=== PATIENT | female | born 1950 | race Caucasian/White ===

== ENCOUNTER 2018-03-11 10:42 | Outpatient (RCR) | payer MEDICARE, MEDICAID, SELFPAY | END 2018-04-05 23:59 | disposition home or self-care (01) | LOC: CR 10:42 | PROVIDERS: PCP Family Medicine; Visit Provider Family Medicine | DX: Z51.89 Encounter for other specified aftercare (principal) ==

== ENCOUNTER 2018-07-29 14:36 | Emergency (ER) | payer MEDICARE, MEDICAID, SELFPAY ==
[2018-07-29 14:41] VITALS: BP 130/70; PULSE 80; RESP 16; TEMP 36.6; O2SAT 98
--- NOTE | 2018-07-29 16:28 | W.ED.GENAD ---
Discharge Plan Disposition Patient Disposition: HOME Condition: Fair Discharge Details Chief Complaint: RespSymp Clinical Impression: COPD (chronic obstructive pulmonary disease), URI (upper respiratory infection) Reason For Visit: uri Primary Care Provider: John Diaz ED Provider: Meggan Hernandez Home Meds and New Rx's Prescriptions: New doxycycline hyclate 100 mg capsule 100 mg PO BID Qty: 8 RF: 0 prednisone 20 mg tablet 40 mg PO DAILY Qty: 6 RF: 0 Continued lorazepam 1 mg tablet 1 mg PO HS MDD 2 mg Qty: 40 RF: 1 Combivent Respimat 4 GM mist 1 puff Inhalation QID Qty: 3 RF: 4 citalopram 20 MG tablet 40 mg PO DAILY Qty: 180 RF: 3 gabapentin 300 MG capsule 300 mg PO 1 tab am, 2tabs pm Qty: 270 RF: 4 hydroxychloroquine 200 MG tablet 200 mg PO DAILY Qty: 90 RF: 4 epinephrine [EpiPen 2-Mikel] 0.3 MG/0.3 ML auto-injector 0.3 mg IM ONCE Qty: 1 RF: 3 triamterene-hydrochlorothiazid 1 EACH capsule 1 tab-cap PO DAILY Qty: 90 RF: 4 Stiolto Respimat 2.5-2.5 mcg/actuation mist 2 puff IH DAILY Qty: 4 RF: 4 metoprolol succinate 25 mg tablet extended release 24 hr 25 mg PO DAILY Qty: 90 RF: 4 atorvastatin 80 mg tablet 80 mg PO QPM Qty: 90 RF: 4 levothyroxine 50 mcg tablet 50 mcg PO DAILY Qty: 90 RF: 4 lisinopril 2.5 mg tablet 2.5 mg PO DAILY Qty: 90 RF: 4 albuterol sulfate 2.5 MG/3 ML solution for nebulization 2.5 mg Inhalation Q4H PRN PRN30 Days RF: 2 Space Chamber Plus 1 EACH spacer 1 ea Miscellaneous PRN PRNQty: 1 RF: 0 PROVENTIL HFA 18 GM HFA.AER.AD 2 puff Inhalation Q6H PRN Qty: 1 RF: 11 acetaminophen [Tylenol] 325 MG tablet 650 mg PO Q4H PRN PRNRF: 0 aspirin 81 MG tablet,delayed release (DR/EC) 81 mg PO DAILY RF: 0 nitroglycerin [Nitrostat] 0.4 MG tablet, sublingual 0.4 mg Sublingual Q5 MIN PRN X3 PRN (Reason: Chest Pain) RF: 0 Discharge Instructions Instructions: Upper Respiratory Infection (ED) Additional Instructions: Encourage hydration. Tylenol and/or ibuprofen as needed for discomfort. Take prednisone 40 mg daily as prescribed. Doxycycline twice daily. If you develop shortness of breath, fever/chills, inability to stay hydrated or other new/worsening symptoms please seek care urgently once again. Please follow-up with primary care for reevaluation in 1 week. Referrals: John Diaz MD [Primary Care Provider] - Discharge Data Discharge Date/Time-TO BE ENTERED AT DEPARTURE: 07/29/18 16:38 HPI General Mode of arrival: ambulatory. Date/Time Provider Initiated Documentation: 07/29/18 16:14. Limitations to Documentation: no limitations. Information obtained by: patient. History of Present Illness 67 year old F presents to the emergency department with the chief complaint of cough, sore throat, described as moderate, and is localized to the mouth (sore throat). Patient reports no radiation. Patient started experiencing this day(s) (2) and it has been constant. No relieving factors improve symptom(s), No exacerbating factors reported . Patient notes cough and shortness of breath (associated with cough); denies chest pain, diaphoresis, fever/chills, headaches and loss of appetite. Patient did receive the following treatments prior to arrival, none Related Data Home Medications Medication Instructions Recorded Confirmed Combivent Respimat 1 puff INHALATION QID #3 inhaler 08/27/17 07/29/18 citalopram 40 mg PO DAILY #180 tab-cap 10/09/17 07/29/18 gabapentin 300 mg PO 1 tab am, 2tabs pm #270 10/09/17 07/29/18 tab hydroxychloroquine 200 mg PO DAILY #90 tab-cap 11/08/17 07/29/18 epinephrine [EpiPen 2-Mikel] 0.3 mg IM ONCE #1 ea 12/14/17 07/23/18 Proventil Hfa 2 puff INHALATION Q6H PRN #1 01/11/18 07/29/18 inhaler Space Chamber Plus #1 spacer 01/11/18 07/23/18 albuterol sulfate 2.5 mg INHALATION Q4H PRN PRN 30 01/11/18 07/29/18 Days vial acetaminophen [Tylenol] 650 mg PO Q4H PRN PRN tab 03/01/18 07/23/18 aspirin 81 mg PO DAILY tabec 03/01/18 07/29/18 nitroglycerin [Nitrostat] 0.4 mg SUBLINGUAL Q5 MIN PRN X3 03/01/18 07/29/18 PRN tab triamterene-hydrochlorothiazid 1 tab-cap PO DAILY #90 tab-cap 04/04/18 07/29/18 lorazepam 1 mg tablet 1 mg PO HS #40 tab MDD 2 mg 05/28/18 07/29/18 tiotropium 2.5 mcg-olodaterol 2.5 2 puff IH DAILY #4 gm 06/04/18 07/29/18 mcg/actuation mist for inhalation metoprolol succinate ER 25 mg 25 mg PO DAILY #90 tab 06/17/18 07/29/18 tablet,extended release 24 hr atorvastatin 80 mg tablet 80 mg PO QPM #90 tab 06/18/18 07/29/18 levothyroxine 50 mcg tablet 50 mcg PO DAILY #90 tab-cap 07/08/18 07/29/18 lisinopril 2.5 mg tablet 2.5 mg PO DAILY #90 tab-cap 07/15/18 07/29/18 doxycycline hyclate 100 mg PO BID #8 cap 07/29/18 prednisone 40 mg PO DAILY #6 tab 07/29/18 Previous Rx's Medication Instructions Recorded Combivent Respimat 1 puff INHALATION QID #3 inhaler 08/27/17 citalopram 40 mg PO DAILY #180 tab-cap 10/09/17 gabapentin 300 mg PO 1 tab am, 2tabs pm #270 10/09/17 tab hydroxychloroquine 200 mg PO DAILY #90 tab-cap 11/08/17 epinephrine [EpiPen 2-Mikel] 0.3 mg IM ONCE #1 ea 12/14/17 Proventil Hfa 2 puff INHALATION Q6H PRN #1 01/11/18 inhaler Space Chamber Plus #1 spacer 01/11/18 albuterol sulfate 2.5 mg INHALATION Q4H PRN PRN 30 01/11/18 Days vial acetaminophen [Tylenol] 650 mg PO Q4H PRN PRN tab 03/01/18 aspirin 81 mg PO DAILY tabec 03/01/18 nitroglycerin [Nitrostat] 0.4 mg SUBLINGUAL Q5 MIN PRN X3 03/01/18 PRN tab triamterene-hydrochlorothiazid 1 tab-cap PO DAILY #90 tab-cap 04/04/18 lorazepam 1 mg tablet 1 mg PO HS #40 tab MDD 2 mg 05/28/18 tiotropium 2.5 mcg-olodaterol 2.5 2 puff IH DAILY #4 gm 06/04/18 mcg/actuation mist for inhalation metoprolol succinate ER 25 mg 25 mg PO DAILY #90 tab 06/17/18 tablet,extended release 24 hr atorvastatin 80 mg tablet 80 mg PO QPM #90 tab 06/18/18 levothyroxine 50 mcg tablet 50 mcg PO DAILY #90 tab-cap 07/08/18 lisinopril 2.5 mg tablet 2.5 mg PO DAILY #90 tab-cap 07/15/18 doxycycline hyclate 100 mg PO BID #8 cap 07/29/18 prednisone 40 mg PO DAILY #6 tab 07/29/18 Allergies Allergy/AdvReac Type Severity Reaction Status Date / Time bee venom protein (honey bee) Allergy Severe Anaphylaxsi Unverified 07/29/18 14:46 s tetanus toxoid, adsorbed Allergy Severe swelling,fe Unverified 07/29/18 14:46 geneva benzonatate Allergy Mild rash Unverified 07/29/18 14:46 [From Tessalon Perles] amoxicillin trihydrate AdvReac Intermediate Diarrhea - Unverified 07/29/18 14:46 [From Augmentin] Severe potassium clavulanate AdvReac Intermediate Diarrhea - Unverified 07/29/18 14:46 [From Augmentin] Severe insects Allergy Severe Anaphylaxsi Uncoded 07/29/18 14:46 s General Stated Complaint: RespSymp HOLLIS: 4 Review of Systems Constitutional Reports as per HPI, Denies chills, Denies fever(s), Denies headache(s) and Denies poor appetite Eyes Reports as per HPI, Denies eye discharge and Denies irritation ENT Reports as per HPI, Denies ear discharge, Denies otalgia, Denies facial pain, Denies headache(s), Denies lip swelling, Reports nasal congestion, Reports nasal discharge, Denies neck pain, Denies sinus pain and Reports sore throat Cardiovascular Reports as per HPI, Denies chest pain, Denies dyspnea and Denies dyspnea on exertion Respiratory Reports as per HPI, Denies chest congestion, Reports cough, Denies pain on inspiration, Denies pain with cough, Denies dyspnea, Denies dyspnea on exertion and Denies wheezing Gastrointestinal Reports as per HPI, Denies abdominal pain, Denies change in bowel habits, Denies nausea and Denies vomiting Musculoskeletal Denies neck pain Integumentary/Breasts Reports as per HPI and Denies rash Neurologic Denies headache(s) Allergic/Immunologic Denies lip swelling and Denies wheezing [facility] Medical History ADHD Anxiety COPD (chronic obstructive pulmonary disease) HTN (hypertension) Hymenoptera allergy Hypothyroidism Lupus (systemic lupus erythematosus) Petit mal epilepsy Family History Mother Asthma Father Diabetes Grandfather No problems noted. Grandfather No problems noted. Grandmother No problems noted. Grandmother No problems noted. Social History household members: children and other details: 4 WITH 3 SONS current occupational status: disabled frequency: 1-2 times per week duration: 15-30 minutes/day Smoking/Tobacco Use Status: Former Tobacco Use alcohol intake: current alcohol intake frequency: a few times a month substance use type: does not use seatbelt use: always Exam Const General: cooperative, healthy appearing, comfortable, no acute distress, well developed and well groomed Nutritional Appearance: average body habitus and well nourished Orientation: alert and awake [facility] Head: normal to inspection, normocephalic and atraumatic Ears: hearing grossly normal bilaterally, external ears normal and TM's normal bilaterally General nose exam: external nose normal and nares normal Face and sinus: normal facial exam, sinuses nontender and face symmetric Mouth: oral mucosae normal, lip normal, tongue normal, oropharynx normal and moist mucous membranes Teeth and gingiva: dentition normal Throat: posterior oropharynx normal, tonsils normal and uvula midline Eyes General: appearance normal, both eyes and all related structures Neck Neck: normal visual inspection, full ROM, no lymphadenopathy and no meningeal signs Resp Effort & Inspection: normal respiratory effort, able to speak in complete sentences and no respiratory distress Auscultation: no rales, no rhonchi and wheezes (diffuse expiratory wheeze) Cardio Rate: regular rate Rhythm: regular rhythm Heart Sounds: S1 normal and S2 normal Skin General skin exam: no rashes or lesions noted Neuro General: alert and awake Cognition: normal cognition Speech: speech normal Gait: normal gait Psych Appearance: grossly normal and well kempt Mental Status: mental status grossly normal Speech and Movement: speech and movement normal Course Vital Signs Temperature 36.6 C 07/29/18 14:41 Pulse 80 07/29/18 14:41 Respiratory Rate 16 07/29/18 14:41 Blood Pressure 130/70 07/29/18 14:41 Pulse Oximetry 98 07/29/18 14:41 Temperature 36.6 C 07/29/18 14:41 Temperature Source Temporal Artery Scan 07/29/18 14:41 Pulse 80 07/29/18 14:41 Respiratory Rate 16 07/29/18 14:41 Respiratory Effort 07/29/18 14:52 Respiratory Depth Normal 07/29/18 14:52 Blood Pressure 130/70 07/29/18 14:41 Blood Pressure Position Sitting 07/29/18 14:41 Pulse Oximetry 98 07/29/18 14:41 Oxygen Delivery Method Room Air 07/29/18 14:41 Oxygen Flow Rate 0 07/29/18 14:41 Pain Level 3 07/29/18 14:41 Lab/Test Results Lab/Test Results: 07/29/18 15:00 Nasopharynx Influenza Types A,B Antigen - Final Patient is 67-year-old female with history of COPD, presenting today with chief complaints of sore throat and cough that began 2 days ago. Reports that multiple family members have been sick. States that she can have shortness of breath associated with cough but otherwise no shortness of breath based on exertion or when at rest. She denies any chest pain. Denies any GI upset. Denies any otalgia. Patient has history of anxiety, petit mal epilepsy, lupus, hypothyroidism, hypertension, ADHD, N STEMI, COPD. On exam, patient is noted to have faint expiratory really wheezing all fraire. Vital signs within normal limits. She appears nontoxic. Did note cough which appears to be dry, patient does report is been dry at home. No abnormal findings on HEENT exam. Patient has URI. However, given her history of COPD, I feel the treatment is appropriate at this time. She will largely benefit from steroids particularly given the expiratory wheeze. Patient will be placed on doxycycline and prednisone. As tomorrow is , will give her enough prednisone and steroids for tonight and tomorrow until pharmacies are open at the following day. Patient I discussed new/worsening symptoms and when to seek care urgently once again. Advised to follow-up with primary care in 1 week for reevaluation. All of her questions and concerns were addressed and she is in agreement this plan.
[2018-07-29] MEDS: Doxycycline Hyclate 100 MG CAP 400 MG PO (16:32)
[2018-07-29] MEDS: predniSONE 20 MG TAB 80 MG PO (16:32)
== END 2018-07-29 16:38 | disposition home or self-care (01) ==
PROVIDERS: Emergency Provider Physician Assistant; PCP Family Medicine
DX: J06.9 Acute upper respiratory infection, unspecified (principal); J44.9 Chronic obstructive pulmonary disease, unspecified; I10 Essential (primary) hypertension; Z87.891 Personal history of nicotine dependence
CPT/HCPCS: 87449; 99283; J7512

== ENCOUNTER 2018-09-30 02:48 | Inpatient (IN) | payer MEDICARE, MEDICAID, SELFPAY ==
[2018-09-30] VITALS (33 sets, daily range): BP systolic 101–154; BP diastolic 38–110; PULSE 65–91; RESP 2–22; TEMP 36.6–37.5; O2SAT 88–97
--- NOTE | 2018-09-30 03:16 | W.ED.GENAD ---
Discharge Plan Disposition Patient Disposition: [facility] INPATIENT Condition: Fair Discharge Details Chief Complaint: SOB Clinical Impression: Acute exacerbation of chronic obstructive pulmonary disease (COPD) Reason For Visit: ANETA Primary Care Provider: John Diaz ED Provider: Cristian Nolen [place] Meds and New Rx's Prescriptions: No Action citalopram 20 MG tablet 40 mg PO DAILY Qty: 180 RF: 3 gabapentin 300 MG capsule 300 mg PO 1 tab am, 2tabs pm Qty: 270 RF: 4 hydroxychloroquine 200 MG tablet 200 mg PO DAILY Qty: 90 RF: 4 epinephrine [EpiPen 2-Mikel] 0.3 MG/0.3 ML auto-injector 0.3 mg IM ONCE Qty: 1 RF: 3 triamterene-hydrochlorothiazid 1 EACH capsule 1 tab-cap PO DAILY Qty: 90 RF: 4 Stiolto Respimat 2.5-2.5 mcg/actuation mist 2 puff IH DAILY Qty: 4 RF: 4 metoprolol succinate 25 mg tablet extended release 24 hr 25 mg PO DAILY Qty: 90 RF: 4 atorvastatin 80 mg tablet 80 mg PO QPM Qty: 90 RF: 4 levothyroxine 50 mcg tablet 50 mcg PO DAILY Qty: 90 RF: 4 lisinopril 2.5 mg tablet 2.5 mg PO DAILY Qty: 90 RF: 4 lorazepam 1 mg tablet 1 mg PO HS MDD 2 mg Qty: 40 RF: 1 Combivent Respimat 20-100 mcg/actuation mist 1 puff Inhalation Q4H PRN (Reason: Exacerbation COPD) Qty: 3 RF: 4 albuterol sulfate 2.5 MG/3 ML solution for nebulization 2.5 mg Inhalation Q4H PRN PRN30 Days RF: 2 Space Chamber Plus 1 EACH spacer 1 ea Miscellaneous PRN PRNQty: 1 RF: 0 PROVENTIL HFA 18 GM HFA.AER.AD 2 puff Inhalation Q6H PRN Qty: 1 RF: 11 acetaminophen [Tylenol] 325 MG tablet 650 mg PO Q4H PRN PRNRF: 0 aspirin 81 MG tablet,delayed release (DR/EC) 81 mg PO DAILY RF: 0 nitroglycerin [Nitrostat] 0.4 MG tablet, sublingual 0.4 mg Sublingual Q5 MIN PRN X3 PRN (Reason: Chest Pain) RF: 0 Medical Decision Making Patient presenting with COPD exacerbation associated with low-grade fevers. No real URI symptoms to speak of. Room air saturations here, when I turn off oxygen, dipped into the 80s. She is tachypneic with some pursed lip breathing. IV is in place from EMS. We will go ahead and get EKG, chest x-ray and laboratory studies. We will give another nebulizer here. Will start her on steroids as well as antibiotics for COPD exacerbation. She will likely require admission given her hypoxemia on room air. Patient's chest x-ray shows no infiltrates. EKG is unchanged from previous done this summer. Laboratory studies have a negative troponin. White count is normal. Chemistries unremarkable other than magnesium being a little low, this will be replaced. Case discussed with hospitalist for admission. Patient will be placed on MedSurg for further management of COPD exacerbation. Medical Records Medical records reviewed: Yes I reviewed the patient's medical records. Lab Data Lab results reviewed: Yes I reviewed the patient's lab results. ECG Data Attestation: I personally reviewed and interpreted this ECG (s) as follows: Prior ECG tracings: available for review Interpretation: Sinus rhythm at a rate of 85. Normal axis and intervals. Nonspecific ST depressions in the inferior lateral leads which have been present since February 2018. They do not appear significantly different. HPI General Mode of arrival: EMS. Date/Time Provider Initiated Documentation: 09/30/18 03:06. Limitations to Documentation: no limitations. Information obtained by: patient and old records reviewed. HPI Narrative: Patient presents by ambulance with increasing shortness of breath and wheezing. Patient has history of COPD. She has had increasing shortness of breath over days to weeks. She reports low-grade fevers for the last couple of days. She denies having nasal congestion or discharge, sore throat, earaches. She has a dry nonproductive cough. She denies having chest pain. She denies any GI symptoms. She denies leg pain or leg swelling. She ended up using her Combivent inhaler a number of times tonight. She did use an albuterol updraft. She has also taken Ativan because she was becoming so anxious. EMS reports room air saturations in the 80s. She received an updraft in route to the hospital. On nasal cannula oxygen her O2 saturations are in the low to mid 90s. She is not on oxygen chronically. Related Data Home Medications Medication Instructions Recorded Confirmed citalopram 40 mg PO DAILY #180 tab-cap 10/09/17 09/30/18 gabapentin 300 mg PO 1 tab am, 2tabs pm #270 10/09/17 09/30/18 tab hydroxychloroquine 200 mg PO DAILY #90 tab-cap 11/08/17 09/30/18 epinephrine [EpiPen 2-Mikel] 0.3 mg IM ONCE #1 ea 12/14/17 09/30/18 Proventil Hfa 2 puff INHALATION Q6H PRN #1 01/11/18 09/30/18 inhaler Space Chamber Plus #1 spacer 01/11/18 09/03/18 albuterol sulfate 2.5 mg INHALATION Q4H PRN PRN 30 01/11/18 09/30/18 Days vial acetaminophen [Tylenol] 650 mg PO Q4H PRN PRN tab 03/01/18 09/30/18 aspirin 81 mg PO DAILY tabec 03/01/18 09/30/18 nitroglycerin [Nitrostat] 0.4 mg SUBLINGUAL Q5 MIN PRN X3 03/01/18 09/30/18 PRN tab triamterene-hydrochlorothiazid 1 tab-cap PO DAILY #90 tab-cap 04/04/18 09/30/18 tiotropium 2.5 mcg-olodaterol 2.5 2 puff IH DAILY #4 gm 06/04/18 09/30/18 mcg/actuation mist for inhalation metoprolol succinate ER 25 mg 25 mg PO DAILY #90 tab 06/17/18 09/30/18 tablet,extended release 24 hr atorvastatin 80 mg tablet 80 mg PO QPM #90 tab 06/18/18 09/30/18 levothyroxine 50 mcg tablet 50 mcg PO DAILY #90 tab-cap 07/08/18 09/30/18 lisinopril 2.5 mg tablet 2.5 mg PO DAILY #90 tab-cap 07/15/18 09/30/18 lorazepam 1 mg tablet 1 mg PO HS #40 tab MDD 2 mg 08/07/18 09/30/18 ipratropium 20 mcg-albuterol 100 1 puff INHALATION Q4H PRN #3 gm 09/04/18 09/30/18 mcg/actuation mist for inhalation Previous Rx's Medication Instructions Recorded citalopram 40 mg PO DAILY #180 tab-cap 10/09/17 gabapentin 300 mg PO 1 tab am, 2tabs pm #270 10/09/17 tab hydroxychloroquine 200 mg PO DAILY #90 tab-cap 11/08/17 epinephrine [EpiPen 2-Mikel] 0.3 mg IM ONCE #1 ea 12/14/17 Proventil Hfa 2 puff INHALATION Q6H PRN #1 01/11/18 inhaler Space Chamber Plus #1 spacer 01/11/18 albuterol sulfate 2.5 mg INHALATION Q4H PRN PRN 30 01/11/18 Days vial acetaminophen [Tylenol] 650 mg PO Q4H PRN PRN tab 03/01/18 aspirin 81 mg PO DAILY tabec 03/01/18 nitroglycerin [Nitrostat] 0.4 mg SUBLINGUAL Q5 MIN PRN X3 03/01/18 PRN tab triamterene-hydrochlorothiazid 1 tab-cap PO DAILY #90 tab-cap 04/04/18 tiotropium 2.5 mcg-olodaterol 2.5 2 puff IH DAILY #4 gm 06/04/18 mcg/actuation mist for inhalation metoprolol succinate ER 25 mg 25 mg PO DAILY #90 tab 06/17/18 tablet,extended release 24 hr atorvastatin 80 mg tablet 80 mg PO QPM #90 tab 06/18/18 levothyroxine 50 mcg tablet 50 mcg PO DAILY #90 tab-cap 07/08/18 lisinopril 2.5 mg tablet 2.5 mg PO DAILY #90 tab-cap 07/15/18 lorazepam 1 mg tablet 1 mg PO HS #40 tab MDD 2 mg 08/07/18 ipratropium 20 mcg-albuterol 100 1 puff INHALATION Q4H PRN #3 gm 09/04/18 mcg/actuation mist for inhalation Allergies Allergy/AdvReac Type Severity Reaction Status Date / Time bee venom protein (honey bee) Allergy Severe Anaphylaxsi Unverified 09/30/18 03:06 s tetanus toxoid, adsorbed Allergy Severe swelling,fe Unverified 09/30/18 03:06 geneva benzonatate Allergy Mild rash Unverified 09/30/18 03:06 [From Tessalon Perles] amoxicillin trihydrate AdvReac Intermediate Diarrhea - Unverified 09/30/18 03:06 [From Augmentin] Severe potassium clavulanate AdvReac Intermediate Diarrhea - Unverified 09/30/18 03:06 [From Augmentin] Severe insects Allergy Severe Anaphylaxsi Uncoded 09/30/18 03:06 s General Stated Complaint: SOB HOLLIS: 3 Review of Systems Constitutional Denies chills, Reports fever(s), Denies headache(s), Denies malaise and Denies weakness Eyes Denies eye discharge and Denies eye pain ENT Denies otalgia, Denies facial pain, Denies headache(s), Denies nasal congestion, Denies nasal discharge and Denies sore throat Cardiovascular Denies chest pain, Denies diaphoresis, Denies syncope, Denies pedal edema, Denies palpitations and Reports dyspnea Respiratory Reports cough, Reports dyspnea and Reports wheezing Gastrointestinal Denies abdominal pain, Denies diarrhea, Denies nausea and Denies vomiting Genitourinary Denies dysuria, Denies pelvic pain and Denies flank pain Musculoskeletal Denies back pain, Denies myalgias and Denies numbness Integumentary/Breasts Denies rash Neurologic Denies syncope, Denies headache(s), Denies numbness and Denies weakness Endocrine Denies palpitations Allergic/Immunologic Reports wheezing [facility] Medical History Anxiety (Chronic 09/03/14) 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 Grandfather No problems noted. Grandmother No problems noted. Grandmother No problems noted. Social History household members: children and other details: 4 WITH 3 SONS current occupational status: disabled frequency: 1-2 times per week duration: 15-30 minutes/day Smoking and Tabacco status: Former Tobacco Use alcohol intake: current alcohol intake frequency: a few times a month substance use type: does not use Seatbelt use: always Exam Const General: cooperative and no acute distress Orientation: alert and oriented x3 HENMT Head: normocephalic and atraumatic Neck Neck: normal visual inspection, trachea midline and supple Resp Effort & Inspection: cough, pursed lip breathing, tachypneic, no tripod positioning and no use of accessory muscles Auscultation: wheezes Cardio Rate: regular rate Rhythm: regular rhythm Heart Sounds: S1 normal and S2 normal Pulses: radial pulses present GI Palpation: soft, not firm and nontender Skin Rashes: no rashes Neuro General: alert, oriented x3, no focal motor deficits and CN's II-XI intact bilaterally Extrem General: no clubbing, cyanosis or edema and no calf tenderness Course Vital Signs Temperature 98.8 F 09/30/18 02:48 Pulse 90 09/30/18 02:48 Respiratory Rate 20 09/30/18 02:48 Blood Pressure 145/80 H 09/30/18 02:48 Pulse Oximetry 93 L 09/30/18 02:48 Temperature 98.8 F 09/30/18 02:48 Temperature Source Temporal Artery Scan 09/30/18 02:48 Pulse 90 09/30/18 02:48 Respiratory Rate 20 09/30/18 03:01 Respiratory Effort 09/30/18 03:01 Respiratory Depth Shallow 09/30/18 03:01 Respiratory Pattern Irregular 09/30/18 03:01 Blood Pressure 145/80 H 09/30/18 02:48 Pulse Oximetry 93 L 09/30/18 02:48 Oxygen Delivery Method Nasal Cannula 09/30/18 02:48 Oxygen Flow Rate 2 09/30/18 02:48 Pain Level 0 09/30/18 02:48
--- NOTE | 2018-09-30 03:45 | DI.RAD_ITS ---
SYMPTOMS/DIAGNOSIS: SHORTNESS OF BREATH PORTABLE AP CHEST: Comparison is made with [id number]. The heart size is normal. There are underlying emphysematous and fibrotic changes. The lungs are suboptimally inflated. No infiltrate or effusion is seen. Mild pulmonary edema can not be excluded. There is an old proximal humeral fracture on the left. IMPRESSION: Limited exam. Question of mild pulmonary edema vs poor pulmonary inflation.
[2018-09-30] MEDS: methylPREDNISolone SUCC 125 MG VIAL IVP (03:58)
[2018-09-30] MEDS: Albuterol 2.5 MG/3 ML INH SOLN VIAL UPD (03:58)
[2018-09-30 03:59] LABS: Abs Immature Grans 0.02 k/cumm (0.0-0.09); Absolute Basophil Count 0.02 k/cumm (0.0-0.2); Absolute Eosinophil Count 0.04 k/cumm (0.0-0.7); Absolute Lymphocyte Count 0.62 k/cumm (1.2-3.4); Absolute Monocyte Count 0.65 k/cumm (0.11-0.7); Absolute Neutrophil Count 5.18 k/cumm (1.2-6.7); Basophils % 0.3; Eosinophils % 0.6; HCT 41.1 % (36.0-46.0); HGB 13.8 g/dL (12.0-15.5); Immature Grans % 0.3; Lymphocytes % 9.5; Mean Corp. HGB Concentration 33.6 g/dL (32.0-36.0); Mean Corpuscular Hemoglobin 29.9 pg (27.0-33.0); Mean Corpuscular Volume 89.2 fL (80-95); Mean Platelet Volume 11.2 fL (8.0-11.0); Neutrophils % 79.3; Platelet Count 197 x1000/uL (130-400); RBC 4.61 m/cumm (4.00-5.20); RBC Distribution Width 12.9 % (11.7-14.6); White Blood Cell Count 6.53 k/cumm (4.4-10.8)
[2018-09-30] MEDS: Normal Saline Flush 10 ML SYR IVP ×3 (03:59→20:34)
--- NOTE | 2018-09-30 04:05 | DI.VRAD_ITS ---
EXAM: XR Chest, 1 View EXAM DATE/TIME: 09/30/2018 3:35 AM CLINICAL HISTORY: 67 years old, female; Signs and symptoms; Cough and shortness of breath; Patient HX: SOB and cough, HX copd TECHNIQUE: XR of the chest, 1 view. COMPARISON: CR CHEST 2 VIEWS PA,LAT 02/28/2018 4:37 PM FINDINGS: Lungs: Pulmonary vessels somewhat indistinct. No focal infiltrate. Pleural space: Unremarkable. No evidence of pneumothorax. Heart/Mediastinum: Unremarkable. Heart size within normal limits for technique. Bones/joints: Unremarkable. IMPRESSION: Possibly mild pulmonary edema. Dictated and Authenticated by: Saul Araujo MD. Ordering:LAURE Foster MD
[2018-09-30 04:07] LABS: BUN 11 mg/dL (7-18); CO2 30.4 mmol/L (21.0-32.0); CREATININE 0.96 mg/dL (0.55-1.02); Chloride 99 mmol/L (98-107); Estimated GFR 57.63 (mL/min/1.73m2); Glucose 115 mg/dL (70-100); Magnesium 1.6 mg/dL (1.8-2.4); Potassium 3.8 mmol/L (3.5-5.1); Troponin I 0.02 ng/mL (0.00-0.06)
[2018-09-30 04:22] LABS: Anion Gap 7.6 mmol/L (3-11); Sodium 137 mmol/L (136-145)
[2018-09-30] MEDS: MAGNESIUM SULFATE 2 GM/50 ML BAG IVPB ×2 (04:24→11:34)
--- NOTE | 2018-09-30 04:54 | HPE_ITS ---
Date of service: 09/30/18 Time of Service: 04:54 Assessment and Plan (1) COPD exacerbation: Start date: 09/30/18 Start time: 05:15 Current visit: Yes Status: Acute This a 67-year-old lady who was admitted for COPD exacerbation having responded to nebulizer treatments and Solu-Medrol in the emergency room along with oxygen supplementation. Chest x-ray did show possible vascular congestion though she has no history of CHF with [place] CAD but no history of stenting in the past. She received Lasix IV and has responded though she still has pursed lip breathing and has very little air movement. She had a low magnesium with IV magnesium given and this will be followed up during the hospital stay. Her potassium is in normal range which should be followed with supplement if needed while on diuresis. Continue treatment with Rocephin for coverage of possible bronchitis or community acquired pneumonia not manifested on chest x-ray with follow-up chest x-ray as indicated. She is usually not on oxygen at home though she is oxygen dependent during the initial point of the admission this should be reevaluated prior to discharge. She does not appear to have much respiratory reserve. She is a full code. (2) CAD (coronary artery disease), [place] coronary artery: Current visit: Yes Status: Chronic Patient has no symptoms of cardiac ischemia with her respiratory distress and will have troponins trended with monitoring without telemetry at this point. If her labs become positive consider monitor with telemetry being that she is a full code. (3) Anxiety: Current visit: No Status: Chronic Patient is quite anxious with her respiratory distress and did treat with Ativan at home. This is a chronic therapy for her chronic anxiety and will be continued during this hospital stay. Watch for oversedation. History of Present Illness Chief Complaint: Increasing Dyspnea with Wheeze and low grade fever Narrative: This is a 67 year old female patient who presents by ambulance with increasing shortness of breath and wheezing. Patient has history of COPD. She has had increasing shortness of breath over days at the onset of cold symptoms 2 weeks ago while she was in [place] and worsening the night of admission. She reports low-grade fevers for the last couple of days. She denies having nasal congestion or discharge, sore throat, earaches. She has a dry nonproductive cough. She denies having chest pain. She denies any GI symptoms. She denies leg pain or leg swelling. She ended up using her Combivent inhaler a number of times tonight prior to admission. She did use an albuterol updraft. She has also taken Ativan because she was becoming so anxious. EMS reports room air saturations in the 80s. She received an updraft in route to the hospital. On nasal cannula oxygen her O2 saturations are in the low to mid 90s. She is not on oxygen chronically. She does have a history of CAD and chest x-ray did reveal vascular congestion though she has never had a history of heart failure. Review of Systems Review of Systems Constitutional Denies chills, Reports fever(s), Denies headache(s), Denies malaise and Denies weakness Eyes Denies eye discharge and Denies eye pain ENT Denies otalgia, Denies facial pain, Denies headache(s), Denies nasal congestion, Denies nasal discharge and Denies sore throat Cardiovascular Denies chest pain, Denies diaphoresis, Denies syncope, Denies pedal edema, Denies palpitations and Reports dyspnea Respiratory Reports cough, Reports dyspnea and Reports wheezing Gastrointestinal Denies abdominal pain, Denies diarrhea, Denies nausea and Denies vomiting Genitourinary Denies dysuria, Denies pelvic pain and Denies flank pain Musculoskeletal Denies back pain, Denies myalgias and Denies numbness Integumentary/Breasts Denies rash Neurologic Denies syncope, Denies headache(s), Denies numbness and Denies weakness Endocrine Denies palpitations Allergic/Immunologic Reports wheezing [facility] Medical History Anxiety (Chronic 09/03/14) 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 Grandfather No problems noted. Grandmother No problems noted. Grandmother No problems noted. Social History household members: children and other details: 4 WITH 3 SONS current occupational status: disabled frequency: 1-2 times per week duration: 15-30 minutes/day Smoking and Tabacco status: Former Tobacco Use alcohol intake: current alcohol intake frequency: a few times a month substance use type: does not use Seatbelt use: always Meds Home Medications Medication Instructions Recorded Confirmed Type citalopram 40 mg PO DAILY #180 tab-cap 10/09/17 09/30/18 Rx gabapentin 300 mg PO 1 tab am, 2tabs pm #270 10/09/17 09/30/18 Rx tab hydroxychloroquine 200 mg PO DAILY #90 tab-cap 11/08/17 09/30/18 Rx epinephrine [EpiPen 2-Mikel] 0.3 mg IM ONCE #1 ea 12/14/17 09/30/18 Rx Proventil Hfa 2 puff INHALATION Q6H PRN #1 01/11/18 09/30/18 Rx inhaler Space Chamber Plus #1 spacer 01/11/18 09/03/18 Rx albuterol sulfate 2.5 mg INHALATION Q4H PRN PRN 30 01/11/18 09/30/18 Rx Days vial acetaminophen [Tylenol] 650 mg PO Q4H PRN PRN tab 03/01/18 09/30/18 Rx aspirin 81 mg PO DAILY tabec 03/01/18 09/30/18 Rx nitroglycerin [Nitrostat] 0.4 mg SUBLINGUAL Q5 MIN PRN X3 03/01/18 09/30/18 Rx PRN tab triamterene-hydrochlorothiazid 1 tab-cap PO DAILY #90 tab-cap 04/04/18 09/30/18 Rx tiotropium 2.5 mcg-olodaterol 2.5 2 puff IH DAILY #4 gm 06/04/18 09/30/18 Rx mcg/actuation mist for inhalation metoprolol succinate ER 25 mg 25 mg PO DAILY #90 tab 06/17/18 09/30/18 Rx tablet,extended release 24 hr atorvastatin 80 mg tablet 80 mg PO QPM #90 tab 06/18/18 09/30/18 Rx levothyroxine 50 mcg tablet 50 mcg PO DAILY #90 tab-cap 07/08/18 09/30/18 Rx lisinopril 2.5 mg tablet 2.5 mg PO DAILY #90 tab-cap 07/15/18 09/30/18 Rx lorazepam 1 mg tablet 1 mg PO HS #40 tab MDD 2 mg 08/07/18 09/30/18 Rx ipratropium 20 mcg-albuterol 100 1 puff INHALATION Q4H PRN #3 gm 09/04/18 09/30/18 Rx mcg/actuation mist for inhalation Allergies Allergy/AdvReac Type Severity Reaction Status Date / Time bee venom protein (honey bee) Allergy Severe Anaphylaxsi Unverified 09/30/18 03:06 s tetanus toxoid, adsorbed Allergy Severe swelling,fe Unverified 09/30/18 03:06 geneva benzonatate Allergy Mild rash Unverified 09/30/18 03:06 [From Tessalon Perles] amoxicillin trihydrate AdvReac Intermediate Diarrhea - Unverified 09/30/18 03:06 [From Augmentin] Severe potassium clavulanate AdvReac Intermediate Diarrhea - Unverified 09/30/18 03:06 [From Augmentin] Severe insects Allergy Severe Anaphylaxsi Uncoded 09/30/18 03:06 s Exam Const General: cooperative, acute distress mild and not anxious Nutritional Appearance: overweight [facility] Head: normocephalic and atraumatic Ears: external ears normal General nose exam: external nose normal Face and sinus: face symmetric Mouth: oral mucosae normal, oropharynx normal and mucous membranes dry Eyes Sclera: sclerae normal Pupils: PERRL EOM: EOM intact bilaterally Neck Neck: no lymphadenopathy and supple Thyroid: thyroid normal Chest Chest: normal inspection of the chest Resp Effort & Inspection: pursed lip breathing, no respiratory distress, tachypneic and prolonged expiratory phase Auscultation: bronchovesicular breath sounds, diminished lung sounds bilaterally, rhonchi and wheezes Cardio Jugular venous pressure: no JVD Rate: regular rate Rhythm: regular rhythm Heart Sounds: S1 normal and S2 normal Pulses: radial pulses present GI Inspection: normal to inspection Palpation: soft, no hepatosplenomegaly and nontender Percussion: normal to percussion Auscultation: normal bowel sounds General: deferred Back/Spine/Pelvis Back: no CVA tenderness and No back tenderness Cervical Spine: cervical ROM normal Thoracic/Lumbar Spine: thoracic and lumbar spine normal to inspection and kyphosis (Mild) Skin General skin exam: no rashes or lesions noted, turgor normal and dry skin ([place] tone) Lesions: no lesions Rashes: no rashes Hair: general thinning Neuro General: alert, awake and oriented x3 Cranial Nerves: CN's II-XI intact bilaterally Extrem General: full ROM, normal capillary refill, no clubbing, cyanosis or edema and muscle atrophy Psych Appearance: grossly normal and well kempt Mental Status: mental status grossly normal Mood: congruent mood Affect: anxious affect Attitude: cooperative Thought Process: normal Thought Content: normal Insight: insight good Judgment: judgment good Results Labs : 09/30/18 03:40 09/30/18 05:50 Laboratory Results - last 24 hr 09/30/18 09/30/18 03:40 03:40 WBC 6.53 RBC 4.61 Hgb 13.8 Hct 41.1 MCV 89.2 MCH 29.9 MCHC 33.6 RDW 12.9 Plt Count 197 MPV 11.2 H Immature Gran % 0.3 Neutrophils % 79.3 Lymphocytes % 9.5 Monocytes % 10.0 Eosinophils % 0.6 Basophils % 0.3 Absolute Neutrophils 5.18 Absolute Lymphocytes 0.62 L Absolute Monocytes 0.65 Absolute Eosinophils 0.04 Absolute Basophils 0.02 Sodium 137 Potassium 3.8 Chloride 99 Carbon Dioxide 30.4 Anion Gap 7.6 BUN 11 Creatinine 0.96 Estimated GFR/1.73 m2 57.63 Glucose 115 H Calcium 8.0 L Magnesium 1.6 L Troponin I 0.02 Last Vital Signs Temp 37.1 C 09/30/18 02:48 Pulse 83 09/30/18 03:58 Resp 20 09/30/18 03:58 BP 145/80 H 09/30/18 02:48 Pulse Ox 88 L 09/30/18 04:04
[2018-09-30] MEDS: Furosemide 20 MG/2 ML VIAL IVP (05:55)
[2018-09-30] MEDS: Levothyroxine 50 MCG TAB PO (05:56)
[2018-09-30 06:22] LABS: ALT 20 U/L (12-78); AST 25 U/L (15-37); Albumin 3.5 g/dL (3.4-5.0); Alkaline Phosphatase 63 U/L (46-116); Anion Gap 6.3 mmol/L (3-11); BUN 11 mg/dL (7-18); Bilirubin, Total 0.4 mg/dL (0.2-1.0); CO2 29.7 mmol/L (21.0-32.0); CREATININE 0.93 mg/dL (0.55-1.02); Calcium 8.5 mg/dL (8.5-10.1); Chloride 99 mmol/L (98-107); Estimated GFR 59.78 (mL/min/1.73m2); Glucose 136 mg/dL (70-100); Sodium 135 mmol/L (136-145); Total Protein 7.1 g/dL (6.4-8.2)
[2018-09-30 06:31] LABS: TSH (W/Ref FT4) 0.91 uIU/mL (0.358-3.74); Troponin I 0.03 ng/mL (0.00-0.06)
[2018-09-30 09:34] LABS: Troponin I 0.02 ng/mL (0.00-0.06)
[2018-09-30] MEDS: Pantoprazole 40 MG VIAL IVP (09:40)
[2018-09-30] MEDS: Hydroxychloroquine 200 MG TAB PO (09:41)
[2018-09-30] MEDS: Citalopram 20 MG TAB 40 MG PO (09:41)
[2018-09-30] MEDS: Triamterene 37.5/HCTZ 25 CAP PO (09:41)
[2018-09-30] MEDS: Lisinopril 5 MG TAB 2.5 MG PO (09:42)
[2018-09-30] MEDS: Magnesium Oxide 400 MG TAB PO ×2 (09:42→20:35)
[2018-09-30] MEDS: Aspirin E.C. 81 MG TABEC PO (09:42)
[2018-09-30] MEDS: Gabapentin 300 MG CAP PO (09:43)
[2018-09-30] MEDS: Metoprolol CR 25 MG TABCR PO (09:43)
[2018-09-30] MEDS: methylPREDNISolone SUCC 125 MG VIAL 80 MG IVP (11:33)
[2018-09-30] MEDS: Enoxaparin 40 MG/0.4 ML SYR SC (11:34)
--- NOTE | 2018-09-30 12:00 | PHARADMIT ---
Addendum entered by Amos Shelley MurrayZhang SUNITA 10/04/18 11:51: Pharmacy Note Subjective MD noted that patient is slow to recover. Objective VS-OK SA-O2-92% ON 2 L, Labs-WNL, Had BM Assessment MD ordered Combivent Inhaler prn at patients request, she refused updrafts. Plan No steroid taper yet Original Note: Addendum entered by Amos Shelley MurrayZhang [facility] 10/03/18 12:39: Pharmacy Note Subjective Patient not better today, will stay another night. Objective VS-OK SA-O2-91% Rm Air, Lytes, H&H,Plts-OK SCr-1.01 Lasst BM 09/30/2018 Assessment Rocephin & Solu-Medrol continue. Plan awaiting steroid tapeR Original Note: Addendum entered by Amos Shelley MurrayZhang [facility] 10/01/18 12:36: Pharmacy Note Subjective Flu swab negative, no other culture taken. COPD exacerbation Objective VS-OK SCr-1.05 Mag- 2.6 Wgt-71.1 kg BM yesterday Assessment On IV Rocephin for possible CAP or bronchitis. On IV steroids. Plan Patient used her own supply of Lorazepam last night, nursing has removed it and the med is in the Pharmacy Patients med drawer Original Note: Admission Pharmacy Clinical Review COPD exacerbation Code Status Full Code Current Weight 68.5 kg Renally Cleared and Narrow Therapeutic Index Meds Crcl ~49.3 mL/min using adjusted body weight current meds okay; triamterene/HCTZ- contraindicated in pts wit anuria, acute and chronic renal insufficiency, or significant renal impairment QTc Value / Action Taken QTc 445 BP Control, Fever BP 101/59 afebrile Electrolytes reviewed Na 135 mag 1.6 DVT Prophylaxis enoxaparin Opiate Usage / Scheduled Bowel Regimen Ordered no/prn Plt/SCr for Heparin / Enoxaparin plt 197 SCr 0.93 INR for Warfarin n/a H/H stable, WBC/Bands h/h 13.8/41.1 wbc 6.53 Antibiotic appropriateness ceftriaxone (day 1) Cultures and Sensitivities rapid flu- negative Surgical ABX d/c within 24 hr n/a DM control / Insulin Dosing BG 136 none Heart Failure (Check EF%) (ANTHONY's, B-Block, Diuretics) lisinopril, metoprolol, triamterene/HCTZ IV to PO Switch n/a Home Meds Reviewed multiple anticholinergic meds- tiotropium, ipratropium multiple sympathomimetics- albuterol, epinephrine, olodaterol Home Meds Not Ordered epinephrine (PRN) and tiotropium/olodaterol Comments
[2018-09-30] MEDS: Albuterol/Ipratropium 3 ML UPD VIAL UPD ×2 (12:46→18:15)
--- NOTE | 2018-09-30 15:25 | CHAPLAIN ---
Thanh invited me to sit and talk with her. She shared some personal history, telling me about moving to [place] from [place] with a boyfriend and she stayed after their relationship ended. She has had other relationships, but said she is better off by herself. Her sons moved in with her so she could afford to stay in her house. Thanh was raised [employer]oroastrian, but does not attend [employer] now. She asked me to pray for her later.
--- NOTE | 2018-09-30 17:07 | PDOC.CMIN ---
Care Management Initial Assess REASON FOR HOSPITALIZATION:: COPD Exacerbation PAST MEDICAL HISTORY/PAST SURGICAL HISTORY:: Anxiety, Petit mal epilepsy, lupus, hypothyroidism, hymenoptera allergy, esential hypertension, ADHD, NSTEMI, COPD, ankle surgery PREVIOUS FUNCTIONAL STATUS/SOCIAL/FAMILY SUPPORTS:: Thanh is retired and divorces. She resides in [place], her son, Apollo resides with her. She also has a daughter who resides in [facility] and two other sons. She is normally independent with ADLs in the community. CURRENT FUNCTIONAL STATUS:: Thanh was lying on her side, sleeping with her lights off when CM attempted to meet with her. Has patient been provided with information about the portal?: Yes Did the patient sign up for the portal?: No CODE STATUS:: Full Code INSURANCE COVERAGE / FINANCIAL ISSUES:: Medicaid, Medicare CURRENT HOME/COMMUNITY SERVICES/EQUIPMENT:: Combivent inhaler. PRIMARY CARE PHYSICIAN:: John Diaz MD. POTENTIAL DISCHARGE NEEDS:: Follow up appointment, discussion around community based supports; pulmonary rehab. PATIENT/FAMILY EDUCATION NEEDS:: Review discharge instructions, discuss Ask Me Three. ANTICIPATED BARRIERS TO DISCHARGE:: None identified. TRANSPORTATION:: Via private vehicle with family. PLAN:: Thanh will return home when ready per MD. She will follow up with her PCP and plan of care as prescribed. She will trnasport home via private vehicle with her son.
[2018-09-30] MEDS: Gabapentin 300 MG CAP 600 MG PO (18:17)
[2018-09-30] MEDS: methylPREDNISolone SUCC 125 MG VIAL 60 MG IVP (20:34)
[2018-09-30] MEDS: Atorvastatin 40 MG TAB 80 MG PO (20:34)
[2018-09-30] MEDS: LORazepam 1 MG TAB PO (22:55)
[2018-10-01] VITALS (7 sets, daily range): BP systolic 119–179; BP diastolic 40–93; PULSE 56–73; RESP 18–21; TEMP 36.5–36.8; O2SAT 89–98
[2018-10-01] MEDS: methylPREDNISolone SUCC 125 MG VIAL 60 MG IVP ×3 (03:55→19:47)
[2018-10-01] MEDS: Normal Saline Flush 10 ML SYR IVP ×4 (03:55→19:47)
[2018-10-01] MEDS: Levothyroxine 50 MCG TAB PO (06:26)
[2018-10-01 07:15] LABS: Abs Immature Grans 0.02 k/cumm (0.0-0.09); Absolute Lymphocyte Count 0.52 k/cumm (1.2-3.4); HGB 12.9 g/dL (12.0-15.5); Immature Grans % 0.2; Lymphocytes % 5.5; Mean Corp. HGB Concentration 33.1 g/dL (32.0-36.0); Mean Corpuscular Hemoglobin 29.5 pg (27.0-33.0); Mean Platelet Volume 11.6 fL (8.0-11.0); Monocytes % 5.3; Platelet Count 224 x1000/uL (130-400); RBC 4.38 m/cumm (4.00-5.20); RBC Distribution Width 12.9 % (11.7-14.6); White Blood Cell Count 9.52 k/cumm (4.4-10.8)
[2018-10-01 07:21] LABS: Absolute Neutrophil Count 8.47 k/cumm (1.2-6.7)
[2018-10-01 07:26] LABS: Anion Gap 9.9 mmol/L (3-11); BUN 26 mg/dL (7-18); CO2 28.1 mmol/L (21.0-32.0); CREATININE 1.05 mg/dL (0.55-1.02); Calcium 8.7 mg/dL (8.5-10.1); Chloride 96 mmol/L (98-107); Estimated GFR 51.96 (mL/min/1.73m2); Glucose 154 mg/dL (70-100); Magnesium 2.6 mg/dL (1.8-2.4); Potassium 3.9 mmol/L (3.5-5.1); Sodium 134 mmol/L (136-145)
[2018-10-01] MEDS: Lisinopril 5 MG TAB 2.5 MG PO (08:12)
[2018-10-01] MEDS: Gabapentin 300 MG CAP PO (08:12)
[2018-10-01] MEDS: Metoprolol CR 25 MG TABCR PO (08:13)
[2018-10-01] MEDS: Hydroxychloroquine 200 MG TAB PO (08:13)
[2018-10-01] MEDS: Citalopram 20 MG TAB 40 MG PO (08:13)
[2018-10-01] MEDS: Aspirin E.C. 81 MG TABEC PO (08:13)
[2018-10-01] MEDS: Magnesium Oxide 400 MG TAB PO ×2 (08:13→19:46)
[2018-10-01] MEDS: Pantoprazole 40 MG VIAL IVP (08:14)
[2018-10-01] MEDS: Enoxaparin 40 MG/0.4 ML SYR SC (08:15)
[2018-10-01] MEDS: Triamterene 37.5/HCTZ 25 CAP PO (08:27)
--- NOTE | 2018-10-01 11:45 | PDOC.CMPRO ---
Care Management Progress Note S/O: Thanh was sitting up in her chair, much more alert and fully engaged with this engineering writer, telling stories about her sons and her life. She reported having rescue inhalers and OP/PT at [facility] but reported no other equipment. She was open to discussing home O2 and the possibility of Pulmonary Rehab if deemed appropriate. She spoke in length about the support of her three sons who reside in her home and help with ADLs and financial considerations. CM will continue to follow. A: 67 year old female admitted to [facility] 09/30/18 for COPD Exacerbation P: Thahn will return home when ready per MD. She will follow up with her PCP and plan of care as prescribed. Undetermined if she will qualify for Pulmonary Rehab and Home O2; TBD by RT. CM will continue to follow. Thanh will transport home via private
--- NOTE | 2018-10-01 15:16 | PGE_ITS ---
Date of Service Date of service: 10/01/18 Time of Service: 15:14 Assessment and Plan (1) COPD exacerbation: Current visit: Yes Status: Acute Severe by PFTs in 2015. Currently with acute exacerbation. Continue IV steroids, and given change in cough also on antibiotics. Continue nebs. (2) CAD (coronary artery disease), [place] coronary artery: Current visit: Yes Status: Chronic Asymptomatic, with negative initial troponin. Continue ASA, statin, and BB. Patient also on ANTHONY-I as well as Triamterene/HCTZ for blood pressure control. (3) Lupus (systemic lupus erythematosus): Current visit: No Status: Chronic Discoid Lupus Erythematosus. Currently on Hydroxychloroquine. (4) Petit mal epilepsy: Current visit: No Status: Chronic Continue Gabapentin. (5) Hypothyroidism: Current visit: No Status: Chronic Continue replacement therapy. (6) DVT prophylaxis: Current visit: Yes Status: Acute SC Lovenox. Also on PPI for GI Prophylaxis. Subjective Interval history since last seen: 67 year old woman with a prior history of COPD, admitted from [facility] Emergency Department with a diagnosis of acute COPD exacerbation. Mrs. Gonzalez has a prior history of COPD and prior tobacco use. She also carries the diagnosis of Discoid lupus, CAD, prior seizures, hypothyroidism, ADHD, and anxiety. The patient presented to the ED via EMS with complaints of increasing dyspnea and URI type symptoms approximately 2 weeks prior to admission, with symptoms that included subjective low grade fevers, nasal congestion, change in cough, and sore throat. She had increased her use of inhalers and nebulizers without effect. In the ED she was found to be hypoxic, but without a fever, leukocytosis, or evidence of pneumonia by CXR. She was referred for admission. This morning the patient reports improvement overall. No overnight events reported. Remains afebrile. Exam Narrative Exam Narrative: General: Patient appears comfortable, AAOX3, NAD Neck: Supple CV: Regular, nontachycardic, S1S2, No rubs, murmurs, or gallops. Pulmonary: Significantly diminished breathsounds throughout but with improved air entry. Minimal wheezing. Abdomen: + Bowel Sounds, soft, nontender, nondistended Vascular: No lower extremity edema Psych: Normal mood and affect. Objective Objective Clinical Data: Abnormal lab results 10/01/18 10/01/18 Range/Units 06:30 06:30 MPV 11.6 H (8.0-11.0) fL Absolute Neutrophils 8.47 H (1.2-6.7) k/cumm Absolute Lymphocytes 0.52 L (1.2-3.4) k/cumm Sodium 134 L (136-145) mmol/L Chloride 96 L (98-107) mmol/L BUN 26 H D (7-18) mg/dL Creatinine 1.05 H (0.55-1.02) mg/dL Glucose 154 H (70-100) mg/dL Magnesium 2.6 H (1.8-2.4) mg/dL Vital Signs Temperature 36.7 C 10/01/18 11:25 Temperature Source Tympanic 10/01/18 11:25 Pulse 60 10/01/18 11:25 Pulse Rhythm Regular 10/01/18 09:14 Respiratory Rate 18 10/01/18 11:25 Respiratory Effort 10/01/18 09:14 Respiratory Depth Shallow 10/01/18 09:14 Respiratory Pattern Normal 09/30/18 20:36 Blood Pressure 124/40 L 10/01/18 11:25 Blood Pressure Mean 114 09/30/18 04:46 Pulse Oximetry 96 10/01/18 11:25 Oxygen Delivery Method Nasal Cannula 10/01/18 11:25 Oxygen Flow Rate 1.5 10/01/18 11:25 Pain Level 0 09/30/18 05:28 Intake & Output 09/30/18 10/01/18 10/01/18 23:59 11:59 23:59 Intake Total 790 / 903.333 890 / 1680 790 / 1680 Balance 790 / 903.333 890 / 1680 790 / 1680 Weight 71.1 kg Intake: IV 50 / 103.333 Oral 740 / 800 890 / 1680 790 / 1680 Other: Urine Appearance Clear Clear Stool Size Moderate Stool Characteristics Soft Liquid Brown Voiding Methods Toilet Laboratory Results WBC 9.52 k/cumm (4.4-10.8) D 10/01/18 06:30 RBC 4.38 m/cumm (4.00-5.20) 10/01/18 06:30 Hgb 12.9 g/dL (12.0-15.5) 10/01/18 06:30 Hct 39.0 % (36.0-46.0) 10/01/18 06:30 MCV 89.0 fL (80-95) 10/01/18 06:30 MCH 29.5 pg (27.0-33.0) 10/01/18 06:30 MCHC 33.1 g/dL (32.0-36.0) 10/01/18 06:30 RDW 12.9 % (11.7-14.6) 10/01/18 06:30 Plt Count 224 x1000/uL (130-400) 10/01/18 06:30 MPV 11.6 fL (8.0-11.0) H 10/01/18 06:30 Immature Gran % 0.2 10/01/18 06:30 Neutrophils % 89.0 10/01/18 06:30 Lymphocytes % 5.5 10/01/18 06:30 Monocytes % 5.3 10/01/18 06:30 Eosinophils % 0.0 10/01/18 06:30 Basophils % 0.0 10/01/18 06:30 Absolute Neutrophils 8.47 k/cumm (1.2-6.7) H 10/01/18 06:30 Absolute Lymphocytes 0.52 k/cumm (1.2-3.4) L 10/01/18 06:30 Absolute Monocytes 0.50 k/cumm (0.11-0.7) 10/01/18 06:30 Absolute Eosinophils 0.00 k/cumm (0.0-0.7) 10/01/18 06:30 Absolute Basophils 0.00 k/cumm (0.0-0.2) 10/01/18 06:30 Sodium 134 mmol/L (136-145) L 10/01/18 06:30 Potassium 3.9 mmol/L (3.5-5.1) 10/01/18 06:30 Chloride 96 mmol/L (98-107) L 10/01/18 06:30 Carbon Dioxide 28.1 mmol/L (21.0-32.0) 10/01/18 06:30 Anion Gap 9.9 mmol/L (3-11) 10/01/18 06:30 BUN 26 mg/dL (7-18) H D 10/01/18 06:30 Creatinine 1.05 mg/dL (0.55-1.02) H 10/01/18 06:30 Estimated GFR/1.73 m2 51.96 (mL/min/1.73m2) 10/01/18 06:30 Glucose 154 mg/dL (70-100) H 10/01/18 06:30 Calcium 8.7 mg/dL (8.5-10.1) 10/01/18 06:30 Magnesium 2.6 mg/dL (1.8-2.4) H 10/01/18 06:30 Total Bilirubin 0.4 mg/dL (0.2-1.0) 09/30/18 05:50 AST 25 U/L (15-37) 09/30/18 05:50 ALT 20 U/L (12-78) 09/30/18 05:50 Alkaline Phosphatase 63 U/L (46-116) 09/30/18 05:50 Troponin I 0.02 ng/mL (0.00-0.06) 09/30/18 09:00 Total Protein 7.1 g/dL (6.4-8.2) 09/30/18 05:50 Albumin 3.5 g/dL (3.4-5.0) 09/30/18 05:50 TSH 0.91 uIU/mL (0.358-3.74) 09/30/18 05:50
--- NOTE | 2018-10-01 17:05 | CMPROGNOTE_ITS ---
Care Management Progress Note S/O: Thanh was sitting up in her chair, much more alert and fully engaged with this service writer, telling stories about her sons and her life. She reported having rescue inhalers and OP/PT at [facility] but reported no other equipment. She was open to discussing home O2 and the possibility of Pulmonary Rehab if deemed appropriate. She spoke in length about the support of her three sons who reside in her home and help with ADLs and financial considerations. CM will continue to follow. A: 67 year old female admitted to [facility] 09/30/18 for COPD Exacerbation P: Thanh will return home when ready per MD. She will follow up with her PCP and plan of care as prescribed. Undetermined if she will qualify for Pulmonary R ehab and Home O2; TBD by RT. CM will continue to follow. Thanh will transport home via private
[2018-10-01] MEDS: Gabapentin 300 MG CAP 600 MG PO (17:25)
[2018-10-01] MEDS: Atorvastatin 40 MG TAB 80 MG PO (19:46)
[2018-10-01] MEDS: LORazepam 1 MG TAB PO (21:07)
[2018-10-02] VITALS (12 sets, daily range): BP systolic 122–165; BP diastolic 62–77; PULSE 59–89; RESP 4–24; TEMP 36.2–37; O2SAT 92–97
[2018-10-02] MEDS: Normal Saline Flush 10 ML SYR IVP ×3 (04:11→19:47)
[2018-10-02] MEDS: Albuterol/Ipratropium 3 ML UPD VIAL UPD ×3 (04:12→19:50)
[2018-10-02] MEDS: methylPREDNISolone SUCC 125 MG VIAL 60 MG IVP ×3 (04:12→19:46)
[2018-10-02] MEDS: Levothyroxine 50 MCG TAB PO (05:53)
[2018-10-02 07:29] LABS: Anion Gap 10.2 mmol/L (3-11); BUN 31 mg/dL (7-18); CO2 26.8 mmol/L (21.0-32.0); CREATININE 1.31 mg/dL (0.55-1.02); Calcium 8.3 mg/dL (8.5-10.1); Chloride 99 mmol/L (98-107); Estimated GFR 40.26 (mL/min/1.73m2); Glucose 160 mg/dL (70-100); Magnesium 2.5 mg/dL (1.8-2.4); Potassium 3.8 mmol/L (3.5-5.1); Sodium 136 mmol/L (136-145)
[2018-10-02 07:36] LABS: Abs Immature Grans 0.03 k/cumm (0.0-0.09); Absolute Basophil Count 0.01 k/cumm (0.0-0.2); Absolute Lymphocyte Count 0.74 k/cumm (1.2-3.4); Absolute Neutrophil Count 11.26 k/cumm (1.2-6.7); Basophils % 0.1; HGB 13.1 g/dL (12.0-15.5); Immature Grans % 0.2; Lymphocytes % 5.8; Mean Corp. HGB Concentration 32.8 g/dL (32.0-36.0); Mean Corpuscular Hemoglobin 29.4 pg (27.0-33.0); Mean Corpuscular Volume 89.9 fL (80-95); Mean Platelet Volume 12.1 fL (8.0-11.0); Monocytes % 5.5; Neutrophils % 88.4; Platelet Count 250 x1000/uL (130-400); RBC 4.45 m/cumm (4.00-5.20); RBC Distribution Width 13.1 % (11.7-14.6); White Blood Cell Count 12.74 k/cumm (4.4-10.8)
[2018-10-02] MEDS: Pantoprazole 40 MG VIAL IVP (09:02)
[2018-10-02] MEDS: Hydroxychloroquine 200 MG TAB PO (09:03)
[2018-10-02] MEDS: Enoxaparin 40 MG/0.4 ML SYR SC (09:03)
[2018-10-02] MEDS: Aspirin E.C. 81 MG TABEC PO (09:03)
[2018-10-02] MEDS: Lisinopril 5 MG TAB 2.5 MG PO (09:03)
[2018-10-02] MEDS: Citalopram 20 MG TAB 40 MG PO (09:05)
[2018-10-02] MEDS: Gabapentin 300 MG CAP PO (09:05)
[2018-10-02] MEDS: Triamterene 37.5/HCTZ 25 CAP PO (09:05)
[2018-10-02] MEDS: Metoprolol CR 25 MG TABCR PO (09:06)
--- NOTE | 2018-10-02 11:22 | PDOC.CMPRO ---
Care Management Progress Note S/O: Thanh continues to make gains towards being medically ready for discharge, per MD. She is requiring less O2 and ambulating in the hallways. Now anticipating no additional services for discharge. CM will continue to follow. A: 67 year old female admitted to [facility] 09/30/18 for COPD Exacerbation P: Thanh will return home when ready per MD. She will follow up with her PCP and plan of care as prescribed. CM will continue to follow; no additional services anticipated at this time. Thanh will transport home via private vehicle with one of her children.
[2018-10-02] MEDS: Normal Saline 1,000 ML 100 ML IV (12:14)
--- NOTE | 2018-10-02 12:54 | CMPROGNOTE_ITS ---
Care Management Progress Note S/O: Thanh continues to make gains towards being medically ready for discharge, per MD. She is requiring less O2 and ambulating in the hallways. Now anticipating no additional services for discharge. CM will continue to follow. A: 67 year old female admitted to [facility] 09/30/18 for COPD Exacerbation P: Thanh will return home when ready per MD. She will follow up with her PCP and plan of care as prescribed. CM will continue to follow; no additional services anticipated at this time. Thanh will transport home via private ve hicle with one of her children.
--- NOTE | 2018-10-02 15:09 | CHAPLAIN ---
Thanh was resting in bed when I visited. She is frustrated that she is not doing as well as I should be by now. Thanh was raised [employer] and her paige is important to her. She no longer attends [employer], but feels connected to God. She wanted to talk about concepts of heaven and hell, as well as some of her personal history and how she felt God might review her life, her decisions and some of her behavior. Thanh easily engages in conversation. She says her sons check in on her regularly and are a strong support for her.
[2018-10-02] MEDS: Gabapentin 300 MG CAP 600 MG PO (17:11)
--- NOTE | 2018-10-02 19:16 | PGE_ITS ---
Date of Service Date of service: 10/02/18 Time of Service: 19:09 Assessment and Plan (1) COPD exacerbation: Current visit: Yes Status: Acute Severe by PFTs in 2015. Currently with acute exacerbation. Continue IV steroids, and given change in cough also on antibiotics. Continue nebs. (2) CAD (coronary artery disease), [place] coronary artery: Current visit: Yes Status: Chronic Asymptomatic, with negative troponins. Continue ASA, statin, and BB. Patient also on ANTHONY-I as well as Triamterene/HCTZ for blood pressure control. (3) Lupus (systemic lupus erythematosus): Current visit: No Status: Chronic Discoid Lupus Erythematosus. Currently on Hydroxychloroquine. (4) Petit mal epilepsy: Current visit: No Status: Chronic Continue Gabapentin. (5) Hypothyroidism: Current visit: No Status: Chronic Continue replacement therapy. (6) DENISE (acute kidney injury): Current visit: Yes Status: Acute Likely secondary to dehydration by labs and exam - Initiate on IVFs and monitor daily. (7) DVT prophylaxis: Current visit: Yes Status: Acute SC Lovenox. Also on PPI for GI Prophylaxis. Subjective Interval history since last seen: 67 year old woman with a prior history of COPD, admitted from [facility] Emergency Department with a diagnosis of acute COPD exacerbation. Mrs. Gonzalez has a prior history of COPD and prior tobacco use. She also carries the diagnosis of Discoid lupus, CAD, prior seizures, hypothyroidism, ADHD, and anxiety. The patient presented to the ED via EMS with complaints of increasing dyspnea and URI type symptoms approximately 2 weeks prior to admission, with symptoms that included subjective low grade fevers, nasal congestion, change in cough, and sore throat. She had increased her use of inhalers and nebulizers without effect. In the ED she was found to be hypoxic, but without a fever, leukocytosis, or evidence of pneumonia by CXR. She was referred for admission. This morning the patient reports improvement overall, but not feeling as well as yesterday. Has been ambulating with assistance and supplemental oxygen. Mild elevation in WBC on steroid therapy. No overnight events reported. Remains afebrile. Exam Narrative Exam Narrative: General: Patient appears comfortable, AAOX3, NAD HEENT: Dry Mucous Membrane Neck: Supple CV: Regular, nontachycardic, S1S2, No rubs, murmurs, or gallops. Pulmonary: Significantly diminished breathsounds throughout but with improved air entry. Minimal to no wheezing. Overall improved. Abdomen: + Bowel Sounds, soft, nontender, nondistended Vascular: No lower extremity edema Psych: Normal mood and affect. Objective Objective Clinical Data: Abnormal lab results 10/02/18 10/02/18 Range/Units 06:40 06:40 WBC 12.74 H D (4.4-10.8) k/cumm MPV 12.1 H (8.0-11.0) fL Absolute Neutrophils 11.26 H (1.2-6.7) k/cumm Absolute Lymphocytes 0.74 L (1.2-3.4) k/cumm BUN 31 H (7-18) mg/dL Creatinine 1.31 H (0.55-1.02) mg/dL Glucose 160 H (70-100) mg/dL Calcium 8.3 L (8.5-10.1) mg/dL Magnesium 2.5 H (1.8-2.4) mg/dL Vital Signs Temperature 36.3 C L 10/02/18 16:33 Temperature Source Tympanic 10/02/18 16:33 Pulse 68 10/02/18 16:33 Pulse Rhythm Regular 10/02/18 14:31 Respiratory Rate 20 10/02/18 16:33 Respiratory Effort 10/02/18 14:31 Respiratory Depth Shallow 10/02/18 14:31 Respiratory Pattern Normal 10/02/18 14:31 Blood Pressure 145/75 H 10/02/18 16:33 Blood Pressure Mean 114 09/30/18 04:46 Pulse Oximetry 92 L 10/02/18 16:33 Oxygen Delivery Method Room Air 10/02/18 16:33 Oxygen Flow Rate 0 10/02/18 16:33 Pain Level 0 09/30/18 05:28 Comment 10/02/18 04:20 Intake & Output 10/01/18 10/02/18 10/02/18 23:59 11:59 23:59 Intake Total 1029 1000.000 / 1720.000 720 / 1720.000 Balance 1029 1000.000 / 1720.000 720 / 1720.000 Weight 69.3 kg Intake: IV 60.000 / 60.000 Oral 1030 / 1920 940 / 1660 720 / 1660 Other: Urine Appearance Clear Clear Comment pt voids in toilet and flushes Voiding Methods Toilet Toilet Laboratory Results WBC 12.74 k/cumm (4.4-10.8) H D 10/02/18 06:40 RBC 4.45 m/cumm (4.00-5.20) 10/02/18 06:40 Hgb 13.1 g/dL (12.0-15.5) 10/02/18 06:40 Hct 40.0 % (36.0-46.0) 10/02/18 06:40 MCV 89.9 fL (80-95) 10/02/18 06:40 MCH 29.4 pg (27.0-33.0) 10/02/18 06:40 MCHC 32.8 g/dL (32.0-36.0) 10/02/18 06:40 RDW 13.1 % (11.7-14.6) 10/02/18 06:40 Plt Count 250 x1000/uL (130-400) 10/02/18 06:40 MPV 12.1 fL (8.0-11.0) H 10/02/18 06:40 Immature Gran % 0.2 10/02/18 06:40 Neutrophils % 88.4 10/02/18 06:40 Lymphocytes % 5.8 10/02/18 06:40 Monocytes % 5.5 10/02/18 06:40 Eosinophils % 0.0 10/02/18 06:40 Basophils % 0.1 10/02/18 06:40 Absolute Neutrophils 11.26 k/cumm (1.2-6.7) H 10/02/18 06:40 Absolute Lymphocytes 0.74 k/cumm (1.2-3.4) L 10/02/18 06:40 Absolute Monocytes 0.70 k/cumm (0.11-0.7) 10/02/18 06:40 Absolute Eosinophils 0.00 k/cumm (0.0-0.7) 10/02/18 06:40 Absolute Basophils 0.01 k/cumm (0.0-0.2) 10/02/18 06:40 Sodium 136 mmol/L (136-145) 10/02/18 06:40 Potassium 3.8 mmol/L (3.5-5.1) 10/02/18 06:40 Chloride 99 mmol/L (98-107) 10/02/18 06:40 Carbon Dioxide 26.8 mmol/L (21.0-32.0) 10/02/18 06:40 Anion Gap 10.2 mmol/L (3-11) 10/02/18 06:40 BUN 31 mg/dL (7-18) H 10/02/18 06:40 Creatinine 1.31 mg/dL (0.55-1.02) H 10/02/18 06:40 Estimated GFR/1.73 m2 40.26 (mL/min/1.73m2) 10/02/18 06:40 Glucose 160 mg/dL (70-100) H 10/02/18 06:40 Calcium 8.3 mg/dL (8.5-10.1) L 10/02/18 06:40 Magnesium 2.5 mg/dL (1.8-2.4) H 10/02/18 06:40 Total Bilirubin 0.4 mg/dL (0.2-1.0) 09/30/18 05:50 AST 25 U/L (15-37) 09/30/18 05:50 ALT 20 U/L (12-78) 09/30/18 05:50 Alkaline Phosphatase 63 U/L (46-116) 09/30/18 05:50 Troponin I 0.02 ng/mL (0.00-0.06) 09/30/18 09:00 Total Protein 7.1 g/dL (6.4-8.2) 09/30/18 05:50 Albumin 3.5 g/dL (3.4-5.0) 09/30/18 05:50 TSH 0.91 uIU/mL (0.358-3.74) 09/30/18 05:50
[2018-10-02] MEDS: Atorvastatin 40 MG TAB 80 MG PO (19:47)
[2018-10-02] MEDS: LORazepam 1 MG TAB PO (19:47)
[2018-10-03] VITALS (14 sets, daily range): BP systolic 115–164; BP diastolic 63–78; PULSE 62–72; RESP 2–20; TEMP 36.2–37.1; O2SAT 91–97
[2018-10-03] MEDS: Normal Saline Flush 10 ML SYR IVP ×5 (03:42→20:38)
[2018-10-03] MEDS: methylPREDNISolone SUCC 125 MG VIAL 60 MG IVP ×3 (03:42→20:37)
[2018-10-03] MEDS: Albuterol/Ipratropium 3 ML UPD VIAL UPD ×3 (03:42→18:29)
[2018-10-03] MEDS: Levothyroxine 50 MCG TAB PO (06:04)
[2018-10-03 07:39] LABS: HCT 39.3 % (36.0-46.0); HGB 12.6 g/dL (12.0-15.5); Mean Corp. HGB Concentration 32.1 g/dL (32.0-36.0); Mean Corpuscular Volume 90.6 fL (80-95); RBC 4.34 m/cumm (4.00-5.20); White Blood Cell Count 11.03 k/cumm (4.4-10.8)
[2018-10-03 07:48] LABS: Anion Gap 7.6 mmol/L (3-11); BUN 25 mg/dL (7-18); CO2 28.4 mmol/L (21.0-32.0); CREATININE 1.01 mg/dL (0.55-1.02); Calcium 8.7 mg/dL (8.5-10.1); Chloride 102 mmol/L (98-107); Estimated GFR 54.35 (mL/min/1.73m2); Glucose 133 mg/dL (70-100); Magnesium 2.3 mg/dL (1.8-2.4); Potassium 4.2 mmol/L (3.5-5.1); Sodium 138 mmol/L (136-145)
[2018-10-03] MEDS: Enoxaparin 40 MG/0.4 ML SYR SC (08:06)
[2018-10-03] MEDS: Aspirin E.C. 81 MG TABEC PO (08:07)
[2018-10-03] MEDS: Citalopram 20 MG TAB 40 MG PO (08:07)
[2018-10-03] MEDS: Gabapentin 300 MG CAP PO (08:07)
[2018-10-03] MEDS: Hydroxychloroquine 200 MG TAB PO (08:07)
[2018-10-03] MEDS: Triamterene 37.5/HCTZ 25 CAP PO (08:07)
[2018-10-03] MEDS: Lisinopril 5 MG TAB 2.5 MG PO (08:07)
[2018-10-03] MEDS: Metoprolol CR 25 MG TABCR PO (08:07)
[2018-10-03] MEDS: Pantoprazole 40 MG VIAL IVP (08:07)
[2018-10-03 08:20] LABS: Absolute Lymphocyte Count 0.66 k/cumm (1.2-3.4); Absolute Neutrophil Count 9.93 k/cumm (1.2-6.7); Atypical Lymphocytes % 2
[2018-10-03 08:21] LABS: Absolute Monocyte Count 0.44 k/cumm (0.11-0.7); Diff Comment Manual Differential; Platelet Count 232 x1000/uL (130-400); RBC Morphology Normal
--- NOTE | 2018-10-03 11:25 | PDOC.CMPRO ---
Care Management Progress Note S/O: Thanh was sitting up in her chair when CM met with her. She reported feeling down today and likened the feeling to still not feeling better. CM spoke with Thanh about pulmonary rehab and overnight oximetry; Thanh shared that she was thankful to be staying another night and throughout the conversation seemed to brighten and smile. CM will continue to follow. A: 67 year old female admitted to [facility] 09/30/18 for COPD Exacerbation P: Thanh will return home when ready per MD. She will follow up with her PCP and plan of care as prescribed. CM will continue to follow; anticipate Thanh will follow up with Pulmonary Rehab and sign up for RCT transport to ensure she can attend her appointments. Thanh will transport home via private vehicle with one of her children.
--- NOTE | 2018-10-03 11:28 | CMPROGNOTE_ITS ---
Care Management Progress Note S/O: Thanh was sitting up in her chair when CM met with her. She reported feeling down today and likened the feeling to still not feeling better. CM spoke with Thanh about pulmonary rehab and overnight oximetry; Thanh shared that she was thankful to be staying another night and throughout the conversation seemed to brighten and smile. CM will continue to follow. A: 67 year old female admitted to [facility] 09/30/18 for COPD Exacerbation P: Thanh will return home when ready per MD. She will follow up with her PCP and plan of care as prescribed. CM will continue to follow; anticipate Thanh will follow up with Pulmonary Rehab and sign up for RCT transport to ensure she can attend her appointments. Thanh will transport home via private vehicle with one of her children.
[2018-10-03] MEDS: Albuterol 2.5 MG/3 ML INH SOLN VIAL UPD ×3 (11:49→23:08)
[2018-10-03] MEDS: Normal Saline 1,000 ML 100 ML IV (14:06)
[2018-10-03] MEDS: Gabapentin 300 MG CAP 600 MG PO (18:29)
--- NOTE | 2018-10-03 19:14 | RESPIRATORY ---
Pt. did not feel comfortable going to sleep without oxygen tonight so the overnight oximetry test was held.
--- NOTE | 2018-10-03 19:40 | W.PM.PROGNOT ---
Date of Service Date of service: 10/03/18 Time of Service: 19:40 Assessment and Plan (1) COPD exacerbation: Current visit: Yes Status: Acute Severe by PFTs in 2015. Currently with acute exacerbation. Continue IV steroids, and given change in cough also on antibiotics with day #3 of Ceftriaxone. Continue nebs. Patient with overnight hypoxia - will obtain nocturnal oximetry. (2) CAD (coronary artery disease), [place] coronary artery: Current visit: Yes Status: Chronic Asymptomatic, with negative troponins. Continue ASA, statin, and BB. Patient also on ANTHONY-I as well as Triamterene/HCTZ for blood pressure control. (3) Lupus (systemic lupus erythematosus): Current visit: No Status: Chronic Discoid Lupus Erythematosus. Currently on Hydroxychloroquine. (4) Petit mal epilepsy: Current visit: No Status: Chronic Continue Gabapentin. (5) Hypothyroidism: Current visit: No Status: Chronic Continue replacement therapy. (6) DENISE (acute kidney injury): Current visit: Yes Status: Acute Likely secondary to dehydration by labs and exam - Initiate on IVFs and monitor daily. (7) DVT prophylaxis: Current visit: Yes Status: Acute SC Lovenox. Also on PPI for GI Prophylaxis. Subjective Interval history since last seen: 67 year old woman with a prior history of COPD, admitted from [facility] Emergency Department with a diagnosis of acute COPD exacerbation. Mrs. Gonzalez has a past medical history significant for COPD and prior tobacco use. She is also diagnosed with Discoid lupus, CAD, prior seizures, hypothyroidism, ADHD, and anxiety. The patient presented to the ED via EMS with complaints of increasing dyspnea and URI type symptoms approximately 2 weeks prior to admission. She reported subjective low grade fevers, nasal congestion, change in cough, and sore throat. She had increased her use of inhalers and nebulizers without effect. In the ED she was found to be hypoxic, but without a fever, leukocytosis, or evidence of pneumonia by CXR. She was referred for admission. This morning the patient reports improvement overall, but still not feeling well. Has been ambulating with assistance and supplemental oxygen. Mild elevation in WBC on steroid therapy, improved. No overnight events reported. Remains afebrile. Exam Narrative Exam Narrative: General: Patient appears comfortable, AAOX3, NAD HEENT: Dry Mucous Membrane Neck: Supple CV: Regular, nontachycardic, S1S2, No rubs, murmurs, or gallops. Pulmonary: Significantly diminished breathsounds throughout but with improved air entry. Minimal to no wheezing. Overall improved. Abdomen: + Bowel Sounds, soft, nontender, nondistended Vascular: No lower extremity edema Psych: Normal mood and affect. Objective Objective Clinical Data: Abnormal lab results 10/03/18 10/03/18 Range/Units 06:30 06:30 WBC 11.03 H (4.4-10.8) k/cumm MPV 12.0 H (8.0-11.0) fL Absolute Neutrophils 9.93 H (1.2-6.7) k/cumm Absolute Lymphocytes 0.66 L (1.2-3.4) k/cumm BUN 25 H (7-18) mg/dL Glucose 133 H (70-100) mg/dL Vital Signs Temperature 36.5 C 10/03/18 19:01 Temperature Source Tympanic 10/03/18 19:01 Pulse 65 10/03/18 19:01 Pulse Rhythm Regular 10/03/18 18:42 Respiratory Rate 18 10/03/18 19:01 Respiratory Effort Incrsd Work of Breathing 10/03/18 18:42 Respiratory Depth Normal 10/03/18 18:42 Respiratory Pattern Normal 10/03/18 18:42 Blood Pressure 144/77 H 10/03/18 19:01 Blood Pressure Mean 114 09/30/18 04:46 Pulse Oximetry 97 10/03/18 19:01 Oxygen Delivery Method Nasal Cannula 10/03/18 19:01 Oxygen Flow Rate 2 10/03/18 19:01 Pain Level 0 10/03/18 07:35 Comment 10/02/18 04:20 Intake & Output 10/02/18 10/03/18 10/03/18 23:59 11:59 23:59 Intake Total 1730 / 2730.000 840 / 1360 520 / 1360 Balance 1730 / 2730.000 840 / 1360 520 / 1360 Weight 68.4 kg Intake: IV 1010 / 1070.000 80 / 120 40 / 120 Oral 720 / 1660 760 / 1240 480 / 1240 Other: Urine Appearance Clear Comment pt voiding independently in the bathroom Voiding Methods Toilet Toilet Laboratory Results WBC 11.03 k/cumm (4.4-10.8) H 10/03/18 06:30 RBC 4.34 m/cumm (4.00-5.20) 10/03/18 06:30 Hgb 12.6 g/dL (12.0-15.5) 10/03/18 06:30 Hct 39.3 % (36.0-46.0) 10/03/18 06:30 MCV 90.6 fL (80-95) 10/03/18 06:30 MCH 29.0 pg (27.0-33.0) 10/03/18 06:30 MCHC 32.1 g/dL (32.0-36.0) 10/03/18 06:30 RDW 13.0 % (11.7-14.6) 10/03/18 06:30 Plt Count 232 x1000/uL (130-400) 10/03/18 06:30 MPV 12.0 fL (8.0-11.0) H 10/03/18 06:30 Immature Gran % 0.0 10/03/18 06:30 Neutrophils % 90.0 10/03/18 06:30 Lymphocytes % 4.0 10/03/18 06:30 Atypical Lymphs % 2 10/03/18 06:30 Monocytes % 4.0 10/03/18 06:30 Eosinophils % 0.0 10/03/18 06:30 Basophils % 0.0 10/03/18 06:30 Absolute Neutrophils 9.93 k/cumm (1.2-6.7) H 10/03/18 06:30 Absolute Lymphocytes 0.66 k/cumm (1.2-3.4) L 10/03/18 06:30 Absolute Monocytes 0.44 k/cumm (0.11-0.7) 10/03/18 06:30 Absolute Eosinophils 0.00 k/cumm (0.0-0.7) 10/03/18 06:30 Absolute Basophils 0.00 k/cumm (0.0-0.2) 10/03/18 06:30 Differential Comment Manual differential 10/03/18 06:30 RBC Morphology Normal 10/03/18 06:30 Sodium 138 mmol/L (136-145) 10/03/18 06:30 Potassium 4.2 mmol/L (3.5-5.1) 10/03/18 06:30 Chloride 102 mmol/L (98-107) 10/03/18 06:30 Carbon Dioxide 28.4 mmol/L (21.0-32.0) 10/03/18 06:30 Anion Gap 7.6 mmol/L (3-11) 10/03/18 06:30 BUN 25 mg/dL (7-18) H 10/03/18 06:30 Creatinine 1.01 mg/dL (0.55-1.02) 10/03/18 06:30 Estimated GFR/1.73 m2 54.35 (mL/min/1.73m2) 10/03/18 06:30 Glucose 133 mg/dL (70-100) H 10/03/18 06:30 Calcium 8.7 mg/dL (8.5-10.1) 10/03/18 06:30 Magnesium 2.3 mg/dL (1.8-2.4) 10/03/18 06:30 Total Bilirubin 0.4 mg/dL (0.2-1.0) 09/30/18 05:50 AST 25 U/L (15-37) 09/30/18 05:50 ALT 20 U/L (12-78) 09/30/18 05:50 Alkaline Phosphatase 63 U/L (46-116) 09/30/18 05:50 Troponin I 0.02 ng/mL (0.00-0.06) 09/30/18 09:00 Total Protein 7.1 g/dL (6.4-8.2) 09/30/18 05:50 Albumin 3.5 g/dL (3.4-5.0) 09/30/18 05:50 TSH 0.91 uIU/mL (0.358-3.74) 09/30/18 05:50
[2018-10-03] MEDS: Atorvastatin 40 MG TAB 80 MG PO (20:37)
[2018-10-03] MEDS: LORazepam 1 MG TAB PO (20:37)
[2018-10-03] MEDS: guaiFENesin 200 MG/10 ML CUP PO (22:16)
[2018-10-04] VITALS (8 sets, daily range): BP systolic 112–178; BP diastolic 62–80; PULSE 63–73; RESP 4–26; TEMP 36–36.7; O2SAT 92–98
[2018-10-04] MEDS: Normal Saline Flush 10 ML SYR IVP ×4 (04:50→19:33)
[2018-10-04] MEDS: methylPREDNISolone SUCC 125 MG VIAL 60 MG IVP ×2 (04:50→11:56)
[2018-10-04] MEDS: Normal Saline 500 ML 100 ML IV (05:20)
[2018-10-04] MEDS: Levothyroxine 50 MCG TAB PO (06:55)
[2018-10-04 07:17] LABS: Abs Immature Grans 0.06 k/cumm (0.0-0.09); Absolute Basophil Count 0.01 k/cumm (0.0-0.2); Absolute Neutrophil Count 9.57 k/cumm (1.2-6.7); Basophils % 0.1; HCT 39.6 % (36.0-46.0); HGB 12.6 g/dL (12.0-15.5); Immature Grans % 0.5; Lymphocytes % 6.4; Mean Corp. HGB Concentration 31.8 g/dL (32.0-36.0); Mean Corpuscular Volume 91.2 fL (80-95); Monocytes % 5.5; Neutrophils % 87.5; Platelet Count 226 x1000/uL (130-400); RBC 4.34 m/cumm (4.00-5.20); RBC Distribution Width 13.1 % (11.7-14.6); White Blood Cell Count 10.94 k/cumm (4.4-10.8)
[2018-10-04] MEDS: Albuterol/Ipratropium 3 ML UPD VIAL UPD (07:20)
[2018-10-04 07:27] LABS: Anion Gap 5.9 mmol/L (3-11); BUN 27 mg/dL (7-18); CO2 30.1 mmol/L (21.0-32.0); CREATININE 1.04 mg/dL (0.55-1.02); Calcium 8.3 mg/dL (8.5-10.1); Chloride 103 mmol/L (98-107); Estimated GFR 52.54 (mL/min/1.73m2); Glucose 148 mg/dL (70-100); Magnesium 2.2 mg/dL (1.8-2.4); Potassium 3.9 mmol/L (3.5-5.1); Sodium 139 mmol/L (136-145)
[2018-10-04] MEDS: Pantoprazole 40 MG VIAL IVP (08:46)
[2018-10-04] MEDS: Enoxaparin 40 MG/0.4 ML SYR SC (08:46)
[2018-10-04] MEDS: Aspirin E.C. 81 MG TABEC PO (08:47)
[2018-10-04] MEDS: Citalopram 20 MG TAB 40 MG PO (08:47)
[2018-10-04] MEDS: Lisinopril 5 MG TAB 2.5 MG PO (08:47)
[2018-10-04] MEDS: Metoprolol CR 25 MG TABCR PO (08:47)
[2018-10-04] MEDS: Hydroxychloroquine 200 MG TAB PO (08:47)
[2018-10-04] MEDS: Triamterene 37.5/HCTZ 25 CAP PO (08:47)
[2018-10-04] MEDS: Gabapentin 300 MG CAP PO (08:47)
[2018-10-04] MEDS: Ipratropium/Albuterol 4 GM 120 PUFF INH IH ×2 (09:29→19:51)
[2018-10-04] MEDS: Potassium Chloride 10 MEQ TABCR PO (11:56)
--- NOTE | 2018-10-04 14:29 | PDOC.CMPRO ---
Care Management Progress Note S/O: Thanh was sitting up in her chair when CM met with her. She reported not completing the overnight oximetry last night and anticipating completing it tonight. She spoke in length about her life and reported enjoying just visiting. She also reviewed her discharge plan and stated she would be attending Pulmonary Rehab in the mornings and felt confident she could drive herself and attend regularly. CM will continue to follow. A: 67 year old female admitted to [facility] 09/30/18 for COPD Exacerbation P: Thanh will return home when ready per MD. She will follow up with her PCP and plan of care as prescribed. CM will continue to follow; anticipate Thanh will follow up with Pulmonary Rehab. Thanh will transport home via private vehicle with one of her children
--- NOTE | 2018-10-04 16:40 | CMPROGNOTE_ITS ---
Care Management Progress Note S/O: Thanh was sitting up in her chair when CM met with her. She reported not completing the overnight oximetry last night and anticipating completing it tonight. She spoke in length about her life and reported enjoying just visiting. She also reviewed her discharge plan and stated she would be attending Pulmonary Rehab in the mornings and felt confident she could drive herself and attend regularly. CM will continue to follow. A: 67 year old female admitted to [facility] 09/30/18 for COPD Exacerbation P: Thanh will return home when ready per MD. She will follow up with her PCP and plan of care as prescribed. CM will continue to follow; anticipate Thanh will follow up with Pulmonary Rehab. Thanh will transport home via private vehicle with one of her children
--- NOTE | 2018-10-04 16:51 | W.PM.PROGNOT ---
Date of Service Date of service: 10/04/18 Time of Service: 16:51 Assessment and Plan (1) COPD exacerbation: Current visit: Yes Status: Acute Severe by PFTs in 2015. Currently with acute exacerbation. Continue IV steroids, and given change in cough also on antibiotics with day #4 of Ceftriaxone. Continue nebs. (2) CAD (coronary artery disease), [place] coronary artery: Current visit: Yes Status: Chronic Asymptomatic, with negative troponins. Continue ASA, statin, and BB. Patient also on ANTHONY-I as well as Triamterene/HCTZ for blood pressure control. (3) Lupus (systemic lupus erythematosus): Current visit: No Status: Chronic Discoid Lupus Erythematosus. Currently on Hydroxychloroquine. (4) Petit mal epilepsy: Current visit: No Status: Chronic Continue Gabapentin. (5) Hypothyroidism: Current visit: No Status: Chronic Continue replacement therapy. (6) DENISE (acute kidney injury): Current visit: Yes Status: Acute Likely secondary to dehydration by labs and exam - resolved with gentle IVFs. (7) DVT prophylaxis: Current visit: Yes Status: Acute SC Lovenox. Also on PPI for GI Prophylaxis. Subjective Interval history since last seen: 67 year old woman with a prior history of COPD, admitted from [facility] Emergency Department with a diagnosis of acute COPD exacerbation. Mrs. Gonzalez has a past medical history significant for COPD and prior tobacco use. She is also diagnosed with Discoid lupus, CAD, prior seizures, hypothyroidism, ADHD, and anxiety. The patient presented to the ED via EMS with complaints of increasing dyspnea and URI type symptoms approximately 2 weeks prior to admission. She reported subjective low grade fevers, nasal congestion, change in cough, and sore throat. She had increased her use of inhalers and nebulizers without effect. In the ED she was found to be hypoxic, but without a fever, leukocytosis, or evidence of pneumonia by CXR. She was referred for admission. This morning the patient reports improvement overall in comparison to her presenting symptoms, and perhaps mildly better than yesterday, but still far from baseline. Whe was ambulated via RT without supplemental oxygen need with walking or at rest. Mild elevation in WBC on steroid therapy, improved. No overnight events reported. Remains afebrile. Exam Narrative Exam Narrative: General: Patient appears comfortable, AAOX3, NAD Neck: Supple CV: Regular, nontachycardic, S1S2, No rubs, murmurs, or gallops. Pulmonary: Significantly diminished breathsounds throughout but with improved air entry. Continued mild wheezing. Overall improved. Abdomen: + Bowel Sounds, soft, nontender, nondistended Vascular: No lower extremity edema Psych: Normal mood and affect. Objective Objective Clinical Data: Abnormal lab results 10/04/18 10/04/18 Range/Units 06:10 06:10 WBC 10.94 H (4.4-10.8) k/cumm MCHC 31.8 L (32.0-36.0) g/dL MPV 12.0 H (8.0-11.0) fL Absolute Neutrophils 9.57 H (1.2-6.7) k/cumm Absolute Lymphocytes 0.70 L (1.2-3.4) k/cumm BUN 27 H (7-18) mg/dL Creatinine 1.04 H (0.55-1.02) mg/dL Glucose 148 H (70-100) mg/dL Calcium 8.3 L (8.5-10.1) mg/dL Vital Signs Temperature 36.3 C L 10/04/18 16:01 Temperature Source Tympanic 10/04/18 16:01 Pulse 63 10/04/18 16:01 Pulse Rhythm Regular 10/04/18 16:23 Respiratory Rate 18 10/04/18 16:01 Respiratory Effort 10/04/18 16:23 Respiratory Depth Normal 10/04/18 16:23 Respiratory Pattern Normal 10/04/18 16:23 Blood Pressure 156/79 H 10/04/18 16:01 Blood Pressure Mean 114 09/30/18 04:46 Pulse Oximetry 93 L 10/04/18 16:01 Oxygen Delivery Method Room Air 10/04/18 16:01 Oxygen Flow Rate 0 10/04/18 16:01 Pain Level 0 10/04/18 07:41 Comment 10/02/18 04:20 Intake & Output 10/03/18 10/04/18 10/04/18 23:59 11:59 23:59 Intake Total 520 / 1360 1953.333 / 2203.333 250 / 2203.333 Balance 520 / 1360 1953.333 / 2203.333 250 / 2203.333 Weight 68.8 kg Intake: IV 40 / 120 1113.333 / 1113.333 0 / 1113.333 Oral 480 / 1240 840 / 1090 250 / 1090 Other: Comment pt voiding independently in the bathroom VOID X 2 DURING NOC Pt reports she is voiding per her normal routine. Stool Size Small Stool Characteristics Soft Formed Voiding Methods Toilet Toilet Laboratory Results WBC 10.94 k/cumm (4.4-10.8) H 10/04/18 06:10 RBC 4.34 m/cumm (4.00-5.20) 10/04/18 06:10 Hgb 12.6 g/dL (12.0-15.5) 10/04/18 06:10 Hct 39.6 % (36.0-46.0) 10/04/18 06:10 MCV 91.2 fL (80-95) 10/04/18 06:10 MCH 29.0 pg (27.0-33.0) 10/04/18 06:10 MCHC 31.8 g/dL (32.0-36.0) L 10/04/18 06:10 RDW 13.1 % (11.7-14.6) 10/04/18 06:10 Plt Count 226 x1000/uL (130-400) 10/04/18 06:10 MPV 12.0 fL (8.0-11.0) H 10/04/18 06:10 Immature Gran % 0.5 10/04/18 06:10 Neutrophils % 87.5 10/04/18 06:10 Lymphocytes % 6.4 10/04/18 06:10 Atypical Lymphs % 2 10/03/18 06:30 Monocytes % 5.5 10/04/18 06:10 Eosinophils % 0.0 10/04/18 06:10 Basophils % 0.1 10/04/18 06:10 Absolute Neutrophils 9.57 k/cumm (1.2-6.7) H 10/04/18 06:10 Absolute Lymphocytes 0.70 k/cumm (1.2-3.4) L 10/04/18 06:10 Absolute Monocytes 0.60 k/cumm (0.11-0.7) 10/04/18 06:10 Absolute Eosinophils 0.00 k/cumm (0.0-0.7) 10/04/18 06:10 Absolute Basophils 0.01 k/cumm (0.0-0.2) 10/04/18 06:10 Differential Comment Manual differential 10/03/18 06:30 RBC Morphology Normal 10/03/18 06:30 Sodium 139 mmol/L (136-145) 10/04/18 06:10 Potassium 3.9 mmol/L (3.5-5.1) 10/04/18 06:10 Chloride 103 mmol/L (98-107) 10/04/18 06:10 Carbon Dioxide 30.1 mmol/L (21.0-32.0) 10/04/18 06:10 Anion Gap 5.9 mmol/L (3-11) 10/04/18 06:10 BUN 27 mg/dL (7-18) H 10/04/18 06:10 Creatinine 1.04 mg/dL (0.55-1.02) H 10/04/18 06:10 Estimated GFR/1.73 m2 52.54 (mL/min/1.73m2) 10/04/18 06:10 Glucose 148 mg/dL (70-100) H 10/04/18 06:10 Calcium 8.3 mg/dL (8.5-10.1) L 10/04/18 06:10 Magnesium 2.2 mg/dL (1.8-2.4) 10/04/18 06:10 Total Bilirubin 0.4 mg/dL (0.2-1.0) 09/30/18 05:50 AST 25 U/L (15-37) 09/30/18 05:50 ALT 20 U/L (12-78) 09/30/18 05:50 Alkaline Phosphatase 63 U/L (46-116) 09/30/18 05:50 Troponin I 0.02 ng/mL (0.00-0.06) 09/30/18 09:00 Total Protein 7.1 g/dL (6.4-8.2) 09/30/18 05:50 Albumin 3.5 g/dL (3.4-5.0) 09/30/18 05:50 TSH 0.91 uIU/mL (0.358-3.74) 09/30/18 05:50
[2018-10-04] MEDS: Gabapentin 300 MG CAP 600 MG PO (18:28)
[2018-10-04] MEDS: Atorvastatin 40 MG TAB 80 MG PO (19:32)
[2018-10-04] MEDS: LORazepam 1 MG TAB PO (19:33)
[2018-10-04] MEDS: methylPREDNISolone SUCC 40 MG VIAL IVP (19:33)
[2018-10-04] MEDS: guaiFENesin 200 MG/10 ML CUP PO (19:51)
[2018-10-05] VITALS (7 sets, daily range): BP systolic 110–183; BP diastolic 61–81; PULSE 64–77; RESP 18–20; TEMP 35.6–36.6; O2SAT 90–95
[2018-10-05] MEDS: Albuterol 2.5 MG/3 ML INH SOLN VIAL UPD (00:31)
[2018-10-05] MEDS: Acetaminophen 325 MG TAB PO (01:35)
[2018-10-05] MEDS: methylPREDNISolone SUCC 40 MG VIAL IVP ×3 (03:11→20:28)
[2018-10-05] MEDS: Ipratropium/Albuterol 4 GM 120 PUFF INH IH ×3 (05:23→16:24)
[2018-10-05] MEDS: Levothyroxine 50 MCG TAB PO (05:23)
--- NOTE | 2018-10-05 05:56 | NUR.NOTE ---
Nursing Note: Thanh has not had a good night. She has felt like she can't breathe all shift, her lung sounds are wheezy throughout. O2 sat 94% on room air, 95% on 1L NC O2. She has used prn oxygen overnight in her room independently. We have done two prn respiratory treatments with no reported improvement. She has not slept at all, BP has been elevated. She has requested ativan at least 3x but only has order for HS dose which she took at 1930. She is frustrated because of not feeling improvement in her respiratory status and has asked me several times if I have ever seen anything like this before. I went through her prn medications with her because she asked often for ativan. At one point she asked for Tylenol because if was the only med she could take and thought somehow it might help her breathing. I discouraged her from taking the tylenol but a couple of hours later she called and said she had a headache 5/10 now and needed the tylenol. This of course did not improve her overall situation. She has reported a bout of diarrhea overnight and that she is voiding well.
--- NOTE | 2018-10-05 06:14 | NUR.NOTE ---
Nursing Note: A few days ago when I was the pt's nurse I discovered that she had two bottles of Rx ativan in her purse and she admitted to taking the pills prn without hospital staff knowing. I removed the pill bottles from her room, counted 12 tablets left between the two bottles, counted with paralegal secretary Gema and she then called the cloth winding supervisor to get the bottles and take to our pharmacy. Since then the pt has likely had a drastic reduction in her daily ativan doses. In reporting symptoms to charge nurse jarvis she wondered if her issues could be related to benzodiazepine withdrawal. I looked this up and the pt has several listed side effects that are associated such as; agitation/restlessness, diarrhea (IBS like symptoms), hypertension, headache, and insomnia. We will report this off to day shift to discuss with the physician.
[2018-10-05 07:25] LABS: Abs Immature Grans 0.15 k/cumm (0.0-0.09); Absolute Eosinophil Count 0.01 k/cumm (0.0-0.7); Absolute Monocyte Count 0.79 k/cumm (0.11-0.7); Absolute Neutrophil Count 11.33 k/cumm (1.2-6.7); Basophils % 0.2; Eosinophils % 0.1; HCT 43.2 % (36.0-46.0); HGB 14.1 g/dL (12.0-15.5); Immature Grans % 1.1; Lymphocytes % 6.1; Mean Corp. HGB Concentration 32.6 g/dL (32.0-36.0); Mean Corpuscular Hemoglobin 29.3 pg (27.0-33.0); Mean Corpuscular Volume 89.6 fL (80-95); Mean Platelet Volume 11.9 fL (8.0-11.0); Neutrophils % 86.5; Platelet Count 283 x1000/uL (130-400); RBC 4.82 m/cumm (4.00-5.20); RBC Distribution Width 13.1 % (11.7-14.6)
[2018-10-05 07:34] LABS: Anion Gap 7.1 mmol/L (3-11); BUN 31 mg/dL (7-18); CO2 31.9 mmol/L (21.0-32.0); CREATININE 0.99 mg/dL (0.55-1.02); Calcium 8.4 mg/dL (8.5-10.1); Chloride 99 mmol/L (98-107); Estimated GFR 55.61 (mL/min/1.73m2); Glucose 138 mg/dL (70-100); Magnesium 2.1 mg/dL (1.8-2.4); Potassium 4.2 mmol/L (3.5-5.1); Sodium 138 mmol/L (136-145)
[2018-10-05 07:36] LABS: Absolute Basophil Count 0.03 k/cumm (0.0-0.2)
[2018-10-05] MEDS: Lisinopril 5 MG TAB 2.5 MG PO (07:45)
[2018-10-05] MEDS: Triamterene 37.5/HCTZ 25 CAP PO (07:45)
[2018-10-05] MEDS: Metoprolol CR 25 MG TABCR PO (07:46)
[2018-10-05] MEDS: Enoxaparin 40 MG/0.4 ML SYR SC (07:46)
[2018-10-05] MEDS: Hydroxychloroquine 200 MG TAB PO (07:46)
[2018-10-05] MEDS: Citalopram 20 MG TAB 40 MG PO (07:46)
[2018-10-05] MEDS: Aspirin E.C. 81 MG TABEC PO (07:46)
[2018-10-05] MEDS: Gabapentin 300 MG CAP PO (07:46)
[2018-10-05] MEDS: Pantoprazole 40 MG VIAL IVP (07:46)
--- NOTE | 2018-10-05 11:46 | PDOC.CMPRO ---
- If Service Date Differs Date of service: 10/05/18 Time of Service: 11:47 Care Management Progress Note S/O: Thanh is sitting up in her chair when this instructional writer visits this morning. She reports that she did not sleep last night and is tired. 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 Thanh requests RCT transport at time of DC. A: 67 year old female admitted to [facility] 09/30/18 for COPD Exacerbation P: Thanh will return home when ready per MD. She will follow up with her PCP and plan of care as prescribed. CM will continue to follow; anticipate Thanh will follow up with Pulmonary Rehab. Thanh will transport home via private vehicle with one of her children vs. RCT?
[2018-10-05] MEDS: Normal Saline Flush 10 ML SYR IVP ×2 (11:48→20:28)
[2018-10-05] MEDS: LORazepam 1 MG TAB PO ×2 (14:44→17:54)
--- NOTE | 2018-10-05 15:30 | DI.CT_ITS ---
SYMPTOMS/DIAGNOSIS: SHORTNESS OF BREATH CHEST CT FOR PULMONARY EMBOLISM: CT angiography was performed with multi slice acquisition and multi planar and 3D reconstruction. The pulmonary arteries and aorta are well opacified with IV contrast. There is no evidence of pulmonary emboli or aortic dissection. Atherosclerotic changes are seen at the aortic arch and descending aorta. There is no evidence of aneurysm. No pleural or pericardial effusions are seen. There is left atrial enlargement. Emphysematous changes are seen. There are no infiltrates, pulmonary nodules or adenopathy seen. There is an old fracture of the left humeral head. IMPRESSION: Atherosclerotic changes of the aorta. No evidence of pulmonary emboli, aortic dissection or aneurysm. Emphysematous changes.
--- NOTE | 2018-10-05 15:36 | PGE_ITS ---
Date of Service Date of service: 10/05/18 Time of Service: 15:36 Assessment and Plan (1) COPD exacerbation: Start date: 10/05/18 Start time: 15:33 Current visit: Yes Status: Acute 2014 severe PFT, acute exacerbation, is SOB while sitting in a chair. attributes it to anxiety. Day 5 of ceftriaxone, continue nebs, steroids, symbicort has been added. CTA ordered (2) Anxiety: Start date: 10/05/18 Start time: 15:34 Current visit: No Status: Chronic Takes ativan 1 mg po HS and prn daily. Increased dose to BID PRN (3) Lupus (systemic lupus erythematosus): Start date: 10/05/18 Start time: 15:34 Current visit: No Status: Chronic currently on hydroxychloroquine (4) Petit mal epilepsy: Start date: 10/05/18 Start time: 15:35 Current visit: No Status: Chronic continue gabapentin (5) CAD (coronary artery disease), [place] coronary artery: Start date: 10/05/18 Start time: 15:35 Current visit: Yes Status: Chronic denies CP, negative troponins, continue home regimen Subjective Patient reports: shortness of breath Interval history since last seen: Mrs. Gonzalez is a 67 y.o F with PMH COPD, admitted from [facility] emergency Department for exacerbation. Today she is c/o SOB that attributes to anxiety. She usually takes 1 mg ativan at home every night and sometimes during the day. She states that her SOB is worse, she is SOB with talking. She also attributes this to eating a sandwich and pushing on her diaphragm. A CTA was ordered for questionable interstitial disease vs PE vs anxiety in the setting of worsening symptoms. Symbicort was added for wheezing, she is currently on nebs, and updrafts. She is on day 5 of rochephin, continue current meds will reevaluate after CTA. Exam Const General: cooperative, in distress and anxious [facility] Head: normal to inspection Neck Neck: normal visual inspection Lymphatic: no lymphadenopathy noted and no lymphedema noted Chest Chest: normal inspection of the chest Resp Effort & Inspection: normal respiratory effort, able to speak in complete sentences, abnormal respiratory pattern and audible wheezes Auscultation: wheezes Cardio Rate: regular rate Rhythm: regular rhythm GI Inspection: normal to inspection Skin General skin exam: no rashes or lesions noted Extrem General: normal to inspection Objective Objective Clinical Data: Abnormal lab results 10/05/18 10/05/18 Range/Units 06:45 06:45 WBC 13.10 H (4.4-10.8) k/cumm MPV 11.9 H (8.0-11.0) fL Absolute Neutrophils 11.33 H (1.2-6.7) k/cumm Absolute Lymphocytes 0.80 L (1.2-3.4) k/cumm Absolute Monocytes 0.79 H (0.11-0.7) k/cumm BUN 31 H (7-18) mg/dL Glucose 138 H (70-100) mg/dL Calcium 8.4 L (8.5-10.1) mg/dL Vital Signs Temperature 36.4 C L 10/05/18 11:30 Temperature Source Tympanic 10/05/18 11:30 Pulse 65 10/05/18 11:30 Pulse Rhythm Regular 10/05/18 07:37 Respiratory Rate 18 10/05/18 11:30 Respiratory Effort 10/05/18 07:37 Respiratory Depth Shallow 10/05/18 07:37 Respiratory Pattern Normal 10/05/18 07:37 Blood Pressure 148/74 H 10/05/18 11:30 Blood Pressure Mean 114 09/30/18 04:46 Pulse Oximetry 92 L 10/05/18 11:30 Oxygen Delivery Method Room Air 10/05/18 11:30 Oxygen Flow Rate 0 10/05/18 11:30 Pain Level 5 10/05/18 01:35 Comment 10/05/18 07:50 Intake & Output 10/04/18 10/05/18 10/05/18 23:59 11:59 23:59 Intake Total 490 / 2443.333 1110 / 1570 460 / 1570 Balance 490 / 2443.333 1110 / 1570 460 / 1570 Weight 70 kg Intake: IV 0 / 1113.333 70 / 90 20 / 90 Oral 490 / 1330 1040 / 1480 440 / 1480 Other: Comment Pt reports she is voiding per her normal routine. pt reports UOP x 4 overnight. Pt voiding ad [place]. Urine not seen by nursing. Pt denies sx. Voiding Methods Toilet Toilet Toilet Laboratory Results WBC 13.10 k/cumm (4.4-10.8) H 10/05/18 06:45 RBC 4.82 m/cumm (4.00-5.20) 10/05/18 06:45 Hgb 14.1 g/dL (12.0-15.5) 10/05/18 06:45 Hct 43.2 % (36.0-46.0) 10/05/18 06:45 MCV 89.6 fL (80-95) 10/05/18 06:45 MCH 29.3 pg (27.0-33.0) 10/05/18 06:45 MCHC 32.6 g/dL (32.0-36.0) 10/05/18 06:45 RDW 13.1 % (11.7-14.6) 10/05/18 06:45 Plt Count 283 x1000/uL (130-400) 10/05/18 06:45 MPV 11.9 fL (8.0-11.0) H 10/05/18 06:45 Immature Gran % 1.1 10/05/18 06:45 Neutrophils % 86.5 10/05/18 06:45 Lymphocytes % 6.1 10/05/18 06:45 Atypical Lymphs % 2 10/03/18 06:30 Monocytes % 6.0 10/05/18 06:45 Eosinophils % 0.1 10/05/18 06:45 Basophils % 0.2 10/05/18 06:45 Absolute Neutrophils 11.33 k/cumm (1.2-6.7) H 10/05/18 06:45 Absolute Lymphocytes 0.80 k/cumm (1.2-3.4) L 10/05/18 06:45 Absolute Monocytes 0.79 k/cumm (0.11-0.7) H 10/05/18 06:45 Absolute Eosinophils 0.01 k/cumm (0.0-0.7) 10/05/18 06:45 Absolute Basophils 0.03 k/cumm (0.0-0.2) 10/05/18 06:45 Differential Comment Manual differential 10/03/18 06:30 RBC Morphology Normal 10/03/18 06:30 Sodium 138 mmol/L (136-145) 10/05/18 06:45 Potassium 4.2 mmol/L (3.5-5.1) 10/05/18 06:45 Chloride 99 mmol/L (98-107) 10/05/18 06:45 Carbon Dioxide 31.9 mmol/L (21.0-32.0) 10/05/18 06:45 Anion Gap 7.1 mmol/L (3-11) 10/05/18 06:45 BUN 31 mg/dL (7-18) H 10/05/18 06:45 Creatinine 0.99 mg/dL (0.55-1.02) 10/05/18 06:45 Estimated GFR/1.73 m2 55.61 (mL/min/1.73m2) 10/05/18 06:45 Glucose 138 mg/dL (70-100) H 10/05/18 06:45 Calcium 8.4 mg/dL (8.5-10.1) L 10/05/18 06:45 Magnesium 2.1 mg/dL (1.8-2.4) 10/05/18 06:45 Total Bilirubin 0.4 mg/dL (0.2-1.0) 09/30/18 05:50 AST 25 U/L (15-37) 09/30/18 05:50 ALT 20 U/L (12-78) 09/30/18 05:50 Alkaline Phosphatase 63 U/L (46-116) 09/30/18 05:50 Troponin I 0.02 ng/mL (0.00-0.06) 09/30/18 09:00 Total Protein 7.1 g/dL (6.4-8.2) 09/30/18 05:50 Albumin 3.5 g/dL (3.4-5.0) 09/30/18 05:50 TSH 0.91 uIU/mL (0.358-3.74) 09/30/18 05:50
[2018-10-05] MEDS: Omnipaque 350 MG/ML 100 ML BTL IJ (15:39)
--- NOTE | 2018-10-05 16:09 | DI.VRAD_ITS ---
EXAM: CT Angiography Chest With Contrast EXAM DATE/TIME: 10/05/2018 2:48 PM CLINICAL HISTORY: 67 years old, female; Signs and symptoms; Other: SOB TECHNIQUE: Axial computed tomographic angiography images of the chest with intravenous contrast using CT angiography protocol. Coronal and sagittal reformatted images were created and reviewed. MIP reconstructed images were created and reviewed. CONTRAST: Contrast Material: 100 ml of omni 350; Contrast Route: iv COMPARISON: SC XR PORTABLE CHEST AP 09/30/2018 3:43 AM FINDINGS: Pulmonary arteries: No evidence of pulmonary embolus to the segmental level. Aorta: No aneurysm of the aorta. No dissection of the aorta. Lungs: Mild panlobular emphysematous changes Pleural space: Normal. No pneumothorax. No pleural effusion. Heart: Normal. No cardiomegaly. No pericardial effusion. Gallbladder and bile ducts: The common duct is prominent. It measures 13 millimeters. This may be due to elderly status. However, if biliary obstruction is suspected clinically, recommend further evaluation Lymph nodes: Unremarkable. No enlarged lymph nodes. 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 IMPRESSION: 1. No evidence of pulmonary embolus to the segmental level. 2. No aneurysm of the aorta. 3. No dissection of the aorta. Dictated and Authenticated by: Jose Cavazos MD. Ordering:EZ Santana MD
[2018-10-05] MEDS: Gabapentin 300 MG CAP 600 MG PO (17:54)
[2018-10-05] MEDS: Budesonide/Formoterol 80/4.5 6.9 GM 60 PUFF INH IH (20:27)
[2018-10-05] MEDS: Atorvastatin 40 MG TAB 80 MG PO (20:28)
[2018-10-06] VITALS (10 sets, daily range): BP systolic 145–170; BP diastolic 58–95; PULSE 57–77; RESP 4–26; TEMP 35.8–36.9; O2SAT 84–95
--- NOTE | 2018-10-06 03:27 | NUR.NOTE ---
Nursing Note: Pt requesting ativan. on assessment she appears to be comfortable and her breathing appears improved from earlier. She has also been drinking coffee all night and has not slept, she watches infomercial type videos on her phone through night.
[2018-10-06] MEDS: LORazepam 1 MG TAB PO ×2 (03:30→22:01)
[2018-10-06] MEDS: Albuterol/Ipratropium 3 ML UPD VIAL UPD (03:30)
[2018-10-06] MEDS: Normal Saline Flush 10 ML SYR IVP ×4 (03:59→22:00)
[2018-10-06] MEDS: methylPREDNISolone SUCC 40 MG VIAL IVP ×2 (03:59→11:46)
[2018-10-06] MEDS: Levothyroxine 50 MCG TAB PO (06:38)
[2018-10-06 07:05] LABS: Abs Immature Grans 0.17 k/cumm (0.0-0.09); Absolute Basophil Count 0.01 k/cumm (0.0-0.2); Absolute Lymphocyte Count 0.86 k/cumm (1.2-3.4); Absolute Monocyte Count 0.88 k/cumm (0.11-0.7); Absolute Neutrophil Count 8.91 k/cumm (1.2-6.7); Basophils % 0.1; HCT 41.6 % (36.0-46.0); HGB 13.6 g/dL (12.0-15.5); Immature Grans % 1.6; Lymphocytes % 7.9; Mean Corp. HGB Concentration 32.7 g/dL (32.0-36.0); Mean Corpuscular Hemoglobin 29.4 pg (27.0-33.0); Mean Corpuscular Volume 89.8 fL (80-95); Mean Platelet Volume 11.6 fL (8.0-11.0); Monocytes % 8.1; Neutrophils % 82.3; Platelet Count 251 x1000/uL (130-400); RBC 4.63 m/cumm (4.00-5.20); RBC Distribution Width 13.1 % (11.7-14.6); White Blood Cell Count 10.83 k/cumm (4.4-10.8)
[2018-10-06 07:21] LABS: Anion Gap 6.1 mmol/L (3-11); BUN 27 mg/dL (7-18); CO2 32.9 mmol/L (21.0-32.0); CREATININE 1.06 mg/dL (0.55-1.02); Calcium 8.5 mg/dL (8.5-10.1); Chloride 100 mmol/L (98-107); Glucose 208 mg/dL (70-100); Magnesium 2.1 mg/dL (1.8-2.4); Potassium 4.2 mmol/L (3.5-5.1); Sodium 139 mmol/L (136-145)
[2018-10-06] MEDS: Metoprolol CR 25 MG TABCR PO (07:58)
[2018-10-06] MEDS: Hydroxychloroquine 200 MG TAB PO (07:58)
[2018-10-06] MEDS: Gabapentin 300 MG CAP PO (07:58)
[2018-10-06] MEDS: Citalopram 20 MG TAB 40 MG PO (07:58)
[2018-10-06] MEDS: Enoxaparin 40 MG/0.4 ML SYR SC (07:59)
[2018-10-06] MEDS: Pantoprazole 40 MG VIAL IVP (07:59)
[2018-10-06] MEDS: Aspirin E.C. 81 MG TABEC PO (07:59)
[2018-10-06] MEDS: Budesonide/Formoterol 80/4.5 6.9 GM 60 PUFF INH IH ×2 (08:01→20:23)
[2018-10-06] MEDS: Ipratropium/Albuterol 4 GM 120 PUFF INH IH ×3 (08:17→15:46)
[2018-10-06] MEDS: DOXYCYCLINE 100 MG in Normal Saline 100 ML IVPB ×2 (11:13→22:00)
[2018-10-06] MEDS: Normal Saline 500 ML 30 ML IV (11:13)
[2018-10-06] MEDS: Insulin Aspart 300 UNITS/3 ML PEN SC ×2 (11:46→16:52)
--- NOTE | 2018-10-06 14:02 | PDOC.CMPRO ---
- If Service Date Differs Date of service: 10/06/18 Time of Service: 14:02 Care Management Progress Note S/O: Thanh is sitting in her chair when this comic book writer visits this morning. She states that she had a tough morning. No change in DC plan. A: 67 year old female admitted to [facility] 09/30/18 for COPD Exacerbation P: Thanh will return home when ready per MD. She will follow up with her PCP and plan of care as prescribed. CM will continue to follow; anticipate Thanh will follow up with Pulmonary Rehab. Thanh will transport home via private vehicle with one of her children vs. RCT?
--- NOTE | 2018-10-06 14:12 | CMPROGNOTE_ITS ---
- If Service Date Differs Date of service: 10/06/18 Time of Service: 14:02 Care Management Progress Note S/O: Thanh is sitting in her chair when this group underwriter visits this morning. She states that she had a tough morning. No change in DC plan. A: 67 year old female admitted to [facility] 09/30/18 for COPD Exacerbation P: Thanh will return home when ready per MD. She will follow up with her PCP and plan of care as prescribed. CM will continue to follow; anticipate Thanh will follow up with Pulmonary Rehab. Thanh will transport home via private vehicle with one of her children vs. RCT?
[2018-10-06] MEDS: Lactobacillus Acidophilus CAP 1 CAP PO ×2 (14:45→20:23)
[2018-10-06] MEDS: Gabapentin 300 MG CAP 600 MG PO (17:34)
--- NOTE | 2018-10-06 17:47 | PGE_ITS ---
Date of Service Date of service: 10/06/18 Time of Service: 16:00 Assessment and Plan (1) COPD exacerbation: Current visit: Yes Status: Acute In 2015, severe by PFT. I have increased her steroids and added doxycycline to her rocephin. Continue nebs, steroids, symbicort. No evidence of PE on CTA. (2) Anxiety: Current visit: No Status: Chronic Continue ativan BID PRN. Verified with [facility] - this is her outpatient dosing. (3) Lupus (systemic lupus erythematosus): Current visit: No Status: Chronic currently on hydroxychloroquine (4) Petit mal epilepsy: Current visit: No Status: Chronic continue gabapentin (5) CAD (coronary artery disease), [place] coronary artery: Current visit: Yes Status: Chronic stable; no evidence of ACS at this time. No change in tx. (6) DVT prophylaxis: Current visit: Yes Status: Acute Lovenox (7) Discharge planning issues: Current visit: Yes Status: Acute Full code oxygen requirement is new - will need to be reassessed prior to discharge. not yet ready for discharge. PT/OT consulted per patient request Subjective Interval history since last seen: Feels a little bit better today, though she continues to wheeze. Cough has been nonproductive. Denies dizziness, chest pain, nausea, vomiting. Still short of breath. On ambulation on room air, her O2 sats dropped to 84%; on 2L, they went up to 95%. Patient spoke with me on room air with a pulse ox on her finger; her O2 sat remained >90%. Exam Narrative Exam Narrative: General: Middle aged female, sitting comfortably in a chair, audibly wheezing on room air, not appearing tachypenic; anxious HEENT: EOMI, MMM Heart: RRR, no m/r/g Lungs: wheezing on expiration B GI: abdomen is soft, nontender, nondistended Extremities: no edema, clubbing, or cyanosis of BLE's Objective Objective Clinical Data: Abnormal lab results 10/06/18 10/06/18 Range/Units 06:35 06:45 WBC 10.83 H (4.4-10.8) k/cumm MPV 11.6 H (8.0-11.0) fL Absolute Neutrophils 8.91 H (1.2-6.7) k/cumm Absolute Lymphocytes 0.86 L (1.2-3.4) k/cumm Absolute Monocytes 0.88 H (0.11-0.7) k/cumm Carbon Dioxide 32.9 H (21.0-32.0) mmol/L BUN 27 H (7-18) mg/dL Creatinine 1.06 H (0.55-1.02) mg/dL Glucose 208 H (70-100) mg/dL Vital Signs Temperature 36.4 C L 10/06/18 16:05 Temperature Source Tympanic 10/06/18 16:05 Pulse 61 10/06/18 16:05 Pulse Rhythm Regular 10/06/18 07:52 Respiratory Rate 20 10/06/18 16:05 Respiratory Effort Incrsd Work of Breathing 10/06/18 07:52 Respiratory Depth Shallow 10/06/18 07:52 Respiratory Pattern Normal 10/06/18 07:52 Blood Pressure 168/83 H 10/06/18 16:05 Blood Pressure Mean 114 09/30/18 04:46 Pulse Oximetry 92 L 10/06/18 16:05 Oxygen Delivery Method Room Air 10/06/18 16:05 Oxygen Flow Rate 0 10/06/18 16:05 Pain Level 0 10/06/18 11:56 Comment 10/05/18 07:50 Intake & Output 10/05/18 10/06/18 10/06/18 23:59 11:59 23:59 Intake Total 980 / 0 550 / 1643.5 1093.5 / 1643.5 Output Total 400 / 400 Balance 980 / 0 150 / 1243.5 1093.5 / 1243.5 Weight 68.1 kg Intake: IV 50 / 120 70 / 203.5 133.5 / 203.5 Oral 930 / 1970 480 / 1440 960 / 1440 Output: Urine 400 / 400 Other: Urine Color Yellow Comment Ind in room with UOP Pt voiding ad [place] in toilet. Denies sx. Stool Size Small Stool Characteristics Soft Voiding Methods Toilet Toilet Laboratory Results WBC 10.83 k/cumm (4.4-10.8) H 10/06/18 06:35 RBC 4.63 m/cumm (4.00-5.20) 10/06/18 06:35 Hgb 13.6 g/dL (12.0-15.5) 10/06/18 06:35 Hct 41.6 % (36.0-46.0) 10/06/18 06:35 MCV 89.8 fL (80-95) 10/06/18 06:35 MCH 29.4 pg (27.0-33.0) 10/06/18 06:35 MCHC 32.7 g/dL (32.0-36.0) 10/06/18 06:35 RDW 13.1 % (11.7-14.6) 10/06/18 06:35 Plt Count 251 x1000/uL (130-400) 10/06/18 06:35 MPV 11.6 fL (8.0-11.0) H 10/06/18 06:35 Immature Gran % 1.6 10/06/18 06:35 Neutrophils % 82.3 10/06/18 06:35 Lymphocytes % 7.9 10/06/18 06:35 Atypical Lymphs % 2 10/03/18 06:30 Monocytes % 8.1 10/06/18 06:35 Eosinophils % 0.0 10/06/18 06:35 Basophils % 0.1 10/06/18 06:35 Absolute Neutrophils 8.91 k/cumm (1.2-6.7) H 10/06/18 06:35 Absolute Lymphocytes 0.86 k/cumm (1.2-3.4) L 10/06/18 06:35 Absolute Monocytes 0.88 k/cumm (0.11-0.7) H 10/06/18 06:35 Absolute Eosinophils 0.00 k/cumm (0.0-0.7) 10/06/18 06:35 Absolute Basophils 0.01 k/cumm (0.0-0.2) 10/06/18 06:35 Differential Comment Manual differential 10/03/18 06:30 RBC Morphology Normal 10/03/18 06:30 Sodium 139 mmol/L (136-145) 10/06/18 06:45 Potassium 4.2 mmol/L (3.5-5.1) 10/06/18 06:45 Chloride 100 mmol/L (98-107) 10/06/18 06:45 Carbon Dioxide 32.9 mmol/L (21.0-32.0) H 10/06/18 06:45 Anion Gap 6.1 mmol/L (3-11) 10/06/18 06:45 BUN 27 mg/dL (7-18) H 10/06/18 06:45 Creatinine 1.06 mg/dL (0.55-1.02) H 10/06/18 06:45 Estimated GFR/1.73 m2 51.40 (mL/min/1.73m2) 10/06/18 06:45 Glucose 208 mg/dL (70-100) H 10/06/18 06:45 Calcium 8.5 mg/dL (8.5-10.1) 10/06/18 06:45 Magnesium 2.1 mg/dL (1.8-2.4) 10/06/18 06:45 Total Bilirubin 0.4 mg/dL (0.2-1.0) 09/30/18 05:50 AST 25 U/L (15-37) 09/30/18 05:50 ALT 20 U/L (12-78) 09/30/18 05:50 Alkaline Phosphatase 63 U/L (46-116) 09/30/18 05:50 Troponin I 0.02 ng/mL (0.00-0.06) 09/30/18 09:00 Total Protein 7.1 g/dL (6.4-8.2) 09/30/18 05:50 Albumin 3.5 g/dL (3.4-5.0) 09/30/18 05:50 TSH 0.91 uIU/mL (0.358-3.74) 09/30/18 05:50
[2018-10-06] MEDS: methylPREDNISolone SUCC 40 MG VIAL 60 MG IVP (18:09)
[2018-10-06] MEDS: Atorvastatin 40 MG TAB 80 MG PO (20:23)
[2018-10-07] VITALS (9 sets, daily range): BP systolic 137–183; BP diastolic 68–78; PULSE 67–78; RESP 4–22; TEMP 35.7–36.7; O2SAT 91–95
[2018-10-07] MEDS: Normal Saline Flush 10 ML SYR IVP ×4 (02:06→22:12)
[2018-10-07] MEDS: methylPREDNISolone SUCC 40 MG VIAL 60 MG IVP ×3 (02:06→18:13)
[2018-10-07] MEDS: Levothyroxine 50 MCG TAB PO (05:34)
[2018-10-07] MEDS: Albuterol/Ipratropium 3 ML UPD VIAL UPD ×4 (05:34→22:17)
[2018-10-07] MEDS: LORazepam 1 MG TAB PO ×2 (05:53→19:05)
[2018-10-07 07:19] LABS: Abs Immature Grans 0.25 k/cumm (0.0-0.09); Absolute Monocyte Count 0.77 k/cumm (0.11-0.7); Basophils % 0.1; HCT 42.6 % (36.0-46.0); Immature Grans % 1.9; Lymphocytes % 7.4; Mean Corp. HGB Concentration 32.9 g/dL (32.0-36.0); Mean Corpuscular Hemoglobin 29.6 pg (27.0-33.0); Mean Corpuscular Volume 90.1 fL (80-95); Mean Platelet Volume 11.7 fL (8.0-11.0); Monocytes % 5.7; Neutrophils % 84.9; Platelet Count 287 x1000/uL (130-400); RBC 4.73 m/cumm (4.00-5.20); White Blood Cell Count 13.44 k/cumm (4.4-10.8)
[2018-10-07 07:22] LABS: Absolute Basophil Count 0.01 k/cumm (0.0-0.2); Absolute Lymphocyte Count 0.99 k/cumm (1.2-3.4); Absolute Neutrophil Count 11.41 k/cumm (1.2-6.7)
[2018-10-07 07:30] LABS: BUN 28 mg/dL (7-18); CREATININE 0.93 mg/dL (0.55-1.02); Calcium 8.8 mg/dL (8.5-10.1); Chloride 103 mmol/L (98-107); Estimated GFR 59.78 (mL/min/1.73m2); Glucose 146 mg/dL (70-100); Potassium 4.4 mmol/L (3.5-5.1); Sodium 141 mmol/L (136-145)
[2018-10-07 07:41] LABS: Magnesium 2.3 mg/dL (1.8-2.4); NT-proBNP 342 pg/mL
[2018-10-07] MEDS: Budesonide/Formoterol 80/4.5 6.9 GM 60 PUFF INH IH ×2 (08:00→19:06)
[2018-10-07] MEDS: Lactobacillus Acidophilus CAP 1 CAP PO ×3 (08:01→19:05)
[2018-10-07] MEDS: Citalopram 20 MG TAB 40 MG PO (08:03)
[2018-10-07] MEDS: Gabapentin 300 MG CAP PO (08:03)
[2018-10-07] MEDS: Pantoprazole 40 MG TABCR PO (08:03)
[2018-10-07] MEDS: Aspirin E.C. 81 MG TABEC PO (08:03)
[2018-10-07] MEDS: Hydroxychloroquine 200 MG TAB PO (08:03)
[2018-10-07] MEDS: Metoprolol CR 25 MG TABCR PO (08:04)
[2018-10-07] MEDS: Insulin Aspart 300 UNITS/3 ML PEN SC ×4 (08:08→22:18)
[2018-10-07 08:21] LABS: Hemoglobin A1C 6.1 % (4.5-6.2)
[2018-10-07] MEDS: Enoxaparin 40 MG/0.4 ML SYR SC (08:22)
--- NOTE | 2018-10-07 08:26 | PDOC.CMPRO ---
Care Management Progress Note S/O: Thanh has begun working with PT/OT to inform discharge planning recommendations. She continues to be closely monitored and has continued to require O2-RT will inform if she will require upon discharge and coordinate accordingly. CM will continue to follow. A: 67 year old female admitted to [facility] 09/30/18 for COPD Exacerbation P: Thanh will return home when ready per MD. She will follow up with her PCP and plan of care as prescribed. CM will continue to follow; anticipate Thanh will follow up with Pulmonary Rehab and may have new orders for home O2 per RT. Thanh will transport home via private vehicle with one of her children vs. RCT.
[2018-10-07] MEDS: Triamterene 37.5/HCTZ 25 CAP PO (10:23)
[2018-10-07] MEDS: Lisinopril 5 MG TAB 2.5 MG PO (10:24)
[2018-10-07] MEDS: DOXYCYCLINE 100 MG in Normal Saline 100 ML IVPB ×2 (10:52→22:13)
[2018-10-07] MEDS: Normal Saline 500 ML IV (10:58)
--- NOTE | 2018-10-07 12:23 | PT.INIE ---
Date of service: 10/07/18 Time of Service: 12:23 PT Notes Inpatient Physical Therapy Evaluation Date: October 07, 2018 Referring Doctor: Dr. Laine Calix PT Orders: PT CONSULT: Patient is 67-year-old female referred to physical therapy today for evaluation and treat to address impairments and functional deficits from recent in-patient hospitalization 10/06/2018 Precautions: Falls. Standard. Low endurance. On continuos oxygen at 1 L/minute via nasal cannula. Patient Profile/Admitting Diagnosis: Patient was admitted on 10/06/2018 with chief complaints of increased dyspnea and wheezing. She was diagnosed with acute exacerbation of her chornic obstructive pulmonary disease. referral was received today for management of decreased activity tolerance, impaired balance, and functional decline. PMHX: Anxiety, SLE, Peti mal Epilepsy, CAD, DVT prophylaxis (on Lovenox), ADHD, NSTEMI with history of ankle surgery Social History/Home Situation: Patient lives in a one level house with basement and 2 steps to enter, 7 steps and a railing on both sides to the basement. 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 Equipment Owned/DME: None. Subjective: Thanh is a pleasant and cooperative lady, is mildly distracted and needing frequent reorientation to focus into doing breathing exercises. She is agreeable to PT evaluation and treatment. Objective: General Observation: Sitting at edge of bed at time of consultation, mildly dyspneic at rest and with oxygen supplementation via nasal cannula. Mental Status: Requires minimal cueing to focus on activity, oriented x 3 Pain: 0/10. Vital Signs: BP 150/7 mmHg, HR 77 bpm, oxygen saturation at 1 L/min 95%, T 98.9 degrees F. ROM: Right Upper Extremity: WFL Left Upper Extremity: WFL Right Lower Extremity: WFL Left Lower Extremity: WFL Strength: Right Upper Extremity: Sh flexors 5/5. Shoulder abd 4+/5. Elbow extensors 5/5. Sales Account Associate strong and equal. Left Upper Extremity: Sh flexors 5/5. Shoulder abd 4+/5. Elbow extensors 5/5. Sales Account Associate strong and equal. Right Lower Extremity: Hip flexors 4+/5. Knee extensors 4+/5. Ankle dorsiflexors 4/5. Left Lower Extremity: Hip flexors 4+/5. Knee extensors 4+/5. Ankle dorsiflexors 4/5. Bed Mobility/Transfers: Supine<>Sit: SBA Sit<>Stand: SBA Bed<>chair:SBA Gait: Patient tolerated 80 feet x 2 of level surface ambulation using no AD and with continuos oxygen at 1 L /min requiring only SBA and with oxygen saturation staying 90% after walking activity and with Jeronimo Dyspnea scale of 4/10 after walking activity. No gait deviation noted except for apparently reduced gait speed due to impaired endurance level. Balance: Static Sitting: Normal Dynamic Sitting: Normal Static Standing: Good Dynamic Standing: Good- Special Tests: Mobility Limitations Standardized Measure [facility]-PAC 6 clicks Basic Mobility Inpatient Short Form: Raw Score: 21 Standardized Score: 52.38 Informed Consent/Education: Patient instructed in purpose of PT consult and plan of care. Assessment: Patient is a 67 year old female referred to physical therapy services with the diagnosis of acute COPD exaerbation. Patient presents with clinical signs and symptoms consistent with hospital admission mobility status, as demonstrated by the following impairment level findings: 1)Dyspnea 2)Limited balance 3)Weakness 4)Reduced activity tolerance Impairments are contributing to the following functional limitations: 1)Increased completion time for ambulation performance 2)Increased risk for falls during transfer and ambulation task performance 3)Increased dependence in mobility ADL performance 4)Limited ability to complete mobility tasks . Impairments are contributing to the following functional limitations: AMPAC score. Patient is assessed as a [] Moderate 70855 based on the following: History:67-year-old female with acute COPD exacerbation limiting activity tolerance Examination: Functional limitations as noted above Presentation: Evolving Decision Making: Moderate complexity Goals: Goals X1 week 1. Supine-Sit: [place] 2. Sit-Supine: [place] 3. Sit-Stand: [place] 4. Stand-Sit : [place] 5. Bed-Chair: [place] 6. Chair-Bed : [place] 7. Gait : [place] 8. Stairs:[place] 9. Independent with home exercise program 10. Good balance level Plan of Care/Treatment Plan: 1-2x/day, 7 days/week x 1 week. Plan of care has been reviewed with the NETWORK AND THREAT SUPPORT SPECIALIST providing the service under Physical Therapy direction. Initiate Physical Therapy intervention for strengthening, bed mobility, transfers, gait, stairs, and balance training. DISCHARGE RECOMMENDATIONS: Home with sons with needed oxygen supplementation. Patient hopes to have PT services come in to follow up on better breathing exercises and for improvement of functional activity tolerance. She was wondering if nursing can come in as well to do medication management TREATMENT CODE/TIME: 45708, 79772 for a total of 45 minutes (10:00) Rochelle Stevenson, PT, DPT,CLT [facility]
--- NOTE | 2018-10-07 12:28 | IN_ITS ---
Date of service: 10/07/18 Time of Service: 12:23 PT Notes Inpatient Physical Therapy Evaluation Date: October 07, 2018 Referring Doctor: Dr. Laine Calix PT Orders: PT CONSULT: Patient is 67-year-old female referred to physical therapy today for evaluation and treat to address impairments and functional deficits from recent in-patient hospitalization 10/06/2018 Precautions: Falls. Standard. Low endurance. On continuos oxygen at 1 L/minute via nasal cannula. Patient Profile/Admitting Diagnosis: Patient was admitted on 10/06/2018 with chief complaints of increased dyspnea and wheezing. She was diagnosed with acute exacerbation of her chornic obstructive pulmonary disease. referral was received today for management of decreased activity tolerance, impaired balance, and functional decline. PMHX: Anxiety, SLE, Peti mal Epilepsy, CAD, DVT prophylaxis (on Lovenox), ADHD, NSTEMI with history of ankle surgery Social History/Home Situation: Patient lives in a one level house with basement and 2 steps to enter, 7 steps and a railing on both sides to the basement. Patient was not using any assistive device nor any adaptive equipment PMO BUSINESS ANALYST. Equipment Owned/DME: None. Subjective: Thanh is a pleasant and cooperative lady, is mildly distracted and needing frequent reorientation to focus into doing breathing exercises. She is agreeable to PT evaluation and treatment. Objective: General Observation: Sitting at edge of bed at time of consultation, mildly dyspneic at rest and with oxygen supplementation via nasal cannula. Mental Status: Requires minimal cueing to focus on activity, oriented x 3 Pain: 0/10. Vital Signs: BP 150/7 mmHg, HR 77 bpm, oxygen saturation at 1 L/min 95%, T 98.9 degrees F. ROM: Right Upper Extremity: WFL Left Upper Extremity: WFL Right Lower Extremity: WFL Left Lower Extremity: WFL Strength: Right Upper Extremity: Sh flexors 5/5. Shoulder abd 4+/5. Elbow extensors 5/5. Mobile Manager strong and equal. Left Upper Extremity: Sh flexors 5/5. Shoulder abd 4+/5. Elbow extensors 5/5. Mobile Manager strong and equal. Right Lower Extremity: Hip flexors 4+/5. Knee extensors 4+/5. Ankle dors iflexors 4/5. Left Lower Extremity: Hip flexors 4+/5. Knee extensors 4+/5. Ankle dorsiflexors 4/5. Bed Mobility/Transfers: Supine<>Sit: SBA Sit<>Stand: SBA Bed<>chair:SBA Gait: Patient tolerated 80 feet x 2 of level surface ambulation using no AD and with continuos oxygen at 1 L /min requiring only SBA and with oxygen saturation staying 90% after walking activity and with Jeronimo Dyspnea scale of 4/10 after walking activity. No gait deviation noted except for apparently reduced gait speed due to impaired endurance level. Balance: Static Sitting: Normal Dynamic Sitting: Normal Static Standing: Good Dynamic Standing: Good- Special Tests: Mobility Limitations Standardized Measure [facility]-PAC 6 clicks Basic Mobility Inpatient Short Form: Raw Score: 21 Standardized Score: 52.38 Informed Consent/Education: Patient instructed in purpose of PT consult and plan of care. Assessment: Patient is a 67 year old female referred to physical therapy services with the diagnosis of acute COPD exaerbation. Patient presents with clinical signs and symptoms consistent with hospital admission mobility status, as demonstrated by the following impairment level findings: 1)Dyspnea 2)Limited balance 3)Weakness 4)Reduced activity tolerance Impairments are contributing to the following functional limitations: 1)Increased completion time for ambulation performance 2)Increased risk for falls during transfer and ambulation task performance 3)Increased dependence in mobility ADL performance 4)Limited ability to complete mobility tasks . Impairments are contributing to the following functional limitations: AMPAC score. Patient is assessed as a [] Moderate 62171 based on the following: History:67-year-old female with acute COPD exacerbation limiting activity tolerance Examination: Functional limitations as noted above Presentation: Evolving Decision Making: Moderate complexity Goals: Goals X1 week 1. Supine-Sit: [place] 2. Sit-Supine: [place] 3. Sit-Stand: [place] 4. Stand-Sit : [place] 5. Bed-Chair: [place] 6. Chair-Bed : [place] 7. Gait : [place] 8. Stairs:[place] 9. Independent with home exercise program 10. Good balance level Plan of Care/Treatment Plan: 1-2x/day, 7 days/week x 1 week. Plan of care has been reviewed with the PMO BUSINESS ANALYST providing the service under Physical Therapy direction. Initiate Physical Therapy intervention for strengthening, bed mobility, transfers, gait, stairs, and balance training. DISCHARGE RECOMMENDATIONS: Home with sons with needed oxygen supplementation. Patient hopes to have PT services come in to follow up on better breathing exercises and for improvement of functional activity tolerance. She was wondering if nursing can come in as well to do medication management TREATMENT CODE/TIME: 79736, 93118 for a total of 45 minutes (10:00) Rochelle Stevenson, PT, DPT,CLT [facility]
--- NOTE | 2018-10-07 13:41 | W.PM.PROGNOT ---
Date of Service Date of service: 10/07/18 Time of Service: 13:41 Assessment and Plan (1) COPD exacerbation: Start date: 10/07/18 Start time: 13:42 Current visit: Yes Status: Acute Lung sounds with expiratory wheezing, continue steroids, continue doxycycline and rocephin, nebs, steroids, and symbicort. Pt does feel breathing is better. appears SOB with rest, changed updraft to scheduled q 4 hours. (2) Anxiety: Start date: 10/07/18 Start time: 13:46 Current visit: No Status: Chronic continue lorazepam BID (3) Lupus (systemic lupus erythematosus): Start date: 10/07/18 Start time: 13:46 Current visit: No Status: Chronic continue hydroxychoroquine (4) GERD (gastroesophageal reflux disease): Start date: 10/07/18 Start time: 13:46 Current visit: Yes Status: Chronic feels like something gets stuck, a gurgling elicited by a cough, zantac added along with protonix (5) Petit mal epilepsy: Start date: 10/07/18 Start time: 13:47 Current visit: No Status: Chronic continue gabapentin (6) Perirectal skin irritation: Start date: 10/07/18 Start time: 13:52 Current visit: Yes Status: Acute she c/o having skin irritation to her perirectal area, butt paste has been ordered. Subjective Patient reports: shortness of breath Interval history since last seen: Mrs. Gonzalez is a 67 y.o F with PMH COPD, admitted from [facility] emergency Department for exacerbation. Today she is feeling better, though she appears to have SOB when sitting in a chair. She believes the SOB is getting better. She denies CP and abdominal pain. She does c/o a gurggling in her throat that starts in mid chest, denies pressure, given this could be reflux from increased steroid dose, zantac has been added. She also c/o irritation to her perirectal area, butt paste has been ordered. Exam Const General: cooperative, in distress and anxious HENMT Head: normal to inspection Neck Neck: normal visual inspection Lymphatic: no lymphadenopathy noted and no lymphedema noted Chest Chest: normal inspection of the chest Resp Effort & Inspection: normal respiratory effort, able to speak in complete sentences and abnormal respiratory pattern Auscultation: wheezes expiratory wheezes Cardio Rate: regular rate Rhythm: regular rhythm GI Inspection: normal to inspection Skin Other: excoriation Neuro General: alert, awake and oriented x3 Extrem General: normal to inspection Objective Objective Clinical Data: Abnormal lab results 10/07/18 10/07/18 10/07/18 Range/Units 06:23 06:23 06:23 WBC 13.44 H (4.4-10.8) k/cumm MPV 11.7 H (8.0-11.0) fL Absolute Neutrophils 11.41 H (1.2-6.7) k/cumm Absolute Lymphocytes 0.99 L (1.2-3.4) k/cumm Absolute Monocytes 0.77 H (0.11-0.7) k/cumm Carbon Dioxide 35.0 H (21.0-32.0) mmol/L BUN 28 H (7-18) mg/dL Glucose 146 H (70-100) mg/dL NT-Pro-B Natriuret Pep 342 H ( - 299) pg/mL Vital Signs Temperature 36.5 C 10/07/18 11:55 Temperature Source Tympanic 10/07/18 11:55 Pulse 74 10/07/18 11:55 Pulse Rhythm Regular 10/07/18 12:10 Respiratory Rate 20 10/07/18 11:55 Respiratory Effort Incrsd Work of Breathing 10/06/18 20:49 Respiratory Depth Normal 10/07/18 12:10 Respiratory Pattern Normal 10/06/18 20:49 Blood Pressure 183/77 H 10/07/18 11:55 Blood Pressure Mean 114 09/30/18 04:46 Pulse Oximetry 92 L 10/07/18 11:55 Oxygen Delivery Method Room Air 10/07/18 11:55 Oxygen Flow Rate 0 10/07/18 11:55 Pain Level 0 10/07/18 03:12 Comment 10/05/18 07:50 Intake & Output 10/06/18 10/07/18 10/07/18 23:59 11:59 23:59 Intake Total 1703.5 / 2253.5 491.668 / 631.668 140.000 / 631.668 Balance 1703.5 / 1853.5 491.668 / 631.668 140.000 / 631.668 Intake: IV 243.5 / 313.5 1.668 / 141.668 140.000 / 141.668 Oral 1460 / 1940 490 / 490 Other: Comment pt voided and flushed. Stool Size Small Moderate Stool Characteristics Soft Soft Voiding Methods Toilet Laboratory Results WBC 13.44 k/cumm (4.4-10.8) H 10/07/18 06:23 RBC 4.73 m/cumm (4.00-5.20) 10/07/18 06:23 Hgb 14.0 g/dL (12.0-15.5) 10/07/18 06:23 Hct 42.6 % (36.0-46.0) 10/07/18 06:23 MCV 90.1 fL (80-95) 10/07/18 06:23 MCH 29.6 pg (27.0-33.0) 10/07/18 06:23 MCHC 32.9 g/dL (32.0-36.0) 10/07/18 06:23 RDW 13.0 % (11.7-14.6) 10/07/18 06:23 Plt Count 287 x1000/uL (130-400) 10/07/18 06:23 MPV 11.7 fL (8.0-11.0) H 10/07/18 06:23 Immature Gran % 1.9 10/07/18 06:23 Neutrophils % 84.9 10/07/18 06:23 Lymphocytes % 7.4 10/07/18 06:23 Atypical Lymphs % 2 10/03/18 06:30 Monocytes % 5.7 10/07/18 06:23 Eosinophils % 0.0 10/07/18 06:23 Basophils % 0.1 10/07/18 06:23 Absolute Neutrophils 11.41 k/cumm (1.2-6.7) H 10/07/18 06:23 Absolute Lymphocytes 0.99 k/cumm (1.2-3.4) L 10/07/18 06:23 Absolute Monocytes 0.77 k/cumm (0.11-0.7) H 10/07/18 06:23 Absolute Eosinophils 0.00 k/cumm (0.0-0.7) 10/07/18 06:23 Absolute Basophils 0.01 k/cumm (0.0-0.2) 10/07/18 06:23 Differential Comment Manual differential 10/03/18 06:30 RBC Morphology Normal 10/03/18 06:30 Sodium 141 mmol/L (136-145) 10/07/18 06:23 Potassium 4.4 mmol/L (3.5-5.1) 10/07/18 06:23 Chloride 103 mmol/L (98-107) 10/07/18 06:23 Carbon Dioxide 35.0 mmol/L (21.0-32.0) H 10/07/18 06:23 Anion Gap 3.0 mmol/L (3-11) 10/07/18 06:23 BUN 28 mg/dL (7-18) H 10/07/18 06:23 Creatinine 0.93 mg/dL (0.55-1.02) 10/07/18 06:23 Estimated GFR/1.73 m2 59.78 (mL/min/1.73m2) 10/07/18 06:23 Glucose 146 mg/dL (70-100) H 10/07/18 06:23 Hemoglobin A1c 6.1 % (4.5-6.2) 10/07/18 06:23 Calcium 8.8 mg/dL (8.5-10.1) 10/07/18 06:23 Magnesium 2.3 mg/dL (1.8-2.4) 10/07/18 06:23 Total Bilirubin 0.4 mg/dL (0.2-1.0) 09/30/18 05:50 AST 25 U/L (15-37) 09/30/18 05:50 ALT 20 U/L (12-78) 09/30/18 05:50 Alkaline Phosphatase 63 U/L (46-116) 09/30/18 05:50 Troponin I 0.02 ng/mL (0.00-0.06) 09/30/18 09:00 NT-Pro-B Natriuret Pep 342 pg/mL (-299) H 10/07/18 06:23 Total Protein 7.1 g/dL (6.4-8.2) 09/30/18 05:50 Albumin 3.5 g/dL (3.4-5.0) 09/30/18 05:50 TSH 0.91 uIU/mL (0.358-3.74) 09/30/18 05:50
--- NOTE | 2018-10-07 13:41 | OT.INIE ---
Occupational Therapy Notes Inpatient Occupational Therapy Evaluation Date: 10/07/18 Referring Doctor:Maria Alejandra Calix MD OT Orders: Eval and treat Precautions: Standard PATIENT PROFILE/ADMITTING DIAGNOSIS: Pt is a 67 year old female admitted to [facility] on 10/06/18 for COPD exacerbation. Past Medical History: Anxiety, SLE, Peti mal Epilepsy, CAD, DVT prophylaxis (on Lovenox), ADHD, NSTEMI with history of ankle surgery Current Functional Limitations: Use of O2 nasal canal for functional activities, decreased functional activity tolerance, decreased (I) in standing ADLs due to breathing limitations. Social History/Home Situation: Pt reports that she lives in a 1 level home with her 3 sons, 5 children total. She states that she currently performed all of her ADLs/IADLs (I). She recently had her home renovated to include a walk in shower with shower bench and grab bars. She reports that she uses a toilet for toileting routine and is (I) in cooking. Her sons (A) as needed. They are (I) with their own self care. Equipment owned/DME: None. SUBJECTIVE: Pt was sitting in chair when OT arrived. She was agreeable to OT consult although states that someone has been in the room consistently since 5:30 this morning and she is tired. OBJECTIVE: General Observation: O2 nasal canal, IV (R) UE being attached during OT consult. Mental Status: A&Ox3 Pain: no c/o pain ROM: RUE AROM WNL L UE AROM WNL STRENGTH: RUE Shoulder flexion 4/5, elbow 4+/5, loss prevention specialist is strong and symmetrical LUE Shoulder flexion 4/5, elbow 4+/5, loss prevention specialist is strong and symmetrical FUNCTIONAL MOBILITY/ADLS: BATHING Performed prior to OT consult DRESSING Performed prior to OT consult GROOMING Performed prior to OT consult TOILETING (I) on toilet EATING NT BALANCE: Static sitting Normal Dynamic Sitting Normal Static Standing Normal Dynamic Standing Normal SPECIAL TESTS: Daily Activity Limitations Standardized Measure [facility] AM -PAC ?6 clicks? Daily Activity Inpatient Short Form: Raw score: 21 Standardized score: 44.27 CMS score: 32.79% INFORMED CONSENT/EDUCATION: Pt instructed in purpose of OT Consult and plan of care. ASSESSMENT: Patient is a 67-year-old female referred to occupational therapy services with diagnosis of COPD exacerbation. Patient presents with clinical signs and symptoms consistent with dx, as demonstrated by the following impairment level findings/functional limitations: decreased (I) in functional activity tolerance, decreased (I) in standing ADLs, Pt is unable to perform ADLs at PLOF. AMPAC score 21, CMS score 32.79% Patient is assessed as a Moderate 70101 complexity based on the following: History: See Above Examination: See Above Presentation: Evolving Decision Making: AMPAC score 21, CMS score 32.79% GOALS Goals x1 week in hospital setting 1. Transfers (I) 2. Dressing Sitting position (I) UE clothing, in standing (I) LE clothing. 3. Bathing Standing at the sink for face, (I) in shower for UE/LE 4. Grooming standing at sink (I) teeth and hair brushing PLAN OF CARE/TREATMENT PLAN: 1x/day, 5 days/ week x 1week Initiate Occupational Therapy Services for bathing, dressing, grooming, toileting, eating, transfer training. DISCHARGE RECOMMENDATIONS Home when medically cleared per MD with her 3 sons. Home O2 which is currently being managed per healthcare economics manager TREATMENT TIME/MINUTES/CODES 83360, 30 minutes (10:50) Yen Barger OTR/[facility]
--- NOTE | 2018-10-07 13:56 | OTIE_ITS ---
Occupational Therapy Notes Inpatient Occupational Therapy Evaluation Date: 10/07/18 Referring Doctor:Maria Alejandra Calix MD OT Orders: Eval and treat Precautions: Standard PATIENT PROFILE/ADMITTING DIAGNOSIS: Pt is a 67 year old female admitted to [facility] on 10/06/18 for COPD exacerbation. Past Medical History: Anxiety, SLE, Peti mal Epilepsy, CAD, DVT prophylaxis (on Lovenox), ADHD, NSTEMI with history of ankle surgery Current Functional Limitations: Use of O2 nasal canal for functional activities, decreased functional activity tolerance, decreased (I) in standing ADLs due to breathing limitations. Social History/Home Situation: Pt reports that she lives in a 1 level home with her 3 sons, 5 children total. She states that she currently performed all of her ADLs/IADLs (I). She recently had her home renovated to include a walk in shower with shower bench and grab bars. She reports that she uses a toilet for toileting routine and is (I) in cooking. Her sons (A) as needed. They are (I) with their own self care. Equipment owned/DME: None. SUBJECTIVE: Pt was sitting in chair when OT arrived. She was agreeable to OT consult although states that someone has been in the room consistently since 5:30 this morning and she is tired. OBJECTIVE: General Observation: O2 nasal canal, IV (R) UE being attached during OT consult. Mental Status: A&Ox3 Pain: no c/o pain ROM: RUE AROM WNL L UE AROM WNL STRENGTH: RUE Shoulder flexion 4/5, elbow 4+/5, job placement specialist is strong and symmetrical LUE Shoulder flexion 4/5, elbow 4+/5, job placement specialist is strong and symmetrical FUNCTIONAL MOBILITY/ADLS: BATHING Performed prior to OT consult DRESSING Performed prior to OT consult GROOMING Performed prior to OT consult TOILETING (I) on toilet EATING NT BALANCE: Static sitting Normal Dynamic Sitting Normal Static Standing Normal Dynamic Standing Normal SPECIAL TESTS: Daily Activity Limitations Standardized Measure [facility] AM -PAC ?6 clicks? Daily Activity Inpatient Short Form: Raw score: 21 Standardized score: 44.27 CMS score: 32.79% INFORMED CONSENT/EDUCATION: Pt instructed in purpose of OT Consult and plan of care. ASSESSMENT: Patient is a 67-year-old female referred to occupational therapy services with diagnosis of COPD exacerbation. Patient presents with clinical signs and symptoms consistent with dx, as demonstrated by the following impairme nt level findings/functional limitations: decreased (I) in functional activity tolerance, decreased (I) in standing ADLs, Pt is unable to perform ADLs at PLOF. AMPAC score 21, CMS score 32.79% Patient is assessed as a Moderate 10286 complexity based on the following: History: See Above Examination: See Above Presentation: Evolving Decision Making: AMPAC score 21, CMS score 32.79% GOALS Goals x1 week in hospital setting 1. Transfers (I) 2. Dressing Sitting position (I) UE clothing, in standing (I) LE clothing. 3. Bathing Standing at the sink for face, (I) in shower for UE/LE 4. Grooming standing at sink (I) teeth and hair brushing PLAN OF CARE/TREATMENT PLAN: 1x/day, 5 days/ week x 1week Initiate Occupational Therapy Services for bathing, dressing, grooming, toileting, eating, transfer training. DISCHARGE RECOMMENDATIONS Home when medically cleared per MD with her 3 sons. Home O2 which is currently being managed per child care aide TREATMENT TIME/MINUTES/CODES 99965, 30 minutes (10:50) Yen Barger OTR/[facility]
--- NOTE | 2018-10-07 15:14 | CHAPLAIN ---
I have visited with Thanh a few times during this admission, and today she seem less relaxed than during other visits. Her daughter visited from [place] and spent the night here with her. Thanh didn't have her oxygen on at the time I was visiting, but said she was concerned that she wasn't feeling much better. I left when her nurse and PT arrived. Thanh is Restorationism although no longer attending [employer]. We have had conversations in the past about her paige and he spiritual beliefs.
--- NOTE | 2018-10-07 16:09 | PT.INTREAT ---
Date of service: 10/07/18 Time of Service: 14:20 PT Notes Inpatient Physical Therapy Treatment Note [facility] Date: 10/07/2018 PRECAUTIONS: Fall. Standard. On continuous oxygen at 1 L/min. SUBJECTIVE: Patient was seen today for her second session sitting on her chair without her oxygen cannula on. Patient was requested to have cannula on for exercises and to maintain normal oxygen levels. OBJECTIVE: PAIN: 0/10 BED MOBILITY/TRANSFERS Sit-stand: SBA Stand-sit: SBA Bed-Chair: SBA Chair-bed: SBA THEREX: Reviewed and retrained with chest expansion activities coordinated with deep breathing exercises as noted in flow sheet. Reinforced use of incentive spirometer to improve respiratory function. ASSESSMENT: Patient demonstrated improved mastery of breathing exercises. She needed to rest in between activity due to limited tolerance. PLAN: Continue to follow PT POC as established today. TREATMENT CODE/TIME: 48563 15 minutes (14:20)
[2018-10-07] MEDS: Gabapentin 300 MG CAP 600 MG PO (18:12)
[2018-10-07] MEDS: Atorvastatin 40 MG TAB 80 MG PO (19:05)
[2018-10-07] MEDS: Ipratropium/Albuterol 4 GM 120 PUFF INH IH (23:39)
[2018-10-08] VITALS (13 sets, daily range): BP systolic 144–163; BP diastolic 71–85; PULSE 71–92; RESP 4–24; TEMP 36.6–37.3; O2SAT 87–99
[2018-10-08] MEDS: Normal Saline Flush 10 ML SYR IVP ×7 (02:54→22:30)
[2018-10-08] MEDS: Albuterol/Ipratropium 3 ML UPD VIAL UPD ×5 (02:55→17:42)
[2018-10-08] MEDS: methylPREDNISolone SUCC 40 MG VIAL 60 MG IVP ×3 (02:55→18:22)
[2018-10-08] MEDS: Levothyroxine 50 MCG TAB PO (06:47)
[2018-10-08 07:21] LABS: Abs Immature Grans 0.42 k/cumm (0.0-0.09); HCT 42.5 % (36.0-46.0); HGB 13.8 g/dL (12.0-15.5); Mean Corp. HGB Concentration 32.5 g/dL (32.0-36.0); Mean Corpuscular Hemoglobin 29.2 pg (27.0-33.0); Mean Platelet Volume 11.7 fL (8.0-11.0); Platelet Count 282 x1000/uL (130-400); RBC 4.72 m/cumm (4.00-5.20); RBC Distribution Width 13.3 % (11.7-14.6); White Blood Cell Count 14.94 k/cumm (4.4-10.8)
[2018-10-08] MEDS: Triamterene 37.5/HCTZ 25 CAP PO (07:35)
[2018-10-08 07:36] LABS: Anion Gap 3.6 mmol/L (3-11); BUN 31 mg/dL (7-18); CO2 34.4 mmol/L (21.0-32.0); CREATININE 0.88 mg/dL (0.55-1.02); Calcium 8.4 mg/dL (8.5-10.1); Chloride 101 mmol/L (98-107); Glucose 149 mg/dL (70-100); Potassium 4.1 mmol/L (3.5-5.1); Sodium 139 mmol/L (136-145)
[2018-10-08 08:14] LABS: Absolute Lymphocyte Count 1.05 k/cumm (1.2-3.4); Absolute Neutrophil Count 12.55 k/cumm (1.2-6.7)
[2018-10-08 08:15] LABS: Diff Comment Manual Differential; RBC Morphology Normal
[2018-10-08] MEDS: Citalopram 20 MG TAB 40 MG PO (08:29)
[2018-10-08] MEDS: Lactobacillus Acidophilus CAP 1 CAP PO ×3 (08:30→20:39)
[2018-10-08] MEDS: Metoprolol CR 25 MG TABCR PO (08:30)
[2018-10-08] MEDS: Gabapentin 300 MG CAP PO (08:30)
[2018-10-08] MEDS: Aspirin E.C. 81 MG TABEC PO (08:32)
[2018-10-08] MEDS: Pantoprazole 40 MG TABCR PO (08:33)
[2018-10-08] MEDS: Lisinopril 5 MG TAB 2.5 MG PO (08:33)
[2018-10-08] MEDS: Hydroxychloroquine 200 MG TAB PO (08:33)
[2018-10-08] MEDS: Enoxaparin 40 MG/0.4 ML SYR SC (08:35)
[2018-10-08] MEDS: Insulin Aspart 300 UNITS/3 ML PEN SC ×3 (08:35→22:30)
[2018-10-08] MEDS: Ipratropium/Albuterol 4 GM 120 PUFF INH IH ×2 (09:26→18:37)
[2018-10-08] MEDS: Budesonide/Formoterol 80/4.5 6.9 GM 60 PUFF INH IH ×2 (09:28→20:41)
--- NOTE | 2018-10-08 09:51 | PDOC.CMPRO ---
Care Management Progress Note S/O: Thanh continues to be closely monitored and has continued to require O2-RT will inform if she will require upon discharge and coordinate accordingly. She was having a new IV placed when CM enterd the room. Per MD, she continues to have expiratory wheezes and her steroids were increased. CM will continue to follow. A: 67 year old female admitted to [facility] 09/30/18 for COPD Exacerbation P: Thanh will return home when ready per MD. She will follow up with her PCP and plan of care as prescribed. CM will continue to follow; anticipate Thanh will follow up with Pulmonary Rehab and may have new orders for home O2 per RT. Thanh will transport home via private vehicle with one of her children vs. [facility].
--- NOTE | 2018-10-08 09:54 | CMPROGNOTE_ITS ---
Care Management Progress Note S/O: Thanh continues to be closely monitored and has continued to require O2-RT will inform if she will require upon discharge and coordinate accordingly. She was having a new IV placed when CM enterd the room. Per MD, she continues to have expiratory wheezes and her steroids were increased. CM will continue to follow. A: 67 year old female admitted to [facility] 09/30/18 for COPD Exacerbation P: Thanh will return home when ready per MD. She will follow up with her PCP and plan of care as prescribed. CM will continue to follow; anticipate Thanh will follow up with Pulmonary Rehab and may have new orders for home O2 per RT. Thanh will transport home via private vehicle with one of her children vs. [facility].
--- NOTE | 2018-10-08 10:33 | PT.INTREAT ---
Date of service: 10/08/18 Time of Service: 10:02 PT Notes Inpatient Physical Therapy Treatment Note [facility] Date: 10/08/2018 PRECAUTIONS: Fall. Standard. On continuous oxygen at 2 L/min. SUBJECTIVE: Patient was seen today for her second session sitting on the edge of her bed with oxygen nasal cannula on and running. She states she is anxious about her situation, that she does not want to go home using oxgen forever. I feel like my voice trembles especially at night. She is agreeable to a PT session this morning. OBJECTIVE: PAIN: Denies pain. 0/10. BED MOBILITY/TRANSFERS Supine-sit:SBA Sit to supine: SBA Sit to stand: SBA Satnd to sit: SBA Bed-Chair: SBA Chair-bed: SBA GAIT: Patient completed approximately 80-90 feet without use of of an assistive device at 2 L of continuous oxygen with oxygen saturation staying at 95%. Blood pressure was 169/72 mmHg after gait activity. THERAEX: Reviewed and retrained with chest expansion activities coordinated with deep breathing exercises as noted in flow sheet. Reinforced use of incentive spirometer to improve respiratory function. ASSESSMENT: Patient demonstrates improved tolerance for ambulation and complained of no dizziness nor pain throughout session. She needed to rest at about 50-60 feet in between activity due to limited tolerance. PLAN: Continue to implement PT POC as established previously. TREATMENT CODE/TIME: 39389 31 minutes (10:02)
[2018-10-08] MEDS: DOXYCYCLINE 100 MG in Normal Saline 100 ML IVPB ×2 (10:36→22:33)
[2018-10-08] MEDS: Normal Saline 500 ML 20 ML IV (10:36)
--- NOTE | 2018-10-08 10:48 | OT.INTREAT ---
Date of service: 10/08/18 Time of Service: 08:10 Occupational Therapy Notes Occupational Therapy Inpatient Treatment Note Date: 10/08/18 PRECAUTIONS: Fall, standard SUBJECTIVE: Pt was sitting on the side of her bed with her daughter present in the room. Pt states she has had people consistently in her room since the clinical pharmacy specialist. OBJECTIVE: PAIN:no c/o pain FUNCTIONAL MOBILITY Sit-stand: S, O2 nasal cannula Stand-sit: S, O2 nasal cannula BATHING: Performed prior to OT arrival with nursing DRESSING: Performed prior to OT arrival with nursing GROOMING: Sitting on side of her bed, (I) with brushing her hair. TOILETING: Device: Toilet Assist: (I) ASSESSMENT: Pt performed most of her ADLs prior to OT arrival with nursing which decreased training available for ADLs. Pt reports that she is feeling better and that she continues to require O2 nasal cannula at this time. PLAN: Progression of ADLs with increased functional activity tolerance. TREATMENT CODES/TIME: [id number], 10 minutes (08:10) MUNIRA Benavidez/[facility]
--- NOTE | 2018-10-08 10:55 | OTTR_ITS ---
Date of service: 10/08/18 Time of Service: 08:10 Occupational Therapy Notes Occupational Therapy Inpatient Treatment Note Date: 10/08/18 PRECAUTIONS: Fall, standard SUBJECTIVE: Pt was sitting on the side of her bed with her daughter present in the room. Pt states she has had people consistently in her room since the sour bleaching pleater. OBJECTIVE: PAIN:no c/o pain FUNCTIONAL MOBILITY Sit-stand: S, O2 nasal cannula Stand-sit: S, O2 nasal cannula BATHING: Performed prior to OT arrival with nursing DRESSING: Performed prior to OT arrival with nursing GROOMING: Sitting on side of her bed, (I) with brushing her hair. TOILETING: Device: Toilet Assist: (I) ASSESSMENT: Pt performed most of her ADLs prior to OT arrival with nursing which decreased training available for ADLs. Pt reports that she is feeling better and that she continues to require O2 nasal cannula at this time. PLAN: Progression of ADLs with increased functional activity tolerance. TREATMENT CODES/TIME: [id number], 10 minutes (08:10) MUNIRA Benavidez/[facility]
--- NOTE | 2018-10-08 13:36 | PT.INTREAT ---
Date of service: 10/08/18 Time of Service: 13:36 PT Notes Inpatient Physical Therapy Treatment Note [facility] Date: 10/08/18 PRECAUTIONS: Activity as tolerated SUBJECTIVE: Thanh states that she is feeling better today, she is looking forward to when she is able to go home. OBJECTIVE: PAIN: No c/o pain BED MOBILITY/TRANSFERS Sit-stand: S Stand-sit: S GAIT Assistive Device: No AD Weight bearing: Full Assist: S Distance: 200' Deviation: Seated rest x1 VITALS: SaO2: 94-96% on 2L O2 via NC with gait training; 90-96% on RA with gait training THEREX: Patient completed NuStep biking times 7 minutes with minimal supervision on 2L O2 via NC. STAIRS: Up/down 3x4 and 2x6 using a step over pattern without upper extremity support, with supervision. ASSESSMENT: Patient tolerated session with some complaints of SOB although maintained > 89% SaO2 on both 2L O2 and RA with activity. Patient would benefit from continued gait training and strengthening for improved cardiovascular endurance. PLAN: Continue with PTs POC TREATMENT CODE/TIME: Session 1: 30 minutes; [id number] x2
--- NOTE | 2018-10-08 13:42 | PTTR_ITS ---
Date of service: 10/08/18 Time of Service: 13:36 PT Notes Inpatient Physical Therapy Treatment Note [facility] Date: 10/08/18 PRECAUTIONS: Activity as tolerated SUBJECTIVE: Thanh states that she is feeling better today, she is looking fo rward to when she is able to go home. OBJECTIVE: PAIN: No c/o pain BED MOBILITY/TRANSFERS Sit-stand: S Stand-sit: S GAIT Assistive Device: No AD Weight bearing: Full Assist: S Distance: 200' Deviation: Seated rest x1 VITALS: SaO2: 94-96% on 2L O2 via NC with gait training; 90-96% on RA with gait training THEREX: Patient completed NuStep biking times 7 minutes with minimal supervision on 2L O2 via NC. STAIRS: Up/down 3x4 and 2x6 using a step over pattern without upper extremity support, with supervision. ASSESSMENT: Patient tolerated session with some complaints of SOB although maintained > 89% SaO2 on both 2L O2 and RA with activity. Patient would benefit from continued gait training and strengthening for improved cardiovascular endurance. PLAN: Continue with PTs POC TREATMENT CODE/TIME: Session 1: 30 minutes; [id number] x2
[2018-10-08] MEDS: Gabapentin 300 MG CAP 600 MG PO (18:21)
--- NOTE | 2018-10-08 18:43 | PGE_ITS ---
Date of Service Date of service: 10/08/18 Time of Service: 15:30 Assessment and Plan (1) COPD exacerbation: Current visit: Yes Status: Acute PFT's in 2015: severe COPD. At this time, singificantly better. Not requiring oxygen. Continue doxycycline and rocephin. Tapering steroids. Continue nebs, steroids, symbicort. No evidence of PE on CTA. (2) Vocal cord dysfunction: Current visit: Yes Status: Suspected Will need outpatient ENT follow up. (3) Anxiety: Current visit: No Status: Chronic Continue ativan BID PRN. Verified with [facility] - this is her outpatient dosing. 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 Continue gabapentin. (6) CAD (coronary artery disease), [place] coronary artery: Current visit: Yes Status: Chronic stable; no evidence of ACS at this time. No change in tx. (7) DVT prophylaxis: Current visit: Yes Status: Acute Lovenox (8) Discharge planning issues: Current visit: Yes Status: Acute Full code Not requiring oxygen today. Will reassess on ambulation. Will need pulmonary rehab on discharge. Anticipate discharge in 48 hours. Patient is improving and, though her LOS is prolonged, would not benefit from transfer to or any additional services that a tertiary care facility could offer over what [facility] is able to provide at this time. Subjective Interval history since last seen: I'm doing better! She states she still has a productive cough, but that it's easier to bring up phlegm. She states she hears herself wheeze, but less. Denies dizziness, chest pain, nausea, vomiting. Wondering about going home. She states she has never been told that she might have a vocal cord problem, but admits to having a shaky voice. She has never seen an ENT. She does have a history of smoking. I spoke with her that I thought she might be having a little bit of a vocal cord spasm and that on discharge she would have to see ENT. Exam Narrative Exam Narrative: General: Middle aged female, sitting comfortably in a chair, much less anxious, looks better, on room air. HEENT: EOMI, MMM Heart: RRR, no m/r/g Lungs: quietly wheezing on expiration B. Importantly, I heard more of a wheeze in her neck, especially on the left side. GI: abdomen is soft, nontender, nondistended Extremities: no edema, clubbing, or cyanosis of BLE's Objective Objective Clinical Data: Abnormal lab results 10/08/18 10/08/18 Range/Units 06:16 06:16 WBC 14.94 H (4.4-10.8) k/cumm MPV 11.7 H (8.0-11.0) fL Absolute Neutrophils 12.55 H (1.2-6.7) k/cumm Absolute Lymphocytes 1.05 L (1.2-3.4) k/cumm Absolute Monocytes 1.20 H (0.11-0.7) k/cumm Carbon Dioxide 34.4 H (21.0-32.0) mmol/L BUN 31 H (7-18) mg/dL Glucose 149 H (70-100) mg/dL Calcium 8.4 L (8.5-10.1) mg/dL Vital Signs Temperature 36.8 C 10/08/18 18:04 Temperature Source Tympanic 10/08/18 18:04 Pulse 80 10/08/18 18:04 Pulse Rhythm Regular 10/08/18 09:25 Respiratory Rate 20 10/08/18 18:04 Respiratory Effort 10/08/18 09:25 Respiratory Depth Shallow 10/08/18 09:25 Respiratory Pattern Normal 10/08/18 09:25 Blood Pressure 163/77 H 10/08/18 18:04 Blood Pressure Mean 114 09/30/18 04:46 Pulse Oximetry 94 L 10/08/18 18:04 Oxygen Delivery Method Room Air 10/08/18 18:04 Oxygen Flow Rate 0 10/08/18 18:04 Pain Level 0 10/08/18 11:45 Comment 10/08/18 11:45 Intake & Output 10/07/18 10/08/18 10/08/18 23:59 11:59 23:59 Intake Total 543.333 / 1085.001 580 / 1360 780 / 1360 Balance 543.333 / 1085.001 580 / 1360 780 / 1360 Weight 67.2 kg Intake: IV 303.333 / 355.001 120 / 120 Oral 240 / 730 460 / 1240 780 / 1240 Other: Urine Appearance Clear Comment pt voiding independently in the bathroom VOIDS INDEP IN BR.,UP AT THIS TIME TO BR Stool Size Moderate Stool Characteristics Soft Voiding Methods Toilet Toilet Laboratory Results WBC 14.94 k/cumm (4.4-10.8) H 10/08/18 06:16 RBC 4.72 m/cumm (4.00-5.20) 10/08/18 06:16 Hgb 13.8 g/dL (12.0-15.5) 10/08/18 06:16 Hct 42.5 % (36.0-46.0) 10/08/18 06:16 MCV 90.0 fL (80-95) 10/08/18 06:16 MCH 29.2 pg (27.0-33.0) 10/08/18 06:16 MCHC 32.5 g/dL (32.0-36.0) 10/08/18 06:16 RDW 13.3 % (11.7-14.6) 10/08/18 06:16 Plt Count 282 x1000/uL (130-400) 10/08/18 06:16 MPV 11.7 fL (8.0-11.0) H 10/08/18 06:16 Immature Gran % See Differential 10/08/18 06:16 Neutrophils % 84.0 10/08/18 06:16 Lymphocytes % 7.0 10/08/18 06:16 Atypical Lymphs % 2 10/03/18 06:30 Monocytes % 8.0 10/08/18 06:16 Eosinophils % 0.0 10/08/18 06:16 Basophils % 0.0 10/08/18 06:16 Metamyelocytes % 1.0 % 10/08/18 06:16 Absolute Neutrophils 12.55 k/cumm (1.2-6.7) H 10/08/18 06:16 Absolute Lymphocytes 1.05 k/cumm (1.2-3.4) L 10/08/18 06:16 Absolute Monocytes 1.20 k/cumm (0.11-0.7) H 10/08/18 06:16 Absolute Eosinophils 0.00 k/cumm (0.0-0.7) 10/08/18 06:16 Absolute Basophils 0.00 k/cumm (0.0-0.2) 10/08/18 06:16 Differential Comment Manual differential 10/08/18 06:16 RBC Morphology Normal 10/08/18 06:16 Sodium 139 mmol/L (136-145) 10/08/18 06:16 Potassium 4.1 mmol/L (3.5-5.1) 10/08/18 06:16 Chloride 101 mmol/L (98-107) 10/08/18 06:16 Carbon Dioxide 34.4 mmol/L (21.0-32.0) H 10/08/18 06:16 Anion Gap 3.6 mmol/L (3-11) 10/08/18 06:16 BUN 31 mg/dL (7-18) H 10/08/18 06:16 Creatinine 0.88 mg/dL (0.55-1.02) 10/08/18 06:16 Estimated GFR/1.73 m2 >= 60.00 (mL/min/1.73m2) 10/08/18 06:16 Glucose 149 mg/dL (70-100) H 10/08/18 06:16 Hemoglobin A1c 6.1 % (4.5-6.2) 10/07/18 06:23 Calcium 8.4 mg/dL (8.5-10.1) L 10/08/18 06:16 Magnesium 2.0 mg/dL (1.8-2.4) 10/08/18 06:16 Total Bilirubin 0.4 mg/dL (0.2-1.0) 09/30/18 05:50 AST 25 U/L (15-37) 09/30/18 05:50 ALT 20 U/L (12-78) 09/30/18 05:50 Alkaline Phosphatase 63 U/L (46-116) 09/30/18 05:50 Troponin I 0.02 ng/mL (0.00-0.06) 09/30/18 09:00 NT-Pro-B Natriuret Pep 342 pg/mL (-299) H 10/07/18 06:23 Total Protein 7.1 g/dL (6.4-8.2) 09/30/18 05:50 Albumin 3.5 g/dL (3.4-5.0) 09/30/18 05:50 TSH 0.91 uIU/mL (0.358-3.74) 09/30/18 05:50
[2018-10-08] MEDS: Atorvastatin 40 MG TAB 80 MG PO (20:39)
[2018-10-08] MEDS: LORazepam 1 MG TAB PO (20:40)
[2018-10-09] MEDS: methylPREDNISolone SUCC 40 MG VIAL IVP ×2 (02:10→10:36)
[2018-10-09] MEDS: Normal Saline Flush 10 ML SYR IVP ×3 (02:10→10:36)
[2018-10-09 04:34] VITALS: BP 150/76; PULSE 80; RESP 18; TEMP 36.8; O2SAT 93
[2018-10-09 06:36] VITALS: RESP 4
[2018-10-09] MEDS: Albuterol/Ipratropium 3 ML UPD VIAL UPD ×3 (06:36→16:06)
[2018-10-09] MEDS: Levothyroxine 50 MCG TAB PO (06:36)
[2018-10-09 07:01] LABS: HGB 14.2 g/dL (12.0-15.5); Mean Corpuscular Hemoglobin 29.8 pg (27.0-33.0); Mean Corpuscular Volume 90.3 fL (80-95); Mean Platelet Volume 11.5 fL (8.0-11.0); Platelet Count 295 x1000/uL (130-400); RBC 4.76 m/cumm (4.00-5.20); RBC Distribution Width 13.3 % (11.7-14.6); White Blood Cell Count 16.69 k/cumm (4.4-10.8)
[2018-10-09 07:08] LABS: Anion Gap 4.5 mmol/L (3-11); BUN 28 mg/dL (7-18); CO2 33.5 mmol/L (21.0-32.0); CREATININE 0.93 mg/dL (0.55-1.02); Calcium 8.4 mg/dL (8.5-10.1); Chloride 102 mmol/L (98-107); Estimated GFR 59.78 (mL/min/1.73m2); Glucose 142 mg/dL (70-100); Magnesium 2.2 mg/dL (1.8-2.4); Potassium 4.2 mmol/L (3.5-5.1); Sodium 140 mmol/L (136-145)
[2018-10-09 07:36] LABS: Absolute Lymphocyte Count 1.67 k/cumm (1.2-3.4); Absolute Monocyte Count 1.17 k/cumm (0.11-0.7); Absolute Neutrophil Count 13.35 k/cumm (1.2-6.7)
[2018-10-09 07:37] LABS: Diff Comment Manual Differential; RBC Morphology Normal
[2018-10-09 07:50] VITALS: O2SAT 92
[2018-10-09] MEDS: Budesonide/Formoterol 80/4.5 6.9 GM 60 PUFF INH IH (07:50)
[2018-10-09 08:18] VITALS: BP 182/79; PULSE 75; RESP 20; TEMP 36.8; O2SAT 92
[2018-10-09] MEDS: Pantoprazole 40 MG TABCR PO (09:33)
[2018-10-09] MEDS: Triamterene 37.5/HCTZ 25 CAP PO (09:33)
[2018-10-09] MEDS: Aspirin E.C. 81 MG TABEC PO (09:33)
[2018-10-09] MEDS: LORazepam 1 MG TAB PO (09:33)
[2018-10-09] MEDS: Gabapentin 300 MG CAP PO (09:33)
[2018-10-09] MEDS: Lactobacillus Acidophilus CAP 1 CAP PO (09:33)
[2018-10-09] MEDS: Hydroxychloroquine 200 MG TAB PO (09:33)
[2018-10-09] MEDS: Citalopram 20 MG TAB 40 MG PO (09:33)
[2018-10-09] MEDS: Enoxaparin 40 MG/0.4 ML SYR SC (09:34)
[2018-10-09] MEDS: Metoprolol CR 25 MG TABCR PO (09:34)
[2018-10-09] MEDS: Lisinopril 5 MG TAB 2.5 MG PO (09:34)
--- NOTE | 2018-10-09 09:41 | PDOC.CMDIS ---
LACE Index Scoring Tool - Questions: Length of Stay (in days): 7 - 13 Acuity (Admit via E.D.?): Yes Comorbidities: Chronic Pulmonary Disease E.D. Visits: 5 - Answers: Total Score: 14 Risk of Readmission: High Risk Care Management Discharge Reason for Hospitalization: COPD Exacerbation Discharge Plan: Thanh will return home when ready per MD. She will follow up with her PCP and plan of care as prescribed. She will have new O2 through [facility] per RT and will follow up with Pulmonary Rehab and transport home via private vehicle with one of her children. Patient/Family Education Needs: Review discharge instructions, discuss Ask Me Three. Services Needed at Discharge: Oxygen Therapy ([facility]; coordinated by RT), Respiratory Therapy ([facility] Pulmonary Re[facility] ), Respiratory Care Services (Pulmonary Rehab)
--- NOTE | 2018-10-09 09:56 | CMDISCH_ITS ---
LACE Index Scoring Tool - Questions: Length of Stay (in days): 7 - 13 Acuity (Admit via E.D.?): Yes Comorbidities: Chronic Pulmonary Disease E.D. Visits: 5 - Answers: Total Score: 14 Risk of Readmission: High Risk Care Management Discharge Reason for Hospitalization: COPD Exacerbation Discharge Plan: Thanh will return home when ready per MD. She will follow up with her PCP and plan of care as prescribed. She will have new O2 through [facility] per RT and will follow up with Pulmonary Rehab and transport home via private vehicle with one of her children. Patient/Family Education Needs: Review discharge instructions, discuss Ask Me Three. Services Needed at Discharge: Oxygen Therapy ([facility]; coordinated by RT), Respiratory Therapy ([facility] Pulmonary Rehab ), Respiratory Care Services (Pulmonary Rehab)
--- NOTE | 2018-10-09 10:18 | OT.INDS ---
Date of service: 10/09/18 Time of Service: 09:35 Occupational Therapy Notes Occupational Therapy Inpatient Discharge Summary Dates of Service: 10/07/18-10/09/18 Date: 10/09/18 Referring Doctor:Maria Alejandra Calix MD OT Orders: Eval and treat Precautions: Standard PATIENT PROFILE/ADMITTING DIAGNOSIS: Pt is a 67 year old female admitted to [facility] on 10/06/18 for COPD exacerbation. Past Medical History: Anxiety, SLE, Peti mal Epilepsy, CAD, DVT prophylaxis (on Lovenox), ADHD, NSTEMI with history of ankle surgery Social History/Home Situation: Pt reports that she lives in a 1 level home with her 3 sons, 5 children total. She states that she currently performed all of her ADLs/IADLs (I). She recently had her home renovated to include a walk in shower with shower bench and grab bars. She reports that she uses a toilet for toileting routine and is (I) in cooking. Her sons (A) as needed. They are (I) with their own self care. Equipment owned/DME: None. SUBJECTIVE: Pt was sitting on side of bed when OT arrived. She reports that she is nervous about going home due to her anxiety with her breathing but also states that she wants to go home. OBJECTIVE: Pain: no c/o pain ROM: RUE AROM WNL L UE AROM WNL STRENGTH: RUE Shoulder flexion 5/5, elbow 4+/5, traffic court referee is strong and symmetrical LUE Shoulder flexion 5/5, elbow 4+/5, traffic court referee is strong and symmetrical FUNCTIONAL MOBILITY/ADLS: BATHING (I) standing at sink. DRESSING (I) donning and doffing street clothes UE/LE GROOMING (I) standing at sink for hair and teeth TOILETING (I) on toilet EATING (I) BALANCE: Static sitting Normal Dynamic Sitting Normal Static Standing Normal Dynamic Standing Normal ASSESSMENT: Patient is a 67-year-old female referred to occupational therapy services with diagnosis of COPD exacerbation. Pt was seen for 3 skilled OT sessions. She is (I) with all ADLs at this time and has met all skilled OT goals. OT recommends that pt be discharged home when medically cleared per MD. GOALS 1. Transfers (I) (MET) 2. Dressing Sitting position (I) UE clothing, in standing (I) LE clothing (MET) 3. Bathing Standing at the sink for face, (I) in shower for UE/LE (MET) 4. Grooming standing at sink (I) teeth and hair brushing (MET) PLAN OF CARE/TREATMENT PLAN: Discharge from skilled OT services. DISCHARGE RECOMMENDATIONS Home when medically cleared per MD with her 3 sons. TREATMENT TIME/MINUTES/CODES [id number], 30 minutes (09:35) Yen Barger OTR/[facility]
--- NOTE | 2018-10-09 10:24 | OTDS_ITS ---
Date of service: 10/09/18 Time of Service: 09:35 Occupational Therapy Notes Occupational Therapy Inpatient Discharge Summary Dates of Service: 10/07/18-10/09/18 Date: 10/09/18 Referring Doctor:Maria Alejandra Calix MD OT Orders: Eval and treat Precautions: Standard PATIENT PROFILE/ADMITTING DIAGNOSIS: Pt is a 67 year old female admitted to [facility] on 10/06/18 for COPD exacerbation. Past Medical History: Anxiety, SLE, Peti mal Epilepsy, CAD, DVT prophylaxis (on Lovenox), ADHD, NSTEMI with history of ankle surgery Social History/Home Situation: Pt reports that she lives in a 1 level home with her 3 sons, 5 children total. She states that she currently performed all of her ADLs/IADLs (I). She recently had her home renovated to include a walk in shower with shower bench and grab bars. She reports that she uses a toilet for toileting routine and is (I) in cooking. Her sons (A) as needed. They are (I) with their own self care. Equipment owned/DME: None. SUBJECTIVE: Pt was sitting on side of bed when OT arrived. She reports that she is nervous about going home due to her anxiety with her breathing but also states that she wants to go home. OBJECTIVE: Pain: no c/o pain ROM: RUE AROM WNL L UE AROM WNL STRENGTH: RUE Shoulder flexion 5/5, elbow 4+/5, cadmium plater is strong and symmetrical LUE Shoulder flexion 5/5, elbow 4+/5, cadmium plater is strong and symmetrical FUNCTIONAL MOBILITY/ADLS: BATHING (I) standing at sink. DRESSING (I) donning and doffing street clothes UE/LE GROOMING (I) standing at sink for hair and teeth TOILETING (I) on toilet EATING (I) BALANCE: Static sitting Normal Dynamic Sitting Normal Static Standing Normal Dynamic Standing Normal ASSESSMENT: Patient is a 67-year-old female referred to occupational therapy services with diagnosis of COPD exacerbation. Pt was seen for 3 skilled OT sessions. She is (I) with all ADLs at this time and has met all skilled OT goals. OT recommends that pt be discharged home when medically cleared per MD. GOALS 1. Transfers (I) (MET) 2. Dressing Sitting position (I) UE clothing, in standing (I) LE clothing (MET) 3. Bathing Standing at the sink for face, (I) in shower for UE/LE (MET) 4. Grooming standing at sink (I) teeth and hair brushing (MET) PLAN OF CARE/TREATMENT PLAN: Discharge from skilled OT services. DISCHARGE RECOMMENDATIONS Home when medically cleared per MD with her 3 sons. TREATMENT TIME/MINUTES/CODES [id number], 30 minutes (09:35) Yen Barger OTR/[facility]
[2018-10-09] MEDS: DOXYCYCLINE 100 MG in Normal Saline 100 ML IVPB (10:36)
--- NOTE | 2018-10-09 10:43 | PT.INTREAT ---
Date of service: 10/09/18 Time of Service: 10:43 PT Notes 10/09/18 SUBJECTIVE: Pt stating she is going home today. She notes that she gets very anxious at night that and feels SOB. OBJECTIVE: Seated EOB. Agreeable to PT treatment. TRANSFERS Sit to stand: S Stand to sit: S GAIT Device: no AD Weight bearing: Full Assist: S Distance: 100'x2 Deviation: 1 sit rest break, 1 stand rest break VITALS: 92% 84 b/m at rest on RA. With ambulation 90-87%. ASSESSMENT: Continues to be SOB with ambulation and requires frequent rest breaks. We have discussion regarding energy conservation and taking frequent small walks at home. Pt in agreement with this until her conditioning level increases. PLAN: Pt may be going home later today. If not we will continue per established POC. Direct time: 20 minutes [id number] Kristi Toribio, ANALYST [employer] AND [employer]EVERAGE
--- NOTE | 2018-10-09 10:48 | PTTR_ITS ---
Date of service: 10/09/18 Time of Service: 10:43 PT Notes 10/09/18 SUBJECTIVE: Pt stating she is going home today. She notes that she gets very anxious at night that and feels SOB. OBJECTIVE: Seated EOB. Agreeable to PT treatment. TRANSFERS Sit to stand: S Stand to sit: S GAIT Device: no AD Weight bearing: Full Assist: S Distance: 100'x2 Deviation: 1 sit rest break, 1 stand rest break VITALS: 92% 84 b/m at rest on RA. With ambulation 90-87%. ASSESSMENT: Continues to be SOB with ambulation and requires frequent rest breaks. We have discussion regarding energy conservation and taking frequent small walks at home. Pt in agreement with this until her conditioning level increases. PLAN: Pt may be going home later today. If not we will continue per established POC. Direct time: 20 minutes [id number] Kristi Toribio, MANAGER ACCESS
[2018-10-09 11:05] VITALS: PULSE 100; PULSE 72; PULSE 78; PULSE 94; RESP 20; RESP 24; O2SAT 87; O2SAT 94; O2SAT 95; O2SAT 96
[2018-10-09 11:51] VITALS: BP 184/67; PULSE 69; RESP 22; TEMP 36.2; O2SAT 99
--- NOTE | 2018-10-09 13:02 | W.PM.DS.N ---
Date of service: 10/09/18 Time of Service: 13:03 DS: Diagnosis Discharge Diagnosis (1) COPD exacerbation: Status: Acute (2) Vocal cord dysfunction: Status: Suspected (3) Anxiety: Status: Chronic (4) Lupus (systemic lupus erythematosus): Status: Chronic (5) Petit mal epilepsy: Status: Chronic (6) CAD (coronary artery disease), [place] coronary artery: Status: Chronic Discharge Plan Disposition Patient Disposition: HOME Condition: Improving Discharge Details Reason For Visit: COPD EXACERBATION Admit Date/Time: 09/30/18 04:25 Admit Provider: Dionte Lawrence Attending Provider: Dionte Lawrence Primary Care Provider: John Diaz [facility] Course Hospital Course: Thanh Gonzalez is a 67 year old female with a past medical history significant for severe COPD (per PFTs in 2015), CAD with history of NSTEMI, ADHD, HTN, hypothyroidism, lupus, petit mal seizures, anxiety who presented to the ED on 09/30/18 with reports of increasing shortness of breath with wheezing and fever. Her symptoms began approximately 2 weeks prior to her presentation. She was hypoxic on presentation. Her chest x-ray was a limited examination with question of mild pulmonary edema vs poor pulmonary inflation. She went on to have a chest CT which showed atherosclerotic changes of the aorta. No evidence of pulmonary emboli, aortic dissection or aneurysm. Emphysematous changes. She received IV steroids, nebulizer treatments, antibiotics and lasix. Her respiratory status improved. She was treated with Rocephin and doxycycline. She continued to require supplemental oxygen. She had an ambulatory pulse oximetry test done on the day of discharge from which she qualified for home oxygen. Respiratory therapy is working on setting her up with home O2. She has been on IV steroids, her white blood cell count has increased on the steroids. She has been afebrile and her symptoms have improved. She will continue the course of Doxycycline as an outpatient. She will taper off of prednisone. She will have follow up labs to reassess her white blood cell count next week. She would benefit from pulmonary rehab. She has a followup appointment scheduled with pulmonology. Her inpatient overnight oximetry indicates that she requires oxygen as well. She was noted to have a high pitched voice and auscultation of her neck revealed wheezing, concerning for possible vocal cord dysfunciton. She is in no respiratory distress. Her lungs have a few scattered wheezes. She is scheduled for outpatient follow up with ENT. She is discharged home today in improved condition. She will taper steroids and complete antibiotic course as above. CBC next week. Follow up with her PCP, pulmonology and ENT as scheduled. Home Meds and New Rx's Prescriptions: New zinc oxide 20 % Ointment 60 g topical TID Qty: 0 RF: 0 magnesium oxide 400 mg (241.3 mg magnesium) Tablet 400 mg PO DAILY Qty: 14 RF: 0 pantoprazole 40 mg Tablet,Delayed Release (Dr/Ec) 40 mg PO DAILY@0730 Qty: 30 RF: 0 ranitidine HCl 150 mg Tablet 75 mg PO BID Qty: 30 RF: 0 clotrimazole 1 % Cream 60 g topical TID Qty: 0 RF: 0 acidophilus-pectin, citrus 25 million cell -100 mg Tablet 1 cap PO TID Qty: 15 RF: 0 vits A and D-white pet-lanolin Ointment 60 g topical TID Qty: 0 RF: 0 prednisone 10 mg tablet 10 mg PO DAILY Qty: 36 RF: 0 doxycycline hyclate 100 mg tablet,delayed release (DR/EC) 100 mg PO BID Qty: 6 RF: 0 Continued citalopram 20 MG tablet 40 mg PO DAILY Qty: 180 RF: 3 gabapentin 300 MG capsule 300 mg PO 1 tab am, 2tabs pm Qty: 270 RF: 4 hydroxychloroquine 200 MG tablet 200 mg PO DAILY Qty: 90 RF: 4 epinephrine [EpiPen 2-Mikel] 0.3 MG/0.3 ML auto-injector 0.3 mg IM ONCE Qty: 1 RF: 3 triamterene-hydrochlorothiazid 1 EACH capsule 1 tab-cap PO DAILY Qty: 90 RF: 4 Stiolto Respimat 2.5-2.5 mcg/actuation mist 2 puff IH DAILY Qty: 4 RF: 4 metoprolol succinate 25 mg tablet extended release 24 hr 25 mg PO DAILY Qty: 90 RF: 4 atorvastatin 80 mg tablet 80 mg PO QPM Qty: 90 RF: 4 levothyroxine 50 mcg tablet 50 mcg PO DAILY Qty: 90 RF: 4 lisinopril 2.5 mg tablet 2.5 mg PO DAILY Qty: 90 RF: 4 lorazepam 1 mg tablet 1 mg PO HS MDD 2 mg Qty: 40 RF: 1 Combivent Respimat 20-100 mcg/actuation mist 1 puff Inhalation Q4H PRN (Reason: Exacerbation COPD) Qty: 3 RF: 4 albuterol sulfate 2.5 MG/3 ML solution for nebulization 2.5 mg Inhalation Q4H PRN PRN30 Days RF: 2 Space Chamber Plus 1 EACH spacer 1 ea Miscellaneous PRN PRNQty: 1 RF: 0 PROVENTIL HFA 18 GM HFA.AER.AD 2 puff Inhalation Q6H PRN Qty: 1 RF: 11 acetaminophen [Tylenol] 325 MG tablet 650 mg PO Q4H PRN PRNRF: 0 aspirin 81 MG tablet,delayed release (DR/EC) 81 mg PO DAILY RF: 0 nitroglycerin [Nitrostat] 0.4 MG tablet, sublingual 0.4 mg Sublingual Q5 MIN PRN X3 PRN (Reason: Chest Pain) RF: 0 Discharge Instructions Instructions: COPD (Chronic Obstructive Pulmonary Disease) (DC) Additional Instructions: Take your antibiotics until they are gone. Taper prednisone as follows: take 4 tabs tonight, then 4 tabs x2 days (in the morning), then 3 tabs x2 days, then 2 tabs x2 days, then 1 tab x2 days then stop. Follow up with ENT. Follow up as scheduled with Pulmonology. Follow up with PCP as scheduled. Stand Alone Forms: Nursing Discharge Form Referrals: ENT ([facility]) [Other] (The office will contct you to schedule an appointment.) John Diaz MD [Primary Care Provider] - 10/18/18 1:20 pm Activity:: Activity as Tolerated Equipment/Supplies:: Oxygen (L/min Below) Diet:: Heart healthy Discharge Orders Discharge Orders: Discharge Order (Routine); Ordered 10/09/18 Ordered By: Kary Avila Other Ambulatory Orders: Magnesium (Routine) Timeframe: 20181014 Facility: [facility] - Location: Laboratory Outpatient Ordered By: Kary Avila Complete Blood Count No Diff (Routine) Timeframe: 20181014 Location: Determined by Patient Ordered By: Kary Avila Exam Narrative Exam Narrative: General: Middle aged female, sitting up in bed, mildly anxious. HEENT: Normocephalic, atraumatic, pupils equal and round, mucous membranes moist. Neck: Supple, no JVD. Heart: Regular rate and rhythm, no murmur appreciated. Lungs: Respirations even and unlabored. Few scattered expiratory wheezes noted throughout, diminished lung sounds. Note is made of a wheeze auscultated in her neck. GI: Normoactive bowel sounds, abdomen is soft, nontender, nondistended Extremities: no edema, clubbing, or cyanosis of BLE's DS: Data Vitals/I&O Vitals and I&O: Vital Signs Temperature 36.2 C L 10/09/18 11:51 Temperature Source Tympanic 10/09/18 11:51 Pulse 69 10/09/18 11:51 Pulse Rhythm Regular 10/09/18 08:30 Respiratory Rate 22 10/09/18 11:51 Respiratory Effort 10/09/18 08:30 Respiratory Depth Normal 10/09/18 08:30 Respiratory Pattern Normal 10/09/18 08:30 Blood Pressure 184/67 H 10/09/18 11:51 Blood Pressure Mean 114 09/30/18 04:46 Pulse Oximetry 99 10/09/18 11:51 Oxygen Delivery Method Nasal Cannula 10/09/18 11:51 Oxygen Flow Rate 2 10/09/18 11:51 Pain Level 0 10/09/18 04:34 Comment 10/08/18 11:45 Intake & Output 10/08/18 10/09/18 10/09/18 23:59 11:59 23:59 Intake Total 1175 / 1856.333 670 / 670 Balance 1175 / 1856.333 670 / 670 Intake: IV 155 / 376.333 50 / 50 Oral 1020 / 1480 620 / 620 Other: Comment pt voiding independently in the bathroom Urine not viewed, pt voiding independently in toilet. Voiding Methods Toilet Toilet Completed studies during hospitalization [Text1]: 09/30/18: PORTABLE AP CHEST: Comparison is made with [id number]. The heart size is normal. There are underlying emphysematous and fibrotic changes. The lungs are suboptimally inflated. No infiltrate or effusion is seen. Mild pulmonary edema can not be excluded. There is an old proximal humeral fracture on the left. IMPRESSION: Limited exam. Question of mild pulmonary edema vs poor pulmonary inflation. 10/05/18: CHEST CT FOR PULMONARY EMBOLISM: CT angiography was performed with multi slice acquisition and multi planar and 3D reconstruction. The pulmonary arteries and aorta are well opacified with IV contrast. There is no evidence of pulmonary emboli or aortic dissection. Atherosclerotic changes are seen at the aortic arch and descending aorta. There is no evidence of aneurysm. No pleural or pericardial effusions are seen. There is left atrial enlargement. Emphysematous changes are seen. There are no infiltrates, pulmonary nodules or adenopathy seen. There is an old fracture of the left humeral head. IMPRESSION: Atherosclerotic changes of the aorta. No evidence of pulmonary emboli, aortic dissection or aneurysm. Emphysematous changes. Labs on day of discharge: Labs from last 24 hours 10/09/18 10/09/18 06:18 06:18 WBC 16.69 H RBC 4.76 Hgb 14.2 Hct 43.0 MCV 90.3 MCH 29.8 MCHC 33.0 RDW 13.3 Plt Count 295 MPV 11.5 H Immature Gran % See Differential Neutrophils % 80.0 Lymphocytes % 10.0 Monocytes % 7.0 Eosinophils % 0.0 Basophils % 0.0 Metamyelocytes % 1.0 Myelocytes % 2.0 Absolute Neutrophils 13.35 H Absolute Lymphocytes 1.67 Absolute Monocytes 1.17 H Absolute Eosinophils 0.00 Absolute Basophils 0.00 Differential Comment Manual differential RBC Morphology Normal Sodium 140 Potassium 4.2 Chloride 102 Carbon Dioxide 33.5 H Anion Gap 4.5 BUN 28 H Creatinine 0.93 Estimated GFR/1.73 m2 59.78 Glucose 142 H Calcium 8.4 L Magnesium 2.2 PFSH Medical History Anxiety (Chronic 09/03/14) 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 Grandfather No problems noted. Grandmother No problems noted. Grandmother No problems noted. Social History household members: children and other details: 4 WITH 3 SONS current occupational status: disabled frequency: 1-2 times per week duration: 15-30 minutes/day Smoking and Tabacco status: Former Tobacco Use alcohol intake: current alcohol intake frequency: a few times a month substance use type: does not use Seatbelt use: always
--- NOTE | 2018-10-09 15:07 | CHAPLAIN ---
Thanh was dressed and waiting to be discharged. She said she thinks she'll sleep and rest better at home. Thanh was raised Taoism, but has not attended [employer] in many years. During this admission we've had several conversations about her her paige, her beliefs, and her relationship to God. I offered a prayer with Thanh before I left.
--- NOTE | 2018-10-10 10:57 | W.INDIABCONS ---
Date of service: 10/10/18 Time of Service: 10:57 Diabetes Inpatient Consult DESCRIPTION/ASSESSMENT: Appreciate diabetes consult. Ms. Gonzalez is hospitalized with COPD taking Prednisone with elevated blood sugars yesterday less than 160mg/dl with sensitive insuolin correction. A1c 6.1 ASSESSMENT No criteria for diabetes other than steroid induced hyperglycemia. No intervention suggested at this time. PLAN May benefit from discussion of possible pre-diabetes prevention support. Time Spent in Nutritional Counseling and Treatment: 0 inpatient
--- NOTE | 2018-10-11 08:26 | PT.DS ---
Date of service 10/09/18 Time of Service 11:59 PT Notes Inpatient Physical Therapy Discharge Summary Dates: 10/09/2018 Dates of Service: 10/07/2018?10/09/2018 OBJECTIVE: Pain: Denies ROM: Right Upper Extremity: WFL Left Upper Extremity: WFL Right Lower Extremity: WFL Left Lower Extremity: WFL STRENGTH: Right Upper Extremity: Sh flexors 5/5. Shoulder abd 4+/5. Elbow extensors 5/5. Application Assistant strong and equal. Left Upper Extremity: Sh flexors 5/5. Shoulder abd 4+/5. Elbow extensors 5/5. Application Assistant strong and equal. Right Lower Extremity: Hip flexors 4+/5. Knee extensors 4+/5. Ankle dorsiflexors 4/5. Left Lower Extremity: Hip flexors 4+/5. Knee extensors 4+/5. Ankle dorsiflexors 4/5. BED MOBILITY/TRANSFERS: Supine-sit independent Sit-supine independent Sit to stand independent Stand-sit independent Bed-Chair independent Chair-bed independent GAIT: Per INSTALLATION DRAFTER notes, patient tolerated 100 feet x2 with 1 sitting rest and one standing rest with oxygen saturation staying between 90-96% in room air. Balance: Static Sitting: Normal Dynamic Sitting: Normal Static Standing: Good Dynamic Standing: Good Special Tests: Mobility Limitations Standardized Measure [facility] 6 clicks Basic Mobility Inpatient Short Form: Raw Score: 22 Standardized Score: 20.91% ASSESSMENT: Patient is a 67 year old female referred to physical therapy services with the diagnosis of acute COPD exaerbation. She demonstrated increase in activity tolerance as evidenced by increased ambulation distance with oxygen saturations staying above 90% without oxygen supplementation. She does exhibit continued mild dyspnea which subsides with rest. Per PT documentation patient is agreeable to continuing with activity pacing and deep breathing exercises as instructed in the home exercise program. GOALS ( Met / Not Met): 1. Supine-Sit: [place] MET 2. Sit-Supine: [place] MET 3. Sit-Stand: [place] MET 4. Stand-Sit : [place] MET 5. Bed-Chair: [place] MET 6. Chair-Bed : [place] MET 7. Gait : [place] NOT MET 8. Stairs:[place] NOT MET 9. Independent with home exercise program MET 10. Good balance level MET DISCHARGE PLAN/RECOMMENDATIONS: Patient goes home today with 3 sons without oxygen. Plans on participating again in the wellness exercise program as she did previously. Rochelle Stevenson, PT, DPT,CLT [facility]
--- NOTE | 2018-10-11 08:34 | PTDS_ITS ---
Date of service 10/09/18 Time of Service 11:59 PT Notes Inpatient Physical Therapy Discharge Summary Dates: 10/09/2018 Dates of Service: 10/07/2018?10/09/2018 OBJECTIVE: Pain: Denies ROM: Right Upper Extremity: WFL Left Upper Extremity: WFL Right Lower Extremity: WFL Left Lower Extremity: WFL STRENGTH: Right Upper Extremity: Sh flexors 5/5. Shoulder abd 4+/5. Elbow extensors 5/5. Escrow Processor strong and equal. Left Upper Extremity: Sh flexors 5/5. Shoulder abd 4+/5. Elbow extensors 5/5. Escrow Processor strong and equal. Right Lower Extremity: Hip flexors 4+/5. Knee extensors 4+/5. Ankle dorsiflexors 4/5. Left Lower Extremity: Hip flexors 4+/5. Knee extensors 4+/5. Ankle dorsiflexors 4/5. BED MOBILITY/TRANSFERS: Supine-sit independent Sit-supine independent Sit to stand independent Stand-sit independent Bed-Chair independent Chair-bed independent GAIT: Per TELEGRAPH SERVICE RATER notes, patient tolerated 100 feet x2 with 1 sitting rest and one standing rest with oxygen saturation staying between 90-96% in room air. Balance: Static Sitting: Normal Dynamic Sitting: Normal Static Standing: Good Dynamic Standing: Good Special Tests: Mobility Limitations Standardized Measure [facility] 6 clicks Basic Mobility Inpatient Short Form: Raw Score: 22 Standardized Score: 20.91% ASSESSMENT: Patient is a 67 year old female referred to physical therapy services with the diagnosis of acute COPD exaerbation. She demonstrated increase in activity tolerance as evidenced by increased ambulation distance with oxygen saturations staying above 90% without oxygen supplementation. She does exhibit continued mild dyspnea which subsides with rest. Per PT documentation patient is agreeable to continuing with activity pacing and deep breathing exercises as instructed in the home exercise program. GOALS ( Met / Not Met): 1. Supine-Sit: [place] MET 2. Sit-Supine: [place] MET 3. Sit-Stand: [place] MET 4. Stand-Sit : [place] MET 5. Bed-Chair: [place] MET 6. Chair-Bed : [place] MET 7. Gait : [place] NOT MET 8. Stairs:[place] NOT MET 9. Independent with home exercise program MET 10. Good balance level MET DISCHARGE PLAN/RECOMMENDATIONS: Patient goes home today with 3 sons without oxygen. Plans on participating again in the wellness exercise program as she did previously. Rochelle Stevenson, PT, DPT,CLT [facility]
== END 2018-10-09 17:50 | disposition home or self-care (01) | DRG 191 ==
LOC: ER 04:29 → MS 05:15
PROVIDERS: Internal Medicine; Nurse Practitioner Family; Admitting Provider Family Medicine; Emergency Provider Emergency Medicine; PCP Family Medicine; Visit Provider Internal Medicine
DX: J44.1 Chronic obstructive pulmonary disease with (acute) exacerbation (principal); N17.9 Acute kidney failure, unspecified; E86.0 Dehydration; R09.02 Hypoxemia; I10 Essential (primary) hypertension; E03.9 Hypothyroidism, unspecified; L93.0 Discoid lupus erythematosus; I70.0 Atherosclerosis of aorta; I25.10 Atherosclerotic heart disease of native coronary artery without angina pectoris; J38.3 Other diseases of vocal cords; Z87.891 Personal history of nicotine dependence; E83.42 Hypomagnesemia; F41.9 Anxiety disorder, unspecified; G40.A09 Absence epileptic syndrome, not intractable, without status epilepticus
CPT/HCPCS: 36415; 71275; 80048; 80053; 87449; 93005; 94618; 94640; 96365; 96367; 96375; 97110; 97162; 97166; 97530; 97535; 99223; 99232; 99233; 99239; 99285; J1650; 71045; 83036; 83735; 83880; 84443; 84484; 85025; 87324; 93010; 94762; J0696; J1941; J2930; J3490; J7613; J7620

== ENCOUNTER 2018-10-14 10:40 | Outpatient (CLI) | payer MEDICARE, MEDICAID, SELFPAY ==
[2018-10-14 12:53] LABS: HCT 48.8 % (36.0-46.0); HGB 16.1 g/dL (12.0-15.5); Mean Corpuscular Hemoglobin 29.4 pg (27.0-33.0); Mean Corpuscular Volume 89.2 fL (80-95); Mean Platelet Volume 12.1 fL (8.0-11.0); Platelet Count 218 x1000/uL (130-400); RBC 5.47 m/cumm (4.00-5.20); RBC Distribution Width 13.3 % (11.7-14.6); White Blood Cell Count 18.15 k/cumm (4.4-10.8)
== END 2018-10-14 11:00 ==
PROVIDERS: PCP Family Medicine; Visit Provider Nurse Practitioner
DX: E83.42 Hypomagnesemia (principal); J44.1 Chronic obstructive pulmonary disease with (acute) exacerbation
CPT/HCPCS: 36415; 85027; 83735

== ENCOUNTER 2018-11-12 14:33 | Outpatient (CLI) | payer MEDICARE, MEDICAID, SELFPAY ==
[2018-11-12 15:32] LABS: Abs Immature Grans 0.12 k/cumm (0.0-0.09); Absolute Basophil Count 0.05 k/cumm (0.0-0.2); Absolute Eosinophil Count 0.05 k/cumm (0.0-0.7); Absolute Lymphocyte Count 1.52 k/cumm (1.2-3.4); Absolute Monocyte Count 1.25 k/cumm (0.11-0.7); Basophils % 0.4; Eosinophils % 0.4; HCT 41.6 % (36.0-46.0); HGB 13.5 g/dL (12.0-15.5); Immature Grans % 1.1; Lymphocytes % 13.5; Mean Corp. HGB Concentration 32.5 g/dL (32.0-36.0); Mean Corpuscular Hemoglobin 29.6 pg (27.0-33.0); Mean Corpuscular Volume 91.2 fL (80-95); Mean Platelet Volume 11.5 fL (8.0-11.0); Monocytes % 11.1; Neutrophils % 73.5; Platelet Count 289 x1000/uL (130-400); RBC 4.56 m/cumm (4.00-5.20); RBC Distribution Width 13.4 % (11.7-14.6); White Blood Cell Count 11.26 k/cumm (4.4-10.8)
[2018-11-12 15:47] LABS: Absolute Neutrophil Count 8.28 k/cumm (1.2-6.7); Bilirubin Negative (Negative); Blood Negative (Negative); Clarity Clear; Glucose Negative (Negative); Ketones Negative (Negative); Leukocyte Esterase Negative (Negative); Nitrite Negative (Negative); PROTEIN 16.7 mg/dL; Specific Gravity 1.015 (1.005-1.025); Urobilinogen 0.2 EU/dL (Up TO 0.2)
[2018-11-12 15:54] LABS: ALT 23 U/L (12-78); AST 15 U/L (15-37); Albumin 3.6 g/dL (3.4-5.0); Alkaline Phosphatase 74 U/L (46-116); Anion Gap 8.1 mmol/L (3-11); BUN 14 mg/dL (7-18); Bilirubin, Total 0.4 mg/dL (0.2-1.0); CO2 30.9 mmol/L (21.0-32.0); COMMENT (LAB VIEW ONLY) 77.62 mg/dL; CREATININE 0.96 mg/dL (0.55-1.02); Calcium 9.3 mg/dL (8.5-10.1); Chloride 101 mmol/L (98-107); Estimated GFR 57.46 (mL/min/1.73m2); Glucose 94 mg/dL (70-100); Potassium 4.1 mmol/L (3.5-5.1); Prot/Crea Ur Ratio 0.21; Sodium 140 mmol/L (136-145); Total Protein 6.7 g/dL (6.4-8.2)
[2018-11-12 18:09] LABS: ESR 31 MM/HR (0-30)
[2018-11-13 09:00] LABS: C3 Complement 187 mg/dL (81-157); C4 Complement 36 mg/dL (13-39)
== END 2018-11-12 14:53 ==
PROVIDERS: PCP Family Medicine; Visit Provider Internal Medicine
DX: M32.19 Other organ or system involvement in systemic lupus erythematosus (principal)
CPT/HCPCS: 36415; 80053; 85652; 81003; 82565; 84156; 85025; 86160

== ENCOUNTER 2019-01-14 16:52 | Emergency (ER) | payer MEDICARE, MEDICAID, SELFPAY ==
[2019-01-14 16:55] VITALS: BP 149/51; PULSE 75; RESP 18; TEMP 37.9; O2SAT 92
[2019-01-14 17:14] VITALS: RESP 18
--- NOTE | 2019-01-14 17:19 | DI.RAD_ITS ---
SYMPTOM/DIAGNOSIS: COUGH, SOB, ? PNEUMONIA PA AND LATERAL CHEST: Comparison is made with 09/30/18. The heart is normal in size. The lungs are clear. The mediastinal structures and pleura appear intact. CONCLUSION: Normal chest.
--- NOTE | 2019-01-14 17:40 | ED.GENADUL_ITS ---
Discharge Plan Disposition Patient Disposition: HOME Condition: Improving Discharge Details Chief Complaint: SOB Clinical Impression: Acute exacerbation of chronic obstructive pulmonary disease (COPD), Acute bronchitis Primary Care Provider: John Diaz ED Provider: Cynthia Omalley Home Meds and New Rx's Prescriptions: New prednisone 20 mg tablet See Rx Instructions .ROUTE .COMPLEX Qty: 12 RF: 0 doxycycline hyclate 100 mg tablet 100 mg PO DAILY 5 Days Qty: 5 RF: 0 Continued hydroxychloroquine 200 mg tablet 200 mg PO DAILY Qty: 90 RF: 4 prednisone 20 mg tablet 40 mg PO DAILY Qty: 14 RF: 0 doxycycline hyclate 100 mg tablet 100 mg PO BID Qty: 20 RF: 0 epinephrine [EpiPen 2-Mikel] 0.3 MG/0.3 ML auto-injector 0.3 mg IM ONCE Qty: 1 RF: 3 triamterene-hydrochlorothiazid 1 EACH capsule 1 tab-cap PO DAILY Qty: 90 RF: 4 Stiolto Respimat 2.5-2.5 mcg/actuation mist 2 puff IH DAILY Qty: 4 RF: 4 metoprolol succinate 25 mg tablet extended release 24 hr 25 mg PO DAILY Qty: 90 RF: 4 atorvastatin 80 mg tablet 80 mg PO QPM Qty: 90 RF: 4 levothyroxine 50 mcg tablet 50 mcg PO DAILY Qty: 90 RF: 4 lisinopril 2.5 mg tablet 2.5 mg PO DAILY Qty: 90 RF: 4 Combivent Respimat 20-100 mcg/actuation mist 1 puff Inhalation Q4H PRN (Reason: Exacerbation COPD) Qty: 3 RF: 4 citalopram 20 mg tablet 40 mg PO DAILY Qty: 180 RF: 3 gabapentin 300 mg capsule 300 mg PO 1 tab am, 2tabs pm Qty: 270 RF: 4 lorazepam 1 mg tablet 1 - 2 mg PO HS MDD 2 mg Qty: 40 RF: 1 zinc oxide 20 % Ointment 60 g topical TID Qty: 0 RF: 0 magnesium oxide 400 mg (241.3 mg magnesium) Tablet 400 mg PO DAILY Qty: 14 RF: 0 clotrimazole 1 % Cream 60 g topical TID Qty: 0 RF: 0 acidophilus-pectin, citrus 25 million cell -100 mg Tablet 1 cap PO TID Qty: 15 RF: 0 vits A and D-white pet-lanolin Ointment 60 g topical TID Qty: 0 RF: 0 albuterol sulfate 2.5 MG/3 ML solution for nebulization 2.5 mg Inhalation Q4H PRN PRN30 Days RF: 2 Space Chamber Plus 1 EACH spacer 1 ea Miscellaneous PRN PRNQty: 1 RF: 0 PROVENTIL HFA 18 GM HFA.AER.AD 2 puff Inhalation Q6H PRN Qty: 1 RF: 11 acetaminophen [Tylenol] 325 MG tablet 650 mg PO Q4H PRN PRNRF: 0 aspirin 81 MG tablet,delayed release (DR/EC) 81 mg PO DAILY RF: 0 nitroglycerin [Nitrostat] 0.4 MG tablet, sublingual 0.4 mg Sublingual Q5 MIN PRN X3 PRN (Reason: Chest Pain) RF: 0 Discharge Instructions Instructions: Acute Bronchitis (ED), COPD (Chronic Obstructive Pulmonary Disease) (ED) Additional Instructions: Use your albuterol inhaler and albuterol solution in your nebulizer as needed and directed for cough, shortness of breath or wheezing. Take the steroids and antibiotics until finished. Call your primary care doctor tomorrow to schedule a follow-up appointment for reevaluation this week. Return immediately to the emergency department if you develop any worsening or new concerning symptoms. Discharge Data Discharge Date/Time-TO BE ENTERED AT DEPARTURE: 01/14/19 19:41 Discharge Physician: Cynthia Omalley Medical Decision Making 68-year-old female with a history of COPD, HI, NSTEMI, hypothyroidism, anxiety who presents with cough and shortness of breath for the past 3 days. Temp 100.2, oxygen saturation 92% on room air. No signs of respiratory distress. Scattered wheezing and rhonchi throughout. No lower extremity edema. No crackles. Differential diagnosis includes acute COPD exacerbation, pneumonia, ACS. Will place an IV, give p.o. prednisone, albuterol neb and reassess. EKG notes a rate of 69, sinus, T wave inversion in V2 which is new compared to previous but no acute ST findings. 1920 --patient feels much better and is requesting to go home. Temp 99. O2 saturation 98% on room air. Patient speaking in full sentences and appears comfortable Labs and imaging reviewed and unremarkable. Troponin negative. Patient has plenty of her albuterol solution as well as albuterol inhaler at home. We will send her with a prescription for steroids. Although she had no evidence of pneumonia on exam, patient states she is concerned with her previous history of pneumonia and would like antibiotic. We will send home with a prescription for doxycycline. She has an allergy to Augmentin and Celexa interacts with Levaquin. She is instructed to follow-up with primary care doctor for reevaluation and to return here at any time if worse. Medical Records Medical records reviewed: Yes I reviewed the patient's medical records. Imaging Data Radiologic Study: Radiologist's impression: XR Chest, 2 Views EXAM DATE/TIME: 01/14/2019 5:22 PM CLINICAL HISTORY: 68 years old, female; Signs and symptoms; Other: Cough, shortness of breath, R/O pneumonia TECHNIQUE: Imaging protocol: XR of the chest, 2 views. COMPARISON: SC XR PORTABLE CHEST AP 09/30/2018 3:43 AM FINDINGS: Lungs: Unremarkable. No consolidation. Pleural space: Unremarkable. No pleural effusion. No pneumothorax. Heart/Mediastinum: Unremarkable. No cardiomegaly. Vasculature: Aortic atherosclerosis. Bones/joints: Degenerative changes in the spine. IMPRESSION: No acute finding. Lab Data Lab results reviewed: Yes I reviewed the patient's lab results. Laboratory Tests Range/Units 01/14/19 01/14/19 17:27 17:27 WBC (4.4-10.8) k/cumm 6.82 RBC (4.00-5.20) m/cumm 4.69 Hgb (12.0-15.5) g/dL 14.0 Hct (36.0-46.0) % 42.1 MCV (80-95) fL 89.8 MCH (27.0-33.0) pg 29.9 MCHC (32.0-36.0) g/dL 33.3 RDW (11.7-14.6) % 12.6 Plt Count (130-400) x1000/uL 265 MPV (8.0-11.0) fL 11.2 H Immature Gran % 0.1 Neutrophils % 66.1 Lymphocytes % 19.9 Monocytes % 10.0 Eosinophils % 3.5 Basophils % 0.4 Absolute Neutrophils (1.2-6.7) k/cumm 4.50 Absolute Lymphocytes (1.2-3.4) k/cumm 1.36 Absolute Monocytes (0.11-0.7) k/cumm 0.68 Absolute Eosinophils (0.0-0.7) k/cumm 0.24 Absolute Basophils (0.0-0.2) k/cumm 0.03 Sodium (136-145) mmol/L 140 Potassium (3.5-5.1) mmol/L 4.5 Chloride (98-107) mmol/L 102 Carbon Dioxide (21.0-32.0) mmol/L 31.6 Anion Gap (3-11) mmol/L 6.4 BUN (7-18) mg/dL 11 Creatinine (0.55-1.02) mg/dL 0.95 Estimated GFR/1.73 m2 (mL/min/1.73m2) 58.16 Glucose (70-100) mg/dL 76 Calcium (8.5-10.1) mg/dL 9.2 Magnesium (1.8-2.4) mg/dL 2.0 Total Bilirubin (0.2-1.0) mg/dL 0.3 AST (15-37) U/L 22 ALT (12-78) U/L 22 Alkaline Phosphatase (46-116) U/L 71 Troponin I (0.00-0.06) ng/mL < 0.02 Total Protein (6.4-8.2) g/dL 6.7 Albumin (3.4-5.0) g/dL 3.4 ECG Data Attestation: I personally reviewed and interpreted this ECG (s) as follows: Interpretation: Rate of 69, sinus, T wave inversion in V2 which appears new compared to previous. No acute ST elevation or depression. QTc 441. QRS 82. HPI General Mode of arrival: ambulatory . Date/Time Provider Initiated Documentation: 01/14/19 16:56 . Limitations to Documentation: no limitations . Information obtained by: patient . HPI Narrative: Patient is a 5-year-old female presents the ED with complaint of cough and shortness of breath for the past 3 days. States the cough is dry but feels like she has chest congestion. She states her shortness of breath is worse with exertion at times and denies any worsening when supine. She states she used her nebulizer treatment at home last night with some relief. She did not take any treatment today. She states she has been eating and drinking normally. She admits to some fatigue. She denies any recent antibiotics, steroids, chest pain, fever. She denies any leg pain or swelling, recent travel or recent surgery. Related Data Home Medications Medication Instructions Recorded Confirmed epinephrine [EpiPen 2-Mikel] 0.3 mg IM ONCE #1 ea 12/14/17 12/13/18 Proventil Hfa 2 puff INHALATION Q6H PRN #1 01/11/18 12/13/18 inhaler Space Chamber Plus #1 spacer 01/11/18 12/13/18 albuterol sulfate 2.5 mg INHALATION Q4H PRN PRN 30 01/11/18 12/13/18 Days vial acetaminophen [Tylenol] 650 mg PO Q4H PRN PRN tab 03/01/18 12/13/18 aspirin 81 mg PO DAILY tabec 03/01/18 12/13/18 nitroglycerin [Nitrostat] 0.4 mg SUBLINGUAL Q5 MIN PRN X3 03/01/18 12/13/18 PRN tab triamterene-hydrochlorothiazid 1 tab-cap PO DAILY #90 tab-cap 04/04/18 12/13/18 tiotropium 2.5 mcg-olodaterol 2.5 2 puff IH DAILY #4 gm 06/04/18 12/13/18 mcg/actuation mist for inhalation metoprolol succinate ER 25 mg 25 mg PO DAILY #90 tab 06/17/18 12/13/18 tablet,extended release 24 hr atorvastatin 80 mg tablet 80 mg PO QPM #90 tab 06/18/18 12/13/18 levothyroxine 50 mcg tablet 50 mcg PO DAILY #90 tab-cap 07/08/18 12/13/18 lisinopril 2.5 mg tablet 2.5 mg PO DAILY #90 tab-cap 07/15/18 12/13/18 ipratropium 20 mcg-albuterol 100 1 puff INHALATION Q4H PRN #3 gm 09/04/18 12/13/18 mcg/actuation mist for inhalation acidophilus-pectin, citrus 1 cap PO TID #15 tab 10/09/18 12/13/18 clotrimazole 60 g TOPICAL TID #0 g 10/09/18 12/13/18 magnesium oxide 400 mg PO DAILY #14 tab 10/09/18 12/13/18 vits A and D-white pet-lanolin 60 g TOPICAL TID #0 g 10/09/18 12/13/18 zinc oxide 60 g TOPICAL TID #0 g 10/09/18 12/13/18 citalopram 20 mg tablet 40 mg PO DAILY #180 tab-cap 10/14/18 12/13/18 gabapentin 300 mg capsule 300 mg PO 1 tab am, 2tabs pm #270 10/23/18 12/13/18 tab prednisone 20 mg tablet 40 mg PO DAILY #14 tab 10/25/18 12/13/18 hydroxychloroquine 200 mg tablet 200 mg PO DAILY #90 tab-cap 11/08/18 12/13/18 doxycycline hyclate 100 mg tablet 100 mg PO BID #20 tab 12/13/18 12/13/18 lorazepam 1 mg tablet 1 - 2 mg PO HS #40 tab MDD 2 mg 12/27/18 doxycycline hyclate 100 mg PO DAILY 5 Days #5 tab 01/14/19 prednisone See Rx Instructions .ROUTE 01/14/19 .COMPLEX #12 tab Previous Rx's Medication Instructions Recorded epinephrine [EpiPen 2-Mikel] 0.3 mg IM ONCE #1 ea 12/14/17 Proventil Hfa 2 puff INHALATION Q6H PRN #1 01/11/18 inhaler Space Chamber Plus #1 spacer 01/11/18 albuterol sulfate 2.5 mg INHALATION Q4H PRN PRN 30 01/11/18 Days vial acetaminophen [Tylenol] 650 mg PO Q4H PRN PRN tab 03/01/18 aspirin 81 mg PO DAILY tabec 03/01/18 nitroglycerin [Nitrostat] 0.4 mg SUBLINGUAL Q5 MIN PRN X3 03/01/18 PRN tab triamterene-hydrochlorothiazid 1 tab-cap PO DAILY #90 tab-cap 04/04/18 tiotropium 2.5 mcg-olodaterol 2.5 2 puff IH DAILY #4 gm 06/04/18 mcg/actuation mist for inhalation metoprolol succinate ER 25 mg 25 mg PO DAILY #90 tab 06/17/18 tablet,extended release 24 hr atorvastatin 80 mg tablet 80 mg PO QPM #90 tab 06/18/18 levothyroxine 50 mcg tablet 50 mcg PO DAILY #90 tab-cap 12/03/18 lisinopril 2.5 mg tablet 2.5 mg PO DAILY #90 tab-cap 07/15/18 ipratropium 20 mcg-albuterol 100 1 puff INHALATION Q4H PRN #3 gm 09/04/18 mcg/actuation mist for inhalation acidophilus-pectin, citrus 1 cap PO TID #15 tab 10/09/18 clotrimazole 60 g TOPICAL TID #0 g 10/09/18 magnesium oxide 400 mg PO DAILY #14 tab 10/09/18 vits A and D-white pet-lanolin 60 g TOPICAL TID #0 g 10/09/18 zinc oxide 60 g TOPICAL TID #0 g 10/09/18 citalopram 20 mg tablet 40 mg PO DAILY #180 tab-cap 10/14/18 gabapentin 300 mg capsule 300 mg PO 1 tab am, 2tabs pm #270 10/23/18 tab prednisone 20 mg tablet 40 mg PO DAILY #14 tab 10/25/18 hydroxychloroquine 200 mg tablet 200 mg PO DAILY #90 tab-cap 11/08/18 doxycycline hyclate 100 mg tablet 100 mg PO BID #20 tab 12/13/18 lorazepam 1 mg tablet 1 - 2 mg PO HS #40 tab MDD 2 mg 12/27/18 doxycycline hyclate 100 mg PO DAILY 5 Days #5 tab 01/14/19 prednisone See Rx Instructions .ROUTE 01/14/19 .COMPLEX #12 tab Allergies Allergy/AdvReac Type Severity Reaction Status Date / Time bee venom protein (honey bee) Allergy Severe Anaphylaxsi Unverified 12/13/18 13:13 s tetanus toxoid, adsorbed Allergy Severe swelling,fe Unverified 12/13/18 13:13 geneva benzonatate Allergy Mild rash Unverified 12/13/18 13:13 [From Tessalon Perles] amoxicillin trihydrate AdvReac Intermediate Diarrhea - Unverified 12/13/18 13:13 [From Augmentin] Severe potassium clavulanate AdvReac Intermediate Diarrhea - Unverified 12/13/18 13:13 [From Augmentin] Severe insects Allergy Severe Anaphylaxsi Uncoded 12/13/18 13:13 s General Stated Complaint: SOB HOLLIS: 3 Review of Systems Review of Systems All systems reviewed & are unremarkable except as noted in HPI and below Constitutional Reports as per HPI, Denies chills and Denies fever(s) Eyes Denies blurry vision ENT Denies dizziness, Denies sore throat and Denies throat swelling Cardiovascular Denies chest pain and Reports dyspnea Respiratory Reports cough and Reports dyspnea Gastrointestinal Denies abdominal pain, Denies diarrhea and Denies vomiting Genitourinary Denies hematuria and Denies dysuria Musculoskeletal Denies back pain and Denies numbness Integumentary/Breasts Denies lesions and Denies rash Neurologic Denies dizziness, Denies focal weakness and Denies numbness Allergic/Immunologic Denies throat swelling [facility] Medical History Anxiety (Chronic 09/03/14) 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 Grandfather No problems noted. Grandmother No problems noted. Grandmother No problems noted. Social History Smoking/Tobacco Use Status: Former Tobacco Use Alcohol Intake: current Alcohol Intake frequency: a few times a month Drug use: Never Substance use type: does not use Household members: children and other Details: 4 WITH 3 SONS Duration: 15-30 minutes/day Frequency: 1-2 times per week Seatbelt use: always Do you feel safe in your relationship?: Yes Exam Const General: cooperative, healthy appearing and no acute distress HENMT Head: normal to inspection Face and sinus: normal facial exam Eyes General: appearance normal, both eyes and all related structures EOM: EOM intact bilaterally Neck Neck: normal visual inspection and No submandibular swelling Lymphatic: no lymphadenopathy noted Chest Chest: normal inspection of the chest and no tenderness Resp Effort & Inspection: normal respiratory effort and able to speak in complete sentences Auscultation: rhonchi left upper and left lower and wheezes scattered wheezes Cardio Rate: regular rate Rhythm: regular rhythm GI Inspection: normal to inspection Palpation: soft, not firm, not rigid and nontender Auscultation: normal bowel sounds Skin General skin exam: no rashes or lesions noted Neuro General: alert, awake and oriented x3 Cognition: normal cognition Speech: speech normal Motor: muscle tone normal throughout Sensory Exam: no sensory deficits noted Extrem General: normal to inspection, full ROM and no edema Psych Appearance: grossly normal Mental Status: mental status grossly normal Speech and Movement: speech and movement normal Affect: normal affect Course Vital Signs Temperature 100.2 F H 01/14/19 16:55 Pulse 75 01/14/19 16:55 Respiratory Rate 18 01/14/19 16:55 Blood Pressure 149/51 H 01/14/19 16:55 Pulse Oximetry 92 L 01/14/19 16:55 Temperature 100.2 F H 01/14/19 16:55 Temperature Source Temporal Artery Scan 01/14/19 16:55 Pulse 75 01/14/19 16:55 Respiratory Rate 18 01/14/19 17:14 Respiratory Effort Non-Labored 01/14/19 17:14 Respiratory Depth Normal 01/14/19 17:14 Respiratory Pattern Normal 01/14/19 17:14 Blood Pressure 149/51 H 01/14/19 16:55 Blood Pressure Position Sitting 01/14/19 16:55 Pulse Oximetry 92 L 01/14/19 16:55 Oxygen Delivery Method Room Air 01/14/19 16:55 Oxygen Flow Rate 0 01/14/19 16:55
[2019-01-14] MEDS: predniSONE 20 MG TAB 60 MG PO (17:42)
[2019-01-14] MEDS: Albuterol 2.5 MG/3 ML INH SOLN VIAL 5 MG UPD (17:42)
[2019-01-14 17:47] LABS: Abs Immature Grans 0.01 k/cumm (0.0-0.09); Absolute Basophil Count 0.03 k/cumm (0.0-0.2); Absolute Eosinophil Count 0.24 k/cumm (0.0-0.7); Absolute Lymphocyte Count 1.36 k/cumm (1.2-3.4); Absolute Monocyte Count 0.68 k/cumm (0.11-0.7); Basophils % 0.4; Eosinophils % 3.5; HCT 42.1 % (36.0-46.0); Immature Grans % 0.1; Lymphocytes % 19.9; Mean Corp. HGB Concentration 33.3 g/dL (32.0-36.0); Mean Corpuscular Hemoglobin 29.9 pg (27.0-33.0); Mean Corpuscular Volume 89.8 fL (80-95); Mean Platelet Volume 11.2 fL (8.0-11.0); Neutrophils % 66.1; Platelet Count 265 x1000/uL (130-400); RBC 4.69 m/cumm (4.00-5.20); RBC Distribution Width 12.6 % (11.7-14.6); White Blood Cell Count 6.82 k/cumm (4.4-10.8)
[2019-01-14 18:01] LABS: ALT 22 U/L (12-78); AST 22 U/L (15-37); Albumin 3.4 g/dL (3.4-5.0); Alkaline Phosphatase 71 U/L (46-116); Anion Gap 6.4 mmol/L (3-11); BUN 11 mg/dL (7-18); Bilirubin, Total 0.3 mg/dL (0.2-1.0); CO2 31.6 mmol/L (21.0-32.0); CREATININE 0.95 mg/dL (0.55-1.02); Calcium 9.2 mg/dL (8.5-10.1); Chloride 102 mmol/L (98-107); Estimated GFR 58.16 (mL/min/1.73m2); Glucose 76 mg/dL (70-100); Potassium 4.5 mmol/L (3.5-5.1); Sodium 140 mmol/L (136-145); Total Protein 6.7 g/dL (6.4-8.2); Troponin I < 0.02 ng/mL (0.00-0.06)
[2019-01-14] MEDS: Acetaminophen 325 MG TAB 650 MG PO (18:29)
[2019-01-14 18:41] VITALS: O2SAT 97
--- NOTE | 2019-01-14 18:47 | DI.VRAD_ITS ---
EXAM: XR Chest, 2 Views EXAM DATE/TIME: 01/14/2019 5:22 PM CLINICAL HISTORY: 68 years old, female; Signs and symptoms; Other: Cough, shortness of breath, R/O pneumonia TECHNIQUE: Imaging protocol: XR of the chest, 2 views. COMPARISON: SC XR PORTABLE CHEST AP 09/30/2018 3:43 AM FINDINGS: Lungs: Unremarkable. No consolidation. Pleural space: Unremarkable. No pleural effusion. No pneumothorax. Heart/Mediastinum: Unremarkable. No cardiomegaly. Vasculature: Aortic atherosclerosis. Bones/joints: Degenerative changes in the spine. IMPRESSION: No acute finding. Dictated and Authenticated by: Lupis Pop MD. Ordering:OTF Marie MD
[2019-01-14 18:50] VITALS: O2SAT 96
[2019-01-14 19:30] VITALS: BP 153/78; PULSE 74; RESP 18; TEMP 37.2; O2SAT 95
== END 2019-01-14 19:41 | disposition home or self-care (01) ==
PROVIDERS: Emergency Provider Physician Assistant; PCP Family Medicine
DX: J20.9 Acute bronchitis, unspecified (principal); J44.1 Chronic obstructive pulmonary disease with (acute) exacerbation; J44.0 Chronic obstructive pulmonary disease with (acute) lower respiratory infection; I10 Essential (primary) hypertension; I25.2 Old myocardial infarction
CPT/HCPCS: 36415; 80053; 93005; 94640; 99285; 71046; 83735; 84484; 85025; 93010; J7512; J7613

== ENCOUNTER 2019-01-22 17:53 | Emergency (ER) | payer MEDICARE, MEDICAID, SELFPAY ==
[2019-01-22 17:56] VITALS: BP 153/62; PULSE 74; RESP 20; TEMP 36.9; O2SAT 98
--- NOTE | 2019-01-22 18:25 | ED.GENADUL_ITS ---
Discharge Plan Disposition Patient Disposition: HOME Condition: Improving Discharge Details Chief Complaint: RespSymp Clinical Impression: COPD exacerbation Primary Care Provider: John Diaz ED Provider: Meggan Hernandez Cooter Meds and New Rx's Prescriptions: Continued hydroxychloroquine 200 mg tablet 200 mg PO DAILY Qty: 90 RF: 4 epinephrine [EpiPen 2-Mikel] 0.3 MG/0.3 ML auto-injector 0.3 mg IM ONCE Qty: 1 RF: 3 triamterene-hydrochlorothiazid 1 EACH capsule 1 tab-cap PO DAILY Qty: 90 RF: 4 Stiolto Respimat 2.5-2.5 mcg/actuation mist 2 puff IH DAILY Qty: 4 RF: 4 metoprolol succinate 25 mg tablet extended release 24 hr 25 mg PO DAILY Qty: 90 RF: 4 atorvastatin 80 mg tablet 80 mg PO QPM Qty: 90 RF: 4 levothyroxine 50 mcg tablet 50 mcg PO DAILY Qty: 90 RF: 4 lisinopril 2.5 mg tablet 2.5 mg PO DAILY Qty: 90 RF: 4 Combivent Respimat 20-100 mcg/actuation mist 1 puff Inhalation Q4H PRN (Reason: Exacerbation COPD) Qty: 3 RF: 4 citalopram 20 mg tablet 40 mg PO DAILY Qty: 180 RF: 3 gabapentin 300 mg capsule 300 mg PO 1 tab am, 2tabs pm Qty: 270 RF: 4 lorazepam 1 mg tablet 1 - 2 mg PO HS MDD 2 mg Qty: 40 RF: 1 zinc oxide 20 % Ointment 60 g topical TID Qty: 0 RF: 0 magnesium oxide 400 mg (241.3 mg magnesium) Tablet 400 mg PO DAILY Qty: 14 RF: 0 clotrimazole 1 % Cream 60 g topical TID Qty: 0 RF: 0 acidophilus-pectin, citrus 25 million cell -100 mg Tablet 1 cap PO TID Qty: 15 RF: 0 vits A and D-white pet-lanolin Ointment 60 g topical TID Qty: 0 RF: 0 albuterol sulfate 2.5 MG/3 ML solution for nebulization 2.5 mg Inhalation Q4H PRN PRN30 Days RF: 2 Space Chamber Plus 1 EACH spacer 1 ea Miscellaneous PRN PRNQty: 1 RF: 0 PROVENTIL HFA 18 GM HFA.AER.AD 2 puff Inhalation Q6H PRN Qty: 1 RF: 11 acetaminophen [Tylenol] 325 MG tablet 650 mg PO Q4H PRN PRNRF: 0 aspirin 81 MG tablet,delayed release (DR/EC) 81 mg PO DAILY RF: 0 nitroglycerin [Nitrostat] 0.4 MG tablet, sublingual 0.4 mg Sublingual Q5 MIN PRN X3 PRN (Reason: Chest Pain) RF: 0 Discharge Instructions Instructions: COPD (Chronic Obstructive Pulmonary Disease) (ED) Additional Instructions: Encourage hydration. Please continue with nebulizers and Acapella as advised by respiratory therapy. Use the Acapella every time during the nebulizer every 6 hours. Please see attached education on COPD exacerbations as well as managing her COPD during allergy season. Please contact primary care tomorrow to schedule follow-up appointment this week for reevaluation. If you develop feve rs/chills, difficulty breathing, increased shortness of breath, chest pain or other new/worsening symptoms please seek care urgently once again Referrals: John Diaz MD [Primary Care Provider] - Medical Decision Making Patient 68-year-old female with history of COPD, PA, and STEMI, hypothyroidism, anxiety presenting today for reevaluation of cough and shortness of breath. Patient was seen here last week and was diagnosed with COPD exacerbation bronchitis. She was treated with steroids as well as doxycycline. States that despite these interventions, her symptoms have persisted. She states that her chest feels looser and she is been bringing up green sputum. She denies any fevers or chills. Patient does not appear to be in respiratory distress. Oxygen is 98% on room air, she is not tachypneic. Patient sounds tight with wheezing noted on exam. Plan for nebulizer as well as repeat chest x-ray. Patient denies any chest pain. Denies this feeling like her previous cardiac event. Chest x-ray reviewed by radiology, they advised no acute findings. Stable chest x-ray compared to this time last year. Discussed this with the patient. She was evaluated by [facility] with respiratory therapy. She feels that patient is at her baseline, knows her well. Advised that she may be having a mild COPD exacerbation. Patient responded very well to the Acapella treatment that she received here with respiratory therapy. Patient was given education on managing COPD during allergy season as well. At this point, I do not feel that further medication is appropriate and will rather have her continue with the recommendations made by respiratory therapy in regard to the Acapella and continue nebulizer treatments. Advised prompt follow-up with her primary care, she will call them tomorrow to schedule appointment. She was given strict return precautions. All of her questions and concerns were addressed and she is in agreement this plan HPI General Mode of arrival: ambulatory . Date/Time Provider Initiated Documentation: 01/22/19 18:07 . Limitations to Documentation: no limitations . Information obtained by: patient and RN notes reviewed . History of Present Illness 68 year old F presents to the emergency department with the chief complaint of cough, described as moderate (states seh has had a rattly cough, no pain), Patient started experiencing this week(s) and it has been constant. No relieving factors improve symptom(s), No exacerbating factors reported . Patient notes cough; denies confusion, chest pain, diaphoresis, fever/chills, headaches, loss of appetite, malaise, nausea/vomiting, rash, shortness of breath, syncope and weakness. Patient did receive the following treatments prior to arrival, other (was on Doxycycline and Prednisone) Related Data Home Medications Medication Instructions Recorded Confirmed epinephrine [EpiPen 2-Mikel] 0.3 mg IM ONCE #1 ea 12/14/17 01/22/19 Proventil Hfa 2 puff INHALATION Q6H PRN #1 01/11/18 01/22/19 inhaler Space Chamber Plus #1 spacer 01/11/18 01/22/19 albuterol sulfate 2.5 mg INHALATION Q4H PRN PRN 30 01/11/18 01/22/19 Days vial acetaminophen [Tylenol] 650 mg PO Q4H PRN PRN tab 03/01/18 01/22/19 aspirin 81 mg PO DAILY tabec 03/01/18 01/22/19 nitroglycerin [Nitrostat] 0.4 mg SUBLINGUAL Q5 MIN PRN X3 03/01/18 01/22/19 PRN tab triamterene-hydrochlorothiazid 1 tab-cap PO DAILY #90 tab-cap 04/04/18 01/22/19 tiotropium 2.5 mcg-olodaterol 2.5 2 puff IH DAILY #4 gm 06/04/18 01/22/19 mcg/actuation mist for inhalation metoprolol succinate ER 25 mg 25 mg PO DAILY #90 tab 06/17/18 01/22/19 tablet,extended release 24 hr atorvastatin 80 mg tablet 80 mg PO QPM #90 tab 06/18/18 01/22/19 levothyroxine 50 mcg tablet 50 mcg PO DAILY #90 tab-cap 07/08/18 01/22/19 lisinopril 2.5 mg tablet 2.5 mg PO DAILY #90 tab-cap 07/15/18 01/22/19 ipratropium 20 mcg-albuterol 100 1 puff INHALATION Q4H PRN #3 gm 09/04/18 01/22/19 mcg/actuation mist for inhalation acidophilus-pectin, citrus 1 cap PO TID #15 tab 10/09/18 01/22/19 clotrimazole 60 g TOPICAL TID #0 g 10/09/18 01/22/19 magnesium oxide 400 mg PO DAILY #14 tab 10/09/18 01/22/19 vits A and D-white pet-lanolin 60 g TOPICAL TID #0 g 10/09/18 01/22/19 zinc oxide 60 g TOPICAL TID #0 g 10/09/18 01/22/19 citalopram 20 mg tablet 40 mg PO DAILY #180 tab-cap 10/14/18 01/22/19 gabapentin 300 mg capsule 300 mg PO 1 tab am, 2tabs pm #270 10/23/18 01/22/19 tab hydroxychloroquine 200 mg tablet 200 mg PO DAILY #90 tab-cap 11/08/18 01/22/19 lorazepam 1 mg tablet 1 - 2 mg PO HS #40 tab MDD 2 mg 12/27/18 01/22/19 Previous Rx's Medication Instructions Recorded epinephrine [EpiPen 2-Mikel] 0.3 mg IM ONCE #1 ea 12/14/17 Proventil Hfa 2 puff INHALATION Q6H PRN #1 01/11/18 inhaler Space Chamber Plus #1 spacer 01/11/18 albuterol sulfate 2.5 mg INHALATION Q4H PRN PRN 30 01/11/18 Days vial acetaminophen [Tylenol] 650 mg PO Q4H PRN PRN tab 03/01/18 aspirin 81 mg PO DAILY tabec 03/01/18 nitroglycerin [Nitrostat] 0.4 mg SUBLINGUAL Q5 MIN PRN X3 03/01/18 PRN tab triamterene-hydrochlorothiazid 1 tab-cap PO DAILY #90 tab-cap 04/04/18 tiotropium 2.5 mcg-olodaterol 2.5 2 puff IH DAILY #4 gm 06/04/18 mcg/actuation mist for inhalation metoprolol succinate ER 25 mg 25 mg PO DAILY #90 tab 06/17/18 tablet,extended release 24 hr atorvastatin 80 mg tablet 80 mg PO QPM #90 tab 06/18/18 levothyroxine 50 mcg tablet 50 mcg PO DAILY #90 tab-cap 07/08/18 lisinopril 2.5 mg tablet 2.5 mg PO DAILY #90 tab-cap 07/15/18 ipratropium 20 mcg-albuterol 100 1 puff INHALATION Q4H PRN #3 gm 09/04/18 mcg/actuation mist for inhalation acidophilus-pectin, citrus 1 cap PO TID #15 tab 10/09/18 clotrimazole 60 g TOPICAL TID #0 g 10/09/18 magnesium oxide 400 mg PO DAILY #14 tab 10/09/18 vits A and D-white pet-lanolin 60 g TOPICAL TID #0 g 10/09/18 zinc oxide 60 g TOPICAL TID #0 g 10/09/18 citalopram 20 mg tablet 40 mg PO DAILY #180 tab-cap 10/14/18 gabapentin 300 mg capsule 300 mg PO 1 tab am, 2tabs pm #270 10/23/18 tab hydroxychloroquine 200 mg tablet 200 mg PO DAILY #90 tab-cap 11/08/18 lorazepam 1 mg tablet 1 - 2 mg PO HS #40 tab MDD 2 mg 12/27/18 Allergies Allergy/AdvReac Type Severity Reaction Status Date / Time bee venom protein (honey bee) Allergy Severe Anaphylaxsi Unverified 01/22/19 17:58 s tetanus toxoid, adsorbed Allergy Severe swelling,fe Unverified 01/22/19 17:58 geneva benzonatate Allergy Mild rash Unverified 01/22/19 17:58 [From Tessalon Perles] amoxicillin trihydrate AdvReac Intermediate Diarrhea - Unverified 01/22/19 17:58 [From Augmentin] Severe potassium clavulanate AdvReac Intermediate Diarrhea - Unverified 01/22/19 17:58 [From Augmentin] Severe insects Allergy Severe Anaphylaxsi Uncoded 01/22/19 17:58 s General Stated Complaint: RespSymp HOLLIS: 3 Review of Systems Constitutional Reports as per HPI and Denies headache(s) Eyes Reports as per HPI, Denies eye discharge and Denies irritation ENT Reports as per HPI and Denies headache(s) Cardiovascular Reports as per HPI, Denies chest pain and Reports dyspnea (chronic, associates with COPD) Respiratory Reports as per HPI, Reports chest congestion, Reports cough, Denies hemoptysis, Denies excessive phlegm production, Denies pain on inspiration, Reports dyspnea (chronic, associates with COPD), Denies stridor and Denies wheezing Gastrointestinal Reports as per HPI, Denies abdominal pain, Denies change in bowel habits, Denies nausea and Denies vomiting Integumentary/Breasts Reports as per HPI and Denies rash Neurologic Reports as per HPI and Denies headache(s) Allergic/Immunologic Denies wheezing [facility] Medical History Anxiety (Chronic 09/03/14) 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) Lupus (systemic lupus erythematosus) (Chronic 09/03/14) Hypothyroidism (Chronic 09/03/14) 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) Essential hypertension (Chronic 09/03/14) ADHD (attention deficit hyperactivity disorder) (Chronic 09/03/14) NSTEMI (non-ST elevated myocardial infarction) (Chronic) COPD (chronic obstructive pulmonary disease) (Chronic) Surgical History History of ankle surgery (Inactive) Social History Smoking/Tobacco Use Status: Former Tobacco Use Alcohol Intake: current Alcohol Intake frequency: a few times a month Drug use: Never Substance use type: does not use Household members: children and other Details: 4 WITH 3 SONS Duration: 15-30 minutes/day Frequency: 1-2 times per week Seatbelt use: always Do you feel safe at home: Yes Do you feel safe in your relationship?: Yes Exam Const General: cooperative, healthy appearing, comfortable, no acute distress, well developed and well groomed Nutritional Appearance: average body habitus and well nourished Orientation: alert and awake [facility] [place] Head: normal to inspection, normocephalic and atraumatic Ears: hearing grossly normal bilaterally, external ears normal and TM's normal bilaterally General nose exam: external nose normal and nares normal Face and sinus: normal facial exam, sinuses nontender and face symmetric Mouth: oral mucosae normal, lip normal, tongue normal, oropharynx normal and moist mucous membranes Teeth and gingiva: dentition normal Throat: posterior oropharynx normal, tonsils normal and uvula midline Eyes General: appearance normal, both eyes and all related structures Neck Neck: normal visual inspection, full ROM, no lymphadenopathy and no meningeal signs Resp Effort & Inspection: normal respiratory effort, able to speak in complete sentences and no respiratory distress Auscultation: no rales, no rhonchi and wheezes expiratory wheezes and scattered wheezes Cardio Rate: regular rate Rhythm: regular rhythm Heart Sounds: S1 normal and S2 normal Skin General skin exam: no rashes or lesions noted Neuro General: alert and awake Cognition: normal cognition Speech: speech normal Gait: normal gait Psych Appearance: grossly normal and well kempt Mental Status: mental status grossly normal Speech and Movement: speech and movement normal Course Vital Signs Temperature 36.9 C 01/22/19 17:56 Pulse 74 01/22/19 17:56 Respiratory Rate 01/22/19 17:56 Blood Pressure 153/62 H 01/22/19 17:56 Pulse Oximetry 98 01/22/19 17:56 Temperature 36.9 C 01/22/19 17:56 Temperature Source Temporal Artery Scan 01/22/19 17:56 Pulse 74 01/22/19 17:56 Respiratory Rate 01/22/19 17:56 Respiratory Effort Non-Labored 01/22/19 17:56 Blood Pressure 153/62 H 01/22/19 17:56 Blood Pressure Position Sitting 01/22/19 17:56 Pulse Oximetry 98 01/22/19 17:56 Oxygen Delivery Method Room Air 01/22/19 17:56 Oxygen Flow Rate 0 01/22/19 17:56
--- NOTE | 2019-01-22 19:17 | DI.RAD_ITS ---
SYMPTOM/DIAGNOSIS: COUGH PA AND LATERAL CHEST: The lungs are free of infiltrate. There is no pleural effusion. The cardiovascular structures are intact. SUMMARY: No evidence of acute cardiopulmonary disease.
--- NOTE | 2019-01-22 19:27 | DI.VRAD_ITS ---
EXAM: XR Chest, 2 Views EXAM DATE/TIME: 01/22/2019 6:24 PM CLINICAL HISTORY: 68 years old, female; Patient HX: Copd, productive cough x 2 weeks TECHNIQUE: Imaging protocol: XR of the chest, 2 views. COMPARISON: CR XR CHEST 2V PA LATERAL 06/11/2019 18:24 FINDINGS: Lungs: Unremarkable. No consolidation. Pleural space: Unremarkable. No pleural effusion. No pneumothorax. Heart/Mediastinum: Unremarkable. No cardiomegaly. Bones/joints: Unremarkable. IMPRESSION: No acute findings. Stable chest x-ray compared with 01/14/2018 Dictated and Authenticated by: Emily Izquierdo MD. Ordering:RASHMI Broderick MD
[2019-01-22 19:44] VITALS: PULSE 74; RESP 1; RESP 18; O2SAT 96
[2019-01-22] MEDS: Albuterol/Ipratropium 3 ML UPD VIAL UPD (19:44)
== END 2019-01-22 20:27 | disposition home or self-care (01) ==
PROVIDERS: Emergency Provider Physician Assistant; PCP Family Medicine
DX: J44.1 Chronic obstructive pulmonary disease with (acute) exacerbation (principal); J44.0 Chronic obstructive pulmonary disease with (acute) lower respiratory infection; J20.9 Acute bronchitis, unspecified; I25.2 Old myocardial infarction; I10 Essential (primary) hypertension; Z87.891 Personal history of nicotine dependence
CPT/HCPCS: 94640; 99283; 71046; J7620

== ENCOUNTER 2019-02-26 01:00 | Outpatient (CLI) | payer MEDICARE, SELFPAY ==
--- NOTE | 2019-02-26 14:08 | DI.US_ITS ---
SYMPTOM/DIAGNOSIS: RIGHT CAROTID BRUIT, R09.89 I 28.0 ARTERIOVENOUS FISTULA PULMONARY VESSELS CAROTID ULTRASOUND: Routine examination was performed. On the right there is mild to moderate carotid plaque seen in the carotid bulb, proximal external and proximal internal carotid arteries. No hemodynamically significant velocity elevations are seen on the right. The right vertebral artery is antegrade. On the left there is calcific plaque seen in the common carotid artery, the carotid bulb and the proximal internal carotid artery. There is elevation of the velocity in the left internal carotid artery consistent with 50-60% internal artery stenosis. The left vertebral artery is antegrade. IMPRESSION: 1. No hemodynamically significant right internal carotid artery stenosis. 2. Left internal carotid artery stenosis on the order of 50-60%
== END 2019-02-26 01:20 ==
PROVIDERS: PCP Family Medicine; Visit Provider Family Medicine
DX: I28.0 Arteriovenous fistula of pulmonary vessels (principal); R09.89 Other specified symptoms and signs involving the circulatory and respiratory systems; I65.22 Occlusion and stenosis of left carotid artery
CPT/HCPCS: 93880

== ENCOUNTER 2019-06-03 17:28 | Emergency (ER) | payer MEDICARE, SELFPAY ==
[2019-06-03 17:34] VITALS: BP 154/66; PULSE 83; RESP 16; TEMP 36.4; O2SAT 95
--- NOTE | 2019-06-03 18:05 | W.ED.GENAD ---
Discharge Plan Disposition Patient Disposition: HOME Condition: Stable Discharge Details Chief Complaint: HeadInjury Clinical Impression: Closed head injury without loss of consciousness, Muscle strain of upper arm, Fall at home Primary Care Provider: John Diaz ED Provider: Cynthia Omalley Home Meds and New Rx's Prescriptions: Continued hydroxychloroquine 200 mg tablet 200 mg PO DAILY Qty: 90 RF: 4 doxycycline hyclate 100 mg tablet 100 mg PO BID Qty: 20 RF: 0 albuterol sulfate 2.5 mg /3 mL (0.083 %) solution for nebulization 2.5 mg Inhalation Q4H PRN PRN (Reason: shortness of breath or wheezing) 30 Days Qty: 30 RF: 2 doxycycline hyclate 100 mg tablet 100 mg PO BID Qty: 20 RF: 0 levothyroxine 50 mcg tablet 50 mcg PO DAILY Qty: 90 RF: 4 lisinopril 2.5 mg tablet 2.5 mg PO DAILY Qty: 90 RF: 4 metoprolol succinate 25 mg tablet extended release 24 hr 25 mg PO DAILY Qty: 90 RF: 4 epinephrine [EpiPen 2-Mikel] 0.3 MG/0.3 ML auto-injector 0.3 mg IM ONCE Qty: 1 RF: 3 Stiolto Respimat 2.5-2.5 mcg/actuation mist 2 puff IH DAILY Qty: 4 RF: 4 citalopram 20 mg tablet 40 mg PO DAILY Qty: 180 RF: 3 gabapentin 300 mg capsule 300 mg PO 1 tab am, 2tabs pm Qty: 270 RF: 4 atorvastatin 80 mg tablet 80 mg PO QPM Qty: 90 RF: 4 lorazepam 1 mg tablet 1 - 2 mg PO HS MDD 2 mg Qty: 40 RF: 1 triamterene-hydrochlorothiazid 37.5-25 mg capsule 1 cap PO DAILY Qty: 90 RF: 4 Combivent Respimat 20-100 mcg/actuation mist 1 puff Inhalation Q4H PRN (Reason: Exacerbation COPD) Qty: 3 RF: 4 zinc oxide 20 % Ointment 60 g topical TID Qty: 0 RF: 0 magnesium oxide 400 mg (241.3 mg magnesium) Tablet 400 mg PO DAILY Qty: 14 RF: 0 clotrimazole 1 % Cream 60 g topical TID Qty: 0 RF: 0 acidophilus-pectin, citrus 25 million cell -100 mg Tablet 1 cap PO TID Qty: 15 RF: 0 vits A and D-white pet-lanolin Ointment 60 g topical TID Qty: 0 RF: 0 (DME) Space Chamber Plus 1 EACH spacer 1 ea Miscellaneous PRN Qty: 1 RF: 0 PROVENTIL HFA 18 GM HFA.AER.AD 2 puff Inhalation Q6H PRN Qty: 1 RF: 11 acetaminophen [Tylenol] 325 MG tablet 650 mg PO Q4H PRN PRNRF: 0 aspirin 81 MG tablet,delayed release (DR/EC) 81 mg PO DAILY RF: 0 nitroglycerin [Nitrostat] 0.4 MG tablet, sublingual 0.4 mg Sublingual Q5 MIN PRN X3 PRN (Reason: Chest Pain) RF: 0 Discharge Instructions Instructions: Muscle Strain (ED), Head Injury (ED) Additional Instructions: Drink plenty of fluids and get plenty of rest. You can alternate ice and heat to your arms for 20 minutes at a time several times daily. You can also alternate Tylenol and Motrin as needed and directed. Follow-up with your primary care doctor within the next week for reevaluation. Return immediately to the emergency department if you develop any worsening or new concerning symptoms of headache, vomiting, dizziness. Discharge Data Discharge Date/Time-TO BE ENTERED AT DEPARTURE: 06/03/19 18:50 Discharge Physician: Cynthia Omalley Medical Decision Making 68-year-old female with history of GERD, lupus, CAD, NSTEMI, hypothyroidism, COPD who presents to the ED for evaluation after fall out of bed this morning. She states she struck her right forehead on the ground. She is complaining of bilateral forearm pain but she is unsure of injury to her arms. She denies any headache, neck pain, back pain, chest pain, abdominal pain or other extremity pain. She denies LOC or vomiting. Vitals within normal limits. Patient appears nontoxic. Vitals within normal limits. She has a contusion to her right forehead but no step-off, open wounds or hematoma. No spinal tenderness. Chest and abdomen nontender. She complains of pain in her bilateral forearms but they are nontender with normal ROM and without evidence of trauma or deformity. She is neurovascularly intact. No focal deficits. Discussed with patient that considering her age with head injury, we could proceed with CT head and cervical spine but she is declining this at this time. She was also offered x-rays of her shoulders and humerus but declined this. She stated she just wanted evaluation so she could travel to [place] tomorrow if possible. I advised that with her head injury, would possibly hold on trip tomorrow as she is driving herself. Advised that she remain local for the next few days in case symptoms do not improve or worsen. Patient states she was hoping to not have to go to [place] and is agreeable with this plan. She is advised to alternate Tylenol and Motrin, ice and heat to her bilateral upper arms. She is advised to follow-up with her primary care doctor for reevaluation and to return here at any time if worse. HPI General Mode of arrival: ambulatory. Date/Time Provider Initiated Documentation: 06/03/19 17:40. Limitations to Documentation: no limitations. Information obtained by: patient. HPI Narrative: Patient is a 68-year-old female with a history of GERD, CAD, anxiety, COPD, NSTEMI who presents for evaluation after fall out of bed this morning. Patient states she is not sure how she fell but she thinks that she turned in bed and fell off striking her right forehead on the ground. She admits to a bruise to her right forehead but denies any history of LOC, headache, blurry vision, dizziness, nausea or vomiting or neck pain. She states her main complaint is pain in her bilateral upper arms which she feels is muscle pain or strain. She states she is unsure if she struck her arms on the ground or used her arms to brace her fall that happened quickly. She denies chest pain, abdominal pain, hip or leg pain. She states she is traveling to [place] tomorrow and just came today for evaluation making sure she was okay to travel. Related Data Home Medications Medication Instructions Recorded Confirmed epinephrine [EpiPen 2-Mikel] 0.3 mg IM ONCE #1 ea 12/14/17 06/03/19 Proventil Hfa 2 puff INHALATION Q6H PRN #1 01/11/18 06/03/19 inhaler Space Chamber Plus #1 spacer 01/11/18 05/23/19 acetaminophen [Tylenol] 650 mg PO Q4H PRN PRN tab 03/01/18 06/03/19 aspirin 81 mg PO DAILY tabec 03/01/18 06/03/19 nitroglycerin [Nitrostat] 0.4 mg SUBLINGUAL Q5 MIN PRN X3 03/01/18 06/03/19 PRN tab tiotropium 2.5 mcg-olodaterol 2.5 2 puff IH DAILY #4 gm 06/04/18 06/03/19 mcg/actuation mist for inhalation acidophilus-pectin, citrus 1 cap PO TID #15 tab 10/09/18 06/03/19 clotrimazole 60 g TOPICAL TID #0 g 10/09/18 06/03/19 magnesium oxide 400 mg PO DAILY #14 tab 10/09/18 06/03/19 vits A and D-white pet-lanolin 60 g TOPICAL TID #0 g 10/09/18 06/03/19 zinc oxide 60 g TOPICAL TID #0 g 10/09/18 06/03/19 citalopram 20 mg tablet 40 mg PO DAILY #180 tab-cap 10/14/18 06/03/19 gabapentin 300 mg capsule 300 mg PO 1 tab am, 2tabs pm #270 10/23/18 06/03/19 tab hydroxychloroquine 200 mg tablet 200 mg PO DAILY #90 tab-cap 11/08/18 06/03/19 atorvastatin 80 mg tablet 80 mg PO QPM #90 tab 02/27/19 06/03/19 albuterol sulfate 2.5 mg INHALATION Q4H PRN PRN 30 04/04/19 06/03/19 Days #30 vial doxycycline hyclate 100 mg tablet 100 mg PO BID #20 tab 04/04/19 06/03/19 lorazepam 1 mg tablet 1 - 2 mg PO HS #40 tab MDD 2 mg 04/23/19 06/03/19 triamterene 37.5 1 cap PO DAILY #90 tab-cap 04/23/19 06/03/19 mg-hydrochlorothiazide 25 mg capsule ipratropium 20 mcg-albuterol 100 1 puff INHALATION Q4H PRN #3 gm 05/15/19 06/03/19 mcg/actuation mist for inhalation doxycycline hyclate 100 mg tablet 100 mg PO BID #20 tab 05/23/19 06/03/19 levothyroxine 50 mcg tablet 50 mcg PO DAILY #90 tab-cap 05/23/19 06/03/19 lisinopril 2.5 mg tablet 2.5 mg PO DAILY #90 tab-cap 05/23/19 06/03/19 metoprolol succinate 25 mg 25 mg PO DAILY #90 tab 05/23/19 06/03/19 tablet,extended release 24 hr Previous Rx's Medication Instructions Recorded epinephrine [EpiPen 2-Mikel] 0.3 mg IM ONCE #1 ea 12/14/17 Proventil Hfa 2 puff INHALATION Q6H PRN #1 01/11/18 inhaler Space Chamber Plus #1 spacer 01/11/18 acetaminophen [Tylenol] 650 mg PO Q4H PRN PRN tab 03/01/18 aspirin 81 mg PO DAILY tabec 03/01/18 nitroglycerin [Nitrostat] 0.4 mg SUBLINGUAL Q5 MIN PRN X3 03/01/18 PRN tab tiotropium 2.5 mcg-olodaterol 2.5 2 puff IH DAILY #4 gm 06/04/18 mcg/actuation mist for inhalation acidophilus-pectin, citrus 1 cap PO TID #15 tab 10/09/18 clotrimazole 60 g TOPICAL TID #0 g 10/09/18 magnesium oxide 400 mg PO DAILY #14 tab 10/09/18 vits A and D-white pet-lanolin 60 g TOPICAL TID #0 g 10/09/18 zinc oxide 60 g TOPICAL TID #0 g 10/09/18 citalopram 20 mg tablet 40 mg PO DAILY #180 tab-cap 10/14/18 gabapentin 300 mg capsule 300 mg PO 1 tab am, 2tabs pm #270 10/23/18 tab hydroxychloroquine 200 mg tablet 200 mg PO DAILY #90 tab-cap 11/08/18 atorvastatin 80 mg tablet 80 mg PO QPM #90 tab 02/27/19 albuterol sulfate 2.5 mg INHALATION Q4H PRN PRN 30 04/04/19 Days #30 vial doxycycline hyclate 100 mg tablet 100 mg PO BID #20 tab 04/04/19 lorazepam 1 mg tablet 1 - 2 mg PO HS #40 tab MDD 2 mg 04/23/19 triamterene 37.5 1 cap PO DAILY #90 tab-cap 04/23/19 mg-hydrochlorothiazide 25 mg capsule ipratropium 20 mcg-albuterol 100 1 puff INHALATION Q4H PRN #3 gm 05/15/19 mcg/actuation mist for inhalation doxycycline hyclate 100 mg tablet 100 mg PO BID #20 tab 05/23/19 levothyroxine 50 mcg tablet 50 mcg PO DAILY #90 tab-cap 05/23/19 lisinopril 2.5 mg tablet 2.5 mg PO DAILY #90 tab-cap 05/23/19 metoprolol succinate 25 mg 25 mg PO DAILY #90 tab 05/23/19 tablet,extended release 24 hr Allergies Allergy/AdvReac Type Severity Reaction Status Date / Time bee venom protein (honey bee) Allergy Severe Anaphylaxsi Unverified 05/23/19 15:41 s tetanus toxoid, adsorbed Allergy Severe swelling,fe Unverified 05/23/19 15:41 geneva benzonatate Allergy Mild rash Unverified 05/23/19 15:41 [From Tessalon Erlin] sulfamethoxazole Allergy Itching Verified 05/23/19 15:41 amoxicillin trihydrate AdvReac Intermediate Diarrhea - Unverified 05/23/19 15:41 [From Augmentin] Severe potassium clavulanate AdvReac Intermediate Diarrhea - Unverified 05/23/19 15:41 [From Augmentin] Severe insects Allergy Severe Anaphylaxsi Uncoded 05/23/19 15:41 s General Stated Complaint: HeadInjury HOLLIS: 3 Review of Systems All systems reviewed & are unremarkable except as noted in HPI and below Constitutional Constitutional: Reports as per HPI, Denies chills and Denies fever(s) Eyes Eyes: Denies blurry vision ENT Ears, Nose, Mouth, and Throat: Denies dizziness, Denies sore throat and Denies throat swelling Cardiovascular Cardiovascular: Denies chest pain and Denies dyspnea Respiratory Respiratory: Denies cough and Denies dyspnea Gastrointestinal Gastrointestinal: Denies abdominal pain, Denies diarrhea and Denies vomiting Genitourinary Genitourinary: Denies hematuria and Denies dysuria Musculoskeletal Musculoskeletal: Denies back pain and Denies numbness Integumentary/Breasts Skin/Breast: Denies lesions and Denies rash Neurologic Neurologic: Denies dizziness, Denies focal weakness and Denies numbness Allergic/Immunologic Allergic/Immunologic: Denies throat swelling [facility] Medical History Anxiety (Chronic 09/03/14) COPD (chronic obstructive pulmonary disease) (Chronic) COPD exacerbation (Inactive) Essential hypertension (Chronic 09/03/14) 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) Hypothyroidism (Chronic 09/03/14) Lupus (systemic lupus erythematosus) (Chronic 09/03/14) NSTEMI (non-ST elevated myocardial infarction) (Chronic) 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) Surgical History History of ankle surgery (Inactive) Social History Smoking/Tobacco Use Status: Former Tobacco Use Alcohol Intake: current Alcohol Intake frequency: a few times a month Drug use: Never Substance use type: does not use Household members: children and other Details: 4 WITH 3 SONS Duration: 15-30 minutes/day Frequency: 1-2 times per week Seatbelt use: always Do you feel safe at home: Yes Do you feel safe in your relationship?: Yes Exam Const General: cooperative and healthy appearing Orientation: alert and awake HENLA Head: normal to inspection, no palpable skull fracture and normocephalic Head images: 1. Patchy ecchymosis to right forehead, no hematoma, appears to have purplish and greenish discoloration. No open wounds. No tenderness to palpation. Ears: hearing grossly normal bilaterally, external ears normal and TM's normal bilaterally General nose exam: external nose normal Face and sinus: normal facial exam Mouth: oral mucosae normal Teeth and gingiva: dentition normal Throat: posterior oropharynx normal Eyes General: appearance normal, both eyes and all related structures Eyelids: eyelids normal Pupils: PERRL EOM: EOM intact bilaterally Neck Neck: normal visual inspection Lymphatic: no lymphadenopathy noted Chest Chest: normal inspection of the chest, normal palpation of entire chest wall and no tenderness Resp Effort & Inspection: normal respiratory effort and able to speak in complete sentences Auscultation: clear to auscultation bilaterally Cardio Rate: regular rate Rhythm: regular rhythm GI Inspection: normal to inspection Palpation: soft, not firm, no guarding, no hepatosplenomegaly, no masses and nontender Auscultation: normal bowel sounds Back/Spine/Pelvis Back: no CVA tenderness Cervical Spine: No cervical spinal tenderness Thoracic/Lumbar Spine: No thoracic spinal tenderness and No lumbar spinal tenderness Pelvis: no pain with anterior-posterior compression Skin General skin exam: no rashes or lesions noted Neuro General: alert and awake Cognition: normal cognition Speech: speech normal Gait: normal gait Motor: muscle tone normal throughout Sensory Exam: no sensory deficits noted Extrem General: normal to inspection, full ROM and normal capillary refill Other: No tenderness to palpation of bilateral shoulders, upper arm, elbow, forearm or wrist. No bilateral snuffbox tenderness. Normal range of motion of bilateral shoulders, elbows, wrist without pain or deformity. Bilateral radial and ulnar pulses intact. Normal range of motion of bilateral hips, knees and ankles without pain or deformity. Psych Appearance: grossly normal Mental Status: mental status grossly normal Speech and Movement: speech and movement normal Affect: normal affect Thought Process: normal Course Vital Signs Vital signs: Vital Signs Temperature 97.5 F L 06/03/19 17:34 Pulse 83 06/03/19 17:34 Respiratory Rate 16 06/03/19 17:34 Blood Pressure 154/66 H 06/03/19 17:34 Pulse Oximetry 95 06/03/19 17:34 Temperature 97.5 F L 06/03/19 17:34 Temperature Source Skin 06/03/19 17:34 Pulse 83 06/03/19 17:34 Respiratory Rate 16 06/03/19 17:34 Respiratory Effort Non-Labored 06/03/19 17:57 Respiratory Depth Normal 06/03/19 17:57 Respiratory Pattern Normal 06/03/19 17:57 Blood Pressure 154/66 H 06/03/19 17:34 Blood Pressure Position Sitting 06/03/19 17:34 Pulse Oximetry 95 06/03/19 17:34 Oxygen Delivery Method Room Air 06/03/19 17:34 Oxygen Flow Rate 0 06/03/19 17:34 Pain Level 3 06/03/19 17:57
== END 2019-06-03 18:50 | disposition home or self-care (01) ==
PROVIDERS: Emergency Provider Physician Assistant; PCP Family Medicine
DX: S00.83XA Contusion of other part of head, initial encounter (principal); S46.911A Strain of unspecified muscle, fascia and tendon at shoulder and upper arm level, right arm, initial encounter; J44.9 Chronic obstructive pulmonary disease, unspecified; W06.XXXA Fall from bed, initial encounter; I10 Essential (primary) hypertension; Z53.29 Procedure and treatment not carried out because of patient's decision for other reasons; Z87.891 Personal history of nicotine dependence
CPT/HCPCS: 99282

== ENCOUNTER 2019-09-21 13:42 | Emergency (ER) | payer MEDICARE, MEDICAID, SELFPAY ==
[2019-09-21 13:47] VITALS: BP 169/55; PULSE 57; TEMP 36.7; O2SAT 96
[2019-09-21 13:50] VITALS: RESP 18
--- NOTE | 2019-09-21 15:09 | ED.GENADUL_ITS ---
Discharge Plan Disposition Patient Disposition: HOME Condition: Good Discharge Details Chief Complaint: GenMedical Clinical Impression: Medication not available from pharmacy Primary Care Provider: John Diaz ED Provider: Meggan Hernandez [place] Meds and New Rx's Prescriptions: Continued hydroxychloroquine 200 mg tablet 200 mg PO DAILY Qty: 90 RF: 4 albuterol sulfate 2.5 mg /3 mL (0.083 %) solution for nebulization 2.5 mg Inhalation Q4H PRN PRN (Reason: shortness of breath or wheezing) 30 Days Qty: 30 RF: 2 levothyroxine 50 mcg tablet 50 mcg PO DAILY Qty: 90 RF: 4 lisinopril 2.5 mg tablet 2.5 mg PO DAILY Qty: 90 RF: 4 metoprolol succinate 25 mg tablet extended release 24 hr 25 mg PO DAILY Qty: 90 RF: 4 doxycycline hyclate 100 mg tablet 100 mg PO BID Qty: 20 RF: 0 prednisone 20 mg tablet 40 mg PO DAILY Qty: 14 RF: 0 epinephrine [EpiPen 2-Mikel] 0.3 MG/0.3 ML auto-injector 0.3 mg IM ONCE Qty: 1 RF: 3 Stiolto Respimat 2.5-2.5 mcg/actuation mist 2 puff IH DAILY Qty: 4 RF: 4 citalopram 20 mg tablet 40 mg PO DAILY Qty: 180 RF: 3 gabapentin 300 mg capsule 300 mg PO 1 tab am, 2tabs pm Qty: 270 RF: 4 atorvastatin 80 mg tablet 80 mg PO QPM Qty: 90 RF: 4 triamterene-hydrochlorothiazid 37.5-25 mg capsule 1 cap PO DAILY Qty: 90 RF: 4 Combivent Respimat 20-100 mcg/actuation mist 1 puff Inhalation Q4H PRN (Reason: Exacerbation COPD) Qty: 3 RF: 4 lorazepam 1 mg tablet 1 - 2 mg PO HS MDD 2 mg Qty: 40 RF: 1 zinc oxide 20 % Ointment 60 g topical TID Qty: 0 RF: 0 magnesium oxide 400 mg (241.3 mg magnesium) Tablet 400 mg PO DAILY Qty: 14 RF: 0 clotrimazole 1 % Cream 60 g topical TID Qty: 0 RF: 0 acidophilus-pectin, citrus 25 million cell -100 mg Tablet 1 cap PO TID Qty: 15 RF: 0 vits A and D-white pet-lanolin Ointment 60 g topical TID Qty: 0 RF: 0 (DME) Space Chamber Plus 1 EACH spacer 1 ea Miscellaneous PRN Qty: 1 RF: 0 PROVENTIL HFA 18 GM HFA.AER.AD 2 puff Inhalation Q6H PRN Qty: 1 RF: 11 acetaminophen [Tylenol] 325 MG tablet 650 mg PO Q4H PRN PRNRF: 0 aspirin 81 MG tablet,delayed release (DR/EC) 81 mg PO DAILY RF: 0 nitroglycerin [Nitrostat] 0.4 MG tablet, sublingual 0.4 mg Sublingual Q5 MIN PRN X3 PRN (Reason: Chest Pain) RF: 0 Discharge Instructions Additional Instructions: Please follow the recommendations set forth by care management and contact [facility] tomorrow. Please also contact your primary care to discuss your medication issues further. If you develop shortness of breath, difficulty breathing or other new/worsening symptoms please seek care urgently once again. Referrals: John Diaz MD [Primary Care Provider] - Discharge Data Discharge Date/Time-TO BE ENTERED AT DEPARTURE: 09/21/19 16:30 Medical Decision Making Patient is a pleasant 68-year-old female presenting today with chief complaint of difficulty with insurance. She not having any acute medical complaints. No fevers or chills. She reports that she has COPD and has not been able to use her inhalers. Despite this, patient is not having any acute symptoms. Contacted care management who evaluated the patient. They have encouraged that she follow-up with [facility]. Patient has been picking up her Ativan per the PDMP. Also encouraged that she follow-up with her primary care provider to discuss this further. Encouraged that should she have any COPD exa cerbation she seek care in the emergency department once again. All of her questions and concerns were addressed and she is in agreement this plan. HPI General Mode of arrival: ambulatory . Date/Time Provider Initiated Documentation: 09/21/19 14:49 . Limitations to Documentation: no limitations . Information obtained by: patient and RN notes reviewed . HPI Narrative: Patient is a pleasant 68-year-old female presents today with difficulty with insurance. She reports that she is not been able to obtain her medications in the past 3 weeks secondary to difficulty with insurance. She reports that she had refinance her house and included her son's income on this. She reports that this then caused issues with her ability to keep her insurance. 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 Currently feeling short of breath. She has O2 at home but has not needed to use this. Symptoms be primarily concerned about her inhalers. Related Data Home Medications Medication Instructions Recorded Confirmed epinephrine [EpiPen 2-Mikel] 0.3 mg IM ONCE #1 ea 12/14/17 09/23/19 Proventil Hfa 2 puff INHALATION Q6H PRN #1 01/11/18 09/23/19 inhaler Space Chamber Plus #1 spacer 01/11/18 09/23/19 acetaminophen [Tylenol] 650 mg PO Q4H PRN PRN tab 03/01/18 09/23/19 aspirin 81 mg PO DAILY tabec 03/01/18 09/23/19 nitroglycerin [Nitrostat] 0.4 mg SUBLINGUAL Q5 MIN PRN X3 03/01/18 09/23/19 PRN tab tiotropium 2.5 mcg-olodaterol 2.5 2 puff IH DAILY #4 gm 06/04/18 09/23/19 mcg/actuation mist for inhalation acidophilus-pectin, citrus 1 cap PO TID #15 tab 10/09/18 09/23/19 clotrimazole 60 g TOPICAL TID #0 g 10/09/18 09/23/19 magnesium oxide 400 mg PO DAILY #14 tab 10/09/18 09/23/19 vits A and D-white pet-lanolin 60 g TOPICAL TID #0 g 10/09/18 09/23/19 zinc oxide 60 g TOPICAL TID #0 g 10/09/18 09/23/19 citalopram 20 mg tablet 40 mg PO DAILY #180 tab-cap 10/14/18 09/23/19 gabapentin 300 mg capsule 300 mg PO 1 tab am, 2tabs pm #270 10/23/18 09/23/19 tab hydroxychloroquine 200 mg tablet 200 mg PO DAILY #90 tab-cap 11/08/18 09/23/19 atorvastatin 80 mg tablet 80 mg PO QPM #90 tab 02/27/19 09/23/19 albuterol sulfate 2.5 mg INHALATION Q4H PRN PRN 30 04/04/19 09/23/19 Days #30 vial triamterene 37.5 1 cap PO DAILY #90 tab-cap 04/23/19 09/23/19 mg-hydrochlorothiazide 25 mg capsule ipratropium 20 mcg-albuterol 100 1 puff INHALATION Q4H PRN #3 gm 05/15/19 0 09/23/19 mcg/actuation mist for inhalation levothyroxine 50 mcg tablet 50 mcg PO DAILY #90 tab-cap 05/23/19 09/23/19 lisinopril 2.5 mg tablet 2.5 mg PO DAILY #90 tab-cap 05/23/19 09/23/19 metoprolol succinate 25 mg 25 mg PO DAILY #90 tab 05/23/19 09/23/19 tablet,extended release 24 hr doxycycline hyclate 100 mg tablet 100 mg PO BID #20 tab 07/25/19 09/23/19 prednisone 20 mg tablet 40 mg PO DAILY #14 tab 07/25/19 09/23/19 lorazepam 1 mg tablet 1 - 2 mg PO HS #40 tab MDD 2 mg 09/10/19 09/23/19 Previous Rx's Medication Instructions Recorded epinephrine [EpiPen 2-Mikel] 0.3 mg IM ONCE #1 ea 12/14/17 Proventil Hfa 2 puff INHALATION Q6H PRN #1 01/11/18 inhaler Space Chamber Plus #1 spacer 01/11/18 acetaminophen [Tylenol] 650 mg PO Q4H PRN PRN tab 03/01/18 aspirin 81 mg PO DAILY tabec 03/01/18 nitroglycerin [Nitrostat] 0.4 mg SUBLINGUAL Q5 MIN PRN X3 03/01/18 PRN tab tiotropium 2.5 mcg-olodaterol 2.5 2 puff IH DAILY #4 gm 06/04/18 mcg/actuation mist for inhalation acidophilus-pectin, citrus 1 cap PO TID #15 tab 10/09/18 clotrimazole 60 g TOPICAL TID #0 g 10/09/18 magnesium oxide 400 mg PO DAILY #14 tab 10/09/18 vits A and D-white pet-lanolin 60 g TOPICAL TID #0 g 10/09/18 zinc oxide 60 g TOPICAL TID #0 g 10/09/18 citalopram 20 mg tablet 40 mg PO DAILY #180 tab-cap 10/14/18 gabapentin 300 mg capsule 300 mg PO 1 tab am, 2tabs pm #270 10/23/18 tab hydroxychloroquine 200 mg tablet 200 mg PO DAILY #90 tab-cap 11/08/18 atorvastatin 80 mg tablet 80 mg PO QPM #90 tab 02/27/19 albuterol sulfate 2.5 mg INHALATION Q4H PRN PRN 30 04/04/19 Days #30 vial triamterene 37.5 1 cap PO DAILY #90 tab-cap 04/23/19 mg-hydrochlorothiazide 25 mg capsule ipratropium 20 mcg-albuterol 100 1 puff INHALATION Q4H PRN #3 gm 05/15/19 mcg/actuation mist for inhalation levothyroxine 50 mcg tablet 50 mcg PO DAILY #90 tab-cap 05/23/19 lisinopril 2.5 mg tablet 2.5 mg PO DAILY #90 tab-cap 05/23/19 metoprolol succinate 25 mg 25 mg PO DAILY #90 tab 05/23/19 tablet,extended release 24 hr doxycycline hyclate 100 mg tablet 100 mg PO BID #20 tab 07/25/19 prednisone 20 mg tablet 40 mg PO DAILY #14 tab 07/25/19 lorazepam 1 mg tablet 1 - 2 mg PO HS #40 tab MDD 2 mg 09/10/19 Allergies Allergy/AdvReac Type Severity Reaction Status Date / Time bee venom protein (honey bee) Allergy Severe Anaphylaxsi Unverified 09/23/19 15:57 s tetanus toxoid, adsorbed Allergy Severe swelling,fe Unverified 09/23/19 15:57 geneva benzonatate Allergy Mild rash Unverified 09/23/19 15:57 [From Tessalon Perlcyndie] sulfamethoxazole Allergy Itching Verified 09/23/19 15:57 amoxicillin trihydrate AdvReac Intermediate Diarrhea - Unverified 09/23/19 15:57 [From Augmentin] Severe potassium clavulanate AdvReac Intermediate Diarrhea - Unverified 09/23/19 15:57 [From Augmentin] Severe insects Allergy Severe Anaphylaxsi Uncoded 09/23/19 15:57 s General Stated Complaint: GenMedical HOLLIS: 3 Review of Systems Constitutional Constitutional: Reports as per HPI, Denies chills, Denies fatigue, Denies fever(s), Denies headache(s) and Denies weakness Eyes Eyes: Denies change in vision ENT Ears, Nose, Mouth, and Throat: Denies headache(s) Cardiovascular Cardiovascular: Reports as per HPI, Denies chest pain, Denies lightheadedness, Denies dyspnea and Denies dyspnea on exertion Respiratory Respiratory: Reports as per HPI, Denies cough, Denies dyspnea and Denies dyspnea on exertion Gastrointestinal Gastrointestinal: Reports as per HPI, Denies abdominal pain, Denies change in bowel habits, Denies nausea and Denies vomiting Musculoskeletal Musculoskeletal: Denies abnormal gait Integumentary/Breasts Skin/Breast: Reports as per HPI and Denies rash Neurologic Neurologic: Denies abnormal movements, Denies abnormal speech, Denies abnormal gait, Denies headache(s), Denies paresthesias and Denies weakness Endocrine Endocrine: Denies fatigue [facility] Social History Smoking/Tobacco Use Status: Former Tobacco Use Alcohol Intake: current Alcohol Intake frequency: a few times a month Drug use: Never Substance use type: does not use Household members: children and other Details: 4 WITH 3 SONS Duration: 15-30 minutes/day Frequency: 1-2 times per week Seatbelt use: always Do you feel safe at home: Yes Do you feel safe in your relationship?: Yes Exam Const General: cooperative, healthy appearing, comfortable, no acute distress, well developed and well groomed Nutritional Appearance: average body habitus and well nourished Orientation: alert and awake Eyes General: appearance normal, both eyes and all related structures Resp Effort & Inspection: normal respiratory effort, able to speak in complete sentences and no respiratory distress Auscultation: clear to auscultation bilaterally, no rales, no rhonchi and no wheezes Cardio Rate: regular rate Rhythm: regular rhythm Heart Sounds: S1 normal and S2 normal Skin General skin exam: no rashes or lesions noted Trauma: no lacerations or abrasions Neuro General: alert and awake Cognition: normal cognition Speech: speech normal Gait: normal gait Course Vital Signs Vital signs: Vital Signs Temperature 36.7 C 09/21/19 13:47 Pulse 57 L 09/21/19 13:47 Blood Pressure 169/55 H 09/21/19 13:47 Pulse Oximetry 96 09/21/19 13:47 Temperature 36.7 C 09/21/19 13:47 Temperature Source Temporal Artery Scan 09/21/19 13:47 Pulse 57 L 09/21/19 13:47 Respiratory Rate 18 09/21/19 13:50 Respiratory Effort Non-Labored 09/21/19 13:50 Respiratory Depth Shallow 09/21/19 13:50 Respiratory Pattern Normal 09/21/19 13:50 Blood Pressure 169/55 H 09/21/19 13:47 Blood Pressure Position Sitting 09/21/19 13:47 Pulse Oximetry 96 09/21/19 13:47 Oxygen Delivery Method Room Air 09/21/19 13:47 Oxygen Flow Rate 0 09/21/19 13:47 Pain Level 0 09/21/19 13:47
== END 2019-09-21 16:30 | disposition home or self-care (01) ==
PROVIDERS: Emergency Provider Physician Assistant; PCP Family Medicine
DX: Z71.1 Person with feared health complaint in whom no diagnosis is made (principal); J44.9 Chronic obstructive pulmonary disease, unspecified
CPT/HCPCS: 99281

== ENCOUNTER 2020-05-07 17:21 | Emergency (ER) | payer MEDICARE, MEDICAID, SELFPAY ==
[2020-05-07] VITALS (18 sets, daily range): BP systolic 111–174; BP diastolic 44–99; PULSE 79–128; RESP 9–27; TEMP 36.7; O2SAT 90–100
--- NOTE | 2020-05-07 17:30 | RT.EKG_ITS ---
APPROVED REPORT Exam: Resting ECG Patient Location: E HR:79 bpm ECG Measurements Heart Rate 79 AXIS MS 118 P 88 QRSd 73 QRS 69 QT 345 T 217 QTc 396 Conclusion EKG 17: 49 Rate 79, intervals normal, notable artifact in V3 through V6 secondary to patient's belly breathing f rom COPD exacerbation. No evidence of STEMI, Q waves present in lead III. However no significant ch anges from 01/14/2019
--- NOTE | 2020-05-07 17:30 | DI.RAD_ITS ---
EXAM: XR PORTABLE CHEST AP CLINICAL HISTORY: chest pain and SOB TECHNIQUE: COMPARISON: CR XR CHEST 2V PA LATERAL from 01/22/2019 FINDINGS: Heart is not enlarged. Lungs are grossly clear except for changes of scarring. No pleural effusion on this frontal film. IMPRESSION: No evidence of acute change. No change from 01/22/2019. RADIATION DOSE DELIVERED: Total DLP
--- NOTE | 2020-05-07 17:38 | W.ED.GENAD ---
Discharge Plan Disposition Patient Disposition: HOME Condition: Good Discharge Details Clinical Impression: COPD exacerbation Primary Care Provider: Gabby Castaneda ED Provider: Marshall Fernandez Home Meds and New Rx's Prescriptions: New ipratropium-albuterol 0.5 mg-3 mg(2.5 mg base)/3 mL solution for nebulization 3 ml IH Q6H Qty: 90 RF: 1 prednisone 50 MG tablet 50 mg PO DAILY Qty: 5 RF: 0 Continued albuterol sulfate 2.5 mg /3 mL (0.083 %) solution for nebulization 2.5 mg Inhalation Q4H PRN PRN (Reason: shortness of breath or wheezing) 30 Days Qty: 30 RF: 2 levothyroxine 50 mcg tablet 50 mcg PO DAILY Qty: 90 RF: 4 lisinopril 2.5 mg tablet 2.5 mg PO DAILY Qty: 90 RF: 4 metoprolol succinate 25 mg tablet extended release 24 hr 25 mg PO DAILY Qty: 90 RF: 4 doxycycline hyclate 100 mg tablet 100 mg PO BID Qty: 20 RF: 0 hydroxychloroquine 200 mg tablet 200 mg PO DAILY Qty: 90 RF: 4 nitroglycerin [Nitrostat] 0.4 mg tablet, sublingual 0.4 mg Sublingual Q5 MIN PRN X3 PRN (Reason: Chest Pain) Qty: 30 RF: 0 Stiolto Respimat 2.5-2.5 mcg/actuation mist 2 puff IH DAILY Qty: 4 RF: 4 triamterene-hydrochlorothiazid 37.5-25 mg capsule 1 cap PO DAILY Qty: 90 RF: 4 citalopram 20 mg tablet 40 mg PO DAILY Qty: 180 RF: 3 gabapentin 300 mg capsule 300 mg PO 1 tab am, 2tabs pm Qty: 270 RF: 4 lorazepam 1 mg tablet 1 - 2 mg PO HS MDD 2 mg Qty: 40 RF: 1 epinephrine [EpiPen 2-Mikel] 0.3 mg/0.3 mL auto-injector 0.3 mg IM ONCE Qty: 1 RF: 3 atorvastatin 80 mg tablet 80 mg PO QPM Qty: 90 RF: 4 Combivent Respimat 20-100 mcg/actuation mist 1 puff Inhalation Q4H PRN (Reason: Exacerbation COPD) Qty: 3 RF: 4 zinc oxide 20 % Ointment 60 g topical TID Qty: 0 RF: 0 magnesium oxide 400 mg (241.3 mg magnesium) Tablet 400 mg PO DAILY Qty: 14 RF: 0 vits A and D-white pet-lanolin Ointment 60 g topical TID Qty: 0 RF: 0 (DME) Space Chamber Plus 1 EACH spacer 1 ea Miscellaneous PRN Qty: 1 RF: 0 acetaminophen [Tylenol] 325 MG tablet 650 mg PO Q4H PRN PRNRF: 0 aspirin 81 MG tablet,delayed release (DR/EC) 81 mg PO DAILY RF: 0 Discharge Instructions Instructions: COPD (Chronic Obstructive Pulmonary Disease) (ED) Additional Instructions: At this time your symptoms appear indicative of a COPD exacerbation. Thankfully the chest x-ray shows no evidence of pneumonia. Please take the new breathing treatments as directed every 4 hours for the next 3 to 4 days. You can then transition to taking them as needed. Please take the steroid, 50 mg once daily every day for the next 5 days. With no evidence of pneumonia at this time there is no need for antibiotics. However with time if your symptoms do not improve or you develop symptoms of fever or chills this may be indicative of an oncoming pneumonia. At which time it is important to return immediately for reassessment and reevaluation. If you notice any worsening of your symptoms, or any new symptoms such as vomiting, diarrhea, fever, chills, shortness of breath, chest pain, numbness, weakness, or fainting , please return immediately to the emergency department for reevaluation. Please follow up with your primary care provider as soon as possible for reassessment and reevaluation. As always, it was a pleasure participating in your medical care today. Referrals: Gabby Castaneda NP [Primary Care Provider] - Medical Decision Making 69-year-old female presents today for evaluation of shortness of breath and cough. Patient has a history of coronary artery disease, GERD, lupus, petit mall epilepsy, hypothyroidism, hypertension, COPD. Patient states that for the last few days she has had a cough, productive with yellow sputum, shortness of breath, worsened with exertion. Patient admits to some mild chest tightness. She denies any pleuritic chest pain. She denies any arm neck or shoulder pain. Symptoms have been improved with breathing treatments but have gradually worsened over the last few days. She states that this feels notably different from her heart attack in the past. She states that it feels notably more similar to COPD. She does state that initially her symptoms started out more so it is a sinus etiology, she did take an antibiotic doxycycline and this slightly improved her symptoms. However she has been on this antibiotic for a week per the patient. I have extensively reviewed the treatment plan and discharge instructions with the patient. I have addressed all patient concerns at this time. The patient was made aware of what symptoms to monitor for that would warrant a return to the emergency department. Discussed the plan with the patient, they demonstrate verbal understanding and agreement with our assessment and plan at this time. Physical exam demonstrates wheeze on the left more so than the right. No rhonchi or rales. No calf tenderness or swelling or edema in the lower extremities. Signs and symptoms appear clinically consistent with COPD exacerbation in conjunction with bronchitis versus mild pneumonia. She denies any risk factors for coronavirus exposure. Will treat with breathing treatment steroids basic labs although her symptoms appear inconsistent with ACS will perform screening evaluation due to her risk factors. We will monitor closely and reassess. 6:45 PM Patient's laboratory work-up is returned notably unremarkable, no white count, no bandemia, no left shift. VBG is stable, no evidence of CO2 retention, laboratory work-up unremarkable otherwise. Renal function stable, troponin normal, proBNP normal, no suggestive of CHF as a causative agent for symptoms. TSH normal. Influenza test negative. COVID pending. Patient feels much better, oxygen saturation remained stable. We did perform an ambulatory pulse ox and the patient's oxygen saturations remain at 92%. No dips to the 80s whatsoever with ambulation. She states that she is feeling much less short of breath. Chest x-ray is negative for any evidence of pneumonia. With no white count or other abnormality no indication for antibacterial treatment at this time. Signs and symptoms appear clinically consistent with COPD exacerbation, improved by breathing treatments and steroids. Will give duo nebs for home use, steroids for home use. COVID testing is a send out, she will be contacted when the results return per standard protocol. Additionally her symptoms are inconsistent with ACS, especially with the longevity of her symptoms. No indication for repeat troponin at this time. Patient's case was also discussed with her son Carlos Enrique. Patient will be discharged home. Of note she was not on any oxygen here, but she does have oxygen at home which she states that she does not use. No indication for additional oxygen at this time. I have extensively reviewed the treatment plan and discharge instructions with the patient and their family. I have addressed all patient concerns at this time. The patient and family was made aware of what symptoms to monitor for that would warrant a return to the emergency department. Discussed the plan with the patient and family, they demonstrate verbal understanding and agreement with our assessment and plan at this time. EKG 17: 49 Rate 79, intervals normal, notable artifact in V3 through V6 secondary to patient's belly breathing from COPD exacerbation. No evidence of STEMI, Q waves present in lead III. However no significant changes from 01/14/2019 FINDINGS: Lungs: Mild hyperinflation without airspace consolidation. No significant interstitial disease for the degree of inflation. Pleural space: No significant pleural effusion. No pneumothorax. Heart/Mediastinum: No cardiomegaly. Vasculature: Atherosclerosis. Bones/joints: No acute fracture. IMPRESSION: Mild hyperinflation without airspace consolidation. Thank you for allowing us to participate in the care of your patient. Dictated and Authenticated by: Radha Chaudhari MD 05/07/2020 6:16 PM Eastern Time ([place] & [place]) HPI General Date/Time Provider Initiated Documentation: 05/07/20 17:22. HPI Narrative: 69-year-old female presents today for evaluation of shortness of breath and cough. Patient has a history of coronary artery disease, GERD, lupus, petit mall epilepsy, hypothyroidism, hypertension, COPD. Patient states that for the last few days she has had a cough, productive with yellow sputum, shortness of breath, worsened with exertion. Patient admits to some mild chest tightness. She denies any pleuritic chest pain. She denies any arm neck or shoulder pain. Symptoms have been improved with breathing treatments but have gradually worsened over the last few days. She states that this feels notably different from her heart attack in the past. She states that it feels notably more similar to COPD. She does state that initially her symptoms started out more so it is a sinus etiology, she did take an antibiotic doxycycline and this slightly improved her symptoms. However she has been on this antibiotic for a week per the patient. I have extensively reviewed the treatment plan and discharge instructions with the patient. I have addressed all patient concerns at this time. The patient was made aware of what symptoms to monitor for that would warrant a return to the emergency department. Discussed the plan with the patient, they demonstrate verbal understanding and agreement with our assessment and plan at this time. Related Data Home Medications Medication Instructions Recorded Confirmed Space Chamber Plus #1 spacer 01/11/18 05/07/20 acetaminophen [Tylenol] 650 mg PO Q4H PRN PRN tab 03/01/18 05/07/20 aspirin 81 mg PO DAILY tabec 03/01/18 05/07/20 magnesium oxide 400 mg PO DAILY #14 tab 10/09/18 05/07/20 vits A and D-white pet-lanolin 60 g TOPICAL TID #0 g 10/09/18 05/07/20 zinc oxide 60 g TOPICAL TID #0 g 10/09/18 05/07/20 citalopram 20 mg tablet 40 mg PO DAILY #180 tab-cap 10/23/19 05/07/20 gabapentin 300 mg capsule 300 mg PO 1 tab am, 2tabs pm #270 10/29/19 05/07/20 tab albuterol sulfate 2.5 mg INHALATION Q4H PRN PRN 30 11/03/19 05/07/20 Days #30 vial lorazepam 1 mg tablet 1 - 2 mg PO HS #40 tab MDD 2 mg 01/09/20 05/07/20 hydroxychloroquine 200 mg tablet 200 mg PO DAILY #90 tab-cap 01/15/20 05/07/20 nitroglycerin 0.4 mg sublingual 0.4 mg SUBLINGUAL Q5 MIN PRN X3 01/15/20 05/07/20 tablet PRN #30 tab epinephrine 0.3 mg/0.3 mL 0.3 mg IM ONCE #1 ea 01/26/20 05/07/20 injection, auto-injector atorvastatin 80 mg tablet 80 mg PO QPM #90 tab 02/17/20 05/07/20 tiotropium 2.5 mcg-olodaterol 2.5 2 puff IH DAILY #4 gm 02/17/20 05/07/20 mcg/actuation mist for inhalation triamterene 37.5 1 cap PO DAILY #90 tab-cap 02/17/20 05/07/20 mg-hydrochlorothiazide 25 mg capsule ipratropium 20 mcg-albuterol 100 1 puff INHALATION Q4H PRN #3 gm 03/10/20 05/07/20 mcg/actuation mist for inhalation levothyroxine 50 mcg tablet 50 mcg PO DAILY #90 tab-cap 03/16/20 05/07/20 lisinopril 2.5 mg tablet 2.5 mg PO DAILY #90 tab-cap 03/16/20 05/07/20 metoprolol succinate 25 mg 25 mg PO DAILY #90 tab 03/16/20 05/07/20 tablet,extended release 24 hr doxycycline hyclate 100 mg tablet 100 mg PO BID #20 tab 04/16/20 05/07/20 ipratropium-albuterol 3 ml IH Q6H #90 ml 05/07/20 prednisone 50 mg PO DAILY #5 tab 05/07/20 Previous Rx's Medication Instructions Recorded Space Chamber Plus #1 spacer 01/11/18 acetaminophen [Tylenol] 650 mg PO Q4H PRN PRN tab 03/01/18 aspirin 81 mg PO DAILY tabec 03/01/18 magnesium oxide 400 mg PO DAILY #14 tab 10/09/18 vits A and D-white pet-lanolin 60 g TOPICAL TID #0 g 10/09/18 zinc oxide 60 g TOPICAL TID #0 g 10/09/18 citalopram 20 mg tablet 40 mg PO DAILY #180 tab-cap 10/23/19 gabapentin 300 mg capsule 300 mg PO 1 tab am, 2tabs pm #270 10/29/19 tab albuterol sulfate 2.5 mg INHALATION Q4H PRN PRN 30 11/03/19 Days #30 vial lorazepam 1 mg tablet 1 - 2 mg PO HS #40 tab MDD 2 mg 01/09/20 hydroxychloroquine 200 mg tablet 200 mg PO DAILY #90 tab-cap 01/15/20 nitroglycerin 0.4 mg sublingual 0.4 mg SUBLINGUAL Q5 MIN PRN X3 01/15/20 tablet PRN #30 tab epinephrine 0.3 mg/0.3 mL 0.3 mg IM ONCE #1 ea 01/26/20 injection, auto-injector atorvastatin 80 mg tablet 80 mg PO QPM #90 tab 02/17/20 tiotropium 2.5 mcg-olodaterol 2.5 2 puff IH DAILY #4 gm 02/17/20 mcg/actuation mist for inhalation triamterene 37.5 1 cap PO DAILY #90 tab-cap 02/17/20 mg-hydrochlorothiazide 25 mg capsule ipratropium 20 mcg-albuterol 100 1 puff INHALATION Q4H PRN #3 gm 03/10/20 mcg/actuation mist for inhalation levothyroxine 50 mcg tablet 50 mcg PO DAILY #90 tab-cap 03/16/20 lisinopril 2.5 mg tablet 2.5 mg PO DAILY #90 tab-cap 03/16/20 metoprolol succinate 25 mg 25 mg PO DAILY #90 tab 03/16/20 tablet,extended release 24 hr doxycycline hyclate 100 mg tablet 100 mg PO BID #20 tab 04/16/20 ipratropium-albuterol 3 ml IH Q6H #90 ml 05/07/20 prednisone 50 mg PO DAILY #5 tab 05/07/20 Allergies Allergy/AdvReac Type Severity Reaction Status Date / Time bee venom protein (honey bee) Allergy Severe Anaphylaxsi Verified 04/16/20 13:23 s tetanus toxoid, adsorbed Allergy Severe swelling,fe Verified 04/16/20 13:23 geneva benzonatate Allergy Mild rash Verified 04/16/20 13:23 [From Tessalon Perles] sulfamethoxazole Allergy Itching Verified 04/16/20 13:23 amoxicillin trihydrate AdvReac Intermediate Diarrhea - Verified 04/16/20 13:23 [From Augmentin] Severe potassium clavulanate AdvReac Intermediate Diarrhea - Verified 04/16/20 13:23 [From Augmentin] Severe insects Allergy Severe Anaphylaxsi Uncoded 04/16/20 13:23 s General Stated Complaint: SOB HOLLIS: 3 Review of Systems All systems reviewed & are unremarkable except as noted in HPI and below PFSH Medical History (Updated 05/07/20 @ 19:02 by Marshall Fernandez DO) Anxiety (09/03/14) COPD (chronic obstructive pulmonary disease) COPD exacerbation Essential hypertension (09/03/14) Hymenoptera allergy (12/04/14) Hypothyroidism (09/03/14) Lupus (systemic lupus erythematosus) (09/03/14) NSTEMI (non-ST elevated myocardial infarction) Petit mal epilepsy (09/03/14) Surgical History History of ankle surgery Family History Mother Asthma Father Diabetes Grandfather No problems noted. Grandfather No problems noted. Grandmother No problems noted. Grandmother No problems noted. Social History Smoking/Tobacco Use Status: Former Tobacco Use Alcohol Intake: current Alcohol Intake frequency: a few times a month Drug use: Never Substance use type: does not use Household members: children and other Details: 4 WITH 3 SONS Duration: 15-30 minutes/day Frequency: 1-2 times per week Seatbelt use: always Do you feel safe at home: Yes Do you feel safe in your relationship?: Yes Exam Narrative Exam Narrative: 1.Const: Well-nourished, Well-developed, appearing stated age 2.Eyes: PERRL, no conjunctival injection, and symmetrical lids. 3.ENT: Atraumatic external nose and ears. Moist MM. Neck: Symmetric, trachea midline, No thyromegaly. 4.CVS: +S1/S2, No murmurs or gallops. Peripheral pulses 2+ and equal in all extremities. Brisk capillary refill in all extremities. 5.RESP: Mild wheeze in the lower lung fraire, worse on left than the right. No significant rhonchi or rales. 6.GI: Soft, Nontender/Nondistended, No hepatosplenomegaly. No guarding or rebound. 7.MSK: Normocephalic/Atraumatic, Extremities w/o deformity or ttp No cyanosis or clubbing, Normal movement of all extremities 8.Skin: Warm, Dry. No rashes or lesions. 9.Neuro: fitter and turner II-XII grossly intact. Sensation grossly intact, no focal neurologic deficits. 10.Psych: (AAO) x3. Appropriate mood and affect Course Vital Signs Vital signs: Vital Signs Temperature 36.7 C 05/07/20 17:27 Pulse 87 05/07/20 17:27 Respiratory Rate 24 05/07/20 17:27 Blood Pressure 174/68 H 05/07/20 17:27 Pulse Oximetry 90 L 05/07/20 17:27 Temperature 36.7 C 05/07/20 17:27 Temperature Source Skin 05/07/20 17:27 Pulse 87 05/07/20 17:27 Respiratory Rate 24 05/07/20 17:27 Respiratory Effort 05/07/20 17:35 Blood Pressure 174/68 H 05/07/20 17:27 Blood Pressure Position Sitting 05/07/20 17:27 Pulse Oximetry 90 L 05/07/20 17:27 Oxygen Delivery Method Room Air 05/07/20 17:27 Oxygen Flow Rate 0 05/07/20 17:27
[2020-05-07] MEDS: methylPREDNISolone SUCC 125 MG VIAL IVP (17:52)
[2020-05-07] MEDS: Albuterol/Ipratropium 3 ML UPD VIAL 9 ML UPD (17:52)
[2020-05-07 18:13] LABS: BE (Venous) 4 mmol/L (-2-3); HCO3 (Venous) 29 mmol/L (23-28); O2 Sat (Venous) 77 %; TCO2 (Venous) 26 mmol/L (24-29); pCO2 (Venous) 49 mmHg (41-51); pH (Venous) 7.38 (7.31-7.41); pO2 (Venous) 42 mmHg
[2020-05-07 18:14] LABS: Abs Immature Grans 0.02 10^3/uL (0.0-0.06); Absolute Basophil Count 0.04 10^3/uL (0.0-0.2); Absolute Eosinophil Count 0.44 10^3/uL (0.0-0.7); Absolute Monocyte Count 1.05 10^3/uL (0.1-0.8); Absolute Neutrophil Count 5.84 10^3/uL (1.2-6.7); Basophils % 0.5; Eosinophils % 5.1; HCT 42.2 % (36.0-46.0); HGB 13.7 g/dL (11.2-15.7); Immature Grans % 0.2; MCH 28.5 pg (27.0-33.0); MCHC 32.5 % (32.0-36.0); MCV 87.7 fL (80-95); MPV 11.5 fL (8.0-11.0); Monocytes % 12.2; Nucleated RBC 0 %; Platelet Count 262 10^3/uL (130-400); RBC 4.81 10^6/uL (3.93-5.22); RDW 12.4 % (11.7-14.6); WBC 8.59 10^3/uL (4.4-10.8)
--- NOTE | 2020-05-07 18:17 | DI.VRAD_ITS ---
PROCEDURE INFORMATION: Exam: XR Chest, 1 View Exam date and time: 05/07/2020 17:57 Age: 69 years old Clinical indication: Shortness of breath; Patient HX: Chest pain and SOB TECHNIQUE: Imaging protocol: XR of the chest Views: 1 view. COMPARISON: CR XR CHEST 2V PA LATERAL 01/22/2019 19:16 FINDINGS: Lungs: Mild hyperinflation without airspace consolidation. No significant interstitial disease for the degree of inflation. Pleural space: No significant pleural effusion. No pneumothorax. Heart/Mediastinum: No cardiomegaly. Vasculature: Atherosclerosis. Bones/joints: No acute fracture. IMPRESSION: Mild hyperinflation without airspace consolidation. Dictated and Authenticated by: Radha Chaudhari MD. Ordering:MAGGY Olivares MD
[2020-05-07 18:29] LABS: INR 1.1 (0.9-1.1); PTT Activated 25.2 sec (21.0-31.4); Prothrombin Time 11.2 sec (9.3-11.0)
[2020-05-07 18:37] LABS: ALT 20 U/L (14-59); AST 23 U/L (15-37); Albumin 3.3 g/dL (3.4-5.0); Alkaline Phosphatase 74 U/L (46-116); Anion Gap 9.2 mmol/L (3-11); BUN 10 mg/dL (7-18); Bilirubin, Total 0.4 mg/dL (0.2-1.0); CO2 28.8 mmol/L (21.0-32.0); CREATININE 1.09 mg/dL (0.55-1.02); Calcium 9.1 mg/dL (8.5-10.1); Chloride 100 mmol/L (98-107); Estimated GFR 49.48 (mL/min/1.73m2); Glucose 94 mg/dL (74-106); Lipase 81 U/L (73-393); NT-proBNP 128 pg/mL (<300); Potassium 3.5 mmol/L (3.5-5.1); Sodium 138 mmol/L (136-145); TSH (W/Ref FT4) 1.62 uIU/mL (0.36-3.74); Total Protein 7.4 g/dL (6.4-8.2)
[2020-05-07 18:42] LABS: Troponin I < 0.05 ng/mL (<0.06)
[2020-05-08 12:21] LABS: COVID-19 RT-PCR UVMMC Result Negative (Negative)
== END 2020-05-07 19:20 | disposition home or self-care (01) ==
PROVIDERS: Emergency Provider Student in an Organized Health Care Education/Training Program; PCP Nurse Practitioner
DX: J44.1 Chronic obstructive pulmonary disease with (acute) exacerbation (principal); I10 Essential (primary) hypertension; Z03.818 Encounter for observation for suspected exposure to other biological agents ruled out
CPT/HCPCS: 36415; 80053; 82805; 83690; 87449; 93005; 94640; 96374; 99285; U0003; 71045; 83880; 84443; 84484; 85025; 85610; 85730; 93010; J2930; J7620

== ENCOUNTER 2020-07-02 13:39 | Emergency (ER) | payer MEDICARE, MEDICAID, SELFPAY ==
[2020-07-02 13:46] VITALS: BP 134/50; PULSE 66; RESP 16; TEMP 36.3; O2SAT 96
--- NOTE | 2020-07-02 14:22 | DI.RAD_ITS ---
EXAM: XR ANKLE RT COMPLETE CLINICAL HISTORY: anterior lateral swelling and pain, remote fx TECHNIQUE: COMPARISON: No exams were available for comparison FINDINGS: Three views were obtained. There are marked degenerative changes at the tibiotalar joint, there is n arrowing of the cartilaginous joint space and a slight varus talar tilt is present. There are change s of subchondral sclerosis and cyst formation and there is widening of the articular surfaces of the joint. Note is made of an apparent talar beak and poorly defined anterior process of the calcaneus, findings may be associated with a talocalcaneal coalition. There is no evidence of acute fracture or dislocation. 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 No evidence of acute fracture or dislocation. RADIATION DOSE DELIVERED: Total DLP Total DLP
--- NOTE | 2020-07-02 14:37 | ED.GENADUL_ITS ---
Discharge Plan Disposition Patient Disposition: HOME Condition: Stable Discharge Details Clinical Impression: Arthritis of ankle, right Primary Care Provider: Gabby Castaneda ED Provider: Nikko Jalloh Home Meds and New Rx's Prescriptions: Continued levothyroxine 50 mcg tablet 50 mcg PO DAILY Qty: 90 RF: 4 lisinopril 2.5 mg tablet 2.5 mg PO DAILY Qty: 90 RF: 4 metoprolol succinate 25 mg tablet extended release 24 hr 25 mg PO DAILY Qty: 90 RF: 4 hydroxychloroquine 200 mg tablet 200 mg PO DAILY Qty: 90 RF: 4 nitroglycerin [Nitrostat] 0.4 mg tablet, sublingual 0.4 mg Sublingual Q5 MIN PRN X3 PRN (Reason: Chest Pain) Qty: 30 RF: 0 Stiolto Respimat 2.5-2.5 mcg/actuation mist 2 puff IH DAILY Qty: 4 RF: 4 triamterene-hydrochlorothiazid 37.5-25 mg capsule 1 cap PO DAILY Qty: 90 RF: 4 citalopram 20 mg tablet 40 mg PO DAILY Qty: 180 RF: 3 gabapentin 300 mg capsule 300 mg PO 1 tab am, 2tabs pm Qty: 270 RF: 4 epinephrine [EpiPen 2-Mikel] 0.3 mg/0.3 mL auto-injector 0.3 mg IM ONCE Qty: 1 RF: 3 atorvastatin 80 mg tablet 80 mg PO QPM Qty: 90 RF: 4 Combivent Respimat 20-100 mcg/actuation mist 1 puff Inhalation Q4H PRN (Reason: Exacerbation COPD) Qty: 3 RF: 4 lorazepam 1 mg tablet 1 - 2 mg PO HS MDD 2 mg Qty: 40 RF: 5 ipratropium-albuterol 0.5 mg-3 mg(2.5 mg base)/3 mL solution for nebulization 3 ml IH Q6H Qty: 90 RF: 4 magnesium oxide 400 mg (241.3 mg magnesium) Tablet 400 mg PO DAILY Qty: 14 RF: 0 (DME) Space Chamber Plus 1 EACH spacer 1 ea Miscellaneous PRN Qty: 1 RF: 0 aspirin 81 MG tablet,delayed release (DR/EC) 81 mg PO DAILY RF: 0 Discharge Instructions Instructions: Swollen Ankle Joint (ED) Additional Instructions: Please take ibuprofen over the counter. Take 400mg by mouth every 6 hours as needed for pain. Rest your ankle for the next few days. Use crutches and weight-bear as tolerated. Please contact your primary care physician to arrange follow-up. Contact orthopedics if pain persists. Return to the ER for any worsening or new concerning symptoms. Referrals: [facility] [Provider Group] Gabby Castaneda NP [Primary Care Provider] - Discharge Data Discharge Date/Time-TO BE ENTERED AT DEPARTURE: 07/02/20 15:27 Medical Decision Making 69-year-old female with history of remote right ankle fracture dislocation status post remote ORIF, now with swelling and pain anterior lateral ankle with no known recent trauma. Patient is neurovascular intact distally. No warmth or erythema. Concern for osteoarthritis versus less likely recurrent fracture. X-ray of the ankle was reviewed and interpreted by radiology: IMPRESSION:There is no evidence of acute fracture or dislocation. 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 Patient was given ibuprofen 600 mg orally. I recommended ankle brace/splint and patient provided informed refusal. I also recommended crutches for a few days but she declined noting she had crutches at home. Patient was encouraged to follow-up with orthopedics. HPI General Mode of arrival: ambulatory . Date/Time Provider Initiated Documentation: 07/02/20 13:43 . Limitations to Documentation: no limitations . Information obtained by: patient . HPI Narrative: 69-year-old female presents with chief complaint of right ankle pain. Patient notes that her ankles been sore for the past 4 days. Pain is moderate and worse on palpation anterior ankle. No associated redness or warmth. She does have some associated swelling. Patient notes remote fracture dislocation requiring surgery. No recent injury that she recalls. Related Data Home Medications Medication Instructions Recorded Confirmed Space Chamber Plus #1 spacer 01/11/18 07/02/20 aspirin 81 mg PO DAILY tabec 03/01/18 07/02/20 magnesium oxide 400 mg PO DAILY #14 tab 10/09/18 07/02/20 citalopram 20 mg tablet 40 mg PO DAILY #180 tab-cap 10/23/19 07/02/20 gabapentin 300 mg capsule 300 mg PO 1 tab am, 2tabs pm #270 10/29/19 07/02/20 tab hydroxychloroquine 200 mg tablet 200 mg PO DAILY #90 tab-cap 01/15/20 07/02/20 nitroglycerin 0.4 mg sublingual 0.4 mg SUBLINGUAL Q5 MIN PRN X3 01/15/20 07/02/20 tablet PRN #30 tab epinephrine 0.3 mg/0.3 mL 0.3 mg IM ONCE #1 ea 01/26/20 07/02/20 injection, auto-injector atorvastatin 80 mg tablet 80 mg PO QPM #90 tab 02/17/20 07/02/20 tiotropium 2.5 mcg-olodaterol 2.5 2 puff IH DAILY #4 gm 02/17/20 07/02/20 mcg/actuation mist for inhalation triamterene 37.5 1 cap PO DAILY #90 tab-cap 02/17/20 07/02/20 mg-hydrochlorothiazide 25 mg capsule ipratropium 20 mcg-albuterol 100 1 puff INHALATION Q4H PRN #3 gm 03/10/20 07/02/20 mcg/actuation mist for inhalation levothyroxine 50 mcg tablet 50 mcg PO DAILY #90 tab-cap 03/16/20 07/02/20 lisinopril 2.5 mg tablet 2.5 mg PO DAILY #90 tab-cap 03/16/20 07/02/20 metoprolol succinate 25 mg 25 mg PO DAILY #90 tab 03/16/20 07/02/20 tablet,extended release 24 hr lorazepam 1 mg tablet 1 - 2 mg PO HS #40 tab MDD 2 mg 06/01/20 07/02/20 ipratropium 0.5 mg-albuterol 3 mg 3 ml IH Q6H #90 ml 06/25/20 07/02/20 (2.5 mg base)/3 mL nebulization soln Previous Rx's Medication Instructions Recorded Space Chamber Plus #1 spacer 01/11/18 aspirin 81 mg PO DAILY tabec 03/01/18 magnesium oxide 400 mg PO DAILY #14 tab 10/09/18 citalopram 20 mg tablet 40 mg PO DAILY #180 tab-cap 10/23/19 gabapentin 300 mg capsule 300 mg PO 1 tab am, 2tabs pm #270 10/29/19 tab hydroxychloroquine 200 mg tablet 200 mg PO DAILY #90 tab-cap 01/15/20 nitroglycerin 0.4 mg sublingual 0.4 mg SUBLINGUAL Q5 MIN PRN X3 01/15/20 tablet PRN #30 tab epinephrine 0.3 mg/0.3 mL 0.3 mg IM ONCE #1 ea 01/26/20 injection, auto-injector atorvastatin 80 mg tablet 80 mg PO QPM #90 tab 02/17/20 tiotropium 2.5 mcg-olodaterol 2.5 2 puff IH DAILY #4 gm 02/17/20 mcg/actuation mist for inhalation triamterene 37.5 1 cap PO DAILY #90 tab-cap 02/17/20 mg-hydrochlorothiazide 25 mg capsule ipratropium 20 mcg-albuterol 100 1 puff INHALATION Q4H PRN #3 gm 03/10/20 mcg/actuation mist for inhalation levothyroxine 50 mcg tablet 50 mcg PO DAILY #90 tab-cap 03/16/20 lisinopril 2.5 mg tablet 2.5 mg PO DAILY #90 tab-cap 03/16/20 metoprolol succinate 25 mg 25 mg PO DAILY #90 tab 03/16/20 tablet,extended release 24 hr lorazepam 1 mg tablet 1 - 2 mg PO HS #40 tab MDD 2 mg 06/01/20 ipratropium 0.5 mg-albuterol 3 mg 3 ml IH Q6H #90 ml 06/25/20 (2.5 mg base)/3 mL nebulization soln Allergies Allergy/AdvReac Type Severity Reaction Status Date / Time bee venom protein (honey bee) Allergy Severe Anaphylaxsi Verified 07/02/20 13:49 s tetanus toxoid, adsorbed Allergy Severe swelling,fe Verified 07/02/20 13:49 geneva benzonatate Allergy Mild rash Verified 07/02/20 13:49 [From Tessalon Perlcyndie] sulfamethoxazole Allergy Itching Verified 07/02/20 13:49 amoxicillin trihydrate AdvReac Intermediate Diarrhea - Verified 07/02/20 13:49 [From Augmentin] Severe potassium clavulanate AdvReac Intermediate Diarrhea - Verified 07/02/20 13:49 [From Augmentin] Severe insects Allergy Severe Anaphylaxsi Uncoded 07/02/20 13:49 s General Stated Complaint: Orthopedic HOLLIS: 4 Review of Systems Constitutional Constitutional: Denies fever(s) Musculoskeletal Musculoskeletal: Reports as per HPI Integumentary/Breasts Skin/Breast: Denies rash FOR[facility]LY [facility] Medical History Anxiety (09/03/14) COPD (chronic obstructive pulmonary disease) COPD exacerbation Essential hypertension (09/03/14) Hymenoptera allergy (12/04/14) Hypothyroidism (09/03/14) Lupus (systemic lupus erythematosus) (09/03/14) NSTEMI (non-ST elevated myocardial infarction) 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 Grandfather No problems noted. Grandmother No problems noted. Grandmother No problems noted. Social History Smoking/Tobacco Use Status: Former Tobacco Use Smoking risk assessment performed?: Yes Alcohol Intake: current Alcohol Intake frequency: a few times a month Drug use: Never Substance use type: does not use Household members: children and other Details: 4 WITH 3 SONS Duration: 15-30 minutes/day Frequency: 1-2 times per week Seatbelt use: always Do you feel safe at home: Yes Do you feel safe in your relationship?: Yes Exam Const General: cooperative and no acute distress Cardio Rate: regular rate and not tachycardic Rhythm: regular rhythm Skin General skin exam: no rashes or lesions noted Neuro General: patient alert, patient awake and tone normal Extrem General: no edema Right lower extremity: lower leg Details: no tenderness and ankle Details: tenderness Location: anterolaterally, swelling Details: anteriorly, normal ROM and other (Pain with dorsiflexion); no unusual warmth Course Vital Signs Vital signs: Vital Signs Temperature 36.3 C L 07/02/20 13:46 Pulse 66 07/02/20 13:46 Respiratory Rate 16 07/02/20 13:46 Blood Pressure 134/50 L 07/02/20 13:46 Pulse Oximetry 96 07/02/20 13:46 Temperature 36.3 C L 07/02/20 13:46 Temperature Source Skin 07/02/20 13:46 Pulse 66 07/02/20 13:46 Respiratory Rate 16 07/02/20 13:46 Respiratory Effort Non-Labored 07/02/20 13:46 Blood Pressure 134/50 L 07/02/20 13:46 Blood Pressure Position Sitting 07/02/20 13:46 Pulse Oximetry 96 07/02/20 13:46 Oxygen Delivery Method Room Air 07/02/20 13:46 Oxygen Flow Rate 0 07/02/20 13:46 Pain Level 7 07/02/20 13:46
[2020-07-02] MEDS: Ibuprofen 600 MG TAB PO (15:15)
== END 2020-07-02 15:27 | disposition home or self-care (01) ==
LOC: ER 15:20
PROVIDERS: Emergency Provider Student in an Organized Health Care Education/Training Program; PCP Nurse Practitioner
DX: M19.071 Primary osteoarthritis, right ankle and foot (principal); Z87.81 Personal history of (healed) traumatic fracture; I10 Essential (primary) hypertension; J44.9 Chronic obstructive pulmonary disease, unspecified; Z87.891 Personal history of nicotine dependence
CPT/HCPCS: 99283; 73610

== ENCOUNTER 2020-08-13 04:16 | Outpatient (CLI) | payer MEDICARE, MEDICAID, SELFPAY ==
--- NOTE | 2020-08-13 07:45 | DI.MAMMO_ITS ---
EXAM: MG MAMMO SCREENING CLINICAL HISTORY: screening,Z12.39 TECHNIQUE: Bilateral full field digital CC and MLO mammographic images were obtained with 3D tomosyn thesis and utilizing computer aided detection (CAD). COMPARISON: Available for comparison. FINDINGS: Masses/Architectural Distortion: Asymmetric density is seen in the upper outer quadrant of the left b reast not present on the prior examinations. Microcalcifications: No suspicious pleomorphic-type are seen. Skin Thickening/Nipple Retraction: None. IMPRESSION: 1. There is an asymmetric density in the upper-outer quadrant of the left breast not seen on the prio r examinations. 2. Further evaluation with spot compression views are requested. Ultrasound may be indicated at that time. BI-RADS Category 0 - Assessment Incomplete: Need additional imaging evaluation Breast Density - Category B - Scattered areas of fibroglandular density Breast density category C or D implies that the patient has dense breast tissue. Dense breast tissue is very common and is not abnormal but dense breast tissue can make it harder to find cancer on a ma mmogram. Also, dense breast tissue may increase their breast cancer risk. This information about the result of the mammogram report was provided to the patient to raise their awareness. Use this report when you speak with the patient about their risks for breast cancer, which includes their family hist ory. At that time, you may recommend for more screening tests (Ultrasound or MRI) as they might be us eful based on their risk. A negative radiographic report should not delay biopsy if a dominant or clinically suspicious mass is present. Up to ten percent of cancers are not identified on mammography. A negative report may reinforce clinical impression. Adenosis and dense breasts may obscure an underlying neoplasm. False positive reports average 6 to 10%. Patient will receive a letter notifying them of these results.
== END 2020-08-13 04:36 ==
PROVIDERS: PCP Nurse Practitioner; Visit Provider Nurse Practitioner
DX: Z12.31 Encounter for screening mammogram for malignant neoplasm of breast (principal); R92.8 Other abnormal and inconclusive findings on diagnostic imaging of breast
CPT/HCPCS: 77063; 77067

== ENCOUNTER 2020-08-31 02:00 | Outpatient (CLI) | payer MEDICARE, MEDICAID, SELFPAY ==
--- NOTE | 2020-08-31 | DI.MAMMO_ITS ---
EXAM: MG MAMMO SCREEN CALL BACK UNI CLINICAL HISTORY: F/U MAMMO, ASYMMETRIC DENSITY UOQ LT BREST TECHNIQUE: Spot compression views and tomographic imaging were performed. COMPARISON: 13 August 2020 and exams from 2010 through 2015. FINDINGS: The breasts are composed of scattered fibroglandular densities, Breast Density category B. No suspicious masses or suspicious microcalcifications are seen. There is a persistent circumscribed nodule in the upper outer quadrant adjacent to a vessel which lik trevon represents an intramammary lymph node. IMPRESSION: BI-RADS Category 2 - Benign Findings Yearly screening mammography is recommended. Breast Density - Category B, scattered fibroglandular densities.
== END 2020-08-31 02:20 ==
PROVIDERS: PCP Nurse Practitioner; Visit Provider Nurse Practitioner
DX: R92.8 Other abnormal and inconclusive findings on diagnostic imaging of breast (principal); N63.21 Unspecified lump in the left breast, upper outer quadrant
CPT/HCPCS: 77063; 77067

== ENCOUNTER 2021-03-11 10:53 | Emergency (ER) | payer MEDICARE, MEDICAID, SELFPAY ==
[2021-03-11 11:41] VITALS: BP 154/83; PULSE 50; RESP 18; TEMP 36.9; O2SAT 97
--- NOTE | 2021-03-11 11:45 | DI.RAD_ITS ---
Exam(s) XR HIP RT COMPLETE AP PELVIS EXAM: XR HIP RT COMPLETE AP PELVIS CLINICAL HISTORY: pain TECHNIQUE: COMPARISON: No exams were available for comparison FINDINGS: Three views were obtained. There may be mild narrowing of the cartilaginous joint spaces of both hip s. Slight acetabular and femoral head marginal osteophyte formation noted bilaterally. Enthesophyte formation noted on left greater trochanter. No other significant bony or soft tissue abnormality se en. IMPRESSION: Mild DJD both hips. RADIATION DOSE DELIVERED: Total DLP
--- NOTE | 2021-03-11 11:45 | DI.RAD_ITS ---
Exam(s) XR KNEE RT 3V AP,LAT,DIMITRI EXAM: XR KNEE RT 3V AP,LAT,DIMITRI CLINICAL HISTORY: pain TECHNIQUE: COMPARISON: No exams were available for comparison FINDINGS: Three views were obtained. There is an enthesophyte of the superior pole of the patella. Cartilagin ous joint spaces appear fairly well maintained. No other bony or soft tissue abnormality seen. IMPRESSION: RADIATION DOSE DELIVERED: Total DLP
[2021-03-11] MEDS: oxyCODONE 5 mg/Acetaminophen 325 mg TAB 1 TAB PO (12:06)
--- NOTE | 2021-03-11 12:34 | ED.GENADUL_ITS ---
Discharge Plan Disposition Patient Disposition: HOME Condition: Stable Discharge Details Clinical Impression: Hip pain Primary Care Provider: Gabby Castaneda ED Provider: Miguelito Gibbons Home Meds and New Rx's Prescriptions: New lidocaine [Lidoderm] 5 % adhesive patch,medicated 1 patch topical DAILY Qty: 1 RF: 0 Continued nitroglycerin [Nitrostat] 0.4 mg tablet, sublingual 0.4 mg Sublingual Q5 MIN PRN X3 PRN (Reason: Chest Pain) Qty: 30 RF: 0 Stiolto Respimat 2.5-2.5 mcg/actuation mist 2 puff IH DAILY Qty: 4 RF: 4 epinephrine [EpiPen 2-Mikel] 0.3 mg/0.3 mL auto-injector 0.3 mg IM ONCE Qty: 1 RF: 3 ipratropium-albuterol 0.5 mg-3 mg(2.5 mg base)/3 mL solution for nebulization 3 ml IH Q6H Qty: 90 RF: 4 Combivent Respimat 20-100 mcg/actuation mist 1 puff Inhalation Q4H PRN (Reason: Exacerbation COPD) Qty: 4 RF: 4 atorvastatin 80 mg tablet 80 mg PO QPM Qty: 90 RF: 4 citalopram 20 mg tablet 40 mg PO DAILY Qty: 180 RF: 4 hydroxychloroquine 200 mg tablet 200 mg PO DAILY Qty: 90 RF: 4 levothyroxine 50 mcg tablet 50 mcg PO DAILY Qty: 90 RF: 4 lisinopril 2.5 mg tablet 2.5 mg PO DAILY Qty: 90 RF: 4 metoprolol succinate 25 mg tablet extended release 24 hr 25 mg PO DAILY Qty: 90 RF: 4 triamterene-hydrochlorothiazid 37.5-25 mg capsule 1 cap PO DAILY Qty: 90 RF: 4 gabapentin 300 mg capsule 300 mg PO 1 tab am, 2tabs pm Qty: 270 RF: 4 lorazepam 1 mg tablet 1 mg PO HS MDD 2 mg Qty: 30 RF: 5 magnesium oxide 400 mg (241.3 mg magnesium) Tablet 400 mg PO DAILY Qty: 14 RF: 0 (DME) Space Chamber Plus 1 EACH spacer 1 ea Miscellaneous PRN Qty: 1 RF: 0 aspirin 81 MG tablet,delayed release (DR/EC) 81 mg PO DAILY RF: 0 Discharge Instructions Instructions: Hip Pain (ED) Additional Instructions: X-ray of your hip, pelvis, knee reveals degenerative changes but no acute fracture or dislocation. Hpuy-vcq-icqoglo medications such as Tylenol as directed for discomfort. Lidoderm patches as directed. Rest, elevate, cool and/or warm compresses every 2 hours for 20 minutes. You may use a walker to help with ambulation as tolerated. Please watch for new or worsening symptoms and return to the ER for any concerns. I am giving you the name and number of our local orthopedic team, please contact your office either later today or first thing on Sunday during business hours to discuss your ongoing symptoms and need for outpatient reevaluation Referrals: Bryan Lynn MD [ [facility] STAFF PHYSICIAN] - Medical Decision Making 72-year-old female presents with 1 month history of right hip pain, occasionally in the right knee. She took zoic-jcj-pjfuetb medication one time for her symptoms. Clinically she appears well, nontoxic, no acute distress. She is requesting pain medication. Will give a single Percocet. Given her presentation, extremely low suspicion for DVT, I see no clear indication to obtain ultrasound. Instead will obtain x-ray of right hip and pelvis as well as the right knee. Patient is agreeable to this plan. Upon reevaluation patient reports some relief but is requesting something else for discomfort, states I do not do very well with pain. Will provide a Lidoderm patch. X-rays reveal degenerative changes but no acute fracture or dislocation. Patient is agreeable to attempting to trial ambulate but would like additional pain medication. 400 p.o. ibuprofen given. Patient was able to ambulate slowly but steadily, without any significant antalgic gait. Able to fully bear weight. She does request to use a walker, she is able to use a walker without difficulty as well. She states that she has access to a walker at home and will use that if she needs to. She questions if a steroid injection will be helpful, I have given her referral to her orthopedic team. I will also provide her a prescription for Lidoderm patches. Clinically she appears well, nontoxic, no acute distress, neuro, vascular, tendon intact. Patient able to fully bear weight on her hip. I do not believe that CT imaging is required as occult fracture is extremely low my differential. Symptoms have been present for 4 weeks. Again there is no swelling, warmth, erythema of her entire extremity. Normal pedal pulse and capillary. Standard discharge and return precautions given. Patient does not have any concerns or questions and is comfortable discharge This documentation was generated using [employer] system, please disregard any oddities of phrase or misspellings. Medical Records Medical records reviewed: Yes I reviewed the patient's medical records. Imaging Data Radiologic Study: Attestation: I personally reviewed and interpreted this imaging study as follows: Imaging: X-Ray Radiologist's impression: Exam(s) XR HIP RT COMPLETE AP PELVIS EXAM: XR HIP RT COMPLETE AP PELVIS CLINICAL HISTORY: pain TECHNIQUE: COMPARISON: No exams were available for comparison FINDINGS: Three views were obtained. There may be mild narrowing of the cartilaginous joint spaces of both hips. Slight acetabular and femoral head marginal osteophyte formation noted bilaterally. Enthesophyte formation noted on left greater trochanter. No other significant bony or soft tissue abnormality seen. IMPRESSION: Mild DJD both hips. Radiologic Study #2: Attestation: I personally reviewed and interpreted this imaging study as follows: Imaging: X-Ray Radiologist's impression: Exam(s) XR KNEE RT 3V AP,LAT,DIMITRI EXAM: XR KNEE RT 3V AP,LAT,DIMITRI CLINICAL HISTORY: pain TECHNIQUE: COMPARISON: No exams were available for comparison FINDINGS: Three views were obtained. There is an enthesophyte of the superior pole of the patella. Cartilaginous joint spaces appear fairly well maintained. No other bony or soft tissue abnormality seen. HPI General Mode of arrival: wheelchair . Date/Time Provider Initiated Documentation: 03/11/21 11:06 . Limitations to Documentation: no limitations . Information obtained by: patient . HPI Narrative: This is a 70-year-old female, past medical history of CAD, anxiety, lupus, hypothyroidism, hypertension, COPD, presenting to the ER for evaluation of right hip pain. Patient report atraumatic right hip pain for the past month. She noticed her pain after riding a roller coaster. Patient states that her pain is worse with movement or bearing weight, especially trying to lift her leg to get into a vehicle. She took zvia-oki-mpzasve medication one time during this entire month as she states that she has not a pill taker. She denies fever, chest pain, shortness of breath, swelling in her lower extremities, calf pain or swelling, numbness, tingling, weakness. Patient states that the pain is primarily in her hip but occasionally when she is walking antalgic Steve she does feel as though it is in her knee as well, states it is primarily in the anterior aspect of her knee, denies posterior knee discomfort. Denies history of DVT or PE. Patient is requesting pain medication. She states that she is able to bear weight, she has access to a walker but has not been using it. Related Data Home Medications Medication Instructions Recorded Confirmed Space Chamber Plus #1 spacer 01/11/18 03/11/21 aspirin 81 mg PO DAILY tabec 03/01/18 03/11/21 magnesium oxide 400 mg PO DAILY #14 tab 10/09/18 03/11/21 nitroglycerin 0.4 mg sublingual 0.4 mg SUBLINGUAL Q5 MIN PRN X3 01/15/20 03/11/21 tablet PRN #30 tab epinephrine 0.3 mg/0.3 mL 0.3 mg IM ONCE #1 ea 01/26/20 03/11/21 injection, auto-injector tiotropium 2.5 mcg-olodaterol 2.5 2 puff IH DAILY #4 gm 02/17/20 03/11/21 mcg/actuation mist for inhalation ipratropium 0.5 mg-albuterol 3 mg 3 ml IH Q6H #90 ml 06/25/20 03/11/21 (2.5 mg base)/3 mL nebulization soln ipratropium 20 mcg-albuterol 100 1 puff INHALATION Q4H PRN #4 g 08/09/20 03/11/21 mcg/actuation mist for inhalation atorvastatin 80 mg tablet 80 mg PO QPM #90 tab 08/24/20 03/11/21 citalopram 20 mg tablet 40 mg PO DAILY #180 tab-cap 08/24/20 03/11/21 hydroxychloroquine 200 mg tablet 200 mg PO DAILY #90 tab-cap 08/24/20 03/11/21 levothyroxine 50 mcg tablet 50 mcg PO DAILY #90 tab-cap 08/24/20 03/11/21 lisinopril 2.5 mg tablet 2.5 mg PO DAILY #90 tab-cap 08/24/20 03/11/21 metoprolol succinate 25 mg 25 mg PO DAILY #90 tab 08/24/20 03/11/21 tablet,extended release 24 hr triamterene 37.5 1 cap PO DAILY #90 tab-cap 08/24/20 03/11/21 mg-hydrochlorothiazide 25 mg capsule gabapentin 300 mg capsule 300 mg PO 1 tab am, 2tabs pm #270 11/11/20 03/11/21 tab lorazepam 1 mg tablet 1 mg PO HS #30 tab MDD 2 mg 12/21/20 03/11/21 lidocaine [Lidoderm] 1 patch TOPICAL DAILY #1 ea 03/11/21 Previous Rx's Medication Instructions Recorded Space Chamber Plus #1 spacer 01/11/18 aspirin 81 mg PO DAILY tabec 03/01/18 magnesium oxide 400 mg PO DAILY #14 tab 10/09/18 nitroglycerin 0.4 mg sublingual 0.4 mg SUBLINGUAL Q5 MIN PRN X3 01/15/20 tablet PRN #30 tab epinephrine 0.3 mg/0.3 mL 0.3 mg IM ONCE #1 ea 01/26/20 injection, auto-injector tiotropium 2.5 mcg-olodaterol 2.5 2 puff IH DAILY #4 gm 02/17/20 mcg/actuation mist for inhalation ipratropium 0.5 mg-albuterol 3 mg 3 ml IH Q6H #90 ml 06/25/20 (2.5 mg base)/3 mL nebulization soln ipratropium 20 mcg-albuterol 100 1 puff INHALATION Q4H PRN #4 g 08/09/20 mcg/actuation mist for inhalation atorvastatin 80 mg tablet 80 mg PO QPM #90 tab 08/24/20 citalopram 20 mg tablet 40 mg PO DAILY #180 tab-cap 08/24/20 hydroxychloroquine 200 mg tablet 200 mg PO DAILY #90 tab-cap 08/24/20 levothyroxine 50 mcg tablet 50 mcg PO DAILY #90 tab-cap 08/24/20 lisinopril 2.5 mg tablet 2.5 mg PO DAILY #90 tab-cap 08/24/20 metoprolol succinate 25 mg 25 mg PO DAILY #90 tab 08/24/20 tablet,extended release 24 hr triamterene 37.5 1 cap PO DAILY #90 tab-cap 08/24/20 mg-hydrochlorothiazide 25 mg capsule gabapentin 300 mg capsule 300 mg PO 1 tab am, 2tabs pm #270 11/11/20 tab lorazepam 1 mg tablet 1 mg PO HS #30 tab MDD 2 mg 12/21/20 lidocaine [Lidoderm] 1 patch TOPICAL DAILY #1 ea 03/11/21 Allergies Allergy/AdvReac Type Severity Reaction Status Date / Time bee venom protein (honey bee) Allergy Severe Anaphylaxsi Verified 03/11/21 11:45 s tetanus toxoid, adsorbed Allergy Severe swelling,fe Verified 03/11/21 11:45 geneva benzonatate Allergy Mild rash Verified 03/11/21 11:45 [From Tessalon Perles] sulfamethoxazole Allergy Itching Verified 03/11/21 11:45 amoxicillin trihydrate AdvReac Intermediate Diarrhea - Verified 03/11/21 11:45 [From Augmentin] Severe potassium clavulanate AdvReac Intermediate Diarrhea - Verified 03/11/21 11:45 [From Augmentin] Severe insects Allergy Severe Anaphylaxsi Uncoded 03/11/21 11:45 s General Stated Complaint: Orthopedic HOLLIS: 3 Review of Systems Constitutional Constitutional: Denies fever(s) and Denies weakness Cardiovascular Cardiovascular: Denies chest pain and Denies dyspnea Respiratory Respiratory: Denies dyspnea Gastrointestinal Gastrointestinal: Denies abdominal pain, Denies nausea and Denies vomiting Musculoskeletal Musculoskeletal: Denies back pain, Denies muscle weakness, Denies numbness and Denies tingling Integumentary/Breasts Skin/Breast: Denies rash Neurologic Neurologic: Denies numbness, Denies tingling and Denies weakness [facility] Medical History Anxiety (09/03/14) COPD (chronic obstructive pulmonary disease) COPD exacerbation Essential hypertension (09/03/14) Hymenoptera allergy (12/04/14) Hypothyroidism (09/03/14) Lupus (systemic lupus erythematosus) (09/03/14) NSTEMI (non-ST elevated myocardial infarction) 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 Grandfather No problems noted. Grandmother No problems noted. Grandmother No problems noted. Social History Smoking/Tobacco Use Status: Former Tobacco Use Smoking risk assessment performed?: Yes Alcohol Intake: current Alcohol Intake frequency: a few times a month Drug use: Never Substance use type: does not use Household members: children and other Details: 4 WITH 3 SONS Duration: 15-30 minutes/day Frequency: 1-2 times per week Seatbelt use: always Do you feel safe at home: Yes Do you feel safe in your relationship?: Yes Exam Const General: cooperative, healthy appearing, comfortable and no acute distress Orientation: alert, awake and oriented x3 HENMT Head: normal to inspection, normocephalic and atraumatic Eyes General: appearance normal, both eyes and all related structures Conjunctivae: conjunctivae normal Neck Neck: normal visual inspection, full ROM, trachea midline and supple Resp Effort & Inspection: normal respiratory effort and able to speak in complete sentences Auscultation: clear to auscultation bilaterally Cardio Rate: regular rate Rhythm: regular rhythm GI Inspection: normal to inspection Palpation: soft, not firm, no guarding, no pulsatile masses and nontender Back/Spine/Pelvis Back: no CVA tenderness and No back tenderness Skin General skin exam: no rashes or lesions noted Neuro General: patient alert, patient awake, moves all extremities and no focal motor deficits Cognition: normal cognition Speech: speech normal Gait: antalgic (Minimally) Motor: muscle tone normal throughout and strength 5/5 throughout Sensory Exam: no sensory deficits noted Extrem General: normal to inspection, full ROM, capillary refill normal, no pedal edema and no calf tenderness Right lower extremity: full ROM and normal capillary refill Other: Right hip with full range of motion. Patient noted to be ambulating slowly but steadily, bearing weight without difficulty. She has diffuse right lateral hip discomfort but there is no swelling, erythema or ecchymosis. No point tenderness. Thigh is unremarkable. Knee full range of motion, normal visual inspection. There is no swelling, erythema, ecchymosis. I cannot appreciate any discomfort. There is no laxity. Negative Homans' sign. Calf unremarkable without swelling or tenderness. Normal pedal pulse and capillary refill. Psych Appearance: grossly normal Mental Status: mental status grossly normal Course Vital Signs Vital signs: Vital Signs Temperature 36.9 C 03/11/21 11:41 Pulse 50 L 03/11/21 11:41 Respiratory Rate 18 03/11/21 11:41 Blood Pressure 154/83 H 03/11/21 11:41 Pulse Oximetry 97 03/11/21 11:41 Temperature 36.9 C 03/11/21 11:41 Temperature Source Tympanic 03/11/21 11:41 Pulse 50 L 03/11/21 11:41 Respiratory Rate 18 03/11/21 11:41 Respiratory Effort 03/11/21 12:09 Blood Pressure 154/83 H 03/11/21 11:41 Pulse Oximetry 97 03/11/21 11:41 Oxygen Delivery Method Room Air 03/11/21 11:41 Oxygen Flow Rate 0 03/11/21 11:41 Pain Level 2 03/11/21 11:41 Comment 03/11/21 11:41
[2021-03-11 13:18] VITALS: BP 139/42; PULSE 55; RESP 18; O2SAT 96
[2021-03-11] MEDS: Lidocaine 5% Patch 1 PATCH TP (14:01)
[2021-03-11] MEDS: Ibuprofen 400 MG TAB PO (14:29)
[2021-03-11 15:02] VITALS: BP 110/61; PULSE 56; RESP 16; TEMP 36.7; O2SAT 95
--- NOTE | 2021-03-11 15:02 | NUR.NOTE ---
ambulated pt through dept while using walker Nursing Note:
== END 2021-03-11 15:17 | disposition home or self-care (01) ==
PROVIDERS: Emergency Provider Physician Assistant; PCP Nurse Practitioner
DX: M25.551 Pain in right hip (principal)
CPT/HCPCS: 73562; 99284; 73502

== ENCOUNTER 2021-06-27 16:52 | Outpatient (REF) | payer MEDICARE, MEDICAID, SELFPAY ==
[2021-06-29 15:07] LABS: COVID-19 RT-PCR UVMMC Result Negative (Negative)
== END 2021-06-27 16:53 | disposition home or self-care (01) ==
LOC: NCHCN 16:52
PROVIDERS: PCP Nurse Practitioner; Visit Provider Nurse Practitioner Family
DX: Z20.822 Contact with and (suspected) exposure to COVID-19 (principal)
CPT/HCPCS: U0003

== ENCOUNTER 2021-07-05 03:06 | Outpatient (CLI) | payer MEDICARE, MEDICAID, SELFPAY ==
[2021-07-05 11:01] LABS: Anion Gap 3.1 mmol/L (3-11); BUN 12 mg/dL (7-18); CO2 36.9 mmol/L (21.0-32.0); Calcium 8.8 mg/dL (8.5-10.1); Calculated LDL 47 mg/dL (<100); Chloride 104 mmol/L (98-107); Cholesterol 121 mg/dL (<200); Glucose 94 mg/dL (74-106); HDL Cholesterol 57 mg/dL (40-60); Potassium 3.5 mmol/L (3.5-5.1); Sodium 144 mmol/L (136-145); TSH 1.65 uIU/mL (0.36-3.74); Triglyceride 88 mg/dL (<150)
== END 2021-07-05 03:07 | disposition home or self-care (01) ==
LOC: LBO 03:06
PROVIDERS: PCP Nurse Practitioner; Visit Provider Nurse Practitioner
DX: I10 Essential (primary) hypertension (principal); I21.4 Non-ST elevation (NSTEMI) myocardial infarction
CPT/HCPCS: 36415; 80048; 80061; 84443

== ENCOUNTER 2021-07-06 19:32 | Outpatient (REF) | payer MEDICARE, MEDICAID, SELFPAY ==
[2021-07-08 11:53] LABS: COVID-19 RT-PCR UVMMC Result Negative (Negative)
== END 2021-07-06 19:33 | disposition home or self-care (01) ==
LOC: LBN 19:32
PROVIDERS: PCP Nurse Practitioner; Visit Provider Family Medicine
DX: Z20.822 Contact with and (suspected) exposure to COVID-19 (principal); J06.9 Acute upper respiratory infection, unspecified
CPT/HCPCS: U0003; U0005

== ENCOUNTER 2021-08-18 01:52 | Outpatient (CLI) | payer MEDICARE, MEDICAID, SELFPAY ==
--- NOTE | 2021-08-18 06:30 | DI.DEXA_ITS ---
Exam(s) XR DEXA BONE DENSITY W/WO INOCENCIA EXAM: XR DEXA BONE DENSITY W/WO INOCENCIA CLINICAL HISTORY: screening for osteoporosis in postmenopausal woman,z78.0 TECHNIQUE: Neurosearch C densitometer COMPARISON: DEXA 2003 and 2006 FINDINGS: Lateral view of the thoracic and lumbar spine shows no definite evidence of compression fractures. T horacic kyphosis is noted. Bone mineral density measurements of the lumbar spine correspond to a total T-score of -1.7, in the osteopenic range. 3.9 percent decrease from 2006. 1.8 percent decrease from 2003. Bone mineral density measurements of the left hip correspond to a total T-score of -0.7 . The femora l neck T-score is -1.4, in the osteopenic range. Not significantly changed from priors. . The left forearm bone mineral density measurements correspond to a T-score of the distal 3rd of -2.8 , in the osteoporotic range. The forearm was not analyzed on the previous exams. WHO FRAX: 10 year fracture risk of major osteoporotic fracture is calculated at 10 percent. Ten year risk of hip fracture is 1.7 percent. IMPRESSION: Osteopenia of the lumbar spine and left hip. Osteoporosis of the left forearm.
--- NOTE | 2021-08-18 08:45 | DI.MAMMO_ITS ---
Exam(s) MAMMO SCREENING EXAM: MAMMO SCREENING CLINICAL HISTORY: screening,z12.39 TECHNIQUE: Mammograms were interpreted according to the usual protocol including computer analysis w [employer] CAD system, tomosynthesis and C-view imaging. COMPARISON: 2011 through 2020 FINDINGS: The breasts are composed of scattered fibroglandular densities, Breast Density category B. No suspicious masses or suspicious microcalcifications are seen. No skin thickening or abnormal axillary lymph nodes are seen. There has been no significant change from prior exams. IMPRESSION: BI-RADS Category 1, Negative mammogram Yearly screening mammography is recommended. Breast Density - Category B, scattered fibroglandular densities. A negative radiographic report should not delay biopsy if a dominant or clinically suspicious mass is present. Up to ten percent of cancers are not identified on mammography. A negative report may reinforce clinical impression. Adenosis and dense breasts may obscure an underlying neoplasm. False positive reports average 6 to 10%. Patient will receive a letter notifying them of these results.
== END 2021-08-18 02:12 ==
PROVIDERS: PCP Nurse Practitioner; Visit Provider Nurse Practitioner
DX: Z12.31 Encounter for screening mammogram for malignant neoplasm of breast (principal); Z78.0 Asymptomatic menopausal state
CPT/HCPCS: 77063; 77067; 77080

== ENCOUNTER 2021-12-05 02:46 | Outpatient (CLI) | payer MEDICARE, MEDICAID, SELFPAY ==
[2021-12-05 12:48] LABS: Anion Gap 7.8 mmol/L (3-11); BUN 10 mg/dL (7-18); CO2 30.2 mmol/L (21.0-32.0); CREATININE 0.9 mg/dL (0.55-1.02); Calcium 8.4 mg/dL (8.5-10.1); Chloride 105 mmol/L (98-107); Glucose 92 mg/dL (74-106); Potassium 4.1 mmol/L (3.5-5.1); Sodium 143 mmol/L (136-145)
== END 2021-12-05 02:47 | disposition home or self-care (01) ==
LOC: LOS 02:46
PROVIDERS: PCP Nurse Practitioner; Visit Provider Nurse Practitioner
DX: I10 Essential (primary) hypertension (principal)
CPT/HCPCS: 36415; 80048; 84443

== ENCOUNTER 2022-02-03 17:16 | Emergency (ER) | payer MEDICARE, MEDICAID, SELFPAY ==
[2022-02-03] VITALS (16 sets, daily range): BP systolic 140–184; BP diastolic 47–133; PULSE 71–75; RESP 16–27; TEMP 37.4–38; O2SAT 91–94
--- NOTE | 2022-02-03 19:15 | DI.CT_ITS ---
Exam(s) CT HEAD WO EXAM: CT HEAD WO CLINICAL HISTORY: dizzy, eval for stroke/subdural. TECHNIQUE: Imaging Protocol: Axial computed tomography images with coronal and sagittal reformatted images were created and reviewed COMPARISON: No exams were available for comparison FINDINGS: There are no skull fractures nor fluid in the visualized paranasal sinuses. There is no evidence of intracranial hemorrhage, mass effect, or shift of midline structures. There are no extra-axial fluid collections. The ventricles are not enlarged or shifted and there is no blo od within the ventricular system nor within the basal cisterns. IMPRESSION: No acute intracranial findings on this noninfused CT scan of the brain. RADIATION DOSE DELIVERED: 690.28mGy.cm Total DLP DATA REPOSITORY: All CT scans at this facility are submitted to the National Radiology Data Registry (NRDR) Dose Index Registry (DIR) with the [employer] (ACR). RADIATION OPTIMIZATION: All CT scans at this facility use at least one of these dose optimization te chniques: automated exposure control; mA and/or kV adjustment per patient size (includes targeted exa ms where dose is matched to clinical indication); or iterative reconstruction.
--- NOTE | 2022-02-03 19:15 | DI.RAD_ITS ---
Exam(s) XR PORTABLE CHEST AP EXAM: XR PORTABLE CHEST AP CLINICAL HISTORY: fever, cough, eval for pneumonia. TECHNIQUE: 2D digital imaging was performed. COMPARISON: CR,XR XR PORTABLE CHEST AP from 05/07/2020 FINDINGS: Single AP portable view. Mild cardiomegaly. Mediastinum not widened. Hyperinflation. No infiltrates nor pleural effusions. No pulmonary edema. No pneumothorax. IMPRESSION: Hyperinflation but no acute pulmonary findings. DATA REPOSITORY: RADIATION DOSE DELIVERED: All CT scans at this facility use at least one of these dose optimization techniques: automated exposure control; mA and/or kV adjustment per patient size (includes targeted e xams where dose is matched to clinical indication); or iterative reconstruction.
[2022-02-03 19:19] LABS: Lactate 0.8 mmol/L (0.6-1.4)
[2022-02-03 19:21] LABS: Abs Immature Grans 0.03 10^3/uL (0.0-0.06); Absolute Basophil Count 0.04 10^3/uL (0.0-0.2); Absolute Eosinophil Count 0.13 10^3/uL (0.0-0.7); Absolute Lymphocyte Count 0.48 10^3/uL (1.2-3.4); Absolute Monocyte Count 1.22 10^3/uL (0.1-0.8); Absolute Neutrophil Count 4.93 10^3/uL (1.2-6.7); Basophils % 0.6; Eosinophils % 1.9; HCT 39.7 % (36.0-46.0); HGB 13.1 g/dL (11.2-15.7); Immature Grans % 0.4; MCH 29.5 pg (27.0-33.0); MCV 89 fL (80-95); MPV 11.5 fL (8.0-11.0); Monocytes % 17.9; Neutrophils % 72.2; Platelet Count 168 10^3/uL (130-400); RBC 4.44 10^6/uL (3.93-5.22); RDW 12.8 % (11.7-14.6); WBC 6.83 10^3/uL (4.4-10.8)
[2022-02-03] MEDS: Normal Saline 500 ML IV (19:34)
[2022-02-03 19:49] LABS: ALT 27 U/L (14-59); AST 41 U/L (15-37); Albumin 3.2 g/dL (3.4-5.0); Alkaline Phosphatase 68 U/L (46-116); Anion Gap 3.1 mmol/L (3-11); BUN 10 mg/dL (7-18); Bilirubin, Total 0.7 mg/dL (0.2-1.0); CO2 32.9 mmol/L (21.0-32.0); Calcium 8.6 mg/dL (8.5-10.1); Chloride 98 mmol/L (98-107); Estimated GFR 54.35 (mL/min/1.73m2); Glucose 89 mg/dL (74-106); Potassium 4.1 mmol/L (3.5-5.1); Sodium 134 mmol/L (136-145); TSH (W/Ref FT4) 0.72 uIU/mL (0.36-3.74); Total Protein 6.4 g/dL (6.4-8.2)
[2022-02-03 20:19] LABS: Influenza A PCR Negative (Negative); Influenza B PCR Negative (Negative); RSV PCR Negative (Negative)
[2022-02-03 20:21] LABS: COVID-19 PCR Positive (Negative)
[2022-02-03 20:32] LABS: Bilirubin Negative (Negative); Blood Trace-intact (Negative); Clarity Clear (Clear); Glucose Negative (Negative); Ketones Negative (Negative); Leukocyte Esterase Negative (Negative); Nitrite Negative (Negative); Urobilinogen 0.2 EU/dL (Up TO 0.2)
--- NOTE | 2022-02-03 20:45 | DI.VRAD_ITS ---
PROCEDURE INFORMATION: Exam: CT Head Without Contrast Exam date and time: 02/03/2022 8:16 PM Age: 71 years old Clinical indication: Dizzy, eval stroke/subdural TECHNIQUE: Imaging protocol: Computed tomography of the head without contrast. Radiation optimization: All CT scans at this facility use at least one of these dose optimization techniques: automated exposure control; mA and/or kV adjustment per patient size (includes targeted exams where dose is matched to clinical indication); or iterative reconstruction. COMPARISON: US carotid 02/26/2019 2:24 PM FINDINGS: Brain: There is no acute intracranial hemorrhage, mass effect or midline shift. There is no large acute territorial cerebral infarct. Cerebral ventricles: No ventriculomegaly. Paranasal sinuses: The paranasal sinuses are clear. No air-fluid levels. Mastoid air cells: The mastoid air cells are unremarkable. Bones/joints: No acute fracture. Soft tissues: No significant subcutaneous soft tissue abnormality. IMPRESSION: No acute intracranial hemorrhage, mass effect or midline shift. Dictated and Authenticated by: Janine Soliz MD. Ordering:MAGGY Olivares MD
[2022-02-03 20:48] LABS: Bacteria Negative HPF (Negative); C & S Indicated? No; Casts Negative LPF (Negative); Crystals Negative HPF (Negative); Epithelial Cells Rare HPF (Negative); Mucus Negative (Negative); Other Cells Negative (Negative); RBC Negative HPF (0-2); WBC 0-2 HPF (0-5)
--- NOTE | 2022-02-03 20:56 | DI.VRAD_ITS ---
PROCEDURE INFORMATION: Exam: XR Chest Exam date and time: 02/03/2022 8:08 PM Age: 71 years old Clinical indication: Other: Fever, cough, eval for pneumonia TECHNIQUE: Imaging protocol: Radiologic exam of the chest. Views: 1 view. COMPARISON: XR PORTABLE CHEST AP 05/07/2020 5:49 PM FINDINGS: Lungs: Hyperinflation consistent with emphysema/COPD. Stable since 05/07/2020. No acute infiltrates or edema. Pleural spaces: No pleural effusion. Heart/Mediastinum: Mild cardiac enlargement. Bones/joints: Degenerative thoracic spine disease. Appearance suggesting an old left humeral neck fracture which has healed. IMPRESSION: 1. Emphysema/COPD. 2. No acute infiltrates. 3. No pleural effusion. 4. Mild cardiac enlargement. Dictated and Authenticated by: Socrates Rudolph MD. Ordering:MAGGY Olivares MD
--- NOTE | 2022-02-03 21:01 | W.ED.GENAD ---
Discharge Plan Disposition Patient Disposition: HOME Condition: Stable Discharge Details Clinical Impression: COVID-19, COPD (chronic obstructive pulmonary disease) Primary Care Provider: Gabby Castaneda ED Provider: Marshall Fernandez Home Meds and New Rx's Prescriptions: No Action ipratropium-albuterol 0.5 mg-3 mg(2.5 mg base)/3 mL solution for nebulization 3 ml IH Q6H Qty: 90 4RF amlodipine 5 mg tablet 5 mg PO DAILY Qty: 30 0RF epinephrine [EpiPen 2-Mikel] 0.3 mg/0.3 mL auto-injector 0.3 mg IM ONCE Qty: 1 3RF gabapentin 300 mg capsule 300 mg PO 1 tab am, 2tabs pm Qty: 270 4RF levothyroxine 50 mcg tablet 50 mcg PO DAILY Qty: 90 4RF Stiolto Respimat 2.5-2.5 mcg/actuation mist 2 puff IH DAILY Qty: 4 4RF Rx Instructions: Prescribed by [facility] [place] pulmonology nitroglycerin [Nitrostat] 0.4 mg tablet, sublingual 0.4 mg Sublingual Q5 MIN PRN X3 PRN (Reason: Chest Pain) Qty: 30 0RF furosemide 20 mg tablet 20 mg PO DAILY Qty: 30 11RF Rx Instructions: [facility] [place] Combivent Respimat 20-100 mcg/actuation mist 1 puff Inhalation Q4H PRN (Reason: Exacerbation COPD) Qty: 4 4RF Rx Instructions: dispense 3 inhalers lisinopril 2.5 mg tablet 2.5 mg PO DAILY Qty: 90 0RF citalopram 20 mg tablet 40 mg PO DAILY Qty: 180 4RF atorvastatin 80 mg tablet 80 mg PO QPM Qty: 90 4RF lorazepam 1 mg tablet 1 mg PO HS PRN (Reason: anxiety) Qty: 30 0RF (DME) Space Chamber Plus 1 EACH spacer 1 ea Miscellaneous PRN Qty: 1 0RF aspirin 81 MG tablet,delayed release (DR/EC) 81 mg PO DAILY 0RF Discharge Instructions Instructions: COVID-19 (Coronavirus Disease 2019) (ED) Additional Instructions: At this time your oxygen is stable, your lungs show no evidence of pneumonia. You do have COVID-19. This is likely causing your fever, fatigue and shortness of breath. Please continue to use your inhaler at home as directed. Please stay well-hydrated, get plenty of rest. Monitor your symptoms closely, and if at rest your oxygen goes below 90% for greater than a minute, please return immediately for reassessment. If you are noting zero improvement in 48 hours, or if you have any worsening of your symptoms please return immediately. It would be reasonable to discuss oral COVID therapy in addition to the monoclonal antibody for you received here today. If you notice any worsening of your symptoms, or any new symptoms such as vomiting, diarrhea, fever, chills, shortness of breath, chest pain, numbness, weakness, or fainting , please return immediately to the emergency department for reevaluation. Please follow up with your primary care provider as soon as possible for reassessment and reevaluation. As always, it was a pleasure participating in your medical care today. Referrals: Gabby Castaneda NP [Primary Care Provider] - Medical Decision Making This is a 71-year-old female with a past medical history of COPD, hypertension, high cholesterol, coronary artery disease, who presents today for evaluation of cough, congestion, mild fever at home, and feeling slightly weak. Patient states that the symptoms have been present for the last day or so. She denies any chest pain, hemoptysis, numbness, tingling or weakness. She denies hitting her head or falling. She is brought in by her children. She is very dismissive of her symptoms otherwise, and has no other complaints at this time. She has not had her COVID-vaccine. Physical exam demonstrates no calf tenderness, relatively clear lung sounds with slightly diminished component. No crackles or rhonchi. No nuchal rigidity. No neurologic abnormality. Differential includes viral infection, COVID-19, UTI, or dehydration. We will gently rehydrate, check for these concerning etiologies, monitor closely and reassess. 10:04 PM Patient's COVID test has returned positive. Lactate normal, no white count bandemia or left shift. Electrolytes stable. Chest x-ray negative for acute process. CT scan of the head negative for acute process. Urinary assessment is normal. Flu and RSV are negative. On reassessment the patient feels well after the fluids. Oxygenation is 93% on room air at rest. She was given a breathing treatment, Decadron. We discussed oral COVID therapy versus monoclonal antibody infusion. Shared decision-making process the patient has elected for monoclonal antibody therapy at this time. This was then administered. She did well after the observation period. Patient at this time shows no evidence of severe respiratory distress, significant oxygen compromise, or other significant abnormality requiring admission at this time. I had a long discussion with the patient's daughter, as well as with the patient's son and the patient discussing concerning red flags and symptomatology that would indicate return or admission. They will continue to monitor her closely. They do have a pulse oximeter to monitor her oxygen at home. I have extensively reviewed the treatment plan and discharge instructions with the patient and their family. I have addressed all patient concerns at this time. The patient and family was made aware of what symptoms to monitor for that would warrant a return to the emergency department. Discussed the plan with the patient and family, they demonstrate verbal understanding and agreement with our assessment and plan at this time. The documentation in this chart was dictated using [employer] dictation software. Please excuse any dictation errors. FINDINGS: Brain: There is no acute intracranial hemorrhage, mass effect or midline shift. There is no large acute territorial cerebral infarct. Cerebral ventricles: No ventriculomegaly. Paranasal sinuses: The paranasal sinuses are clear. No air-fluid levels. Mastoid air cells: The mastoid air cells are unremarkable. Bones/joints: No acute fracture. Soft tissues: No significant subcutaneous soft tissue abnormality. IMPRESSION: No acute intracranial hemorrhage, mass effect or midline shift. Thank you for allowing us to participate in the care of your patient. Dictated and Authenticated by: Janine Reid MD FINDINGS: Lungs: Hyperinflation consistent with emphysema/COPD. Stable since 05/07/2020. No acute infiltrates or edema. Pleural spaces: No pleural effusion. Heart/Mediastinum: Mild cardiac enlargement. Bones/joints: Degenerative thoracic spine disease. Appearance suggesting an old left humeral neck fracture which has healed. IMPRESSION: 1. Emphysema/COPD. 2. No acute infiltrates. 3. No pleural effusion. 4. Mild cardiac enlargement. Thank you for allowing us to participate in the care of your patient. Dictated and Authenticated by: Socrates Rudolph MD 02/03/2022 8:55 PM Eastern Time ([place] & [place]) HPI General Date/Time Provider Initiated Documentation: 02/03/22 18:07. HPI Narrative: This is a 71-year-old female with a past medical history of COPD, hypertension, high cholesterol, coronary artery disease, who presents today for evaluation of cough, congestion, mild fever at home, and feeling slightly weak. Patient states that the symptoms have been present for the last day or so. She denies any chest pain, hemoptysis, numbness, tingling or weakness. She denies hitting her head or falling. She is brought in by her children. She is very dismissive of her symptoms otherwise, and has no other complaints at this time. She has not had her COVID-vaccine. Related Data Home Medications Medication Instructions Recorded Confirmed inhalational spacing device (Space ##1 01/11/18 01/31/22 Chamber Plus) aspirin 81 mg tablet,delayed 81 mg PO DAILY 03/01/18 02/03/22 release ipratropium 20 mcg-albuterol 100 1 puff inhalation Q4H PRN 05/02/21 02/03/22 mcg/actuation mist for inhalation Exacerbation COPD #4 grams (Combivent Respimat) ipratropium 0.5 mg-albuterol 3 mg 3 ml inhalation Q6H #90 mL 07/14/21 02/03/22 (2.5 mg base)/3 mL nebulization soln furosemide 20 mg tablet 20 mg PO DAILY #30 tabs 08/30/21 02/03/22 nitroglycerin 0.4 mg sublingual 0.4 mg sublingual Q5 MIN PRN X3 08/30/21 02/03/22 tablet (Nitrostat) PRN Chest Pain #30 tabs lisinopril 2.5 mg tablet 2.5 mg PO DAILY #90 tabs 09/01/21 02/03/22 atorvastatin 80 mg tablet 80 mg PO QPM #90 tabs 10/24/21 02/03/22 citalopram 20 mg tablet 40 mg PO DAILY #180 tab-caps 10/24/21 02/03/22 amlodipine 5 mg tablet 5 mg PO DAILY #30 tabs 10/25/21 02/03/22 epinephrine 0.3 mg/0.3 mL 0.3 mg (0.3 mL) IM ONCE #1 ea 10/25/21 02/03/22 injection, auto-injector (EpiPen 2-Mikel) gabapentin 300 mg capsule 300 mg PO 1 tab am, 2tabs pm #270 10/25/21 02/03/22 tabs levothyroxine 50 mcg tablet 50 mcg PO DAILY #90 tab-caps 10/25/21 02/03/22 tiotropium 2.5 mcg-olodaterol 2.5 2 puff inhalation DAILY #4 grams 10/25/21 02/03/22 mcg/actuation mist for inhalation (Stiolto Respimat) lorazepam 1 mg tablet 1 mg PO HS PRN anxiety #30 tabs 01/31/22 02/03/22 Previous Rx's Medication Instructions Recorded inhalational spacing device (Space ##1 01/11/18 Chamber Plus) aspirin 81 mg tablet,delayed 81 mg PO DAILY 03/01/18 release ipratropium 20 mcg-albuterol 100 1 puff inhalation Q4H PRN 05/02/21 mcg/actuation mist for inhalation Exacerbation COPD #4 grams (Combivent Respimat) ipratropium 0.5 mg-albuterol 3 mg 3 ml inhalation Q6H #90 mL 07/14/21 (2.5 mg base)/3 mL nebulization soln furosemide 20 mg tablet 20 mg PO DAILY #30 tabs 08/30/21 nitroglycerin 0.4 mg sublingual 0.4 mg sublingual Q5 MIN PRN X3 08/30/21 tablet (Nitrostat) PRN Chest Pain #30 tabs lisinopril 2.5 mg tablet 2.5 mg PO DAILY #90 tabs 09/01/21 atorvastatin 80 mg tablet 80 mg PO QPM #90 tabs 10/24/21 citalopram 20 mg tablet 40 mg PO DAILY #180 tab-caps 10/24/21 amlodipine 5 mg tablet 5 mg PO DAILY #30 tabs 10/25/21 epinephrine 0.3 mg/0.3 mL 0.3 mg (0.3 mL) IM ONCE #1 ea 10/25/21 injection, auto-injector (EpiPen 2-Mikel) gabapentin 300 mg capsule 300 mg PO 1 tab am, 2tabs pm #270 10/25/21 tabs levothyroxine 50 mcg tablet 50 mcg PO DAILY #90 tab-caps 10/25/21 tiotropium 2.5 mcg-olodaterol 2.5 2 puff inhalation DAILY #4 grams 10/25/21 mcg/actuation mist for inhalation (Stiolto Respimat) lorazepam 1 mg tablet 1 mg PO HS PRN anxiety #30 tabs 01/31/22 Allergies Allergy/AdvReac Type Severity Reaction Status Date / Time bee venom protein (honey bee) Allergy Severe Anaphylaxsi Verified 02/03/22 17:47 s tetanus toxoid, adsorbed Allergy Severe swelling,fe Verified 02/03/22 17:47 geneva benzonatate Allergy Mild rash Verified 02/03/22 17:47 [From Tessalon Perles] sulfamethoxazole Allergy Itching Verified 02/03/22 17:47 amoxicillin trihydrate AdvReac Intermediate Diarrhea - Verified 02/03/22 17:47 [From Augmentin] Severe potassium clavulanate AdvReac Intermediate Diarrhea - Verified 02/03/22 17:47 [From Augmentin] Severe insects Allergy Severe Anaphylaxsi Uncoded 02/03/22 17:47 s General Stated Complaint: Dizzy/Sync HOLLIS: 2 Review of Systems All systems reviewed & are unremarkable except as noted in HPI and below PFSH All Active Problems (Updated 02/03/22 @ 22:22 by Marshall Fernandez DO) COVID-19 (Acute) Shoulder pain, right (Acute) Osteoporosis (Chronic) ; left arm, started fosamax Osteoarthritis (Chronic) Right carotid bruit (Acute) Anxiety (Chronic 09/03/14) 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 seen at [facility] [place] - has been stable on meds Lupus (systemic lupus erythematosus) (Chronic 09/03/14) rheum [facility] [place] previously- stable on meds Hypothyroidism (Chronic 09/03/14) Essential hypertension (Chronic 09/03/14) COPD (chronic obstructive pulmonary disease) (Chronic) Medical History CAD (coronary artery disease), barrow coronary artery sees cardiology at [facility] [place] yearly Hymenoptera allergy (12/04/14) NSTEMI (non-ST elevated myocardial infarction) Pharyngoesophageal dysphagia Normal larygoscopy 07/2020 Surgical History History of ankle surgery Family History Mother Asthma Father Diabetes Grandfather No problems noted. Grandfather No problems noted. Grandmother No problems noted. Grandmother No problems noted. Social History Smoking/Tobacco Use Status: Former Tobacco Use Smoking risk assessment performed?: Yes Alcohol Intake: current Alcohol Intake frequency: a few times a month Drug use: Never Substance use type: does not use Household members: children and other Details: 4 WITH 3 SONS Duration: 15-30 minutes/day Frequency: 1-2 times per week Seatbelt use: always Do you feel safe at home: Yes Do you feel safe in your relationship?: Yes Exam Narrative Exam Narrative: 1.Const: Well-nourished, Well-developed, appearing stated age 2.Eyes: PERRL, no conjunctival injection, and symmetrical lids. 3.ENT: Atraumatic external nose and ears. Moist MM. Neck: Symmetric, trachea midline, No thyromegaly. 4.CVS: +S1/S2, No murmurs or gallops. Peripheral pulses 2+ and equal in all extremities. Brisk capillary refill in all extremities. 5.RESP: Unlabored respiratory effort. Clear to auscultation bilaterally. No wheezes rales or rhonchi 6.GI: Soft, Nontender/Nondistended, No hepatosplenomegaly. No guarding or rebound. 7.MSK: Normocephalic/Atraumatic, Extremities w/o deformity or ttp No cyanosis or clubbing, Normal movement of all extremities. No calf tenderness. 8.Skin: Warm, Dry. No rashes or lesions. 9.Neuro: fulfillment coordinator II-XII grossly intact. Sensation grossly intact, no focal neurologic deficits. 10.Psych: (AAO) x3. Appropriate mood and affect Course Vital Signs Vital signs: Vital Signs Temperature 37.7 C H 02/03/22 17:44 Pulse 73 02/03/22 17:44 Respiratory Rate 24 02/03/22 17:44 Blood Pressure 184/51 H 02/03/22 17:44 Pulse Oximetry 91 L 02/03/22 17:44 Temperature 38.0 C H 02/03/22 20:04 Temperature Source Oral 02/03/22 20:04 Pulse 72 02/03/22 20:04 Pulse 73 02/03/22 19:31 Respiratory Rate 17 02/03/22 20:04 Respiratory Effort Labored 02/03/22 17:53 Respiratory Depth Normal 02/03/22 17:53 Respiratory Pattern Normal 02/03/22 17:53 Blood Pressure 156/52 H 02/03/22 20:04 Blood Pressure Mean 74 02/03/22 19:31 Blood Pressure Position Sitting 02/03/22 17:44 Pulse Oximetry 93 02/03/22 20:04 Oxygen Delivery Method Room Air 02/03/22 20:04 Oxygen Flow Rate 0 02/03/22 20:04 Pain Level 5 02/03/22 20:04 Lab/Test Results Lab/Test Results: Laboratory Tests Range/Units 02/03/22 02/03/22 02/03/22 19:06 19:11 19:11 WBC (4.4-10.8) 10^3/uL RBC (3.93-5.22) 10^6/uL Hgb (11.2-15.7) g/dL Hct (36.0-46.0) % MCV (80-95) fL MCH (27.0-33.0) pg MCHC (32.0-36.0) % RDW (11.7-14.6) % Plt Count (130-400) 10^3/uL MPV (8.0-11.0) fL Immature Gran % Neutrophils % Lymphocytes % Monocytes % Eosinophils % Basophils % Nucleated RBC % (0.0-0.3) % Absolute Neutrophils (1.2-6.7) 10^3/uL Absolute Lymphocytes (1.2-3.4) 10^3/uL Absolute Monocytes (0.1-0.8) 10^3/uL Absolute Eosinophils (0.0-0.7) 10^3/uL Absolute Basophils (0.0-0.2) 10^3/uL VBG Lactate (0.6-1.4) mmol/L 0.8 Sodium (136-145) mmol/L 134 L Potassium (3.5-5.1) mmol/L 4.1 Chloride (98-107) mmol/L 98 Carbon Dioxide (21.0-32.0) mmol/L 32.9 H Anion Gap (3-11) mmol/L 3.1 BUN (7-18) mg/dL 10 Creatinine (0.55-1.02) mg/dL 1.0 Estimated GFR/1.73 m2 (mL/min/1.73m2) 54.35 Glucose (74-106) mg/dL 89 Calcium (8.5-10.1) mg/dL 8.6 Total Bilirubin (0.2-1.0) mg/dL 0.7 AST (15-37) U/L 41 H ALT (14-59) U/L 27 Alkaline Phosphatase (46-116) U/L 68 Total Protein (6.4-8.2) g/dL 6.4 Albumin (3.4-5.0) g/dL 3.2 L TSH (0.36-3.74) uIU/mL 0.72 Urine Color (Yellow) Urine Clarity (Clear) Urine pH (5-8) Ur Specific Leon (1.005-1.025) Urine Protein (Negative) mg/dL Urine Ketones (Negative) mg/dL Urine Blood (Negative) Urine Nitrite (Negative) Urine Bilirubin (Negative) Urine Urobilinogen (Up TO 0.2) EU/dL Ur Leukocyte Esterase (Negative) Urine RBC (0-2) HPF Urine WBC (0-5) HPF Ur Epithelial Cells (Negative) HPF Urine Crystals (Negative) HPF Urine Bacteria (Negative) HPF Urine Casts (Negative) LPF Urine Mucus (Negative) Urine Other (Negative) Ur Culture Indicated? Urine Glucose (Negative) mg/dL COVID-19 Source Not Applicable SARS-CoV-2 (PCR) (Negative) Positive A Influenza Type A (PCR) (Negative) Negative Influenza Type B (PCR) (Negative) Negative RSV (PCR) (Negative) Negative Range/Units 02/03/22 02/03/22 19:11 20:10 WBC (4.4-10.8) 10^3/uL 6.83 RBC (3.93-5.22) 10^6/uL 4.44 Hgb (11.2-15.7) g/dL 13.1 Hct (36.0-46.0) % 39.7 MCV (80-95) fL 89 MCH (27.0-33.0) pg 29.5 MCHC (32.0-36.0) % 33.0 RDW (11.7-14.6) % 12.8 Plt Count (130-400) 10^3/uL 168 MPV (8.0-11.0) fL 11.5 H Immature Gran % 0.4 Neutrophils % 72.2 Lymphocytes % 7.0 Monocytes % 17.9 Eosinophils % 1.9 Basophils % 0.6 Nucleated RBC % (0.0-0.3) % 0.0 Absolute Neutrophils (1.2-6.7) 10^3/uL 4.93 Absolute Lymphocytes (1.2-3.4) 10^3/uL 0.48 L Absolute Monocytes (0.1-0.8) 10^3/uL 1.22 H Absolute Eosinophils (0.0-0.7) 10^3/uL 0.13 Absolute Basophils (0.0-0.2) 10^3/uL 0.04 VBG Lactate (0.6-1.4) mmol/L Sodium (136-145) mmol/L Potassium (3.5-5.1) mmol/L Chloride (98-107) mmol/L Carbon Dioxide (21.0-32.0) mmol/L Anion Gap (3-11) mmol/L BUN (7-18) mg/dL Creatinine (0.55-1.02) mg/dL Estimated GFR/1.73 m2 (mL/min/1.73m2) Glucose (74-106) mg/dL Calcium (8.5-10.1) mg/dL Total Bilirubin (0.2-1.0) mg/dL AST (15-37) U/L ALT (14-59) U/L Alkaline Phosphatase (46-116) U/L Total Protein (6.4-8.2) g/dL Albumin (3.4-5.0) g/dL TSH (0.36-3.74) uIU/mL Urine Color (Yellow) Yellow Urine Clarity (Clear) Clear Urine pH (5-8) 7.0 Ur Specific Leon (1.005-1.025) 1.020 Urine Protein (Negative) mg/dL Negative Urine Ketones (Negative) mg/dL Negative Urine Blood (Negative) Trace-intact H Urine Nitrite (Negative) Negative Urine Bilirubin (Negative) Negative Urine Urobilinogen (Up TO 0.2) EU/dL 0.2 Ur Leukocyte Esterase (Negative) Negative Urine RBC (0-2) HPF Negative Urine WBC (0-5) HPF 0-2 Ur Epithelial Cells (Negative) HPF Rare Urine Crystals (Negative) HPF Negative Urine Bacteria (Negative) HPF Negative Urine Casts (Negative) LPF Negative Urine Mucus (Negative) Negative Urine Other (Negative) Negative Ur Culture Indicated? No Urine Glucose (Negative) mg/dL Negative COVID-19 Source SARS-CoV-2 (PCR) (Negative) Influenza Type A (PCR) (Negative) Influenza Type B (PCR) (Negative) RSV (PCR) (Negative)
[2022-02-03] MEDS: Albuterol/Ipratropium 3 ML UPD VIAL UPD (21:42)
[2022-02-03] MEDS: Acetaminophen 500 MG TAB 1000 MG PO (21:59)
[2022-02-03] MEDS: Dexamethasone 10 MG/ML VIAL IVP (21:59)
== END 2022-02-03 22:34 | disposition home or self-care (01) ==
PROVIDERS: Emergency Provider Student in an Organized Health Care Education/Training Program; PCP Nurse Practitioner
DX: U07.1 COVID-19 (principal); J44.9 Chronic obstructive pulmonary disease, unspecified; I10 Essential (primary) hypertension; I25.10 Atherosclerotic heart disease of native coronary artery without angina pectoris; I25.2 Old myocardial infarction; E78.00 Pure hypercholesterolemia, unspecified; Z79.82 Long term (current) use of aspirin; Z87.891 Personal history of nicotine dependence
CPT/HCPCS: 80053; 87637; 96361; 96374; 96375; 99284; Q0222; 70450; 71045; 81003; 81015; 83605; 84443; 85025; J1100; J7620

== ENCOUNTER 2023-02-07 22:21 | Outpatient (REF) | payer MEDICARE, MEDICAID, SELFPAY ==
[2023-02-07 22:45] LABS: Abs Immature Grans 0.03 10^3/uL (0.0-0.06); Absolute Basophil Count 0.06 10^3/uL (0.0-0.2); Absolute Eosinophil Count 0.17 10^3/uL (0.0-0.7); Absolute Lymphocyte Count 1.66 10^3/uL (1.2-3.4); Absolute Monocyte Count 0.69 10^3/uL (0.1-0.8); Absolute Neutrophil Count 5.62 10^3/uL (1.2-6.7); Basophils % 0.7; Eosinophils % 2.1; HCT 46.2 % (36.0-46.0); Immature Grans % 0.4; Lymphocytes % 20.2; MCH 29.1 pg (27.0-33.0); MCHC 32.5 % (32.0-36.0); MCV 90 fL (80-95); MPV 12.1 fL (8.0-11.0); Monocytes % 8.4; Neutrophils % 68.2; Platelet Count 230 10^3/uL (130-400); RBC 5.15 10^6/uL (3.93-5.22); RDW 12.5 % (11.7-14.6); RDW-SD 41.3 fL; WBC 8.23 10^3/uL (4.4-10.8)
[2023-02-07 23:31] LABS: ALT 21 U/L (14-59); AST 24 U/L (15-37); Albumin 3.6 g/dL (3.4-5.0); Alkaline Phosphatase 91 U/L (46-116); Anion Gap 8.4 mmol/L (3-11); BUN 10 mg/dL (7-18); Bilirubin, Total 0.7 mg/dL (0.2-1.0); CO2 34.6 mmol/L (21.0-32.0); CREATININE 0.8 mg/dL (0.55-1.02); Calcium 9.2 mg/dL (8.5-10.1); Chloride 103 mmol/L (98-107); Estimated GFR 77.27 (mL/min/1.73m2); Glucose 92 mg/dL (74-106); Potassium 3.9 mmol/L (3.5-5.1); Sodium 146 mmol/L (136-145); TSH (W/Ref FT4) 1.07 uIU/mL (0.36-3.74); Total Protein 6.5 g/dL (6.4-8.2)
[2023-02-09 11:21] LABS: Lyme Ab w Rflx to Lyme Confirm Negative (Negative)
[2023-02-11 16:57] LABS: Anaplasma phagocytophilum Negative (Negative); B. miyamotoi PCR Negative (Negative); Babesia divergens/MO-1 Negative (Negative); Babesia duncani Negative (Negative); Babesia microti Negative (Negative); Ehrlichia chaffeensis Negative (Negative); Ehrlichia ewingii/canis Negative (Negative); Ehrlichia muris eauclairensis Negative (Negative)
== END 2023-02-07 22:22 | disposition home or self-care (01) ==
LOC: LBN 22:21
PROVIDERS: PCP Nurse Practitioner Family; Visit Provider Physician Assistant
DX: R53.83 Other fatigue (principal)
CPT/HCPCS: 80053; 87798; 84443; 85025; 86618

== ENCOUNTER 2023-03-02 13:11 | Outpatient (CLI) | payer MEDICARE, MEDICAID, SELFPAY ==
[2023-03-02 15:32] LABS: Anion Gap 4.1 mmol/L (3-11); BUN 6 mg/dL (7-18); CO2 33.9 mmol/L (21.0-32.0); CREATININE 0.9 mg/dL (0.55-1.02); Calcium 9.1 mg/dL (8.5-10.1); Chloride 105 mmol/L (98-107); Estimated GFR 67.08 (mL/min/1.73m2); Glucose 127 mg/dL (74-106); Potassium 3.6 mmol/L (3.5-5.1); Sodium 143 mmol/L (136-145)
== END 2023-03-02 13:12 | disposition home or self-care (01) ==
LOC: LBO 13:11
PROVIDERS: PCP Nurse Practitioner Family; Visit Provider Internal Medicine Cardiovascular Disease
DX: I10 Essential (primary) hypertension (principal); E87.6 Hypokalemia
CPT/HCPCS: 36415; 80048

== ENCOUNTER 2023-04-22 20:23 | Emergency (ER) | payer MEDICARE, SELFPAY ==
[2023-04-22] VITALS (30 sets, daily range): BP systolic 140–175; BP diastolic 56–61; PULSE 74–85; RESP 12–29; TEMP 36.6; O2SAT 91–99
--- NOTE | 2023-04-22 20:30 | DI.RAD_ITS ---
Exam(s) XR CHEST 2V PA LATERAL EXAM: XR CHEST 2V PA LATERAL CLINICAL HISTORY: cough, shortness of breath TECHNIQUE: 2D digital imaging was performed. COMPARISON: CR,XR XR PORTABLE CHEST AP from 02/03/2022 FINDINGS: HEART: Normal size. Aorta: Not dilated. PULMONARY VASCULATURE: Normal. LUNGS: Emphysematous and fibrotic changes greater in the apices. No focal infiltrate pulmonary edema . PLEURAL SPACE: No pleural effusion or pneumothorax. BONE:Unremarkable old left proximal humeral fracture. IMPRESSION: No acute abnormality. DATA REPOSITORY: RADIATION DOSE DELIVERED:
--- NOTE | 2023-04-22 20:30 | RT.EKG_ITS ---
APPROVED REPORT Exam: Resting ECG Reason for Exam: short of breath Patient Location: E HR:91 bpm ECG Measurements Heart Rate 91 AXIS CA 136 P 56 QRSd 76 QRS 56 QT 389 T 38 QTc 479 Conclusion Unknown rhythm, irregular rate...V-rate 71-129, variation>10% AFIB w/RVR transitioning to NSR 90
[2023-04-22] MEDS: Albuterol/Ipratropium 3 ML UPD VIAL UPD ×2 (20:45→21:41)
[2023-04-22 20:50] LABS: Source Nasal/Nares
[2023-04-22 20:52] LABS: Abs Immature Grans 0.02 10^3/uL (0.0-0.06); Absolute Basophil Count 0.04 10^3/uL (0.0-0.2); Absolute Eosinophil Count 0.44 10^3/uL (0.0-0.7); Absolute Lymphocyte Count 1.95 10^3/uL (1.2-3.4); Absolute Monocyte Count 0.84 10^3/uL (0.1-0.8); Absolute Neutrophil Count 5.13 10^3/uL (1.2-6.7); Basophils % 0.5; Eosinophils % 5.2; HGB 13.7 g/dL (11.2-15.7); Immature Grans % 0.2; Lymphocytes % 23.2; MCH 29.6 pg (27.0-33.0); MCHC 33.4 % (32.0-36.0); MCV 89 fL (80-95); MPV 11.1 fL (8.0-11.0); Neutrophils % 60.9; Platelet Count 249 10^3/uL (130-400); RBC 4.63 10^6/uL (3.93-5.22); RDW 12.9 % (11.7-14.6); WBC 8.42 10^3/uL (4.4-10.8)
[2023-04-22 21:13] LABS: ALT 37 U/L (14-59); AST 31 U/L (15-37); Albumin 3.5 g/dL (3.4-5.0); Alkaline Phosphatase 85 U/L (46-116); Anion Gap 6.5 mmol/L (3-11); BUN 10 mg/dL (7-18); Bilirubin, Total 0.4 mg/dL (0.2-1.0); CO2 32.5 mmol/L (21.0-32.0); CREATININE 0.9 mg/dL (0.55-1.02); Calcium 9.1 mg/dL (8.5-10.1); Chloride 101 mmol/L (98-107); Estimated GFR 67.08 (mL/min/1.73m2); Glucose 109 mg/dL (74-106); NT-proBNP 143 pg/mL (<300); Potassium 3.6 mmol/L (3.5-5.1); Sodium 140 mmol/L (136-145); Total Protein 6.8 g/dL (6.4-8.2); Troponin I < 50 ng/L (<or=60)
[2023-04-22 21:20] LABS: COVID-19 PCR Negative (Negative)
[2023-04-22] MEDS: methylPREDNISolone SUCC 125 MG VIAL 80 MG IVP (21:41)
--- NOTE | 2023-04-22 21:44 | DI.VRAD_ITS ---
PROCEDURE INFORMATION: Exam: XR Chest Exam date and time: 04/22/2023 9:08 PM Age: 72 years old Clinical indication: Cough and shortness of breath; Patient HX: Cough, SOB TECHNIQUE: Imaging protocol: Radiologic exam of the chest. Views: 2 views. COMPARISON: XR PORTABLE CHEST AP 02/03/2022 8:08 PM FINDINGS: Lungs: Moderate hyperinflation suggesting underlying emphysema/COPD. Pleural spaces: No pleural effusion. Heart/Mediastinum: Normal heart size. Bones/joints: Degenerative thoracic spine. Old left humeral neck fracture. IMPRESSION: 1. COPD/emphysema with hyperinflation. No acute infiltrates or edema. 2. No acute pleural changes. 3. Degenerative thoracic spine. Dictated and Authenticated by: Socrates Rudolph MD. Ordering:SYLVIA Kirkpatrick MD
[2023-04-22] MEDS: Doxycycline Hyclate 100 MG, 2 CAPS/BTL PO (22:30)
--- NOTE | 2023-04-22 22:49 | ED.GENADUL_ITS ---
Discharge Plan Disposition Patient Disposition: Home Discharge Details Clinical Impression: Asthma exacerbation in COPD Primary Care Provider: Loulou Hare ED Provider: Kaya Snyder Home Meds and New Rx's Prescriptions: New doxycycline hyclate 100 mg capsule 100 mg PO BID Qty: 14 0RF tiotropium-olodaterol 2.5-2.5 mcg/actuation mist 2 puff inhalation DAILY Qty: 4 0RF ipratropium-albuterol 0.5 mg-3 mg(2.5 mg base)/3 mL solution for nebulization 3 ml inhalation Q6H PRNQty: 180 0RF prednisone 20 mg tablet 40 mg PO ONCE Qty: 10 0RF Continued mirtazapine 7.5 mg tablet 7.5 mg PO QHS Qty: 90 0RF alendronate 70 mg tablet 70 mg PO QWEEK Qty: 12 4RF lorazepam 1 mg tablet 1 mg PO HS PRN (Reason: anxiety) Qty: 28 0RF nitroglycerin [Nitrostat] 0.4 mg tablet, sublingual 0.4 mg Sublingual Q5 MIN PRN X3 PRN (Reason: Chest Pain) Qty: 30 0RF amlodipine 5 mg tablet 5 mg PO DAILY Qty: 90 3RF atorvastatin 80 mg tablet 80 mg PO QPM Qty: 90 4RF citalopram 20 mg tablet 40 mg PO DAILY Qty: 180 4RF furosemide 20 mg tablet 20 mg PO DAILY Qty: 30 11RF Rx Instructions: [facility] gabapentin 300 mg capsule 300 mg PO 1 tab am, 2tabs pm Qty: 270 4RF ipratropium-albuterol 0.5 mg-3 mg(2.5 mg base)/3 mL solution for nebulization 3 ml IH Q6H Qty: 90 4RF levothyroxine 50 mcg tablet 50 mcg PO DAILY Qty: 90 4RF Stiolto Respimat 2.5-2.5 mcg/actuation mist 2 puff IH DAILY Qty: 4 4RF Rx Instructions: Prescribed by [facility] pulmon[place] epinephrine [EpiPen 2-Mikel] 0.3 mg/0.3 mL auto-injector 0.3 mg IM ONCE Qty: 1 3RF Combivent Respimat 20-100 mcg/actuation mist 1 puff Inhalation Q4H PRN (Reason: Exacerbation COPD) Qty: 4 4RF Rx Instructions: dispense 3 inhalers (DME) Space Chamber Plus 1 EACH spacer 1 ea Miscellaneous PRN Qty: 1 0RF aspirin 81 MG tablet,delayed release (DR/EC) 81 mg PO DAILY 0RF Discharge Instructions Additional Instructions: Take yogurt daily while on antibiotic Take prednisone as prescribed Use DuoNebs every 4 hours while awake I refilled your inhaler, please use this Take the antibiotic as prescribed Return earlier should you have new or worsening complaints, 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 recommended Referrals: Loulou Hare NP [Primary Care Provider] - Medical Decision Making 72-year-old female, no acute distress, speaking in complete sentences, chest x- ray does not show evidence of acute abnormality Patient feeling improvement after 2 DuoNeb treatments, she is ambulatory with set ranging from 88-90, she is still able to speak in complete sentences, they are unsure of what her ambulatory baseline oxygen is, she states she feels marked improvement with ambulating after the 2 DuoNebs and steroids, will discharge patient home after long discussion, specifically offered admission for oxygen supplementation as needed, but patient does feel comfortable discharge home, she does have increased air movement on exam, she does have wheezing throughout that has improved throughout her stay, initially she was quite diminished, she is in no respiratory distress, her discharge oxygen is 94% on room air I did refill her Lorenzo tropia and prescription, she is placed on prednisone for the next 5 days, doxycycline, will use yogurt to prevent Opportunistic infection Patient will be discharged home will need close outpatient reassessment HPI General Date/Time Provider Initiated Documentation: 04/22/23 20:32 . HPI Narrative: 72-year-old female presents with report of increased work of breathing and wheezing over the course of the past week. She reportedly ran out of one of her inhalers, agreement and her breathing is worsened since that time. She states she is normally at 90% at home on room air, she is not oxygen dependent. She denies any chest pain or specifically pleuritic pain associated, she denies any new calf pain or swelling. She is using her rescue inhaler as prescribed. Denies current tobacco use. Denies known sick contacts. Related Data Home Medications Medication Instructions Recorded Confirmed inhalational spacing device (Space ##1 01/11/18 04/12/23 Chamber Plus) aspirin 81 mg tablet,delayed 81 mg PO DAILY 03/01/18 04/12/23 release nitroglycerin 0.4 mg sublingual 0.4 mg sublingual Q5 MIN PRN X3 08/30/21 04/12/23 tablet (Nitrostat) PRN Chest Pain #30 tabs amlodipine 5 mg tablet 5 mg PO DAILY #90 tabs 10/23/22 04/12/23 atorvastatin 80 mg tablet 80 mg PO QPM #90 tabs 10/23/22 04/12/23 citalopram 20 mg tablet 40 mg PO DAILY #180 tab-caps 10/23/22 04/12/23 furosemide 20 mg tablet 20 mg PO DAILY #30 tabs 10/23/22 04/12/23 gabapentin 300 mg capsule 300 mg PO 1 tab am, 2tabs pm #270 10/23/22 04/12/23 tabs ipratropium 0.5 mg-albuterol 3 mg 3 ml inhalation Q6H #90 mL 10/23/22 04/12/23 (2.5 mg base)/3 mL nebulization soln levothyroxine 50 mcg tablet 50 mcg PO DAILY #90 tab-caps 10/23/22 04/12/23 tiotropium 2.5 mcg-olodaterol 2.5 2 puff inhalation DAILY #4 grams 10/23/22 04/12/23 mcg/actuation mist for inhalation (Stiolto Respimat) epinephrine 0.3 mg/0.3 mL 0.3 mg (0.3 mL) IM ONCE #1 ea 12/11/22 04/12/23 injection, auto-injector (EpiPen 2-Mikel) ipratropium 20 mcg-albuterol 100 1 puff inhalation Q4H PRN 04/02/23 04/12/23 mcg/actuation mist for inhalation Exacerbation COPD #4 grams (Combivent Respimat) alendronate 70 mg tablet 70 mg PO QWEEK #12 tabs 04/07/23 04/12/23 lorazepam 1 mg tablet 1 mg PO HS PRN anxiety #28 tabs 04/07/23 04/12/23 mirtazapine 7.5 mg tablet 7.5 mg PO QHS #90 tabs 04/07/23 04/12/23 doxycycline hyclate 100 mg capsule 100 mg PO BID #14 caps 04/22/23 ipratropium 0.5 mg-albuterol 3 mg 3 ml inhalation Q6H PRN #180 mL 04/22/23 (2.5 mg base)/3 mL nebulization soln prednisone 20 mg tablet 40 mg PO ONCE #10 tabs 04/22/23 tiotropium 2.5 mcg-olodaterol 2.5 2 puff inhalation DAILY #4 grams 04/22/23 mcg/actuation mist for inhalation Previous Rx's Medication Instructions Recorded inhalational spacing device (Space ##1 01/11/18 Chamber Plus) aspirin 81 mg tablet,delayed 81 mg PO DAILY 03/01/18 release nitroglycerin 0.4 mg sublingual 0.4 mg sublingual Q5 MIN PRN X3 08/30/21 tablet (Nitrostat) PRN Chest Pain #30 tabs amlodipine 5 mg tablet 5 mg PO DAILY #90 tabs 10/23/22 atorvastatin 80 mg tablet 80 mg PO QPM #90 tabs 10/23/22 citalopram 20 mg tablet 40 mg PO DAILY #180 tab-caps 10/23/22 furosemide 20 mg tablet 20 mg PO DAILY #30 tabs 10/23/22 gabapentin 300 mg capsule 300 mg PO 1 tab am, 2tabs pm #270 10/23/22 tabs ipratropium 0.5 mg-albuterol 3 mg 3 ml inhalation Q6H #90 mL 10/23/22 (2.5 mg base)/3 mL nebulization soln levothyroxine 50 mcg tablet 50 mcg PO DAILY #90 tab-caps 10/23/22 tiotropium 2.5 mcg-olodaterol 2.5 2 puff inhalation DAILY #4 grams 10/23/22 mcg/actuation mist for inhalation (Stiolto Respimat) epinephrine 0.3 mg/0.3 mL 0.3 mg (0.3 mL) IM ONCE #1 ea 12/11/22 injection, auto-injector (EpiPen 2-Mikel) ipratropium 20 mcg-albuterol 100 1 puff inhalation Q4H PRN 04/02/23 mcg/actuation mist for inhalation Exacerbation COPD #4 grams (Combivent Respimat) alendronate 70 mg tablet 70 mg PO QWEEK #12 tabs 04/07/23 lorazepam 1 mg tablet 1 mg PO HS PRN anxiety #28 tabs 04/07/23 mirtazapine 7.5 mg tablet 7.5 mg PO QHS #90 tabs 04/07/23 doxycycline hyclate 100 mg capsule 100 mg PO BID #14 caps 04/22/23 ipratropium 0.5 mg-albuterol 3 mg 3 ml inhalation Q6H PRN #180 mL 04/22/23 (2.5 mg base)/3 mL nebulization soln prednisone 20 mg tablet 40 mg PO ONCE #10 tabs 04/22/23 tiotropium 2.5 mcg-olodaterol 2.5 2 puff inhalation DAILY #4 grams 04/22/23 mcg/actuation mist for inhalation Allergies Allergy/AdvReac Type Severity Reaction Status Date / Time bee venom protein (honey bee) Allergy Severe Anaphylaxsi Verified 04/12/23 16:45 s tetanus toxoid, adsorbed Allergy Severe swelling,fe Verified 04/12/23 16:45 geneva benzonatate Allergy Mild rash Verified 04/12/23 16:45 [From Tessalon Perles] sulfamethoxazole Allergy Itching Verified 04/12/23 16:45 amoxicillin trihydrate AdvReac Intermediate Diarrhea - Verified 04/12/23 16:45 [From Augmentin] Severe potassium clavulanate AdvReac Intermediate Diarrhea - Verified 04/12/23 16:45 [From Augmentin] Severe insects Allergy Severe Anaphylaxsi Uncoded 04/12/23 16:45 s General Stated Complaint: SOB HOLLIS: 3 PFSH All Active Problems (Updated 04/22/23 @ 22:23 by SHARONDA Pollack) Asthma exacerbation in COPD (Acute) COPD (chronic obstructive pulmonary disease) (Chronic) Essential hypertension (Chronic 09/03/14) Hypothyroidism (Chronic 09/03/14) Lupus (systemic lupus erythematosus) (Chronic 09/03/14) rheum [facility] previously- stable on meds 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 seen at [facility] - has been stable on meds Anxiety (Chronic 09/03/14) Right carotid bruit (Acute) Osteoarthritis (Chronic) Osteoporosis (Chronic) 1-2121; left arm, started fosamax Shoulder pain, right (Acute) COVID-19 (Acute) Medical History CAD (coronary artery disease), [place] coronary artery sees cardiology at [facility] yearly Hymenoptera allergy (12/04/14) NSTEMI (non-ST elevated myocardial infarction) Pharyngoesophageal dysphagia Normal larygoscopy 07/2020 Surgical History History of ankle surgery Family History Mother Asthma Father Diabetes Grandfather No problems noted. Grandfather No problems noted. Grandmother No problems noted. Grandmother No problems noted. Social History Smoking/Tobacco Use Status: Former Tobacco Use Tobacco: How many years used: 30 Quit status: has quit before (15 years ago) Smoking risk assessment performed?: Yes Alcohol Intake: current Alcohol Intake frequency: a few times a month Drug use: Never Substance use type: does not use Household members: children and other Details: 4 WITH 3 SONS Duration: 15-30 minutes/day Frequency: 1-2 times per week Seatbelt use: always Do you feel safe at home: Yes Do you feel safe in your relationship?: Yes Course Vital Signs Vital signs: Vital Signs Temperature 36.6 C 04/22/23 20:26 Pulse 82 04/22/23 20:26 Respiratory Rate 16 04/22/23 20:26 Blood Pressure 175/58 H 04/22/23 20:26 Pulse Oximetry 98 04/22/23 20:26 Temperature 36.6 C 04/22/23 20:26 Temperature Source Oral 04/22/23 20:26 Pulse 85 04/22/23 22:37 Respiratory Rate 18 04/22/23 22:40 Respiratory Effort Short of Breath 04/22/23 20:44 Respiratory Depth Shallow 04/22/23 20:44 Respiratory Pattern Normal 04/22/23 20:44 Blood Pressure 146/59 H 04/22/23 22:37 Pulse Oximetry 92 04/22/23 22:37 Oxygen Delivery Method Room Air 04/22/23 20:26 Oxygen Flow Rate 0 04/22/23 20:26 Pain Level 0 04/22/23 20:26 Lab/Test Results Lab/Test Results: Laboratory Tests Range/Units 04/22/23 04/22/23 04/22/23 20:35 20:35 20:35 WBC (4.4-10.8) 10^3/uL 8.42 RBC (3.93-5.22) 10^6/uL 4.63 Hgb (11.2-15.7) g/dL 13.7 Hct (36.0-46.0) % 41.0 MCV (80-95) fL 89 MCH (27.0-33.0) pg 29.6 MCHC (32.0-36.0) % 33.4 RDW (11.7-14.6) % 12.9 Plt Count (130-400) 10^3/uL 249 MPV (8.0-11.0) fL 11.1 H Immature Gran % 0.2 Neutrophils % 60.9 Lymphocytes % 23.2 Monocytes % 10.0 Eosinophils % 5.2 Basophils % 0.5 Nucleated RBC % (0.0-0.3) % 0.0 Absolute Neutrophils (1.2-6.7) 10^3/uL 5.13 Absolute Lymphocytes (1.2-3.4) 10^3/uL 1.95 Absolute Monocytes (0.1-0.8) 10^3/uL 0.84 H Absolute Eosinophils (0.0-0.7) 10^3/uL 0.44 Absolute Basophils (0.0-0.2) 10^3/uL 0.04 Sodium (136-145) mmol/L 140 Potassium (3.5-5.1) mmol/L 3.6 Chloride (98-107) mmol/L 101 Carbon Dioxide (21.0-32.0) mmol/L 32.5 H Anion Gap (3-11) mmol/L 6.5 BUN (7-18) mg/dL 10 Creatinine (0.55-1.02) mg/dL 0.9 Est GFR (CKD-EPI 2020) (mL/min/1.73m2) 67.08 Glucose (74-106) mg/dL 109 H Calcium (8.5-10.1) mg/dL 9.1 Total Bilirubin (0.2-1.0) mg/dL 0.4 AST (15-37) U/L 31 ALT (14-59) U/L 37 Alkaline Phosphatase (46-116) U/L 85 Troponin I (<or=60) ng/L < 50 NT-Pro-B Natriuret Pep (<300) pg/mL 143 Total Protein (6.4-8.2) g/dL 6.8 Albumin (3.4-5.0) g/dL 3.5 COVID-19 Source Nasal/Nares SARS-CoV-2 (PCR) (Negative) Negative
== END 2023-04-22 22:47 | disposition home or self-care (01) ==
PROVIDERS: Emergency Provider Physician Assistant; PCP Nurse Practitioner Family
DX: J44.1 Chronic obstructive pulmonary disease with (acute) exacerbation (principal); J45.901 Unspecified asthma with (acute) exacerbation
CPT/HCPCS: 36415; 80053; 87635; 93005; 96374; 99284; 71046; 83880; 84484; 85025; 93010; J2930; J7620

== ENCOUNTER 2023-07-08 01:36 | Observation (INO) | payer MEDICARE, SELFPAY ==
[2023-07-08] VITALS (37 sets, daily range): BP systolic 114–176; BP diastolic 17–109; PULSE 77–101; RESP 5–31; TEMP 35.8–37.4; O2SAT 89–97
--- NOTE | 2023-07-08 01:30 | RT.EKG_ITS ---
APPROVED REPORT Exam: Resting ECG Reason for Exam: sob Patient Location: E HR:96 bpm ECG Measurements Heart Rate 96 AXIS MN 139 P 74 QRSd 71 QRS 47 QT 313 T 254 QTc 396 Conclusion Sinus rhythm...normal P axis, V-rate 60- 99 Repol abnrm is most pronounced in the inferior limb leads. Overall study unchanged from 04/2022
--- NOTE | 2023-07-08 01:45 | DI.RAD_ITS ---
Exam(s) XR PORTABLE CHEST AP EXAM: XR PORTABLE CHEST AP CLINICAL HISTORY: shortness of breath, COPD. TECHNIQUE: 2D digital imaging was performed. COMPARISON: CR,XR XR CHEST 2V PA LATERAL from 04/22/2023 FINDINGS: Single AP portable view. Heart size is upper normal. The mediastinum is not widened. Increased markings both lung fraire is unchanged from prior studies but there are no confluent infilt rates nor pleural effusions. No evidence of pulmonary edema. No pneumothorax. Left shoulder degene rative changes-fracture deformity again evident. IMPRESSION: COPD but no acute infiltrates. No pleural effusions. DATA REPOSITORY: RADIATION DOSE DELIVERED:
[2023-07-08] MEDS: methylPREDNISolone SUCC 125 MG VIAL IVP (02:09)
[2023-07-08 02:12] LABS: Abs Immature Grans 0.05 10^3/uL (0.0-0.06); Absolute Lymphocyte Count 1.86 10^3/uL (1.2-3.4); BE (Venous) 11 mmol/L (-2-3); Basophils % 0.4; Eosinophils % 1.4; HCO3 (Venous) 36 mmol/L (23-28); HCT 43.4 % (36.0-46.0); HGB 14.3 g/dL (11.2-15.7); Immature Grans % 0.4; Lymphocytes % 13.3; MCH 29.4 pg (27.0-33.0); MCHC 32.9 % (32.0-36.0); MCV 89 fL (80-95); MPV 11.9 fL (8.0-11.0); Monocytes % 9.3; Neutrophils % 75.2; O2 Sat (Venous) 61 %; Platelet Count 177 10^3/uL (130-400); RBC 4.87 10^6/uL (3.93-5.22); RDW 13.1 % (11.7-14.6); TCO2 (Venous) 32 mmol/L (24-29); pCO2 (Venous) 58 mmHg (41-51); pO2 (Venous) 34 mmHg
[2023-07-08 02:14] LABS: Absolute Basophil Count 0.06 10^3/uL (0.0-0.2); Absolute Neutrophil Count 10.53 10^3/uL (1.2-6.7)
[2023-07-08] MEDS: Albuterol/Ipratropium 3 ML UPD VIAL UPD ×4 (02:14→17:51)
--- NOTE | 2023-07-08 02:25 | ED.GENADUL_ITS ---
Discharge Plan Disposition Patient Disposition: Admit to [facility] Condition: Improving Discharge Details Chief Complaint: SOB Clinical Impression: COPD (chronic obstructive pulmonary disease) Primary Care Provider: Loulou Hare ED Provider: Luis Hollins Home Meds and New Rx's Prescriptions: No Action mirtazapine 7.5 mg tablet 7.5 mg PO QHS Qty: 90 0RF alendronate 70 mg tablet 70 mg PO QWEEK Qty: 12 4RF lorazepam 1 mg tablet 1 mg PO HS PRN (Reason: anxiety) Qty: 28 0RF nitroglycerin [Nitrostat] 0.4 mg tablet, sublingual 0.4 mg Sublingual Q5 MIN PRN X3 PRN (Reason: Chest Pain) Qty: 30 0RF amlodipine 5 mg tablet 5 mg PO DAILY Qty: 90 3RF atorvastatin 80 mg tablet 80 mg PO QPM Qty: 90 4RF citalopram 20 mg tablet 40 mg PO DAILY Qty: 180 4RF furosemide 20 mg tablet 20 mg PO DAILY Qty: 30 11RF Rx Instructions: [facility] [place] gabapentin 300 mg capsule 300 mg PO 1 tab am, 2tabs pm Qty: 270 4RF levothyroxine 50 mcg tablet 50 mcg PO DAILY Qty: 90 4RF epinephrine [EpiPen 2-Mikel] 0.3 mg/0.3 mL auto-injector 0.3 mg IM ONCE Qty: 1 3RF Combivent Respimat 20-100 mcg/actuation mist 1 puff Inhalation Q4H PRN (Reason: Exacerbation COPD) Qty: 4 4RF Rx Instructions: dispense 3 inhalers tiotropium-olodaterol 2.5-2.5 mcg/actuation mist 2 puff inhalation DAILY Qty: 4 3RF doxycycline hyclate 100 mg capsule 100 mg PO BID Qty: 14 0RF ipratropium-albuterol 0.5 mg-3 mg(2.5 mg base)/3 mL solution for nebulization 3 ml inhalation Q6H PRNQty: 180 0RF prednisone 20 mg tablet 40 mg PO ONCE Qty: 10 0RF (DME) Space Chamber Plus 1 EACH spacer 1 ea Miscellaneous PRN Qty: 1 0RF aspirin 81 MG tablet,delayed release (DR/EC) 81 mg PO DAILY 0RF Medical Decision Making The patient was seen and examined. Her physical examination and presentation seem consistent with a COPD exacerbation. The patient denies any recent upper respiratory tract symptoms that might have served as a trigger for this exacerbation. There is no febrile here and no reported fever or chills at home. The patient denies having any increased amount of coughing or phlegm production compared to her baseline. The patient has used multiple labs prior to coming to the emergency room and was given 1 neb by EMS and 1 nebulizer treatment here. She continues to have diffuse inspiratory and expiratory wheezes with supplemental oxygen required to keep her oxygen level in the mid 90s. The patient tells me that she never uses oxygen at home typically. The patient will require admission for ongoing supportive care with supplemental oxygenation, serial nebulizer therapy, and serial steroid therapy as a bridge to improvement in lung compliance for discharge for ongoing treatment as an outpatient. HPI General Date/Time Provider Initiated Documentation: 07/08/23 01:43 . HPI Narrative: The patient is a 72-year-old female, with a past medical history significant for COPD related to long-term tobacco abuse use disorder, presents to the emergency room this evening complaining of shortness of breath which has been worsening over the course of the evening. The patient tried her home nebulizer machine without much improvement in her symptoms. The patient tells me that she does not typically get COPD exacerbations, and thinks the last one that she had was almost a decade ago. The patient denies having any upper respiratory tract prodromal symptoms that she knows of such as runny nose, increased cough, or sore throat. The patient also denies any recent sick contacts with family members, grandkids, or general public. Related Data Home Medications Medication Instructions Recorded Confirmed inhalational spacing device (Space ##1 01/11/18 04/26/23 Chamber Plus) aspirin 81 mg tablet,delayed 81 mg PO DAILY 03/01/18 07/08/23 release nitroglycerin 0.4 mg sublingual 0.4 mg sublingual Q5 MIN PRN X3 08/30/21 07/08/23 tablet (Nitrostat) PRN Chest Pain #30 tabs amlodipine 5 mg tablet 5 mg PO DAILY #90 tabs 10/23/22 07/08/23 atorvastatin 80 mg tablet 80 mg PO QPM #90 tabs 10/23/22 07/08/23 citalopram 20 mg tablet 40 mg (2 x 20 mg) PO DAILY #180 10/23/22 07/08/23 tab-caps furosemide 20 mg tablet 20 mg PO DAILY #30 tabs 10/23/22 07/08/23 gabapentin 300 mg capsule 300 mg PO 1 tab am, 2tabs pm #270 10/23/22 07/08/23 tabs levothyroxine 50 mcg tablet 50 mcg PO DAILY #90 tab-caps 10/23/22 07/08/23 epinephrine 0.3 mg/0.3 mL 0.3 mg (0.3 mL) IM ONCE #1 ea 12/11/22 07/08/23 injection, auto-injector (EpiPen 2-Mikel) ipratropium 20 mcg-albuterol 100 1 puff inhalation Q4H PRN 04/02/23 07/08/23 mcg/actuation mist for inhalation Exacerbation COPD #4 grams (Combivent Respimat) alendronate 70 mg tablet 70 mg PO QWEEK #12 tabs 04/07/23 07/08/23 lorazepam 1 mg tablet 1 mg PO HS PRN anxiety #28 tabs 04/07/23 07/08/23 mirtazapine 7.5 mg tablet 7.5 mg PO QHS #90 tabs 04/07/23 07/08/23 doxycycline hyclate 100 mg capsule 100 mg PO BID #14 caps 04/22/23 07/08/23 ipratropium 0.5 mg-albuterol 3 mg 3 ml inhalation Q6H PRN #180 mL 04/22/23 07/08/23 (2.5 mg base)/3 mL nebulization soln prednisone 20 mg tablet 40 mg (2 x 20 mg) PO ONCE #10 tabs 04/22/23 07/08/23 tiotropium 2.5 mcg-olodaterol 2.5 2 puff inhalation DAILY #4 grams 07/02/23 07/08/23 mcg/actuation mist for inhalation Previous Rx's Medication Instructions Recorded inhalational spacing device (Space ##1 01/11/18 Chamber Plus) aspirin 81 mg tablet,delayed 81 mg PO DAILY 03/01/18 release nitroglycerin 0.4 mg sublingual 0.4 mg sublingual Q5 MIN PRN X3 08/30/21 tablet (Nitrostat) PRN Chest Pain #30 tabs amlodipine 5 mg tablet 5 mg PO DAILY #90 tabs 10/23/22 atorvastatin 80 mg tablet 80 mg PO QPM #90 tabs 10/23/22 citalopram 20 mg tablet 40 mg (2 x 20 mg) PO DAILY #180 10/23/22 tab-caps furosemide 20 mg tablet 20 mg PO DAILY #30 tabs 10/23/22 gabapentin 300 mg capsule 300 mg PO 1 tab am, 2tabs pm #270 10/23/22 tabs levothyroxine 50 mcg tablet 50 mcg PO DAILY #90 tab-caps 10/23/22 epinephrine 0.3 mg/0.3 mL 0.3 mg (0.3 mL) IM ONCE #1 ea 12/11/22 injection, auto-injector (EpiPen 2-Mikel) ipratropium 20 mcg-albuterol 100 1 puff inhalation Q4H PRN 04/02/23 mcg/actuation mist for inhalation Exacerbation COPD #4 grams (Combivent Respimat) alendronate 70 mg tablet 70 mg PO QWEEK #12 tabs 04/07/23 lorazepam 1 mg tablet 1 mg PO HS PRN anxiety #28 tabs 04/07/23 mirtazapine 7.5 mg tablet 7.5 mg PO QHS #90 tabs 04/07/23 doxycycline hyclate 100 mg capsule 100 mg PO BID #14 caps 04/22/23 ipratropium 0.5 mg-albuterol 3 mg 3 ml inhalation Q6H PRN #180 mL 04/22/23 (2.5 mg base)/3 mL nebulization soln prednisone 20 mg tablet 40 mg (2 x 20 mg) PO ONCE #10 tabs 04/22/23 tiotropium 2.5 mcg-olodaterol 2.5 2 puff inhalation DAILY #4 grams 07/02/23 mcg/actuation mist for inhalation Allergies Allergy/AdvReac Type Severity Reaction Status Date / Time bee venom protein (honey bee) Allergy Severe Anaphylaxsi Verified 07/08/23 01:43 s tetanus toxoid, adsorbed Allergy Severe swelling,fe Verified 07/08/23 01:43 geneva benzonatate Allergy Mild rash Verified 07/08/23 01:43 [From Kim Kern] sulfamethoxazole Allergy Itching Verified 07/08/23 01:43 amoxicillin trihydrate AdvReac Intermediate Diarrhea - Verified 07/08/23 01:43 [From Augmentin] Severe potassium clavulanate AdvReac Intermediate Diarrhea - Verified 07/08/23 01:43 [From Augmentin] Severe insects Allergy Severe Anaphylaxsi Uncoded 07/08/23 01:43 s General Stated Complaint: SOB HOLLIS: 2 PFSH All Active Problems (Updated 07/08/23 @ 03:00 by Luis Hollins MD) COPD (chronic obstructive pulmonary disease) (Chronic) Essential hypertension (Chronic 09/03/14) Hypothyroidism (Chronic 09/03/14) Lupus (systemic lupus erythematosus) (Chronic 09/03/14) rheum [facility] [place] previously- stable on meds 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 seen at [facility] [place] - has been stable on meds Anxiety (Chronic 09/03/14) Right carotid bruit (Acute) Osteoarthritis (Chronic) Osteoporosis (Chronic) -2121; left arm, started fosamax Shoulder pain, right (Acute) COVID-19 (Acute) Medical History CAD (coronary artery disease), [place] coronary artery sees cardiology at [facility] [place] yearly Hymenoptera allergy (12/04/14) NSTEMI (non-ST elevated myocardial infarction) Pharyngoesophageal dysphagia Normal larygoscopy 07/2020 Surgical History History of ankle surgery Family History Mother Asthma Father Diabetes Grandfather No problems noted. Grandfather No problems noted. Grandmother No problems noted. Grandmother No problems noted. Social History Smoking/Tobacco Use Status: Former Tobacco Use Tobacco: How many years used: 30 Quit status: has quit before (15 years ago) Smoking risk assessment performed?: Yes Alcohol Intake: current Alcohol Intake frequency: a few times a month Drug use: Never Substance use type: does not use Household members: children and other Details: 4 WITH 3 SONS Duration: 15-30 minutes/day Frequency: 1-2 times per week Seatbelt use: always Do you feel safe at home: Yes Do you feel safe in your relationship?: Yes Exam Const General: cooperative and acute distress mild HENMT General nose exam: external nose normal and no nasal discharge Resp Effort & Inspection: abnormal respiratory pattern, pursed lip breathing and uses accessory muscles Auscultation: wheezes expiratory wheezes and inspiratory wheezes Cardio Rate: regular rate Rhythm: regular rhythm Neuro Cranial Nerves: CN's II-XI intact bilaterally Cognition: normal cognition Speech: speech normal Motor: muscle tone normal throughout Sensory Exam: no sensory deficits noted Course Vital Signs Vital signs: Vital Signs Temperature 36.7 C 07/08/23 01:33 Pulse 101 H 07/08/23 01:33 Respiratory Rate 26 H 07/08/23 01:33 Blood Pressure 125/97 H 07/08/23 01:33 Pulse Oximetry 91 L 07/08/23 01:33 Temperature 36.7 C 07/08/23 01:33 Temperature Source Temporal Artery Scan 07/08/23 01:33 Pulse 92 H 07/08/23 02:18 Respiratory Rate 20 07/08/23 02:18 Respiratory Effort Short of Breath 07/08/23 02:18 Respiratory Depth Normal 07/08/23 02:18 Respiratory Pattern Normal 07/08/23 02:18 Blood Pressure 125/97 H 07/08/23 01:33 Pulse Oximetry 96 07/08/23 02:18 Oxygen Delivery Method Nasal Cannula 07/08/23 02:18 Oxygen Flow Rate 2 07/08/23 02:18 Pain Level 0 07/08/23 01:33 Lab/Test Results Lab/Test Results: Laboratory Tests Range/Units 07/08/23 01:45 WBC (4.4-10.8) 10^3/uL 14.00 H RBC (3.93-5.22) 10^6/uL 4.87 Hgb (11.2-15.7) g/dL 14.3 Hct (36.0-46.0) % 43.4 MCV (80-95) fL 89 MCH (27.0-33.0) pg 29.4 MCHC (32.0-36.0) % 32.9 RDW (11.7-14.6) % 13.1 Plt Count (130-400) 10^3/uL 177 MPV (8.0-11.0) fL 11.9 H Immature Gran % 0.4 Neutrophils % 75.2 Lymphocytes % 13.3 Monocytes % 9.3 Eosinophils % 1.4 Basophils % 0.4 Nucleated RBC % (0.0-0.3) % 0.0 Absolute Neutrophils (1.2-6.7) 10^3/uL 10.53 H Absolute Lymphocytes (1.2-3.4) 10^3/uL 1.86 Absolute Monocytes (0.1-0.8) 10^3/uL 1.30 H Absolute Eosinophils (0.0-0.7) 10^3/uL 0.20 Absolute Basophils (0.0-0.2) 10^3/uL 0.06 VBG pH (7.31-7.41) 7.40 VBG pCO2 (41-51) mmHg 58 H VBG pO2 mmHg 34 VBG HCO3 (23-28) mmol/L 36 H VBG Total CO2 (24-29) mmol/L 32 H VBG O2 Saturation % 61 VBG Base Excess (-2-3) mmol/L 11 H
[2023-07-08 02:33] LABS: ALT 24 U/L (14-59); AST 30 U/L (15-37); Albumin 3.4 g/dL (3.4-5.0); Alkaline Phosphatase 70 U/L (46-116); Anion Gap 5.9 mmol/L (3-11); BUN 17 mg/dL (7-18); Bilirubin, Total 1.2 mg/dL (0.2-1.0); CO2 35.1 mmol/L (21.0-32.0); CREATININE 0.9 mg/dL (0.55-1.02); Calcium 9.3 mg/dL (8.5-10.1); Chloride 102 mmol/L (98-107); Estimated GFR 67.08 (mL/min/1.73m2); Glucose 103 mg/dL (74-106); Magnesium 1.6 mg/dL (1.8-2.4); Potassium 3.4 mmol/L (3.5-5.1); Sodium 143 mmol/L (136-145); Total Protein 6.3 g/dL (6.4-8.2); Troponin I < 50 ng/L (<or=60)
[2023-07-08 02:49] LABS: COVID-19 PCR Negative (Negative); Influenza A PCR Negative (Negative); Influenza B PCR Negative (Negative); RSV PCR Negative (Negative)
--- NOTE | 2023-07-08 02:49 | DI.VRAD_ITS ---
PROCEDURE INFORMATION: Exam: XR Chest Exam date and time: 07/08/2023 2:12 AM Age: 72 years old Clinical indication: Patient HX: Shortness of breath, copd TECHNIQUE: Imaging protocol: Radiologic exam of the chest. Views: 1 view. COMPARISON: CR XR CHEST 2V PA LATERAL 04/22/2023 9:08 PM FINDINGS: Lungs: The lungs appear hyperexpanded. There is diffuse coarsening of the interstitial pulmonary markings suspicious for underlying chronic lung disease such as emphysema. No pulmonary consolidation is seen. Pleural spaces: No pleural effusion or pneumothorax is demonstrated. Heart/Mediastinum: The heart appears top-normal in size. There is atherosclerotic calcification at the apex of the aortic arch. Bones/joints: There is gross deformity of the left humeral head, also seen on the prior exam. Old trauma is suggested. IMPRESSION: 1. No active disease is seen in the chest. 2. Pulmonary hyperexpansion and diffuse coarsening of the interstitial pulmonary markings suspicious for chronic lung disease such as emphysema. Dictated and Authenticated by: Marlon Etienne MD. Ordering:LINDA Smith MD
[2023-07-08 02:54] LABS: Source Nasopharynx
--- NOTE | 2023-07-08 03:00 | W.PM.HP.N ---
Date of service: 07/08/23 Time of Service: 06:06 Assessment and Plan Assessment and plan (1) Acute exacerbation of chronic obstructive pulmonary disease (COPD): Status: Acute Assessment and plan: - Patient has a known history of COPD and states her last exacerbation was over a decade ago -Given presentation of progressively worsening shortness of breath, decreased breath sounds with minimal end expiratory wheezing, she was likely experiencing a COPD exacerbation -Status post IV Solu-Medrol in the emergency department -We will initiate p.o. prednisone 40 mg daily starting this morning -We will continue scheduled DuoNebs with as needed albuterol for shortness of breath (2) Acute respiratory failure with hypoxia: Status: Acute Assessment and plan: - Secondary to COPD exacerbation as noted above -Currently on 2 L nasal cannula -Wean as tolerated with goal oxygen saturation between 88 and 92% (3) Hypothyroidism: Status: Chronic Assessment and plan: - Continue home levothyroxine (4) Essential hypertension: Status: Chronic Assessment and plan: - Continue home Lasix and amlodipine History of Present Illness History of Present Illness Chief Complaint: Shortness of breath Narrative: 72-year-old female with past medical history of long-term tobacco use disorder, hypertension, hyperlipidemia, hypertension, depression and COPD presents to the emergency department after experiencing progressively worsening shortness of breath over the course of previous evening. Patient states she tried her home nebulizer and did not experience much improvement in her symptoms. She also states that she does not usually get COPD exacerbations and that the last one she had may have been over a decade ago. EMS reportedly found the patient with an oxygen saturation in the mid 80s and placed on 2 L nasal cannula she denies having any lightheadedness, dizziness, productive sputum, fever, nausea vomiting or diarrhea. In the emergency department the patient was mildly tachycardic with heart rate of 94, blood pressure of 125/97, respiratory rate of 26, and oxygen saturation of 91% on 2 L nasal cannula. On physical exam the patient had diminished breath sounds with minimally audible diffuse expiratory wheezing. CBC showed a white blood cell count of 14 chest x-ray did not show any acute findings but was notable for pulmonary hyperexpansion. Patient was given dose of IV Solu-Medrol and DuoNebs without improvement in her oxygen saturation. Which the emergency room physician paged hospitalist for admission for patient with a COPD exacerbation and acute hypoxic respiratory failure. 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 seen at [facility] - has been stable on meds Anxiety (Chronic 09/03/14) Right carotid bruit (Acute) Osteoarthritis (Chronic) Osteoporosis (Chronic) ; left arm, started fosamax Shoulder pain, right (Acute) COVID-19 (Acute) Medical History CAD (coronary artery disease), [place] coronary artery sees cardiology at [facility] yearly Hymenoptera allergy (12/04/14) NSTEMI (non-ST elevated myocardial infarction) Pharyngoesophageal dysphagia Normal larygoscopy 07/2020 Surgical History History of ankle surgery Family History Mother Asthma Father Diabetes Grandfather No problems noted. Grandfather No problems noted. Grandmother No problems noted. Grandmother No problems noted. Social History Smoking/Tobacco Use Status: Former Tobacco Use Tobacco: How many years used: 30 Quit status: has quit before (15 years ago) Smoking risk assessment performed?: Yes Alcohol Intake: current Alcohol Intake frequency: a few times a month Drug use: Never Substance use type: does not use Household members: children and other Details: 4 WITH 3 SONS Housing: house Duration: 15-30 minutes/day Frequency: 1-2 times per week Seatbelt use: always Do you feel safe at home: Yes Do you feel safe in your relationship?: Yes Meds Allergies and Home Medications Allergies Allergy/AdvReac Type Severity Reaction Status Date / Time bee venom protein (honey bee) Allergy Severe Anaphylaxsi Verified 07/08/23 01:43 s tetanus toxoid, adsorbed Allergy Severe swelling,fe Verified 07/08/23 01:43 geneva benzonatate Allergy Mild rash Verified 07/08/23 01:43 [From Tessalon Perles] sulfamethoxazole Allergy Itching Verified 07/08/23 01:43 amoxicillin trihydrate AdvReac Intermediate Diarrhea - Verified 07/08/23 01:43 [From Augmentin] Severe potassium clavulanate AdvReac Intermediate Diarrhea - Verified 07/08/23 01:43 [From Augmentin] Severe insects Allergy Severe Anaphylaxsi Uncoded 07/08/23 01:43 s Home Medications Medication Instructions Recorded Confirmed Type inhalational spacing device (Space ##1 01/11/18 04/26/23 Rx Chamber Plus) aspirin 81 mg tablet,delayed 81 mg PO DAILY 03/01/18 07/08/23 Rx release nitroglycerin 0.4 mg sublingual 0.4 mg sublingual Q5 MIN PRN X3 08/30/21 07/08/23 Rx tablet (Nitrostat) PRN Chest Pain #30 tabs amlodipine 5 mg tablet 5 mg PO DAILY #90 tabs 10/23/22 07/08/23 Rx atorvastatin 80 mg tablet 80 mg PO QPM #90 tabs 10/23/22 07/08/23 Rx citalopram 20 mg tablet 40 mg (2 x 20 mg) PO DAILY #180 10/23/22 07/08/23 Rx tab-caps furosemide 20 mg tablet 20 mg PO DAILY #30 tabs 10/23/22 07/08/23 Rx gabapentin 300 mg capsule 300 mg PO 1 tab am, 2tabs pm #270 10/23/22 07/08/23 Rx tabs levothyroxine 50 mcg tablet 50 mcg PO DAILY #90 tab-caps 10/23/22 07/08/23 Rx epinephrine 0.3 mg/0.3 mL 0.3 mg (0.3 mL) IM ONCE #1 ea 12/11/22 07/08/23 Rx injection, auto-injector (EpiPen 2-Mikel) ipratropium 20 mcg-albuterol 100 1 puff inhalation Q4H PRN 04/02/23 07/08/23 Rx mcg/actuation mist for inhalation Exacerbation COPD #4 grams (Combivent Respimat) alendronate 70 mg tablet 70 mg PO QWEEK #12 tabs 04/07/23 07/08/23 Rx lorazepam 1 mg tablet 1 mg PO HS PRN anxiety #28 tabs 04/07/23 07/08/23 Rx mirtazapine 7.5 mg tablet 7.5 mg PO QHS #90 tabs 04/07/23 07/08/23 Rx doxycycline hyclate 100 mg capsule 100 mg PO BID #14 caps 04/22/23 07/08/23 Rx ipratropium 0.5 mg-albuterol 3 mg 3 ml inhalation Q6H PRN #180 mL 04/22/23 07/08/23 Rx (2.5 mg base)/3 mL nebulization soln prednisone 20 mg tablet 40 mg (2 x 20 mg) PO ONCE #10 tabs 04/22/23 07/08/23 Rx tiotropium 2.5 mcg-olodaterol 2.5 2 puff inhalation DAILY #4 grams 07/02/23 07/08/23 Rx mcg/actuation mist for inhalation Exam Narrative Exam Narrative: Elderly female laying in bed in no acute distress, ANO x4, [address] cannula in place, heart regular in rhythm, lungs breath sounds somewhat diminished with diffuse wheezing throughout, abdomen soft, nontender nondistended Results Labs 07/08/23 01:45 07/08/23 01:45 Labs: Laboratory Results - last 24 hr 07/08/23 07/08/23 01:45 02:10 WBC 14.00 H RBC 4.87 Hgb 14.3 Hct 43.4 MCV 89 MCH 29.4 MCHC 32.9 RDW 13.1 Plt Count 177 MPV 11.9 H Immature Gran % 0.4 Neutrophils % 75.2 Lymphocytes % 13.3 Monocytes % 9.3 Eosinophils % 1.4 Basophils % 0.4 Nucleated RBC % 0.0 Absolute Neutrophils 10.53 H Absolute Lymphocytes 1.86 Absolute Monocytes 1.30 H Absolute Eosinophils 0.20 Absolute Basophils 0.06 VBG pH 7.40 VBG pCO2 58 H VBG pO2 34 VBG HCO3 36 H VBG Total CO2 32 H VBG O2 Saturation 61 VBG Base Excess 11 H Sodium 143 Potassium 3.4 L Chloride 102 Carbon Dioxide 35.1 H Anion Gap 5.9 BUN 17 Creatinine 0.9 Est GFR (CKD-EPI 2020) 67.08 Glucose 103 Calcium 9.3 Magnesium 1.6 L Total Bilirubin 1.2 H AST 30 ALT 24 Alkaline Phosphatase 70 Troponin I < 50 Total Protein 6.3 L Albumin 3.4 COVID-19 Source Nasopharynx SARS-CoV-2 (PCR) Negative Influenza Type A (PCR) Negative Influenza Type B (PCR) Negative RSV (PCR) Negative Last Vital Signs Temp 98.1 F 07/08/23 01:33 Pulse 91 H 07/08/23 02:31 Resp 27 H 07/08/23 02:31 BP 136/109 H 07/08/23 02:31 Pulse Ox 96 07/08/23 02:18 Time Spent Time spent with Patient: >75 minutes Time was spent: preparing to see the patient(eg.review tests), obtaining and/or reviewing separately otained hiistory, ordering medications,tests, procedures, referring, communicating with other health memory care director, indepentently interpreting results, counseling the patient and care coordination
[2023-07-08 05:46] LABS: Troponin I < 50 ng/L (<or=60)
[2023-07-08] MEDS: Levothyroxine 50 MCG TAB PO (06:26)
[2023-07-08 06:31] LABS: HCT 39.8 % (36.0-46.0); HGB 13.3 g/dL (11.2-15.7); MCH 29.4 pg (27.0-33.0); MCHC 33.4 % (32.0-36.0); MCV 88 fL (80-95); MPV 11.9 fL (8.0-11.0); Platelet Count 185 10^3/uL (130-400); RBC 4.52 10^6/uL (3.93-5.22); RDW-SD 41.8 fL; WBC 9.82 10^3/uL (4.4-10.8)
[2023-07-08 06:38] LABS: Anion Gap 8.5 mmol/L (3-11); BUN 17 mg/dL (7-18); CO2 30.5 mmol/L (21.0-32.0); CREATININE 0.8 mg/dL (0.55-1.02); Calcium 9.8 mg/dL (8.5-10.1); Chloride 100 mmol/L (98-107); Estimated GFR 77.27 (mL/min/1.73m2); Glucose 141 mg/dL (74-106); Magnesium 1.6 mg/dL (1.8-2.4); Potassium 3.3 mmol/L (3.5-5.1); Sodium 139 mmol/L (136-145)
[2023-07-08] MEDS: Alendronate 70 MG TAB PO (06:40)
--- NOTE | 2023-07-08 08:58 | PDOC.CMIN ---
Date of service: 07/08/23 Time of Service: 08:58 Care Management Initial Assmt Initial Assessment REASON FOR HOSPITALIZATION:: exacerbation of COPD PREVIOUS FUNCTIONAL STATUS/SOCIAL/FAMILY SUPPORTS:: Thanh lives in a single family home in [place], [place] She has 3 sons who live with her and 2 daughters. 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 She is independent at baseline and does not receive any community services. CURRENT FUNCTIONAL STATUS:: Thanh was sitting up in bed when CM met with her. She was open and friendly and willing to engage in conversation. Thanh shared that she has the best boys ever. They clean the house, do dishes, do the yardwork and also give her monthly rent. She is also very close to her daughters. Thanh informed CM that she is very independent and is only limited by her breathing. ADVANCE DIRECTIVES:: none on file Has patient been provided with info about the portal/API?: Yes Did the patient sign up for the portal?: No CODE STATUS:: Full Code INSURANCE COVERAGE / FINANCIAL ISSUES:: [employer] [facility] Medicare Replacement CURRENT HOME/COMMUNITY SERVICES/EQUIPMENT:: none PRIMARY CARE PHYSICIAN:: Loulou Hare POTENTIAL DISCHARGE NEEDS:: follow up with PCP and plan of care PATIENT/FAMILY EDUCATION NEEDS:: Review of discharge instructions, activity, limitations, follow up plan, discuss Ask Me Three . TRANSPORTATION:: via private vehicle with family PLAN:: Thanh will likely be discharged home with no new services when medically cleared. She will follow up with her community providers and plan of care and transport with family. CM will continue to support Thanh and her discharge needs. 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 seen at [facility] [place] has been stable on meds Anxiety (Chronic 09/03/14) Right carotid bruit (Acute) Osteoarthritis (Chronic) Osteoporosis (Chronic) ; left arm, started fosamax Shoulder pain, right (Acute) COVID-19 (Acute) Medical History CAD (coronary artery disease), [place] coronary artery sees cardiology at [facility] [place] Hymenoptera allergy (12/04/14) NSTEMI (non-ST elevated myocardial infarction) Pharyngoesophageal dysphagia Normal larygoscopy 07/2020 Surgical History History of ankle surgery Family History Mother Asthma Father Diabetes Grandfather No problems noted. Grandfather No problems noted. Grandmother No problems noted. Grandmother No problems noted. Social History Smoking/Tobacco Use Status: Former Tobacco Use Tobacco: How many years used: 30 Quit status: has quit before (15 years ago) Smoking risk assessment performed?: Yes Alcohol Intake: current Alcohol Intake frequency: a few times a month Drug use: Never Substance use type: does not use Household members: children and other Details: 4 WITH 3 SONS Housing: house Duration: 15-30 minutes/day Frequency: 1-2 times per week Seatbelt use: always Do you feel safe at home: Yes Do you feel safe in your relationship?: Yes
[2023-07-08] MEDS: Potassium Chloride 20 MEQ TABCR 40 MEQ PO (09:44)
[2023-07-08] MEDS: predniSONE 20 MG TAB 40 MG PO (09:44)
[2023-07-08] MEDS: Aspirin E.C. 81 MG TABEC PO (09:47)
[2023-07-08] MEDS: amLODIPine 5 MG TAB PO (09:48)
[2023-07-08] MEDS: Furosemide 20 MG TAB PO (09:48)
[2023-07-08] MEDS: Enoxaparin 40 MG/0.4 ML SYR SC (09:48)
[2023-07-08] MEDS: Citalopram 20 MG TAB 40 MG PO (09:48)
[2023-07-08] MEDS: Gabapentin 300 MG CAP PO (09:48)
[2023-07-08] MEDS: Normal Saline Flush 10 ML SYR IVP (10:19)
[2023-07-08] MEDS: MAGNESIUM SULFATE 2 GM/50 ML BAG IVPB (10:20)
[2023-07-08] MEDS: Tiotropium/Olodaterol 10 PUFF INHALER 2 PUFF IH (12:02)
--- NOTE | 2023-07-08 15:17 | W.PM.PROGNOT ---
Date of Service Date of service: 07/08/23 Time of Service: 15:17 Assessment and Plan Assessment and plan (1) Acute exacerbation of chronic obstructive pulmonary disease (COPD): Status: Acute Assessment and plan: - Patient has a known history of COPD and states her last exacerbation was over a decade ago continue prednisone 40 mg daily burst for 5 days continue scheduled DuoNebs with as needed albuterol for shortness of breath started on LABA wean oxygen as able. (2) Acute respiratory failure with hypoxia: Status: Acute Assessment and plan: - Secondary to COPD exacerbation as noted above -Currently on 2 L nasal cannula -Wean as tolerated with goal oxygen saturation between 88 and 92% (3) Hypothyroidism: Status: Chronic Assessment and plan: - Continue home levothyroxine last TSH 1.07 in february 2023 (4) Essential hypertension: Status: Chronic Assessment and plan: - Continue home Lasix and amlodipine bp stable. (5) Discharge planning issues: Status: Acute Assessment and plan: anticipate a discharge to home tomorrow with no new services if stable off oxygen discussed with DR Calix Subjective Subjective Patient reports: tolerating liquids well and tolerating a regular diet Interval history since last seen: weaned off oxygen, walking in the halls. eating and drinking well. feels weak. c/o right shoulder pain from fall previously. Exam Const General: cooperative, comfortable and no acute distress Nutritional Appearance: overweight Orientation: alert, awake and oriented x3 HENMT Head: normal to inspection, normocephalic and atraumatic Face and sinus: normal facial exam Mouth: oral mucosae normal Chest Chest: normal inspection of the chest Resp Effort & Inspection: normal respiratory effort Auscultation: diminished lung sounds Cardio Rate: regular rate Rhythm: regular rhythm GI Inspection: normal to inspection Palpation: soft Skin General skin exam: no rashes or lesions noted Neuro General: patient alert, patient awake and patient oriented x3 Extrem General: normal to inspection and full ROM Objective Last Vital Signs Temp 36.7 C 07/08/23 12:06 Pulse 79 07/08/23 12:10 Resp 18 07/08/23 12:06 BP 136/61 07/08/23 12:06 Pulse Ox 92 07/08/23 12:06 Laboratory Results - last 24 hr 07/08/23 07/08/23 07/08/23 01:45 02:10 05:22 WBC 14.00 H 9.82 RBC 4.87 4.52 Hgb 14.3 13.3 Hct 43.4 39.8 MCV 89 88 MCH 29.4 29.4 MCHC 32.9 33.4 RDW 13.1 13.0 Plt Count 177 185 MPV 11.9 H 11.9 H Immature Gran % 0.4 Neutrophils % 75.2 Lymphocytes % 13.3 Monocytes % 9.3 Eosinophils % 1.4 Basophils % 0.4 Nucleated RBC % 0.0 Absolute Neutrophils 10.53 H Absolute Lymphocytes 1.86 Absolute Monocytes 1.30 H Absolute Eosinophils 0.20 Absolute Basophils 0.06 VBG pH 7.40 VBG pCO2 58 H VBG pO2 34 VBG HCO3 36 H VBG Total CO2 32 H VBG O2 Saturation 61 VBG Base Excess 11 H Sodium 143 139 Potassium 3.4 L 3.3 L Chloride 102 100 Carbon Dioxide 35.1 H 30.5 Anion Gap 5.9 8.5 BUN 17 17 Creatinine 0.9 0.8 Est GFR (CKD-EPI 2020) 67.08 77.27 Glucose 103 141 H Calcium 9.3 9.8 Magnesium 1.6 L 1.6 L Total Bilirubin 1.2 H AST 30 ALT 24 Alkaline Phosphatase 70 Troponin I < 50 < 50 Total Protein 6.3 L Albumin 3.4 COVID-19 Source Nasopharynx SARS-CoV-2 (PCR) Negative Influenza Type A (PCR) Negative Influenza Type B (PCR) Negative RSV (PCR) Negative Time Spent with Patient Time Spent with Patient: 35-49 minutes Time was spent: preparing to see the patient(eg.review tests), obtaining and/or reviewing separately otained hiistory, ordering medications,tests, procedures, indepentently interpreting results and counseling the patient
--- NOTE | 2023-07-08 15:37 | DI.RAD_ITS ---
Exam(s) XR SHOULDER RT COMPLETE 2+V EXAM: XR SHOULDER RT COMPLETE 2+V CLINICAL HISTORY: trauma, pain. TECHNIQUE: 2D digital imaging was performed. COMPARISON: No exams were available for comparison FINDINGS: Five views. No evidence of acute fracture nor dislocation. There is thin calcification in the subacromial space parallel to the humeral head consistent with calcific tendinitis of rotator cuff. Subacromial space is not diminished. There are minimal degenerative changes in the glenohumeral and AC joints. No oss eous lesions. Bone density normal. IMPRESSION: Calcific rotator cuff tendinitis. DATA REPOSITORY: RADIATION DOSE DELIVERED:
--- NOTE | 2023-07-08 16:08 | DI.VRAD_ITS ---
PROCEDURE INFORMATION: Exam: XR Right Shoulder Exam date and time: 07/08/2023 3:18 PM Age: 72 years old Clinical indication: Other: Trauma, pain TECHNIQUE: Imaging protocol: Radiologic exam of the right shoulder. Views: 2 or more views. COMPARISON: XR PORTABLE CHEST AP 07/08/2023 2:12 AM FINDINGS: Bones/joints: Degenerative changes of the acromioclavicular joint. No fracture or subluxation. Soft tissues: Soft tissue calcifications above the humeral head. IMPRESSION: Calcific tendinitis. Dictated and Authenticated by: Buddy Antunez MD. Ordering:BRENDA Arauz MD
[2023-07-08] MEDS: Atorvastatin 40 MG TAB 80 MG PO (20:21)
[2023-07-08] MEDS: Magnesium Oxide 400 MG TAB PO (20:21)
[2023-07-08] MEDS: Mirtazapine 15 MG TAB 7.5 MG PO (21:10)
[2023-07-08] MEDS: Gabapentin 300 MG CAP 600 MG PO (21:10)
[2023-07-09] VITALS (7 sets, daily range): BP systolic 113–145; BP diastolic 63–68; PULSE 69–80; RESP 5–18; TEMP 35.6–36.1; O2SAT 85–97
[2023-07-09] MEDS: Albuterol/Ipratropium 3 ML UPD VIAL UPD ×2 (00:37→06:23)
[2023-07-09] MEDS: Levothyroxine 50 MCG TAB PO (06:17)
[2023-07-09 06:46] LABS: Abs Immature Grans 0.09 10^3/uL (0.0-0.06); Absolute Basophil Count 0.03 10^3/uL (0.0-0.2); Absolute Monocyte Count 1.03 10^3/uL (0.1-0.8); Basophils % 0.2; HCT 37.3 % (36.0-46.0); HGB 12.4 g/dL (11.2-15.7); Immature Grans % 0.5; MCH 29.5 pg (27.0-33.0); MCHC 33.2 % (32.0-36.0); MCV 89 fL (80-95); MPV 12.3 fL (8.0-11.0); Monocytes % 6.1; Neutrophils % 87.2; Platelet Count 194 10^3/uL (130-400); RDW 13.2 % (11.7-14.6); RDW-SD 42.7 fL; WBC 16.89 10^3/uL (4.4-10.8)
[2023-07-09 06:54] LABS: Absolute Lymphocyte Count 1.01 10^3/uL (1.2-3.4); Absolute Neutrophil Count 14.73 10^3/uL (1.2-6.7)
[2023-07-09 07:12] LABS: Anion Gap 3.9 mmol/L (3-11); BUN 23 mg/dL (7-18); CO2 33.1 mmol/L (21.0-32.0); Calcium 9.1 mg/dL (8.5-10.1); Chloride 107 mmol/L (98-107); Estimated GFR 59.12 (mL/min/1.73m2); Glucose 143 mg/dL (74-106); Magnesium 2.5 mg/dL (1.8-2.4); Potassium 3.7 mmol/L (3.5-5.1); Sodium 144 mmol/L (136-145)
[2023-07-09] MEDS: Tiotropium/Olodaterol 10 PUFF INHALER 2 PUFF IH (08:07)
[2023-07-09] MEDS: Enoxaparin 40 MG/0.4 ML SYR SC (08:41)
[2023-07-09] MEDS: Citalopram 20 MG TAB 40 MG PO (08:42)
[2023-07-09] MEDS: predniSONE 20 MG TAB 40 MG PO (08:42)
[2023-07-09] MEDS: Aspirin E.C. 81 MG TABEC PO (08:43)
[2023-07-09] MEDS: Gabapentin 300 MG CAP PO (08:43)
[2023-07-09] MEDS: Furosemide 20 MG TAB PO (08:43)
[2023-07-09] MEDS: amLODIPine 5 MG TAB PO (08:43)
--- NOTE | 2023-07-09 09:18 | PDOC.CMPRO ---
Date of service: 07/09/23 Time of Service: 09:18 Care Management Progress Note Progress Note Text Progress Note Text: S/O: A: Thanh is a 72 year old female admitted to [facility] on 07/08/23 for COPD exacerbation. P: Thanh will likely be discharged home with no new services when medically cleared. She will follow up with her community providers and plan of care and transport with family. will continue to support Thanh and her discharge needs.
--- NOTE | 2023-07-09 09:44 | DSE_ITS ---
Date of service: 07/09/23 Time of Service: 09:45 DS: Diagnosis Discharge Diagnosis (1) Acute exacerbation of chronic obstructive pulmonary disease (COPD): Status: Acute (2) Acute respiratory failure with hypoxia: Status: Acute (3) Hypothyroidism: Status: Chronic (4) Essential hypertension: Status: Chronic Discharge Plan Disposition Patient Disposition: Home Condition: Improving Discharge Details Reason For Visit: COPD Exacerbation Admit Date/Time: 07/08/23 03:00 Admit Provider: Conor Paul Attending Provider: Conor Paul Primary Care Provider: Loulou Hare Hospital Course Hospital Course: This is a 73-year-old female patient with a past medical history significant for tobacco abuse hypertension hypertension COPD who presented to the emergency department for evaluation of shortness of breath. She was given supplemental oxygen for O2 sats in the mid 80s. Started on IV steroids and DuoNebs. She did not stabilize enough for discharge still requiring oxygen so she was referred to the hospitalist services overnight for observation. Overnight she remained hemodynamically stable the following day she was weaned off her oxygen. She was really ambulated with physical therapy and reports feeling shaky from her steroids. Labs also significant for elevated white blood cell count which is likely due to recent high-dose steroids. Her chest x-ray showed no evidence of infiltrate. She has remained afebrile and reports that her symptoms are improving. She is eating and drinking and bowels and bladder functioning. She is safe for discharge to home with close follow-up with her primary care provider outpatient discharge discussed with Dr. Calix Home Meds and New Rx's Prescriptions: Continued mirtazapine 7.5 mg tablet 7.5 mg PO QHS Qty: 90 0RF alendronate 70 mg tablet 70 mg PO QWEEK Qty: 12 4RF lorazepam 1 mg tablet 1 mg PO HS PRN (Reason: anxiety) Qty: 28 0RF nitroglycerin [Nitrostat] 0.4 mg tablet, sublingual 0.4 mg Sublingual Q5 MIN PRN X3 PRN (Reason: Chest Pain) Qty: 30 0RF amlodipine 5 mg tablet 5 mg PO DAILY Qty: 90 3RF atorvastatin 80 mg tablet 80 mg PO QPM Qty: 90 4RF citalopram 20 mg tablet 40 mg PO DAILY Qty: 180 4RF furosemide 20 mg tablet 20 mg PO DAILY Qty: 30 11RF Rx Instructions[place] [facility] [place] 300 mg capsule 300 mg PO 1 tab am, 2tabs pm Qty: 270 4RF levothyroxine 50 mcg tablet 50 mcg PO DAILY Qty: 90 4RF epinephrine [EpiPen 2-Mikel] 0.3 mg/0.3 mL auto-injector 0.3 mg IM ONCE Qty: 1 3RF Combivent Respimat 20-100 mcg/actuation mist 1 puff Inhalation Q4H PRN (Reason: Exacerbation COPD) Qty: 4 4RF Rx Instructions: dispense 3 inhalers tiotropium-olodaterol 2.5-2.5 mcg/actuation mist 2 puff inhalation DAILY Qty: 4 3RF ipratropium-albuterol 0.5 mg-3 mg(2.5 mg base)/3 mL solution for nebulization 3 ml inhalation Q6H PRNQty: 180 0RF (DME) Space Chamber Plus 1 EACH spacer 1 ea Miscellaneous PRN Qty: 1 0RF aspirin 81 MG tablet,delayed release (DR/EC) 81 mg PO DAILY 0RF Changed prednisone 20 mg tablet 40 mg PO DAILY Qty: 10 0RF Discontinued doxycycline hyclate 100 mg capsule 100 mg PO BID Qty: 14 0RF Discharge Instructions Instructions: COPD (Chronic Obstructive Pulmonary Disease) (ED) Additional Instructions: continue steroid burst as directed. push fluids to stay well hydrated. Stand Alone Forms: Nursing Discharge Form Referrals: Loulou Hare NP [Primary Care Provider] - 07/17/23 3:00 pm Activity:: Activity as Tolerated Equipment/Supplies:: No Equipment Needed Diet:: As Tolerated Discharge Orders Discharge Orders: Discharge Order (Routine); Ordered 07/09/23 Ordered By: Regla Zhu DS: Summary Time Spent with Patient providing and/or coordinating discharge services: Less than 30 minutes Status at Discharge Functional status at discharge: independent ambulation Overall status at discharge: patient is progressing back to baseline Mental Status: mental status grossly normal Speech and Movement: speech and movement normal Mood: anxious mood Affect: normal affect Exam Const General: cooperative, comfortable and no acute distress Nutritional Appearance: overweight Orientation: alert, awake and oriented x3 HENMT Head: normal to inspection, normocephalic and atraumatic Face and sinus: normal facial exam Mouth: oral mucosae normal Chest Chest: normal inspection of the chest Resp Effort & Inspection: normal respiratory effort Auscultation: diminished lung sounds Cardio Rate: regular rate Rhythm: regular rhythm GI Inspection: normal to inspection Palpation: soft Skin General skin exam: no rashes or lesions noted Neuro General: patient alert, patient awake and patient oriented x3 Extrem General: normal to inspection and full ROM Psych Mental Status: mental status grossly normal Speech and Movement: speech and movement normal Mood: anxious mood Affect: normal affect DS: Data Vitals/I&O Vitals and I&O: Vital Signs Temperature 36.1 C L 07/09/23 07:30 Temperature Source Tympanic 07/09/23 07:30 Pulse 74 07/09/23 07:30 Pulse Rhythm Regular 07/09/23 09:38 Pulse 96 H 07/08/23 03:16 Respiratory Rate 18 07/09/23 07:30 Respiratory Effort Normal 07/09/23 09:38 Respiratory Depth Normal 07/09/23 09:38 Respiratory Pattern Normal 07/09/23 09:38 Blood Pressure 119/65 07/09/23 07:30 Blood Pressure Mean 74 07/08/23 03:16 Pulse Oximetry 88 L 07/09/23 07:30 Oxygen Delivery Method Room Air 07/09/23 07:30 Oxygen Flow Rate 0 07/09/23 07:30 Pain Level 0 07/09/23 07:30 Comment Folllowing updraft 07/09/23 01:07 Intake & Output 07/08/23 07/08/23 07/09/23 11:59 23:59 11:59 Intake Total 50 / 50 Balance 50 / 50 Weight 65.771 kg Intake: IV 50 / 50 Other: Urine Appearance Clear Clear Comment pT flushed toilet, pT also stated she voided. pT stated she voided. vo ids independently. Voiding Methods Toilet Toilet Toilet Data Completed and Pending Labs on day of discharge: Labs from last 24 hours 07/09/23 05:55 WBC 16.89 H RBC 4.20 Hgb 12.4 Hct 37.3 MCV 89 MCH 29.5 MCHC 33.2 RDW 13.2 Plt Count 194 MPV 12.3 H Immature Gran % 0.5 Neutrophils % 87.2 Lymphocytes % 6.0 Monocytes % 6.1 Eosinophils % 0.0 Basophils % 0.2 Nucleated RBC % 0.0 Absolute Neutrophils 14.73 H Absolute Lymphocytes 1.01 L Absolute Monocytes 1.03 H Absolute Eosinophils 0.00 Absolute Basophils 0.03 Sodium 144 Potassium 3.7 Chloride 107 Carbon Dioxide 33.1 H Anion Gap 3.9 BUN 23 H Creatinine 1.0 Est GFR (CKD-EPI 2020) 59.12 Glucose 143 H Calcium 9.1 Magnesium 2.5 H PFSH All Active Problems (Updated 07/08/23 @ 23:18 by Regla Zhu NP) Discharge planning issues (Acute) Acute respiratory failure with hypoxia (Acute) Acute exacerbation of chronic obstructive pulmonary disease (COPD) (Acute) COPD (chronic obstructive pulmonary disease) (Chronic) Essential hypertension (Chronic 09/03/14) Hypothyroidism (Chronic 09/03/14) Lupus (systemic lupus erythematosus) (Chronic 09/03/14) rheum [facility] [place] previously- stable on meds 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 seen at [facility] [place] - has been stable on meds Anxiety (Chronic 09/03/14) Right carotid bruit (Acute) Osteoarthritis (Chronic) Osteoporosis (Chronic) ; left arm, started fosamax Shoulder pain, right (Acute) COVID-19 (Acute) Medical History CAD (coronary artery disease), [place] coronary artery sees cardiology at [facility] [place] yearly Hymenoptera allergy (12/04/14) NSTEMI (non-ST elevated myocardial infarction) Pharyngoesophageal dysphagia Normal larygoscopy 07/2020 Surgical History History of ankle surgery Family History Mother Asthma Father Diabetes Grandfather No problems noted. Grandfather No problems noted. Grandmother No problems noted. Grandmother No problems noted. Social History Smoking/Tobacco Use Status: Former Tobacco Use Tobacco: How many years used: 30 Quit status: has quit before (15 years ago) Smoking risk assessment performed?: Yes Alcohol Intake: current Alcohol Intake frequency: a few times a month Drug use: Never Substance use type: does not use Household members: children and other Details: 4 WITH 3 SONS Housing: house Duration: 15-30 minutes/day Frequency: 1-2 times per week Seatbelt use: always Do you feel safe at home: Yes Do you feel safe in your relationship?: Yes Time Spent with Patient Time Spent with Patient: <45 minutes Time was spent: preparing to see the patient(eg.review tests), ordering medications,tests, procedures, indepentently interpreting results and counseling the patient
--- NOTE | 2023-07-09 16:40 | PDOC.CMDIS ---
Date of service: 07/09/23 Time of Service: 16:40 LACE Index Scoring Tool Questions: Length of Stay (in days): 1 Was the patient admitted via the E.D.?: Yes Comorbidities: Chronic Pulmonary Disease E.D. Visits: 1 Answers: Total Score: 7 Risk of Readmission: Low Risk Care Management Discharge Plan Reason for Hospitalization: exacerbation of COPD Discharge Plan: Thanh returned home today with no new services. She was driven home via private vehicle by family. She will follow up with her PCP and discharge plan of care. Patient/Family Education Needs: Review discharge instructions and limitations, discussion of self care needs including ask me three.
== END 2023-07-09 13:40 | disposition home or self-care (01) ==
LOC: ER 03:38 → MS 07-09 09:21
PROVIDERS: Internal Medicine; Admitting Provider Family Medicine; Emergency Provider Emergency Medicine Emergency Medical Services; PCP Nurse Practitioner Family; Visit Provider Family Medicine
DX: J44.1 Chronic obstructive pulmonary disease with (acute) exacerbation (principal); J96.01 Acute respiratory failure with hypoxia; I10 Essential (primary) hypertension; E03.9 Hypothyroidism, unspecified; E78.5 Hyperlipidemia, unspecified; F32.A Depression, unspecified; R00.0 Tachycardia, unspecified; G40.A09 Absence epileptic syndrome, not intractable, without status epilepticus; M81.0 Age-related osteoporosis without current pathological fracture; F41.9 Anxiety disorder, unspecified; M32.9 Systemic lupus erythematosus, unspecified; Z79.899 Other long term (current) drug therapy; I25.10 Atherosclerotic heart disease of native coronary artery without angina pectoris; I25.2 Old myocardial infarction; Z87.891 Personal history of nicotine dependence
CPT/HCPCS: 00123; 36415; 80048; 80053; 82805; 85027; 87637; 93005; 94618; 94640; 96365; 96366; 96372; 96374; 99285; J1650; 71045; 73030; 83735; 84484; 85025; 93010; 94664; 94760; 99223; 99233; 99238; G0378; J2930; J7512; J7620

== ENCOUNTER → 2023-07-27 00:53 | Outpatient (CLI) | payer MEDICARE, SELFPAY ==
--- NOTE | 2023-07-27 07:00 | DI.MAMMO_ITS ---
Exam(s) MAMMO SCREENING EXAM: MAMMO SCREENING CLINICAL HISTORY: screening,z12.39 TECHNIQUE: Bilateral full field digital CC and MLO mammographic images were obtained with 3D tomosyn thesis and utilizing computer aided detection (CAD). COMPARISON: Available for comparison. FINDINGS: Masses/Architectural Distortion: None seen. Microcalcifications: No suspicious pleomorphic-type are seen. Skin Thickening/Nipple Retraction: None. IMPRESSION: 1. No significant interval change with no specific features of malignancy noted. 2. Unless there is more urgent need, screening mammography is recommended, as per [employer] guidelines. BI-RADS Category 1 - Negative Breast Density - Category B - Scattered areas of fibroglandular density Breast density category C or D implies that the patient has dense breast tissue. Dense breast tissue is very common and is not abnormal but dense breast tissue can make it harder to find cancer on a ma mmogram. Also, dense breast tissue may increase their breast cancer risk. This information about the result of the mammogram report was provided to the patient to raise their awareness. Use this report when you speak with the patient about their risks for breast cancer, which includes their family hist ory. At that time, you may recommend for more screening tests (Ultrasound or MRI) as they might be us eful based on their risk. A negative radiographic report should not delay biopsy if a dominant or clinically suspicious mass is present. Up to ten percent of cancers are not identified on mammography. A negative report may reinforce clinical impression. Adenosis and dense breasts may obscure an underlying neoplasm. False positive reports average 6 to 10%. Patient will receive a letter notifying them of these results.
== END ==
PROVIDERS: PCP Nurse Practitioner Family; Visit Provider Nurse Practitioner Family
DX: Z12.31 Encounter for screening mammogram for malignant neoplasm of breast (principal)
CPT/HCPCS: 77063; 77067

== ENCOUNTER → 2023-08-07 13:50 | Outpatient (BNVA) | payer MEDICARE, SELFPAY | PROVIDERS: PCP Nurse Practitioner Family; Referring Provider Nurse Practitioner Family; Visit Provider Physician Assistant Surgical | DX: J43.1 Panlobular emphysema (principal); J96.11 Chronic respiratory failure with hypoxia | CPT/HCPCS: 99215 ==

== ENCOUNTER 2023-08-20 05:41 | Outpatient (CLI) | payer MEDICARE, SELFPAY ==
[2023-08-20] MEDS: Levalbuterol HFA 15 GM INH 4 PUFF IH (14:25)
[2023-08-20] MEDS: Inhaler, Assist Device 1 EACH MC (14:26)
--- NOTE | 2023-08-20 14:45 | W.PFT ---
Date of service: 08/20/23 Time of Service: 12:58 Pulmonary Function Test Result Indications: COPD Interpretation Spirometry: There is moderate airflow limitation. No bronchodilator response. Lung Volumes: There is air trapping Diffusion Capacity: Decreased diffusion Airway Pressure: Increased airways resistance Impression Moderate airflow obstruction with air trapping and a decreased diffusion. Clinical Correlation therefore is recommended.
== END 2023-08-20 05:42 | disposition home or self-care (01) ==
LOC: RT 05:41
PROVIDERS: PCP Nurse Practitioner Family; Visit Provider Physician Assistant Surgical
DX: J44.9 Chronic obstructive pulmonary disease, unspecified (principal)
CPT/HCPCS: 94060; 94726; 94729

== ENCOUNTER 2023-08-31 02:02 | Outpatient (CLI) | payer MEDICARE, SELFPAY ==
[2023-08-31 13:31] LABS: Abs Immature Grans 0.03 10^3/uL (0.0-0.06); Absolute Basophil Count 0.04 10^3/uL (0.0-0.2); Absolute Eosinophil Count 0.27 10^3/uL (0.0-0.7); Absolute Lymphocyte Count 1.66 10^3/uL (1.2-3.4); Absolute Monocyte Count 0.69 10^3/uL (0.1-0.8); Absolute Neutrophil Count 4.83 10^3/uL (1.2-6.7); Basophils % 0.5; Eosinophils % 3.6; HCT 43.5 % (36.0-46.0); HGB 14.3 g/dL (11.2-15.7); Immature Grans % 0.4; Lymphocytes % 22.1; MCH 29.1 pg (27.0-33.0); MCHC 32.9 % (32.0-36.0); MCV 88 fL (80-95); MPV 11.2 fL (8.0-11.0); Monocytes % 9.2; Neutrophils % 64.2; Platelet Count 206 10^3/uL (130-400); RBC 4.92 10^6/uL (3.93-5.22); RDW 12.9 % (11.7-14.6); RDW-SD 42.3 fL; WBC 7.52 10^3/uL (4.4-10.8)
[2023-08-31 14:13] LABS: Hemoglobin A1C 5.7 % (<5.7)
[2023-08-31 14:35] LABS: ALT 25 U/L (14-59); AST 22 U/L (15-37); Albumin 3.5 g/dL (3.4-5.0); Alkaline Phosphatase 71 U/L (46-116); Anion Gap 4.7 mmol/L (3-11); BUN 7 mg/dL (7-18); Bilirubin, Total 0.8 mg/dL (0.2-1.0); CO2 33.3 mmol/L (21.0-32.0); CREATININE 0.8 mg/dL (0.55-1.02); Calcium 9.1 mg/dL (8.5-10.1); Calculated LDL 54 mg/dL (<100); Chloride 105 mmol/L (98-107); Cholesterol 122 mg/dL (<200); Estimated GFR 77.27 (mL/min/1.73m2); Glucose 95 mg/dL (74-106); HDL Cholesterol 57 mg/dL (40-60); Potassium 3.9 mmol/L (3.5-5.1); Sodium 143 mmol/L (136-145); TSH (W/Ref FT4) 1.37 uIU/mL (0.36-3.74); Total Protein 6.9 g/dL (6.4-8.2); Triglyceride 59 mg/dL (<150)
== END 2023-08-31 02:03 | disposition home or self-care (01) ==
LOC: LBO 02:02
PROVIDERS: PCP Nurse Practitioner Family; Visit Provider Nurse Practitioner Family
DX: E03.9 Hypothyroidism, unspecified (principal); F41.9 Anxiety disorder, unspecified; I10 Essential (primary) hypertension; J44.9 Chronic obstructive pulmonary disease, unspecified; M32.9 Systemic lupus erythematosus, unspecified; M81.0 Age-related osteoporosis without current pathological fracture; J43.1 Panlobular emphysema; U07.1 COVID-19; R73.09 Other abnormal glucose
CPT/HCPCS: 36415; 80053; 80061; 83036; 84443; 85025

== ENCOUNTER → 2023-11-14 12:46 | Outpatient (BNVA) | payer MEDICARE, SELFPAY | PROVIDERS: PCP Nurse Practitioner Family; Referring Provider Nurse Practitioner Family; Visit Provider Physician Assistant Surgical | DX: J43.1 Panlobular emphysema (principal); J96.11 Chronic respiratory failure with hypoxia | CPT/HCPCS: 99214 ==

== ENCOUNTER 2023-11-18 17:09 | Emergency (ER) | payer MEDICARE, SELFPAY ==
[2023-11-18] VITALS (16 sets, daily range): BP systolic 97–153; BP diastolic 29–84; PULSE 67–76; RESP 13–24; TEMP 36.7; O2SAT 96–97
--- NOTE | 2023-11-18 17:10 | ED.GENADUL_ITS ---
Discharge Plan Disposition Patient Disposition: Home Discharge Details Clinical Impression: Hx of falling, Mild TBI (traumatic brain injury) Primary Care Provider: Loulou Hare ED Provider: John Aceves [place] Meds and New Rx's Prescriptions: Continued amlodipine 5 mg tablet 5 mg PO DAILY Qty: 90 3RF atorvastatin 80 mg tablet 80 mg PO QPM Qty: 90 4RF citalopram 20 mg tablet 40 mg PO DAILY Qty: 180 4RF furosemide 20 mg tablet 20 mg PO DAILY Qty: 90 3RF Rx Instructions: [facility] [place] [facility] [place] gabapentin 300 mg capsule 300 mg PO 1 tab am, 2tabs pm Qty: 270 4RF levothyroxine 50 mcg tablet 50 mcg PO DAILY Qty: 90 4RF potassium chloride 20 mEq tablet,ER particles/crystals 20 meq PO DAILY Qty: 90 3RF alendronate 70 mg tablet 70 mg PO QWEEK Qty: 12 4RF nitroglycerin [Nitrostat] 0.4 mg tablet, sublingual 0.4 mg Sublingual Q5 MIN PRN X3 PRN (Reason: Chest Pain) Qty: 30 0RF epinephrine [EpiPen 2-Mikel] 0.3 mg/0.3 mL auto-injector 0.3 mg IM ONCE Qty: 1 3RF Combivent Respimat 20-100 mcg/actuation mist 1 puff Inhalation Q4H PRN (Reason: Exacerbation COPD) Qty: 4 4RF Rx Instructions: dispense 3 inhalers tiotropium-olodaterol 2.5-2.5 mcg/actuation mist 2 puff inhalation DAILY Qty: 4 3RF ipratropium-albuterol 0.5 mg-3 mg(2.5 mg base)/3 mL solution for nebulization 3 ml inhalation Q6H PRNQty: 180 0RF (DME) Space Chamber Plus 1 EACH spacer 1 ea Miscellaneous PRN Qty: 1 0RF aspirin 81 MG tablet,delayed release (DR/EC) 81 mg PO DAILY 0RF Discontinued lorazepam 1 mg tablet 1 mg PO HS PRN (Reason: anxiety) Qty: 28 0RF Discharge Instructions Instructions: Head Injury (ED) Additional Instructions: You were seen in the emergency department for your fall. Your CAT scan showed no sign of any bleeding in your head. Your chest x-ray showed no sign of any fractured ribs. As we discussed you likely had a mild traumatic brain injury??a concussion. Please take acetaminophen as needed for pain. For your pain please take medications as follows: 1. Take acetaminophen (Tylenol), 1,000 mg (two 500 mg tabs) every 6 hours Please return to the emergency department if you develop vomiting that does not stop if you develop shortness of breath or if you develop any fevers. Please otherwise follow-up with your primary care provider next week. HPI General Date/Time Provider Initiated Documentation: 11/18/23 17:09 . HPI Narrative: MDM Primary survey intact. Reassuring shock index. Secondary survey patient has signs of left temporal bruising based on her age we will obtain CT head. No midline cervical spinal tenderness to suggest benefit from CT cervical spine based on Nexus criteria. Patient does have left-sided chest wall tenderness. No flail segments. No hypoxia. Patient is low risk mechanism of injury my suspicion for any thoracic abdominal injury is low. Will obtain screening x-ray and consider advanced imaging if abnormal. Given no nausea nor vomiting I am not suspicious for any acute electrolyte abnormalities I did not feel that the patient required assessment of her labs. Patient has no prolonged expiratory phase nor any wheezes so my suspicion for COPD exacerbation is low. No pain or proportion to suggest necrotizing soft tissue infection. No chest pain nor shortness of breath beyond baseline to suggest increased risk for PE. Patient has been tolerating p.o. No upper or lower extremity tenderness to suggest benefit from plain films. Given no visual changes and not concern for giant cell arteritis. No recent chiropractic manipulations to suggest increased risk for cervical arterial dissection. Per Nexus criteria, cervical CT not obtained. The patient had no c-spine midline tenderness, no evidence of intoxication, was AAOx3, had no focal neurological deficits, and no painful distracting injuries. 7 PM X-ray negative for any acute osseous abnormalities and chest. CT head negative for any acute bleed. Patient, her son and I discussed that she likely had a mild traumatic brain injury??a concussion. I advised scheduled acetaminophen. I advised ED return for vomiting that did not stop. Otherwise advised primary care follow-up as needed. Patient understood her return indications and was discharged with empiric trial of expectant outpatient management. Chronic conditions affecting the care of the patient: COPD History obtained from an outside historian: Patient's son External record review: [facility] [place] EMR [Diagnostic interpretations performed by me: Per my independent interpretation chest x-ray shows:No acute cardiopulmonary process ECG Normal sinus rhythm at a rate of 71. Narrow complex. DC within normal limits. QTc appears within normal limits. Normal axis. Compared to prior dated last year no acute injury pattern. No ST segment abnormalities. T wave flattening in aVL. Similar to prior. Medications: Patient declined acetaminophen Social determinants of health affecting disposition: N/A Management discussed with: N/A Treatment/interventions considered: N/A Response to therapies provided: N/A HPI This is a 73-year-old female with advanced COPD not on home oxygen arriving to the emergency department via private vehicle with her son in the setting of a fall. Patient reports that she did not have much to eat or drink last night. She reports that she had been out for the day and subsequently came home and took 1 mg of lorazepam. She fell asleep at during the night she fell out of bed and struck the left side of her head. She reportedly lost conscious notes. She denies nausea vomiting fevers and cough. Patient has had no visual changes. She has had a mild headache subsequently. No recent chiropractic manipulation. No recent generator exposure. She denies dysuria and frequency. She has mild pain on her left ribs. She reports that her shortness of breath is baseline. Exam General: Chronically ill-appearing in no acute distress speaking in complete sentences. Head: Left side of protestant with mild ecchymotic area approximately 3 x 3 cm. Normocephalic. Eye:[Pupils equal, round reactive to light.] Extraocular eye movements intact. No conjunctival injection. No scleral icterus. Ear, nose, mouth, throat: Grossly normal inspection. Normal voice, handling secretions normally. No hemotympanum bilaterally. No septal hematoma. Neck: Trachea midline. Cardiovascular: Well-perfused distal extremities. Regular rate and rhythm. Chest wall: No ecchymosis nor flail segments. Left-sided chest wall tenderness. Respiratory: Nonlabored respiration. Clear lungs bilaterally. No wheezes. Gastrointestinal: Nondistended abdomen. Soft nontender. Musculoskeletal: No significant lower extremity edema. Moving all 4 extremities spontaneously. Skin: Normal for age and race, grossly normal temperature and turgor. No acute rash. Neurologic: Alert and appropriate, no apparent acute deficits. GCS 15. Psychiatric: Mood and manner are appropriate. Grooming and personal hygiene are appropriate. Related Data Home Medications Medication Instructions Recorded Confirmed inhalational spacing device (Space ##1 01/11/18 11/14/23 Chamber Plus) aspirin 81 mg tablet,delayed 81 mg PO DAILY 03/01/18 11/14/23 release nitroglycerin 0.4 mg sublingual 0.4 mg sublingual Q5 MIN PRN X3 08/30/21 11/14/23 tablet (Nitrostat) PRN Chest Pain #30 tabs epinephrine 0.3 mg/0.3 mL 0.3 mg (0.3 mL) IM ONCE #1 ea 12/11/22 11/14/23 injection, auto-injector (EpiPen 2-Mikel) alendronate 70 mg tablet 70 mg PO QWEEK #12 tabs 04/07/23 11/14/23 ipratropium 0.5 mg-albuterol 3 mg 3 ml inhalation Q6H PRN #180 mL 04/22/23 11/14/23 (2.5 mg base)/3 mL nebulization soln amlodipine 5 mg tablet 5 mg PO DAILY #90 tabs 07/26/23 11/14/23 atorvastatin 80 mg tablet 80 mg PO QPM #90 tabs 07/26/23 11/14/23 citalopram 20 mg tablet 40 mg (2 x 20 mg) PO DAILY #180 07/26/23 11/14/23 tab-caps furosemide 20 mg tablet 20 mg PO DAILY #90 tabs 07/26/23 11/14/23 gabapentin 300 mg capsule 300 mg PO 1 tab am, 2tabs pm #270 07/26/23 11/14/23 tabs levothyroxine 50 mcg tablet 50 mcg PO DAILY #90 tab-caps 07/26/23 11/14/23 potassium chloride 20 mEq 20 meq PO DAILY #90 tabs 07/26/23 11/14/23 tablet,extended release(part/cryst) ipratropium 20 mcg-albuterol 100 1 puff inhalation Q4H PRN 09/13/23 11/14/23 mcg/actuation mist for inhalation Exacerbation COPD #4 grams (Combivent Respimat) tiotropium 2.5 mcg-olodaterol 2.5 2 puff inhalation DAILY #4 grams 10/22/23 11/14/23 mcg/actuation mist for inhalation Previous Rx's Medication Instructions Recorded inhalational spacing device (Space ##1 01/11/18 Chamber Plus) aspirin 81 mg tablet,delayed 81 mg PO DAILY 03/01/18 release nitroglycerin 0.4 mg sublingual 0.4 mg sublingual Q5 MIN PRN X3 08/30/21 tablet (Nitrostat) PRN Chest Pain #30 tabs epinephrine 0.3 mg/0.3 mL 0.3 mg (0.3 mL) IM ONCE #1 ea 12/11/22 injection, auto-injector (EpiPen 2-Mikel) alendronate 70 mg tablet 70 mg PO QWEEK #12 tabs 04/07/23 ipratropium 0.5 mg-albuterol 3 mg 3 ml inhalation Q6H PRN #180 mL 04/22/23 (2.5 mg base)/3 mL nebulization soln amlodipine 5 mg tablet 5 mg PO DAILY #90 tabs 07/26/23 atorvastatin 80 mg tablet 80 mg PO QPM #90 tabs 07/26/23 citalopram 20 mg tablet 40 mg (2 x 20 mg) PO DAILY #180 07/26/23 tab-caps furosemide 20 mg tablet 20 mg PO DAILY #90 tabs 07/26/23 gabapentin 300 mg capsule 300 mg PO 1 tab am, 2tabs pm #270 07/26/23 tabs levothyroxine 50 mcg tablet 50 mcg PO DAILY #90 tab-caps 07/26/23 potassium chloride 20 mEq 20 meq PO DAILY #90 tabs 07/26/23 tablet,extended release(part/cryst) ipratropium 20 mcg-albuterol 100 1 puff inhalation Q4H PRN 09/13/23 mcg/actuation mist for inhalation Exacerbation COPD #4 grams (Combivent Respimat) tiotropium 2.5 mcg-olodaterol 2.5 2 puff inhalation DAILY #4 grams 10/22/23 mcg/actuation mist for inhalation Allergies Allergy/AdvReac Type Severity Reaction Status Date / Time bee venom protein (honey bee) Allergy Severe Anaphylaxsi Verified 11/18/23 17:16 s tetanus toxoid, adsorbed Allergy Severe swelling,fe Verified 11/18/23 17:16 geneva benzonatate Allergy Mild rash Verified 11/18/23 17:16 [From Tessalon Perles] sulfamethoxazole Allergy Itching Verified 11/18/23 17:16 amoxicillin trihydrate AdvReac Intermediate Diarrhea - Verified 11/18/23 17:16 [From Augmentin] Severe potassium clavulanate AdvReac Intermediate Diarrhea - Verified 11/18/23 17:16 [From Augmentin] Severe insects Allergy Severe Anaphylaxsi Uncoded 11/18/23 17:16 s General HOLLIS: 2 Medical Decision Making Quality:SDOH Health Related Social Needs: No Data to Display PFSH All Active Problems (Updated 11/18/23 @ 18:59 by John Aceves MD) Mild TBI (traumatic brain injury) (Acute) Hx of falling (Acute) Chronic hypoxic respiratory failure (Acute) Acute respiratory failure with hypoxia (Acute) Acute exacerbation of chronic obstructive pulmonary disease (COPD) (Acute) COPD (chronic obstructive pulmonary disease) (Chronic) Essential hypertension (Chronic 09/03/14) Hypothyroidism (Chronic 09/03/14) Lupus (systemic lupus erythematosus) (Chronic 09/03/14) rheum [facility] [place] previously- stable on meds 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 seen at [facility] [place] - has been stable on meds Anxiety (Chronic 09/03/14) Right carotid bruit (Acute) Osteoarthritis (Chronic) Osteoporosis (Chronic) ; left arm, started fosamax Shoulder pain, right (Acute) COVID-19 (Acute) Medical History CAD (coronary artery disease), [place] coronary artery sees cardiology at [facility] [place] yearly Hymenoptera allergy (12/04/14) NSTEMI (non-ST elevated myocardial infarction) Pharyngoesophageal dysphagia Normal larygoscopy 07/2020 Surgical History History of ankle surgery Family History Mother Asthma Father Diabetes Grandfather No problems noted. Grandfather No problems noted. Grandmother No problems noted. Grandmother No problems noted. Social History (Updated 07/28/23 @ 12:17 by Mary Ann Adams) Smoking/Tobacco Use Status: Former Tobacco Use Tobacco: How many years used: 30 Second Hand Exposure: Yes Smoking risk assessment performed?: Yes Alcohol Intake: never Drug use: Never Substance use type: does not use Household members: children and other Details: 4 WITH 3 SONS Housing: house Duration: 15-30 minutes/day Frequency: 1-2 times per week Seatbelt use: always Do you feel safe at home: Yes Do you feel safe in your relationship?: Yes
--- NOTE | 2023-11-18 17:15 | RT.EKG_ITS ---
APPROVED REPORT Exam: Resting ECG Reason for Exam: SOB Patient Location: E HR:71 bpm ECG Measurements Heart Rate 71 AXIS OK 128 P 77 QRSd 72 QRS 51 QT [id number] T 57 QTc 0 Conclusion Sinus rhythm...normal P axis, V-rate 60- 99 Normal sinus rhythm at a rate of 71. Narrow complex. OK within normal limits. QTc appears within n ormal limits. Normal axis. Compared to prior dated last year no acute injury pattern. No ST segmen t abnormalities. T wave flattening in aVL. Similar to prior.
--- NOTE | 2023-11-18 17:30 | DI.CT_ITS ---
Exam(s) CT HEAD WO EXAM: CT HEAD WO CLINICAL HISTORY: Left-sided head strike. TECHNIQUE: Imaging Protocol: Axial computed tomography images with coronal and sagittal reformatted images were created and reviewed COMPARISON: CT CT HEAD WO from 02/03/2022 FINDINGS: Ventricles and Extra axial spaces: Normal in size and morphology for the patient's age. Hemorrhage: None. Cerebral parenchyma: There are areas of decreased attenuation in the white matter most consistent wit h chronic microvascular ischemic disease. No acute territorial infarct. No mass effect. Midline shift: None. Brainstem/Cerebellum: Normal. Calvarium: Normal. Visualized Paranasal sinuses/Mastoids: Clear. Soft Tissues: Unremarkable. IMPRESSION: No acute intracranial process. RADIATION DOSE DELIVERED: 662.55mGy.cm Total DLP DATA REPOSITORY: All CT scans at this facility are submitted to the National Radiology Data Registry (NRDR) Dose Index Registry (DIR) with the [employer] (A[employer]). RADIATION OPTIMIZATION: All CT scans at this facility use at least one of these dose optimization te chniques: automated exposure control; mA and/or kV adjustment per patient size (includes targeted exa ms where dose is matched to clinical indication); or iterative reconstruction.
--- NOTE | 2023-11-18 17:31 | DI.RAD_ITS ---
Exam(s) XR CHEST 2V PA LATERAL EXAM: XR CHEST 2V PA LATERAL CLINICAL HISTORY: History of falling TECHNIQUE: 2D digital imaging was performed of the chest. Two images were obtained. PA and lateral views were obtained. COMPARISON: CR,XR XR PORTABLE CHEST AP from 07/08/2023 FINDINGS: MEDIASTINUM: Normal. HEART: Normal. PULMONARY VASCULATURE: Normal. LUNGS: No focal consolidating infiltrates. PLEURAL SPACE: No pleural effusion or pneumothorax. BONE:Within normal limits for the patient's age. OTHER FINDINGS:Normal. IMPRESSION: No acute pulmonary findings. DATA REPOSITORY: RADIATION DOSE DELIVERED:
--- NOTE | 2023-11-18 18:47 | DI.VRAD_ITS ---
PROCEDURE INFORMATION: Exam: CT Head Without Contrast Exam date and time: 11/18/2023 5:52 PM Age: 73 years old Clinical indication: Injury or trauma; Fall; Other: Left-sided head strike TECHNIQUE: Imaging protocol: Computed tomography of the head without contrast. COMPARISON: CT HEAD WO 02/03/2022 8:16 PM FINDINGS: Brain: No acute intracranial hemorrhage, mass-effect, midline shift, or extra-axial collection is seen. The miranda white matter differentiation appears preserved. There is patchy white matter hypoattenuation, nonspecific but commonly seen as a chronic sequela of small vessel ischemic disease. There is mild symmetric parenchymal volume loss. Cerebral ventricles: The ventricular system and basilar cisterns appear prominent but appropriate in size and configuration given the degree of parenchymal volume loss. Paranasal sinuses: The visualized paranasal sinuses appear well-aerated. Mastoid air cells: The mastoid air cells appear well-aerated. Auditory system: The middle ear cavities appear clear. Orbital cavities: The globes and intraorbital structures appear grossly intact. Bones/joints: The bony calvarium appears intact. No depressed skull fracture is seen. Soft tissues: No gross focal scalp hematoma is seen. IMPRESSION: No acute intracranial hemorrhage or depressed skull fracture. Dictated and Authenticated by: Marlon Etienne MD. Ordering:GAUDENCIO Lopez MD
--- NOTE | 2023-11-18 18:50 | DI.VRAD_ITS ---
PROCEDURE INFORMATION: Exam: XR Chest Exam date and time: 11/18/2023 5:56 PM Age: 73 years old Clinical indication: Injury or trauma; Fall; Blunt trauma (contusions or hematomas) TECHNIQUE: Imaging protocol: Radiologic exam of the chest. Views: 2 views. COMPARISON: XR PORTABLE CHEST AP 07/08/2023 2:12 AM FINDINGS: Lungs: No pulmonary consolidation is seen. There is pulmonary hyperinflation suspicious for COPD/emphysema. Pleural spaces: No pleural effusion or pneumothorax is demonstrated. Heart/Mediastinum: Cardiac silhouette appears normal in size. Vasculature: There is atherosclerotic calcification at the apex of the aortic arch. Bones/joints: There are osteophytes along the thoracic spinal margin and thoracic kyphosis. The visualized bony structures appear grossly intact, as seen, but are not well evaluated IMPRESSION: 1. No active disease is seen in the chest. 2. Suspected underlying COPD/emphysema. Dictated and Authenticated by: Marlon Etienne MD. Ordering:GAUDENCIO Lopez MD
== END 2023-11-18 19:31 | disposition home or self-care (01) ==
LOC: ER 19:30
PROVIDERS: Emergency Provider Emergency Medicine; PCP Nurse Practitioner Family
DX: S06.891A Other specified intracranial injury with loss of consciousness of 30 minutes or less, initial encounter (principal); J44.9 Chronic obstructive pulmonary disease, unspecified; I10 Essential (primary) hypertension; I25.10 Atherosclerotic heart disease of native coronary artery without angina pectoris; M32.9 Systemic lupus erythematosus, unspecified; I25.2 Old myocardial infarction; Z79.82 Long term (current) use of aspirin; Z87.891 Personal history of nicotine dependence; Z91.81 History of falling
CPT/HCPCS: 93005; 99284; 70450; 71046; 93010

== ENCOUNTER 2023-12-21 19:43 | Emergency (ER) | payer MEDICARE, SELFPAY ==
[2023-12-21] VITALS (12 sets, daily range): BP systolic 134–168; BP diastolic 50–93; PULSE 78–98; RESP 11–28; TEMP 36.8–38.1; O2SAT 76–100
--- NOTE | 2023-12-21 19:45 | RT.EKG_ITS ---
APPROVED REPORT Exam: Resting ECG Reason for Exam: short of breath Patient Location: E HR:84 bpm ECG Measurements Heart Rate 84 AXIS OH 126 P 80 QRSd 76 QRS 59 QT 331 T -75 QTc 392 Conclusion Sinus rhythm...normal P axis, V-rate 60- 99 sinus rhtyhm, normal axis, normal intervals, consider st depression V3 V4
--- NOTE | 2023-12-21 20:00 | DI.RAD_ITS ---
Exam(s) XR PORTABLE CHEST AP EXAM: XR PORTABLE CHEST AP CLINICAL HISTORY: SOB, Hx COPD. TECHNIQUE: 2D digital imaging was performed. COMPARISON: CR,XR XR CHEST 2V PA LATERAL from 11/18/2023 FINDINGS: Single AP portable view. Heart size is upper normal. The mediastinum is not widened. Bilateral hyperinflation is again noted. No new confluent infiltrates nor pleural effusions. No pul monary edema. No pneumothorax IMPRESSION: No acute pulmonary findings on this single AP portable view of the chest. DATA REPOSITORY: RADIATION DOSE DELIVERED:
--- NOTE | 2023-12-21 20:03 | ED.GENADUL_ITS ---
Discharge Plan Disposition Patient Disposition: Home Condition: Stable Discharge Details Clinical Impression: COPD exacerbation Primary Care Provider: Loulou Hare ED Provider: Leonie Hicks Home Meds and New Rx's Prescriptions: New prednisone 20 mg tablet 60 mg PO DAILY 9 Days Qty: 17 0RF Rx Instructions: Take 3 tabs daily x 3 days, Take 2 tabs daily x 3 days, Take one tab daily x 3 days. doxycycline hyclate 100 mg tablet 100 mg PO BID 10 Days Qty: 20 0RF Continued amlodipine 5 mg tablet 5 mg PO DAILY Qty: 90 3RF atorvastatin 80 mg tablet 80 mg PO QPM Qty: 90 4RF citalopram 20 mg tablet 40 mg PO DAILY Qty: 180 4RF furosemide 20 mg tablet 20 mg PO DAILY Qty: 90 3RF Rx Instructions: [facility] gabapentin 300 mg capsule 300 mg PO 1 tab am, 2tabs pm Qty: 270 4RF levothyroxine 50 mcg tablet 50 mcg PO DAILY Qty: 90 4RF potassium chloride 20 mEq tablet,ER particles/crystals 20 meq PO DAILY Qty: 90 3RF alendronate 70 mg tablet 70 mg PO QWEEK Qty: 12 4RF nitroglycerin [Nitrostat] 0.4 mg tablet, sublingual 0.4 mg Sublingual Q5 MIN PRN X3 PRN (Reason: Chest Pain) Qty: 30 0RF epinephrine [EpiPen 2-Mikel] 0.3 mg/0.3 mL auto-injector 0.3 mg IM ONCE Qty: 1 3RF Combivent Respimat 20-100 mcg/actuation mist 1 puff Inhalation Q4H PRN (Reason: Exacerbation COPD) Qty: 4 4RF Rx Instructions: dispense 3 inhalers tiotropium-olodaterol 2.5-2.5 mcg/actuation mist 2 puff inhalation DAILY Qty: 4 3RF ipratropium-albuterol 0.5 mg-3 mg(2.5 mg base)/3 mL solution for nebulization 3 ml inhalation Q6H PRNQty: 180 0RF (DME) Space Chamber Plus 1 EACH spacer 1 ea Miscellaneous PRN Qty: 1 0RF aspirin 81 MG tablet,delayed release (DR/EC) 81 mg PO DAILY 0RF Discharge Instructions Instructions: COPD (Chronic Obstructive Pulmonary Disease) (ED) Additional Instructions: Please wear your oxygen 24/7. No evidence of pneumonia however you do have an elevated white blood cell count and with that you are fever I will treat you empirically for possible beginning pneumonia. Please take the antibiotic twice daily with yogurt or probiotic as directed. Use the prednisone taper as prescribed. Please follow-up with your primary care provider in the next 3 to 5 days to discuss oxygenation. Use your inhalers as previously prescribed. Follow up with primary care provider in 3-5 days. Return to ED sooner if any worsening or concerns. Referrals: Loulou Hare NP [Primary Care Provider] - 3 days HPI General Mode of arrival: ambulatory . Date/Time Provider Initiated Documentation: 12/21/23 19:53 . Limitations to Documentation: no limitations . Information obtained by: patient, family, RN notes reviewed and old records reviewed . HPI Narrative: 73-year-old female with a past medical history of COPD, CAD, CHF and history of petit mall seizures, NSTEMI, presents to the ER with chief complaint of shortness of breath for the last couple of days. She is 76% on room air has pursed lip breathing and tachypnea. She is alert and oriented x 4. Placed on 4 L nasal cannula here in the department. She is now satting 97%. Reports of a fever 101 last night. She does have a fever of 38.1 upon arrival. Patient also states that last night while she was on the toilet she was too weak to get up and became very dizzy. She was afraid she was going to lose consciousness. She does report some syncopal episodes the last 1 month ago. Denies any chest pain upon arrival. No edema noted on lower extremities. Related Data Home Medications Medication Instructions Recorded Confirmed inhalational spacing device (Space ##1 01/11/18 12/11/23 Chamber Plus) aspirin 81 mg tablet,delayed 81 mg PO DAILY 03/01/18 12/11/23 release nitroglycerin 0.4 mg sublingual 0.4 mg sublingual Q5 MIN PRN X3 08/30/21 12/11/23 tablet (Nitrostat) PRN Chest Pain #30 tabs epinephrine 0.3 mg/0.3 mL 0.3 mg (0.3 mL) IM ONCE #1 ea 12/11/22 12/11/23 injection, auto-injector (EpiPen 2-Mikel) alendronate 70 mg tablet 70 mg PO QWEEK #12 tabs 04/07/23 12/11/23 ipratropium 0.5 mg-albuterol 3 mg 3 ml inhalation Q6H PRN #180 mL 04/22/23 12/11/23 (2.5 mg base)/3 mL nebulization soln amlodipine 5 mg tablet 5 mg PO DAILY #90 tabs 07/26/23 12/11/23 atorvastatin 80 mg tablet 80 mg PO QPM #90 tabs 07/26/23 12/11/23 citalopram 20 mg tablet 40 mg (2 x 20 mg) PO DAILY #180 07/26/23 12/11/23 tab-caps furosemide 20 mg tablet 20 mg PO DAILY #90 tabs 07/26/23 12/11/23 gabapentin 300 mg capsule 300 mg PO 1 tab am, 2tabs pm #270 07/26/23 12/11/23 tabs levothyroxine 50 mcg tablet 50 mcg PO DAILY #90 tab-caps 07/26/23 12/11/23 potassium chloride 20 mEq 20 meq PO DAILY #90 tabs 07/26/23 12/11/23 tablet,extended release(part/cryst) ipratropium 20 mcg-albuterol 100 1 puff inhalation Q4H PRN 09/13/23 12/11/23 mcg/actuation mist for inhalation Exacerbation COPD #4 grams (Combivent Respimat) tiotropium 2.5 mcg-olodaterol 2.5 2 puff inhalation DAILY #4 grams 10/22/23 12/11/23 mcg/actuation mist for inhalation doxycycline hyclate 100 mg tablet 100 mg PO BID 10 days #20 tabs 12/21/23 prednisone 20 mg tablet 60 mg (3 x 20 mg) PO DAILY Lumbago 12/21/23 9 days #17 tabs Previous Rx's Medication Instructions Recorded inhalational spacing device (Space ##1 01/11/18 Chamber Plus) aspirin 81 mg tablet,delayed 81 mg PO DAILY 03/01/18 release nitroglycerin 0.4 mg sublingual 0.4 mg sublingual Q5 MIN PRN X3 08/30/21 tablet (Nitrostat) PRN Chest Pain #30 tabs epinephrine 0.3 mg/0.3 mL 0.3 mg (0.3 mL) IM ONCE #1 ea 12/11/22 injection, auto-injector (EpiPen 2-Mikel) alendronate 70 mg tablet 70 mg PO QWEEK #12 tabs 04/07/23 ipratropium 0.5 mg-albuterol 3 mg 3 ml inhalation Q6H PRN #180 mL 04/22/23 (2.5 mg base)/3 mL nebulization soln amlodipine 5 mg tablet 5 mg PO DAILY #90 tabs 07/26/23 atorvastatin 80 mg tablet 80 mg PO QPM #90 tabs 07/26/23 citalopram 20 mg tablet 40 mg (2 x 20 mg) PO DAILY #180 07/26/23 tab-caps furosemide 20 mg tablet 20 mg PO DAILY #90 tabs 07/26/23 gabapentin 300 mg capsule 300 mg PO 1 tab am, 2tabs pm #270 07/26/23 tabs levothyroxine 50 mcg tablet 50 mcg PO DAILY #90 tab-caps 07/26/23 potassium chloride 20 mEq 20 meq PO DAILY #90 tabs 07/26/23 tablet,extended release(part/cryst) ipratropium 20 mcg-albuterol 100 1 puff inhalation Q4H PRN 09/13/23 mcg/actuation mist for inhalation Exacerbation COPD #4 grams (Combivent Respimat) tiotropium 2.5 mcg-olodaterol 2.5 2 puff inhalation DAILY #4 grams 10/22/23 mcg/actuation mist for inhalation doxycycline hyclate 100 mg tablet 100 mg PO BID 10 days #20 tabs 12/21/23 prednisone 20 mg tablet 60 mg (3 x 20 mg) PO DAILY Lumbago 12/21/23 9 days #17 tabs Allergies Allergy/AdvReac Type Severity Reaction Status Date / Time bee venom protein (honey bee) Allergy Severe Anaphylaxsi Verified 12/21/23 19:55 s tetanus toxoid, adsorbed Allergy Severe swelling,fe Verified 12/21/23 19:55 geneva benzonatate Allergy Mild rash Verified 12/21/23 19:55 [From Tesmayo Kern] sulfamethoxazole Allergy Itching Verified 12/21/23 19:55 amoxicillin trihydrate AdvReac Intermediate Diarrhea - Verified 12/21/23 19:55 [From Augmentin] Severe potassium clavulanate AdvReac Intermediate Diarrhea - Verified 12/21/23 19:55 [From Augmentin] Severe insects Allergy Severe Anaphylaxsi Uncoded 12/21/23 19:55 s General Stated Complaint: SOB HOLLIS: 2 Review of Systems All systems reviewed & are unremarkable except as noted in HPI and below Constitutional Constitutional: Reports as per HPI and Reports fever(s) Cardiovascular Cardiovascular: Reports syncope and Reports dyspnea Respiratory Respiratory: Reports as per HPI, Reports cough, Reports dyspnea and Reports wheezing Neurologic Neurologic: Reports syncope Allergic/Immunologic Allergic/Immunologic: Reports wheezing Exam Narrative Exam Narrative: Constitutional: Alert and oriented x3. Appears stated age. Normal body habitus. Patient is tachypneic, pursed lip breathing, O2 sat 76% on room air after walking from the car. Head: Normocephalic, no trauma. Eyes: Pupils PERRL, Red reflex noted, EOM's intact. Eyelids symmetrical without lesions, discharge, or swelling. ENT: Bilateral TM's WNL, External ear normal to inspection, no mastoid TTP, swelling, or erythema, Nasal turbinates WNL, no nasal discharge. Normal dentition, Posterior pharynx WNL, no exudate. Chest: RRR, Normal S1, S2, distal pulses intact. Resp: Respiratory expiratory wheezes bilaterally, is tight diminished in the bases. Abdomen: Soft, non-distended, Normoactive bowel sounds all 4 quads. Musculoskeletal: Normal gait, Moves all 4 extremities without difficulty. Skin: No suspicious rashes or lesions. Capillary refill less than 2 sec. Neurologic: Cranial nerves II-XII intact. Alert and oriented x 3. Motor: No deficits noted. Sensory: Intact bilaterally all 4 extremities. Hematologic/Lymphatic: No ecchymosis, no lymphadenopathy. Course Vital Signs Vital signs: Vital Signs Temperature 38.1 C H 12/21/23 19:52 Pulse 87 12/21/23 19:52 Respiratory Rate 20 12/21/23 19:52 Pulse Oximetry 76 L 12/21/23 19:52 Temperature 38.1 C H 12/21/23 19:52 Temperature Source Tympanic 12/21/23 19:52 Pulse 87 12/21/23 19:52 Respiratory Rate 20 12/21/23 19:52 Blood Pressure Position Sitting 12/21/23 19:52 Pulse Oximetry 76 L 12/21/23 19:52 Oxygen Delivery Method Room Air 12/21/23 19:52 Oxygen Flow Rate 0 12/21/23 19:52 Pain Level 0 12/21/23 19:52 Medical Decision Making 73-year-old female with a past medical history of COPD, CAD, CHF and history of petit mall seizures, NSTEMI, presents to the ER with chief complaint of shortness of breath for the last couple of days. She is 76% on room air has pursed lip breathing and tachypnea. She is alert and oriented x 4. Placed on 4 L nasal cannula here in the department. She is now satting 97%. Reports of a fever 101 last night. She does have a fever of 38.1 upon arrival. Patient also states that last night while she was on the toilet she was too weak to get up and became very dizzy. She was afraid she was going to lose consciousness. She does report some syncopal episodes the last 1 month ago. Denies any chest pain upon arrival. No edema noted on lower extremities. workup ordered including CBC CMP, blood cultures x 2, VBG, lactate, EKG troponin, methylprednisolone, DuoNeb. Oxygen down to 2 L nasal cannula. 2123: Patient road tested on 1 L , sat 92% with ambulatory No evidence of UTI, no pneumonia. Chest x-ray is consistent with COPD. At this time I am leaning to discharge patient with instructions to wear her oxygen continuously until follow-up with PCP or test engineering manager if possible. Awaiting flu COVID RSV. White blood cell count is 15.06 with a left shift, VBG shows pCO2 57 bicarb 32, bilirubin 1.5, urinalysis shows small leukocytes few epithelial cells 5-10 WBCs. Culture is not indicated at this time. COVID flu RSV negative, I did discuss with patient the need to wear her oxygen which she has at home 26/02. She is requesting a facial mask as she does not like wearing the cannula in her nose. I feel that this may be a reason for her noncompliance. Patient given a prednisone taper and doxycycline due to report of fever and high white blood cell count to treat empirically for possible early pneumonia. Discussed home care with patient. This text was generated using RotaPostation system, please disregard any oddities of phrase or misspellings. Medical Records Medical records reviewed: Yes I reviewed the patient's medical records. Imaging Data Radiologic Study: Imaging: X-Ray Radiologist's impression: COMPARISON: CR XR CHEST 2V PA LATERAL 11/18/2023 5:56 PM FINDINGS: Lungs: Bilateral moderate to severe hyperinflation consistent with underlying emphysema/COPD. No acute airspace consolidation. No acute edema. Pleural spaces: No pleural effusion. No pneumothorax. Heart/Mediastinum: Normal heart size. Bones/joints: Degenerative thoracic spine. IMPRESSION: 1. Moderate to severe hyperinflation consistent with underlying emphysema/COPD. 2. No acute infiltrates or edema. 3. No acute pleural change. Thank you for allowing us to participate in the care of your patient. Dictated and Authenticated by: Socrates Rudolph MD Lab Data Lab results reviewed: Yes I reviewed the patient's lab results. Labs: 12/21/23 21:03 Blood Blood Culture - Pending 12/21/23 20:07 Blood Blood Culture - Pending Laboratory Tests Range/Units 12/21/23 12/21/23 12/21/23 20:47 21:23 22:56 WBC (4.4-10.8) 10^3/uL 15.06 H RBC (3.93-5.22) 10^6/uL 4.85 Hgb (11.2-15.7) g/dL 14.3 Hct (36.0-46.0) % 43.7 MCV (80-95) fL 90 MCH (27.0-33.0) pg 29.5 MCHC (32.0-36.0) % 32.7 RDW (11.7-14.6) % 12.9 Plt Count (130-400) 10^3/uL 185 MPV (8.0-11.0) fL 11.5 H Immature Gran % % 0.5 Neutrophils % % 82.8 Lymphocytes % % 8.3 Monocytes % % 8.0 Eosinophils % % 0.1 Basophils % % 0.3 Nucleated RBC % (0.0-0.3) % 0.0 Absolute Neutrophils (1.2-6.7) 10^3/uL 12.47 H Absolute Lymphocytes (1.2-3.4) 10^3/uL 1.25 Absolute Monocytes (0.1-0.8) 10^3/uL 1.20 H Absolute Eosinophils (0.0-0.7) 10^3/uL 0.02 Absolute Basophils (0.0-0.2) 10^3/uL 0.05 VBG pH (7.31-7.41) 7.36 VBG pCO2 (41-51) mmHg 57 H VBG pO2 mmHg 30 VBG HCO3 (23-28) mmol/L 32 H VBG Total CO2 (24-29) mmol/L 29 VBG O2 Saturation % 52 VBG Base Excess (-2-3) mmol/L 7 H VBG Lactate (0.6-1.4) mmol/L 1.1 Sodium (136-145) mmol/L 139 Potassium (3.5-5.1) mmol/L 3.9 Chloride (98-107) mmol/L 100 Carbon Dioxide (21.0-32.0) mmol/L 32.4 H Anion Gap (3-11) mmol/L 6.6 BUN (7-18) mg/dL 13 Creatinine (0.55-1.02) mg/dL 0.9 Est GFR (CKD-EPI 2020) (mL/min/1.73m2) 66.67 Glucose (74-106) mg/dL 117 H Calcium (8.5-10.1) mg/dL 9.0 Magnesium (1.8-2.4) mg/dL 1.9 Total Bilirubin (0.2-1.0) mg/dL 1.5 H AST (15-37) U/L 19 ALT (14-59) U/L 19 Alkaline Phosphatase (46-116) U/L 85 Troponin I (< or =60) ng/L < 50 Cancelled NT-Pro-B Natriuret Pep (<300) pg/mL 287 Total Protein (6.4-8.2) g/dL 7.2 Albumin (3.4-5.0) g/dL 3.7 Urine Color (Yellow) Yellow Urine Clarity (Clear) Clear Urine pH (5-8) 6.0 Ur Specific [place] (1.005-1.025) 1.015 Urine Protein (Neg-Trace) mg/dL 30 H Urine Ketones (Negative) mg/dL Negative Urine Blood (Negative) Trace-lysed H Urine Nitrite (Negative) Negative Urine Bilirubin (Negative) Negative Urine Urobilinogen (Up to 0.2) mg/dL 1.0 H Ur Leukocyte Esterase (Negative) Small H Urine RBC (0-2) HPF 0-2 Urine WBC (0-5) HPF 5-10 Ur Epithelial Cells (Negative) HPF Few Urine Crystals (Negative) HPF Negative Urine Bacteria (Negative) HPF Few Urine Casts (Negative) LPF Negative Urine Mucus (Negative) Trace Urine Other (Negative) Few Transitional Ur Culture Indicated? No Urine Glucose (Negative) mg/dL Negative Quality:SDOH Health Related Social Needs: No Data to Display PFSH All Active Problems (Updated 12/21/23 @ 21:59 by Leonie Hicks NP) COPD exacerbation (Acute) Chronic hypoxic respiratory failure (Acute) Acute respiratory failure with hypoxia (Acute) Acute exacerbation of chronic obstructive pulmonary disease (COPD) (Acute) COPD (chronic obstructive pulmonary disease) (Chronic) Essential hypertension (Chronic 09/03/14) Hypothyroidism (Chronic 09/03/14) Lupus (systemic lupus erythematosus) (Chronic 09/03/14) rheum 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 seen at [facility] - has been stable on meds Anxiety (Chronic 09/03/14) Right carotid bruit (Acute) Osteoarthritis (Chronic) Osteoporosis (Chronic) ; left arm, started fosamax Shoulder pain, right (Acute) COVID-19 (Acute) Medical History Pharyngoesophageal dysphagia Normal larygoscopy 07/2020 CAD (coronary artery disease), [place] coronary artery sees cardiology at [facility] yearly Hymenoptera allergy (12/04/14) NSTEMI (non-ST elevated myocardial infarction) Surgical History History of ankle surgery Family History Mother Asthma Father Diabetes Grandfather No problems noted. Grandfather No problems noted. Grandmother No problems noted. Grandmother No problems noted. Social History Smoking/Tobacco Use Status: Former Tobacco Use Tobacco: How many years used: 30 Second Hand Exposure: Yes Smoking risk assessment performed?: Yes Alcohol Intake: never Drug use: Never Substance use type: does not use Household members: children and other Details: 4 WITH 3 SONS Housing: house Duration: 15-30 minutes/day Frequency: 1-2 times per week Seatbelt use: always Do you feel safe at home: Yes Do you feel safe in your relationship?: Yes
[2023-12-21 20:52] LABS: BE (Venous) 7 mmol/L (-2-3); HCO3 (Venous) 32 mmol/L (23-28); O2 Sat (Venous) 52 %; TCO2 (Venous) 29 mmol/L (24-29); pCO2 (Venous) 57 mmHg (41-51); pH (Venous) 7.36 (7.31-7.41); pO2 (Venous) 30 mmHg
[2023-12-21 20:53] LABS: Abs Immature Grans 0.07 10^3/uL (0.0-0.06); Absolute Basophil Count 0.05 10^3/uL (0.0-0.2); Absolute Eosinophil Count 0.02 10^3/uL (0.0-0.7); Absolute Lymphocyte Count 1.25 10^3/uL (1.2-3.4); Absolute Neutrophil Count 12.47 10^3/uL (1.2-6.7); Basophils % 0.3 %; Eosinophils % 0.1 %; HCT 43.7 % (36.0-46.0); HGB 14.3 g/dL (11.2-15.7); Immature Grans % 0.5 %; Lactate 1.1 mmol/L (0.6-1.4); Lymphocytes % 8.3 %; MCH 29.5 pg (27.0-33.0); MCHC 32.7 % (32.0-36.0); MCV 90 fL (80-95); MPV 11.5 fL (8.0-11.0); Neutrophils % 82.8 %; Platelet Count 185 10^3/uL (130-400); RBC 4.85 10^6/uL (3.93-5.22); RDW 12.9 % (11.7-14.6); RDW-SD 42.8 fL; WBC 15.06 10^3/uL (4.4-10.8)
[2023-12-21] MEDS: Albuterol/Ipratropium 3 ML UPD VIAL UPD (21:07)
[2023-12-21] MEDS: methylPREDNISolone SUCC 125 MG VIAL IVP (21:07)
[2023-12-21 21:13] LABS: ALT 19 U/L (14-59); AST 19 U/L (15-37); Albumin 3.7 g/dL (3.4-5.0); Alkaline Phosphatase 85 U/L (46-116); Anion Gap 6.6 mmol/L (3-11); BUN 13 mg/dL (7-18); Bilirubin, Total 1.5 mg/dL (0.2-1.0); CO2 32.4 mmol/L (21.0-32.0); CREATININE 0.9 mg/dL (0.55-1.02); Chloride 100 mmol/L (98-107); Estimated GFR 66.67 (mL/min/1.73m2); Glucose 117 mg/dL (74-106); Magnesium 1.9 mg/dL (1.8-2.4); Potassium 3.9 mmol/L (3.5-5.1); Sodium 139 mmol/L (136-145); Total Protein 7.2 g/dL (6.4-8.2); Troponin I < 50 ng/L (< or =60)
[2023-12-21 21:19] LABS: NT-proBNP 287 pg/mL (<300)
[2023-12-21 21:32] LABS: Bilirubin Negative (Negative); Blood Trace-lysed (Negative); Clarity Clear (Clear); Glucose Negative (Negative); Ketones Negative (Negative); Leukocyte Esterase Small (Negative); Nitrite Negative (Negative); Specific Gravity 1.015 (1.005-1.025)
--- NOTE | 2023-12-21 21:44 | DI.VRAD_ITS ---
PROCEDURE INFORMATION: Exam: XR Chest Exam date and time: 12/21/2023 9:15 PM Age: 73 years old Clinical indication: Other: SOB, HX copd TECHNIQUE: Imaging protocol: Radiologic exam of the chest. Views: 1 view. COMPARISON: CR XR CHEST 2V PA LATERAL 11/18/2023 5:56 PM FINDINGS: Lungs: Bilateral moderate to severe hyperinflation consistent with underlying emphysema/COPD. No acute airspace consolidation. No acute edema. Pleural spaces: No pleural effusion. No pneumothorax. Heart/Mediastinum: Normal heart size. Bones/joints: Degenerative thoracic spine. IMPRESSION: 1. Moderate to severe hyperinflation consistent with underlying emphysema/COPD. 2. No acute infiltrates or edema. 3. No acute pleural change. Dictated and Authenticated by: Socrates Rudolph MD. Ordering:GUNNER Hadley MD
[2023-12-21 21:48] LABS: Bacteria Few HPF (Negative); C & S Indicated? No; Casts Negative LPF (Negative); Crystals Negative HPF (Negative); Epithelial Cells Few HPF (Negative); Mucus Trace (Negative); Other Cells Few Transitional (Negative); RBC 0-2 HPF (0-2)
[2023-12-21 22:11] LABS: COVID-19 PCR Negative (Negative); Influenza A PCR Negative (Negative); Influenza B PCR Negative (Negative); RSV PCR Negative (Negative); Source Nasopharynx
[2023-12-21] MEDS: Doxycycline Hyclate 100 MG, 2 CAPS/BTL PO (22:50)
[2023-12-21] MEDS: Doxycycline Hyclate 100 MG CAP PO (22:50)
== END 2023-12-21 23:29 | disposition home or self-care (01) ==
PROVIDERS: Emergency Provider Registered Nurse Emergency; PCP Nurse Practitioner Family
DX: J44.1 Chronic obstructive pulmonary disease with (acute) exacerbation (principal); I25.10 Atherosclerotic heart disease of native coronary artery without angina pectoris; I25.2 Old myocardial infarction; G40.A09 Absence epileptic syndrome, not intractable, without status epilepticus; M32.9 Systemic lupus erythematosus, unspecified; D72.829 Elevated white blood cell count, unspecified; Z79.82 Long term (current) use of aspirin; Z87.891 Personal history of nicotine dependence
CPT/HCPCS: 80053; 82805; 87040; 87637; 93005; 94640; 96374; 99285; 71045; 81003; 81015; 83605; 83735; 83880; 84484; 85025; 93010; 99284; J2919; J7620

== ENCOUNTER → 2024-01-03 13:30 | Outpatient (BNVA) | payer MEDICARE, SELFPAY | PROVIDERS: PCP Nurse Practitioner Family; Referring Provider Nurse Practitioner Family; Visit Provider Physician Assistant Surgical | DX: J43.1 Panlobular emphysema (principal); J96.11 Chronic respiratory failure with hypoxia | CPT/HCPCS: 99214 ==

== ENCOUNTER 2024-05-02 13:51 | Emergency (ER) | payer MEDICARE, SELFPAY ==
[2024-05-02 13:52] VITALS: BP 164/71; PULSE 66; RESP 14; TEMP 36.7; O2SAT 92
--- OUTSIDE RECORDS SUMMARY | 2024-05-02 13:57 | XMS_ITS | Encounter Summary ---
Author Organization [facility] [place] [address] Care Team Providers Care Vest Presser Name Role Phone Gabby Castaneda SUDHAKAR Primary Care Provider [phone] Encounter Details Date Type Department Care Team (Late st Contact Info) Description 10/02/2022 Telephone Cardiology at [address] [phone] Tiffany David, RN Social History Tobacco Use Types Packs/Day Years Used Date Smoking Tobacco: Former Cigarettes 1 30 0 02/16/1975 - 02/16/2005 Smokeless Tobacco: Never Alcohol Use Standard Drinks/Week Comments Yes 0 (1 standard drink = 0.6 oz pure alcohol) 1 beer every 2-3 weeks, rare use Sex and Gender Information Value Date Recorded Sex Assigned at Not on file Gender Identity Not on file Sexual Orientation Not on file documented as of this encounter Miscellaneous Notes * Telephone Encounter - Tiffany David RN - 10/02/2022 2:58 PM EST Call to patient with message from Dr. Chavez regarding his 09/25/22 Carotid Duplex imaging, Bilateral- Could you please let her know that there has been no change in her carotid artery disease. Medical management as we are doing is what is indicated. Thanks Patient verbalized her understanding. Was also told that her Rx for amlodipine was refilled on 09/27/[address] Chavez. She has no other concerns at this time. Tiffany David RN, BSN Ambulatory Cardiology Department documented in this encounter Plan of Treatment Upcoming Encounters Date Type Department Care Team (Late st Contact Info) Description 05/29/2024 2:00 PM EDT Office Visit Cardiology at [address] [phone] Estiven Raza MD [facility] [place] [address] documented as of this encounter Visit Diagnoses Not on filedocumented in this encounter Care Teams Vest Presser Relationship Specialty Start Date End Date Gabby Castaneda APRN [address] [place] [address] PCP - General Family Medicine 07/19/21 04/30/23 documented as of this encounter
--- OUTSIDE RECORDS SUMMARY | 2024-05-02 13:57 | XMS_ITS | Encounter Summary ---
Author Organization [facility] Address [place] [address] Care Team Providers Care Varnish Melter Helper Name Role Phone Payam, Loulou Rosa APRN Primary Care Provider [phone] Encounter Details Date Type Department Care Team (Late st Contact Info) Description 12/21/2023 [place] [phone] Unknown None Social History Tobacco Use Types Packs/Day Years [...] encounter Miscellaneous Notes * Telephone Encounter - Serenity Lancaster - 12/21/2023 2:55 PM EDT Patient calling in: Caller: Thanh Gonzalez If not PT/Relation to PT: self Best number to reach caller: [phone] Reason for the Call: To check on the status of their referral: If not, what is the reason for their call: See if referral is needed to schedule Previous Neurology Information Questions: Has the patient seen another Neurologist: No If yes, when and where: n/a Has the patient had any imaging done outside of : No If yes, when and where: n/a documented in this encounter Plan of Treatment Upcoming Encounters Date Type Department Care Team (Late st Contact Info) Description 05/29/2024 2:00 PM EDT Office Visit Cardiology at [address] [phone] Estiven Raza MD [facility] [place] [address] documented as of this encounter Visit Diagnoses Not on filedocumented in this encounter Care Teams Varnish Melter Helper Relationship Specialty Start Date End Date Payam, Loulou Rosa APRN [address] [facility] [address] [place] [address] PCP - General Internal Medicine 05/01/23 documented as of this encounter
--- OUTSIDE RECORDS SUMMARY | 2024-05-02 13:57 | XMS_ITS | Encounter Summary ---
Author Organization [facility] Address [facility] [place] [address] Care Team Providers Care Manager Retention Name Role Phone Gabby Castaneda APRN Primary Care Provider [phone] Encounter Details Date Type Department Care Team (Latest Contact Info) Description 09/25/2022 Travel Social History Tobacco Use Types Packs/Day Years [...] on file documented as of this encounter Plan of Treatment Upcoming Encounters Date Type Department Care Team (Late st Contact Info) Description 05/29/2024 2:00 PM EDT Office Visit Cardiology at [address] [phone] Estiven Raza MD [facility] [place] [address] documented as of this encounter Visit Diagnoses Not on filedocumented in this encounter Care Teams Manager Retention Relationship Specialty Start Date End Date Gabby Castaneda APRN [address] [place] [address] PCP - General Family Medicine 07/19/21 04/30/23 documented as of this encounter
--- OUTSIDE RECORDS SUMMARY | 2024-05-02 13:57 | XMS_ITS | Encounter Summary ---
Author Organization Formerly [facility], Later [facility] [place] [address] Care Team Providers Care Legal Aid Name Role Phone Loulou Hare APRN Primary Care Provider [phone] Reason for Referral * Consultation (Routine) - Closed Specialty Diagnoses / Procedures Referred By Rangel t Referred To Contact Pulmonology Diagnoses Chronic obstructive pulmonary disease, unspecified COPD type Obstructive chronic bronchitis with acute exacerbation Asthma with acute exacerbation, unspecified asthma severity, unspecified whether persistent Loulou Hare APRN [address] [place] [address] [facility] [address] [place] [id number] Referral ID Status Reason Start Date Expiration Date V isits Requested Visits Authorized [id number] Closed Consult, Test & Treat PCP Updated and/or Approved 05/01/2023 04/30/2024 6 6 Encounter Details Date Type Department Care Team (Late st Contact Info) Description 05/01/2023 Transcribe Orders eDH Incoming Referrals [phone] Loulou Hare APRN [address] [place], [place] [id number] Chronic obstructive pulmonary disease, unspecified COPD type; Obstructive chronic bronchitis with acute exacerbation; Asthma with acute exacerbation, unspecified asthma severity, unspecified whether persistent Social History Tobacco Use Types Packs/Day Years [...] 2:00 PM EDT Office Visit Cardiology at [address] [phone] Estiven Raza MD [facility] [address] Scheduled Referrals Name Type Priority Associated Diagnoses Orde r Schedule Referral to Pulmonology Outpatient Referral Routine Chronic obstructive pulmonary disease, unspecified COPD type Obstructive chronic bronchitis with acute exacerbation Asthma with acute exacerbation, unspecified asthma severity, unspecified whether persistent Ordered: 05/01/2023 documented as of this encounter Visit Diagnoses Diagnosis Chronic obstructive pulmonary disease, unspecified COPD type Obstructive chronic bronchitis with acute exacerbation Obstructive chronic bronchitis with exacerbation Asthma with acute exacerbation, unspecified asthma severity, unspecified whether persistent documented in this encounter Care Teams Legal Aid Relationship Specialty Start Date End Date Payam, Loulou Rosa APRN [address] [place] [address] PCP - General Internal Medicine 05/01/23 documented as of this encounter
--- OUTSIDE RECORDS SUMMARY | 2024-05-02 13:57 | XMS_ITS | Encounter Summary ---
Author Organization [facility] Address [facility] [place] [address] Care Team Providers Care Security Project Manager Name Role Phone Gabby Castaneda SUDHAKAR Primary Care Provider [phone] Reason for Visit * Reason Comments Medication Refill Encounter Details Date Type Department Care Team (Late st Contact Info) Description 05/11/2022 [place] [phone] Sam Monzon MD [facility] [place] [address] Stage 2 moderate COPD by GOLD classification Social History Tobacco Use Types Packs/Day Years [...] PM EDT Office Visit Cardiology at [address] [phone] Estiven Raza MD [facility] [place] [address] documented as of this encounter Visit Diagnoses Diagnosis Stage 2 moderate COPD by GOLD classification documented in this encounter Care Teams Security Project Manager Relationship Specialty Start Date End Date Gabby Castaneda APRN [address] [place] [address] PCP - General Family Medicine 07/19/21 04/30/23 documented as of this encounter
--- OUTSIDE RECORDS SUMMARY | 2024-05-02 13:57 | XMS_ITS | Encounter Summary ---
Author Organization [facility] Address [facility] [place] [address] Care Team Providers Care Sales Program Manager Name Role Phone Gabby Castaneda SUDHAKAR Primary Care Provider [phone] Reason for Visit * Reason Comments Follow-up Encounter Details Date Type Department Care Team (Latest Contact Info) Description 11/21/2022 9:00 AM EDT Office Visit Cardiology at [address] [address] Dionte Chavez MD [facility] [address] Atherosclerosis of [place] coronary artery of [place] heart without angina pectoris Social History Tobacco Use Types Packs/Day Years [...] on file documented as of this encounter Last Filed Vital Signs Vital Sign Reading Time Taken Comments Blood Pressure 147/54 11/21/2022 9:07 AM EDT Pulse 68 11/21/2022 9:07 AM EDT Temperature - - Respiratory Rate - - Oxygen Saturation 95% 11/21/2022 9:07 AM EDT Inhaled Oxygen Concentration - - Weight 65.8 kg (145 lb) 11/21/2022 9:07 AM EDT Height 152.4 cm (5') 11/21/2022 9:07 AM EDT Body Mass Index 28.32 11/21/2022 9:07 AM EDT documented in this encounter Patient Instructions * Patient Instructions* Dionte Chavez MD - 11/21/2022 9:00 AM EDT Please start taking your blood pressure at home. Call me in 2 weeks with the measurements at [phone]. I will call you back. Today, on your way out go to the lab for blood work. I will call you with the results. Continue with your current medications. For your balance problem I would talk with your primary care doctor. She may suggest going to Physical Therapy. Call me with any concerns. I will see you back in 9 months. documented in this encounter Progress Notes * Dionte Chavez MD - 11/21/2022 9:00 AM EDT SUBJECTIVE: 72 y.o. woman being seen for a CC of CAD and RODRIGUEZ. Patient Active Problem List Diagnosis ??? Hip pain ??? Hoarseness of voice ??? Pharyngoesophageal dysphagia ??? Right carotid bruit ??? CAD (coronary artery disease), [place] coronary artery ??? NSTEMI (non-ST elevated myocardial infarction) ??? Epidural lipomatosis ??? Spinal stenosis of lumbar region with radiculopathy ??? Allergic to bees ??? Hx of adenomatous colonic polyps 03/23/08: tubular adenoma at [facility] ??? Hypothyroid ??? Alopecia Scarring, alopecia, and hair loss, likely multifactorial. ??? Adult ADHD ??? Anxiety ??? COPD (chronic obstructive pulmonary disease) D/C'd cigs ~ 2005 p ~ 25 pack-yrs. ??? Hypertension ??? Insomnia ??? Seizure disorder Absence seizures ??? Systemic lupus erythematosus mild systemic lupus erythematosus. Seen in past by Dr. Sherri Wilson. ??? Osteopenia DXA 12/2006 [facility] LS SPINE T SCORE -1.4; Left hip T SCORE -0.7 Past Surgical History: Procedure Laterality Date ??? ANKLE FRACTURE SURGERY 2006 ??? CARDIAC CATHERIZATION ??? CREATED BY INTERFACE open reduction, internal fixation-right ankle Procedure Date: 2006 ??? TONSILLECTOMY Family History Problem Relation Age of Onset ??? Chronic Obstructive Pulmonary Disease Mother ??? Asthma Mother ??? Diabetes Father ??? Heart Failure Maternal Aunt ??? Heart Disease Maternal Aunt ??? Heart Disease Paternal Uncle ??? Cancer Maternal Grandmother Social History Socioeconomic History ??? Marital status: Spouse name: None ??? Number of children: None ??? Years of education: None ??? Highest education level: None Occupational History Comment: retired Tobacco Use ??? Smoking status: Former Packs/day: 1.00 Years: 30.00 Pack years: 30.00 Types: Cigarettes Quit date: 02/16/2005 Years since quittin.7 ??? Smokeless tobacco: Never Vaping Use ??? Vaping Use: Never used Substance and Sexual Activity ??? Alcohol use: Yes Comment: 1 beer every 2-3 weeks, rare use ??? Drug use: Yes Types: Marijuana Comment: medical marijuana card ??? Sexual activity: None Other Topics Concern ??? Abuse or Threat: Help requested by patient No ??? Abuse or Threat: Physical, Sexual, Verbal No ??? Back Care No ??? Bike Helmet No ??? Blood Transfusions No ??? Caffeine Concern No ??? Exercise No ??? Exercise: Patient reported No ??? Hobby Hazards No ??? Service No ??? Occupational Exposure Yes ??? Poor oral hygiene No ??? Seat Belt Yes ??? Second-hand smoke exposure No ??? Self-Exams No ??? Sleep Concern No ??? Special Diet No ??? Stress Concern No ??? Violence Concern No ??? Weight Concern No Social History Narrative Apr 2012: lives in [place], [place] [place] [address] partner: Apollo Dumont (d. 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 EtOH: rare/none 1 dog in home, keeps chickens and a beefalo; raising turkeys for Thanksgiving. martha lawn, uses zahira Social Determinants of Health Financial Resource Strain: Not on file Food Insecurity: Not on file Transportation Needs: Not on file Physical Activity: Not on file Housing Stability: Not on file Current Outpatient Medications Medication Sig Dispense Refill ??? amLODIPine (Norvasc) 2.5 mg Tablet Take 1 tablet by mouth daily. 30 tablet 2 ??? Combivent Respimat 20-100 mcg/actuation Mist INHALE 1 PUFF BY MOUTH FOUR TIMES A DAY 4 g 11 ??? alendronate (Fosamax) 70 mg Tablet TAKE 1 TABLET BY MOUTH PER WEEK ??? albuteroL 90 mcg/actuation HFA Aerosol Inhaler Inhale 2 puffs into the lungs every 4 hours as needed for Wheezing. Use with spacer 1 each 11 ??? furosemide (Lasix) 20 mg Tablet Take 2 tablets by mouth daily. (Patient taking differently: Take 40 mg by mouth daily. 1 time daily) 180 tablet 1 ??? ipratropium-albuteroL (Duoneb) 0.5 mg-3 mg(2.5 mg base)/3 mL Solution for Nebulization Take 0.5mg by nebulization every 8 hours as needed. Dx: COPD J44.9 270 mL 3 ??? tiotropium-olodateroL (Stiolto Respimat) 2.5-2.5 mcg/actuation Mist Inhale 2 puffs into the lungs daily. 4 g 11 ??? lidocaine (Lidoderm) 5% Adhesive Patch, Medicated Apply topically. ??? triamterene-hydrochlorothiazide (DYAZIDE) 37.5-25 mg Capsule TAKE ONE CAPSULE BY MOUTH EVERY DAY 4 ??? nitroGLYcerin (NITROSTAT) 0.4 mg Tablet, Sublingual Place 1 tablet under the tongue every 5 minutes as needed for Chest pain. 5 tablet 0 ??? acetaminophen (TYLENOL) 325 mg Tablet Take 650 mg by mouth every 4 hours as needed for Pain. ??? atorvastatin (LIPITOR) 40 mg Tablet Take 1 tablet by mouth every evening. 30 tablet 2 ??? gabapentin (NEURONTIN) 300 mg Capsule TAKE ONE CAPSULE BY MOUTH EVERY MORNING AND 2 CAPSULES ATBEDTIME 270 capsule 3 ??? LORazepam (ATIVAN) 1 mg Tablet 1 tab at HS as needed for sleep. May take 1 tab during the day for anxiety if needed. 30 tablet 0 ??? levothyroxine (SYNTHROID) 50 mcg Tablet Take 1 tablet by mouth daily. 90 tablet 3 ??? COMBIVENT RESPIMAT 20-100 mcg/actuation Mist INHALE ONE PUFF BY MOUTH FOUR TIMES A DAY (Patienttaking differently: Inhale 1 puff into the lungs as needed.) 4 Inhaler 11 ??? citalopram (CELEXA) 20 mg Tablet TAKE ONE TABLET BY MOUTH EVERY DAY 90 tablet 3 ??? EPINEPHrine (EPIPEN) 0.3 mg/0.3 mL (1:1,000) injection Inject 0.3 mLs into the muscle daily as needed. 2 each 11 No current facility-administered medications for this visit. Allergies Allergen Reactions ??? Bee Venom Protein (Honey Bee) Other reaction(s): Anaphylaxsis ??? Hymenoptera Allergenic Extract Anaphylaxis ??? Other [Unclassified Drug] Anaphylaxis Black flies, mosquitos ( SWELLING) ??? Amoxicillin Trihydrate Other reaction(s): Diarrhea - Severe ??? Potassium Clavulanate Other reaction(s): Diarrhea - Severe ??? Sulfamethoxazole Other reaction(s): Itching ??? Tetanus Vaccines And Toxoid ??? Benzonatate Other reaction(s): rash HPI: (FROM 04/02/18: Hospitalied 03/01- for a NSTEMI. No flow limiting CAD on cath but LVEDP 20.Normal EF on echo without segmental WMA (see below). Diagnosis of exclusion was coronary vasospasm.Has done well since discharge. Her lasix and metoprolol have been stopped by her PCP. She is not enrolled in cardiac rehab because of travel issues but has started PT. Today she reports a use of HempOil/ CVT Oil for help with her breathlessness. She did use this the morning of her DC. She has continued to use it and finds that it causes transient chest pain and SOB that last for 5-10 minutes. Ifshty does not take this medication she does not experience these symptoms.) (FROM 05/04/20: No serious intercurrent illnesses. Taking all her medications as prescribed and notes no side effects. Still limited by RODRIGUEZ. Followed here by Pulmonary. No orthopnea, PND, ankle edema,palpitations, presyncope/syncope, chest pain or pressures. Can carry on her ADLs but finds it difficult to go for short walks.) (FROM 12/27/20: Seen 12/13/20 by of Pulmonary who thought her pulmonary pathology/funnctional status was minimally changed but did suggest using supplemental oxygen with ambulation which might help with her chronic RODRIGUEZ. Continues to be limited by RODRIGUEZ. Thinks it is a bit worse than when lastseen. She wonders if it is her anxiety about being SOB versus actually being SOB. No chest pains orpressures with exertion. No orthopnea or PND. No palpitations, presyncope or syncope. No recent falls. Can do chores around the house (e.g., cooking, cleaning, wash floors). Does not go down the basement stairs. Can walk through a grocery store for 2 hours as long as she is holding onto a grocery cart. Taking and tolerating her medications. Not using oxygen. No cigarettes. Has a treadmill but not using it on a regular basis. Weight stable but clearly overweight. No cough, wheezing, sputum production.) (FROM 07/19/21: No chest pains or pressure. Remains with RODRIGUEZ that is thought secondary to her COPD.Being followed by Pulmonary. Taking/tolerating all her medications as prescribed and notes no side effects. Her PCP increased her furosemide to 40 mg QD and discontinued her Plaquenil. Had a recent laboratory evaluation at [facility]. Results not currently available in [place] campus. Not routinely taking her BP athome. Did not take her medications this morning. No cigarettes. Not diabetic. No regular exercise though she does have a treadmill. Weight stable.) FROM 11/20/22: Major QOL issue is her COPD. Also notes trouble with her balance when walking on unlevel surfaces. No falls. No chest pains/pressures. Baseline RODRIGUEZ. Going to [employer] for implants in her lower jaw. Once and while taking her BP at home. Not certain what it has been running. Taking/tolerating her medications as prescribed. ROS: The patient denies or endorses (+): General: Unusual fatigue, fever, night sweats Cardiac: Unusual chest pains and/or pressures, +unusual RODRIGUEZ, orthopnea, PND, peripheral edema, new nocturia, palpitations, presyncope, syncope Pulmonary: Cough, wheezing, sputum production, hemoptysis Neuro: TIA or stroke-like symptoms Vascular: Exertional calf, thigh or buttock pain to suggest claudication : Hematuria GI: Melena, bright red blood per rectum MS: Myalgias, +arthralgias Endo: Cold or heat intolerance PHYSICAL EXAM Blood pressure 147/54, pulse 68, height 152.4 cm (5'), weight 65.8 kg (145 lb), SpO2 95 %. Middle aged woman looking slightly older than stated age in NAD HEENT: Normocephalic, anicteric, pupils equal, round, reactive to light and accomodation Chest: No palpation tenderness, increased AP diameter Lungs: Clear to auscultation and percussion, prolonged expiratory phase Cardiac: Normal CVP, carotid up strokes full/not delayed, no carotid bruits, PMI discrete and not displaced, S1, S2 with physiologic splitting, no murmurs/rubs/gallops appreciated Pulses: 2+ and symmetrical throughout, no femoral artery bruits Extremities: No clubbing, cyanosis, or edema Neuro: Grossly intact Echo 03/02/18 1. Basal septal hypertrophy is observed. There is normal global left ventricular systolic function. The quantitative left ventricular ejection fraction by biplane Medina's method is 73%. There are no left ventricular segmental wall motion abnormalities. 2. Right ventricular chamber size, wall thickness, and systolic function are within normal limits. 3. There is no hemodynamically significant valve disease. 4. See remainder of report for additional findings. Carotid Duplex 05/04/20 RIGHT: There is bulky irregular plaque in the proximal internal carotid artery causing 16-49% stenosis when compared to the more distal internal carotid artery. The bifurcation level is in the mid neck. No significant change compared to the exam on 04/02/2019. LEFT: There is bulky irregular plaque in the proximal internal carotid artery causing 16-49% stenosis when compared to the more distal internal carotid artery. The bifurcation level is in the mid neck. No significant change compared to the exam on 04/02/2019. Vertebral Artery Data: Patent vertebral arteries with normal antegrade Doppler waveforms and velocities bilaterally. Carotid Duplex 09/27/22 RIGHT: There is irregular plaque in the common carotid artery causing <50% stenosis by B-mode. There is bulky irregular plaque in the proximal internal carotid artery causing 16-49% stenosis when compared to the more distal internal carotid artery. The bifurcation level is in the mid neck. No significant change compared to the exam on 03/01/22. ?? LEFT: There is irregular plaque in the common carotid artery causing <50% stenosis by B-mode. There is bulky irregular plaque in the proximal internal carotid artery causing 16-49% stenosis when compared to the more distal internal carotid artery. The bifurcation level is in the mid neck. No significant change compared to the exam on 03/01/22. ?? Vertebral Artery Data: Patent vertebral arteries with normal antegrade Doppler waveforms and velocities bilaterally. ?? Previous Carotid Studies: Date ?RIGHT ICA Stenosis ??PSV ?? Ratio ?? LEFT ICA Stenosis ?? PSV ?? Ratio ? 16-49% ? 94 ?1.70 ? 16-49% ? 138 ?? 1.00 ? 16-49% ? 110 ?? 1.40 ? 16-49% ? 164 ?? 1.60 ? 16-49% ? 115 ?? 1.70 ? 16-49% ? 117 ?? 1.20 Current Exam ? 16-49% ? 136 ?? 2.00 ? 16-49% ? 136 ?? 1.10 EKG 12/27/20 which I personally reviewed: Sinus petra at 57 bpm with a PAC ASSESSMENT & PLAN: (FROM 04/02/18: I think it is possible that her medical cannabis was responsible for her NSTMI and I advised her to stop its use. Usually, the cannabis would could cause problems for patients with flow limiting CAD which she does not have. I will have to research this. She remains on ASA, atorvastatin and low dose amlodipine for her non-flow limiting CAD. Her BP is under good control She is not diabetic. She no longer smokes cigarettes. She is exercising. She is trying to eat a heart healthy diet.) (FROM 05/04/20: No evidence of ischemia. On aspirin and a statin for her non-flow limiting CAD. BP under good control. What I do not know is how much of her RODRIGUEZ is secondary to her COPD and/or HFpEF. We agreed to an empiric trial of 10 mg furosemide QD. She will call me in 2-3 weeks to discuss her symptoms. May want to try advancing the furosemide to 20 mg QD.) (FROM 12/27/20: CAD: No evidence of active ischemia. On ASA and a statin. Good rate and BP control. Would benefit from weight loss and exercise. RODRIGUEZ: No compelling evidence that it is secondary to active ischemia, heart failure or an arrhythmia. I think it is a combination of her COPD and deconditioning. I strongly recommended that she trial home oxygen. We discussed using the treadmill at least every other day, starting slowly and building up her conditioning. She declined a referral to our rail manager.) (FROM 07/19/21: CAD: No evidence of active ischemia. On ASA and a statin. She is on 2 diuretics andboth very low dose amlodipine and lisinopril. I think we can safely simplify her medical regimen. She will stop her Dyazide and continue with her furosemide. She will stop her lisinopril and continuewith her amlodipine. She will start taking her BP at home and report her measurements to use by phone in 3 weeks. If necessary her dose of amlodipine can be increased. Her heart rate is on the low side and metoprolol is not very helpful in the management of hypertension. I think she can safely stop it. Would benefit from weight loss and exercise. RODRIGUEZ: No compelling evidence that it is secondary to active ischemia, heart failure or an arrhythmia. I think it is a combination of her COPD and deconditioning. We discussed using the treadmill at least every other day, starting slowly and building up her conditioning. She declined a referral to our rail manager. PAD: Has moderate carotid disease. On ASA plus a statin. Will repeat her carotid du plex when next seen.) FROM 11/20/22: CAD: No evidence of active ischemia. Risk factors being actively managed. HBP: Likelynot at goal. Asked that she monitor it at home and call in 2 weeks with measurements. May well needto increase her dose of amlodipine. PVD: Stable carotid disease. No indication for surgery. Risk factors being actively managed. Imbalance: Should f/u with PCP. May benefit from PT. Time was spent in a face to face conversation with the patient (and accompanying family members, ifpresent) regarding my impressions and recommendations and providing counseling. All questions were answered to the patient's (and accompanying family's, if present) satisfaction. I will plan to see the patient back in follow-up in 9 months. documented in this encounter Plan of Treatment Upcoming Encounters Date Type Department Care Team (Late st Contact Info) Description 05/29/2024 2:00 PM EDT Office Visit Cardiology at [address] [phone] Estiven Raza MD [facility] [place] [address] documented as of this encounter Procedures Procedure Name Priority Date/Time Associated Diagnosis Comments LDL CHOLESTEROL, DIRECT Routine 11/21/2022 10:20 AM EDT Atherosclerosis of gila [place] coronary artery of [place]ila [place] heart without angina pectoris BASIC METABOLIC PANEL Routine 11/21/2022 10:20 AM EDT Atherosclerosis of [place] coronary artery of [place] heart without angina pectoris documented in this encounter Results * LDL Cholesterol, Direct (11/21/2022 10:20 AM EDT) LDL Cholesterol, Direct 56 mg/dL [facility] Comment: Lowest Risk: <100 mg/dL Lower Risk: 100-129 mg/dL Borderline High Risk: 130-159 mg/dL High Risk: 160-189 mg/dL Very High Risk: >px=759 mg/dL Blood 11/21/2022 10:2 0 AM EDT 11/21/2022 10:49 AM EDT Narrative Resulting Agency Comment Spec In Lab Dionte Chavez MD CHEMISTRY ORDERABLES Performing Organization Address City/[facility]/ZIP Co de Phone Number [facility] [place] [address] * Basic Metabolic Panel (non-fasting) (11/21/2022 10:20 AM EDT) Glucose 89 65 - 199 mg/dL [facility] Comment:Diabetes: >=200 mg/d L plus symptoms Blood Urea Nitrogen 11 8 - 18 mg/dL [facility] Creatinine 0.82 0.70 - 1.20 mg/dL [facility] Sodium 142 135 - 145 mmol/L [facility] Potassium 3.5 3.5 - 5.0 mmol/L [facility] Comment: Please note: ??Patients with WBC >100,000 may have falsely elevated Potassium levels. ??For accurate Potassium quantification in these patients send serum separator tube (gold top) for subsequent determinations. ??Contact the Clinical Chemistry Laboratory if there are any questions. Chloride 102 98 - 107 mmol/L [facility] Carbon Dioxide 30 22 - 31 mmol/L [facility] Anion Gap 10 5 - 15 mmol/L [facility] Calcium 9.0 8.5 - 10.5 mg/dL [facility] Est Glomerular Filtration Rate 75 >=60 mL/min/1. 73 m?? [facility] Comment: This patient's estimated GFR was calculated using the 2020 CKD-EPI equation. The estimated GFR can vary from the measured GFR by up to 30% in the absence of rapidly changing kidney function. Assessment of the estimated GFR is not appropriate when creatinine concentrations are rapidly changing. For clinical situations in which a more precise estimate of GFR is necessary, consider alternative methods of GFR estimation such as a 24-hour urine creatinine clearance. Assignment of CKD stage 1-5 for patients with an eGFR near the transition point between stages may be based on clinical assessment of muscle mass and symptoms in addition to eGFR. Blood 11/21/2022 10:2 0 AM EDT 11/21/2022 10:49 AM EDT Narrative Resulting Agency Comment Spec In Lab Dionte Chavez MD CHEMISTRY ORDERABLES [facility] [place] [address] documented in this encounter Visit Diagnoses Diagnosis Atherosclerosis of [place] coronary artery of [place] heart without angina pectoris documented in this encounter Care Teams Sales Program Manager Relationship Specialty Start Date End Date Gabby Castaneda APRN [address] [place] [address] PCP - General Family Medicine 07/19/21 04/30/23 documented as of this encounter
--- OUTSIDE RECORDS SUMMARY | 2024-05-02 13:57 | XMS_ITS | Encounter Summary ---
Author Organization [facility] [place] [address] Care Team Providers Care Manager Respiratory Name Role Phone Gabby Castaneda SUDHAKAR Primary Care Provider [phone] Encounter Details Date Type Department Care Team (Late st Contact Info) Description 03/02/2022 Telephone Cardiology at [address] [phone] Aicha Blackwell, RN Social History Tobacco Use Types Packs/Day [...] encounter Miscellaneous Notes * Telephone Encounter - Aicha Blackwell RN - 03/02/2022 3:23 PM EDT TC to Mrs Gonzalez to convey message and recommendations from Dr Chavez: Please let her know that her carotid disease is unchanged. She has some moderate disease that we are appropriately treating with medication. Thanks. DJM Left VM with this message and Cardiology team RN telephone number for any questions, or concerns. Aicha Blackwell (Jodie), RN, BSN [facility] documented in this encounter Plan of Treatment Upcoming Encounters Date Type Department Care Team (Late st Contact Info) Description 05/29/2024 2:00 PM EDT Office Visit Cardiology at [address] [phone] Estiven Raza MD [facility] [place] [address] documented as of this encounter Visit Diagnoses Not on filedocumented in this encounter Care Teams Manager Respiratory Relationship Specialty Start Date End Date Gabby Castaneda APRN [address] [place] [address] [address] [place] [address] PCP - General Family Medicine 07/19/21 04/30/23 documented as of this encounter
--- OUTSIDE RECORDS SUMMARY | 2024-05-02 13:57 | XMS_ITS | Encounter Summary ---
Author Organization [facility] Address [facility] [place] [address] Care Team Providers Care Director Of Epidemiology Name Role Phone Gabby Castaneda SUDHAKAR Primary Care Provider +1 [phone] Encounter Details Date Type Department Care Team (Late st Contact Info) Description 04/22/2023 Ancillary Procedure Radiology Library at [facility] AM[place] [phone] Payam, Loulou Rosa APRN [address] [address] Social History Tobacco Use Types Packs/Day Years [...] PM EDT Office Visit Cardiology at [address] [place] [phone] Estiven Raza MD [facility] [address] [place] [place] [id number] documented as of this encounter Procedures Procedure Name Priority Date/Time Associated Diagnosis Comments FILM LIBRARY STORAGE ONLY DX CHEST Routine 04/22/2023 12:00 AM EDT documented in this encounter Results * Film Library- Storage Only DX Chest (04/22/2023 12:00 AM EDT) Narrative MING - 05/03/2023 12:22 PM EDT This exam is auto-finalizing. It's purpose is for storage only. Loulou Singerost SUDHAKAR IMG FILM LIBRARY O RDERABLES [facility] [place] documented in this encounter Visit Diagnoses Not on filedocumented in this encounter Care Teams Director Of Epidemiology Relationship Specialty Start Date End Date Gabby Castaneda APRN [address] [place] [address] [address] [place] [address] PCP - General Family Medicine 07/19/21 04/30/23 documented as of this encounter
--- OUTSIDE RECORDS SUMMARY | 2024-05-02 13:57 | XMS_ITS | Encounter Summary ---
Author Organization [facility] [place] [address] Care Team Providers Care Endband Sizer Name Role Phone Gabby Castaneda SUDHAKAR Primary Care Provider +1 -[phone] Encounter Details Date Type Department Care Team (Late st Contact Info) Description 12/05/2022 Telephone Cardiology at [address] [phone] Aicha Blackwell, RN Social History Tobacco Use [...] Miscellaneous Notes * Telephone Encounter - Aicha Blackwell, RN - 12/05/2022 8:36 AM EDT TC to Laboratory, and left message requesting to know if Mrs Gonzalez's BmP Blood work request has bee received by them. Left VM requesting call back. Routed BMP through computer to [facility] Laboratory. TC to Mrs Gonzalez, who states she is only taking her potassium supplement 2-3 times per week. Asked her to have her BmP drawn this week, to determine if this dosing is effective, Mrs Gonzalez agrees to have this blood work done. Aicha Blackwell (Jodie), RN, BSN Cardiology Ambulatory [facility] documented in this encounter Plan of Treatment Upcoming Encounters Date Type Department Care Team (Late st Contact Info) Description 05/29/2024 2:00 PM EDT Office Visit Cardiology at [address] [address] Estiven Raza MD [facility] [address] documented as of this encounter Visit Diagnoses Not on filedocumented in this encounter Care Teams Endband Sizer Relationship Specialty Start Date End Date Gabby Castaneda, SUDHAKAR [address] [place] [address] PCP - General Family Medicine 07/19/21 04/30/23 documented as of this encounter
--- OUTSIDE RECORDS SUMMARY | 2024-05-02 13:57 | XMS_ITS | Encounter Summary ---
Author Organization [facility] [place] [address] Care Team Providers Care Jailor Name Role Phone Gabby Castaneda Alcira DE LA FUENTE Primary Care Provider +1 [phone] Encounter Details Date Type Department Care Team (Late st Contact Info) Description 11/27/2022 Telephone Cardiology at [address] [phone] Aicha Blackwell, RN Social History Tobacco Use [...] Telephone Encounter - Aicha Blackwell, RN - 11/27/2022 1:23 PM EDT RTC to Ms Gonzalez regarding her question as to whether Fosamax is the same as Potassium Supplement. Talked with her about the action of Fosamax for bone building, and the potassium for increasing her Potassium level, which was 3.5 on 11/21/2022, which is low normal and hence her potassium supplement. Mrs Gonzalez agrees to take her potassium supplement, and have her BMP drawn in 2 weeks, at [facility]. Forwarding to Aircraft Loadmaster Superintendent. Aicha Blackwell (Jodie), RN, BSN Cardiology Ambulatory Clinic documented in this encounter Plan of Treatment Upcoming Encounters Date Type Department Care Team (Late st Contact Info) Description 05/29/2024 2:00 PM EDT Office Visit Cardiology at [address] [address] Estiven Raza MD [facility] [address] documented as of this encounter Visit Diagnoses Not on filedocumented in this encounter Care Teams Jailor Relationship Specialty Start Date End Date Gabby Castaneda APRN [address] [place] [address] PCP - General Family Medicine 07/19/21 04/30/23 documented as of this encounter
--- OUTSIDE RECORDS SUMMARY | 2024-05-02 13:57 | XMS_ITS | Encounter Summary ---
Author Organization [facility] [place] [address] Care Team Providers Care Residential Driver Name Role Phone Gabby Castaneda SUDHAKAR Primary Care Provider +1 [phone] Reason for Referral * Diagnostic Test (Routine) - Closed Specialty Diagnoses / Procedures Referred By Rangel t Referred To Contact Diagnoses Bilateral carotid artery stenosis Procedures Carotid Duplex, Bilateral Herminio Chavez MD [facility] [place] [address] [facility] [address] [place] [address] Referral ID Status Reason Start Date Expiration Date V isits Requested Visits Authorized [id number] Closed Specialty Service Requested 09/05/2022 09/05/2023 1 1 Encounter Details Date Type Department Care Team (Late st Contact Info) Description 09/04/2022 Orders Only Cardiology at [address] [phone] Herminio Chavez MD [facility] [place] [address] Bilateral carotid artery stenosis Social History Tobacco Use Types Packs/Day Years [...] 2:00 PM EDT Office Visit Cardiology at [address] [place] [address] Estiven Raaz MD [facility] [place] [address] documented as of this encounter Results * Carotid Duplex, Bilateral (09/25/2022 1:02 PM EST) VB Text Report Department: Vascular Surgery Lab Patient: [id number] (THANH GONZALEZ) CPT: 09177 Referring Physician: HERMINIO CHAVEZ ?? Indications: Carotid stenosis ? Progression Findings: ICA Proximal, Right ? PSV (cm/s): 136 ? EDV (cm/s): 13 ? ICA/CCA: 2.0 ? Plaque Structure: Echogenic ? Plaque Surface: Irregular ? %Stenosis: 16-49% ICA Distal, Right ? PSV (cm/s): 85 ? EDV (cm/s): 17 ? ICA/CCA: 1.2 CCA Distal, Right ? PSV (cm/s): 69 ? EDV (cm/s): 13 ? %Stenosis: <50% CCA Proximal, Right ? PSV (cm/s): 65 ? EDV (cm/s): 10 External Carotid Artery, Right ? PSV (cm/s): 155 ? EDV (cm/s): 15 ? %Stenosis: <50% Vertebral, Right ? PSV (cm/s): 43 ? EDV (cm/s): 9 ? Direction of Flow: Antegrade ICA Proximal, Left ? PSV (cm/s): 136 ? EDV (cm/s): 11 ? ICA/CCA: 1.1 ? Plaque Structure: Echogenic ? Plaque Surface: Irregular ? %Stenosis: 16-49% ICA Distal, Left ? PSV (cm/s): 92 ? EDV (cm/s): 19 ? ICA/CCA: 0.7 CCA Distal, Left ? PSV (cm/s): 123 ? EDV (cm/s): 19 ? %Stenosis: 16-49% CCA Proximal, Left ? PSV (cm/s): 61 ? EDV (cm/s): 13 External Carotid Artery, Left ? PSV (cm/s): 122 ? EDV (cm/s): 11 ? %Stenosis: <50% ? Direction of Flow: Antegrade Vertebral, Left ? PSV (cm/s): 41 ? EDV (cm/s): 10 Interpretation: RIGHT: There is irregular plaque in the [...] change compared to the exam on 03/01/22. Vertebral Artery Data: Patent vertebral arteries with normal antegrade Doppler waveforms and velocities bilaterally. Previous Carotid Studies: Date ?RIGHT ICA Stenosis [...] 2.00 ? 16-49% ? 136 ?? 1.10 Electronically Signed by: HERMINIO LEMOS on 2022-09-25 01:45:32 PM [facility] VB Text Report End of Report [facility] 09/25/2022 1:02 PM EST Herminio Chavez MD [facility] documented in this encounter Visit Diagnoses Diagnosis Bilateral carotid artery stenosis Occlusion and stenosis of multiple and bilateral precerebral arteries without mention of cerebral infarction documented in this encounter Care Teams Residential Driver Relationship Specialty Start Date End Date Gabby Castaneda APRN [address] [place] [address] [address] [place] [address] PCP - General Family Medicine 07/19/21 04/30/23 documented as of this encounter
--- OUTSIDE RECORDS SUMMARY | 2024-05-02 13:57 | XMS_ITS | Encounter Summary ---
Author Organization [facility] Address [facility] [place] [address] Care Team Providers Care Chocolate Refining Roller Name Role Phone Payam, Loulou Rosa APRN Primary Care Provider +1- [phone] Encounter Details Date Type Department Care Team (Late st Contact Info) Description 05/07/2023 [place] [phone] Frida Poe Social History Tobacco Use Types Packs/Day Years [...] 2:00 PM EDT Office Visit Cardiology at [address] [phone] Estiven Raza MD [facility] [place] [address] documented as of this encounter Visit Diagnoses Not on filedocumented in this encounter Care Teams Chocolate Refining Roller Relationship Specialty Start Date End Date Payam, Loulou Rosa APRN [address] [place] [address] PCP - General Internal Medicine 05/01/23 documented as of this encounter
--- OUTSIDE RECORDS SUMMARY | 2024-05-02 13:57 | XMS_ITS | Encounter Summary ---
Author Organization [facility] [place] [address] Care Team Providers Care Gasoline Attendant Name Role Phone Gabby Castaneda SUDHAKAR Primary Care Provider +1 [phone] Encounter Details Date Type Department Care Team (Late st Contact Info) Description 01/23/2023 Telephone Cardiology at [address] [phone] Aicha Blackwell, RN Social History Tobacco Use [...] Telephone Encounter - Aicha Blackwell RN - 02/01/2023 3:29 PM EDT Patient states she would like her BMP done at [facility], and will get this drawn, next week, afer the 06 of February. Forwarding to vice president medical affairs. Aicha Blackwell (Jodie), RN, BSN Cardiology Ambulatory Clinic * Telephone Encounter - Aicha Blackwell RN - 01/23/2023 9:39 AM EDT TC to Mrs Gonzalez to confirm whether she is taking 20 meq, of potassium, at this time. Left Call back, asking to her to leave a VM, and if she is, let her know Dr Chavez, would like to check her blood Potassium level. Aicha Blackwell (Jodie) RN, BSN Cardiology Ambulatory Clinic documented in this encounter Plan of Treatment Upcoming Encounters Date Type Department Care Team (Late st Contact Info) Description 05/29/2024 2:00 PM EDT Office Visit Cardiology at [address] [address] Estiven Raza MD [facility] [place] [address] documented as of this encounter Visit Diagnoses Not on filedocumented in this encounter Care Teams Gasoline Attendant Relationship Specialty Start Date End Date Gabby Castaneda APRN [address] [place] [address] [address] [place] [address] PCP - General Family Medicine 07/19/21 04/30/23 documented as of this encounter
--- OUTSIDE RECORDS SUMMARY | 2024-05-02 13:57 | XMS_ITS | Encounter Summary ---
Author Organization [facility] [place] [address] Care Team Providers Care Weight Count Operator Name Role Phone Gabby Castaneda SUDHAKAR Primary Care Provider +1 -[phone] Encounter Details Date Type Department Care Team (Late st Contact Info) Description 08/31/2022 Telephone Cardiology at [address] [phone] Aicha Blackwell, RN Social History Tobacco Use [...] Telephone Encounter - Aicha Blackwell RN - 09/01/2022 11:35 AM EST TC to Mrs Gonzalez regarding recommendation from Dr Chavez: She needs to take her 2.5 mg of amlodipine. DJM The patient indicates understanding of these issues and agrees with the plan. Forwarding to schedulers for a follow up with Dr Chavez. Aicha Blackwell (Jodie), RN, BSN Cardiology Ambulatory Clinic * Telephone Encounter - Aicha Blackwell RN - 08/31/2022 1:58 PM EST RTC to Mrs Gonzalez regarding her Blood Pressure readings. Off Amlodipine: 174/94: 160/99: 175/91 The next reading, Mrs Gonzalez states is after taking her Amlodipine 2.5 mg, tablet: 129/69. Off Amlodipine, again: 157/[address] Chavez. Aicha Blackwell (Jodie), RN, BSN Cardiology Ambulatory Clinic documented in this encounter Plan of Treatment Upcoming Encounters Date Type Department Care Team (Late st Contact Info) Description 05/29/2024 2:00 PM EDT Office Visit Cardiology at [address] [address] Estiven Raza MD [facility] [place] [address] documented as of this encounter Visit Diagnoses Not on filedocumented in this encounter Care Teams Weight Count Operator Relationship Specialty Start Date End Date Gabby Castaneda APRN [address] [email or web address] [address] [place] [address] PCP - General Family Medicine 07/19/21 04/30/23 documented as of this encounter
--- OUTSIDE RECORDS SUMMARY | 2024-05-02 13:57 | XMS_ITS | Encounter Summary ---
Author Organization [facility] [address] Care Team Providers Care Electrical Maintenance Man Name Role Phone Gabby Castaneda SUDHAKAR Primary Care Provider +1 -[phone] Encounter Details Date Type Department Care Team (Late st Contact Info) Description 12/26/2022 Telephone [place] [phone] Heidy Escobar RN Social History Tobacco Use Types Packs/Day [...] encounter Miscellaneous Notes * Telephone Encounter - Heidy Escobar RN - 12/26/2022 3:12 PM EDT Call to Thanh. No answer. LMx1 * Telephone Encounter - Heidy Escobar RN - 12/26/2022 2:56 PM EDT Copied from [facility] #[id number]. Topic: Specialty Dept CRMs - Generic Call >> December 25, 2022 2:49 PM Diego Montaño wrote: Specialist: Sam Monzon Relationship (if other than patient-full name): Patient Reason for Call: Patient called stating during her appointment Dr. Monzon asked if her feet were swelling and she stated no. Patient has since changed her mind and would like to let Dr. Monzon know she believes she's retaining fluid in her feet x2 months. She originally thought it may have been herage or weight gain but since he posed the question she now believes it is fluid retention. Please call to advise at [phone]. documented in this encounter Plan of Treatment Upcoming Encounters Date Type Department Care Team (Late st Contact Info) Description 05/29/2024 2:00 PM EDT Office Visit Cardiology at [address] [address] Estiven Raza MD [facility] [place] [address] documented as of this encounter Visit Diagnoses Not on filedocumented in this encounter Care Teams Electrical Maintenance Man Relationship Specialty Start Date End Date Gabby Castaneda APRN [address] [place], [place] [address]Y [facility] 1 [place] [address] PCP - General Family Medicine 07/19/21 04/30/23 documented as of this encounter
--- OUTSIDE RECORDS SUMMARY | 2024-05-02 13:57 | XMS_ITS | Encounter Summary ---
Author Organization [facility] Address [facility] [place] [address] Care Team Providers Care Evaporator Name Role Phone Gabby Castaneda SUDHAKAR Primary Care Provider +1 -[phone] Encounter Details Date Type Department Care Team (Late st Contact Info) Description 09/25/2022 1:00 PM EST Tech [place] [address] Nnamdi Rodriguez Bilateral carotid artery stenosis Social History Tobacco [...] 2:00 PM EDT Office Visit Cardiology at [address] [phone] Estiven Raza MD [facility] [place] [address] documented as of this encounter Procedures Procedure Name Priority Date/Time Associated Diagnosis Comments CAROTID DUPLEX, BILATERAL Routine 09/25/2022 1:02 PM EST Bilateral carotid artery stenosis documented in this encounter Results * Carotid Duplex, Bilateral (09/25/2022 1:02 PM EST) VB Text Report Department: Vascular Surgery Lab Patient: [id number] (THANH GONZALEZ) CPT: 33300 Referring Physician: HERMINIO CHAVEZ ?? Indications: Carotid [...] infarction documented in this encounter Care Teams Evaporator Relationship Specialty Start Date End Date Gabby Castaneda APRN [address] [place] [address] [address] [place] [address] PCP - General Family Medicine 07/19/21 04/30/23 documented as of this encounter
--- OUTSIDE RECORDS SUMMARY | 2024-05-02 13:57 | XMS_ITS | Encounter Summary ---
Author Organization [facility] Address [facility] [place] [address] Care Team Providers Care Customer Service Specialist Name Role Phone Gabby Castaneda SUDHAKAR Primary Care Provider +1 -[phone] Encounter Details Date Type Department Care Team (Late st Contact Info) Description 12/22/2022 10:30 AM EDT Office [place] [phone] Sam Monzon MD [facility] [place] [address] Stage 3 severe COPD by GOLD classification; Ex-smoker Social History Tobacco Use Types Packs/Day Years [...] Sign Reading Time Taken Comments Blood Pressure 139/54 12/22/2022 10:27 AM EDT Pulse 71 12/22/2022 10:27 AM EDT Temperature 36.6 ??C (97.9 ??F) 12/22/2022 10:27 AM E DT Respiratory Rate 18 12/22/2022 10:27 AM EDT Oxygen Saturation 96% 12/22/2022 10:27 AM EDT Inhaled Oxygen Concentration - - Weight 64.9 kg (143 lb) 12/22/2022 10:27 AM EDT Height 152.4 cm (5') 12/22/2022 10:27 AM EDT Body Mass Index 27.93 12/22/2022 10:27 AM EDT documented in this encounter Progress Notes * Sam Monzon MD - 12/22/2022 10:30 AM EDT Pulmonary Follow-Up Visit Date of Encounter: 12/22/22 PCP: Gabby Castaneda, QUARTZ MINER [address] [place] [address] Pulmonary Background: ?? GOLD 3 COPD ?? Ex smoker, quit 2005 - 35 year + smoking history ?? Last hospitalized for COPD exacerbation at [facility], October 2018 Subjective: I saw Thanh Gonzalez in the pulmonary clinic today. Overall she's doing very well. Still dyspneic on exertion with more strenuous activities like walking up hill and vacuuming but no problems with ADLs. No cough or sputum production. Only one exacerbation in last 12 months - COVID-19 (unvaccinatedbut received Paxlovid) - but symptoms were more systemic than pulmonary and imporved back to baseline within a few weeks. Lowest O2 sats probably high 80s on room air with exertion. Has oxygen at home but rarely uses. Stiolto regularly and Duoneb prn working well. Current Outpatient Medications Medication Sig Dispense Refill ??? aspirin EC 81 mg EC (DR) tablet Take 81 mg by mouth daily. ??? amLODIPine (Norvasc) 2.5 mg Tablet Take 1 tablet by mouth daily. 30 tablet 2 ??? Combivent Respimat 20-100 mcg/actuation Mist INHALE 1 PUFF BY MOUTH FOUR TIMES A DAY 4 g 11 ??? alendronate (Fosamax) 70 mg Tablet TAKE 1 TABLET BY MOUTH PER WEEK ??? furosemide (Lasix) 20 mg Tablet Take [...] 5% Adhesive Patch, Medicated Apply topically. ??? nitroGLYcerin (NITROSTAT) 0.4 mg Tablet, Sublingual Place 1 tablet under the tongue every 5 minutes as needed for Chest pain. 5 tablet 0 ??? atorvastatin (LIPITOR) 40 mg Tablet Take [...] muscle daily as needed. 2 each 11 ??? potassium chloride ER (Klor-Con M) 20 mEq ER micro-encapsulated crystal tablet Take 1 tablet bymouth daily. (Patient not taking: Reported on 12/22/2022) 30 tablet 5 ??? albuteroL 90 mcg/actuation HFA Aerosol Inhaler Inhale 2 puffs into the lungs every 4 hours as needed for Wheezing. Use with spacer 1 each 11 ??? triamterene-hydrochlorothiazide (DYAZIDE) 37.5-25 mg Capsule TAKE ONE CAPSULE BY MOUTH EVERY DAY 4 ??? acetaminophen (TYLENOL) 325 mg Tablet Take 650 mg by mouth every 4 hours as needed for Pain. No current facility-administered medications for this visit. Examination: BP 139/54 Pulse 71 Temp 36.6 ??C (97.9 ??F) (Temporal) Resp 18 Ht 152.4 cm (5') Wt 64.9 kg (143 lb) SpO2 96% BMI 27.93 kg/m?? No clubbing, no cyanosis Chest is clear on examination today No significant ankle edema Data Review: Recent data: ?? COVID + February 2022 with other lab tests normal at the time (see media tab for full details). Prior data: ??? Last FEV1 in late 2018 was 45% predicted, similar to previous values ??? Last chest CT October 2018 showed emphysema but no other significant abnormalities Decision Making/Plan: Thanh is overall doing very well and no major changes are needed to her typical routine of Stiolto2 puffs daily and short-acting bronchodilators (either combivent or DuoNeb) as needed. We discussedvaccines for influenza and COVID-19, I recommend these, but for now she has opted not to receive vaccinations. I do encourage early testing and treatment for any pulmonary infections as she has been doing. I think alf prognosis for her COPD very good. Follow-up 2023, sooner if symptoms change Sam Monzon MD documented in this encounter Plan of Treatment Upcoming Encounters Date Type Department Care Team (Late st Contact Info) Description 05/29/2024 2:00 PM EDT Office Visit Cardiology at [address] [phone] Estiven Raza MD [facility] [place] [address] documented as of this encounter Visit Diagnoses Diagnosis Stage 3 severe COPD by GOLD classification Ex-smoker Personal history of tobacco use, presenting hazards to health documented in this encounter Care Teams Customer Service Specialist Relationship Specialty Start Date End Date Gabby Castaneda APRN [address] [place] [address] [address] [facility] 1 [place] [address] PCP - General Family Medicine 07/19/21 04/30/23 documented as of this encounter
--- OUTSIDE RECORDS SUMMARY | 2024-05-02 13:57 | XMS_ITS | Encounter Summary ---
Author Organization [facility] Address [facility] [place] [address] Care Team Providers Care Route Relief Driver Name Role Phone Gabby Castaneda APRN Primary Care Provider +1 -[phone] Encounter Details Date Type Department Care Team (Late st Contact Info) Description 01/11/2023 Orders Only Cardiology at [address] [phone] Dionte Chavez MD [facility] [place] [address] Low blood potassium; Hypertension, unspecified type Social History Tobacco Use Types Packs/Day Years [...] 2:00 PM EDT Office Visit Cardiology at [address] [phone] Estiven Raza MD [facility] [place] [address] documented as of this encounter Visit Diagnoses Diagnosis Low blood potassium Hypopotassemia Hypertension, unspecified type documented in this encounter Care Teams Route Relief Driver Relationship Specialty Start Date End Date Gabby Castaneda APRN [address] [place] [address] PCP - General Family Medicine 07/19/21 04/30/23 documented as of this encounter
--- OUTSIDE RECORDS SUMMARY | 2024-05-02 13:57 | XMS_ITS | Encounter Summary ---
Author Organization [facility] [place] [address] Care Team Providers Care Customs Port Director Name Role Phone Gabby Castaneda SUDHAKAR Primary Care Provider +1 -[phone] Encounter Details Date Type Department Care Team (Late st Contact Info) Description 03/03/2022 Telephone Cardiology at [address] [phone] Aicha Blackwell, RN Social History Tobacco Use [...] Telephone Encounter - Aicha Blackwell RN - 03/03/2022 2:17 PM EDT TC from Mrs Gonzalez regarding results of her Carotid Doppler. Convey message and recommendations from Dr Youngblood, per his message: Please let her know that her carotid disease is unchanged. She has some moderate disease that we are appropriately treating with medication. Thanks. [facility] Mrs Gonzalez states that is good news, and she is appreciative of the phone call. Aicha Blackwell (Jodie), RN, BSN Cardiology Ambulatory Clinic documented in this encounter Plan of Treatment Upcoming Encounters Date Type Department Care Team (Late st Contact Info) Description 05/29/2024 2:00 PM EDT Office Visit Cardiology at [address] [phone] Estiven Raza MD [facility] [place] [address] documented as of this encounter Visit Diagnoses Not on filedocumented in this encounter Care Teams Customs Port Director Relationship Specialty Start Date End Date Gabby Castaneda APRN [address] [place] [address] [address] [facility] 1 [place] [address] PCP - General Family Medicine 07/19/21 04/30/23 documented as of this encounter
--- OUTSIDE RECORDS SUMMARY | 2024-05-02 13:57 | XMS_ITS | Encounter Summary ---
Author Organization [facility] Address [facility] [place] [address] Care Team Providers Care Family Caseworker Name Role Phone Gabby Castaneda APRN Primary Care Provider +1 [phone] Encounter Details Date Type Department Care Team (Latest Contact Info) Description 12/22/2022 Travel Social History Tobacco Use Types Packs/Day [...] 2:00 PM EDT Office Visit Cardiology at [address] [phone] Estiven Raza MD [facility] [place] [address] documented as of this encounter Visit Diagnoses Not on filedocumented in this encounter Care Teams Family Caseworker Relationship Specialty Start Date End Date Gabby Castaneda APRN [address] [place] [address] PCP - General Family Medicine 07/19/21 04/30/23 documented as of this encounter
--- OUTSIDE RECORDS SUMMARY | 2024-05-02 13:57 | XMS_ITS | Encounter Summary ---
Author Organization [facility] Address [facility] [place] [address] Care Team Providers Care Cosmetic Maker Name Role Phone Gabby Castaneda SUDHAKAR Primary Care Provider +1 [phone] Reason for Visit * Reason Onset Date Comments Medication Refill 09/27/2022 Encounter Details Date Type Department Care Team (Late st Contact Info) Description 09/27/2022 Refill Cardiology at [address] [phone] Dionte Chavez MD [facility] [place] [address] Medication Refill Social History Tobacco Use Types Packs/Day Years [...] encounter Miscellaneous Notes * Telephone Encounter - Hillary Reese RN - 09/27/2022 12:05 PM EST JHONNY 07/19/21 08/31/22 telephone note states patient needs to continue amlodipine 2.5 mg daily. F/u: not scheduled yet. Hillary Reese screed person Clinic at [facility] [phone] documented in this encounter Plan of Treatment Upcoming Encounters Date Type Department Care Team (Late st Contact Info) Description 05/29/2024 2:00 PM EDT Office Visit Cardiology at [address] [phone] Estiven Raza MD [facility] [place] [address] documented as of this encounter Visit Diagnoses Diagnosis Hypertension, unspecified type documented in this encounter Care Teams Cosmetic Maker Relationship Specialty Start Date End Date Gabby Castaneda APRN [address] [facility] [facility] [facility] 1 [place] [address] PCP - General Family Medicine 07/19/21 04/30/23 documented as of this encounter
--- OUTSIDE RECORDS SUMMARY | 2024-05-02 13:57 | XMS_ITS | Encounter Summary ---
Author Organization [facility] [place] [address] Care Team Providers Care Group Home Paraprofessional Name Role Phone Gabby Castaneda SUDHAKAR Primary Care Provider +1 [phone] Encounter Details Date Type Department Care Team (Late st Contact Info) Description 08/15/2022 Telephone Cardiology at [address] [phone] Aicha Blackwell, RN Social History Tobacco Use [...] Telephone Encounter - Aicha Blackwell RN - 08/24/2022 9:36 AM EST TC to Mrs Gonzalez and left requesting a return phone call regarding her Blood Pressure readings, off of her Amlodipine 2.5 mg, tablet, QD. Left Call Back number for Cardiology Team RN. Aicha Blackwell (Jodie), RN, BSN Cardiology Ambulatory Clinic * Telephone Encounter - Aicha Blackwell RN - 08/22/2022 10:11 AM EST TC to Mrs Gonzalez regarding her Blood Pressure readings off of Amlodipine, per Dr Chavez's request,prior to possible restart of Amlodipine 2.5 mg, QD. Left VM message requesting call back to Cardiology team RN * Telephone Encounter - Aicha Blackwell RN - 08/15/2022 3:53 PM EST TC to Mrs Gonzalez to convey message and recommendations from Dr Chavez: Dionte Chavez MD sent to Aicha Blackwell RN Caller: Unspecified (Today, ??1:54 PM) I agree. We need to know what her BP is running. She can hold on the amlodipine for the time being. Mrs Gonzalez agrees to record her Blood Pressure readings, and states today her BP reading was 153/83. Asked her to call in 1 week. The patient indicates understanding of these issues and agrees with the plan. Aicha Blackwell RN (Jodie), BSN Cardiology Ambulatory Clinic * Telephone Encounter - Aicha Blackwell RN - 08/15/2022 1:54 PM EST RTC to Mrs Gonzalez who states she would like to ask Dr Chavez if she still needs to take her Amlodipine 2.5 mg. Mrs Gonzalez states she has not been taking her Blood pressure readings and has not takenher Amlodipine in 1 month. Asked Mrs Gonzalez to record her Blood pressures, and let her know her message will be sent to Dr Chavez. Aicha Blackwell RN (Jodie), BSN Cardiology Ambulatory Clinic documented in this encounter Plan of Treatment Upcoming Encounters Date Type Department Care Team (Late st Contact Info) Description 05/29/2024 2:00 PM EDT Office Visit Cardiology at [address] [phone] Estiven Raza MD [facility] [place] [address] documented as of this encounter Visit Diagnoses Not on filedocumented in this encounter Care Teams Group Home Paraprofessional Relationship Specialty Start Date End Date Gabby Castaneda APRN [address] [place] [address] PCP - General Family Medicine 07/19/21 04/30/23 documented as of this encounter
--- OUTSIDE RECORDS SUMMARY | 2024-05-02 13:57 | XMS_ITS | Encounter Summary ---
Author Organization [facility] [place] [address] Care Team Providers Care Resident Programs Assistant Name Role Phone Gabby Castaneda SUDHAKAR Primary Care Provider +1 [phone] Encounter Details Date Type Department Care Team (Late st Contact Info) Description 01/09/2023 Telephone Cardiology at [address] [phone] Aicha Blackwell, RN Social History Tobacco Use [...] Telephone Encounter - Aicha Blackwell RN - 01/09/2023 2:19 PM EDT TC to Ms Gonzalez who states she has not had her labs drawn, yet ,as she forgets to take her Atorvastatin in the afternoon. Let her know she can take her statin at night with her other medications, andjust let us know how long she has taken it when she has her labs drawn. The patient indicates understanding of these issues and agrees with the plan. Aicha Blackwell (Jodie), RN, BSN Cardiology Ambulatory Clinic documented in this encounter Plan of Treatment Upcoming Encounters Date Type Department Care Team (Late st Contact Info) Description 05/29/2024 2:00 PM EDT Office Visit Cardiology at [address] [phone] Estiven Raza MD [facility] [place] [address] documented as of this encounter Visit Diagnoses Not on filedocumented in this encounter Care Teams Resident Programs Assistant Relationship Specialty Start Date End Date Gabby Castaneda, SUDHAKAR [address] [facility] 1 [place] [address] PCP - General Family Medicine 07/19/21 04/30/23 documented as of this encounter
--- OUTSIDE RECORDS SUMMARY | 2024-05-02 13:57 | XMS_ITS | Encounter Summary ---
Author Organization [facility] Address [facility] [place] [address] Care Team Providers Care Freezer Worker Name Role Phone Gabby Castaneda CONTACT CENTER REPRESENTATIVE Primary Care Provider [phone] [phone] Reason for Visit * Reason Onset Date Comments Medication Refill 11/23/2022 Encounter Details Date Type Department Care Team (Late st Contact Info) Description 11/23/2022 Refill Cardiology at [address] [phone] Dionte Chavez MD [facility] [place] [address] Medication Refill Social History Tobacco Use Types [...] Telephone Encounter - Aicha Blackwell RN - 11/23/2022 3:45 PM EDT ot documented in this encounter Plan of Treatment Upcoming Encounters Date Type Department Care Team (Late st Contact Info) Description 05/29/2024 2:00 PM EDT Office Visit Cardiology at [address] [phone] Estiven Raza MD [facility] [place] [address] documented as of this encounter Visit Diagnoses Diagnosis Low blood potassium Hypopotassemia documented in this encounter Care Teams Freezer Worker Relationship Specialty Start Date End Date Gabby Castaneda APRN [address] [place] [address] PCP - General Family Medicine 07/19/21 04/30/23 documented as of this encounter
--- OUTSIDE RECORDS SUMMARY | 2024-05-02 13:57 | XMS_ITS | Encounter Summary ---
Author Organization [facility] Address [facility] [place] [address] Care Team Providers Care Truck Leasing Manager Name Role Phone Gabby Castaneda SUDHAKAR Primary Care Provider [phone] [phone] Encounter Details Date Type Department Care Team (Late st Contact Info) Description 07/03/2022 [place]phone [place] [phone] Nyla Lester Social History Tobacco Use Types Packs/Day Years [...] 2:00 PM EDT Office Visit Cardiology at [address] [phone] Estiven Raza MD [facility] [place] [address] documented as of this encounter Visit Diagnoses Not on filedocumented in this encounter Care Teams Truck Leasing Manager Relationship Specialty Start Date End Date Gabby Castaneda APRN [address] [place] [address] PCP - General Family Medicine 07/19/21 04/30/23 documented as of this encounter
--- OUTSIDE RECORDS SUMMARY | 2024-05-02 13:57 | XMS_ITS | Encounter Summary ---
Author Organization [facility] Address [facility] [place] [address] Care Team Providers Care Rural Carrier Name Role Phone Gabby Castaneda APRN Primary Care Provider [phone] [phone] Encounter Details Date Type Department Care Team (Latest Contact Info) Description 11/21/2022 Travel Social History Tobacco Use Types Packs/Day [...] PM EDT Office Visit Cardiology at [address] [phone] Estiven Raza MD [facility] [place] [address] documented as of this encounter Visit Diagnoses Not on filedocumented in this encounter Care Teams Rural Carrier Relationship Specialty Start Date End Date Gabby Castaneda APRN [address] [place] [address] PCP - General Family Medicine 07/19/21 04/30/23 documented as of this encounter
--- OUTSIDE RECORDS SUMMARY | 2024-05-02 13:57 | XMS_ITS | Encounter Summary ---
Author Organization [facility] Address [facility] [place] [address] Care Team Providers Care Gemologist Name Role Phone Gabby Castaneda SUDHAKAR Primary Care Provider +1 [phone] Encounter Details Date Type Department Care Team (Late st Contact Info) Description 08/03/2022 Telephone [place] [phone] Nyla Lester Social History Tobacco Use Types [...] 2:00 PM EDT Office Visit Cardiology at [address] [phone] Estiven Raza MD [facility] [place] [address] documented as of this encounter Visit Diagnoses Not on filedocumented in this encounter Care Teams Gemologist Relationship Specialty Start Date End Date Gabby Castaneda APRN [address] [place] [address] PCP - General Family Medicine 07/19/21 04/30/23 documented as of this encounter
--- OUTSIDE RECORDS SUMMARY | 2024-05-02 13:57 | XMS_ITS | Encounter Summary ---
Author Organization [facility] [place] [address] Care Team Providers Care Human Resources Recruiter Name Role Phone Gabby Castaneda SUDHAKAR Primary Care Provider +1 [phone] Encounter Details Date Type Department Care Team (Late st Contact Info) Description 03/14/2022 Telephone Cardiology at [address] [phone] Aicha Blackwell, RN Social History Tobacco Use [...] Telephone Encounter - Aicha Blackwell, RN - 03/14/2022 2:14 PM EDT To Mrs gonzalez to verify with her that Dr Chavez stopped both her metoprolol, and lisinopril on 07/19/2022: FROM 07/19/21: CAD: No evidence of active ischemia. On ASA and a statin. She is on 2 diuretics and both very low dose amlodipine and lisinopril. I think we can safely simplify her medical regimen. She will stop her Dyazide and continue with her furosemide. She will stop her lisinopril and continue with her amlodipine. She will start taking her [...] conditioning. She declined a referral to our mobile unit assistant. PAD: Has moderate carotid disease. On ASA plus a statin. Will repeat her carotid du plex when next seen. Medication review updated. Aicha Blackwell (Jodie) RN, BSN Cardiology Ambulatory Clinic documented in this encounter Plan of Treatment Upcoming Encounters Date Type Department Care Team (Late st Contact Info) Description 05/29/2024 2:00 PM EDT Office Visit Cardiology at [address] [phone] Estiven Raza MD [facility] [place] [address] documented as of this encounter Visit Diagnoses Not on filedocumented in this encounter Care Teams Human Resources Recruiter Relationship Specialty Start Date End Date Gabby Castaneda APRN [address] [place] [address] [address] [facility] 1 [place] [address] PCP - General Family Medicine 07/19/21 04/30/23 documented as of this encounter
--- OUTSIDE RECORDS SUMMARY | 2024-05-02 13:57 | XMS_ITS | Clinical Summary ---
Author Organization [facility] [place] [address] Care Team Providers Care Hand Coke Drawer Name Role Phone Payam, Louloubasia Rosa APRN Primary Care Provider +1- [phone] Allergies Active Allergy Reactions Criticality Noted Date Comments Amoxicillin Trihydrate Medium 08/20/2020 Other reaction(s): Diarrhea - Severe Bee Venom Protein (Honey Bee) High 08/20/2020 Other reaction(s): Anaphylaxsis Benzonatate Low 08/20/2020 Other reaction(s): rash Hymenoptera Allergenic Extract Anaphylaxis High 04/30/2018 Unclassified Drug Anaphylaxis High 04/30/2018 Black flies, mosquitos ( SWELLING) Potassium Clavulanate Medium 08/20/2020 Other reaction(s): Diarrhea - Severe Sulfamethoxazole 08/20/2020 Other reaction(s): Itching Tetanus Vaccines And Toxoid 06/17/20 18 Medications Medication Sig Dispensed Refills Start Date End Date Status EPINEPHrine (EPIPEN) 0.3 mg/0.3 mL (1:1,000) injection Inject 0.3 mLs into the muscle daily as needed. 2 each 11 12/31/2013 Active citalopram (CELEXA) 20 mg Tablet TAKE ONE TABLET BY MOUTH EVERY DAY 90 tablet 3 08/07/2014 Active COMBIVENT RESPIMAT 20-100 mcg/actuation Mist INHALE ONE PUFF BY MOUTH FOUR TIMES A DAY 4 Inhaler 08/13/2014 Active Additional Information Patient taking differently: 1 puff Inhalation PRN, Reported on 05/04/2020 LORazepam (ATIVAN) 1 mg TabletIndications:An xiety,Insomnia 1 tab at HS as needed for sleep. May take 1 tab during the day for anxiety if needed. 30 tablet 0 08/25/2014 Active levothyroxine (SYNTHROID) 50 mcg Tablet Take 1 tablet by mouth daily. 90 tablet 3 08/25/2014 Active gabapentin (NEURONTIN) 300 mg Capsule TAKE ONE CAPSULE BY MOUTH EVERY MORNING AND 2 CAPSULES AT BEDTIME 270 capsule 3 02/24/2015 Active atorvastatin (LIPITOR) 40 mg Tablet Take 1 tablet by mouth every evening. 30 tablet 2 03/03/2018 Active acetaminophen (TYLENOL) 325 mg Tablet Take 650 mg by mouth every 4 hours as needed for Pain. Active triamterene-hydrochl orothiazide (DYAZIDE) 37.5-25 mg Capsule TAKE ONE CAPSULE BY MOUTH EVERY DAY 4 01/15/2019 Active nitroGLYcerin (NITROSTAT) 0.4 mg Tablet, SublingualIndication s:Coronary artery disease, angina presence unspecified, unspecified vessel or lesion type, unspecified whether shinnecock or transplanted heart Place 1 tablet under the tongue every 5 minutes as needed for Chest pain. 5 tablet 03/27/2019 Active lidocaine (Lidoderm) 5% Adhesive Patch, Medicated Apply topically. 03/11/2021 Active tiotropium-olodatero L (Stiolto Respimat) 2.5-2.5 mcg/actuation MistIndications:Stag e 2 moderate COPD by GOLD classification Inhale 2 puffs into the lungs daily. 4 g 11 04/08/2021 Active ipratropium-albutero L (Duoneb) 0.5 mg-3 mg(2.5 mg base)/3 mL Solution for NebulizationIndicati ons:Chronic obstructive pulmonary disease, unspecified COPD type Take 0.5 mg by nebulization every 8 hours as needed. Dx: COPD J44.9 270 mL 3 04/26/2021 Active furosemide (Lasix) 20 mg TabletIndications:Co ronary artery disease involving shinnecock coronary artery, unspecified whether angina present, unspecified whether shinnecock or transplanted heart Take 2 tablets by mouth daily. 180 tablet 1 08/31/2021 Active Additional Information Patient taking differently:40 mg Oral DAILY,1 time daily, Reported on 12/29/2021 alendronate (Fosamax) 70 mg Tablet TAKE 1 TABLET BY MOUTH PER WEEK 11/29/2021 Active albuteroL 90 mcg/actuation HFA Aerosol InhalerIndications:A cute exacerbation of chronic obstructive pulmonary disease,Stage 3 severe COPD by GOLD classification Inhale 2 puffs into the lungs every 4 hours as needed for Wheezing. Use with spacer 1 each 12/29/2021 Active Combivent Respimat 20-100 mcg/actuation MistIndications:Stag e 2 moderate COPD by GOLD classification INHALE 1 PUFF BY MOUTH FOUR TIMES A DAY 4 g 11 05/12/2022 Active amLODIPine (Norvasc) 2.5 mg TabletIndications:Hy pertension, unspecified type Take 1 tablet by mouth daily. 30 tablet 2 09/27/2022 Active potassium chloride ER (Klor-Con M) 20 mEq ER micro-encapsulated crystal tabletIndications:Lo w blood potassium Take 1 tablet by mouth daily. 30 tablet 5 11/24/2022 Active Additional Information Patient not taking.Reported on 12/22/2022 aspirin EC 81 mg EC (DR) tablet Take 81 mg by mouth daily. Active Active Problems Patient Care Coordination No te Formatting of this note migh t be different from the original. partner: Apollo khan. 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 Adult ADHD Anxiety COPD (chronic obstructive pulmonary disease) Overview (05/08/2014): D/C'd cigs ~ 2006 p ~ 25 pack-yrs. Hypertension Insomnia Seizure disorder Overview (10/11/2010): Absence seizures Systemic lupus erythematosus Overview (05/08/2014): mild systemic lupus erythematosus. Seen in past by Dr. Sherri Wilson. Resolved Problems Problem Noted Date Diagnosed Date Resolved Date Ankle fracture, right 08/06/20062012 Overview (05/05/2012): Right ankle fracture (2006 s/p open reduction, internal fixation) - removal of hardware scheduled 10/29/07/not documented (2008) Depression 05/08/2014 Immunizations Name Administration Dates Next Due Influenza (Fluzone HD) Trivalent High Dose 05/26 Influenza Adjuvanted (FluAd) Trivalent, PF 65yrs + 05/16/2018 Influenza PF, Split 05/08/2014 Influenza Quadrivalent, Preservative Free 2019,05/26/2019 Influenza Trivalent w/Preservative 04/22/2013, Influenza Vaccine, Whole 06/07/2010 Pneumococcal Polysaccharide (Pneumovax 23) 12/26,05/08/2014 Family History Medical History Relation Comments Diabetes Father Heart Disease Maternal Aunt Heart Failure Maternal Aunt Cancer Maternal Grandmother Asthma Mother Chronic Obstructive Pulmonary Disease Mother Heart Disease Paternal Uncle Relation Status Comments Father Maternal Aunt Maternal Grandmother Mother Paternal Uncle Social History Tobacco Use Types Packs/Day Years [...] on file Sexual Orientation Not on file Last Filed Vital Signs Vital Sign Reading [...] Mass Index 27.93 12/22/2022 10:27 AM EDT Plan of Treatment Upcoming Encounters Date Type Department Care Team (Late st Contact Info) Description 05/29/2024 2:00 PM EDT Office Visit Cardiology at [address] [phone] Estiven Raza MD [facility] [place] [address] Health Maintenance Due Date Last Done Comments CT Colonography 1948 FIT DNA 1948 FIT 1948 Sigmoidoscopy (10 year) with FIT yearly 1948 Sigmoidoscopy 1948 Hepatitis C Screening 1966 Tetanus/Diphtheria/Pertussis Vaccines (1 - Tdap) 11/04/1967 Zoster vaccine (1 of 2) 1998 Advance Directive 11/04/2003 Colonoscopy 03/23/2013 03/23/2008 (See prior EHR) Colorectal Cancer Screening 03/23/2013 Bone Density Scan 2013 Pneumoccocal Vaccine: 65+ (2 of 2 - PCV) 12/26/2017 12/26/2016, 05/08/2014 Covid-19 Vaccine (1 - 2022-2 4 season) 2024 Influenza (Flu) vaccine (1 o f 1 - Influenza standard series) 04/06/2024 05/14/2020, 05/26/2019, 05/26/2019, Additional history exists Breast Cancer screening Discontinued 05/26/20 14, 03/28/2012 (Report in eDH) Procedures Procedure Name Priority Date/Time Associated Diagnosis Comments EXTERNAL MAMMOGRAM RESULT Routine 05/26/2014 from Last 3 Months or Most Recently Relevant to Health Maintenance Results * External Mammogram (05/26/2014) External Mammogram Negative Anatomical Region Laterality Modality Other 05/26/2014 Historical Provider IMG OUTSIDE INTER PRETATION ORDERABLES from Last 3 Months or Most Recently Relevant to Health Maintenance Advance Directives * Full Code (Latest Code Status on File) Date Activated Date Inactivated Comments 03/01/2018 3:33 PM 03/03/2018 2:48 PM Question Answer Comments Does patient have capacity to make decision: Yes Care Teams Hand Coke Drawer Relationship Specialty Start Date End Date Payam, Loulou Rosa APRN [address] [place] [address] PCP - General Internal Medicine 05/01/23
--- OUTSIDE RECORDS SUMMARY | 2024-05-02 13:57 | XMS_ITS | Encounter Summary ---
Author Organization [facility] Address [facility] [place] [address] Care Team Providers Care Cattle Feeder Name Role Phone Gabby Castaneda SUDHAKAR Primary Care Provider [phone] Encounter Details Date Type Department Care Team (Late st Contact Info) Description 06/26/2022 [place] [phone] Nyla Lester Social History Tobacco Use Types [...] PM EDT Office Visit Cardiology at [address] [phone] Estiven Raza MD [facility] [place] [address] documented as of this encounter Visit Diagnoses Not on filedocumented in this encounter Care Teams Cattle Feeder Relationship Specialty Start Date End Date Gabby Castaneda APRN [address] [place] [address] PCP - General Family Medicine 07/19/21 04/30/23 documented as of this encounter
--- OUTSIDE RECORDS SUMMARY | 2024-05-02 13:57 | XMS_ITS | Encounter Summary ---
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 Loulou Hare APRN [address] [place] [address] [facility], [place] Neurology [address] [place] [id number] Referral ID Status Reason Start Date Expiration Date V isits Requested Visits Authorized [id number] Closed Consult, Test & Treat PCP Updated and/or Approved 12/25/2023 06/26/2024 6 6 Encounter Details Date Type Department Care Team (Late st Contact Info) Description 01/03/2024 Transcribe Orders eDH Incoming Referrals [phone] Loulou Hare APRN [address] [place], [place] [id number] Absence epileptic syndrome, not intractable, 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; 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 Social History Tobacco Use Types Packs/Day Years [...] 2:00 PM EDT Office Visit Cardiology at [address] [phone] Estiven Raza MD [facility] [place] [address] Scheduled Referrals Name Type Priority Associated Diagnoses Orde r Schedule Referral to Neurology Outpatient Referral Routine Absence epileptic syndrome, not intractable, 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
--- OUTSIDE RECORDS SUMMARY | 2024-05-02 13:58 | XMS_ITS | Encounter Summary ---
Author Organization [facility] Address [facility] [place] [address] Care Team Providers Care Instrument Checker Name Role Phone John Diaz MD Primary Care Provider [phone] Encounter Details Date Type Department Care Team (Latest Contact Info) Description 12/30/2019 1:00 PM EDT TH Visit (TeleHealth) [place] [address] Sam Monzon MD [facility] [place] [address] Stage 3 severe COPD by GOLD classification Social History Tobacco [...] on file documented as of this encounter Progress Notes * Sam Monzon MD - 12/30/2019 1:00 PM EDT Pulmonary Telehealth Follow-Up Visit This visit replaces an in person visit due to the COVID-19 pandemic. Patient verbally consents to this visit and understands that this visit may be billed, similar to a clinic office visit. Date of Encounter: 12/30/19 PCP: John Diaz MD [address] [place] [address] [address] [facility] 1 [place] [address] Pulmonary Background: ?? GOLD 3 COPD ?? Ex smoker, quit 2005 - 35 year + smoking history ?? Hospitalized for COPD exacerbation at [facility], October 2018 Subjective: Overall Thanh is doing okay. Her moderate exertional dyspnea stable. On a bad day she can get short of breath doing some light yard work but on good days she has been able to walk up fairly steep inclines with few stops. Not much cough or sputum on a regular basis. One exacerbation requiring antibiotics and prednisone in the last few months. She has been at home for most the last few months during the COVID-19 pandemic and has good help from her family for things like shopping and tasks outside of the home. Data Review: ??? Last FEV1 in late 2018 was 45% predicted, similar to previous values Decision Making/Plan: ??? Overall doing well and I think no major changes are required to her regimen. She will use Stiolto 2 puffs daily and albuterol as needed prior to activities. Prednisone and antibiotics from her PCP for exacerbations. Unremarkable CT chest in October 2018 and I think she is really at the end of thetime period during which lung cancer screening might be helpful. I will see her again in the Fall. I provided care to the patient today via telephone call or telehealth video encounter: 15 minutes spent control clerk auditing discussing issues as above, 0 minutes spent in data review, for a total of 15 minutes associated with this encounter. Sam Monzon MD documented in this encounter Plan of Treatment Upcoming Encounters Date Type Department Care Team (Late st Contact Info) Description 05/29/2024 2:00 PM EDT Office Visit Cardiology at [address] [phone] Estiven Raza MD [facility] [place] [address] documented as of this encounter Visit Diagnoses Diagnosis Stage 3 severe COPD by GOLD classification documented in this encounter Care Teams Instrument Checker Relationship Specialty Start Date End Date John Diaz MD [address] [place] [address] PCP - General 12/22/14 07/18/21 documented as of this encounter
--- OUTSIDE RECORDS SUMMARY | 2024-05-02 13:58 | XMS_ITS | Encounter Summary ---
Author Organization [facility] Address [facility] [place] [address] Care Team Providers Care Composition Mixer Name Role Phone John Diaz MD Primary Care Provider [phone] Reason for Visit * Reason Comments Follow-up Encounter Details Date Type Department Care Team (Latest Contact Info) Description 10/17/2018 3:00 PM EDT Office [place] [address] Sam Monzon MD [facility] [place] [address] Stage 2 moderate COPD by GOLD classification [...] Sign Reading Time Taken Comments Blood Pressure 144/44 10/17/2018 2:49 PM EDT Pulse 60 10/17/2018 2:49 PM EDT Temperature - - Respiratory Rate 12 10/17/2018 2:49 PM EDT Oxygen Saturation 94% 10/17/2018 2:49 PM EDT Inhaled Oxygen Concentration - - Weight 67.1 kg (148 lb) 10/17/2018 2:49 PM EDT Height 152.4 cm (5') 10/17/2018 2:49 PM EDT Body Mass Index 28.9 10/17/2018 2:49 PM EDT documented in this encounter Progress Notes * Sam Monzon MD - 10/17/2018 3:00 PM EDT [facility] Section of Pulmonary Medicine COPD Clinic Follow Up Date of Encounter: 10/17/2018 PCP: John Diaz MD [address] [place] [address] Reason for Visit: Follow Up COPD Background: ?? GOLD 2 COPD ?? Ex smoker, quit 2005 - 35 year + smoking history ?? Hospitalized for COPD exacerbation at [facility], October 2018 Interval History: I saw Thanh Gonzalez in the pulmonary clinic today. She attended with her son. We began by reviewing her recent hospitalization Thanh reports insidious onset exertional dyspnea that slowly got worse over the course of a few weeks. It was accompanied by a feeling of tightness in the chest and a cough productive of thick whitesputum. Her breathing got acutely worse one evening and she was taken by ambulance to [facility]. She hada 9-day stay there being discharged approximately October 09. [facility] but Thanh tells me she was tested for the flu and was negative, had a CT scan looking for blood clots that was also negative and was treated with prednisone, antibiotics and oxygen. She was discharged home on oxygen to complete a course of prednisone which she did about a week ago. Since being home she is felt better but she still remains very tired. She is using the nebulizers once or twice a day but stopped using her long-acting bronchodilator. In the run up to the hospitalization the bronchodilator appeared to have been working well. In general she is less short of breath when she takes this. She is not bringing up any sputum at this time. No fevers and chills, no chest pain. Symptom Scoring: CAT Responses 05/16/2018 06/17/2018 Cough 2 1 Phleg/Mucus in chest 2 1 Tightness in chest 1 3 Breathlessness 5 2 Limited doing activities 3 2 Confident leaving home 0 0 Sleep 0 2 Lots of energy 1 2 CAT Scores 14 (Medium) 13 (Medium) Review of Systems: As above in the HPI Past Medical History: Past Medical History: Diagnosis Date ??? Allergic state ??? Arthritis ??? COPD (chronic obstructive pulmonary disease) ??? Former smoker, stopped smoking many years ago quit in 2006, previously 1-2 PPD use ??? Fractures ??? HTN (hypertension) ??? Lung disease ??? Pneumonia ??? Seizures ??? SLE (systemic lupus erythematosus) Past Surgical History: Past Surgical History: Procedure Laterality Date ??? ANKLE FRACTURE SURGERY 2006 ??? CARDIAC CATHERIZATION ??? CREATED BY INTERFACE open reduction, internal fixation-right ankle Procedure Date: 2006 ??? TONSILLECTOMY Medications: Current Outpatient Medications Medication Sig Dispense Refill ??? tiotropium-olodaterol (STIOLTO RESPIMAT) 2.5-2.5 mcg/actuation Mist Inhale 2 puffs into the lungs daily. 4 g 11 ??? predniSONE (DELTASONE) 20 mg Tablet Take 2 tablets by mouth daily. 10 tablet 0 ??? acetaminophen (TYLENOL) 325 mg Tablet Take 650 mg by mouth every 4 hours as needed for Pain. ??? ipratropium-albuterol (DUONEB) 0.5 mg-3 mg(2.5 mg base)/3 mL Solution for Nebulization Take 0.5mg by nebulization every 8 hours as needed. Dx: COPD J44.9 1 [address] ??? amLODIPine (NORVASC) 2.5 mg Tablet Take 1 tablet by mouth daily. 30 tablet 2 ??? atorvastatin (LIPITOR) 40 mg Tablet Take 1 tablet by mouth every evening. 30 tablet 2 ??? nitroGLYcerin (NITROSTAT) 0.4 mg Tablet, Sublingual Place 1 tablet under the tongue every 5 minutes as needed for Chest pain. 25 tablet 3 ??? metoprolol succinate (TOPROL-XL) 25 mg Tablet Sustained Release 24 hr Take 1 tablet by mouth daily. (Patient taking differently: Take 12.5 mg by mouth daily.) 30 tablet 2 ??? aspirin 81 mg Tablet, Delayed Release (E.C.) Take 1 tablet by mouth daily. 30 tablet 3 ??? lisinopril (PRINIVIL;ZESTRIL) 2.5 mg Tablet daily. ??? gabapentin (NEURONTIN) 300 mg Capsule TAKE ONE CAPSULE BY MOUTH EVERY MORNING AND 2 CAPSULES ATBEDTIME 270 capsule 3 ??? hydroxychloroquine (PLAQUENIL) 200 mg Tablet Take 1 tablet by mouth daily. 90 tablet 0 ??? LORazepam (ATIVAN) 1 mg Tablet 1 tab at HS as needed for sleep. May take 1 tab during the day for anxiety if needed. 30 tablet 0 ??? levothyroxine (SYNTHROID) 50 mcg Tablet Take 1 tablet by mouth daily. 90 tablet 3 ??? COMBIVENT RESPIMAT 20-100 mcg/actuation Mist INHALE ONE PUFF BY MOUTH FOUR TIMES A DAY 4 Inhaler 11 ??? citalopram (CELEXA) 20 mg Tablet TAKE ONE TABLET BY MOUTH EVERY DAY (Patient taking differently: TAKE 2 TABLET BY MOUTH EVERY DAY) 90 tablet 3 ??? EPINEPHrine (EPIPEN) 0.3 mg/0.3 mL (1:1,000) injection Inject 0.3 mLs into the muscle daily as needed. 2 each 11 ??? tiotropium-olodaterol (STIOLTO RESPIMAT) 2.5-2.5 mcg/actuation Mist Inhale 2 puffs into the lungs daily. (Patient not taking: Reported on 10/17/2018) 4 g 0 No current facility-administered medications for this visit. Allergies: Hymenoptera allergenic extract; Other [unclassified drug]; and Tetanus vaccines and toxoid Social History: Social History Socioeconomic History ??? Marital status: Spouse name: Not on file ??? Number of children: Not on file ??? Years of education: Not on file ??? Highest education level: Not on file Social Needs ??? Financial resource strain: Not on file ??? Food insecurity - worry: Not on file ??? Food insecurity - inability: Not on file ??? Transportation needs - medical: Not on file ??? Transportation needs - non-medical: Not on file Occupational History Comment: retired Tobacco Use ??? Smoking status: Former Smoker Packs/day: 1.00 Years: 30.00 Pack years: 30.00 Types: Cigarettes Last attempt to quit: 02/16/2005 Years since quittin.6 ??? Smokeless tobacco: Never Used Substance and Sexual Activity ??? Alcohol use: Yes Comment: 1 beer every 2-3 weeks, rare use ??? Drug use: Yes Types: Marijuana Comment: medical marijuana card ??? Sexual activity: Not on file Other Topics Concern ??? Abuse or Threat: [...] Social History Narrative Apr 2012: lives in [place], [place] ([facility]) partner: Apollo Dumont (d. 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 mows lawn, uses weedwhacker Family History: Family History Problem Relation Age of Onset ??? Chronic Obstructive Pulmonary Disease Mother ??? Asthma Mother ??? Diabetes Father ??? Heart Failure Maternal Aunt ??? Heart Disease Maternal Aunt ??? Heart Disease Paternal Uncle ??? Cancer Maternal Grandmother Immunizations: Immunization History Administered Date(s) Administered ??? Influenza PF, Split 05/08/2014 ??? Influenza Vaccine w/Preservative, Split 05/02/2011, 04/22/2013 ??? Influenza Vaccine, Whole 06/07/2010 ??? Influenza, Trivalent, Adjuvanted 05/16/2018 ??? Pneumococcal Polyvalent 23 05/08/2014 Examination: BP 144/44 Pulse 60 Resp 12 Ht 152.4 cm (5') Wt 67.1 kg (148 lb) SpO2 94% BMI 28.90 kg/m?? General: Comfortable at rest HEENT: No cervical lymphadenopathy, no oral thrush Mallampati 2 Resp: Hyperinflated, chest expansion equal Resonant to percussion with vesicular breath sounds throughout CV: S1 + S2 + O Skin: No rash Extremities: No clubbing, no cyanosis, no edema, calves soft and non tender Neurologic: No obvious cranial nerve palsy or limb weakness, normal gait Psych: Normal mood and affect Labs: Lab Results Component Value Date WBC 9.0 03/03/2018 HGB 13.6 03/03/2018 HCT 40.6 03/03/2018 PLATELET 218 03/03/2018 A1AT gentoype: pending Imaging: Available CXR and CT Chest images were viewed personally and reports were reviewed. I agree with the radiology reads. Chest x-ray 2018 Reveals hyperinflation Results for orders placed during the hospital encounter of 02/15/11 XR chest routine PA & lateral Narrative CHEST X-RAY, PA AND LATERAL: REASON FOR STUDY: Shortness of breath. COPD. Rule out infiltrate. PREVIOUS STUDY: None. TECHNIQUE: Chest x-ray, PA and lateral. FINDINGS: Cardiomediastinal silhouette is within normal limits. No effusions. No masses. No focal airspace consolidations. Opacity projecting adjacent to left heart border is likely a fat pad. Impression IMPRESSION: 1. No active cardiopulmonary disease. Film and interpretation reviewed by the attending Pulmonary Function Tests: PFT Results Office Visit from 05/16/2018 in Pulmonology at [place] PFT Results FEV1 (L) 0.95 liters FEV1 (%) 49 FVC (L) 2.55 liters FVC (%) 101 FEF 25-75 (L) 0.21 FEF 25-75 (%) 12 FEV1/FVC (absolute) 0.37 FEV1/FVC (%) 37.3 % Additional PFT Data (if needed) Uncorrected DLCO (ml/min/mm Hg) 11.21 DLCO (%) 59 % TLC (liters) 5.46 liters TLC (%) 132 % FRC (L) 3.57 L FRC (%) 157 % RV (L) 2.87 L RV (%) 181 % RVC/TLC (absolute) 0.53 RV/TLC (%) 52.56 % Interpretation Obstruction, Diffusion impairment, Air trapping (RV/TLC), Ambulatory hypoxia Oxygen saturation 94% on RA at rest 89% on room air after a 600 feet walk. Peak inspiratory flow rate testing revealed patient had adequate minimum inspiratory flow rates to effectively use all inhaler types. Cardiac Testing: Last EKG 2018. Sinus bradycardia QTC 443 ms Last Echocardiogram 2018: 1. Basal septal hypertrophy is observed. There is normal global left ventricular systolic function. The quantitative left ventricular ejection fraction by biplane Medina's method is 73%. There are no left ventricular segmental wall motion abnormalities. 2. Right ventricular chamber size, wall thickness, and systolic function are within normal limits. 3. There is no hemodynamically significant valve disease. Assessment: 1. COPD: GOLD stage 2 category B. This is moderate disease. 2. Former smoker, quit 2006 - 35 year + smoking history GOLD Staging - Airflow FEV1 >80% 1 FEV1 <80% 2 FEV1 <50% 3 FEV1 <30% 4 GOLD Staging - Symptoms Annual Exacerbations CAT <10 CAT >10 0 or 1 A B 2 or more C D Thanh Gonzalez has covered well from her recent COPD exacerbation. She is anxious to know what I think of her CT scan and so I arranged to have her discharge summary faxed to me as well as the images transferred to our system. When I review this data I will give her a call to discuss but I think for now she should restart her Stiolto. We discussed the importance of calling Dr. Diaz or I if she develops these pulmonary symptoms again. I would be happy to start her on prednisone and azithromycin by phone for compatible symptoms of increased cough, shortness of breath and increased sputum. Plan: 1. Medications Daily: Stiolto 2 puffs daily As needed: Albuterol or Combivent 2. Exacerbation prevention Avoid sick contacts, wash hands, wear mask as needed 3. Sick plan Prednisone 40mg for 5 days Azithromycin for 5 days Call our office for medications as needed 4. Sleep evaluation 5. Advanced directives 6. Smoking cessation 7. Pulmonary rehabilitation Practice pursed lip breathing during PT sessions 8. Oxygen 2 liters per minute at night 9. Immunizations Check with Dr Diaz whether you have had PCV-13 (Prevnar 13) 10. Lung cancer screening patient declined 11. LVRS / Transplant 12. Palliative care 13. A1AT Testing await results 14. Other Follow up: 3 months Sam Monzon MD documented in this encounter Plan of Treatment Upcoming Encounters Date Type Department Care Team (Late st Contact Info) Description 05/29/2024 2:00 PM EDT Office Visit Cardiology at [address] [phone] Estiven Raza MD [facility] [place] [address] documented as of this encounter Visit Diagnoses Diagnosis Stage 2 moderate COPD by GOLD classification documented in this encounter Care Teams Composition Mixer Relationship Specialty Start Date End Date John Diaz MD [address] [place] [address] PCP - General 12/22/14 07/18/21 documented as of this encounter
--- OUTSIDE RECORDS SUMMARY | 2024-05-02 13:58 | XMS_ITS | Encounter Summary ---
Author Organization [facility] Address [facility] [place] [address] Care Team Providers Care Splitter Tender Name Role Phone John Diaz MD Primary Care Provider [phone] Encounter Details Date Type Department Care Team (Late st Contact Info) Description 10/05/2018 Ancillary Procedure Radiology Library at [facility] [place] [address] [address] [facility] [place] [address] Social History Tobacco Use Types Packs/Day Years [...] 2:00 PM EDT Office Visit Cardiology at [address] [place] [address] Estiven Raza MD [facility] [place] [address] documented as of this encounter Procedures Procedure Name Priority Date/Time Associated Diagnosis Comments FILM LIBRARY STORAGE ONLY CT CHEST Routine 10/05/2018 12:00 AM EST documented in this encounter Results * Film Library- Storage Only CT Chest (10/05/2018 12:00 AM EST) Narrative MING - 10/22/2018 1:44 PM EDT This exam is auto-finalizing. It's purpose is for storage only. Yasir Mac MD IMG FILM LIBRARY ORD ERABLES [place], [place] documented in this encounter Visit Diagnoses Not on filedocumented in this encounter Care Teams Splitter Tender Relationship Specialty Start Date End Date John Diaz MD [address] [place] [address] PCP - General 12/22/14 07/18/21 documented as of this encounter
--- OUTSIDE RECORDS SUMMARY | 2024-05-02 13:58 | XMS_ITS | Encounter Summary ---
Author Organization [facility] Address [facility] [place] [address] Care Team Providers Care It Support Technician Name Role Phone John Diaz MD Primary Care Provider [phone] Reason for Visit * Reason Comments Follow-up Encounter Details Date Type Department Care Team (Late st Contact Info) Description 06/26/2019 11:00 AM EST Office [place] [address] Sam Monzon MD [facility] [place] [address] Stage 2 moderate COPD by GOLD classification; Ex-smoker; RODRIGUEZ (dyspnea on exertion) Social History Tobacco Use Types Packs/Day Years [...] Sign Reading Time Taken Comments Blood Pressure 122/51 06/26/2019 11:05 AM EST Pulse 57 06/26/2019 11:05 AM EST Temperature 36.6 ??C (97.9 ??F) 06/26/2019 11:[address] Respiratory Rate 18 06/26/2019 11:05 AM EST Oxygen Saturation 99% 06/26/2019 11:05 AM EST Inhaled Oxygen Concentration - - Weight 70.9 kg (156 lb 6.4 oz) 06/26/2019 11:05 AM EST Height 152.5 cm (5' 0.04) 06/26/2019 11:[address] Body Mass Index 30.51 06/26/2019 11:05 AM EST documented in this encounter Progress Notes * Sam Monzon MD - 06/26/2019 11:00 AM EST [facility] Section of Pulmonary Medicine COPD Clinic Follow Up Date of Encounter: 06/26/2019 PCP: John Diaz MD [address] [place] [address] [address] [place] [address] Reason for Visit: Follow Up COPD Background: ?? GOLD 2 COPD ?? Ex smoker, quit 2006 - 35 year + smoking history ?? Hospitalized for COPD exacerbation at [facility], October 2018 Interval History: I saw Thanh Gonzalez in the pulmonary clinic today. She has done really well with her COPD over the past few months. She is using Stiolto 2 puffs daily in the morning and Combivent or nebulizer a few times a day on most days for additional help if needed. She had no exacerbations requiring prednisone or antibiotics since a severe exacerbation that resulted in hospitalization in September 2018. Wespent the bulk of the visit today talking about a sick plan, what to do if she were to get sick andwhat symptoms would prompt starting prednisone and antibiotics. She has had her flu shot this year. Symptom Scoring: CAT Responses 05/16/2018 06/17/2018 Cough 2 1 Phleg/Mucus in chest 2 1 Tightness in chest 1 3 Breathlessness 5 2 Limited doing activities 3 2 Confident leaving home 0 0 Sleep 0 2 Lots of energy 1 2 CAT Scores 14 (Medium) 13 (Medium) Review of Systems: Weight stable, no ankle edema. Past Medical History: Past Medical History: Diagnosis [...] Outpatient Medications Medication Sig Dispense Refill ??? STIOLTO RESPIMAT 2.5-2.5 mcg/actuation Mist INHALE 2 PUFFS INTO THE LUNGS DAILY 4 g 11 ??? triamterene-hydrochlorothiazide (DYAZIDE) 37.5-25 mg Capsule TAKE ONE CAPSULE BY MOUTH EVERY DAY 4 ??? albuterol 90 mcg/actuation HFA Aerosol Inhaler Inhale 2 puffs into the lungs every 4 hours as needed for Wheezing. Use with spacer ??? nitroGLYcerin (NITROSTAT) 0.4 mg Tablet, Sublingual [...] mouth every evening. 30 tablet 2 ??? metoprolol succinate (TOPROL-XL) 25 mg Tablet Sustained Release 24 hr Take 1 tablet by mouth daily. (Patient taking differently: Take 12.5 mg by mouth daily.) 30 tablet 2 ??? lisinopril (PRINIVIL;ZESTRIL) 2.5 mg Tablet daily. [...] ??? Highest education level: Not on file Occupational History Comment: retired Social Needs ??? Financial resource strain: Not on file ??? Food insecurity: Worry: Not on file Inability: Not on file ??? Transportation needs: Medical: Not on file Non-medical: Not on file Tobacco Use ??? Smoking status: Former Smoker Packs/day: 1.00 Years: 30.00 Pack years: 30.00 Types: Cigarettes Last attempt to quit: 02/16/2005 Years since quittin.3 ??? Smokeless tobacco: Never Used Substance and Sexual Activity ??? Alcohol use: Yes Comment: 1 beer every 2-3 weeks, rare use ??? Drug use: Yes Types: Marijuana Comment: medical marijuana card ??? Sexual activity: Not on file Lifestyle ??? Physical activity: Days per week: Not on file Minutes per session: Not on file ??? Stress: Not on file Relationships ??? Social connections: Talks on phone: Not on file Gets together: Not on file Attends latter-day service: Not on file Active member of club or organization: Not on file Attends meetings of clubs or organizations: Not on file Relationship status: Not on file ??? Intimate partner violence: Fear of current or ex partner: Not on file Emotionally abused: Not on file Physically abused: Not on file Forced sexual activity: Not on file Other Topics Concern [...] Social History Narrative Apr 2012: lives in [place], [place] ([facility]) partner: Apollo Dumont (d. 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 EtOH: rare/none 1 dog in home, keeps chickens and a beefalo; raising turkeys for [place]. mows lawn, uses weedwhacker Family History: Family [...] ??? Pneumococcal Polyvalent 23 05/08/2014 Examination: BP 122/51 (BP Location (NBP): Right arm, Patient Position: Sitting, BP Cuff Sizes: Adult (25-34 cm)) Pulse 57 Temp 36.6 ??C (97.9 ??F) (Oral) Resp 18 Ht 152.5 cm (5' 0.04) Wt 70.9 kg (156 lb 6.4 oz) SpO2 99% BMI 30.51 kg/m?? General: Comfortable at rest HEENT: No [...] Office Visit from 05/16/2018 in Pulmonology at [facility] Results FEV1 (L) 0.95 liters FEV1 [...] rates to effectively use all inhaler types. fvc 2.18 (90%) fev1 0.86 (45%) Cardiac Testing: Last EKG 2018. Sinus bradycardia [...] valve disease. Assessment: 1. COPD: GOLD stage 2/3 category B. This is moderate disease. 2. Former smoker, quit 2006 - 35 year + smoking history GOLD Staging - Airflow FEV1 >80% 1 FEV1 <80% 2 FEV1 <50% 3 FEV1 <30% 4 GOLD Staging - Symptoms Annual Exacerbations CAT <10 CAT >10 0 or 1 A B 2 or more C D Thanh Gonzalez continues to do well with her COPD. Her symptoms are improved to stable over the course of the last 6 months and we reviewed her sick plan today. I made no other changes to her regimen. I sent prescriptions for prednisone and antibiotics to her pharmacy and she will fill these and keep in her medicine cabinet. She knows to start medication if she experiences 2 out of 3 of the following symptoms, more cough, more sputum production, more shortness of breath. Plan: 1. Medications Daily: Stiolto 2 puffs daily As needed: Albuterol or Combivent 2. Exacerbation prevention Avoid sick contacts, wash hands, wear mask as needed 3. Sick plan Prednisone 40mg for 5 days Doxycycline 100mg BID for 7 days Prescriptions sent to pharmacy today 4. Sleep evaluation 5. Advanced directives 6. Smoking cessation 7. Pulmonary rehabilitation Practice pursed lip breathing during PT sessions 8. Oxygen 2 liters per minute at night 9. Immunizations Check with Dr Diaz whether you have had PCV-13 (Prevnar 13) 10. Lung cancer screening patient declined 11. LVRS / Transplant 12. Palliative care 13. A1AT Testing 14. Other Follow up: 6 months Sam Monzon MD documented in this encounter Plan of Treatment Upcoming Encounters Date Type Department Care Team (Late st Contact Info) Description 05/29/2024 2:00 PM EDT Office Visit Cardiology at [address] [phone] Estiven Raza MD [facility] [place] [address] documented as of this encounter Visit Diagnoses Diagnosis Stage 2 moderate COPD by GOLD classification Ex-smoker Personal history of tobacco use, presenting hazards to health RODRIGUEZ (dyspnea on exertion) Other dyspnea and respiratory abnormality documented in this encounter Care Teams It Support Technician Relationship Specialty Start Date End Date John Diaz MD [address] [place] [address] PCP - General 12/22/14 07/18/21 documented as of this encounter
--- OUTSIDE RECORDS SUMMARY | 2024-05-02 13:58 | XMS_ITS | Encounter Summary ---
Author Organization [facility] Address [facility] [place] [address] Care Team Providers Care [employer] Name Role Phone Gabby Castaneda APRN Primary Care Provider [phone] Reason for Visit * Reason Onset Date Comments Medication Refill 08/31/2021 Encounter Details Date Type Department Care Team (Late st Contact Info) Description 08/31/2021 Refill Cardiology at [address] [phone] Dionte Chavez MD [facility] [place] [address] Medication Refill Social History Tobacco Use Types [...] 2:00 PM EDT Office Visit Cardiology at [address] [phone] Estiven Raza MD [facility] [place] [address] documented as of this encounter Visit Diagnoses Diagnosis Coronary artery disease involving elem coronary artery, unspecified whether angina present, unspecified whether elem or transplanted heart documented in this encounter Care Teams [employer] Relationship Specialty Start Date End Date Gabby Castaneda APRN [address] [place] [address] PCP - General Family Medicine 07/19/21 04/30/23 documented as of this encounter
--- OUTSIDE RECORDS SUMMARY | 2024-05-02 13:58 | XMS_ITS | Encounter Summary ---
Author Organization [facility] [place] [address] Care Team Providers Care Director Of Leadership Development Name Role Phone John Diaz MD Primary Care Provider [phone] Reason for Visit * Reason Onset Date Comments Advice Only 10/16/2019 covid19 and dome stic travel Encounter Details Date Type Department Care Team (Late st Contact Info) Description 10/16/2019 [place] [address] Melania Diaz, dental technician instructor Only (covid19 and domestic travel) Social History Tobacco Use Types Packs/Day Years [...] encounter Miscellaneous Notes * Telephone Encounter - Melania Diaz RN - 10/16/2019 12:29 PM EDT Thanh called pulmonary clinic today to seek advice about upcoming travel plans to [place], [place]. Sheis concerned about her age and dg of COPD. Her plans are to travel with her children and grandchildren by plane to [place] to spend a few days at [employer] and then various other activities and will be staying in hotels. I reviewed the CDC guidelines for domestic travel as of October 15, 2019: People who are at increasedrisk of severe disease - older adults and those with chronic conditions such as lung disease - should avoid unnecessary plane travel. We discussed general recommendations for keeping herself safe: handwashing especially after touching frequently touched surfaces in public, avoiding indoor close contact with the public, avoiding sick contacts, keeping a distance of 6 feet from people when she is out in public. Suggested that she research if her trip can be postponed/rescheduled to another time, and recommended that she or her family monitory the [facility] website daily for updates as this is a fluid situation. Thanh expressed appreciation for talking through these points and had been thinking it was best for her to cancel these travel plans. She denies other questions or concerns today. Melania Diaz RN, BSN Pulmonary Department 5C Phone: [phone] Pager: [phone] documented in this encounter Plan of Treatment Upcoming Encounters Date Type Department Care Team (Late st Contact Info) Description 05/29/2024 2:00 PM EDT Office Visit Cardiology at [address] [address] Estiven Raza MD [facility] [place] [address] documented as of this encounter Visit Diagnoses Not on filedocumented in this encounter Care Teams Director Of Leadership Development Relationship Specialty Start Date End Date John Diaz MD [address] [facility] [address] [address] PCP - General 12/22/14 07/18/21 documented as of this encounter
--- OUTSIDE RECORDS SUMMARY | 2024-05-02 13:58 | XMS_ITS | Encounter Summary ---
Author Organization [facility] Address [place] [address] Care Team Providers Care Artist Relationship Manager Name Role Phone John Diaz MD Primary Care Provider Reason for Visit * Reason Onset Date Comments Medication Refill 04/25/2021 Duoneb Refill Encounter Details Date Type Department Care Team (Late st Contact Info) Description 04/25/2021 [place] [phone] Sam Monzon MD [facility] [place] [address] Chronic obstructive pulmonary disease, unspecified COPD type Social History Tobacco Use Types Packs/Day [...] PM EDT Office Visit Cardiology at [address] [phone] Estiven Raza MD [facility] [place] [address] documented as of this encounter Visit Diagnoses Diagnosis Chronic obstructive pulmonary disease, unspecified COPD type documented in this encounter Care Teams Artist Relationship Manager Relationship Specialty Start Date End Date John Diaz MD [address] [place] [address] PCP - General 12/22/14 07/18/21 documented as of this encounter
--- OUTSIDE RECORDS SUMMARY | 2024-05-02 13:58 | XMS_ITS | Encounter Summary ---
Author Organization [facility] Address [facility] [place] [address] Care Team Providers Care Rehabilitation Medicine Physician Name Role Phone John Diaz MD Primary Care Provider [phone] Encounter Details Date Type Department Care Team (Late st Contact Info) Description 05/04/2020 10:00 AM EDT Tech [place] [phone] [place], [place] Bilateral carotid artery disease, unspecified type Social History Tobacco Use Types [...] PM EDT Office Visit Cardiology at [address] [phone] Estiven Raza MD [facility] [place] [address] documented as of this encounter Procedures Procedure Name Priority Date/Time Associated Diagnosis Comments CAROTID DUPLEX, BILATERAL Routine 05/04/2020 9:47 AM EDT Bilateral carotid artery disease, unspecified type documented in this encounter Results * Carotid Duplex, Bilateral (05/04/2020 9:47 AM EDT) VB Text Report Department: Vascular Surgery Lab Patient: [id number] (THANH GONZALEZ) CPT: 60307 ICD10: I65.23;I77.9 Referring Physician: HERMINIO CHAVEZ ?? Indications: 69 year old female with bilateral carotid disease, ? progression ICD10 Diagnosis Code: I65.23, I77.9 Findings: ICA Proximal, Right ? PSV (cm/s): 110 ? EDV (cm/s): 19 ? ICA/CCA: 1.4 ? Plaque Structure: Echogenic ? Plaque Surface: Irregular ? %Stenosis: 16-49% ICA Distal, Right ? PSV (cm/s): 62 ? EDV (cm/s): 14 ? ICA/CCA: 0.8 CCA Distal, Right ? PSV (cm/s): 77 ? EDV (cm/s): 14 ? %Stenosis: Minimal CCA Proximal, Right ? PSV (cm/s): 63 ? EDV (cm/s): 10 External Carotid Artery, Right ? PSV (cm/s): 153 ? EDV (cm/s): 7 ? %Stenosis: <50% Vertebral, Right ? PSV (cm/s): 55 ? EDV (cm/s): 10 ? Direction of Flow: Antegrade ICA Proximal, Left ? PSV (cm/s): 164 ? EDV (cm/s): 12 ? ICA/CCA: 1.6 ? Plaque Structure: Echogenic ? Plaque Surface: Irregular ? %Stenosis: 16-49% ICA Distal, Left ? PSV (cm/s): 108 ? EDV (cm/s): 15 ? ICA/CCA: 1.0 CCA Distal, Left ? PSV (cm/s): 103 ? EDV (cm/s): 22 ? %Stenosis: <50% CCA Proximal, Left ? PSV (cm/s): 76 ? EDV (cm/s): 15 External Carotid Artery, Left ? PSV (cm/s): 130 ? EDV (cm/s): 7 ? %Stenosis: <50% Vertebral, Left ? PSV (cm/s): 55 ? EDV (cm/s): 12 ? Direction of Flow: Antegrade Interpretation: RIGHT: There is bulky irregular plaque in [...] ?1.70 ? 16-49% ? 138 ?? 1.00 Current Exam ? 16-49% ? 110 ?? 1.40 ? 16-49% ? 164 ?? 1.60 Electronically Signed by: ZEENAT HOWARD on 2020-05-04 01:22:36 PM [facility] VB Text Report End of Report [facility] 05/04/2020 9:47 AM EDT Herminio Chavez MD VASCULAR ORDERABLES [facility] documented in this encounter Visit Diagnoses Diagnosis Bilateral carotid artery disease, unspecified type documented in this encounter Care Teams Rehabilitation Medicine Physician Relationship Specialty Start Date End Date John Diaz MD [address] [place] [address] PCP - General 12/22/14 07/18/21 documented as of this encounter
--- OUTSIDE RECORDS SUMMARY | 2024-05-02 13:58 | XMS_ITS | Encounter Summary ---
Author Organization [facility] Address [facility] [place] [address] Care Team Providers Care Rotor Blade Installer Name Role Phone John Diaz MD Primary Care Provider [phone] Encounter Details Date Type Department Care Team (Late st Contact Info) Description 02/26/2019 Ancillary Procedure Radiology Library at [facility] [place] [address] John Diaz MD [address] [place] [address] [address] Social History Tobacco Use Types Packs/Day Years [...] PM EDT Office Visit Cardiology at [address] [place] [address] [facility] [place] [address] documented as of this encounter Procedures Procedure Name Priority Date/Time Associated Diagnosis Comments FILM LIBRARY STORAGE ONLY ULTRASOUND STUDY Routine 02/26/2019 12:00 AM EDT documented in this encounter Results * Film Library- Storage Only Ultrasound Study (02/26/2019 12:00 AM EDT) Narrative MIGN - 02/27/2019 5:23 PM EDT This exam is auto-finalizing. It's purpose is for storage only. John Diaz MD IMG FILM LIBRARY ORD ERABLES Performing Organization Address City/State/[place]UST Co de Phone Number [place], [place] documented in this encounter Visit Diagnoses Not on filedocumented in this encounter Care Teams Rotor Blade Installer Relationship Specialty Start Date End Date John Diaz MD [address] [place] [address] PCP - General 12/22/14 07/18/21 documented as of this encounter
--- OUTSIDE RECORDS SUMMARY | 2024-05-02 13:58 | XMS_ITS | Encounter Summary ---
Author Organization [place] [address] Care Team Providers Care Plate Mounter Name Role Phone John Diaz MD Primary Care Provider [phone] Reason for Visit * Reason Comments Follow-up Encounter Details Date Type Department Care Team (Late st Contact Info) Description 03/15/2021 4:00 PM EDT Office [place] [phone] Sid Chowdhury PA [address] [place] [address] Systemic lupus erythematosus, unspecified SLE type, unspecified organ involvement status (Primary Dx); Medication monitoring encounter; Adult ADHD; Other emphysema; Osteopenia, unspecified location Social History Tobacco Use Types Packs/Day Years [...] Sign Reading Time Taken Comments Blood Pressure 112/48 03/15/2021 4:02 PM EDT Pulse 57 03/15/2021 4:02 PM EDT Temperature 36.7 ??C (98 ??F) 03/15/2021 4:02 PM EDT Respiratory Rate 16 03/15/2021 4:02 PM EDT Oxygen Saturation 96% 03/15/2021 4:02 PM EDT Inhaled Oxygen Concentration - - Weight 67 kg (147 lb 9.6 oz) 03/15/2021 4:02 PM EDT Height 152.4 cm (5') 03/15/2021 4:02 PM EDT Body Mass Index 28.83 03/15/2021 4:02 PM EDT documented in this encounter Patient Instructions * Patient Instructions* Sid Chowdhury PA - 03/15/2021 4:00 PM EDT Follow up one year No change HCQ, continue 200mg per day. Labs today. documented in this encounter Progress Notes * Sid Chowdhury PA - 03/15/2021 4:00 PM EDTSummary: lupus Rheumatology Outpatient Note Chart review conducted prior to the visit includes review of PMHx, medications, allergies, and prior office notes. The most pertinent findings are listed below. The Patient History Form was reviewed with the patient, which included review of ROS, social hx, pmhx, famhx, current and prior medications, allergies, IZs, and ADLs. The form is scanned into the patient's chart. History of Present Illness: Thanh Gonzalez is a 70 y.o. female who presents today for evaluation of lupus. Rheum Hx: # SLE - discoid rash, photosensitivity, and possible relationship to her seizures - on hydroxychloroquine 200mg daily - BISI/SSB positive - positive anticardiolipin IgM ab 50 Interval History: Patient continues on hydroxychloroquine 200 mg/day. There is been no pleuritic- like chest pain fevers infectious-like symptoms. She does get pain going down the right leg that is been getting worse. For this pain she had x-rays of her hip and knee this was done at [facility]. She does not know the results. She was put on a medication she does not know the name. Otherwise she reports low-grade arthralgias in her knees without any red warm swollen joints. Review of Systems Constitutional: Negative for anorexia, diaphoresis, fever and weight loss. Respiratory: Negative for chest discomfort, hemoptysis, orthopnea and pleuritic pain. Gastrointestinal: Negative for abdominal discomfort, vomiting, GERD and constipation. HENT: Negative. Psychiatric/Behavioral: Negative for social aversion. Hematologic/Lymphatic: Negative. Allergic/Immunologic: Negative for recurrent infections and immunocompromised state. Musculoskeletal: Negative. Endocrine: Negative for polydipsia, polyphagia, polyuria and Cushingoid appearance. Neurological: Negative for vertigo. Skin: Negative for dry skin, urticaria and blister. Allergies Allergies Allergen Reactions ??? Bee Venom Protein (Honey Bee) Other reaction(s): Anaphylaxsis ??? Hymenoptera Allergenic Extract Anaphylaxis ??? Other [Unclassified Drug] Anaphylaxis Black flies, mosquitos ( SWELLING) ??? Amoxicillin Trihydrate Other reaction(s): Diarrhea - Severe ??? Potassium Clavulanate Other reaction(s): Diarrhea - Severe ??? Sulfamethoxazole Other reaction(s): Itching ??? Tetanus Vaccines And Toxoid ??? Benzonatate Other reaction(s): rash Medications Current Outpatient Medications on File Prior to Visit Medication Sig Dispense Refill ??? Stiolto Respimat 2.5-2.5 mcg/actuation Mist INHALE 2 PUFFS INTO THE LUNGS ONCE DAILY 4 g 11 ??? furosemide (Lasix) 20 mg Tablet Take 1 tablet by mouth daily. 90 tablet 3 ??? triamterene-hydrochlorothiazide (DYAZIDE) 37.5-25 mg Capsule TAKE [...] hr Take 1 tablet by mouth daily. 30 tablet 2 ??? lisinopril (PRINIVIL;ZESTRIL) 2.5 mg Tablet Take 2.5 mg by mouth daily. ??? gabapentin (NEURONTIN) 300 mg Capsule [...] 2 each 11 No current facility-administered medications on file prior to visit. PMHX Patient Active Problem List Diagnosis Code ??? Alopecia L65.9 ??? Osteopenia M85.80 ??? Adult ADHD F90.9 ??? Anxiety F41.9 ??? COPD (chronic obstructive pulmonary disease) J44.9 ??? Hypertension I10 ??? Insomnia G47.00 ??? Seizure disorder G40.909 ??? Systemic lupus erythematosus M32.9 ??? Hypothyroid E03.9 ??? Hx of adenomatous colonic polyps Z86.010 ??? Epidural lipomatosis D17.79 ??? Spinal stenosis of lumbar region with radiculopathy M48.061, M54.16 ??? NSTEMI (non-ST elevated myocardial infarction) I21.4 SurgHX Past Surgical History: Procedure Laterality Date ??? ANKLE FRACTURE SURGERY 2006 ??? CARDIAC CATHERIZATION ??? CREATED BY INTERFACE open reduction, internal fixation-right ankle Procedure Date: 2006 ??? TONSILLECTOMY Physical Examination: BP 112/48 Pulse 57 Temp 36.7 ??C (98 ??F) (Temporal) Resp 16 Ht 152.4 cm (5') Wt 67 kg (147 lb 9.6 oz) SpO2 96% BMI 28.83 kg/m?? Musculoskeletal: No peripheral synovitis erythema warmth noted Patient gets up out of a chair onto the examination table with no difficulty Dentures upper, mild dry mouth Physical Exam Constitutional: General: She is not in acute distress. Appearance: Normal appearance. She is not ill-appearing, toxic-appearing or diaphoretic. HENT: Head: Normocephalic and atraumatic. Right Ear: External ear normal. Left Ear: External ear normal. Nose: Nose normal. Eyes: General: No scleral icterus. Right eye: No discharge. Left eye: No discharge. Conjunctiva/sclera: Conjunctivae normal. Cardiovascular: Heart sounds: No friction rub. No gallop. Pulmonary: Effort: Pulmonary effort is normal. No respiratory distress. Breath sounds: Normal breath sounds. No stridor. No rhonchi. Abdominal: Palpations: Abdomen is soft. Tenderness: There is no guarding or rebound. Musculoskeletal: General: No swelling, tenderness, deformity or signs of injury. Right lower leg: No edema. Left lower leg: No edema. Skin: General: Skin is warm and dry. Findings: No bruising or lesion. Neurological: Mental Status: She is alert and oriented to person, place, and time. Motor: No weakness. Psychiatric: Mood and Affect: Mood normal. Behavior: Behavior normal. Thought Content: Thought content normal. Judgment: Judgment normal. Labs: Component Latest Ref Rng & Units 03/15/2021 B2GPI IgG <=20.0 unit(s) <9.4 B2GPI IgM <=20.0 unit(s) <9.4 Cardiolipin IgG <=14.9 GPL unit(s) <9.4 Cardiolipin IgM <=12.5 MPL unit(s) 132.0 (H) CRP <=4.9 mg/L 4.2 Sed Rate 3 - 46 mm/hr 20 C4 Complement 10 - 40 mg/dL 22 C3 Complement 90 - 180 mg/dL 115 dsDNA Ab <30.0 (Negative) IU/mL <12.3 DAVID Ab Test Result Flag Unit RefValue (A) . . . Antinuclear Ab Test Result Flag Unit RefValue . . . dRVVT <=1.20 IU/mL 0.93 Silica Clotting Time <=1.16 ratio 0.83 Studies: Narrative & Impression EXAMINATION: XR LUMBAR SPINE 2 OR 3 VIEWS (GENERIC) ?? CLINICAL HISTORY: pain radiating down the right leg ? TECHNIQUE: 2 views of the lumbar spine ?? COMPARISON: Lumbar spine MRI 10/11/2017 ?? FINDINGS: Alignment is unremarkable. The vertebral bodies are normal in height. Severe narrowing of the L4-L5 and L5-S1 intervertebral disc spaces associated with endplate sclerosis and marginal osteophytes. Severe bilateral L4-L5 and L5-S1 facet arthropathy. Moderate bilateral SI joint arthropathy. Extensive atherosclerosis of the abdominal aorta and common iliacs. ?? IMPRESSION 1. Severe lower lumbar/lumbosacral degenerative changes. 2. Moderate bilateral SI joint arthropathy. ?? Thank you for letting us participate in the care of this patient. If you are a health care provider and have any questions regarding this report, please contact the number below. For patients who have questions please contact the health landcare officer that requested your imaging first. Impression/Recommendations : Thanh Gonzalez is a 70 y.o. female who presents today with a history of lupus. Repeat testing negative BISI positive SSB positive anticardiolipin IgM, positive in the past. Patient continuing on hydroxychloroquine 200mg per day without complication with mild dry mouth symptoms with recent visit to [facility] for pain radiating down the right leg she had x-rays there. She does describe sciatica-like symptoms. Will obtain x-ray of her lumbar spine further changes pending her clinical course. X-rays discussed with patient patient does not feel she needs further intervention at thistime. Follow-up 6 months sooner for any problems patient in agreement. documented in this encounter Plan of Treatment Upcoming Encounters Date Type Department Care Team (Late st Contact Info) Description 05/29/2024 2:00 PM EDT Office Visit Cardiology at [address] [phone] Estiven Raza MD [facility] [address] documented as of this encounter Procedures Procedure Name Priority Date/Time Associated Diagnosis Comments HC C-REACTIVE PROTEIN Routine 03/15/2021 5:38 PM EDT Systemic lupus erythematosus, unspecified SLE type, unspecified organ involvement status Medication monitoring encounter HC VENIPUNCTURE Routine 03/15/2021 5:38 PM EDT Systemic lupus erythematosus, unspecified SLE type, unspecified organ involvement status Medication monitoring encounter SILICA CLOTTING TIME Routine 03/15/2021 5:38 PM EDT Systemic lupus erythematosus, unspecified SLE type, unspecified organ involvement status Medication monitoring encounter DRVVT Routine 03/15/2021 5:38 PM EDT Systemic lupus erythematosus, unspecified SLE type, unspecified organ involvement status Medication monitoring encounter HC PCH EXTRACTABLE NUCLEAR ANTIGEN Routine 03/15/2021 5:38 PM EDT Systemic lupus erythematosus, unspecified SLE type, unspecified organ involvement status Medication monitoring encounter HC [facility] DNA AB DS ([place]) Routine 03/15/2021 5:38 PM EDT Systemic lupus erythematosus, unspecified SLE type, unspecified organ involvement status Medication monitoring encounter HC BETA 2-GLYCOPROTEIN I Routine 03/15/2021 5:38 PM EDT Systemic lupus erythematosus, unspecified SLE type, unspecified organ involvement status Medication monitoring encounter HC CARDIOLIPIN ANTIBODIES Routine 03/15/2021 5:38 PM EDT Systemic lupus erythematosus, unspecified SLE type, unspecified organ involvement status Medication monitoring encounter HC ESR-SEDIMENTATION RATE, BLOOD Routine 03/15/2021 5:38 PM EDT Systemic lupus erythematosus, unspecified SLE type, unspecified organ involvement status Medication monitoring encounter HC COMPLEMENT,C3 SERUM Routine 03/15/2021 5:38 PM EDT Systemic lupus erythematosus, unspecified SLE type, unspecified organ involvement status Medication monitoring encounter HC COMPLEMENT C4, PLASMA Routine 03/15/2021 5:38 PM EDT Systemic lupus erythematosus, unspecified SLE type, unspecified organ involvement status Medication monitoring encounter HC PCH ANATITRE (ANDPATTERN) Routine 03/15/2021 5:38 PM EDT Systemic lupus erythematosus, unspecified SLE type, unspecified organ involvement status Medication monitoring encounter documented in this encounter Results * XR Lumbar Spine 2 Or 3 Views (Generic) (03/15/2021 5:57 PM EDT) Anatomical Region Laterality Modality L-spine N/A Digital Radiogra phy Impressions 03/16/2021 9:22 AM EDT 1. ??Severe lower lumbar/lumbosacral degenerative changes. 2. ??Moderate bilateral SI joint arthropathy. Thank you for letting us participate in the care of this patient. ??If you are a health care provider and have any questions regarding this report, please contact the number below. ??For patients who have questions please contact the health landcare officer that requested your imaging first. ? Narrative 03/16/2021 9:22 AM EDT EXAMINATION: XR LUMBAR SPINE 2 OR 3 VIEWS (GENERIC) CLINICAL HISTORY: pain radiating down the right leg TECHNIQUE: 2 views of the lumbar spine COMPARISON: Lumbar spine MRI 10/11/2017 FINDINGS: Alignment is unremarkable. The vertebral bodies are normal in height. Severe narrowing of the L4-L5 and L5-S1 intervertebral disc spaces associated with endplate sclerosis and marginal osteophytes. Severe bilateral L4-L5 and L5-S1 facet arthropathy. Moderate bilateral SI joint arthropathy. Extensive atherosclerosis of the abdominal aorta and common iliacs. Procedure Note Bryan Betancourt MD - 03/16/2021 EXAMINATION: XR LUMBAR SPINE 2 OR 3 VIEWS (GENERIC) CLINICAL HISTORY: pain radiating down the right leg TECHNIQUE: 2 views of the lumbar spine COMPARISON: Lumbar spine MRI 10/11/2017 FINDINGS: Alignment is unremarkable. The vertebral bodies are normal in height.Severe narrowing of the L4-L5 and L5-S1 intervertebral disc spaces associatedwith endplate sclerosis and marginal osteophytes. Severe bilateral L4-L5 andL5-S1 facet arthropathy. Moderate bilateral SI joint arthropathy. Extensive atherosclerosis of the abdominal aorta and common iliacs. IMPRESSION 1. Severe lower lumbar/lumbosacral degenerative changes. 2. Moderate bilateral SI joint arthropathy. Thank you for letting us participate in the care of this patient. If youare a health care provider and have any questions regarding this report,please contact the number below. For patients who have questions please contactthe health landcare officer that requested your imaging first. Wojciech Bridges MD IMG DX ORDERABLES * Silica Clotting Time (03/15/2021 5:38 PM EDT) [facility] Silica Clotting Time 0.83 <=1.16 ratio [facility] Comment: A result greater than 1.16 TR is consistent with the presence of lupus anticoagulant. Values of 1.16 to 1.24 in this assay are not definitively positive or negative for the presence of a lupus anticoagulant. The SCT ratio may be falsely elevated in patients on anticoagulants, especially heparins and direct oral anticoagulants. An abnormal test result in an anticoagulated patient must therefore be interpreted with caution, and repeat testing after discontinuing anticoagulation may be appropriate. Blood 03/15/2021 5:38 PM EDT 03/15/2021 5:44 PM EDT Narrative Resulting Agency Comment Spec In Lab Sid [facility] ORDERABL ES Performing Organization Address [facility] de Phone Number [facility] [place] [address] * dRVVT (03/15/2021 5:38 PM EDT) [facility] dRVVT 0.93 <=1.20 IU/mL [facility] Comment: A result greater than 1.20 TR is consistent with the presence of lupus anticoagulant. Values of 1.20 to 1.30 in this assay are not definitively positive or negative for the presence of a lupus anticoagulant. The DRVVT ratio may be falsely elevated in patients on anticoagulants, especially heparins and direct oral anticoagulants. An abnormal test result in an anticoagulated patient must therefore be interpreted with caution, and repeat testing after discontinuing anticoagulation may be appropriate. Blood 03/15/2021 5:38 PM EDT 03/15/2021 5:44 PM EDT Narrative Resulting Agency Comment Spec In Lab Sid [facility] ORDERABL ES Performing Organization Address [facility] [place] [facility] de Phone Number [facility] [place] [address] * Beta-2 glycoprotein antibodies (03/15/2021 5:38 PM EDT) Pathologist [facility] Beta 2 Glycoprotein, IgG <9.4 <=20.0 unit(s) [facility] Beta 2 Glycoprotein, IgM <9.4 <=20.0 unit(s) [facility] Blood 03/15/2021 5:38 PM EDT 03/16/2021 7:33 AM EDT Narrative Resulting Agency Comment Spec In Lab Wojciech Bridges MD IMMUNOLOGY ORDERABLE S Performing Organization Address [facility] [place] [facility] Co de Phone Number [facility] [place] [address] * (ABNORMAL) Cardiolipin Antibody Screen (03/15/2021 5:38 PM EDT) Cardiolipin Antibody IgG <9.4 <=14.9 GPL unit(s) [facility] Comment: Ranges ?? GPL ------ ?? --- Negative ?? <=14.9 Indeterminate ??15.0 - 20.0 Low/Medium Positive 20.1 - 80.0 High Positive ??>80.0 Cardiolipin Antibody IgM 132.0(H) <=12.5 MPL unit(s) [facility] Comment: Ranges ?? MPL ------ ?? --- Negative ?? <=12.5 Indeterminate ??12.6 - 20.0 Low/Medium Positive 20.1 - 80.0 High Positive ??>80.0 Blood 03/15/2021 5:38 PM EDT 03/16/2021 7:33 AM EDT Narrative Resulting Agency Comment Spec In Lab Wojciech Bridges MD IMMUNOLOGY ORDERABLE S Performing Organization Address [facility] [place] [facility] Co de Phone Number [facility] [place] [address] * CRP, acute inflammation (03/15/2021 5:38 PM EDT) C-Reactive Protein 4.2 <=4.9 mg/L [facility] Blood 03/15/2021 5:38 PM EDT 03/15/2021 5:44 PM EDT Narrative Resulting Agency Comment Spec In Lab Wojciech Bridges MD CHEMISTRY ORDERABLES Performing Organization Address [facility] [place] [facility] Co de Phone Number [facility] [place] [address] * Sedimentation rate (03/15/2021 5:38 PM EDT) Pathologist [facility] Sedimentation Rate Automated 20 3 - 46 mm/hr [facility] Comment: Effective July 16, 2019 new capillary photometric technology has resulted in a change in reference ranges. It is recommended that each ESR result be reviewed with its own age appropriate reference range. Blood 03/15/2021 5:38 PM EDT 03/15/2021 5:44 PM EDT Narrative Resulting Agency Comment Spec In Lab Wojciech Bridges MD HEMATOLOGY ORDERABLE S Performing Organization Address City/[facility] [place] [facility]/ZIP Co de Phone Number [facility] [place] [address] * C4 Complement (03/15/2021 5:38 PM EDT) [facility] Complement C4 22 10 - 40 mg/dL [facility] Blood 03/15/2021 5:38 PM EDT 03/15/2021 5:43 PM EDT Narrative Resulting Agency Comment Spec In Lab Wojciech Bridges MD CHEMISTRY ORDERABLES Performing Organization Address [facility] [place] [facility] Co de Phone Number [facility] [place] [address] * C3 Complement (03/15/2021 5:38 PM EDT) Complement C3 115 90 - 180 mg/dL [facility] Blood 03/15/2021 5:38 PM EDT 03/15/2021 5:43 PM EDT Narrative Resulting Agency Comment Spec In Lab Wojciech Bridges MD CHEMISTRY ORDERABLES Performing Organization Address [facility] Co de Phone Number [facility] [place] [address] * DNA Antibody (Double-Stranded) (03/15/2021 5:38 PM EDT) Pathologist [facility] dsDNA Ab <12.3 <30.0 (Negative) IU/mL [facility] Comment: Negative for dsDNA antibody by enzyme immunoassay. No further testing recommended. Test Performed by: [facility] [address] [place] [address] Manager Educational: Wojciech Knox M.D. Ph.D.; CLIA# [id number] Blood 03/15/2021 5:38 PM EDT 03/16/2021 8:28 AM EDT Narrative Resulting Agency Comment Spec In Lab Wojciech Bridges MD LAB SEND OUT ORDERAB LES [facility] [place] [address] * (ABNORMAL) Extractable Nuclear Antigen (DAVID) Ab (03/15/2021 5:38 PM EDT) [facility] DAVID Ab Test ?Result ? Flag ??Unit ??RefValue Ab to Extractable Nuclear Ag Eval,S ??SS-A/Ro Ab, IgG, S ?<0.2 ? U ? <1.0 (Negative) ??SS-B/La Ab, IgG, S ?4.3 ? H ?U ? <1.0 (Negative) ?Interpretation : Positive (>=1.0) ??Sm Ab, IgG, S ? <0.2 ? U ? <1.0 (Negative) ??STEAM HAMMER OPERATOR Ab, IgG, S ?<0.2 ? U ? <1.0 (Negative) ??Scl 70 Ab, IgG, S ? <0.2 ? U ? <1.0 (Negative) ??Madiha 1 Ab, IgG, S ? <0.2 ? U ? <1.0 (Negative) ?Test Performed by: ?[facility] ?[address] [place] [address] ?Manager Educational: Wojciech Knox M.D. Ph.D.; CLIA# [id number] ([id number]) [facility] Blood 03/15/2021 5:38 PM EDT 03/16/2021 8:28 AM EDT Narrative Resulting Agency Comment Spec In Lab Wojciech Bridges MD LAB SEND OUT ORDERAB LES [facility] [place] [address] * BISI (03/15/2021 5:38 PM EDT) BISI Ab Screen Test ?Result ? Flag ??Unit ??RefValue Antinuclear Ab, HEp-2 ? <1:80 (Negative) ? <1:80 (Negative) ??Substrate, S ? ADDITIONAL INFORMATION --------- ?Method: Immunofluorescence using HEp-2 cellular substrate. ?Test Performed by: ?[facility] ?[address] [place] [address] ?Manager Educational: Wojciech Knox M.D. Ph.D.; CLIA# [id number] [facility] Blood 03/15/2021 5:38 PM EDT 03/16/2021 8:28 AM EDT Narrative Resulting Agency Comment Spec In Lab Wojciech Bridges MD LAB SEND OUT ORDERAB LES [facility] [place] [address] documented in this encounter Visit Diagnoses Diagnosis Systemic lupus erythematosus, unspecified SLE type, unspecified organ involvement status- Primary Medication monitoring encounter Encounter for therapeutic drug monitoring Adult ADHD Attention deficit disorder with hyperactivity Other emphysema Osteopenia, unspecified location Systemic lupus erythematosus, unspecified SLE type, unspecified organ involvement status documented in this encounter Care Teams Plate Mounter Relationship Specialty Start Date End Date John Diaz MD [address] [place] [address] PCP - General 12/22/14 07/18/21 documented as of this encounter
--- OUTSIDE RECORDS SUMMARY | 2024-05-02 13:58 | XMS_ITS | Encounter Summary ---
Author Organization [facility] Address [facility] [place] [address] Care Team Providers Care Supervisor Beam Department Name Role Phone John Diaz MD Primary Care Provider [phone] Encounter Details Date Type Department Care Team (Late st Contact Info) Description 12/27/2020 10:00 AM EDT Office Visit Cardiology at [address] [phone] Dionte Chavez MD [facility] [place] [address] Dizziness Social History Tobacco Use Types Packs/Day Years [...] Sign Reading Time Taken Comments Blood Pressure 115/60 12/27/2020 10:09 AM EDT Pulse 59 12/27/2020 10:09 AM EDT Temperature - - Respiratory Rate - - Oxygen Saturation 97% 12/27/2020 10: 09 AM EDT Inhaled Oxygen Concentration - - Weight 68.4 kg (150 lb 11.2 oz) 12/27/2020 10:09 AM EDT Height 152.4 cm (5') 12/27/2020 10:09 AM EDT patient reported Body Mass Index 29.43 12/27/2020 10:09 AM EDT documented in this encounter Patient Instructions * Patient Instructions* Dionte Chavez MD - 12/27/2020 10:00 AM EDT Your heart is doing just fine. Continue with your current medications. I suggest trying the oxygen to see if it helps. Call me with any concerns. I will see you back in 8 months. documented in this encounter Progress Notes * Dionte Chavez MD - 12/27/2020 10:00 AM EDT SUBJECTIVE: 70 y.o. woman being seen for a CC of CAD and RODRIGUEZ. Patient Active Problem List Diagnosis ??? NSTEMI (non-ST elevated myocardial infarction) ??? Epidural lipomatosis ??? Spinal stenosis of lumbar region with radiculopathy ??? Hx of adenomatous colonic polyps 03/23/08: [...] Dr. Sherri Wilson. ??? Osteopenia DXA 12/2006 [facility] LS SPINE T SCORE -1.4; Left [...] Types: Cigarettes Quit date: 02/16/2005 Years since quittin.8 ??? Smokeless tobacco: Never Used Vaping Use ??? Vaping Use: Never used [...] Social History Narrative Apr 2012: lives in [place], [place] ([facility]) partner: Apollo Dumont (d. 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 EtOH: rare/none 1 dog in home, keeps chickens and a beefalo; raising turkeys for Thanksgiving. mows lawn, uses weedwhacker Social Determinants of Health Financial Resource Strain: ??? Difficulty of Paying Living Expenses: Food Insecurity: ??? Worried About Running Out of Food in the Last Year: ??? Ran Out of Food in the Last Year: Transportation Needs: ??? Lack of Transportation (Medical): ??? Lack of Transportation (Non-Medical): Physical Activity: ??? Days of Exercise per Week: ??? Minutes of Exercise per Session: Current Outpatient Medications Medication Sig Dispense Refill ??? furosemide (Lasix) 20 mg Tablet Take [...] daily as needed. 2 each 11 ??? Stiolto Respimat 2.5-2.5 mcg/actuation Mist INHALE 2 PUFFS INTO THE LUNGS ONCE DAILY 4 g 11 No current facility-administered medications for this [...] PT. Today she reports a use of Hemp Oil/MCT Oil for help with her breathlessness. She did use this the morning of her [place]. She has continued to use it and finds that it causes transient chest pain and SOB that last for 5-10 minutes. If she does not take this medication she does not experience these symptoms.) (FROM 05/04/20: No serious intercurrent illnesses. Taking all her medications as prescribed and notes no side effects. Still limited by RODRIGUEZ. Followed here by Pulmonary. No orthopnea, PND, ankle edema,palpitations, presyncope/syncope, chest pain or pressures. Can carry on her ADLs but finds it difficult to go for short walks.) FROM 12/27/20: Seen 12/13/20 by of Pulmonary who thought her pulmonary pathology/funnctional status was minimally changed by did suggest using supplemental oxygen with ambulation which might help with her chronic RODRIGUEZ. Continues to be limited by RODRIGUEZ. Thinks it is a bit worse than when last seen. She wonders if it is her anxiety about being SOB versus actually being SOB. No chest pains or pressures with exertion. No orthopnea or PND. NO palpitations, presyncope or syncope. No recent falls. Can do chores around the house (e.g., cooking, cleaning, wash floors). Does not go down the basement stairs. Can walk through a grocery store for 2 hours as long as she is holding onto a grocery cart. Taking and tolerating her medications. Not using oxygen. No cigarettes. Has a treadmill but notusing it on a regular basis. Weight stable but clearly overweight. No cough, wheezing, sputum production. ROS: The patient denies or endorses (+): [...] or heat intolerance PHYSICAL EXAM Blood pressure 115/60, pulse 59, height 152.4 cm (5'), weight 68.4 kg (150 lb 11.2 oz), SpO2 97 %. Middle aged woman looking slightly older [...] normal antegrade Doppler waveforms and velocities bilaterally. EKG 12/27/20 which I personally reviewed: Sinus [...] advancing the furosemide to 20 mg QD.) FROM 12/27/20: CAD: No evidence of active ischemia. [...] conditioning. She declined a referral to our needle punch machine operator. Time was spent in a face to face conversation with the patient (and accompanying family members, ifpresent) regarding my impressions and recommendations and providing counseling. All questions were answered to the patient's (and accompanying family's, if present) satisfaction. I will plan to see the patient back in follow-up in 8 months. documented in this encounter Plan of Treatment Upcoming Encounters Date Type Department Care Team (Late st Contact Info) Description 05/29/2024 2:00 PM EDT Office Visit Cardiology at [address] [phone] Estiven Raza MD [facility] [place] [address] documented as of this encounter Procedures Procedure Name Priority Date/Time Associated Diagnosis Comments EKG 12-LEAD Routine 12/27/2020 10:12 AM EDT Dizziness documented in this encounter Results * EKG 12 Lead (12/27/2020 10:12 AM EDT) Ventricular rate 57 BPM MUSE SYSTEM Atrial Rate 57 BPM MUSE SYSTEM P-R Interval 126 ms MUSE SYSTEM QRS Duration 68 ms MUSE SYSTEM Q-T Interval 462 ms MUSE SYSTEM QTC Calculated (Bezet) 449 ms MUSE SYSTEM Calculated P [place] 78 degrees MUSE SYSTEM Calculated R [place] 77 degrees MUSE SYSTEM Calculated T [place] 83 degrees MUSE SYSTEM INTERPRETATION Sinus bradycardia with Premature atrial complexes Otherwise normal ECG When compared with ECG of 04-MAY-2020 08:55, Premature atrial complexes are now Present Confirmed by Cornelio Hunt ([id number]) on 12/28/2020 7:25:11 AM MUSE SYSTEM 12/27/2020 10:1 2 AM EDT 12/28/2020 7:25 AM EDT Dionte Chavez MD ECG ORDERABLES OCEAN GATE SYSTEM documented in this encounter Visit Diagnoses Diagnosis Dizziness Dizziness and giddiness documented in this encounter Care Teams Supervisor Beam Department Relationship Specialty Start Date End Date John Diaz MD [address] [place] [address] PCP - General 12/22/14 07/18/21 documented as of this encounter
--- OUTSIDE RECORDS SUMMARY | 2024-05-02 13:58 | XMS_ITS | Encounter Summary ---
Author Organization [facility] [place] [address] Care Team Providers Care Lead Software Tester Name Role Phone John Diaz MD Primary Care Provider [phone] Reason for Visit * Reason Onset Date Comments Triage 02/22/2021 Encounter Details Date Type Department Care Team (Late st Contact Info) Description 02/22/2021 Telephone [place] [phone] Binh Bell RN Triage Social History Tobacco Use Types Packs/Day Years [...] encounter Miscellaneous Notes * Telephone Encounter - Binh Bell RN - 02/22/2021 3:01 PM EDT Patient updated and advised to follow up with PCP until evaluated at [facility]. * Telephone Encounter - Binh Bell RN - 02/22/2021 2:59 PM EDT Images from the original note were not included. Sid Chowdhury, Binh Tobin RN Caller: Unspecified (Today, ??8:25 AM) - no recent labs - pt should follow up with PCP until re-evaluation here. * Telephone Encounter - Binh Bell RN - 02/22/2021 10:43 AM EDT Caller: Patient Relationship: Self Clarified Two Patient Identifiers: [x] Reason For Call: mouth sores Assessment/Symptom Review (onset, location, duration, what makes it better or worse, pertinent positives and negatives): Patient calls regarding mouth sores, previous provider no longer here. Has been stable for years. Hx Lupus Has cold sores to mouth, to lip. Also sores inside mouth. Hurts gums. Eating has become difficult. Notes having no teeth on bottom. Sores appeared a few days ago. Used mouthwash, but that burned. No fever or chills No c/p. Some sob, hx copd, stable. Does note coughs, clears sputum. No n/v. Adequate fluid intake. No joint pain. No rashes. Mentions upping medication, on plaquenil, used to take two tabs, has decreased to one tab, primary has been filling medication. Has appt in March with SHARONDA Chowdhury. Advised patient will update, if symptoms persist or worsen, should contact PCP, expressed understanding. Review of Systems Related to Reason for Call: System POS NEG Not Applicable Head (ENT /Neuro) [x] [] [] Cardiac [] [x] [] Respiratory [] [x] [] GI [] [x] [] [] [x] [] Musculoskeletal [] [x] [] Integumentary [] [x] [] Mental Health [] [x] [] documented in this encounter Plan of Treatment Upcoming Encounters Date Type Department Care Team (Late st Contact Info) Description 05/29/2024 2:00 PM EDT Office Visit Cardiology at [address] [phone] Estiven Raza MD [facility] [place] [address] documented as of this encounter Visit Diagnoses Not on filedocumented in this encounter Care Teams Lead Software Tester Relationship Specialty Start Date End Date John Diaz MD [address] [facility] 1 [place] [address] PCP - General 12/22/14 07/18/21 documented as of this encounter
--- OUTSIDE RECORDS SUMMARY | 2024-05-02 13:58 | XMS_ITS | Encounter Summary ---
Author Organization [facility] Address [facility] [place] [address] Care Team Providers Care Accounts Receivable Assistant Name Role Phone John Diaz MD Primary Care Provider [phone] Encounter Details Date Type Department Care Team (Late st Contact Info) Description 06/18/2018 Telephone [place] [phone] Corby Pang, RN Social History Tobacco Use Types Packs/Day [...] PM EDT Office Visit Cardiology at [address] [phone] Estiven Raza MD [facility] [place] [address] documented as of this encounter Visit Diagnoses Not on filedocumented in this encounter Care Teams Accounts Receivable Assistant Relationship Specialty Start Date End Date John Diaz MD [address] [place] [address] PCP - General 12/22/14 07/18/21 documented as of this encounter
--- OUTSIDE RECORDS SUMMARY | 2024-05-02 13:58 | XMS_ITS | Encounter Summary ---
Author Organization [facility] Address [facility] [place] [address] Care Team Providers Care Field Operations Technician Name Role Phone John Diaz MD Primary Care Provider [phone] Reason for Visit * Reason Onset Date Comments Other 12/03/2020 Sick call Encounter Details Date Type Department Care Team (Late st Contact Info) Description 12/03/2020 Telephone [place] [phone] Esther Joaquin RN Other (Sick call) Social History Tobacco Use Types Packs/Day Years [...] encounter Miscellaneous Notes * Telephone Encounter - Esther Joaquin RN - 12/03/2020 5:17 PM EDT Pt is calling today with concerns of increased SOB. Pt tells me over the past week she has been feeling SOB, dizzy, and finds she is having difficulty walking. Pt states that yesterday when she walked up a hill she experienced dizziness, she leaned over to roll picker some trash and got so dizzy that she rolled over on her side'. Pt states she did not hit her head and there are no injuries to report. She has a finger oximeter at home, while at rest O2 ~94% RA. I had her walk around and it sustained ~90-94%, no dizziness. After she sat down it when down to ~88%, she became SOB. It took less that a minute to come back up to 94%. Pt denies any fevers, chest pain, n/v/d, n/t in extremities. 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 She tells me that this has been happening lately I'll be in the middle of a conversation and Ill just forget what I'm talking about. We discussed her daily weight monitoring, Pt is on lasix. Pt was unaware she should be weighing herself daily. I explained post void weights inthe AM and she denies any swelling in the lower or upper extremities. Pt is requesting ABX today, however, last OV notes states to refer to PCP for sick plan medications. Pt was ok with calling PCP after this conversation for after hours help. Otherwise, P[facility]. Pt also agrees to call her [employer] Programs Director first thingMonday morning to schedule her over due follow up, I did stress the importance of this. I have informed pt that I will request an appointment and home O2 eval with Dr. Monzon. I told her I will be calling her next week to coordinate these follow ups. Pt verbally agrees to this plan, her Son Carlos Enrique was present for the entirety of this conversation as well. Pt did not have any other questions or concerns for me at this time. Esther Joaquin RN Department of Pulmonary 5C, [facility] / Pager: [phone] documented in this encounter Plan of Treatment Upcoming Encounters Date Type Department Care Team ([facility] Contact Info) Description 05/29/2024 2:00 PM EDT Office Visit Cardiology at [address] [phone] Estiven Raza MD [facility] [place] [address] documented as of this encounter Visit Diagnoses Not on filedocumented in this encounter Care Teams Field Operations Technician Relationship Specialty Start Date End Date John Diaz MD [address] [facility] 1 [place] [address] PCP - General 12/22/14 07/18/21 documented as of this encounter
--- OUTSIDE RECORDS SUMMARY | 2024-05-02 13:58 | XMS_ITS | Encounter Summary ---
Author Organization [facility] Address [facility] [place] [address] Care Team Providers Care Legal Editor Name Role Phone John Diaz MD Primary Care Provider [phone] Encounter Details Date Type Department Care Team (Late st Contact Info) Description 05/19/2021 3:00 PM EDT [place] [address] Sam Monzon MD [facility] [place] [address] Stage 2 moderate COPD by GOLD classification; RODRIGUEZ (dyspnea on exertion); Stage 3 severe COPD by GOLD classification; [...] Sign Reading Time Taken Comments Blood Pressure 128/59 05/19/2021 2:27 PM EDT Pulse 56 05/19/2021 2:27 PM EDT Temperature 36.5 ??C (97.7 ??F) 05/19/2021 2:27 PM ED T Respiratory Rate 24 05/19/2021 2:27 PM EDT Oxygen Saturation 96% 05/19/2021 2:27 PM EDT Inhaled Oxygen Concentration - - Weight 66.3 kg (146 lb 3.2 oz) 05/19/2021 2:27 P M EDT Height 152.4 cm (5') 05/19/2021 2:27 PM EDT Body Mass Index 28.55 05/19/2021 2:27 PM EDT documented in this encounter Progress Notes * Sam Monzon MD - 05/19/2021 3:00 PM EDT Pulmonary Follow-Up Visit Date of Encounter: 05/19/21 PCP: John Diaz MD [address] [place] [address] [address] [place] [address] Pulmonary Background: ?? GOLD 3 COPD ?? Ex smoker, quit 2005 - 35 year + smoking history ?? Hospitalized for COPD exacerbation at [facility], October 2018 Subjective: I saw Thanh back in the pulmonary clinic today. She attended with her son. Patient states she is done really quite well over the last year or so. Stable exertional dyspnea with oxygen saturations that might fall to around 88 or 89 with vigorous activity around the home but quickly returned to the 90s. She does have supplemental oxygen but uses it only at night. Not taking much exercise at present. No exacerbations requiring prednisone or antibiotics and no hospital or urgent care visits. Medications are affordable and effective. She has not yet had a COVID-19 vaccination. Current Outpatient Medications Medication Sig Dispense Refill ??? ipratropium-albuteroL (Duoneb) 0.5 mg-3 mg(2.5 mg base)/3 mL Solution for Nebulization Take 0.5mg by nebulization every 8 hours as needed. Dx: COPD J44.9 270 mL 3 ??? tiotropium-olodateroL (Stiolto Respimat) 2.5-2.5 mcg/actuation Mist Inhale 2 puffs into the lungs daily. 4 g 11 ??? lidocaine (Lidoderm) 5% Adhesive Patch, Medicated Apply topically. ??? furosemide (Lasix) 20 mg Tablet Take 1 tablet by mouth daily. 90 tablet 3 ??? triamterene-hydrochlorothiazide (DYAZIDE) 37.5-25 mg Capsule TAKE ONE CAPSULE BY MOUTH EVERY DAY 4 ??? albuterol 90 mcg/actuation HFA Aerosol Inhaler Inhale 2 puffs into the lungs every 4 hours as needed for Wheezing. Use with spacer ??? acetaminophen (TYLENOL) 325 mg Tablet Take 650 mg by mouth every 4 hours as needed for Pain. ??? amLODIPine (NORVASC) 2.5 mg Tablet Take [...] MOUTH EVERY DAY) 90 tablet 3 ??? nitroGLYcerin (NITROSTAT) 0.4 mg Tablet, Sublingual Place 1 tablet under the tongue every 5 minutes as needed for Chest pain. (Patient not taking: Reported on 05/19/2021) 5 tablet 0 ??? EPINEPHrine (EPIPEN) 0.3 mg/0.3 mL (1:1,000) injection Inject 0.3 mLs into the muscle daily as needed. (Patient not taking: Reported on 05/19/2021) 2 each 11 No current facility-administered medications for this visit. Examination: BP 128/59 Pulse 56 Temp 36.5 ??C (97.7 ??F) Resp 24 Ht 152.4 cm (5') Wt 66.3 kg (146 lb 3.2 oz) SpO2 96% BMI 28.55 kg/m?? No clubbing, no cyanosis Chest is clear on examination today with no wheeze or crackles No significant ankle edema We walked approximately 400 feet today with one stop. Oxygen saturations 94% on room air at rest falling to 85% on room air after 200 feet on each occasion Data Review: ??? Last FEV1 in late 2018 was 45% predicted, similar to previous values ??? Last chest CT October 2018 showed emphysema but no other significant abnormalities Decision Making/Plan: Thanh is really doing very well and no major changes are needed. I have recently renewed her Stiolto but will renew her Combivent today Medication ordered or changed during this encounter, will not show discontinued medications Medications ??? ipratropium-albuteroL (Combivent Respimat) 20-100 mcg/actuation Mist Sig: Inhale 1 puff into the lungs 4 times daily for 360 days. Dispense: 1 each Refill: 11 We discussed the use of oxygen with regular exercise. She has a treadmill at home and I think usingthis either every day or 3 to 4 days a week at a very slow pace while wearing supplemental oxygen would be a great intervention. Her family is supportive of this. We did discuss COVID-19 vaccination. She has been reluctant to get vaccinated, and when I asked whythat was she said my son could tell you, he knows about all this stuff. We discussed a few thingsrelated to COVID-19 vaccination with the villalpando messages as follows ?? I strongly recommend COVID-19 vaccination is the best thing Thanh could do to protect herself against serious infection and decrease morbidity and mortality of others in her community ?? COVID-19 vaccinations are safe and fully FDA approved Follow-up 2021, sooner if symptoms change Sam Monzon MD documented in this encounter Plan of Treatment Upcoming Encounters Date Type Department Care Team (Late st Contact Info) Description 05/29/2024 2:00 PM EDT Office Visit Cardiology at [address] [phone] Estiven Raza MD [facility] [place] [address] documented as of this encounter Visit Diagnoses Diagnosis Stage 2 moderate COPD by GOLD classification RODRIUGEZ (dyspnea on exertion) Other dyspnea and respiratory abnormality Stage 3 severe COPD by GOLD classification Ex-smoker Personal history of tobacco use, presenting hazards to health documented in this encounter Care Teams Legal Editor Relationship Specialty Start Date End Date John Diaz MD [address] [place] [address] PCP - General 12/22/14 07/18/21 documented as of this encounter
--- OUTSIDE RECORDS SUMMARY | 2024-05-02 13:58 | XMS_ITS | Encounter Summary ---
Author Organization [facility] Address [facility] [place] [address] Care Team Providers Care Machine Molder Name Role Phone John Diaz MD Primary Care Provider [phone] Encounter Details Date Type Department Care Team (Latest Contact Info) Description 03/15/2021 5:45 PM EDT - 03/15/2021 11:59 PM EDT Hospital Encounter XRay at [address] [place] [address] Wojciech Bridges MD [facility] [place] [address] Systemic lupus erythematosus, unspecified SLE type, unspecified organ involvement status Discharge Disposition: Home Social History Tobacco Use Types Packs/Day Years [...] on file documented as of this encounter Medications at Time of Discharge Medication Sig Dispensed Refills Start Date End Date lidocaine (Lidoderm) 5% Adhesive Patch, Medicated Apply topically. 03/11/2021 triamterene-hydrochlor othiazide (DYAZIDE) 37.5-25 mg Capsule TAKE ONE CAPSULE BY MOUTH EVERY DAY 4 01/15/2019 nitroGLYcerin (NITROSTAT) 0.4 mg Tablet, SublingualIndications: Coronary artery disease, angina presence unspecified, unspecified vessel or lesion type, unspecified whether pokagon or transplanted heart Place 1 tablet under the tongue every 5 minutes as needed for Chest pain. 5 tablet 03/27/2019 acetaminophen (TYLENOL) 325 mg Tablet Take 650 mg by mouth every 4 hours as needed for Pain. atorvastatin (LIPITOR) 40 mg Tablet Take 1 tablet by mouth every evening. 30 tablet 2 03/03/2018 gabapentin (NEURONTIN) 300 mg Capsule TAKE ONE CAPSULE BY MOUTH EVERY MORNING AND 2 CAPSULES AT BEDTIME 270 capsule 3 02/24/2015 LORazepam (ATIVAN) 1 mg TabletIndications:Anxi ety,Insomnia 1 tab at HS as needed for sleep. May take 1 tab during the day for anxiety if needed. 30 tablet 0 08/25/2014 levothyroxine (SYNTHROID) 50 mcg Tablet Take 1 tablet by mouth daily. 90 tablet 3 08/25/2014 COMBIVENT RESPIMAT 20-100 mcg/actuation Mist INHALE ONE PUFF BY MOUTH FOUR TIMES A DAY 4 Inhaler 11 08/13/2014 citalopram (CELEXA) 20 mg Tablet TAKE ONE TABLET BY MOUTH EVERY DAY 90 tablet 3 08/07/2014 EPINEPHrine (EPIPEN) 0.3 mg/0.3 mL (1:1,000) injection Inject 0.3 mLs into the muscle daily as needed. 2 each 12/31/2013 Stiolto Respimat 2.5-2.5 mcg/actuation MistIndications:Stage 2 moderate COPD by GOLD classification INHALE 2 PUFFS INTO THE LUNGS ONCE DAILY 4 g 06/21/2020 04/08/2021 furosemide (Lasix) 20 mg Tablet Take 1 tablet by mouth daily. 90 tablet 3 06/15/2020 06/22/2021 albuterol 90 mcg/actuation HFA Aerosol Inhaler Inhale 2 puffs into the lungs every 4 hours as needed for Wheezing. Use with spacer 12/29/2021 ipratropium-albuterol (DUONEB) 0.5 mg-3 mg(2.5 mg base)/3 mL Solution for NebulizationIndication s:Chronic obstructive pulmonary disease, unspecified COPD type Take 0.5 mg by nebulization every 8 hours as needed. Dx: COPD J44.9 1 Box 4 03/04/2018 04/25/2021 amLODIPine (NORVASC) 2.5 mg Tablet Take 1 tablet by mouth daily. 30 tablet 2 03/04/2018 09/27/2022 metoprolol succinate (TOPROL-XL) 25 mg Tablet Sustained Release 24 hr Take 1 tablet by mouth daily. 30 tablet 2 03/03/2018 03/14/2022 lisinopril (PRINIVIL;ZESTRIL) 2.5 mg Tablet Take 2.5 mg by mouth daily. 07/03/2017 03/14/2022 hydroxychloroquine (PLAQUENIL) 200 mg Tablet Take 1 tablet by mouth daily. 90 tablet 0 02/12/2015 07/19/2021 documented as of this encounter Plan of Treatment Upcoming Encounters Date Type Department Care Team (Late st Contact Info) Description 05/29/2024 2:00 PM EDT Office Visit Cardiology at [address] [address] Estiven Raza MD [facility] [place] [place] [address] documented as of this encounter Procedures Procedure Name Priority Date/Time Associated Diagnosis Comments XR LUMBAR SPINE 2 OR 3 VIEWS Routine 03/15/2021 5:57 PM EDT Systemic lupus erythematosus, unspecified SLE type, unspecified organ involvement status documented in this encounter Results * XR [...] who have questions please contact the health personal care service provider that requested your imaging first. ? Electronically signed by: Bryan Betancourt MD, [facility] ([phone]), at 03/16/2021 9:22 AM Narrative 03/16/2021 9:22 AM EDT EXAMINATION: XR [...] patients who have questions please contactthe health personal care service provider that requested your imaging first. Electronically signed by: Bryan Betancourt MD, [facility]([phone]), at 03/16/2021 9:22 AM Wojciech Bridges MD IMG DX ORDERABLES documented in this encounter Visit Diagnoses Diagnosis Systemic lupus erythematosus, unspecified SLE type, unspecified organ involvement status documented in this encounter Care Teams Machine Molder Relationship Specialty Start Date End Date John Diaz MD [address] [place] [address] PCP - General 12/22/14 07/18/21 documented as of this encounter
--- OUTSIDE RECORDS SUMMARY | 2024-05-02 13:58 | XMS_ITS | Encounter Summary ---
Author Organization [facility] Address [place] [address] Care Team Providers Care Machine Clothing Man Name Role Phone John Diaz MD Primary Care Provider [phone] Encounter Details Date Type Department Care Team (Latest Contact Info) Description 06/26/2019 10:15 AM EST - 06/26/2019 11:59 PM EST Hospital Encounter [place] [phone] Chronic obstructive pulmonary disease, unspecified COPD type Discharge Disposition: Home Social History Tobacco Use [...] Sig Dispensed Refills Start Date End Date triamterene-hydrochlor othiazide (DYAZIDE) 37.5-25 mg Capsule TAKE ONE CAPSULE BY MOUTH EVERY DAY 4 01/15/2019 nitroGLYcerin (NITROSTAT) 0.4 mg Tablet, SublingualIndications: Coronary artery disease, angina presence unspecified, unspecified vessel or lesion type, unspecified whether chenega or transplanted heart Place 1 tablet under [...] daily as needed. 2 each 11 12/31/2013 predniSONE (DELTASONE) 20 mg TabletIndications:Stag e 2 moderate COPD by GOLD classification Take 2 tablets by mouth daily for 5 days. 10 tablet 1 06/26/2019 07/01/2019 doxycycline (ADOXA) 100 mg TabletIndications:Stag e 2 moderate COPD by GOLD classification Take 1 tablet by mouth 2 times daily for 7 days. 14 tablet 1 06/26/2019 07/03/2019 STIOLTO RESPIMAT 2.5-2.5 mcg/actuation MistIndications:Stage 2 moderate COPD by GOLD classification INHALE 2 PUFFS INTO THE LUNGS DAILY 4 g 11 06/11/2019 06/21/2020 albuterol 90 mcg/actuation HFA Aerosol Inhaler Inhale [...] 02/12/2015 07/19/2021 documented as of this encounter Procedure Notes * Abhinav Garcia MD - 06/26/2019 11:59 PM ESTAssociated Order(s): PULMONARY FUNCTION TEST FVC within normal limits. FEV1, FEV1/FVC are low. IMPRESSION: Obstructive lung disease. documented in this encounter Plan of Treatment Upcoming Encounters Date Type Department Care Team (Late st Contact Info) Description 05/29/2024 2:00 PM EDT Office Visit Cardiology at [address] [address] Estiven Raza MD [facility] [place] [address] documented as of this encounter Procedures Procedure Name Priority Date/Time Associated Diagnosis Comments COMMON PULMONARY FUNCTION TEST Routine 06/26/2019 11:59 PM EST Chronic obstructive pulmonary disease, unspecified COPD type documented in this encounter Results * Pulmonary Function Testing (06/26/2019 11:59 PM EST) Narrative Abhinav Garcia MD - 06/26/2019 11:59 PM EST Abhinav Garcia MD ? 07/04/2019 ??3:18 PM FVC within normal limits. FEV1, FEV1/FVC are low. IMPRESSION: Obstructive lung disease. Sam Monzon MD PFT ORDERABLES documented in this encounter Visit Diagnoses Diagnosis Chronic obstructive pulmonary disease, unspecified COPD type documented in this encounter Care Teams Machine Clothing Man Relationship Specialty Start Date End Date John Diaz MD [address] [place] [address] PCP - General 12/22/14 07/18/21 documented as of this encounter
--- OUTSIDE RECORDS SUMMARY | 2024-05-02 13:58 | XMS_ITS | Encounter Summary ---
Author Organization [facility] Address [facility] [place] [address] Care Team Providers Care Manager Ethics Name Role Phone John Diaz MD Primary Care Provider [phone] Encounter Details Date Type Department Care Team (Late st Contact Info) Description 03/11/2021 Ancillary Procedure Radiology Library at [facility] [place] [address] John Diaz MD [address] [place] [address] [id number] Social History Tobacco Use Types Packs/Day Years [...] PM EDT Office Visit Cardiology at [address] [place] [address] Estiven Raza MD [facility] [place] [address] documented as of this encounter Procedures Procedure Name Priority Date/Time Associated Diagnosis Comments FILM LIBRARY STORAGE ONLY DX KNEE Routine 03/11/2021 12:00 AM EDT documented in this encounter Results * Film Library- Storage Only DX Knee (03/11/2021 12:00 AM EDT) Narrative [facility] - 03/21/2021 4:52 PM EDT This exam is auto-finalizing. It's purpose is for storage only. John Diaz MD IMG FILM LIBRARY ORD ERABLES [place], [place] documented in this encounter Visit Diagnoses Not on filedocumented in this encounter Care Teams Manager Ethics Relationship Specialty Start Date End Date John Diaz MD [address] [place] [address] PCP - General 12/22/14 07/18/21 documented as of this encounter
--- OUTSIDE RECORDS SUMMARY | 2024-05-02 13:58 | XMS_ITS | Encounter Summary ---
Author Organization [facility] Address [facility] [place] [address] Care Team Providers Care Digital Campaign Manager Name Role Phone John Diaz MD Primary Care Provider [phone] Encounter Details Date Type Department Care Team (Latest Contact Info) Description 10/29/2018 2:00 PM EDT Office [place] [address] Jaleesa Sawyer MD [facility] [place] [address] Systemic lupus erythematosus with other organ involvement, unspecified SLE type Social History Tobacco Use Types Packs/Day [...] Sign Reading Time Taken Comments Blood Pressure 125/42 10/29/2018 2:05 PM EDT Pulse 56 10/29/2018 2:05 PM EDT Temperature 36.9 ??C (98.4 ??F) 10/29/2018 2:05 PM ED T Respiratory Rate - - Oxygen Saturation 99% 10/29/2018 2:05 PM EDT Inhaled Oxygen Concentration - - Weight 68.7 kg (151 lb 6.4 oz) 10/29/2018 2:05 P M EDT Height 152.4 cm (5') 10/29/2018 2:05 PM EDT Body Mass Index 29.57 10/29/2018 2:05 PM EDT documented in this encounter Progress Notes * Jaleesa Sawyer MD - 10/29/2018 2:00 PM EDT Rheumatology Outpatient Follow-up Note Rheum Hx: # SLE - discoid rash, photosensitivity, and possible relationship to her seizures - on hydroxychloroquine 200mg daily - BISI/SSB positive - positive anticardiolipin IgM ab 50 - previously followed by Dr. Wilson # Spinal stenosis History of Present Illness: Thanh Gonzalez is a 67 y.o. female with COPD, CKD, HTN, hypothyroid, and seizure disorder, and SLEwho presents today in f/u. Two weeks ago was in [facility] for a COPD exacerbation, for which she received antibiotics and prednisone - still tapering the prednisone. She had significant SOB. She is feeling better. Feels that her hoarse is hoarse. Is planning to see ENT. Being on the prednisone has not made the hoarseness better. Spinal stenosis continues to bother her while she is driving. Left shoulder may bother her as well,and it helps to raise her arm above her head and behind her head which helps. Thanh remains on plaquenil 200mg daily. Needs to see an eye doctor. ROS: No fevers/chills No mouth sores No ocular sxs - increased blurry vision Has had a rash across upper abdomen which is dry and flaky. Did see her PCP for this. +chronic diarrhea No sxs Otherwise negative Patient's medications, allergies, past medical, surgical, social and family histories were reviewedand updated as appropriate. Problem list: Patient Active Problem List Diagnosis Code ??? [...] ??? NSTEMI (non-ST elevated myocardial infarction) I21.4 Family Hx: Daughter has hypothyroid (-)RA, (-)lupus, (-)scleroderma, (-)sjogren's, (-)gout, (-)psoriasis, (-)MS Social History: Lives in [place], [place]. She has 5 children. She has 3 grandchildren. She has 2 children who live in [place]. She has 3 of her boys who live with her. Tobacco - quit 10 years ago Etoh - has a beer once in a while Drugs - none Physical Examination: BP 125/42 Pulse 56 Temp 36.9 ??C (98.4 ??F) Ht 152.4 cm (5') Wt 68.7 kg (151 lb 6.4 oz) SpO2 99% BMI 29.57 kg/m?? General: AAOx3, NAD HEENT: Mucous membranes are moist, no oral mucosal ulcerations, geographic tongue. Neck: Supple, no lymphadenopathy Cardiovascular: RRR, (-)murmurs, rubs, or gallops. Lungs: Diminished air movement bilaterally. No wheezing. Abdomen: Soft, nontender, nondistended, normal active bowel sounds. Neuro: Alert and oriented x3. Normal gait. Telangiectasias and spider angiomas on palms with palmar erythema. Dry macular clearing rash on upper abdomen. Mostly left sided but does cross the midline. Looks like it was previously papular. Extremities: Shoulders: FROM, non-tender to palpation. Left without swelling. +mildly positive empty can on left. Neg dick. AC joint nontender. Some upper arm tenderness with external rotation and putting the left arm behind her back. Elbows:FROM, (-)pain, (-)nodules Wrists: FROM, no swelling, non-tender Hands: No synovitis, no MCP compression tenderness, full claw and fist. Right 5th PIP flexion contracture, a few heberdens. Hips: FROM Knees: (-)effusions, non-tender ROM Ankles: FROM, non-tender, no swelling Laboratory Data: Lab Results Component Value Date WBC 9.0 03/03/2018 HGB 13.6 03/03/2018 HCT 40.6 03/03/2018 MCV 89.6 03/03/2018 PLATELET 218 03/03/2018 Lab Results Component Value Date NA 141 04/02/2018 K 3.9 04/02/2018 CL 100 04/02/2018 CO2 27 04/02/2018 BUN 13 04/02/2018 CREATININE 1.08 04/02/2018 GLUCOSE 102 04/02/2018 GLUCFASTING 103 (H) 03/03/2018 CALCIUM 9.4 04/02/2018 ESTGFR 52 (L) 04/02/2018 Lab Results Component Value Date ALT 14 07/10/2017 AST 16 07/10/2017 ALKPHOS 66 07/10/2017 BILITOT 0.3 07/10/2017 BILIDIR 0.1 12/22/2014 ALBUMIN 3.8 07/10/2017 PROT 6.8 07/10/2017 Lab Results Component Value Date SEDRATE 9 04/30/2018 Studies: Reviewed CTA Chest from [facility] from Thanh's admission last month. - no PE, +emphysema MRI lumbar spine from October 2017 - [facility] djd L4-5 and L5-12. Mild neural foraminal narrowing at L5-S1 bilat. Eidural lipomatosis causing severe narrowing of the central canal from the L4 -5 through S1 levels. Impression: Thanh Gonzalez is a 67 y.o. female with COPD, hx of seizures, hypothyroid, NSTEMI from vasospasm, and SLE who presents today in f/u. Recovering from recent COPD exacerbation. SLE appears stable at this time. Recommendations: - continue plaquenil 200mg daily - yearly eye exam - SLE labs when feeling better - in a week or two. - f/u in 6 months for SLE CC: John Diaz MD documented in this encounter Plan of Treatment Upcoming Encounters Date Type Department Care Team (Late st Contact Info) Description 05/29/2024 2:00 PM EDT Office Visit Cardiology at [address] [phone] Estiven Raza MD [facility] [place] [address] documented as of this encounter Visit Diagnoses Diagnosis Systemic lupus erythematosus with other organ involvement, unspecified SLE type documented in this encounter Care Teams Digital Campaign Manager Relationship Specialty Start Date End Date John Diaz MD [address] [place] [address] PCP - General 12/22/14 07/18/21 documented as of this encounter
--- OUTSIDE RECORDS SUMMARY | 2024-05-02 13:58 | XMS_ITS | Encounter Summary ---
Author Organization [facility] Address [facility] [place] [address] Care Team Providers Care Aix Architect Name Role Phone John Diaz MD Primary Care Provider [phone] Reason for Visit * Reason Onset Date Comments Medication Refill 04/08/2021 Stiolto Rx Encounter Details Date Type Department Care Team (Late st Contact Info) Description 04/08/2021 [place] [phone] Sam Monzon MD [facility] [place] [address] Stage 2 moderate COPD by GOLD classification [...] 2:00 PM EDT Office Visit Cardiology at [address] [phone] Estiven Raza MD [facility] [place] [address] documented as of this encounter Visit Diagnoses Diagnosis Stage 2 moderate COPD by GOLD classification documented in this encounter Care Teams Aix Architect Relationship Specialty Start Date End Date John Diaz MD [address] [place] [address] PCP - General 12/22/14 07/18/21 documented as of this encounter
--- OUTSIDE RECORDS SUMMARY | 2024-05-02 13:58 | XMS_ITS | Encounter Summary ---
Author Organization [facility] Address [facility] [place] [address] Care Team Providers Care Registered Nurse Cardiac Name Role Phone John Diaz MD Primary Care Provider [phone] Encounter Details Date Type Department Care Team (Late st Contact Info) Description 05/31/2019 Telephone [place] [phone] Esther Spain Social History Tobacco Use Types Packs/Day Years [...] PM EDT Office Visit Cardiology at [address] [phone] Estiven Raza MD [facility] [place] [address] documented as of this encounter Visit Diagnoses Not on filedocumented in this encounter Care Teams Registered Nurse Cardiac Relationship Specialty Start Date End Date John Diaz MD [address] [place] [address] PCP - General 12/22/14 07/18/21 documented as of this encounter
--- OUTSIDE RECORDS SUMMARY | 2024-05-02 13:58 | XMS_ITS | Encounter Summary ---
Author Organization [facility] Address [facility] [place] [address] Care Team Providers Care Black And White Printer Operator Name Role Phone John Diaz MD Primary Care Provider [phone] Encounter Details Date Type Department Care Team (Late st Contact Info) Description 12/13/2020 12:00 PM EDT Office [place] [address] Sam Monzon MD [facility] [place] [address] Stage 3 severe COPD by GOLD classification; Ex-smoker; RODRIGUEZ (dyspnea on exertion); Exercise hypoxemia Social History Tobacco Use Types Packs/Day Years [...] Sign Reading Time Taken Comments Blood Pressure 127/49 12/13/2020 11:54 AM EDT Pulse 58 12/13/2020 11:54 AM EDT Temperature 36.9 ??C (98.4 ??F) 12/13/2020 11:54 AM E DT Respiratory Rate - - Oxygen Saturation 98% 12/13/2020 11:54 AM EDT on room air Inhaled Oxygen Concentration - - Weight 68 kg (150 lb) 12/13/2020 11:54 AM EDT Height 152.4 cm (5') 12/13/2020 11:54 AM EDT Body Mass Index 29.29 12/13/2020 11:54 AM EDT documented in this encounter Progress Notes * Sam Monzon MD - 12/13/2020 12:00 PM EDT Pulmonary Follow-Up Visit Date of Encounter: 12/13/20 PCP: John Diaz MD [address] [place] [address] [address] [place] [address] Pulmonary Background: ?? GOLD 3 COPD ?? Ex smoker, quit 2005 - 35 year + smoking history ?? Hospitalized for COPD exacerbation at [facility], October 2018 Subjective: I last saw Thanh via a telehealth visit in December of 2019. I am pleased to say that overall she is done fairly well in the past year with no significant exacerbations requiring prednisone or antibiotics. She continues to use inhaled Stiolto but has noticed that her exertional dyspnea might be slightly worse. Her oxygen saturations have been noted to be low on occasion, particularly with activity. He does have oxygen at home but is reluctant to wear it much. She is concerned about becoming dependent on it. We discussed this in depth today. Current Outpatient Medications Medication Sig Dispense Refill ??? Stiolto Respimat [...] facility-administered medications for this visit. Examination: BP 127/49 Pulse 58 Temp 36.9 ??C (98.4 ??F) (Temporal) Ht 152.4 cm (5') Wt 68 kg (150 lb) SpO2 98% Comment: on room air BMI 29.29 kg/m?? No clubbing, no cyanosis Chest is [...] abnormalities Decision Making/Plan: Thanh is really doing fairly well with her dyspnea. I think her inhaled medication is appropriate and her exacerbations seem to be fairly infrequent. Her resting oxygen saturation is reassuring and she clearly does not need oxygen at rest or with minor activities around the house. Available clinical trial data suggests that the use of supplemental oxygen with activity is unlikely to change prognosis or frequency of hospital admission. It may however help her with symptoms of exertional dyspneaand I have encouraged her to use oxygen at home for exercise such as walking on a treadmill and to consider using it outside of the home for longer walks. Thanh is going to think about that I will let me know if she has any questions. Strongly recommend Covid vaccination and I will see her again in 6 months. Sam Monzon MD documented in this encounter Plan of Treatment Upcoming Encounters Date Type Department Care Team (Late st Contact Info) Description 05/29/2024 2:00 PM EDT Office Visit Cardiology at [address] [phone] Estiven Raza MD [facility] [place] [address] documented as of this encounter Visit Diagnoses Diagnosis Stage 3 severe COPD by GOLD classification Ex-smoker Personal history of tobacco use, presenting hazards to health RODRIGUEZ (dyspnea on exertion) Other dyspnea and respiratory abnormality Exercise hypoxemia Hypoxemia documented in this encounter Care Teams Black And White Printer Operator Relationship Specialty Start Date End Date John Diaz MD [address] [place] [address] PCP - General 12/22/14 07/18/21 documented as of this encounter
--- OUTSIDE RECORDS SUMMARY | 2024-05-02 13:58 | XMS_ITS | Encounter Summary ---
Author Organization [facility] Address [facility] [place] [address] Care Team Providers Care Assault Amphibious Vehicle Officer Name Role Phone John Diaz MD Primary Care Provider [phone] Encounter Details Date Type Department Care Team (Late st Contact Info) Description 03/06/2019 Orders [place] [phone] Grace Singh, OUTDOOR POWER EQUIPMENT MECHANIC Carotid stenosis, left; Occlusion of left carotid artery Social History Tobacco Use Types Packs/Day Years [...] 2:00 PM EDT Office Visit Cardiology at [address] [phone] Estiven Raza MD [facility] [place] [address] documented as of this encounter Results * Carotid Duplex, Bilateral (04/02/2019 1:36 PM EDT) VB Text Report Department: Vascular Surgery Lab Patient: [id number] (THANH GONZALEZ) CPT: 03669 ICD10: I65.22;I65.23 Referring Physician: JOBY WAN ?? Indications: Patient with known left ICA stenosis by OSH, ? degree of stenosis ICD10 Diagnosis Code: I65.22, I65.23 Findings: ICA Proximal, Right ? PSV (cm/s): 94 ? EDV (cm/s): 11 ? ICA/CCA: 1.7 ? Plaque Structure: Echogenic ? Plaque Surface: Irregular ? %Stenosis: 16-49% ICA Distal, Right ? PSV (cm/s): 52 ? EDV (cm/s): 15 ? ICA/CCA: 0.9 CCA Distal, Right ? PSV (cm/s): 55 ? EDV (cm/s): 8 ? %Stenosis: Minimal CCA Proximal, Right ? PSV (cm/s): 119 ? EDV (cm/s): 0 External Carotid Artery, Right ? PSV (cm/s): 114 ? EDV (cm/s): 7 ? %Stenosis: <50% Vertebral, Right ? PSV (cm/s): 46 ? EDV (cm/s): 9 ? Direction of Flow: Antegrade ICA Proximal, Left ? PSV (cm/s): 138 ? EDV (cm/s): 12 ? ICA/CCA: 1.0 ? Plaque Structure: Echogenic ? Plaque Surface: Irregular ? %Stenosis: 16-49% ICA Distal, Left ? PSV (cm/s): 80 ? EDV (cm/s): 13 ? ICA/CCA: 0.6 CCA Distal, Left ? PSV (cm/s): 133 ? EDV (cm/s): 19 ? %Stenosis: <50% CCA Proximal, Left ? PSV (cm/s): 51 ? EDV (cm/s): 9 External Carotid Artery, Left ? PSV (cm/s): 137 ? EDV (cm/s): 0 ? %Stenosis: <50% Vertebral, Left ? PSV (cm/s): 38 ? EDV (cm/s): 10 ? Direction of Flow: Antegrade Interpretation: RIGHT: A thin layer of circumferential plaque is present in the common carotid artery causing minimal stenosis. There is bulky irregular plaque in the proximal internal carotid artery causing 16-49% stenosis when compared to the more distal internal carotid artery. The bifurcation level is in the mid neck. LEFT: There is irregular plaque in the common carotid artery causing 20-25% stenosis by electronic calipers. There is bulky irregular plaque in the bifurcation/proxim al internal carotid artery causing 16-49% stenosis when compared to the more distal internal carotid artery. The bifurcation level is in the mid neck. Vertebral Artery Data: Patent vertebral arteries with normal antegrade Doppler waveforms and velocities bilaterally. Comparison: ??No previous study in our vascular lab database for comparison. Electronically Signed by: SHARMILA MCCRAY MD on 2019-04-04 04:53:12 PM VASCUBASE VB Text Report End of Report VASCUBASE 04/02/2019 1:36 PM EDT Joby Wan MD VASCULAR ORDERABLES VASCUBASE documented in this encounter Visit Diagnoses Diagnosis Carotid stenosis, left Occlusion and stenosis of carotid artery without mention of cerebral infarction Occlusion of left carotid artery Occlusion and stenosis of carotid artery without mention of cerebral infarction documented in this encounter Care Teams Assault Amphibious Vehicle Officer Relationship Specialty Start Date End Date John Diaz MD [address] [place] [address] PCP - General 12/22/14 07/18/21 documented as of this encounter
--- OUTSIDE RECORDS SUMMARY | 2024-05-02 13:58 | XMS_ITS | Encounter Summary ---
Author Organization [facility] Address [facility] [place] [address] Care Team Providers Care World History Teacher Name Role Phone John Diaz MD Primary Care Provider [phone] Encounter Details Date Type Department Care Team (Late st Contact Info) Description 04/22/2020 Orders Only Cardiology at [address] [phone] June Berry RN Hypertension, unspecified type Social History Tobacco Use [...] PM EDT Office Visit Cardiology at [address] [phone] Estiven Raza MD [facility] [place] [address] documented as of this encounter Results * EKG 12 Lead (05/04/2020 8:55 AM EDT) Ventricular rate 63 BPM MUSE SYSTEM Atrial Rate 63 BPM MUSE SYSTEM P-R Interval 138 ms MUSE SYSTEM QRS Duration 68 ms MUSE SYSTEM Q-T Interval 426 ms MUSE SYSTEM QTC Calculated (Bezet) 435 ms MUSE SYSTEM Calculated P [place] 76 degrees MUSE SYSTEM Calculated R [place] 66 degrees MUSE SYSTEM Calculated T [place] 68 degrees MUSE SYSTEM INTERPRETATION Normal sinus rhythm Normal ECG When compared with ECG of 02-APR-2018 13:33, No significant change was found Confirmed by MD MIKE, JOSH ([id number]) on 05/04/2020 5:49:47 PM MUSE SYSTEM 05/04/2020 8:55 AM EDT 05/04/2020 5:49 PM EDT Dionte Chavez MD ECG ORDERABLES MUSE SYSTEM documented in this encounter Visit Diagnoses Diagnosis Hypertension, unspecified type documented in this encounter Care Teams World History Teacher Relationship Specialty Start Date End Date John Diaz MD [address] [place] [address] PCP - General 12/22/14 07/18/21 documented as of this encounter
--- OUTSIDE RECORDS SUMMARY | 2024-05-02 13:58 | XMS_ITS | Encounter Summary ---
Author Organization [facility] Address [facility] [place] [address] Care Team Providers Care Finisher Map And Chart Name Role Phone Gabby Castaneda SUDHAKAR Primary Care Provider [phone] Encounter Details Date Type Department Care Team (Latest Contact Info) Description 12/29/2021 3:30 PM EDT Office [place] [phone] Sam Monzon MD [facility] [place] [address] Acute exacerbation of chronic obstructive pulmonary disease; Stage 3 severe COPD by GOLD classification [...] Sign Reading Time Taken Comments Blood Pressure 137/56 12/29/2021 3:39 PM EDT Pulse 57 12/29/2021 3:39 PM EDT Temperature 36.1 ??C (97 ??F) 12/29/2021 3:39 PM EDT Respiratory Rate 16 12/29/2021 3:39 PM EDT Oxygen Saturation 97% 12/29/2021 3:39 PM EDT Inhaled Oxygen Concentration - - Weight 68.8 kg (151 lb 9.6 oz) 12/29/2021 3:39 P M EDT Height 152.4 cm (5') 12/29/2021 3:39 PM EDT Body Mass Index 29.61 12/29/2021 3:39 PM EDT documented in this encounter Progress Notes * Sam Monzon MD - 12/29/2021 3:30 PM EDT Pulmonary Follow-Up Visit Date of Encounter: 12/29/21 PCP: Gabby Castaneda, SENIOR SAS PROGRAMMER [address] [place] [address] Pulmonary Background: ?? GOLD 3 COPD ?? Ex smoker, quit 2005 - 35 year + smoking history ?? Hospitalized for COPD exacerbation at [facility], October 2018 Subjective: I saw Thanh Gonzalez in the pulmonary clinic today. She is done fairly well for most of the last 6months with Stiolto and additional short-acting bronchodilator as needed. In the last couple of weeks she has found she is needing to use albuterol or Combivent more quickly in addition to her Stiolto. No significant sputum but she has been coughing slightly more and been a lot more wheezy. She uses oxygen occasionally at night but has not felt like she needs to use it during the day. No fevers or chills no other systemic symptoms. She does find this time of year is typically tough with pollen and dust. Current Outpatient Medications Medication Sig Dispense Refill ??? alendronate (Fosamax) 70 mg Tablet TAKE 1 TABLET BY MOUTH PER WEEK ??? furosemide (Lasix) 20 mg Tablet Take 2 tablets by mouth daily. (Patient taking differently: Take 40 mg by mouth daily. 1 time daily) 180 tablet 1 ??? ipratropium-albuteroL (Combivent Respimat) 20-100 mcg/actuation Mist Inhale 1 puff into the lungs 4 times daily for 360 days. 1 each 11 ??? ipratropium-albuteroL (Duoneb) 0.5 mg-3 mg(2.5 mg base)/3 mL Solution for Nebulization Take 0.5mg by nebulization every 8 hours as needed. Dx: COPD J44.9 270 mL 3 ??? tiotropium-olodateroL (Stiolto Respimat) 2.5-2.5 mcg/actuation Mist Inhale 2 puffs into the lungs daily. 4 g 11 ??? albuterol 90 mcg/actuation HFA Aerosol Inhaler [...] daily as needed. 2 each 11 ??? lidocaine (Lidoderm) 5% Adhesive Patch, Medicated Apply topically. ??? triamterene-hydrochlorothiazide (DYAZIDE) 37.5-25 mg Capsule TAKE ONE CAPSULE BY MOUTH EVERY DAY 4 No current facility-administered medications for this visit. Examination: BP 137/56 Pulse 57 Temp 36.1 ??C (97 ??F) (Temporal) Resp 16 Ht 152.4 cm (5') Wt 68.8 kg (151 lb 9.6 oz) SpO2 97% BMI 29.61 kg/m?? No clubbing, no cyanosis Chest is clear on examination today with no crackles but she does have some bilateral end expiratory wheeze predominantly in the upper zones No significant ankle edema Data Review: Recent data: ?? BMP December 2021 was normal Prior data: ??? Last FEV1 in late 2018 was 45% predicted, similar to previous values ??? Last chest CT October 2018 showed emphysema but no other significant abnormalities Decision Making/Plan: Thanh is overall doing very well and no major changes are needed to her typical routine of Stiolto2 puffs daily and short-acting bronchodilators as needed. However, her increasing dyspnea cough andwheeze recently with no real sputum or systemic symptoms makes me wonder about an allergic component. I think it is worth trying a short course of prednisone as below to see if that helps. We discussed potential side effects including insomnia and I encouraged her to take this medication in the morning with food. No other changes are required at this time. Medication ordered or changed during this encounter, will not show discontinued medications Medications ??? predniSONE (Deltasone) 20 mg Tablet Sig: Take 2 tablets by mouth daily for 5 days. Dispense: 10 tablet Refill: 1 ??? albuteroL 90 mcg/actuation HFA Aerosol Inhaler Sig: Inhale 2 puffs into the lungs every 4 hours as needed for Wheezing. Use with spacer Dispense: 1 each Refill: 11 OK to sub brand if insurance mandates. Preference is most cost-effective covered MDI first. Follow-up 2022, sooner if symptoms change Sam Monzon MD documented in this encounter Plan of Treatment Upcoming Encounters Date Type Department Care Team (Late st Contact Info) Description 05/29/2024 2:00 PM EDT Office Visit Cardiology at [address] [phone] Estiven Raza MD [facility] [place] [address] documented as of this encounter Visit Diagnoses Diagnosis Acute exacerbation of chronic obstructive pulmonary disease Obstructive chronic bronchitis with exacerbation Stage 3 severe COPD by GOLD classification documented in this encounter Care Teams Finisher Map And Chart Relationship Specialty Start Date End Date Gabby Castaneda APRN [address] [facility] [address] [place] [address] PCP - General Family Medicine 07/19/21 04/30/23 documented as of this encounter
--- OUTSIDE RECORDS SUMMARY | 2024-05-02 13:58 | XMS_ITS | Encounter Summary ---
Author Organization [facility] Address [facility] [place] [address] Care Team Providers Care Abrasive Worker Name Role Phone John Diaz MD Primary Care Provider Reason for Visit * Consultation (Routine) - Specialty Diagnoses / Procedures Referred By Rangel t Referred To Contact Vascular Surgery Diagnoses Occlusion and stenosis of left carotid artery John Diaz MD [address] [place] [address] [facility] [place] [facility] [place] [facility] [address] [place] [address] Referral ID Status Reason Start Date Expiration Date V isits Requested Visits Authorized [id number] Consult, Test & Treat PCP Updated and/or Approved 02/28/2019 08/31/2019 6 6 Encounter Details Date Type Department Care Team (Latest Contact Info) Description 04/02/2019 2:30 PM EDT Office Visit [place] [phone] Christine Sales MD [facility] [place] [address] Carotid stenosis, asymptomatic, bilateral; Hyperlipidemia, unspecified hyperlipidemia type; Hypertension, unspecified type Social History Tobacco Use [...] Sign Reading Time Taken Comments Blood Pressure 131/47 04/02/2019 2:24 PM EDT Pulse 70 04/02/2019 2:23 PM EDT Temperature - - Respiratory Rate - - Oxygen Saturation - - Inhaled Oxygen Concentration - - Weight 70.8 kg (156 lb) 04/02/2019 2:23 PM EDT r eported Height 152.4 cm (5') 04/02/2019 2:23 PM EDT repo rted Body Mass Index 30.47 04/02/2019 2:23 PM EDT documented in this encounter Progress Notes * Christine Sales MD - 04/02/2019 2:30 PM EDT [facility] VASCULAR SURGERY INITIAL CONSULT SERVICE DATE: 04/02/19 SERVICE TIME: 2:40 PM PRIMARY CARE PHYSICIAN: John Diaz MD REFERRING PROVIDER: [place] [address] Consult requested for an opinion regarding the evaluation and treatment of the above. My final impression and recommendations will be communicated back to the requesting physician by way of the shared medical record or letter via US mail. Subjective CHIEF COMPLAINT/HISTORY OF PRESENT ILLNESS: Chief Complaint: carotid bruit History of Present Illness: Thanh Gonzalez is a 68 y.o. female referred for an opinion regarding management of carotid bruit. Patient states that one of her physicians heard a bruit in her neck and ordered a carotid duplex andvascular surgery consultation. Today she underwent a carotid US which noted 16-49% stenosis b/l. Denies any numbness/weakness b/l UE or LE, amaurosis fugax, or issues w/speech. States she takes ASA 81mg. She is a former smoker. Recently had an NSTEMI was [place] [facility] States she took CBD oil and developed chest tightness.Cath was negative for any coronary stenosis. No LE rest pain or tissue loss, no claudication. Atherosclerotic Risk Factors: (-) DM (-) HTN (-) CAD (-) CHF (-) Hyperlipidemia (-) CVA (-) CKD/ESRD PAST MEDICAL/SURGICAL/FAMILY/SOCIAL HISTORY Past Medical History: Diagnosis Date ??? Allergic state ??? Arthritis ??? COPD (chronic obstructive pulmonary disease) ??? Former smoker, stopped smoking many years ago quit in 2006, previously 1-2 PPD use ??? Fractures ??? HTN (hypertension) ??? Lung disease ??? Pneumonia ??? Seizures ??? SLE (systemic lupus erythematosus) Past Surgical History: Procedure Laterality Date ??? [...] Uncle ??? Cancer Maternal Grandmother Social History Tobacco Use ??? Smoking status: Former Smoker Packs/day: 1.00 Years: 30.00 Pack years: 30.00 Types: Cigarettes Last attempt to quit: 02/16/2005 Years since quittin.1 ??? Smokeless tobacco: Never Used Substance Use Topics ??? Alcohol use: Yes Comment: 1 beer every 2-3 weeks, rare use ??? Drug use: Yes Types: Marijuana Comment: medical marijuana card Current Outpatient Medications Medication Sig Dispense Refill ??? triamterene-hydrochlorothiazide (DYAZIDE) 37.5-25 mg Capsule TAKE [...] for this visit. Allergies Allergen Reactions ??? Hymenoptera Allergenic Extract Anaphylaxis ??? Other [Unclassified Drug] Anaphylaxis Black flies, mosquitos ( SWELLING) ??? Tetanus Vaccines And Toxoid COMPLETE REVIEW OF SYSTEMS GENERAL: No weight loss, malaise or fevers. HEENT: Negative for frequent or significant headaches NECK: Negative for pain and significant neck swelling RESPIRATORY: Negative for cough, or shortness of breath. +hx of COPD, recent admission, +wheezing CARDIOVASCULAR: Negative for chest pain, or palpitations. GI: Negative for abdominal discomfort, change in bowel habits, hematochezia, melena, nausea, vomiting : No history of dysuria, negative for CKD or ESRD Endo: Neg hx of DM MUSCULOSKELETAL: Negative for new joint pain. SKIN: Negative for new lesions. Chronic skin changes/ulcers PSYCH: Negative HEMATOLOGY/LYMPHOLOGY: Negative for prolonged bleeding, no history of clotting. NEURO: No new symptoms of TIA, amaurosis, weakness, or difficultly speaking All other reviewed and negative other than HPI. Objective PHYSICAL EXAM Physical Exam Performed BP 131/47 (BP Location (NBP): Left arm, Patient Position: Sitting, BP Cuff Sizes: Adult (25-34 cm)) Pulse 70 Ht 152.4 cm (5') Comment: reported Wt 70.8 kg (156 lb) Comment: reported BMI 30.47kg/m?? CONSTITUTIONAL: alert, well developed, well nourished, in no acute distress NEUROLOGIC/PSYCHIATRIC: Grossly normal HEENT: normal atraumatic, no neck masses, normal thyroid, no jvd LUNGS: Auscultation: normal air entry, distant lung sounds and end expiratory wheeze HEART: regular rate and rhythm, S1, S2 normal, no murmur, click, rub or gallop ABDOMEN: soft, non-tender; bowel sounds normal; no masses, no organomegaly INTEGUMENTARY: Wound - none SURGICAL SITES: none MUSCULOSKELETAL: negative Pulses/Signals: Brachial Radial Femoral Popliteal Dorsalis Pedis Posterior Tibial Right 2/2 2/2 2/2 2/2 2/2 2/2 Left 2/2 2/2 2/2 2/2 2/2 2/2 DATA: Laboratory: None Radiology: 04/02/19 Carotid duplex RIGHT: A thin layer of circumferential plaque is present in the common carotid artery causing minimal stenosis. There is bulky irregular plaque in the proximal internal carotid artery causing 16-49% stenosis when compared to the more distal internal carotid artery. The bifurcation level is in the mid neck. ?? LEFT: There is irregular plaque in the common carotid artery causing 20-25% stenosis by electronic calipers. There is bulky irregular plaque in the bifurcation/proximal internal carotid artery causing 16-49% stenosis when compared to the more distal internal carotid artery. The bifurcation level is in the mid neck. ?? Vertebral Artery Data: Patent vertebral arteries with normal antegrade Doppler waveforms and velocities bilaterally. I have personally reviewed the following images/data: carotid duplex Impression: 68 y.o. female with asymptomatic mild carotid stenosis <50%. No history or symptoms of TIA/stroke. No indication for surgical intervention, recommend medical management of carotid atherosclerosis. Plan: - Discuss with PCP and recommend start ASA 81 mg daily, continue lipitor - peak velocity 138, low risk of progression. Follow-up carotid duplex in 2 years SIGNATURE: Christine Sales MD PATIENT NAME: Thanh Gonzalez DATE: April 02, 2019 TIME: 2:40 PM documented in this encounter Plan of Treatment Upcoming Encounters Date Type Department Care Team (Late st Contact Info) Description 05/29/2024 2:00 PM EDT Office Visit Cardiology at [address] [phone] Estiven Raza MD [facility] [place] [address] documented as of this encounter Visit Diagnoses Diagnosis Carotid stenosis, asymptomatic, bilateral Hyperlipidemia, unspecified hyperlipidemia type Hypertension, unspecified type documented in this encounter Care Teams Abrasive Worker Relationship Specialty Start Date End Date John Diaz MD [address] [facility] [address] [place] [address] PCP - General 12/22/14 07/18/21 documented as of this encounter
--- OUTSIDE RECORDS SUMMARY | 2024-05-02 13:58 | XMS_ITS | Encounter Summary ---
Author Organization [place] [address] Care Team Providers Care County Agent Name Role Phone Gabby Castaneda SUDHAKAR Primary Care Provider [phone] Reason for Referral * Diagnostic Test (Routine) - Closed Specialty Diagnoses / Procedures Referred By Contpauline t Referred To Contact Diagnoses Bilateral carotid artery stenosis Procedures Carotid Duplex, Bilateral Herminio Chavez MD [facility] [place] [address] [facility] [address] [place] [address] Referral ID Status Reason Start Date Expiration Date V isits Requested Visits Authorized [id number] Closed Specialty Service Requested 07/19/2021 07/19/2022 1 1 Encounter Details Date Type Department Care Team (Late st Contact Info) Description 07/19/2021 11:20 AM EST Office Visit Cardiology at [address] [address] Herminio Chavez MD [facility] [place] [address] Bilateral carotid artery stenosis Social [...] Sign Reading Time Taken Comments Blood Pressure 144/47 07/19/2021 11:21 AM EST Pulse 54 07/19/2021 11:21 AM EST Temperature - - Respiratory Rate - - Oxygen Saturation 90% 07/19/2021 11:21 AM EST Inhaled Oxygen Concentration - - Weight 66.8 kg (147 lb 3.2 oz) 07/19/2021 11:21 AM EST Height 152.4 cm (5') 07/19/2021 11:21 AM EST Body Mass Index 28.75 07/19/2021 11:21 AM EST documented in this encounter Patient Instructions * Patient Instructions* Herminio Chavez MD - 07/19/2021 11:20 AM EST I think we can simplify your medications. STOP taking your Dyazide (triamterene-hydrochlorothiazide). STOP taking your Lisinopril. STOP taking your Metoprolol Continue with your other medications. Monitor your blood pressure at home. Sit down. Feet flat on the floor. Arm resting on a table. Thenwait 3-5 minutes before taking your blood pressure. Write down the results. Call me in early August to report on your readings. [phone]. I will see you back in 6 months. documented in this encounter Progress Notes * Herminio Chavez MD - 07/19/2021 11:20 AM EST SUBJECTIVE: 70 y.o. woman being seen for a CC of CAD and RODRIGUEZ. Patient Active Problem List Diagnosis ??? Hip pain ??? Hoarseness of voice ??? Pharyngoesophageal dysphagia ??? Right carotid bruit ??? CAD (coronary artery disease), [place] coronary artery ??? NSTEMI (non-ST elevated myocardial [...] Dr. Sherri Wilson. ??? Osteopenia DXA 12/2006 [facility] LS SPINE T SCORE [...] Types: Cigarettes Quit date: 02/16/2005 Years since quittin.4 ??? Smokeless tobacco: Never Used Vaping Use [...] Social History Narrative Apr 2012: lives in [place], [place] (N of [facility]) partner: Apollo Dumont (d. 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 EtOH: rare/none 1 dog in home, keeps chickens and a beefalo; raising turkeys for Thanksgiving. mows lawn, uses zahira Social Determinants of Health Financial Resource Strain: Not on file Food Insecurity: Not on file Transportation Needs: Not on file Physical Activity: Not on file Housing Stability: Not on file Current Outpatient Medications Medication Sig Dispense Refill ??? furosemide (Lasix) 20 mg Tablet TAKE ONE TABLET BY MOUTH EVERY DAY 90 tablet 1 ??? ipratropium-albuteroL (Combivent Respimat) 20-100 [...] did use this the morning of her PR. She has continued to use it and finds that it causes transient chest pain and SOB that last for 5-10 minutes. Ifshe does not take this medication she does [...] clearly overweight. No cough, wheezing, sputum production.) FROM 07/19/21: No chest pains or pressure. Remains with RODRIGUEZ that is thought secondary to her COPD. Being followed by Pulmonary. Taking/tolerating all her medications as prescribed and notes no side effects. Her PCP increased her furosemide to 40 mg QD and discontinued her Plaquenil. Had a recent laboratory evaluation at [facility]. Results not currently available in D. Not routinely taking her BP at home. Did not take her medications this morning. No cigarettes. Not diabetic. No regular exercise though she does have a treadmill. Weight stable. ROS: The patient denies or endorses (+): [...] or heat intolerance PHYSICAL EXAM Blood pressure 144/47, pulse 54, height 152.4 cm (5'), weight 66.8 kg (147 lb 3.2 oz), SpO2 90 %. Middle aged woman looking slightly older [...] conditioning. She declined a referral to our student.) FROM 07/19/21: CAD: No evidence of active [...] conditioning. She declined a referral to our student. PAD: Has moderate carotid disease. On ASA plus a statin. Will repeat her carotid du plex when next seen. Time was spent in a face to face conversation with the patient (and accompanying family members, ifpresent) regarding my impressions and recommendations and providing counseling. All questions were answered to the patient's (and accompanying family's, if present) satisfaction. I will plan to see the patient back in follow-up in 3 months. documented in this encounter Plan of Treatment Upcoming Encounters Date Type Department Care Team (Late st Contact Info) Description 05/29/2024 2:00 PM EDT Office Visit Cardiology at [address] [address] Estiven Raza MD [facility] [place] [address] documented as of this encounter Results * Carotid Duplex, Bilateral (03/01/2022 1:09 PM EDT) VB Text Report Department: Vascular Surgery Lab Patient: [id number] (THANH GONZALEZ) CPT: 61368 Referring Physician: HERMINIO CHAVEZ ?? Indications: 71 year old female with bilateral carotid disease, ? change from previous exam Findings: ICA Proximal, Right ? PSV (cm/s): 115 ? EDV (cm/s): 16 ? ICA/CCA: 1.7 ? Plaque Structure: Echogenic ? Plaque Surface: Irregular ? %Stenosis: 16-49% ICA Distal, Right ? PSV (cm/s): 54 ? EDV (cm/s): 11 ? ICA/CCA: 0.8 CCA Distal, Right ? PSV (cm/s): 68 ? EDV (cm/s): 14 ? %Stenosis: <50% CCA Proximal, Right ? PSV (cm/s): 109 ? EDV (cm/s): 12 External Carotid Artery, Right ? PSV (cm/s): 171 ? EDV (cm/s): 3 ? %Stenosis: <50% Vertebral, Right ? PSV (cm/s): 47 ? EDV (cm/s): 8 ? Direction of Flow: Antegrade ICA Proximal, Left ? PSV (cm/s): 117 ? EDV (cm/s): 9 ? ICA/CCA: 1.2 ? Plaque Structure: Echogenic ? Plaque Surface: Irregular ? %Stenosis: 16-49% ICA Distal, Left ? PSV (cm/s): 62 ? EDV (cm/s): 12 ? ICA/CCA: 0.6 CCA Distal, Left ? PSV (cm/s): 98 ? EDV (cm/s): 16 ? %Stenosis: <50% CCA Middle, Left ? PSV (cm/s): 93 ? EDV (cm/s): 16 CCA Proximal, Left ? PSV (cm/s): 74 ? EDV (cm/s): 12 External Carotid Artery, Left ? PSV (cm/s): 178 ? EDV (cm/s): 0 ? %Stenosis: <50% Vertebral, Left ? PSV (cm/s): 53 ? EDV (cm/s): 10 ? Direction of Flow: Antegrade Interpretation: RIGHT: There is irregular plaque in the common carotid artery causing <50% stenosis by B-mode. There is bulky irregular plaque in the proximal internal carotid artery causing 16-49% stenosis when compared to the more distal internal carotid artery. The bifurcation level is in the mid neck. No significant change compared to the exam on 05/04/2020. LEFT: There is irregular plaque in the common carotid artery causing <50% stenosis by B-mode. There is bulky irregular plaque in the proximal internal carotid artery causing 16-49% stenosis when compared to the more distal internal carotid artery. The bifurcation level is in the mid neck. No significant change compared to the exam on 05/04/2020. Vertebral Artery Data: Patent vertebral arteries with normal antegrade Doppler waveforms and velocities bilaterally. Previous Carotid Studies: Date ?RIGHT ICA Stenosis ??PSV ?? Ratio ?? LEFT ICA Stenosis ?? PSV ?? Ratio ? 16-49% ? 94 ?1.70 ? 16-49% ? 138 ?? 1.00 ? 16-49% ? 110 ?? 1.40 ? 16-49% ? 164 ?? 1.60 Current Exam ? 16-49% ? 115 ?? 1.70 ? 16-49% ? 117 ?? 1.20 Electronically Signed by: ZAYRA GALLARDO on 2022-03-04 09:27:27 PM VASCUBASE VB Text Report End of Report VASCUBASE 03/01/2022 1:09 PM EDT Herminio Chavez MD VASCULAR ORDERABLES VASCUBASE documented in this encounter Visit Diagnoses Diagnosis Bilateral carotid artery stenosis Occlusion and stenosis of multiple and bilateral precerebral arteries without mention of cerebral infarction documented in this encounter Care Teams County Agent Relationship Specialty Start Date End Date Gabby Castaneda, SUDHAKAR [address] [facility] [address] [place] [address] PCP - General Family Medicine 07/19/21 04/30/23 documented as of this encounter
--- OUTSIDE RECORDS SUMMARY | 2024-05-02 13:58 | XMS_ITS | Encounter Summary ---
Author Organization [facility] [place] [address] Care Team Providers Care Training And Development Director Name Role Phone Gabby Castaneda SUDHAKAR Primary Care Provider [phone] Encounter Details Date Type Department Care Team (Late st Contact Info) Description 02/10/2022 Telephone [place] [phone] Gem Thompson Social History Tobacco Use Types Packs/Day Years [...] encounter Miscellaneous Notes * Telephone Encounter - Gem Valdes - 02/10/2022 3:02 PM EDT RECALL: JOHN NAVARRO BEBO DUP - CAROTID DUPLEX - CAROTID STENOSIS 2 YR FU Sent lost to follow up letter. Recall closed documented in this encounter Plan of Treatment Upcoming Encounters Date Type Department Care Team (Late st Contact Info) Description 05/29/2024 2:00 PM EDT Office Visit Cardiology at [address] [address] Estiven Raza MD [facility] [place] [address] documented as of this encounter Visit Diagnoses Not on filedocumented in this encounter Care Teams Training And Development Director Relationship Specialty Start Date End Date Gabby Castaneda APRN [address] [place] [address] [address] PCP - General Family Medicine 07/19/21 04/30/23 documented as of this encounter
--- OUTSIDE RECORDS SUMMARY | 2024-05-02 13:58 | XMS_ITS | Encounter Summary ---
Author Organization [facility] Address [facility] [place] [address] Care Team Providers Care Towboat Pilot Name Role Phone John Diaz MD Primary Care Provider [phone] Encounter Details Date Type Department Care Team (Late st Contact Info) Description 06/25/2019 Orders [place] [address] Sam Monzon MD [facility] [place] [address] Chronic obstructive pulmonary disease, unspecified COPD type (Primary Dx) Social History Tobacco Use Types Packs/Day Years [...] 2:00 PM EDT Office Visit Cardiology at [address] [address] Estiven Raza MD [facility] [place] [address] documented as of this encounter Results * Pulmonary Function Testing (06/26/2019 11:59 PM EST) Narrative Abhinav Garcia MD - 06/26/2019 11:59 PM EST Abhinav Garcia MD ? 07/04/2019 ??3:18 PM FVC within normal limits. FEV1, FEV1/FVC are low. IMPRESSION: Obstructive lung disease. Sam Monzon MD PFT ORDERABLES documented in this encounter Visit Diagnoses Diagnosis Chronic obstructive pulmonary disease, unspecified COPD type- Primary Chronic obstructive pulmonary disease, unspecified COPD type documented in this encounter Care Teams Towboat Pilot Relationship Specialty Start Date End Date John Diaz MD [address] [place] [address] PCP - General 12/22/14 07/18/21 documented as of this encounter
--- OUTSIDE RECORDS SUMMARY | 2024-05-02 13:58 | XMS_ITS | Encounter Summary ---
Author Organization [facility] [address] Care Team Providers Care Rehabilitation Counselor Name Role Phone John Diaz MD Primary Care Provider [phone] Encounter Details Date Type Department Care Team (Late st Contact Info) Description 07/18/2018 Telephone [place] [address] Binh Bell RN Social History Tobacco Use Types Packs/Day [...] Telephone Encounter - Binh Bell RN - 07/24/2018 12:22 PM EST Images from the original note were not included. Jaleesa Sawyer MD Gavalakis, Rory A, RN Caller: Unspecified (6 days ago, 11:05 AM) ?? Not really any that have been proven to be effective. Some people take biotin, but not proven to be effective. * Telephone Encounter - Binh Bell RN - 07/19/2018 9:45 AM EST Images from the original note were not included. Jaleesa Sawyer MD Gavalakis, Rory A RN Caller: Unspecified (Yesterday, 11:05 AM) ?? Hi - can you let her know that it can alter hair. Can cause bleaching, alopecia, and I gather it could change the texture as well. Not sure what she wishes to do - but I would let her know that the plaquenil is really important to help keep the lupus at bay. * Telephone Encounter - Binh Bell RN - 07/18/2018 12:34 PM EST Patient calls, leaves message requesting to speak to MD. Spoke with patient. States hair used to be nice and wavy and curly, now it's straight, feathery. Noticed on one side, has been happening for about 6 months. Reports no hair loss. Continues with Plaquenil. Patient questions if change to hair r/t medication or to SLE, requests to speak to MD if possible regarding. documented in this encounter Plan of Treatment Upcoming Encounters Date Type Department Care Team (Late st Contact Info) Description 05/29/2024 2:00 PM EDT Office Visit Cardiology at [address] [address] Estiven Raza MD [facility] [address] documented as of this encounter Visit Diagnoses Not on filedocumented in this encounter Care Teams Rehabilitation Counselor Relationship Specialty Start Date End Date John Diaz MD [address] [place] [address] PCP - General 12/22/14 07/18/21 documented as of this encounter
--- OUTSIDE RECORDS SUMMARY | 2024-05-02 13:58 | XMS_ITS | Encounter Summary ---
Author Organization [facility] Address [facility] [place] [address] Care Team Providers Care Grinding And Spraying Supervisor Name Role Phone John Diaz MD Primary Care Provider [phone] Encounter Details Date Type Department Care Team (Late st Contact Info) Description 03/11/2021 12:05 AM EDT Ancillary Procedure Radiology Library at [facility] [place] [place] [phone] John Diaz MD [address] [place] [address] Social History Tobacco Use Types Packs/Day Years [...] PM EDT Office Visit Cardiology at [address] [place] [phone] Estiven Raza MD [facility] [place] [address] documented as of this encounter Procedures Procedure Name Priority Date/Time Associated Diagnosis Comments FILM LIBRARY STORAGE ONLY DX HIP Routine 03/11/2021 12:05 AM EDT documented in this encounter Results * Film Library- Storage Only DX Hip (03/11/2021 12:05 AM EDT) Narrative [facility] - 03/21/2021 4:54 PM EDT This exam is auto-finalizing. It's purpose is for storage only. John Diaz MD IMG FILM LIBRARY ORD ERABLES Performing Organization Address City/State/[facility] Co de Phone Number [place], [place] documented in this encounter Visit Diagnoses Not on filedocumented in this encounter Care Teams Grinding And Spraying Supervisor Relationship Specialty Start Date End Date John Diaz MD [address] [place] [address] PCP - General 12/22/14 07/18/21 documented as of this encounter
--- OUTSIDE RECORDS SUMMARY | 2024-05-02 13:58 | XMS_ITS | Encounter Summary ---
Author Organization [facility] Address [facility] [place] [address] Care Team Providers Care Residential Lawn Specialist Name Role Phone Gabby Castaneda SUDHAKAR Primary Care Provider [phone] Reason for Visit * Reason Comments Medication Refill Encounter Details Date Type Department Care Team (Late st Contact Info) Description 06/11/2019 [place] [phone] Sam Monzon MD [facility] [place] [address] Stage 2 moderate COPD by GOLD classification [...] PM EDT Office Visit Cardiology at [address] [phone] Estiven Raza MD [facility] [place] [address] documented as of this encounter Visit Diagnoses Diagnosis Stage 2 moderate COPD by GOLD classification documented in this encounter Care Teams Residential Lawn Specialist Relationship Specialty Start Date End Date Gabby Castaneda APRN [address] [place] [address] PCP - General Family Medicine 07/19/21 04/30/23 documented as of this encounter
--- OUTSIDE RECORDS SUMMARY | 2024-05-02 13:58 | XMS_ITS | Encounter Summary ---
Author Organization [facility] Address [facility] [place] [address] Care Team Providers Care Termite Exterminator Helper Name Role Phone John Diaz MD Primary Care Provider [phone] Reason for Visit * Reason Comments Follow-up Encounter Details Date Type Department Care Team (Late st Contact Info) Description 06/17/2018 1:00 PM EST Office [place] [address] Sam Monzon MD [facility] [place] [address] Stage 2 moderate COPD by GOLD classification; Acute exacerbation of chronic obstructive airways disease Social History Tobacco Use Types Packs/Day Years [...] Sign Reading Time Taken Comments Blood Pressure 119/47 06/17/2018 12:52 PM EST Pulse 55 06/17/2018 12:52 PM EST Temperature - - Respiratory Rate 20 06/17/2018 12:52 PM EST Oxygen Saturation 96% 06/17/2018 12:52 PM EST Inhaled Oxygen Concentration - - Weight 66.7 kg (147 lb) 06/17/2018 12:52 PM EST Height 152.4 cm (5') 06/17/2018 12:52 PM EST Body Mass Index 28.71 06/17/2018 12:52 PM EST documented in this encounter Progress Notes * Sam Monzon MD - 06/17/2018 1:00 PM EST [facility] Section of Pulmonary Medicine COPD Clinic Follow Up Date of Encounter: 06/17/2018 PCP: John Diaz MD [address] [place] [address] Reason for Visit: Follow Up COPD Interval History: I met Thanh Gonzalez COPD clinic last month. She has significant emphysema and GOLD stage II or III COPD. At her last visit we started her on a combined long-acting anticholinergic and beta agonist. This inhaled therapy was very helpful improving her dyspnea on exertion. It appears to be affordable for her and I renewed this prescription today. Unfortunately in the last couple of weeks she is developed increasing cough and shortness of breath. She is been little more wheezy. She is not producing any sputum and specifically has no hemoptysis. She has no chest pain or fever. Her granddaughter has been sick with something similar and she thinks she caught a viral infection from. Symptoms have not improved despite around 10 days of watchfulwaiting. We discussed lung cancer screening. She is not willing to go forward with this at the minute due tothe risk of false positives and unnecessary biopsy. We discussed pros and cons of cancer screening but I will of course support her decision. We have not seen her alpha-1 antitrypsin genotype result yet. Symptom Scoring: CAT Responses 05/16/2018 06/17/2018 Cough [...] puffs into the lungs daily. 4 g 0 ??? acetaminophen (TYLENOL) 325 mg Tablet [...] Social History Narrative Apr 2012: lives in [place] (N of [facility]) partner: Apollo Dumont (d. 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 EtOH: rare/none 1 dog in home, keeps chickens and a beefalo; raising turkeys for bettermarks. mows lawn, uses weedwhacker Family History: Family [...] ??? Pneumococcal Polyvalent 23 05/08/2014 Examination: BP 119/47 Pulse 55 Resp 20 Ht 152.4 cm (5') Wt 66.7 kg (147 lb) SpO2 96% BMI 28.71 kg/m?? General: Comfortable at rest HEENT: No cervical lymphadenopathy, no oral thrush Mallampati 2 Resp: Hyperinflated, chest expansion equal Resonant to percussion with vesicular breath sounds throughout Bilateral mild wheeze CV: S1 + S2 + O GI: Abdomen soft and non-tender, no organomegaly Skin: No rash Extremities: No clubbing, no [...] Office Visit from 05/16/2018 in Pulmonology at [place] PFT Results FEV1 (L) 0.95 liters FEV1 [...] is moderate disease. 2. Former smoker, quit 2005 - 35 year + smoking history GOLD Staging - Airflow FEV1 >80% 1 FEV1 <80% 2 FEV1 <50% 3 FEV1 <30% 4 GOLD Staging - Symptoms Annual Exacerbations CAT <10 CAT >10 0 or 1 A B 2 or more C D Thanh Gonzalez has moderate COPD, symptoms much improved with the use of a daily long-acting beta agonist and anticholinergic. Unfortunately I think she is in the midst of an exacerbation. While this is probably viral it is hard to exclude an atypical bacterial cause. I opted to treat her with prednisone and azithromycin as per her sick plan below. Plan: 1. Medications Daily: Stiolto 2 puffs [...] lip breathing during PT sessions 8. Oxygen 9. Immunizations Check with Dr Diaz whether you have had PCV-13 (Prevnar 13) 10. Lung cancer screening patient declined 11. LVRS / Transplant 12. Palliative care 13. A1AT Testing await results 14. Other Follow up: 3 months Thank you for referring this patient to the COPD clinic. Sam Monzon MD documented in this encounter Plan of Treatment Upcoming Encounters Date Type Department Care Team (Late st Contact Info) Description 05/29/2024 2:00 PM EDT Office Visit Cardiology at [address] [phone] Estiven Raza MD [facility] [place] [address] documented as of this encounter Visit Diagnoses Diagnosis Stage 2 moderate COPD by GOLD classification Acute exacerbation of chronic obstructive airways disease Obstructive chronic bronchitis with exacerbation documented in this encounter Care Teams Termite Exterminator Helper Relationship Specialty Start Date End Date John Diaz MD [address] [place] [address] PCP - General 12/22/14 07/18/21 documented as of this encounter
--- OUTSIDE RECORDS SUMMARY | 2024-05-02 13:58 | XMS_ITS | Encounter Summary ---
Author Organization [facility] [address] Care Team Providers Care Automotive Service Advisor Name Role Phone John Diaz MD Primary Care Provider [phone] Reason for Visit * Consultation (Routine) - Specialty Diagnoses / Procedures Referred By Ragnel t Referred To Contact Vascular Surgery Diagnoses Occlusion and stenosis of left carotid artery John Diaz MD [address] [place] [address] [facility] [address] [place] [address] Referral ID Status Reason Start Date Expiration Date V isits Requested Visits Authorized [id number] Consult, Test & Treat PCP Updated and/or Approved 02/28/2019 08/31/2019 6 6 Encounter Details Date Type Department Care Team (Late st Contact Info) Description 04/02/2019 1:30 PM EDT Tech [place] [address] Toi Wiggins [place] Carotid stenosis, left; Occlusion of left carotid [...] PM EDT Office Visit Cardiology at [address] [place] [address] Estiven Raza MD [facility] [place] [address] documented as of this encounter Procedures Procedure Name Priority Date/Time Associated Diagnosis Comments CAROTID DUPLEX, BILATERAL Routine 04/02/2019 1:36 PM EDT Carotid stenosis, left Occlusion of left carotid artery documented in this encounter Results * Carotid Duplex, Bilateral (04/02/2019 1:36 PM EDT) VB Text Report Department: Vascular Surgery Lab Patient: [id number] (THANH GONZALEZ) CPT: 79362 ICD10: I65.22;I65.23 Referring Physician: JOBY WAN ?? [...] infarction documented in this encounter Care Teams Automotive Service Advisor Relationship Specialty Start Date End Date John Diaz MD [address] [place] [address] PCP - General 12/22/14 07/18/21 documented as of this encounter
--- OUTSIDE RECORDS SUMMARY | 2024-05-02 13:58 | XMS_ITS | Encounter Summary ---
Author Organization [facility] Address [facility] [place] [address] Care Team Providers Care Wirer Maintenance Name Role Phone John Diaz MD Primary Care Provider [phone] Encounter Details Date Type Department Care Team (Late st Contact Info) Description 05/04/2020 9:00 AM EDT Office Visit Cardiology at [address] [address] Herminio Chavez MD [facility] [place] [address] Hypertension, unspecified type; Bilateral carotid artery disease, unspecified type Social [...] Sign Reading Time Taken Comments Blood Pressure 122/50 05/04/2020 8:52 AM EDT Pulse 64 05/04/2020 8:52 AM EDT Temperature - - Respiratory Rate - - Oxygen Saturation 97% 05/04/2020 8:52 AM EDT Inhaled Oxygen Concentration - - Weight 68.9 kg (152 lb) 05/04/2020 8:52 AM EDT Height 152.4 cm (5') 05/04/2020 8:52 AM EDT Body Mass Index 29.69 05/04/2020 8:52 AM EDT documented in this encounter Patient Instructions * Patient Instructions* Herminio Chavez MD - 05/04/2020 9:00 AM EDT Try taking 10 mg of furosemide once a day. Call me in 2-3 weeks at [phone] to discuss if it has been helpful. I have ordered your carotid study. Once I have the result I will call you. Continue with your other medications. I will see you back in 1 year. documented in this encounter Progress Notes * Herminio Chavez MD - 05/04/2020 9:00 AM EDT SUBJECTIVE: 69 y.o. woman being seen for a CC of CAD. Patient Active Problem List Diagnosis ??? NSTEMI (non-ST elevated myocardial infarction) ??? Epidural lipomatosis ??? Spinal stenosis of lumbar region with radiculopathy ??? Hx of adenomatous colonic polyps 03/23/08: tubular adenoma at [facility] ??? Hypothyroid ??? Alopecia Scarring, alopecia, and hair loss, likely multifactorial. ??? Adult ADHD ??? Anxiety ??? COPD (chronic obstructive pulmonary disease) D/C'd cigs ~ 2005 p ~ 25 pack-yrs. ??? Hypertension ??? Insomnia ??? Seizure disorder Absence seizures ??? Systemic lupus erythematosus mild systemic lupus erythematosus. Seen in past by Dr. Sherri Wilson. ??? Osteopenia DXA 12/2006 [facility] LS SPINE T SCORE -1.4; Left hip [...] education level: None Occupational History Comment: retired Social Needs ??? Financial resource strain: None ??? Food insecurity Worry: None Inability: None ??? Transportation needs Medical: None Non-medical: None Tobacco Use ??? Smoking status: Former Smoker Packs/day: 1.00 Years: 30.00 Pack years: 30.00 Types: Cigarettes Quit date: 02/16/2005 Years since quittin.2 ??? Smokeless tobacco: Never Used Substance and Sexual Activity ??? Alcohol use: Yes Comment: 1 beer every 2-3 weeks, rare use ??? Drug use: Yes Types: Marijuana Comment: medical marijuana card ??? Sexual activity: None Lifestyle ??? Physical activity Days per week: None Minutes per session: None ??? Stress: None Relationships ??? Social connections Talks on phone: None Gets together: None Attends latter day service: None Active member of club or organization: None Attends meetings of clubs or organizations: None Relationship status: None ??? Intimate partner violence Fear of current or ex partner: None Emotionally abused: None Physically abused: None Forced sexual activity: None Other Topics Concern ??? Abuse [...] Social History Narrative Apr 2012: lives in [place], [place] ([address] [place] partner: Apollo Dumont (d. 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 EtOH: rare/none 1 dog in home, keeps chickens and a beefalo; raising turkeys for Thanksgiving. martha lawn, uses weedwhacker Current Outpatient Medications Medication Sig Dispense Refill [...] ( SWELLING) ??? Tetanus Vaccines And Toxoid HPI: (FROM 04/02/18: Hospitalied 03/01- for a [...] did use this the morning of her ID. She has continued to use it and finds that it causes transient chest pain and SOB that last for 5-10 minutes. If she does not take this medication she does not experience these symptoms.) FROM 05/04/20: No serious intercurrent illnesses. Taking all her medications as prescribed and notesno side effects. Still limited by RODRIGUEZ. Followed here by Pulmonary. No orthopnea, PND, ankle edema, palpitations, presyncope/syncope, chest pain or pressures. Can carry on her ADLs but finds it difficult to go for short walks. ROS: The patient denies or endorses (+): General: Unusual fatigue, fever, night sweats Cardiac: Unusual chest pains and/or pressures, +unusual RODRIGUEZ, orthopnea, PND, peripheral edema, new nocturia, palpitations, presyncope, syncope Pulmonary: Cough, wheezing, sputum production, hemoptysis Neuro: TIA or stroke-like symptoms Vascular: Exertional calf, thigh or buttock pain to suggest claudication : Hematuria GI: Melena, bright red blood per rectum MS: Myalgias or arthralgias Endo: Cold or heat intolerance PHYSICAL EXAM Blood pressure 122/50, pulse 64, height 152.4 cm (5'), weight 68.9 kg (152 lb), SpO2 97 %. Middle aged woman looking slightly older than stated age in NAD HEENT: Normocephalic, anicteric, pupils equal, round, reactive to light and accomodation Chest: No palpation tenderness Lungs: Clear to auscultation and percussion Cardiac: Normal CVP, carotid up strokes full/not [...] See remainder of report for additional findings. EKG 05/04/20 which I personally reviewed: NSR at 63 bpm. ASSESSMENT & PLAN: (FROM 04/02/18: I think [...] trying to eat a heart healthy diet.) FROM 05/04/20: No evidence of ischemia. On aspirin [...] try advancing the furosemide to 20 mg QD. Time was spent in a face to face conversation with the patient (and accompanying family members, ifpresent) regarding my impressions and recommendations and providing counseling. All questions were answered to the patient's (and accompanying family's, if present) satisfaction. I will plan to see the patient back in follow-up in 1 year. documented in this encounter Plan of Treatment Upcoming Encounters Date Type Department Care Team (Late st Contact Info) Description 05/29/2024 2:00 PM EDT Office Visit Cardiology at [address] [address] Estiven Raza MD [facility] [place] [address] documented as of this encounter Procedures Procedure Name Priority Date/Time Associated Diagnosis Comments EKG 12-LEAD Routine 05/04/2020 8:55 AM EDT Hypertension, unspecified type documented in this encounter Results * Carotid Duplex, Bilateral (05/04/2020 9:47 AM EDT) VB Text Report Department: Vascular Surgery Lab Patient: [id number] (THANH GONZALEZ) CPT: 37550 ICD10: I65.23;I77.9 Referring Physician: HERMINIO CHAVEZ ?? [...] AM EDT Herminio Chavez MD VASCULAR ORDERABLES Performing Organization Address [facility] de Phone Number VASCUBASE * EKG 12 Lead (05/04/2020 8:55 AM EDT) Ventricular rate 63 BPM MUSE SYSTEM Atrial Rate 63 BPM MUSE SYSTEM P-R Interval 138 ms MUSE SYSTEM QRS Duration 68 ms MUSE SYSTEM Q-T Interval 426 ms MUSE SYSTEM QTC Calculated (Bezet) 435 ms MUSE SYSTEM Calculated P [place] 76 degrees MUSE SYSTEM Calculated R [place] 66 degrees MUSE SYSTEM Calculated T [place] 68 degrees MUSE SYSTEM INTERPRETATION Normal sinus rhythm Normal ECG When compared with ECG of 02-APR-2018 13:33, No significant change was found Confirmed by MD MIKE, JOSH ([id number]) on 05/04/2020 5:49:47 PM MUSE SYSTEM 05/04/2020 8:55 AM EDT 05/04/2020 5:49 PM EDT Herminio Chavez MD ECG ORDERABLES Performing Organization Address [facility] Co de Phone Number [employer] SYSTEM documented in this encounter Visit Diagnoses Diagnosis Hypertension, unspecified type Bilateral carotid artery disease, unspecified type documented in this encounter Care Teams Wirer Maintenance Relationship Specialty Start Date End Date John Diaz MD [address] [place] [address] PCP - General 12/22/14 07/18/21 documented as of this encounter
--- OUTSIDE RECORDS SUMMARY | 2024-05-02 13:58 | XMS_ITS | Encounter Summary ---
Author Organization [facility] Address [facility] [place] [address] Care Team Providers Care Business Unit Leader Name Role Phone John Diaz MD Primary Care Provider Reason for Visit * Reason Comments Follow-up COPD Encounter Details Date Type Department Care Team (Latest Contact Info) Description 03/27/2019 2:00 PM EDT Office [place] [phone] Sam Monzon MD [facility] [place] [address] Acute exacerbation of chronic obstructive airways disease; Coronary artery disease, angina presence unspecified, unspecified vessel or lesion type, unspecified whether [place] or transplanted heart; Stage 2 moderate COPD by GOLD classification [...] Sign Reading Time Taken Comments Blood Pressure 133/55 03/27/2019 1:45 PM EDT Pulse 66 03/27/2019 1:45 PM EDT Temperature 37.2 ??C (99 ??F) 03/27/2019 1:45 PM EDT Respiratory Rate 24 03/27/2019 1:45 PM EDT Oxygen Saturation 93% 03/27/2019 1:45 PM EDT Inhaled Oxygen Concentration - - Weight 70.8 kg (156 lb) 03/27/2019 1:45 PM EDT Height 152.4 cm (5') 03/27/2019 1:45 PM EDT Body Mass Index 30.47 03/27/2019 1:45 PM EDT documented in this encounter Progress Notes * Sam Monzon MD - 03/27/2019 2:00 PM EDT [facility] Section of Pulmonary Medicine COPD Clinic Follow Up Date of Encounter: 03/27/2019 PCP: John Diaz MD [address] [place] [address] Reason for Visit: Follow Up COPD Background: ?? GOLD 2 COPD ?? Ex smoker, quit 2005 - 35 year + smoking history ?? Hospitalized for COPD exacerbation at [facility], October 2018 Interval History: I saw Thanh Gonzalez in the pulmonary clinic today. Overall she is doing well with her COPD with stable exertional dyspnea and only occasional sputum production. However she is coughing frequently. This seems to start as a tickle in the back of her throat it is persistent and occasionally leads tourinary incontinence. In addition lately she is felt a little stuffed up in her sinuses and has hada mild headache for a day or 2. No fevers or chills, no nasal discharge. She has been little more wheezy the last few days. Symptom Scoring: CAT Responses 05/16/2018 06/17/2018 Cough [...] needed for Wheezing. Use with spacer ??? tiotropium-olodaterol (STIOLTO RESPIMAT) 2.5-2.5 mcg/actuation Mist Inhale 2 puffs into the lungs daily. 4 g 11 ??? acetaminophen (TYLENOL) 325 mg Tablet Take [...] daily as needed. 2 each 11 ??? predniSONE (DELTASONE) 20 mg Tablet Take 2 tablets by mouth daily. (Patient not taking: Reported on 03/27/2019) 10 tablet 0 ??? tiotropium-olodaterol (STIOLTO RESPIMAT) 2.5-2.5 mcg/actuation Mist Inhale 2 puffs into the lungs daily. (Patient not taking: Reported on 03/27/2019) 4 g 0 ??? aspirin 81 mg Tablet, Delayed Release (E.C.) Take 1 tablet by mouth daily. (Patient not taking:Reported on 03/27/2019) 30 tablet 3 No current facility-administered medications for this visit. [...] quittin.1 ??? Smokeless tobacco: Never Used Substance and [...] file Gets together: Not on file Attends christian service: Not on file Active member of [...] Narrative Apr 2012: lives in [place], [place] ([facility]) partner: Apollo Dumont (d. 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) tobacco: D/C'd ~ 2004 p ~ 30 pack-yrs. EtOH: rare/none 1 dog in home, keeps chickens and a beefalo; raising turkeys for Thanksgiving. martha lawn, uses weedwhacker Family History: Family History [...] ??? Pneumococcal Polyvalent 23 05/08/2014 Examination: BP 133/55 Pulse 66 Temp 37.2 ??C (99 ??F) Resp 24 Ht 152.4 cm (5') Wt 70.8 kg (156 lb) SpO2 93% BMI 30.47 kg/m?? General: Comfortable at rest HEENT: No [...] Office Visit from 05/16/2018 in Pulmonology at [facility] P[facility] Results FEV1 (L) 0.95 [...] or 1 A B 2 or more Omero Martinez Thanh Gonzalez is overall doing fairly well with her COPD. She may have the beginnings of an exacerbation, perhaps some sinusitis with postnasal drip but now increased wheezing. I have asked her to stop prednisone in the next couple of days if things do not improve spontaneously. If her persistentcough continues for another month or so I will consider repeat chest imaging but her exam today wasunremarkable. Plan: 1. Medications Daily: Stiolto 2 puffs [...] PM EDT Office Visit Cardiology at [address] [address] Estiven Raza MD [facility] [place] [address] documented as of this encounter Visit Diagnoses Diagnosis Acute exacerbation of chronic obstructive airways disease Obstructive chronic bronchitis with exacerbation Coronary artery disease, angina presence unspecified, unspecified vessel or lesion type, unspecified whether [place]ut[place] or transplanted heart Stage 2 moderate COPD by GOLD classification documented in this encounter Care Teams Business Unit Leader Relationship Specialty Start Date End Date John Diaz MD [address] [facility] [place] [address] PCP - General 12/22/14 07/18/21 documented as of this encounter
--- OUTSIDE RECORDS SUMMARY | 2024-05-02 13:58 | XMS_ITS | Encounter Summary ---
Author Organization [facility] Address [facility] [place] [address] Care Team Providers Care Qa Automation Engineer Name Role Phone John Diaz MD Primary Care Provider [phone] Reason for Visit * Reason Comments Medication Refill Encounter Details Date Type Department Care Team (Late st Contact Info) Description 06/20/2020 Ref[place] [phone] Marquis Guan MD [facility] [place] [address] Stage 2 moderate COPD by GOLD classification [...] 2:00 PM EDT Office Visit Cardiology at [address] [phone] Estiven Raza MD [facility] [place] [address] documented as of this encounter Visit Diagnoses Diagnosis Stage 2 moderate COPD by GOLD classification documented in this encounter Care Teams Qa Automation Engineer Relationship Specialty Start Date End Date John Diaz MD [address] [place] [address] PCP - General 12/22/14 07/18/21 documented as of this encounter
--- OUTSIDE RECORDS SUMMARY | 2024-05-02 13:58 | XMS_ITS | Encounter Summary ---
Author Organization [facility] Address [facility] [place] [address] Care Team Providers Care Displayer Name Role Phone Gabby Castaneda Alcira DE LA FUENTE Primary Care Provider [phone] Reason for Visit * Diagnostic Test (Routine) - Closed Specialty Diagnoses / Procedures Referred By Rangel t Referred To Contact Diagnoses Bilateral carotid artery stenosis Procedures Carotid Duplex, Bilateral Herminio Chavez MD [facility] [place] [address] [facility] Vascular Lab [address] [place] [address] Referral ID Status Reason Start Date Expiration Date V isits Requested Visits Authorized [id number] Closed Specialty Service Requested 07/19/2021 07/19/2022 1 1 Encounter Details Date Type Department Care Team (Late st Contact Info) Description 03/01/2022 1:30 PM EDT Tech [place] [address] [place] Bilateral carotid artery stenosis Social History Tobacco [...] 2:00 PM EDT Office Visit Cardiology at [address] [place] [address] [facility] [place] [address] documented as of this encounter Procedures Procedure Name Priority Date/Time Associated Diagnosis Comments CAROTID DUPLEX, BILATERAL Routine 03/01/2022 1:09 PM EDT Bilateral carotid artery stenosis documented in this encounter Results * Carotid Duplex, Bilateral (03/01/2022 1:09 PM EDT) VB Text Report Department: Vascular Surgery Lab Patient: [id number] (THANH GONZALEZ) CPT: 00153 Referring Physician: HERMINIO CHAVEZ ?? Indications: 71 [...] infarction documented in this encounter Care Teams Displayer Relationship Specialty Start Date End Date Gabby Castaneda APRN [address] [place] [address] PCP - General Family Medicine 07/19/21 04/30/23 documented as of this encounter
--- OUTSIDE RECORDS SUMMARY | 2024-05-02 13:58 | XMS_ITS | Encounter Summary ---
Author Organization [facility] Address [facility] [place] [address] Care Team Providers Care Change Number Operator Name Role Phone John Diaz MD Primary Care Provider [phone] Encounter Details Date Type Department Care Team (Late st Contact Info) Description 03/22/2021 [place] [address] Alka Pedro LPN Social History Tobacco Use Types Packs/Day Years [...] encounter Miscellaneous Notes * Telephone Encounter - Alka Pedro LPN - 03/22/2021 3:29 PM EDT I reviewed Thanh's voicemail from earlier today. She reports she would like a refill of her COPD medications, and to return her call. I called Thanh on her requested call back number, leaving a message asking her to return my call when she is available at [phone] to clarify what she needs. documented in this encounter Plan of Treatment Upcoming Encounters Date Type Department Care Team (Late st Contact Info) Description 05/29/2024 2:00 PM EDT Office Visit Cardiology at [address] [address] Estiven Raza MD [facility] [place] [address] documented as of this encounter Visit Diagnoses Not on filedocumented in this encounter Care Teams Change Number Operator Relationship Specialty Start Date End Date John Diaz MD [address] [facility] 1 [place] [address] PCP - General 12/22/14 07/18/21 documented as of this encounter
--- OUTSIDE RECORDS SUMMARY | 2024-05-02 13:58 | XMS_ITS | Encounter Summary ---
Author Organization [facility] Address [facility] [place] [address] Care Team Providers Care Manager Primary Name Role Phone John Diaz MD Primary Care Provider [phone] Encounter Details Date Type Department Care Team (Late st Contact Info) Description 12/12/2019 [place] [phone] Esther Spain Social History Tobacco Use Types [...] PM EDT Office Visit Cardiology at [address] [phone] Estiven Raza MD [facility] [place] [address] documented as of this encounter Visit Diagnoses Not on filedocumented in this encounter Care Teams Manager Primary Relationship Specialty Start Date End Date John Diaz MD [address] [place] [address] PCP - General 12/22/14 07/18/21 documented as of this encounter
--- OUTSIDE RECORDS SUMMARY | 2024-05-02 13:58 | XMS_ITS | Encounter Summary ---
Author Organization [facility] Address [facility] [place] [address] Care Team Providers Care Gill Box Operator Name Role Phone John Diaz MD Primary Care Provider [phone] Reason for Visit * Reason Onset Date Comments Medication Refill 06/14/2020 Encounter Details Date Type Department Care Team (Late st Contact Info) Description 06/14/2020 Refill Cardiology at [address] [address] Dionte Chavez MD [facility] [place] [address] Medication Refill Social History Tobacco Use Types [...] Telephone Encounter - Tiffany David RN - 06/14/2020 11:51 AM EST Received incoming call from pharmacy stating that patient has been taking furosemide - 20 mg one tablet daily. Her Rx was for 10 mg= 0.5 mg daily- but pills are hard to split so patient has been taking one whole tablet. Pharmacy requesting new Rx for accurate current dose. Reviewed Dr. Chvaez's plan per his 05/04/20 office note-- FROM 05/04/20: No evidence of ischemia. On [...] advancing the furosemide to 20 mg QD. F/u- 1 year Call then made to the patient since she had not yet contacted this office as requested. Mrs. Gonzalez confirms that she has been taking 20 mg furosemide daily .. She does feel that her breathing has improved some with the furosemide and therefore would like to continue on the 20 mg daily dosage. She denies any dizziness, states that she has not lost any weight and that her BP/P has been goodalthough she did not have any numbers to share. She does not have any edema in her LE- but states this has never been of concern. Advised patient that I will submit a new order for the furosemide 20 [address] daily [address] Chavez. If he is not agreeable to the increase either he or I will call her back. Patient verbalized her understanding and agreement to this plan. She has no other specific concerns at this time. Patient medication record corrected to reflect the change above. Call to pharmacist who was made aware of the action above Patient knows how to contact Cardiology office and understands she may do so at any time with further questions or concerns.\ Tiffany Davdi RN, BSN Ambulatory Cardiology Department documented in this encounter Plan of Treatment Upcoming Encounters Date Type Department Care Team (Late st Contact Info) Description 05/29/2024 2:00 PM EDT Office Visit Cardiology at [address] [place] [address] Estiven Raza MD [facility] [address] [place] [address] documented as of this encounter Visit Diagnoses Not on filedocumented in this encounter Care Teams Gill Box Operator Relationship Specialty Start Date End Date John Diaz MD [address] [facility] 1 [place] [address] PCP - General 12/22/14 07/18/21 documented as of this encounter
--- OUTSIDE RECORDS SUMMARY | 2024-05-02 13:58 | XMS_ITS | Encounter Summary ---
Author Organization Formerly [facility], [facility] Address [facility] [place] [address] Care Team Providers Care Cellular Plastics Cutter Name Role Phone John Diaz MD Primary Care Provider [phone] Reason for Visit * Reason Comments Medication Refill Encounter Details Date Type Department Care Team (Late st Contact Info) Description 06/21/2021 Refill Cardiology at [address] [address] Dionte Chavez MD [facility] [place] [address] Medication Refill Social History Tobacco Use Types [...] Telephone Encounter - Hillary Reese RN - 06/22/2021 5:11 PM EST JHONNY: 12/27/20 Per assessment and Plan: RODRIGUEZ: No compelling evidence that it is secondary to active ischemia, heart failure or an arrhythmia. I think it is a combination of her COPD and deconditioning. I strongly recommended that she trial home oxygen. We discussed using the treadmill at least every other day, starting slowly and buildingup her conditioning. She declined a referral to our arc and gas welder Next f/u visit scheduled for: 07/19/21 Hillary Reese maintenance services dispatcher Clinic at [facility] [phone] documented in this encounter Plan of Treatment Upcoming Encounters Date Type Department Care Team (Late st Contact Info) Description 05/29/2024 2:00 PM EDT Office Visit Cardiology at [address] [phone] Estiven Raza MD [facility] CARDIOLOGY [place] [phone] documented as of this encounter Visit Diagnoses Diagnosis Coronary artery disease involving seminole coronary artery, unspecified whether angina present, unspecified whether seminole or transplanted heart documented in this encounter Care Teams Cellular Plastics Cutter Relationship Specialty Start Date End Date John Diaz MD [address] [place] [address] PCP - General 12/22/14 07/18/21 documented as of this encounter
--- OUTSIDE RECORDS SUMMARY | 2024-05-02 13:58 | XMS_ITS | Encounter Summary ---
Author Organization Formerly [facility] [place] [address] Care Team Providers Care Engine Specialist Name Role Phone John Diaz MD Primary Care Provider [phone] Encounter Details Date Type Department Care Team (Late st Contact Info) Description 03/16/2021 Telephone [place] [address] Sid Chowdhury PA [address] [place] [address] Social History Tobacco Use Types Packs/Day Years [...] encounter Miscellaneous Notes * Telephone Encounter - Sid Chowdhury PA - 03/16/2021 1:56 PM EDT Spoke with daughter discussed xrays No medical changes documented in this encounter Plan of Treatment Upcoming Encounters Date Type Department Care Team (Late st Contact Info) Description 05/29/2024 2:00 PM EDT Office Visit Cardiology at [address] [address] Estiven Raza MD [facility] [place] [address] documented as of this encounter Visit Diagnoses Not on filedocumented in this encounter Care Teams Engine Specialist Relationship Specialty Start Date End Date John Diaz MD [address] [address] PCP - General 12/22/14 07/18/21 documented as of this encounter
--- OUTSIDE RECORDS SUMMARY | 2024-05-02 13:58 | XMS_ITS | Encounter Summary ---
Author Organization [facility] Address [facility] [place] [address] Care Team Providers Care Refrigerating Engineer Name Role Phone John Diaz MD Primary Care Provider [phone] Encounter Details Date Type Department Care Team (Late st Contact Info) Description 08/08/2018 Telephone Pulmonology at [facility] [place] [address] Juan Venegas Social History Tobacco Use Types Packs/Day Years [...] encounter Miscellaneous Notes * Telephone Encounter - Juan Venegas - 08/08/2018 2:42 PM EST Patient called to cancel/ reschedule appointment with Dr. Monzon. She does not like to drive by herself early in the morning, and prefers afternoon appts. Appointment rescheduled for 10/17 at 3:00pm. documented in this encounter Plan of Treatment Upcoming Encounters Date Type Department Care Team (Late st Contact Info) Description 05/29/2024 2:00 PM EDT Office Visit Cardiology at [address] [address] Estiven Raza MD [facility] [place] [address] documented as of this encounter Visit Diagnoses Not on filedocumented in this encounter Care Teams Refrigerating Engineer Relationship Specialty Start Date End Date John Diaz MD [address] [place] [address] PCP - General 12/22/14 07/18/21 documented as of this encounter
--- OUTSIDE RECORDS SUMMARY | 2024-05-02 13:58 | XMS_ITS | Encounter Summary ---
Author Organization [facility] [place] [address] Care Team Providers Care Parking Meter Attendant Name Role Phone Gabby Castaneda SUDHAKAR Primary Care Provider [phone] Encounter Details Date Type Department Care Team (Late st Contact Info) Description 08/31/2021 Telephone Cardiology at [address] [phone] Hillary Reese, RN Social History Tobacco Use Types Packs/Day [...] Telephone Encounter - Hillary Reese RN - 08/31/2021 2:59 PM EST VM from patient to report blood pressures. TC to patient, who reports the following blood pressurestaken in the mornings. 07/26/21 165/85 07/27/21 156/77 07/28/21 129/64 07/29/21 163/90 07/29/21 3 hours later 136/72 07/30/ 145/80 07/31 139/74 08/05/21 150/70 08/10/21 127/78 08/30/21 139/72 at PCP office Per chart review furosemide is listed as 20mg daily, she states it was increased at her last visit.She states she has been out of her furosemide for a couple of days. She has noticed some swelling, but not much. Does not monitor her weight denies sob or other symptoms, states she feels reallygood. Will route note to provider for review and recommendations. Hillary Reese painter spray Clinic at [facility] [phone] documented in this encounter Plan of Treatment Upcoming Encounters Date Type Department Care Team (Late st Contact Info) Description 05/29/2024 2:00 PM EDT Office Visit Cardiology at [address] [phone] Estiven Raza MD [facility] DR CARDIOLOGY [place] [phone] documented as of this encounter Visit Diagnoses Diagnosis Coronary artery disease involving cata[place] coronary artery, unspecified whether angina present, unspecified whether cata[place]ba or transplanted heart documented in this encounter Care Teams Parking Meter Attendant Relationship Specialty Start Date End Date Gabby Castaneda APRN [address] [place] [address] PCP - General Family Medicine 07/19/21 04/30/23 documented as of this encounter
--- OUTSIDE RECORDS SUMMARY | 2024-05-02 13:59 | XMS_ITS | Encounter Summary ---
Author Organization [facility] Address [facility] [place] [address] Care Team Providers Care Bottle Cleaner Name Role Phone John Diaz MD Primary Care Provider [phone] Reason for Visit * Reason Onset Date Comments Medication Refill 03/04/2018 Angie thompson Encounter Details Date Type Department Care Team (Late st Contact Info) Description 03/04/2018 Refill Cardiology at [address] [address] Griselda Ziegler, BUS VAN DRIVER [facility] [place] [address] Medication Refill (Dupneb solution) Social History Tobacco Use Types Packs/Day Years [...] encounter Miscellaneous Notes * Telephone Encounter - Aurelia Thompson RN - 03/04/2018 10:42 AM EDT Pharmacist at [facility] calling to request ICD 10 code be included on the prescription sig: line so they can bill medicare part B. Prescription prepared for AUDELIA Ziegler to review, sign and will be e-scribed to the [facility]. documented in this encounter Plan of Treatment Upcoming Encounters Date Type Department Care Team (Late st Contact Info) Description 05/29/2024 2:00 PM EDT Office Visit Cardiology at [address] [phone] Estiven Raza MD [facility] [place] [address] documented as of this encounter Visit Diagnoses Diagnosis Chronic obstructive pulmonary disease, unspecified COPD type documented in this encounter Care Teams Bottle Cleaner Relationship Specialty Start Date End Date John Diaz MD [address] [place] [address] PCP - General 12/22/14 07/18/21 documented as of this encounter
--- OUTSIDE RECORDS SUMMARY | 2024-05-02 13:59 | XMS_ITS | Encounter Summary ---
Author Organization [facility] Address [facility] [place] [address] Care Team Providers Care Enrolled Nurse Name Role Phone John Diaz MD Primary Care Provider [phone] Encounter Details Date Type Department Care Team (Latest Contact Info) Description 04/02/2018 12:20 PM EDT Laboratory Appointment Lab [address] [place] [address] Hypertension, unspecified type; NSTEMI (non-ST elevated myocardial infarction) Social History Tobacco Use Types Packs/Day Years [...] PM EDT Office Visit Cardiology at [address] [phone] Estiven Raza MD [facility] [place] [address] documented as of this encounter Procedures Procedure Name Priority Date/Time Associated Diagnosis Comments BASIC METABOLIC PANEL STAT 04/02/2018 12:29 PM EDT Hypertension, unspecified type NSTEMI (non-ST elevated myocardial infarction) documented in this encounter Results * (ABNORMAL) Basic Metabolic Panel (non-fasting) (04/02/2018 12:29 PM EDT) Glucose 102 65 - 199 mg/dL [facility] Comment:Diabetes: >=200 mg/d L plus symptoms Blood Urea Nitrogen 13 8 - 18 mg/dL [facility] Creatinine 1.08 0.70 - 1.20 mg/dL [facility] Sodium 141 135 - 145 mmol/L [facility] Potassium 3.9 3.5 - 5.0 mmol/L [facility] Comment: Please note: ??Patients with WBC >100,000 may have falsely elevated Potassium levels. ??For accurate Potassium quantification in these patients send serum separator tube (gold top) for subsequent determinations. ??Contact the Clinical Chemistry Laboratory if there are any questions. Chloride 100 98 - 107 mmol/L [facility] Carbon Dioxide 27 22 - 31 mmol/L [facility] Anion Gap 14 5 - 15 mmol/L [facility] Calcium 9.4 8.5 - 10.5 mg/dL [facility] Est Glomerular Filtration Rate 52(L) >=60 mL/min/1. 73 m?? [facility] Comment: The eGFR was calculated using the CKD-EPI equation. As with all creatinine based estimates of kidney function, eGFR values calculated with the CKD-EPI equation are not accurate in patients with acute kidney failure, extremes of body mass or the acutely ill. [email or web address] eGFR 61 >=60 mL/min/1. 73 m?? [facility] Comment: The eGFR was calculated using the CKD-EPI equation. As with all creatinine based estimates of kidney function, eGFR values calculated with the CKD-EPI equation are not accurate in patients with acute kidney failure, extremes of body mass or the acutely ill. [email or web address] Blood specimen (specimen) 04/02/2018 12:29 PM EDT 04/02/2018 12:42 PM EDT Narrative Resulting Agency Comment Spec In Lab Dionte Chavez MD CHEMISTRY ORDERABLES [facility] [place] [address] documented in this encounter Visit Diagnoses Diagnosis Hypertension, unspecified type NSTEMI (non-ST elevated myocardial infarction) Acute myocardial infarction, subendocardial infarction, episode of care unspecified documented in this encounter Care Teams Enrolled Nurse Relationship Specialty Start Date End Date John Diaz MD [address] [place] [address] PCP - General 12/22/14 07/18/21 documented as of this encounter
--- OUTSIDE RECORDS SUMMARY | 2024-05-02 13:59 | XMS_ITS | Encounter Summary ---
Author Organization [facility] Address [facility] [place] [address] Care Team Providers Care Brand Strategy Manager Name Role Phone John Diaz MD Primary Care Provider [phone] Reason for Visit * Consultation (Routine) - Closed Specialty Diagnoses / Procedures Referred By Rangel weldon Referred To Contact Pulmonology Diagnoses Other emphysema Griselda Ziegler APRN [facility] [place] [address] [facility] [place] Pulmonology [address] [place] [phone] Referral ID Status Reason Start Date Expiration Date V isits Requested Visits Authorized [id number] Closed Consult, Test & Treat 03/03/2018 03/03/2019 1 1 Encounter Details Date Type Department Care Team (Late st Contact Info) Description 05/16/2018 1:00 PM EDT Office [place] [address] Sam Monzon MD [facility] PULMONARY [place] [address] Marilyn Collazo, RT Healthcare maintenance; Stage 2 moderate COPD by GOLD classification; Ex-smoker Social History [...] Sign Reading Time Taken Comments Blood Pressure 126/52 05/16/2018 1:05 PM EDT Pulse 70 05/16/2018 1:05 PM EDT Temperature - - Respiratory Rate 20 05/16/2018 1:05 PM EDT Oxygen Saturation 98% 05/16/2018 1:05 PM EDT Inhaled Oxygen Concentration - - Weight 68 kg (150 lb) 05/16/2018 1:05 PM EDT Height 151.9 cm (4' 11.8) 05/16/2018 1:05 PM ED T Body Mass Index 29.49 05/16/2018 1:05 PM EDT documented in this encounter Patient Instructions * Patient Instructions* Sam Monzon MD - 05/16/2018 1:00 PM EDT Good seeing you in clinic today. You have Stage 2 / Stage 3 COPD. Although that sounds scary I think there is a lot we can do for your COPD and if we work on the plan as outlined below I think you will do well. Please call our office on [phone] and ask for nurse if you have any questions. For more information about COPD try our website: [email or web address] All the bestSam MD 1. Medications Daily: Stiolto 2 puffs daily As needed: Albuterol or Combivent 2. Exacerbation prevention Avoid sick contacts, wash hands, wear mask as needed 3. Sick plan Prednisone 40mg for 5 days Azithromycin for 5 days Call our office for medications as needed 4. Sleep evaluation 5. Advanced directives 6. Smoking cessation Done - congratulations 7. Pulmonary rehabilitation Practice pursed lip breathing during PT sessions 8. Oxygen 9. Immunizations Check with Dr Diaz whether you have had PCV-13 (Prevnar 13) 10. Lung cancer screening CT Chest ordered 11. LVRS / Transplant 12. Palliative care 13. A1AT Testing Done today 14. Other documented in this encounter Progress Notes * Sam Monzon MD - 05/16/2018 1:00 PM EDT [facility] Section of Pulmonary Medicine COPD Clinic Consultation Date of Encounter: 05/16/2018 Referring Provider: Griselda Ziegler Aprn [facility] [place] [address] PCP: John Diaz MD [address] [place] [address] Reason for Consult: I was asked to evaluate this patient for COPD management. I have personally interviewed and examined the patient. I have independently viewed her radiographic studies, pulmonary function testing and laboratory data. HPI: I saw Thanh Gonzalez in the COPD clinic today. Juanjose has significant emphysema and GOLD stage II or III COPD. I reviewed her pulmonary function tests from 2012 and her FEV1 postbronchodilator was around 57% it looks like she had a minimal decrease in her pulmonary function since then and I am pleased to say that her main symptom is really exertional dyspnea with very little in the way of cough o r sputum. She estimates 1 exacerbation requiring antibiotics of prednisone each year. She still really fairly independently mobile walking significant distances every day. She is currently participating in physical therapy due to an shoulder injury and enjoying the PT very much. She is never done aformal pulmonary rehab program and did not know about pursed lip breathing. Medication to date is open short-acting bronchodilator either albuterol or Combivent. She is using nebulizer from time to time and has tried the Pulmicort inhaler without much clinical benefit. Of all the inhalers she thinks the Combivent works best. Symptom Scoring: CAT Responses 05/16/2018 Cough 2 Phleg/Mucus in chest 2 Tightness in chest 1 Breathlessness 5 Limited doing activities 3 Confident leaving home 0 Sleep 0 Lots of energy 1 CAT Scores 14 (Medium) Review of Systems: No fevers or chills, weight stable. She does get anxious from time to time says she is occasionallywheezy at no excessive daytime sleepiness. No real exertional chest pain although she is known to have coronary artery disease. She had a non- ST elevation myocardial infarction a couple of months agothere was some question as to whether that was linked to the use of a cannabis oil. She since stopped using that and has had no further problems. No ankle swelling. She has lupus but this appears to be under good control currently Past Medical History: Past Medical History: Diagnosis [...] Date: 2006 ??? TONSILLECTOMY Medications: Current Outpatient Prescriptions Medication Sig Dispense Refill ??? acetaminophen (TYLENOL) 325 mg Tablet Take [...] by mouth daily. 30 tablet 3 ??? PROAIR HFA 90 mcg/actuation HFA Aerosol Inhaler Inhale 2 puffs into the lungs 2 times daily. ??? PULMICORT FLEXHALER 180 mcg/actuation Aerosol Powdr Breath Activated daily as needed. ??? lisinopril (PRINIVIL;ZESTRIL) 2.5 mg Tablet daily. [...] into the lungs daily. 4 g 0 No current facility-administered medications for this visit. Allergies: Hymenoptera allergenic extract and Other [unclassified drug] Social History: Social History Social History ??? Marital status: Spouse name: N/A ??? Number of children: N/A ??? Years of education: N/A Occupational History ??? retired Social History Main Topics ??? Smoking status: Former Smoker Packs/day: 1.00 Years: 30.00 Types: Cigarettes Quit date: 02/16/2005 ??? Smokeless tobacco: Never Used ??? Alcohol use Yes Comment: 1 beer every 2-3 weeks, rare use ??? Drug use: Yes Special: Marijuana Comment: medical marijuana card ??? Sexual activity: Not on file Other Topics Concern ??? Abuse Or Threat: Help Requested By Patient No ??? Abuse Or Threat: Physical, Sexual, Verbal No ??? Back Care No ??? Bike Helmet No ??? Blood Transfusions No ??? Caffeine Concern No ??? Exercise No ??? Exercise: Patient Reported No ??? Hobby Hazards No ??? Service No ??? Occupational Exposure Yes ??? Poor Oral Hygiene No ??? Seat Belt Yes ??? Second-Hand Smoke Exposure No ??? Self-Exams No ??? Sleep Concern No ??? Special Diet No ??? Stress Concern No ??? Violence Concern No ??? Weight Concern No Social History Narrative Apr 2012: lives in [place], [place] ([facility]) partner: Apollo Dumont (d. 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 mows lawn, uses weedwhacker Family History: Family [...] ??? Pneumococcal Polyvalent 23 05/08/2014 Examination: BP 126/52 Pulse 70 Resp 20 Ht 151.9 cm (4' 11.8) Wt 68 kg (150 lb) SpO2 98% BMI 29.49 kg/m2 General: Comfortable at rest HEENT: No cervical lymphadenopathy, no oral thrush Mallampati 2 Resp: Hyperinflated, chest expansion equal Resonant to percussion with vesicular breath sounds throughout No crackles or wheeze CV: S1 + S2 + O [...] Office Visit from 05/16/2018 in Pulmonology at [facility] PFT Results FEV1 (L) 0.95 liters FEV1 [...] A B 2 or more C D Thanhjohn Gonzalez has moderate COPD that is predominantly emphysema phenotype with very little in theway of chronic bronchitis. I think things most likely to improve her exertional dyspnea at the use of long-acting dual bronchodilator. I prescribed as Stiolto today and we will see if this has been effective when I see her next time. She was instructed in the use of this inhaler by our respiratory therapist, Marilyn Collazo, who also taught to the pursed lip breathing technique. I think she would benefit from a pulmonary rehab program but unfortunately there is nothing close to her house. She will continue with her physical therapy regimen and practice pursed lip breathing during this. I think she should have a CT to screen for lung cancer and to identify the distribution of her emphysema. Ultimately she may be a candidate for bronchoscopic lung volume reduction if her dyspnea worsens over time. I am actually hopeful the long-term prognosis is good with very little decrease in pulmonary function over the last 5 years. Today we addressed the following points of the plan below and the patient was provided with a written copy at checkout. Over time we aim to address all items on the checklist that are relevant to thepatient Plan: 1. Medications Daily: Stiolto 2 puffs [...] PCV-13 (Prevnar 13) 10. Lung cancer screening CT Chest ordered 11. LVRS / Transplant 12. Palliative care 13. A1AT Testing Done today 14. Other Follow up: 1 month Thank you for referring this patient to the COPD clinic. Sam Monzon MD During today???s visit, I determined that the patient meets the [place] Preventive Services Task Force eligibility criteria for lung cancer screening. We reviewed the [facility] Lung Cancer Screening Decision Aid (two-page fact sheet) and discussed the following benefits and harms. ??? Earlier detection and treatment and reduced mortality from lung cancer. ??? False positive results, overdiagnosis of lung cancer and radiation risk. We discussed the impact of co-morbidities on the benefit of screening and the patient???s ability and willingness to undergo invasive diagnostic procedures and treatment that might follow a positive screening result. I also counseled the patient on the importance of adherence to annual lung cancer screening and the importance of not smoking. * Corby Pang RN - 05/16/2018 1:00 PM EDT 1. Medications: Combivent Respimat 20-100 mcg/actuation mist, Plaquenil 200mg, DuoNeb, ProAir HFA, Pulmicort Flexhaler 180mcg/act,Stiolto Respimat2. Exacerbation prevention: 3. Sick plan: 4. Sleep evaluation: 5. Advanced directives: 6. Smoking cessation: Quit 11 years ago 7. Pulmonary rehabilitation: 8. Oxygen 9. Immunizations Allergy to TDAP, Flu, Pneumonia vax 10. Lung cancer screening Eligible 11. LVRS / Transplant 12. Palliative care 13. A1AT TestingSample obtained 05/16/18 14. Other- * Marilyn Collazo RT - 05/16/2018 1:00 PM EDT MDI/DPI instruction for Thanh Gonzalez: Inspiratory Flows Resistance via Incheck dial Peak Inspiratory Flow Rate in LPM Low resistance ( MDI/Respimat): 1) 90 Reviewed MDI with open mouth technique: Thanh Gonzalez Able to demonstrate verbalize correctly, Inspiratory flow after instruction: 55 lpm -*Respimat: Reviewed assembly, priming and technique: Thanh Gonzalez Able to demonstrate ability to prime and proper technique of Respimat, Reviewed importance of priming initially and re-priming MDI HFA if not used within 2 weeks. Reviewed order of inhalers: Proair 2 puffs or Combivent Respimat 1 puff every 4-6 hours as needed and 10-15 minutes prior to exercise or PT - Stiolto Respimat 2 puffs once a day BREATHING EXERCISES: Introduced concept of Pursed lip breathing to Thanh Gonzalez She was able to demonstrate pursed lip breathing at rest. She noted decreased dyspnea utilizing pursed lip breathing at rest. Plan to practice this at rest and then with ambulation, activity. documented in this encounter Plan of Treatment Upcoming Encounters Date Type Department Care Team (Late st Contact Info) Description 05/29/2024 2:00 PM EDT Office Visit Cardiology at [address] [phone] Estiven [place] MD [facility] [place] [address] documented as of this encounter Visit Diagnoses Diagnosis Healthcare maintenance Routine general medical examination at a health care facility Stage 2 moderate COPD by GOLD classification Ex-smoker Personal history of tobacco use, presenting hazards to health documented in this encounter Care Teams Brand Strategy Manager Relationship Specialty Start Date End Date John Diaz MD [address] [place] [address] PCP - General 12/22/14 07/18/21 documented as of this encounter
--- OUTSIDE RECORDS SUMMARY | 2024-05-02 13:59 | XMS_ITS | Encounter Summary ---
Author Organization [facility] Address [facility] [place] [address] Care Team Providers Care Product Manager Name Role Phone John Diaz MD Primary Care Provider [phone] Encounter Details Date Type Department Care Team (Late st Contact Info) Description 04/30/2018 11:00 AM EDT Office [place] [address] Jaleesa Sawyer MD [facility] [place] [address] Systemic lupus erythematosus, unspecified SLE type, unspecified organ involvement status; Chronic left shoulder pain Social History Tobacco Use Types Packs/Day Years [...] Sign Reading Time Taken Comments Blood Pressure 138/58 04/30/2018 10:51 AM EDT Pulse 56 04/30/2018 10:51 AM EDT Temperature 36.5 ??C (97.7 ??F) 04/30/2018 10:51 AM E DT Respiratory Rate - - Oxygen Saturation 96% 04/30/2018 10:51 AM EDT Inhaled Oxygen Concentration - - Weight 67.6 kg (149 lb) 04/30/2018 10:51 AM EDT Height 149.9 cm (4' 11) 04/30/2018 10:51 AM EDT Body Mass Index 30.04/30/2018 10:51 AM EDT documented in this encounter Progress Notes * Jaleesa Sawyer MD - 04/30/2018 11:00 AM EDT Rheumatology Outpatient Follow-up Note Rheum Hx: [...] disorder, and SLEwho presents today in f/u. Thanh reports that she had a NSTEMI this summer. Has been followed by cardiology. EF was normal, no flow limiting CAD on cath. Thought is that it was due to vasospasm. Thanh reports that she has been taking oral medical marijuana and she noticed some tightness in her chest when she first started taking it, with every time that she was taking it. One day this summer she was running to th ar due to rain and hw got very short of breath, used her inhaler and took a sublingual lorazepam for her COPD but it too 10 minutes for the sxs to improve but the sxs lasted hours. She went to the ER and was transferred to [facility]. Amlodipine was added to her med list to help prevent vasospasm. Thanh reports that she has had an intermittent ache in the left clavicle which typically occurs atrest, 30-60 minutes at a time. No associated SOB, nausea, or weakness. No left arm pain/numbness. She broke the left arm a few years ago and she continues to go to PT for left shoulder pain - wondersif it has to do with her shoulder pain, which she continues to have with lifting the arm up above her shoulder. This has been ongoing for a few months, maybe before her NSTEMI, but continues after amlodipine was added to her med list. She has not mentiond this to Dr. Chavez but will call to do that today. Thanh remains on plaquenil 200mg daily. ROS: No fevers/chills No mouth sores No Ocular sxs No rash +chronic diarrhea No sxs Otherwise negative Patient's [...] (-)gout, (-)psoriasis, (-)MS Social History: Lives in [place], [place]. She has 5 children. She has 3 grandchildren. She has 2 children who live in [place]. She has 3 of her boys who live with her. Tobacco - quit 10 years ago Etoh - has a beer once in a while Drugs - none Physical Examination: BP 138/58 Pulse 56 Temp 36.5 ??C (97.7 ??F) (Oral) Ht 149.9 cm (4' 11) Wt 67.6 kg (149 lb) SpO2 96% BMI 30.09 kg/m2 General: AAOx3, NAD HEENT: Mucous membranes are moist, no oral mucosal ulcerations, geographic tongue. Neck: Supple, no lymphadenopathy Cardiovascular: RRR, (-)murmurs, rubs, or gallops. Lungs: Diminished air movement bilaterally. Expiratory wheeze throughout. Abdomen: Soft, nontender, nondistended, normal active bowel sounds. Neuro: Alert and oriented x3. Normal gait. Telangiectasias and spider angiomas on palms Extremities: Shoulders: FROM, non-tender to palpation. Left [...] 07/10/2017 Lab Results Component Value Date SEDRATE 11 07/10/2017 Studies: MRI lumbar spine from October 2017 - [facility] djd L4-5 and L5-12. Mild neural foraminal narrowing at L5-S1 bilat. Eidural lipomatosis causing severe narrowing of the central canal from the L4 -5 through S1 levels. Impression: Thanh Gonzalez is a 67 y.o. female with COPD, hx of seizures, hypothyroid, and SLE who presents today in f/u. Recent NSTEMI without significant CAD and EF wnl. Suspected coronary spasm and placed onlow-dose amlodipine. Left shoulder aching at times - I wonder if this is related to coronary vasospasm, and wonder if she may benefit from increasing the dose (her BP could likely handle it and might help her raynaud's)? Although could just be her shoulder causing her pain (as she did break her upper arm 2 years ago). I've also advised against med marijuana use as its effect on the heart is not entirely clear (?arrhythmias have been reported). Pt will be sure to report her left shoulder aching to cardiology so that they are aware. Recommendations: - continue plaquenil 200mg daily - SLE labs today - ?vasospasm as etiology for her intermittent left clavicular aching, and ?need to increase amlodipine, but will defer to cardiology. - f/u in 6 months for SLE CC: John Diaz MD documented in this encounter Miscellaneous Notes * Addendum Note - Megha Swanson - 04/30/2018 12:01 PM EDTAddended by: MEGHA SWANSON on: 04/30/2018 12:01 PM Modules accepted: Orders documented in this encounter Plan of Treatment Upcoming Encounters Date Type Department Care Team (Late st Contact Info) Description 05/29/2024 2:00 PM EDT Office Visit Cardiology at [address] [phone] Estiven [place] MD [facility] [place] [address] documented as of this encounter Procedures Procedure Name Priority Date/Time Associated Diagnosis Comments CRP, ACUTE INFLAMMATION Routine 04/30/2018 12:11 PM EDT Systemic lupus erythematosus, unspecified SLE type, unspecified organ involvement status SEDIMENTATION RATE Routine 04/30/2018 12 :11 PM EDT Systemic lupus erythematosus, unspecified SLE type, unspecified organ involvement status C3 COMPLEMENT Routine 04/30/2018 12:11 PM EDT Systemic lupus erythematosus, unspecified SLE type, unspecified organ involvement status C4 COMPLEMENT Routine 04/30/2018 12:11 PM EDT Systemic lupus erythematosus, unspecified SLE type, unspecified organ involvement status documented in this encounter Results * CRP, acute inflammation (04/30/2018 12:11 PM EDT) C-Reactive Protein 3.6 <=4.9 mg/L [facility] Blood specimen (specimen) 04/30/2018 12:11 PM EDT 04/30/2018 12:32 PM EDT Narrative Resulting Agency Comment Spec In Lab Jaleesa Sawyer MD CHEMISTRY ORDERABLES Performing Organization Address City/[facility]/ZIP Co de Phone Number [facility] [place] [address] * C3 Complement (04/30/2018 12:11 PM EDT) Complement C3 123 90 - 180 mg/dL [facility] Blood specimen (specimen) 04/30/2018 12:11 PM EDT 04/30/2018 12:32 PM EDT Narrative Resulting Agency Comment Spec In Lab Jaleesa Sawyer MD CHEMISTRY ORDERABLES Performing Organization Address City/[facility]/ZIP Co de Phone Number [facility] [place] [address] * C4 Complement (04/30/2018 12:11 PM EDT) Complement C4 25 10 - 40 mg/dL [facility] Blood specimen (specimen) 04/30/2018 12:11 PM EDT 04/30/2018 12:32 PM EDT Narrative Resulting Agency Comment Spec In Lab Jaleesa Sawyer MD CHEMISTRY ORDERABLES Performing Organization Address City/[facility]/ZIP Co de Phone Number [facility] [place] [address] * Sedimentation rate (04/30/2018 12:11 PM EDT) Sedimentation Rate Automated 9 0 - 20 mm/hr [facility] Blood specimen (specimen) 04/30/2018 12:11 PM EDT 04/30/2018 12:32 PM EDT Narrative Resulting Agency Comment Spec In Lab Jaleesa Sawyer MD HEMATOLOGY ORDERABLE S [facility] [place] [address] documented in this encounter Visit Diagnoses Diagnosis Systemic lupus erythematosus, unspecified SLE type, unspecified organ involvement status Chronic left shoulder pain Pain in joint, shoulder region documented in this encounter Care Teams Product Manager Relationship Specialty Start Date End Date John Diaz MD [address] [place] [address] PCP - General 12/22/14 07/18/21 documented as of this encounter
--- OUTSIDE RECORDS SUMMARY | 2024-05-02 13:59 | XMS_ITS | Encounter Summary ---
Author Organization [facility] Address [facility] [place] [address] Care Team Providers Care Transitional Nurse Name Role Phone John Diaz MD Primary Care Provider [phone] Encounter Details Date Type Department Care Team (Latest Contact Info) Description 02/28/2018 - 02/28/2018 11:59 PM EDT Hospital Encounter Radiology Library at [facility] [place] [address] Dionte Chavez MD [facility] [place] [address] Discharge Disposition: Home Social History Tobacco Use Types Packs/Day Years Used Date Smoking Tobacco: Former Cigarettes 1 30 0 02/16/1975 - 02/16/2005 Smokeless Tobacco: Never Alcohol Use Standard Drinks/Week Comments No 0 (1 standard drink = 0.6 oz pur e alcohol) Sex and Gender Information Value Date Recorded Sex Assigned at Not on file Gender Identity Not on file Sexual Orientation Not on file documented as of this encounter Medications at Time of Discharge Medication Sig Dispensed Refills Start Date End Date atorvastatin (LIPITOR) 40 mg Tablet Take 1 tablet by mouth every evening. 30 tablet 2 03/03/2018 gabapentin (NEURONTIN) 300 mg Capsule TAKE ONE CAPSULE BY MOUTH EVERY MORNING AND 2 CAPSULES AT BEDTIME 270 capsule 3 02/24/2015 LORazepam (ATIVAN) 1 mg TabletIndications:Anx iety,Insomnia 1 tab at HS as needed for [...] muscle daily as needed. 2 each 12/31/2013 triamterene-hydrochlo rothiazide (DYAZIDE) 37.5-25 mg Capsule daily. 12/26/2017 amLODIPine (NORVASC) 2.5 mg Tablet Take 1 tablet by mouth daily. 30 tablet 2 03/04/2018 09/27/2022 ipratropium-albuterol (DUONEB) 0.5 mg-3 mg(2.5 mg base)/3 mL Solution for Nebulization Take 0.5 mg by nebulization every 8 hours as needed. 1 Box 4 03/03/2018 03/04/2018 furosemide (LASIX) 20 mg Tablet Take 1 tablet by mouth daily. 30 tablet 03/04/2018 04/30/2018 nitroGLYcerin (NITROSTAT) 0.4 mg Tablet, Sublingual Place 1 tablet under the tongue every 5 minutes as needed for Chest pain. 25 tablet 3 03/03/2018 03/27/2019 predniSONE (DELTASONE) 20 mg Tablet Take 2 tablets by mouth daily. 4 tablet 03/04/2018 04/30/2018 metoprolol succinate (TOPROL-XL) 25 mg Tablet Sustained Release 24 hr Take 1 tablet by mouth daily. 30 tablet 2 03/03/2018 03/14/2022 aspirin 81 mg Tablet, Delayed Release (E.C.) Take 1 tablet by mouth daily. 30 tablet 3 03/03/2018 04/02/2019 PROAIR HFA 90 mcg/actuation HFA Aerosol Inhaler Inhale 2 puffs into the lungs 2 times daily. 05/12/2017 06/17/2018 PULMICORT FLEXHALER 180 mcg/actuation Aerosol Powdr Breath Activated daily as needed. 05/04/2017 06/17/2018 lisinopril (PRINIVIL;ZESTRIL) 2.5 mg Tablet Take 2.5 mg by mouth daily. 07/03/2017 03/14/2022 hydroxychloroquine (PLAQUENIL) 200 mg Tablet Take 1 tablet by mouth daily. 90 tablet 0 02/12/2015 07/19/2021 triamterene-hydrochlo rothiazide (MAXZIDE-25) 37.5-25 mg Tablet TAKE ONE-HALF TABLET BY MOUTH DAILY 45 tablet 4 05/25/2014 03/03/2018 documented as of this encounter Plan of Treatment Upcoming Encounters Date Type Department Care Team (Late st Contact Info) Description 05/29/2024 2:00 PM EDT Office Visit Cardiology at [address] [phone] Estiven Raza MD [facility] [place] [address] documented as of this encounter Procedures Procedure Name Priority Date/Time Associated Diagnosis Comments FILM LIBRARY STORAGE ONLY DX CHEST Routine 02/28/2018 12:00 AM EDT documented in this encounter Results * Film Library- Storage Only DX Chest (02/28/2018 12:00 AM EDT) Narrative [facility] - 03/06/2018 11:22 AM EDT This exam is for storage only and is auto-finalizing. Dionte Chavez MD IMG FILM LIBRARY ORD ERABLES [place], [place] documented in this encounter Visit Diagnoses Not on filedocumented in this encounter Care Teams Transitional Nurse Relationship Specialty Start Date End Date John Diaz MD [address] [place] [address] PCP - General 12/22/14 07/18/21 documented as of this encounter
--- OUTSIDE RECORDS SUMMARY | 2024-05-02 13:59 | XMS_ITS | Encounter Summary ---
Author Organization [facility] [place] [address] Care Team Providers Care Slasher Machine Operator Name Role Phone John Diaz MD Primary Care Provider [phone] Reason for Referral * Consultation (Routine) - Closed Specialty Diagnoses / Procedures Referred By Contact Referred To Contact Cardiac Rehabilitation Diagnoses NSTEMI (non-ST elevated myocardial infarction) Cydney Ziegler APRN [facility] [address] Cardiac Rehab, [address] [place] [address] Referral ID Status Reason Start Date Expiration Date V isits Requested Visits Authorized [id number] Closed Consult, Test & Treat 03/03/2018 03/03/2019 36 36 * Consultation (Routine) - Closed Specialty Diagnoses / Procedures Referred By Rangel weldon Referred To Contact Pulmonology Diagnoses Other emphysema Cydney Ziegler APRN [facility] [address] [facility] Pulmonology [address] [place] [id number] Referral ID Status Reason Start Date Expiration Date V isits Requested Visits Authorized [id number] Closed Consult, Test & Treat 03/03/2018 03/03/2019 1 1 Reason for Visit * Auth/Cert Specialty Diagnoses / Procedures Referred By Rangel t Referred To Contact Diagnoses NSTEMI (non-ST elevated myocardial infarction) NSTEMI NSTEMI Procedures CARDIAC CATHETERIZATION Referral ID Status Reason Start Date Expiration Date Visits Re quested Visits Authorized [id number] 1 1 Encounter Details Date Type Department Care Team (Latest Contact Info) Description 03/01/2018 12:43 PM EDT - 03/03/2018 12:42 PM EDT Hospital Encounter Intermediate [place] [id number] Dionte Chavez MD [facility] [place] [address] Non-ST elevation myocardial infarction (NSTEMI); Other emphysema; Hypertension, unspecified type; NSTEMI (non-ST elevated myocardial infarction) Discharge Disposition: Home Social History Tobacco Use [...] Sign Reading Time Taken Comments Blood Pressure 127/48 03/03/2018 11:35 AM EDT Pulse 58 03/03/2018 11:35 AM EDT Temperature 36.9 ??C (98.4 ??F) 03/03/2018 1 1:35 AM EDT Respiratory Rate 18 03/03/2018 11:3 5 AM EDT Oxygen Saturation 96% 03/03/2018 11: 35 AM EDT Inhaled Oxygen Concentration - - Weight 67.1 kg (147 lb 14.9 oz) 03/03/2018 6:55 AM EDT Height 149.9 cm (4' 11) 03/01/2018 12: 45 PM EDT Body Mass Index 29.88 03/01/2018 12:45 PM EDT documented in this encounter Discharge Summaries * Cydney Ziegler APRN - 03/03/2018 12:29 PM EDT Discharge Summary Patient Name: Thanh Johnson Patient Age: 67 y.o. Language: Monegasque Race: White Ethnicity: Not nor Admit date: 03/01/2018 Discharge date and time: 03/03/2018 12:30 PM Attending Physician: Dionte Chavez MD Discharge Physician: Dionte Chavez MD Follow-up Recommendations for Providers: 1. NSTEMI, suspected coronary vasospasm: started amlodipine 2.5 mg, low dose beta della 2. LVEDP 20 on cath, continued on lasix 20 mg at discharge. Could consider stopping diuretic at next follow up if continues without signs of fluid overload. 3. COPD: short course of prednisone at discharge 4. TSH 4.73, no changes made to synthroid, recommend re-check in 4-6 weeks after acute hospitalization 5. Cardiac rehab consult Inpatient Provider Contact Information: CYDNEY ZIEGLER APRN Discharge Diagnoses (Hospital Problems) and Secondary Diagnoses (Chronic Problems): Active Hospital Problems Diagnosis ??? NSTEMI (non-ST elevated myocardial infarction) Resolved Hospital Problems Diagnosis Date Resolved No resolved problems to display. Active Non-Hospital Problems Diagnosis ??? Epidural lipomatosis ??? Spinal stenosis of lumbar region with radiculopathy ??? Hx of adenomatous colonic polyps ??? Hypothyroid ??? Alopecia ??? Adult ADHD ??? Anxiety ??? COPD (chronic obstructive pulmonary disease) ??? Hypertension ??? Insomnia ??? Seizure disorder ??? Systemic lupus erythematosus ??? Osteopenia Operations/Major Procedures: Operations: Procedure(s) with comments: CARDIAC CATHETERIZATION - Procedure: Coronary Angiography 03/02/18: final report pending ?? Preliminary Cardiac Catheterization Procedure Note: ?? Procedure(s) performed:??Coronary Angiography ?? Baseline Frailty Assessment: 3 (MANAGING WELL)??Definitions from [employer] Health and Aging Clinical Frailty Scale: ? A time-out was conducted prior to the??start of the procedure to verify the correct patient and procedure, procedure location, and all relevant critical information. ?? Access:?Right femoral artery ?? Preliminary findings: Femoral Angio: ?Insertion site in the mid common femoral artery Coronary Angiography: Anatomically normal right dominant circulation ?? LMCA:?Without angiographic apparent disease LAD:?With out angiographic apparent disease LCx:?Wi thout angiographic apparent disease RCA:?With out angiographic apparent disease ?? LVEDP:?~20 mmHg ?? Contrast:?<30 ml ?? History of Presentation: Ms. Thanh Johnson is a 67 year old female with no know hx of CAD, but with PMH significant for HTN,former smoker (1-2 PPD, quit 11 years ago), COPD- non O2 dependent, lupus, and with hx of seizure disorder who presents from [facility] for further evaluation and management of an NSTEMI. She states that two days ago she was out running errands, carrying a rug from a store to her car at which time she developed what she describes as a mid-left sided chest pressure similar in character to what she has felt in the past with anxiety, however more severe and rated as an 8/10. The chest pressure did not radiate but was associated with moderate dyspnea which led her to believe that she was experiencing aCOPD exaverbation. She was able to locate and use her albuterol inhaler, and after about 10 minutesher chest pressure decreased to a 2/10 from a 8/10. ?? She denies any recent fevers, chills, changes in weight, swelling to her abdomen or legs, palpitations, or lightheadedness/near syncope. ?? Hospital Course: On admission to [facility], the patient had no complaints of chest pain or shortness of breath. Telemetry was attached which showed normal sinus rhythm. Heparin drip was infusing. [facility] records/transfer records were reviewed. Baseline labs were checked and/or drawn. NSTEMI, suspected coronary vasospasm She was transferred to [facility] for NSTEMI, and was previously loaded with aspirin and plavix at OSH. Given the patient's risk factors, presentation, and positive biomarkers (0.19, 0.20), it was decided to proceed with coronary angiography. The patient went to the cardiac aquatic life laborer for a diagnostic cathwhich showed normal coronary arteries, LVEDP 20. Echocardiogram demonstrated a preserved EF and no WMAs. Given her clean coronaries, plavix was stopped. It was suspected that her event and NSTEMI were secondary to coronary vasospasm, and she was started on low dose amlodipine. She was continued on aspirin 81 mg and low dose beta della Acute CHF, LVEDP 20 Her Pro BNP 3796 on arrival and she had bibasilar crackles. Lasix IV 40 mg daily was started with good results. LVEDP 20 on cath. Echo with preserved EF, normal left sided filling pressures. She was transitioned to oral Lasix 20 mg daily, though this medication should be reassessed at her next follow up visit. If she continues in a euvolemic state after discharge, she may not require further diuretic therapy. Education provided on a low sodium/no added salt diet.? COPD, acute on chronic She was noted to have scattered wheezing during her hospitalization. She was maintained on her COPDregimen through nebulizer administration. She was able to maintain her oxygen levels in the mid 90sat rest and with ambulation on day of discharge. A short burst of prednisone was provided (5 day course) as she was not quite at her baseline. She admitted to not having seen pulmonary in over a year, and this was encouraged as close follow up. Provided with erma at discharge. Hyperlipidemia Lipid profile completed at OSH showed total cholesterol 205 with LDL 118. Her 10 year ASCVD risk was calculated to be 12.5% and she was started on atorvastatin 40 mg. Hypertension BP: (100-132)/(34-82) were her blood pressure trends prior to discharge. Routine screening labs revealed the following: TSH 4.73 A1c 5.8% (OSH level) The patient tolerated supervised ambulation in the hallway and up/downstairs with no anginal symptoms. It was recommended that the patient return home and participate in a supervised cardiac rehab program. The patient was discharged home in stable condition. Functional and Cognitive Status: Alert and oriented x 3, ambulatory-independent. Important Studies and Lab Data: Labs: Lab Results Component Value Date WBC 9.0 03/03/2018 HGB 13.6 03/03/2018 HCT 40.6 03/03/2018 PLATELET 218 03/03/2018 Recent Labs 03/01/18 1416 INR 1.0 Lab Results Component Value Date NA 140 03/03/2018 K 4.3 03/03/2018 CL 100 03/03/2018 CO2 27 03/03/2018 BUN 16 03/03/2018 CREATININE 0.96 03/03/2018 Recent Labs 03/02/18 0356 TSH 4.73* No results for input(s): HA1C in the last 7068 hours. Recent Labs 03/01/18200603/01/18 1416 CK 282* 219* TROPONINT 0.20* 0.19* Studies: CXR at OSH 02/28/18: 1. COPD, 2. Tiny left medial basilar lung opcity likely chronic atelectasis versus scar. A tiny infiltrate is not excluded. ?? Echo 03/02/18: Indication: ?NSTEMI Rhythm: ?Sinus BP: ?134/58 ?? SUMMARY: ?? 1. Basal septal hypertrophy is observed. ??There is normal global left ventricular systolic function. ??The quantitative left ventricular ejection fraction by biplane Medina's method is 73%. ??There are no left ventricular segmental wall motion abnormalities. 2. Right ventricular chamber size, wall thickness, and systolic function are within normal limits. 3. There is no hemodynamically significant valve disease. 4. See remainder of report for additional findings. ? Pending Studies and Lab Data: None Discharge Conditions/Prognosis: Able to ambulate nursing unit without acute shortness of breath or chest pressure. Discharge to: Home Updated Allergies/ADRs: Allergies Allergen Reactions ??? Bee Pollen Hives Immunizations Given this Hospitalization: Immunization History Administered Date(s) Administered ??? Influenza PF, Split 05/08/2014 ??? Influenza Vaccine w/Preservative, Split 05/02/2011, 04/22/2013 ??? Influenza Vaccine, Whole 06/07/2010 ??? Pneumococcal Polyvalent 23 05/08/2014 Discharge Medications: Your Medications New Medications Dose Details amLODIPine 2.5 mg Tab Commonly known as: NORVASC Take 1 tablet by mouth daily. Start taking on: 03/04/2018 2.5 mg Quantity: 30 tablet Refills: 2 aspirin 81 mg Tbec Take 1 tablet by mouth daily. 81 mg Quantity: 30 tablet Refills: 3 atorvastatin 40 mg Tab Commonly known as: LIPITOR Take 1 tablet by mouth every evening. 40 mg Quantity: 30 tablet Refills: 2 furosemide 20 mg Tab Commonly known as: LASIX Take 1 tablet by mouth daily. Start taking on: 03/04/2018 20 mg Quantity: 30 tablet Refills: 0 metoprolol succinate 25 mg Tablet sr Commonly known as: TOPROL-XL Take 1 tablet by mouth daily. 25 mg Quantity: 30 tablet Refills: 2 nitroGLYcerin 0.4 mg Subl Commonly known as: NITROSTAT Place 1 tablet under the tongue every 5 minutes as needed for Chest pain. 0.4 mg Quantity: 25 tablet Refills: 3 predniSONE 20 mg Tab Commonly known as: DELTASONE Take 2 tablets by mouth daily. Start taking on: 03/04/2018 40 mg Quantity: 4 tablet Refills: 0 Continued medications with new dosing Dose Details citalopram 20 mg Tab Commonly known as: CeleXA TAKE ONE TABLET BY MOUTH EVERY DAY What changed: See the new instructions. Quantity: 90 tablet Refills: 3 * COMBIVENT RESPIMAT 20-100 mcg/actuation Mist INHALE ONE PUFF BY MOUTH FOUR TIMES A DAY Generic drug: ipratropium-albuterol What changed: Another medication with the same name was added. Make sure you understand how and when to take each. Quantity: 4 Inhaler Refills: 11 * ipratropium-albuterol 0.5 mg-3 mg(2.5 mg base)/3 mL Nebu Commonly known as: DUONEB Take 0.5 mg by nebulization every 8 hours as needed. What changed: You were already taking a medication with the same name, and this prescription was added. Make sure you understand how and when to take each. 3 mL Quantity: 1 Box Refills: 4 * Notice: This list has 2 medication(s) that are the same as other medications prescribed for you. Read the directions carefully, and ask your doctor or other care provider to review them with you. Continued medications, unchanged Dose Details EPINEPHrine 0.3 mg/0.3 mL Atin Commonly known as: EPIPEN Inject 0.3 mLs into the muscle daily as needed. 0.3 mg Quantity: 2 each Refills: 11 gabapentin 300 mg Cap Commonly known as: NEURONTIN TAKE ONE CAPSULE BY MOUTH EVERY MORNING AND 2 CAPSULES AT BEDTIME Quantity: 270 capsule Refills: 3 hydroxychloroquine 200 mg Tab Commonly known as: PLAQUENIL Take 1 tablet by mouth daily. 200 mg Quantity: 90 tablet Refills: 0 levothyroxine 50 mcg Tab Commonly known as: SYNTHROID Take 1 tablet by mouth daily. 50 mcg Quantity: 90 tablet Refills: 3 lisinopril 2.5 mg Tab Commonly known as: PRINIVIL;ZESTRIL daily. Refills: 0 LORazepam 1 mg Tab Commonly known as: ATIVAN 1 tab at HS as needed for sleep. May take 1 tab during the day for anxiety if needed. Quantity: 30 tablet Refills: 0 PROAIR HFA 90 mcg/actuation Hfaa Inhale 2 puffs into the lungs 2 times daily. Generic drug: albuterol 2 puff Refills: 0 PULMICORT FLEXHALER 180 mcg/actuation Aepb daily as needed. Generic drug: budesonide Refills: 0 STOPPED Medications triamterene-hydrochlorothiazide 37.5-25 mg Tab Commonly known as: MAXZIDE-25 Smoking Status at Discharge: History Smoking Status ??? Former Smoker ??? Packs/day: 1.00 ??? Years: 30.00 ??? Types: Cigarettes ??? Quit date: 02/16/2005 Smokeless Tobacco ??? Never Used Instructions Given to Patient at Discharge: There are no outpatient Patient Instructions on file for this admission. General Instructions Call your doctor if: Chest pain, shortness of breath, pain or swelling in legs occurs. If you have non-emergent questions between now and the time of your follow up appointments: During 8am-5pm Sunday through Sunday call [phone] to speak with a nurse in the cardiology clinic All other times call [phone] and ask to speak to the secretary to board of commissioners solution developer. Return to work: Retired Driving: No driving for 48 hours after catheterization. Follow up Appointments: PCP John Diaz MD [phone] Diaz's office on Sunday to schedule a post hospital follow up in 7-10 days. Cardiology You will be contacted with this appointment. Labs: 1. Please have lab work checked in 1 week at your local lab, non fasting. Future Appointments and Orders Future Appointments Provider Department Dept Phone 04/30/2018 11:00 AM Jaleesa Sawyer MD [facility] [place] [phone] Future Orders Complete By Expires Basic Metabolic Panel (non-fasting) [LAB15 Custom] 03/10/2018 03/04/2019 Process Instructions: Scheduling Instructions: Comments: Questions: Referral to Cardiac Rehab [EOQ672 Custom] As directed Process Instructions: If no progress note charted, please enter Clinical details in comments. Scheduling Instructions: Questions: My question or request is: NSTEMI, likely coronary vasospasm Referral to Pulmonology [REF94 Custom] As directed Process Instructions: If no progress note charted, please enter Clinical details in comments. Scheduling Instructions: Questions: My question or request is: hx of COPD, would like to establish with [facility] pulm Discharge References/Attachments Sunshine Ziegler APRN Cardiovascular Medicine 03/03/2018 documented in this encounter Discharge Instructions * Discharge Instructions* Cydney Ziegler APRN - 03/03/2018 12:21 PM EDT Call your doctor if: Chest pain, shortness of breath, pain or swelling in legs occurs. If you have non-emergent questions between now and the time of your follow up appointments: During 8am-5pm Sunday through Sunday call [phone] to speak with a nurse in the cardiology clinic All other times call [phone] and ask to speak to the secretary to board of commissioners solution developer. Return to work: Retired Driving: No driving for 48 hours after catheterization. Follow up Appointments: PCP John Diaz MD [phone] Diaz's office on Sunday to schedule a post hospital follow up in 7-10 days. Cardiology You will be contacted with this appointment. Labs: 1. Please have lab work checked in 1 week at your local lab, non fasting. documented in this encounter Medications at Time of Discharge [...] daily as needed. 2 each 11 12/31/2013 triamterene-hydrochlo rothiazide (DYAZIDE) 37.5-25 mg Capsule [...] 02/12/2015 07/19/2021 documented as of this encounter Progress Notes * Helen Walters RN - 03/03/2018 12:42 PM EDT Pt d/c to home per md order. Patient AOx4 hrr, lung sounds with expiratory wheezes, pt will follow up with pulmonology, no n/v current sob or chest pain at time of discharge +bs, lbm 03/01, voiding clear yellow urine. Patient ambulating independently at this time. Denying pain. All LDA's removed. All belongings home with patient. Prescriptions faxed to patient pharmacy, all discharge instructions reviewed with patient. All questions answered. Please see flowsheet for full assessment. HELEN WALTERS RN * Dionte Chavez MD - 03/03/2018 9:45 AM EDT Inpatient Cardiology Progress Note Patient Name: Thanh Johnson Service: SURG RN / PA Responsible Attending: Dionte Chavez MD Reason for continued hospitalization: Evaluation and management of NSTEMI S/p cardiac catherization Suspected coronary vasospasm Discharge home today Active Problems: Active Hospital Problems Diagnosis ??? NSTEMI (non-ST elevated myocardial infarction) Resolved Hospital Problems Diagnosis Date Resolved No resolved problems to display. Interval History: Uneventful night with no chest pain/pressure. Does have some ongoing wheezing in her lungs. She admits she has not see her quality assurance monitor final in over a year, but has had to use prednisone for her COPD at least once this year. Review of Systems: Review of Systems Constitutional: Negative for activity change, fever and unexpected weight change. Respiratory: Positive for shortness of breath (exertional) and wheezing. Negative for cough. Cardiovascular: Negative for chest pain, palpitations and leg swelling. Gastrointestinal: Negative for abdominal pain and nausea. Neurological: Negative for dizziness, weakness and light-headedness. All other systems reviewed and are negative. Telemetry: Heart Rate: [69-83] sinus rhythm Meds: Scheduled Meds: ??? amLODIPine 2.5 mg Oral Daily ??? predniSONE 40 mg Oral Daily ??? furosemide 20 mg Oral Daily ??? citalopram 40 mg Oral Daily ??? gabapentin 300 mg Oral QAM ??? hydroxychloroquine 200 mg Oral Daily ??? levothyroxine 50 mcg Oral QAM ??? lisinopril 2.5 mg Oral Daily ??? aspirin 81 mg Oral Daily ??? clopidogrel 75 mg Oral Daily ??? metoprolol tartrate 12.5 mg Oral 2 times per day ??? gabapentin 600 mg Oral Nightly ??? budesonide 250 mcg Nebulization Daily ??? ipratropium-albuterol 3 mL Nebulization Q6H ??? atorvastatin 80 mg Oral QPM Continuous Infusions: ??? heparin (porcine) 750 Units/hr (03/01/18 1815) PRN Meds:midazolam (PF), atropine, fentaNYL (PF), nitroGLYcerin, acetaminophen, heparin (porcine) AND heparin (porcine), albuterol Physical Exam: Vital Signs: Last value Range last 48 hrs Temperature Temp: 37 ??C (98.6 ??F) Temp: [36.4 ??C (97.5 ??F)-37.2 ??C (99 ??F)] Heart Rate Heart Rate: 83 Heart Rate: [52-83] Blood Pressure BP: 131/82 BP: (100-142)/(34-82) Respiratory Rate Resp: 18 Resp: [16-20] SpO2 SpO2: 95 % SpO2: [88 %-100 %] Patient Vitals for the past 168 hrs: Weight 03/03/18 0655 67.1 kg (147 lb 14.9 oz) 03/02/18 0706 67.9 kg (149 lb 11.1 oz) 03/01/18 1245 68.7 kg (151 lb 7.3 oz) Intake/Output Summary (Last 24 hours) at 03/03/18 0945 Last data filed at 03/03/18 0900 Gross per 24 hour Intake 1678 ml Output 2050 ml Net -372 ml Physical Exam Constitutional: She is oriented to person, place, and time. She appears well- developed and well-nourished. No distress. HENT: Head: Normocephalic and atraumatic. Neck: Normal range of motion. Cardiovascular: Normal rate, regular rhythm, normal heart sounds and intact distal pulses. Exam reveals no gallop and no friction rub. No murmur heard. Pulmonary/Chest: Effort normal. No respiratory distress. She has wheezes (scattered expiratory ). She has rales (mild bibasilar). Abdominal: Soft. She exhibits no distension. Musculoskeletal: Normal range of motion. She exhibits no edema or tenderness. Neurological: She is alert and oriented to person, place, and time. Skin: Skin is warm. She is not diaphoretic. Psychiatric: She has a normal mood and affect. Nursing note and vitals reviewed. Lab Comments: Recent Labs 03/03/18 0505 03/02/18 0356 03/01/18 1737 WBC 9.0 13.0* 15.9* HGB 13.6 13.7 14.6 HCT 40.6 40.6 44.1 PLATELET 218 238 261 Recent Labs 03/01/18 1416 INR 1.0 Recent Labs 03/03/18 0505 03/02/18 0633 03/02/18 0356 03/01/18 1416 NA 140 -- 141 141 K 4.3 3.5 Not Perf 4.0 CL 100 -- 98 99 CO2 27 -- 25 27 BUN 16 -- 23* 15 CREATININE 0.96 -- 0.93 0.79 No results for input(s): AST, ALT, ALKPHOS, BILITOT, BILIDIR in the last 168 hours. Recent Labs 03/03/18 0505 03/02/18 0356 03/01/18 1416 CALCIUM 8.7 8.7 9.1 Recent Labs 03/01/18200603/01/18 1416 CK 282* 219* TROPONINT 0.20* 0.19* Pertinent Radiographic/Diagnostic Results: I have independently visualized the following studies: ECG 03/03/2018: sinus rhythm, with slightTWI in V1-V CXR at OSH 02/28/18: 1. COPD, 2. Tiny left medial basilar lung opcity likely chronic atelectasis versus scar. A tiny infiltrate is not excluded. Echo 03/02/18: Indication: NSTEMI Rhythm: Sinus BP: 134/58 SUMMARY: 1. Basal septal hypertrophy is observed. There [...] See remainder of report for additional findings. Cardiac catheterization 03/02/18: final report pending ?? Preliminary Cardiac Catheterization Procedure Note: Procedure(s) performed: Coronary Angiography Baseline Frailty Assessment: 3 (MANAGING WELL) Definitions from [employer] Health and Aging Clinical Frailty Scale: A time-out was conducted prior to the start of the procedure to verify the correct patient and procedure, procedure location, and all relevant critical information. Access: Right femoral artery Preliminary findings: Femoral Angio: Insertion site in the mid common femoral artery Coronary Angiography: Anatomically normal right dominant circulation LMCA: Without angiographic apparent disease LAD: Without angiographic apparent disease LCx: Without angiographic apparent disease RCA: Without angiographic apparent disease LVEDP: ~20 mmHg Contrast: <30 ml Assessment: Thanh Johnson is a 67 y.o. female with no know hx of CAD, but with PMH significant for HTN, former smoker (1-2 PPD, quit 11 years ago), COPD- non O2 dependent, lupus, and with hx of seizure disorder who presents from [facility] for further evaluation and management of an NSTEMI. She is s/p C which demonstrated normal coronaries and an LVEDP of 20. An echocardiogram was completed post cath and noted a preserved EF, normal left sided filling pressures, and no WMAs. It is suspected that her event and NSTEMI are secondary to coronary vasospasm, and she will be started on low dose amlodipine. She continues with scattered wheezing, partially relieved by nebulizer treatments. Will have her complete a 5 day course of prednisone, and have advised she have close follow up with pulmonary. Anticipate discharge home today. Plan: NSTEMI, suspected coronary vasospasm Troponin I 1-->2 at [facility] Troponin T's 0.19, 0.20 Chest pain free at this time Normal coronaries Echo with preserved EF, no WMAs Heparin drip off Aspirin 325mg and Plavix 300 mg given at OSH on 02/28 at 1707 Continue aspirin, metoprolol, high dose statin Stop Plavix PRN nitro for chest pain Acute CHF, LVEDP 20 Pro BNP 3796 on arrival Echo with preserved EF, normal left sided filling pressures Give oral Lasix 20 mg today Continue beta della, ANTHONY-I Strict I+Os, daily weights, 2 gm sodium diet ?? HTN BP: (106-132)/(42-82) Continue metoprolol, lisinopril Hold home Maxzide dose ?? COPD, acute on chronic Continues with scattered wheezing Stable on room air Will give short burst of prednisone Duo nebs q 6 PRN albuterol neb Budesonide neb daily (in place of home Pulmicort inhaler) Advise close pulm follow up outpatient ?? Hx of systemic lupus Continue plaquenil ?? Hx of seizure disorder Maintain safety precautions Continue gabapentin at home dose ?? Leukocytosis, resolved WBC trending down, now 9 Initially received prednisone at OSH No signs/symptoms consistent with infectious process Chest xray at OSH showed evidence of COPD ? CODE STATUS: FULL CODE Discussed with Dionte Chavez MD Amanda King, APRN Cardiovascular Medicine 03/03/2018 STAFF ADDENDUM Patient interviewed and examined. Medical record reviewed. I agree with the Intercurrent History Past Medical History Physical Exam Objective Data Assessment and Plan as detailed by A.King DE LA FUENTE, with whom the patient was interviewed, examined, and discussed, with the following additions and/or exceptions. No recurrent chest pain/pressures. Some ongoing wheezing. Tolerating medications. Up and ambulating without difficulty. On pulmonary exam there are rales but scattered expiratory wheezing. Would treat with a short course of prednisone. Should have an outpatient appointment with Pulmonary to optimize her COPD management. Safe for discharge. * Dionte Chavez MD - 03/02/2018 7:17 AM EDT Inpatient Cardiology Progress Note Patient Name: Thanh Johnson Service: SURG RN / PA Responsible Attending: Dionte Chavez MD Reason for continued hospitalization: Evaluation and management of NSTEMI Awaiting cardiac catherization Active Problems: Active Hospital Problems Diagnosis ??? NSTEMI (non-ST elevated myocardial infarction) Resolved Hospital Problems Diagnosis Date Resolved No resolved problems to display. Interval History: Uneventful night with no chest pain/pressure. Does have some ongoing heaviness in her lungs with occasional wheezing. Review of Systems: Review of Systems Constitutional: Negative for activity change, fever and unexpected weight change. Respiratory: Positive for shortness of breath (exertional) and wheezing. Negative for cough. Cardiovascular: Negative for chest pain, palpitations and leg swelling. Gastrointestinal: Negative for abdominal pain and nausea. Neurological: Negative for dizziness, weakness and light-headedness. All other systems reviewed and are negative. Telemetry: Heart Rate: [58-64] sinus rhythm and sinus bradycardia Meds: Scheduled Meds: ??? citalopram 40 mg Oral Daily ??? gabapentin 300 mg Oral QAM ??? hydroxychloroquine 200 mg Oral Daily ??? levothyroxine 50 mcg Oral QAM ??? lisinopril 2.5 mg Oral Daily ??? aspirin 81 mg Oral Daily ??? clopidogrel 75 mg Oral Daily ??? metoprolol tartrate 12.5 mg Oral 2 times per day ??? gabapentin 600 mg Oral Nightly ??? budesonide 250 mcg Nebulization Daily ??? ipratropium-albuterol 3 mL Nebulization Q6H ??? atorvastatin 80 mg Oral QPM Continuous Infusions: ??? heparin (porcine) 750 Units/hr (03/01/18 181) PRN Meds:nitroGLYcerin, acetaminophen, heparin (porcine) AND heparin (porcine), albuterol Physical Exam: Vital Signs: Last value Range last 48 hrs Temperature Temp: 36.7 ??C (98.1 ??F) Temp: [36.4 ??C (97.5 ??F)-36.7 ??C (98.1 ??F)] Heart Rate Heart Rate: (P) 58 Heart Rate: [55-64] Blood Pressure BP: (P) 128/67 BP: (101-138)/(40-62) Respiratory Rate Resp: (P) 20 Resp: [16-20] SpO2 SpO2: 96 % SpO2: [94 %-97 %] Patient Vitals for the past 168 hrs: Weight 03/02/18 0706 67.9 kg (149 lb 11.1 oz) 03/01/18 1245 68.7 kg (151 lb 7.3 oz) Intake/Output Summary (Last 24 hours) at 03/02/18 1139 Last data filed at 03/02/18 1123 Gross per 24 hour Intake 1239 ml Output 1625 ml Net -386 ml Physical Exam Constitutional: She is oriented to person, place, and time. She appears well- developed and well-nourished. No distress. HENT: Head: Normocephalic and atraumatic. Neck: Normal range of motion. Cardiovascular: Normal rate, regular rhythm, normal heart sounds and intact distal pulses. Exam reveals no gallop and no friction rub. No murmur heard. Pulmonary/Chest: Effort normal. No respiratory distress. She has wheezes (scattered expiratory ). She has rales (mild bibasilar). Abdominal: Soft. She exhibits no distension. Musculoskeletal: Normal range of motion. She exhibits no edema or tenderness. Neurological: She is alert and oriented to person, place, and time. Skin: Skin is warm. She is not diaphoretic. Psychiatric: She has a normal mood and affect. Nursing note and vitals reviewed. Lab Comments: Recent Labs 03/02/18 0356 03/01/18 1737 03/01/18 1416 WBC 13.0* 15.9* 15.2* HGB 13.7 14.6 14.1 HCT 40.6 44.1 41.4 PLATELET 238 261 254 Recent Labs 03/01/18 1416 INR 1.0 Recent Labs 03/02/18 0633 03/02/18 0356 03/01/18 1416 NA -- 141 141 K 3.5 Not Perf 4.0 CL -- 98 99 CO2 -- 25 27 BUN -- 23* 15 CREATININE -- 0.93 0.79 No results for input(s): AST, ALT, ALKPHOS, BILITOT, BILIDIR in the last 168 hours. Recent Labs 03/02/18 0356 03/01/18 1416 CALCIUM 8.7 9.1 Recent Labs 03/01/18200603/01/18 1416 CK 282* 219* TROPONINT 0.20* 0.19* Pertinent Radiographic/Diagnostic Results: I have independently visualized the following studies: ECG 03/02/2018: sinus rhythm, now with TWI in anterior leads CXR at OSH 02/28/18: 1. COPD, 2. Tiny left medial basilar lung opcity likely chronic atelectasis versus scar. A tiny infiltrate is not excluded. ?? Assessment: Thanh Johnson is a 67 y.o. female with no know hx of CAD, but with PMH significant for HTN, former smoker (1-2 PPD, quit 11 years ago), COPD- non O2 dependent, lupus, and with hx of seizure disorder who presents from [facility] for further evaluation and management of an NSTEMI. She will have an echo, and is NPO for left heart cath today. ?? Plan: NSTEMI Troponin I 1-->2 at [facility] Troponin T's 0.19, 0.20 Chest pain free at this time Heparin drip infusing Aspirin 325mg and Plavix 300 mg given at OSH on 02/28 at 1707 Continue aspirin, plavix, metoprolol, high dose statin PRN nitro for chest pain Initial EKG shows sinus petra, t wave flattening to I and TWI to aVL, now with TWI to anterior leads Check echo NPO today for [facility] Consent in chart Acute CHF, diastolic vs systolic Pro BNP 3796 IV lasix 40 mg today, monitor for response Check echo Continue beta della, ANTHONY-I Strict I+Os, daily weights, 2 gm sodium diet ?? HTN BP: (101-138)/(40-62) Continue metoprolol, lisinopril Hold home Maxzide dose ?? COPD Does not appear to be in acute exacerbation Hold on steroids Duo nebs q 6 PRN albuterol neb Budesonide neb daily (in place of home Pulmicort inhaler) ?? Hx of systemic lupus Continue plaquenil ?? Hx of seizure disorder Maintain safety precautions Continue gabapentin at home dose ?? Leukocytosis WBC trending down, now 13.0 Initially received prednisone at OSH No signs/symptoms consistent with infectious process Chest xray at OSH showed evidence of COPD ? CODE STATUS: FULL CODE Discussed with Dionte Chavez MD Amanda King, APRN Cardiovascular Medicine 03/02/2018 STAFF ADDENDUM Patient interviewed and examined. Medical record reviewed. I agree with the Intercurrent History Past Medical History Physical Exam Objective Data Assessment and Plan as detailed by A.King DE LA FUENTE, with whom the patient was interviewed, examined, and discussed, with the following additions and/or exceptions. No recurrent chest pain. Mild chest heaviness. Some orthopnea. + JVD. Lungs with diffuse expiratory wheezing. Left heart cath today demonstrated no flow limiting CAD. No measure of LVEDP. No LV gram. Will obtain an echocardiogram as she may have a Takasubo CM. Will continue with gentle diuresis as I suspect she remains in mild CHF. * Tyrone Franco RN - 03/01/2018 1:01 PM EDT Patient arrived from outside hospital, no complaints.Telemetry initiated plus call davila. Patient dorota heparin drip at 800 unit per hour. documented in this encounter H&P Notes * Dionte Chavez MD - 03/01/2018 4:43 PM EDT Cardiology Admission H&P Patient Name: Thanh Johnson Date of : 1950 Age: 67 y.o. Hospital Admit Date: 03/01/2018 Inpatient Attending: Dionte Chavez MD PCP: John Diaz MD Presenting Diagnosis/Chief Complaint: NSTEMI Active Problem List: Active Hospital Problems Diagnosis ??? NSTEMI (non-ST elevated myocardial infarction) Resolved Hospital Problems Diagnosis Date Resolved No resolved problems to display. History of Present Illness: HPI Comments: Ms. Thanh Johnson is a 67 year old female with no know hx of CAD, but with PMH significant for HTN, former smoker (1-2 PPD, quit 11 years ago), COPD- non O2 dependent, lupus, and with hx of seizure disorder who presents from [facility] for further evaluation and management of an NSTEMI. Shestates that two days ago she was out running errands, carrying a rug from a store to her car at which time she developed what she describes as a mid-left sided chest pressure similar in character to what she has felt in the past with anxiety, however more severe and rated as an 8/10. The chest pressure did not radiate but was associated with moderate dyspnea which led her to believe that she was experiencing a COPD exaverbation. She was able to locate and use her albuterol inhaler, and after about 10 minutes her chest pressure decreased to a 2/10 from a 8/10. She denies any recent fevers, chills, changes in weight, swelling to her abdomen or legs, palpitations, or lightheadedness/near syncope. Past Medical History: Past Medical History: Diagnosis Date ??? COPD (chronic obstructive pulmonary disease) ??? Former smoker, stopped smoking many years ago quit in 2006, previously 1-2 PPD use ??? HTN (hypertension) ??? SLE (systemic lupus erythematosus) Surgical History/Problems: Past Surgical History: Procedure Laterality Date ??? ANKLE FRACTURE SURGERY 2006 ??? CREATED BY INTERFACE open reduction, internal fixation-right ankle Procedure Date: 2006 Significant Family History: Family History Problem Relation Age of Onset ??? Chronic Obstructive Pulmonary Disease Mother ??? Diabetes Father Social History: Social History Social History ??? [...] Not on file Other Topics Concern ??? Not on file Social History Narrative Apr 2012: lives in [place], [place] ([facility]) partner: Apollo Dumont (d. 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) tobacco: D/C'd ~ 2005 p ~ 25 pack-yrs. 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 mows lawn, uses weedwhacker REVIEW OF SYSTEMS: Review of Systems Constitutional: Negative for activity change, appetite change, chills, fatigue, fever and unexpected weight change. Respiratory: Positive for shortness of breath (mild at baseline with exertion secondary to COPD). Negative for cough. Cardiovascular: Negative for chest pain, palpitations and leg swelling. Gastrointestinal: Negative for abdominal pain and nausea. Neurological: Negative for dizziness, weakness, light-headedness and headaches. All other systems reviewed and are negative. Medications: Prescriptions Prior to Admission Medication Sig Dispense Refill Last Dose ??? PROAIR HFA 90 mcg/actuation HFA Aerosol Inhaler Inhale 2 puffs into the lungs 2 times daily. Taking ??? PULMICORT FLEXHALER 180 mcg/actuation Aerosol Powdr Breath Activated daily as needed. Taking ??? lisinopril (PRINIVIL;ZESTRIL) 2.5 mg Tablet daily. Taking ??? gabapentin (NEURONTIN) 300 mg Capsule TAKE ONE CAPSULE BY MOUTH EVERY MORNING AND 2 CAPSULES ATBEDTIME 270 capsule 3 Taking ??? hydroxychloroquine (PLAQUENIL) 200 mg Tablet Take 1 tablet by mouth daily. 90 tablet 0 Taking ??? LORazepam (ATIVAN) 1 mg Tablet 1 tab at HS as needed for sleep. May take 1 tab during the day for anxiety if needed. 30 tablet 0 Taking ??? levothyroxine (SYNTHROID) 50 mcg Tablet Take 1 tablet by mouth daily. 90 tablet 3 Taking ??? COMBIVENT RESPIMAT 20-100 mcg/actuation Mist INHALE ONE PUFF BY MOUTH FOUR TIMES A DAY 4 Inhaler 11 Taking ??? citalopram (CELEXA) 20 mg Tablet TAKE ONE TABLET BY MOUTH EVERY DAY (Patient taking differently: TAKE 2 TABLET BY MOUTH EVERY DAY) 90 tablet 3 Taking at Unknown time ??? triamterene-hydrochlorothiazide (MAXZIDE-25) 37.5-25 mg Tablet TAKE ONE-HALF TABLET BY MOUTH DAILY 45 tablet 4 Taking ??? EPINEPHrine (EPIPEN) 0.3 mg/0.3 mL (1:1,000) injection Inject 0.3 mLs into the muscle daily as needed. 2 each 11 Taking Allergies: Allergies Allergen Reactions ??? Bee Pollen Hives PHYSICAL EXAM: Last set of vital signs: BP 114/48 (BP Location (NBP): Left arm, Patient Position: Lying) Pulse 55 Temp 36.7 ??C (98.1 ??F) (Oral) Resp 18 Ht 149.9 cm (4' 11) Wt 68.7 kg (151 lb 7.3 oz) SpO2 96% BMI 30.59 kg/m2 Physical Exam Constitutional: She is oriented to person, place, and time. She appears well- developed and well-nourished. No distress. HENT: Head: Normocephalic. Cardiovascular: Normal heart sounds and intact distal pulses. Bradycardia present. Pulmonary/Chest: Effort normal. No respiratory distress. She has wheezes (mild throughout, expiratory). She has no rales. Abdominal: Soft. Bowel sounds are normal. She exhibits no distension. There is no tenderness. Musculoskeletal: Normal range of motion. She exhibits no edema or tenderness. Neurological: She is alert and oriented to person, place, and time. Skin: Skin is warm and dry. She is not diaphoretic. Psychiatric: She has a normal mood and affect. Her behavior is normal. Nursing note and vitals reviewed. Diagnostics: I have independently visualized the following studies: ECG 03/01/2018:sinus bradycardia, no concerning ST segment changes CXR at OSH 02/28/18: 1. COPD, 2. Tiny left medial basilar lung opcity likely chronic atelectasis versus scar. A tiny infiltrate is not excluded. LABS: Recent Results (from the past 24 hour(s)) Basic Metabolic Panel (non-fasting) Result Value Ref Range Glucose Lvl 105 65 - 199 mg/dL BUN 15 8 - 18 mg/dL Creatinine 0.79 0.70 - 1.20 mg/dL Sodium 141 135 - 145 mmol/L Potassium 4.0 3.5 - 5.0 mmol/L Chloride 99 98 - 107 mmol/L CO2 27 22 - 31 mmol/L Anion Gap 15 5 - 15 mmol/L Calcium 9.1 8.5 - 10.5 mg/dL eGFR 76 >=60 mL/min/1.73 m?? eGFR 89 >=60 mL/min/1.73 m?? Cardiac Enzymes (LEB/CGP) Result Value Ref Range Troponin-T 0.19 (H) 0.00 - 0.00 ng/mL CK, Total 219 (H) 0 - 160 unit/L Prothrombin Time Result Value Ref Range PT 11.6 9.4 - 12.5 sec INR 1.0 APTT Result Value Ref Range PTT 84 (H) 25 - 37 sec pro-Brain Natriuretic Peptide Result Value Ref Range ProBNP 3796 (H) <=125 pg/mL Hemogram Result Value Ref Range WBC 15.2 (H) 4.0 - 9.5 x10(3)/mcL RBC 4.70 4.00 - 5.21 x10(6)/mcL Hemoglobin 14.1 11.7 - 15.5 gm/dL Hematocrit 41.4 35.7 - 45.8 % MCV 88.1 82.6 - 94.4 fL MCH 30.0 27.1 - 32.0 pg MCHC 34.1 31.7 - 35.0 gm/dL Platelets 254 145 - 357 x10(3)/mcL RDWSD 39.3 37.0 - 46.0 fL RDWCV 12.2 11.5 - 14.1 % MPV 11.3 7.6 - 12.9 fL nRBC % Auto 0.0 % nRBC Abs Auto 0.000 0.000 - 0.000 x10(3)/mcL Differential, Automated Result Value Ref Range Neutrophils % 80.4 % Neutr Abs (ANC) 12.27 (H) 1.70 - 6.10 x10(3)/mcL Lymphocytes % 10.6 % Lymphocytes Abs 1.6 0.9 - 3.2 x10(3)/mcL Monocytes % 8.1 % Monocyte Abs 1.2 (H) 0.3 - 0.9 x10(3)/mcL Eosinophils % 0.1 % Eosinophils Abs 0.0 0.0 - 0.4 x10(3)/mcL Basophils % 0.2 % Basophils Abs 0.0 0.0 - 0.1 x10(3)/mcL Immature Gran % 0.60 % Joanne Gran Abs 0.09 (H) 0.00 - 0.04 x10(3)/mcL LABS FROM OSH 02/28-03/01: WBC 11.9 Hgb 15.2 Hct 45.2 Plt 224 PT 10.1 INR 1.0 PTT 21.3 Na 140 K 3.8 Cl 102 CO2 31.0 BUN 12 Cr 1.03 Glucose 104 Ca 8.7 Mag 2.2 #1 #2 #3 Troponin-I 1.12 1.30 2.07 Chol 205 HDL 87 LDL 118 Trig 36 HgbA1c 5.8% ASSESSMENT: Ms. Thanh Johnson is a 67 year old female with no know hx of CAD, but with PMH significant for HTN, former smoker (1-2 PPD, quit 11 years ago), COPD- non O2 dependent, lupus, and with hx of seizure disorder who presents from [facility] for further evaluation and management of an NSTEMI. TREATMENT PLAN: NSTEMI Troponin I 1-->2 at [facility] Cycle troponin T's Chest pain free at this time Aspirin 325mg and Plavix 300 mg given at OSH on 02/28 at 1707 Continue aspirin, plavix, metoprolol, high dose statin PRN nitro for chest pain Initial EKG shows sinus petra, t wave flattening to I and TWI to aVL Check echo NPO at midnight for LHC, possibly tomorrow HTN BP: (114-120)/(48-57) Continue metoprolol, lisinopril Hold home Maxzide dose COPD Does not appear to be in acute exacerbation Hold on steroids Duo nebs q 6 PRN albuterol neb Budesonide neb daily (in place of home Pulmicort inhaler) Hx of systemic lupus Continue plaquenil Hx of seizure disorder Maintain safety precautions Continue gabapentin at home dose Leukocytosis WBC 15 today Initially received prednisone at OSH No signs/symptoms consistent with infectious process Chest xray at OSH showed evidence of COPD CODE STATUS: FULL CODE Discussed with Dionte Chavez MD Provider: Cydney Ziegler APRN Provider #: [id number] 03/01/2018 STAFF ADDENDUM Patient interviewed and examined. Medical record reviewed. I agree with the History of Present Illness Past Medical History Family History, Social History Review of Systems Physical Exam Objective Data Assessment and Plan as detailed by A.King DE LA FUENTE, with whom the patient was interviewed, examined, and discussed, with the following additions and/or exceptions. The patient presents with typical anginal pain and positiveTN/CPK. On exam she has basilar rales and a I/ holosystolic murmur. Her ECG is without significant Q waves or ST-TW changes. She has had a Type 1 NSTEMI. I agree with the treatment plan as outlinedbut would add that she would a) benefit from IV heparin; b) benefit from some diuresis given her exam and elevated BNP. Have recommended proceeding with coronary angiography and likely PCI. There is no contraindication to the use of a JUDITH. As a point of information there is an increased prevalence of CAD in patients with SLE. documented in this encounter Miscellaneous Notes * Plan of Care - Pepper Olivo RN - 03/03/2018 1:33 AM EDT Problem: Patient Care Overview Goal: Plan of Care Review Outcome: Ongoing (Interventions Implemented as Appropriate) 03/02/18 1855 03/02/181939 Coping/Psychosocial Plan Of Care Reviewed With -- patient;daughter;son Plan of Care Review Progress progress toward functional goals is gradual -- OUTCOME EVALUATION NOTE: OUTCOME SUMMARY: No pain. Cath sites WDL. Pt slept between care. Ambulates well. Son visited early in shift. Daughter rooming in. Pt appears anxious, asking questions about treatment plan. PLAN MOVING FORWARD: Pending ECHO results. INDIVIDUALIZED FALL PREVENTION INTERVENTIONS: Patient-specific fall risk factors per assessment: [current deficits]: None Assistance [level of assistance required for transfers and ambulation]: independent Supervision [direct monitoring required during toileting and ADLs]: independent Surveillance [continuous indirect monitoring]: telemetry CPG GOAL OUTCOME EVALUATION: Progressing Goal: Individualization & Mutuality Outcome: Ongoing (Interventions Implemented as Appropriate) 03/01/18 1245 Mutuality/Individual Preferences What Anxieties, Fears or Concerns Do You Have About Your Health or Care? none What Questions Do You Have About Your Health or Care? no What Information Would Help Us Give You More Personalized Care? na Goal: Fall Prevention-Safe Patient Handling Outcome: Ongoing (Interventions Implemented as Appropriate) 03/02/18 19403/02/18 2310 S[place]ent Fall Risk History of Falling 0 -- Secondary Diagnosis 15 -- Ambulatory Aids 0 -- Intravenous Therapy/Heparin/Saline Lock 20 -- Gait/Transferring 0 -- Mental Status 0 -- Score 35 -- OTHER Sargent Fall Risk Med -- Restraint Interventions Safety Promotion/Fall Prevention nonskid shoes/slippers when out of bed;safety round/check completed -- Positioning Body Position independent -- Activity Activity Type -- ambulated in garza Activity Assistance Provided -- assistance, stand-by Assistive Device Utilized -- none Goal: Infection Control Outcome: Ongoing (Interventions Implemented as Appropriate) 03/02/18 194 Safety Interventions Isolation Precautions standard precautions maintained Infection Prevention environmental surveillance performed;single patient room provided;visitors restricted/screened Coping Strategies Supportive Measures active listening utilized;counseling provided;decision- making supported;goal setting facilitated;positive reinforcement provided;problem solving facilitated;relaxation techniques promoted;self-care encouraged;self-reflection promoted;self-responsibility promoted;verbalization offeelings encouraged Goal: Discharge Needs Assessment Outcome: Ongoing (Interventions Implemented as Appropriate) 03/02/18 0235 Discharge Needs Assessment Concerns To Be Addressed no discharge needs identified Provider Choice List(s) Given no Equipment Needed After Discharge none Discharge Disposition still a patient Current Health Anticipated Changes Related to Illness none Activity/Self Care Review of Systems Equipment Currently Used at Home none Goal: Interdisciplinary Rounds/Family Conf Outcome: Ongoing (Interventions Implemented as Appropriate) 03/02/18 0235 Interdisciplinary Rounds/Family Conf Participants nursing;patient Problem: Cardiac Cath/Percutaneous Coronary Intervention (Adult) Goal: Signs and Symptoms of Listed Potential Problems Will be Absent, Minimized or Managed (CardiacCath/Percutaneous Coronary Intervention) Signs and symptoms of listed potential problems will be absent, minimized or managed by discharge/transition of care (reference Cardiac Cath/Percutaneous Coronary Intervention (Adult) CPG). Outcome: Ongoing (Interventions Implemented as Appropriate) 03/02/18 194 Cardiac Cath/Percutaneous Coronary Intervention Problems Assessed (Cardiac Catheterization) all Problems Present (Cardiac Catheterization) none * Plan of Care - Delmy Ferrari RN - 03/02/2018 7:07 PM EDT Problem: Patient Care Overview Goal: Plan of Care Review Outcome: Ongoing (Interventions Implemented as Appropriate) 03/02/18 3365 Coping/Psychosocial Plan Of Care Reviewed With patient;daughter;son Plan of Care Review Progress progress toward functional goals is gradual OUTCOME EVALUATION NOTE: OUTCOME SUMMARY: Pt A+O. No complaints of pain. SR SB on tele rates 50-85, rare pvcs, rare pacs. Ptreported having some shortness of breath episodes today- SUDHAKAR Ziegler notified- no new orders. Pt encouraged to notify us when these happen so we can help- pt verbalizes understanding. Pt had a cath today- team tried right radial site- CSM intact, bruised. Right fem site is CDI, CSM intact soft, pulses intact. Pt had an echo done today and family has been at bedside. SUDHAKAR Ziegler notified of soft bloodpressures this evening- pt asymptomatic, no new orders- continuing to monitor. Potassium replaced today. PLAN MOVING FORWARD: awaiting echo results, diuresing INDIVIDUALIZED FALL PREVENTION INTERVENTIONS: Patient-specific fall risk factors per assessment: [current deficits]: new environment Assistance [level of assistance required for transfers and ambulation]: SB Supervision [direct monitoring required during toileting and ADLs]: Int Surveillance [continuous indirect monitoring]: rounds, tele Patient-specific fall prevention interventions for sensory deficits provided, if applicable: low bed, call davila in reach, rings appropriately, non skid socks when out of bed CPG GOAL OUTCOME EVALUATION: Ongoing Problem: Cardiac Cath/Percutaneous Coronary Intervention (Adult) Goal: Signs and Symptoms of Listed Potential Problems Will be Absent, Minimized or Managed (CardiacCath/Percutaneous Coronary Intervention) Signs and symptoms of listed potential problems will be absent, minimized or managed by discharge/transition of care (reference Cardiac Cath/Percutaneous Coronary Intervention (Adult) CPG). Outcome: Ongoing (Interventions Implemented as Appropriate) 03/02/18 1855 Cardiac Cath/Percutaneous Coronary Intervention Problems Assessed (Cardiac Catheterization) all Problems Present (Cardiac Catheterization) none * Brief Op Note - Pepper Menendez MD - 03/02/2018 11:31 AM EDT Brief Operative Note Patient Name: Thanh Johnson : [id number] MR#: [id number] Case Date: 03/02/2018 Pediatric Geneticist: * Pepper Menendez MD - Primary * Felipe Felipe MD - Fellow-Interventional Preliminary Cardiac Catheterization Procedure Note: Procedure(s) performed: Coronary Angiography Baseline Frailty Assessment: 3 (MANAGING WELL) Definitions from [employer] Clinical Frailty Scale: A time-out was conducted prior to the start of the procedure to verify the correct patient and procedure, procedure location, and all relevant critical information. Access: Right femoral artery Preliminary findings: Femoral Angio: Insertion site in the mid common femoral artery Coronary Angiography: Anatomically normal right dominant circulation LMCA: Without angiographic apparent disease LAD: Without angiographic apparent disease LCx: Without angiographic apparent disease RCA: Without angiographic apparent disease LVEDP: ~20 mmHg Contrast: <30 ml Hemostasis: Right radial sheath was removed at case completion with hemostasis obtained with mechanical (TR Band) compression Right femoral arterial sheath was removed at case completion with hemostasis obtained by manual compression. The patient tolerated the procedure well and was transferred from the cardiac catheterization lab to the the in stable condition without apparent complications. Full report to follow. PEPPER MENENDEZ MD sludge filtration operator Pager [phone] * Plan of Care - Cydney Ziegler APRN - 03/02/2018 9:58 AM EDT Cardiac cath Pre Procedure Note The indications, expected benefits and potential risks of heart catheterization were reviewed in detail with the patient. The potential for , heart attack, stroke, kidney failure, hemorrhage, allergic reaction, vascular complications and infection were reviewed in detail. The possibility of stenting and other percutaneous intervention with associated risk was reviewed. The possible need for emergent coronary artery bypass surgery was reviewed. After a discussion about the above, and havinganswered all questions posed, the patient was provided with a consent which was reviewed and signed. ASA: 4: Patient with severe systemic disease that is a constant threat to life Mallampati: I: soft palate, fauces, tonsillar pillars and uvula can be seen Sedation Plan: moderate (conscious sedation) Assessment and Plan: Proceed with cardiac cath today, see progress note from today for further details. Cydney Ziegler APRN 03/02/2018 Pager [phone] * Plan of Care - Pepper Olivo RN - 03/02/2018 2:39 AM EDT Problem: Patient Care Overview Goal: Plan of Care Review Outcome: Ongoing (Interventions Implemented as Appropriate) 03/01/18200903/02/18 2413 Coping/Psychosocial Plan Of Care Reviewed With patient;son;daughter -- Plan of Care Review Progress -- progress toward functional goals as expected OUTCOME EVALUATION NOTE: OUTCOME SUMMARY: No pain. Heparin gtt continued. Sons visited early in the shift, daughter rooming in, participatingin care. No acute events, pt slept between care. PLAN MOVING FORWARD: Cardiac cath this AM. INDIVIDUALIZED FALL PREVENTION INTERVENTIONS: Patient-specific fall risk factors per assessment: [current deficits]: Heparin gtt Assistance [level of assistance required for transfers and ambulation]: Stand by Supervision [direct monitoring required during toileting and ADLs]: independent Surveillance [continuous indirect monitoring]: telemetry CPG GOAL OUTCOME EVALUATION: Progressing Goal: Individualization & Mutuality Outcome: Ongoing (Interventions Implemented as Appropriate) 03/01/18 1245 Mutuality/Individual Preferences What Anxieties, Fears or Concerns Do You Have About Your Health or Care? none What Questions Do You Have About Your Health or Care? no What Information Would Help Us Give You More Personalized Care? na Goal: Fall Prevention-Safe Patient Handling Outcome: Ongoing (Interventions Implemented as Appropriate) 03/01/182009 [place] Fall Risk History of Falling 0 Secondary Diagnosis 15 Ambulatory Aids 0 Intravenous Therapy/Heparin/Saline Lock 20 Gait/Transferring 0 Mental Status 0 Score 35 OTHER [place] Fall Risk Med Restraint Interventions Safety Promotion/Fall Prevention activity supervised;fall prevention program maintained;nonskid shoes/slippers when out of bed;safety round/check completed Positioning Body Position independent Activity Activity Type activity adjusted per tolerance Activity Assistance Provided assistance, stand-by Assistive Device Utilized none Goal: Infection Control Outcome: Ongoing (Interventions Implemented as Appropriate) 03/01/182009 Safety Interventions Isolation Precautions standard precautions maintained Infection Prevention environmental surveillance performed;rest/sleep promoted;single patient room provided Coping Strategies Supportive Measures active listening utilized;counseling provided;decision- making supported;goal setting facilitated;positive reinforcement provided;problem solving facilitated;relaxation techniques promoted;self-care encouraged;self-reflection promoted;self-responsibility promoted;verbalization offeelings encouraged Goal: Discharge Needs Assessment Outcome: Ongoing (Interventions Implemented as Appropriate) 03/02/18 0235 Discharge Needs Assessment Concerns To Be Addressed no discharge needs identified Provider Choice List(s) Given no Equipment Needed After Discharge none Discharge Disposition still a patient Current Health Anticipated Changes Related to Illness none Activity/Self Care Review of Systems Equipment Currently Used at Home none Goal: Interdisciplinary Rounds/Family Conf Outcome: Ongoing (Interventions Implemented as Appropriate) 03/02/18 0235 Interdisciplinary Rounds/Family Conf Participants nursing;patient * Plan of Care - Juliann Morrison RN - 03/01/2018 6:35 PM EDT Problem: Patient Care Overview Goal: Plan of Care Review Outcome: Ongoing (Interventions Implemented as Appropriate) 03/01/183 Coping/Psychosocial Plan Of Care Reviewed With patient;sibling Plan of Care Review Progress no change OUTCOME EVALUATION NOTE: OUTCOME SUMMARY: SR/SB, HR 50-60. No report of CP or SOB. Heparin gtt continued. Son by to see. PLAN MOVING FORWARD: Echo, aquatic life laborer, trend cardiac enzymes INDIVIDUALIZED FALL PREVENTION INTERVENTIONS: Patient-specific fall risk factors per assessment: [current deficits]: Tubes/cables, unfamiliar environment Assistance [level of assistance required for transfers and ambulation]: SBA Supervision [direct monitoring required during toileting and ADLs]: Ind Surveillance [continuous indirect monitoring]: Tele, hourly rounding Patient-specific fall prevention interventions for sensory deficits provided, if applicable: [X] Yes CPG GOAL OUTCOME EVALUATION: Ongoing documented in this encounter Plan of Treatment Upcoming Encounters Date Type Department Care Team (Late st Contact Info) Description 05/29/2024 2:00 PM EDT Office Visit Cardiology at [address] [phone] Estiven Raza MD [facility] [place] [address] Scheduled Referrals Name Type Priority Associated Diagnoses Order Schedule Referral to Pulmonology Outpatient Referral Routine Other emphysema Ordered: 03/03/2018 Referral to Cardiac Rehab Outpatient Referral Routine NSTEMI (non-ST elevated myocardial infarction) Ordered: 03/03/2018 documented as of this encounter Procedures Procedure Name Priority Date/Time Associated Diagnosis Comments SALES PROJECT COORDINATOR SCAN 03/04/2018 12:00 AM EDT EKG 12-LEAD Routine 03/03/2018 8:08 AM EDT Non-ST elevation myocardial infarction (NSTEMI) BMP W/FASTING GLUCOSE Routine 03/03/2018 5:05 AM EDT HEMOGRAM Routine 03/03/2018 5:05 AM EDT DIFFERENTIAL, AUTOMATED Routine 03/03/20 5:05 AM EDT CBC (WITH DIFF) Routine 03/03/2018 5:05 AM EDT ECHO COMPLETE Routine 03/02/2018 3:44 PM EDT Non-ST elevation myocardial infarction (NSTEMI) CARDIAC CATHETERIZATION Routine 03/02/20 18 12:00 PM EDT EKG 12-LEAD Routine 03/02/2018 7:45 AM EDT Non-ST elevation myocardial infarction (NSTEMI) HEPARIN (UNFRACTIONATED) LEVEL Timed 03/02/2018 6:33 AM EDT POTASSIUM Routine 03/02/2018 6:33 AM EDT BMP W/FASTING GLUCOSE Routine 03/02/2018 3:56 AM EDT HEMOGRAM Routine 03/02/2018 3:56 AM EDT DIFFERENTIAL, AUTOMATED Routine 03/02/20 18 3:56 AM EDT CBC (WITH DIFF) Routine 03/02/2018 3:56 AM EDT TSH Routine 03/02/2018 3:56 AM EDT HEPARIN (UNFRACTIONATED) LEVEL Timed 03/02/2018 12:24 AM EDT CARDIAC CATH SCAN 03/02/2018 12: 00 AM EDT CARDIAC ENZYMES ([facility]) STAT 03/01/2018 8:07 PM EDT HEPARIN (UNFRACTIONATED) LEVEL STAT 03/01/2018 5:37 PM EDT HEMOGRAM Routine 03/01/2018 5:37 PM EDT DIFFERENTIAL, AUTOMATED Routine 03/01/20 18 5:37 PM EDT CBC (WITH DIFF) Routine 03/01/2018 5:37 PM EDT HEMOGRAM STAT 03/01/2018 2:16 PM EDT DIFFERENTIAL, AUTOMATED STAT 03/01/20 18 2:16 PM EDT CARDIAC ENZYMES ([facility]) STAT 03/01/2018 2:16 PM EDT APTT STAT 03/01/2018 2:16 PM EDT PROTHROMBIN TIME STAT 03/01/2018 2:16 PM EDT CBC (WITH DIFF) STAT 03/01/2018 2:16 PM EDT PRO-BRAIN NATRIURETIC PEPTIDE STAT 03/01/2018 2:16 PM EDT BASIC METABOLIC PANEL STAT 03/01/2018 2:16 PM EDT EKG 12-LEAD Routine 03/01/2018 1:59 PM EDT Non-ST elevation myocardial infarction (NSTEMI) documented in this encounter Results * SCAN DOC: SALES PROJECT COORDINATOR (03/04/2018 12:00 AM EDT) Anatomical Region Laterality Modality Other Narrative 03/04/2018 12:00 AM EDT Ordered by an unspecified provider. Scanning Provider MEDIA MGR SCAN EXT O RDR/RSLT * EKG 12 Lead (03/03/2018 8:08 AM EDT) Ventricular rate 69 BPM MUSE SYSTEM Atrial Rate 69 BPM MUSE SYSTEM P-R Interval 128 ms MUSE SYSTEM QRS Duration 66 ms MUSE SYSTEM Q-T Interval 420 ms MUSE SYSTEM QTC Calculated (Bezet) 450 ms MUSE SYSTEM Calculated P [place] 80 degrees MUSE SYSTEM Calculated R [place] 66 degrees MUSE SYSTEM Calculated T [place] 87 degrees MUSE SYSTEM INTERPRETATION Normal sinus rhythm Nonspecific T wave abnormality Abnormal ECG When compared with ECG of 02-MAR-2018 07:45, Nonspecific T wave abnormality has replaced inverted T waves in Anterior leads Confirmed by MD Jovany, Francisco ([id number]) on 03/03/2018 8:11:21 PM MUSE SYSTEM 03/03/2018 8:08 AM EDT 03/03/2018 8:11 PM EDT Cydney Ziegler APRN ECG ORDERABLES MUSE SYSTEM * (ABNORMAL) Differential, Automated (03/03/2018 5:05 AM EDT) Neutrophil % 66.3 % [facility] Neutrophil Absolute 5.99 1.70 - 6.10 x10(3)/ L [facility] Lymph % 18.2 % [facility] Lymphocytes Abs 1.6 0.9 - 3.2 x10(3)/[facility] Monocyte % 11.5 % [facility] Monocyte Abs 1.0(H) 0.3 - 0.9 x10(3)/[facility] Eos % 3.0 % [facility] Eosinophils Abs 0.3 0.0 - 0.4 x10(3)/[facility] Basophil % 0.8 % [facility] Baso Absolute 0.1 0.0 - 0.1 x10(3)/ L [facility] Immature Gran % 0.20 % [facility] Comment: Immature granulocytes(IG's)percentage and absolute count will include metamyelocytes, myelocytes, and promyelocytes. Blood smears from CBCs yielding IG's will be scanned manually for concordance. If this scan disagrees with the automated IG or if promyelocytes are noted, a manual differential will be performed. Immature Gran Absolute 0.02 0.00 - 0.04 x10(3)/ L [facility] Blood specimen (specimen) 03/03/2018 5:05 AM EDT 03/03/2018 5:20 AM EDT Narrative Resulting Agency Comment Spec In Lab Cydney J Toney ENTERTAINMENT MANAGER HEMATOLOGY ORDERABLE S [facility] [place] [address] * Hemogram (03/03/2018 5:05 AM EDT) [facility] White Blood Cell 9.0 4.0 - 9.5 x10(3)/[facility] Red Blood Cell 4.53 4.00 - 5.21 x10(6)/[facility] Hemoglobin 13.6 11.7 - 15.5 gm/dL [facility] Hematocrit 40.6 35.7 - 45.8 % [facility] Mean Cell Volume 89.6 82.6 - 94.4 [facility] Mean Cell Hemoglobin 30.0 27.1 - 32.0 pg [facility] Mean Cell Hemoglobin Concentration 33.5 31.7 - 35.0 gm/dL [facility] Platelet 218 145 - 357 x10(3)/[facility] RDW Standard Deviation 41.4 37.0 - 46.0 [facility] RDW coefficient of variation 12.6 11.5 - 14.1 % [facility] Mean Platelet Volume 11.6 7.6 - 12.9 [facility] NRBC% auto 0.0 % [facility] NRBC Absolute 0.000 0.000 - 0.000 x10(3)/[facility] Blood specimen (specimen) 03/03/2018 5:05 AM EDT 03/03/2018 5:20 AM EDT Narrative Resulting Agency Comment Spec In Lab Cydney Ziegler SUDHAKAR HEMATOLOGY ORDERABLE S [facility] [place] [address] * (ABNORMAL) BMP w/fasting Glucose (03/03/2018 5:05 AM EDT) Glucose Fasting 103(H) 65 - 99 mg/dL [facility] Comment: ?Fasting* Glucose Interpretive Criteria Normal ?65-99 mg/dL Impaired Fasting glucose ?100-125 mg/dL Consistent with Diabetes Mellitus ? >or= 126 mg/dL *Fasting is defined as no caloric intake for at least 8 hours In the absence of unequivocal hyperglycemia a plasma glucose value of >or= 126 mg/dL should be repeated on a subsequent day. Diagnosis and Classification of Diabetes Mellitus, Position Statement from the [place] [employer]. ??Diabetes Care, Volume 33, Supplement 1, Aug 2009 Blood Urea Nitrogen 16 8 - 18 mg/dL [facility] Creatinine 0.96 0.70 - 1.20 mg/dL [facility] Sodium 140 135 - 145 mmol/L [facility] Potassium 4.3 3.5 - 5.0 mmol/L [facility] Comment: Please note: ??Patients with WBC >100,000 may have falsely elevated Potassium levels. ??For accurate Potassium quantification in these patients send serum separator tube (gold top) for subsequent determinations. ??Contact the Clinical Chemistry Laboratory if there are any questions. Chloride 100 98 - 107 mmol/L [facility] Carbon Dioxide 27 22 - 31 mmol/L [facility] Anion Gap 13 5 - 15 mmol/L [facility] Calcium 8.7 8.5 - 10.5 mg/dL [facility] Est Glomerular Filtration Rate 60 >=60 mL/min/1. 73 m?? [facility] Comment: The eGFR was calculated using the CKD-EPI equation. As with all creatinine based estimates of kidney function, eGFR values calculated with the CKD-EPI equation are not accurate in patients with acute kidney failure, extremes of body mass or the acutely ill. http://[employer]/DHnkdep http://[employer]/DHMCnkf eGFR 70 >=60 mL/min/1. 73 m?? [facility] Comment: The eGFR was calculated using the CKD-EPI equation. As with all creatinine based estimates of kidney function, eGFR values calculated with the CKD-EPI equation are not accurate in patients with acute kidney failure, extremes of body mass or the acutely ill. http://[employer]/DHnkdep http://[employer]/DHMCnkf Blood specimen (specimen) 03/03/2018 5:05 AM EDT 03/03/2018 5:20 AM EDT Narrative Resulting Agency Comment Spec In Lab Cydney Ziegler APRN CHEMISTRY ORDERABLES Performing Organization Address City/State/[facility] Co de Phone Number [facility] [place] [address] * ECHO COMPLETE (03/02/2018 3:44 PM EDT) Anatomical Region Laterality Modality Other 03/02/2018 Narrative 03/02/2018 9:08 PM EDT Procedure: ?Transthoracic Echocardiogram Patient: ?JOHNSON THANH B ? (Age): 1950(67y) Med Rec#: ? [id number] ?Sex: ?F ? Site Loc: ? [facility] ?Ht / Wt: ??150(cm)/68(kg) Pt. Loc: ?Adult Floor ? BSA: ?1.63 Study Date: ?? 03/02/2018 ?Pt. Type: Outpatient Tape: ? Referring: PAYTON Reading: Saul Leon ([id number]) Head Of Conservation: Naeem Acosta [facility] Diagnosis: *Non-ST elevation (NSTEMI) myocardial infarction (I21.4) Indication: ?? NSTEMI Rhythm: ? Sinus BP: ? 134/58 SUMMARY: 1. Basal septal hypertrophy is observed. ??There is normal global left ventricular systolic function. ??The quantitative left ventricular ejection fraction by biplane Medina's method is 73%. ??There are no left ventricular segmental wall motion abnormalities. 2. Right ventricular chamber size, wall thickness, and systolic function are within normal limits. 3. There is no hemodynamically significant valve disease. 4. See remainder of report for additional findings. Findings ? : Left Ventricle: ? The left ventricular chamber size is normal. ?Left ventricular wall thickness is normal. ?Basal septal hypertrophy is observed. ?There is no evidence of LVOT obstruction. ?The peak left ventricular outflow tract gradient with Valsalva is 17 mmHg. ?No ventricular septal defect is visualized. ?There is normal global left ventricular systolic function. ?The quantitative left ventricular ejection fraction by biplane Medina's method is 73%. ?There are no left ventricular segmental wall motion abnormalities. ?Doppler assessment is consistent with normal left sided filling pressure. Left Atrium: ? The left atrium is normal in size. 22 ml/m2. ?No atrial septal defect is visualized. Right Ventricle: ? Right ventricular chamber size, wall thickness, and systolic function are within normal limits. ?The estimated pulmonary artery systolic pressure is 27 mmHg. ?The estimated right atrial pressure is 3 mmHg. Right Atrium: ? The right atrium appears normal. Aortic Valve: ? The aortic valve is not well visualized. ?There is no evidence of aortic valve stenosis. ?There is no evidence of aortic regurgitation. Mitral Valve: ? The mitral valve appears normal in structure and function. ?There is no evidence of mitral valve leaflet prolapse. ?There is trace mitral regurgitation present. Tricuspid Valve: ? The tricuspid valve appears normal in structure and function. ?There is trace tricuspid regurgitation present. Pulmonic Valve: ? The pulmonic valve appears normal in structure and function. Pericardium: ? The pericardium appears normal and there is no evidence of a pericardial effusion. Aorta: ? The aortic root is normal in size. ?The ascending aorta was not well visualized. ?There is no evidence of coarctation of the aorta. Pulmonary Artery: ? The main pulmonary artery appears normal. Venous: ? The inferior vena cava appears normal in size. ?There is a greater than 50% respiratory change in the inferior vena cava dimension. Misc: ? There is no hemodynamically significant valve disease. ?See remainder of report for additional findings. ?Two-dimensional echo, spectral Doppler and color Doppler performed. Chambers 2D ?Value ?Units (Range) ? IVSd (2D) ? 0.9 ?cm ? LVPWd (2D) ?1 ?cm ? IVS:LVPW ratio (2D) 0.9 ?ratio ? RWT (2D) ?0.4 ?ratio ? RWT PW (2D) ? 0.5 ?ratio ? LVIDd (2D) ?4.5 ?cm ? LVIDs (2D) ?3.1 ?cm ? LVIDd (2D) index ?2.7 ?cm/m2 ? LVIDs (2D) index ?1.9 ?cm/m2 ? LV FS (2D) ?31 ? % ? EF Teichholz (2D) ?? 59 ? % ? Ao root diameter (2D3.6 ?cm (2.1 - 3.6) ? Volumes/Mass ?Value ?Units (Range) ? LA Area 4 CH ?14 ? cm2 (<21) ? LA ESV BP (A/L) inde21.7 ? ml/m2 ? RA AREA 4CH ? 11 ? cm2 ? LA ESV BP (MOD) inde22 ? ml/m2 ? LV ESV SP 4CH (MOD) 17.6 ? ml ? LV ESV SP 2CH (MOD) 19.5 ? ml ? LV EDV BP ? 70.2 ? ml ? LV ESV BP ? 18.7 ? ml ? LV EDV BP index ? 43.1 ? ml/m2 ? LV ESV BP index ? 11.5 ? ml/m2 ? BP EF (MOD) ? 73 ? % ? LV mass (2D) ?145.9 ?g ? LV mass (2D) index ??89.5 ? g/m2 ? Diastolic/Systolic Function ?Value ?Units (Range) ? MV E-wave Vmax ?1.1 ?m/sec ? MV deceleration wibw542.9 ?msec ? MV A-wave Vmax ?1.1 ?m/sec ? MV E:A ratio ?1 ?ratio ? LV septal e' Vmax ?? 0.1 ?m/sec ? LV lateral e' Vmax ??0.1 ?m/sec ? LV average e' Vmax ??0.1 ?m/sec ? LV E:e' septal ratio13.9 ? ratio ? LV E:e' lateral rati15.9 ? ratio ? LV average E:e' rati13.9 ? ratio ? Aortic Valve ?Value ?Units (Range) ? AV Vmax ? 2 ?m/sec ? AV peak gradient ?15.3 ? mmHg ? LVOT Vmax ? 1.2 ?m/sec ? LVOT peak gradient (17 ? mmHg ? DOI (Vmax) ?0.6 ?ratio ? Tricuspid Valve ?Value ?Units (Range) ? TR Vmax ? 2.5 ?m/sec ? TR peak gradient ?24.2 ? mmHg ? RAP ? 3 ?mmHg ? RVSP ?27 ? mmHg ? Wall Motion: Segment Name ?Rest ? Base-Anteroseptal ?? Normal ? Base-Anterior ? Normal ? Base-Anterolateral ??Normal ? Base-Posterolateral Normal ? Base-Inferior ? Normal ? Base-Inferoseptal ?? Normal ? Mid-Anteroseptal ?Normal ? Mid-Anterior ?Normal ? Mid-Anterolateral ?? Normal ? Mid-Posterolateral ??Normal ? Mid-Inferior ?Normal ? Mid-Inferoseptal ?Normal ? [place]-Septal ? Normal ? [place]-Anterior ? Normal ? [place]-Lateral ?Normal ? [place]-Inferior ? Normal ? [place]-Tip ?Normal ? This report has been electronically signed by: Saul Leon M.D. ? 03/02/2018 21:08:36 Images reviewed and interpretation verified [facility] Cardiac Ultrasound Laboratory Procedure Note Saul Leon MD - 03/02/2018 Procedure: Transthoracic Echocardiogram Patient: ALEX Trevino DOB(Age): 1950(67y) Med Rec#: [id number] Sex: F Site Loc: [facility] Ht / Wt: 150(cm)/68(kg) Pt. Loc: Adult Floor BSA: 1.63 Study Date: 03/02/2018 Pt. Type: Outpatient Tape: Referring: [email or web address] Reading: Saul Leon ([id number]) Head Of Conservation: Naeem Acosta [facility] Diagnosis: *Non-ST elevation (NSTEMI) myocardial infarction (I21.4) Indication: NSTEMI Rhythm: Sinus BP: 134/58 SUMMARY: 1. Basal septal hypertrophy is observed. There [...] See remainder of report for additional findings. Findings : Left Ventricle: The left ventricular chamber size is normal. Left ventricular wall thickness is normal. Basal septal hypertrophy is observed. There is no evidence of LVOT obstruction. The peak left ventricular outflow tract gradient with Valsalva is 17 mmHg. No ventricular septal defect is visualized. There is normal global left ventricular systolic function. The quantitative left ventricular ejection fraction by biplane Medina's method is 73%. There are no left ventricular segmental wall motion abnormalities. Doppler assessment is consistent with normal left sided filling pressure. Left Atrium: The left atrium is normal in size. 22 ml/m2. No atrial septal defect is visualized. Right Ventricle: Right ventricular chamber size, wall thickness, and systolic function are within normal limits. The estimated pulmonary artery systolic pressure is 27 mmHg. The estimated right atrial pressure is 3 mmHg. Right Atrium: The right atrium appears normal. Aortic Valve: The aortic valve is not well visualized. There is no evidence of aortic valve stenosis. There is no evidence of aortic regurgitation. Mitral Valve: The mitral valve appears normal in structure and function. There is no evidence of mitral valve leaflet prolapse. There is trace mitral regurgitation present. Tricuspid Valve: The tricuspid valve appears normal in structure and function. There is trace tricuspid regurgitation present. Pulmonic Valve: The pulmonic valve appears normal in structure and function. Pericardium: The pericardium appears normal and there is no evidence of a pericardial effusion. Aorta: The aortic root is normal in size. The ascending aorta was not well visualized. There is no evidence of coarctation of the aorta. Pulmonary Artery: The main pulmonary artery appears normal. Venous: The inferior vena cava appears normal in size. There is a greater than 50% respiratory change in the inferior vena cava dimension. Misc: There is no hemodynamically significant valve disease. See remainder of report for additional findings. Two-dimensional echo, spectral Doppler and color Doppler performed. Chambers 2D Value Units (Range) IVSd (2D) 0.9 cm LVPWd (2D) 1 cm IVS:LVPW ratio (2D) 0.9 ratio RWT (2D) 0.4 ratio RWT PW (2D) 0.5 ratio LVIDd (2D) 4.5 cm LVIDs (2D) 3.1 cm LVIDd (2D) index 2.7 cm/m2 LVIDs (2D) index 1.9 cm/m2 LV FS (2D) 31 % EF Teichholz (2D) 59 % Ao root diameter (2D3.6 cm (2.1 - 3.6) Volumes/Mass Value Units (Range) LA Area 4 CH 14 cm2 (<21) LA ESV BP (A/L) inde21.7 ml/m2 RA AREA 4CH 11 cm2 LA ESV BP (MOD) inde22 ml/m2 LV ESV SP 4CH (MOD) 17.6 ml LV ESV SP 2CH (MOD) 19.5 ml LV EDV BP 70.2 ml LV ESV BP 18.7 ml LV EDV BP index 43.1 ml/m2 LV ESV BP index 11.5 ml/m2 BP EF (MOD) 73 % LV mass (2D) 145.9 g LV mass (2D) index 89.5 g/m2 Diastolic/Systolic Function Value Units (Range) MV E-wave Vmax 1.1 m/sec MV deceleration bsib413.9 msec MV A-wave Vmax 1.1 m/sec MV E:A ratio 1 ratio LV septal e' Vmax 0.1 m/sec LV lateral e' Vmax 0.1 m/sec LV average e' Vmax 0.1 m/sec LV E:e' septal ratio13.9 ratio LV E:e' lateral rati15.9 ratio LV average E:e' rati13.9 ratio Aortic Valve Value Units (Range) AV Vmax 2 m/sec AV peak gradient 15.3 mmHg LVOT Vmax 1.2 m/sec LVOT peak gradient (17 mmHg DOI (Vmax) 0.6 ratio Tricuspid Valve Value Units (Range) TR Vmax 2.5 m/sec TR peak gradient 24.2 mmHg RAP 3 mmHg RVSP 27 mmHg Wall Motion: Segment Name Rest Base-Anteroseptal Normal Base-Anterior Normal Base-Anterolateral Normal Base-Posterolateral Normal Base-Inferior Normal Base-Inferoseptal Normal Mid-Anteroseptal Normal Mid-Anterior Normal Mid-Anterolateral Normal Mid-Posterolateral Normal Mid-Inferior Normal Mid-Inferoseptal Normal [place]-Septal Normal [place]-Anterior Normal [place]-Lateral Normal [place]-Inferior Normal [place]-Tip Normal This report has been electronically signed by: Saul Leon M.D. 03/02/2018 21:08:36 Images reviewed and interpretation verified [facility] Cardiac Ultrasound Laboratory Cydney Ziegler APRN ECHO ORDERABLES * CARDIAC CATHETERIZATION (03/02/2018 12:00 PM EDT) Anatomical Region Laterality Modality Other Narrative 03/04/2018 7:44 AM EDT ?[facility] ? Cardiac Catheterization/Intervention Report ? Patient Name: Johnson, Thanh B. ? Procedure Date: 03/02/2018 ? A #: [id number] ? Primary Physician: Pepper Menendez V ? Case #: [id number] ? File Name: [id number] ? Catheterization Order Number: [id number] ? [facility] ? Final Report [place], [place] ? Patient Name: ? Thanh B. Johnson ? ID#: ?[id number] ? : ?1943 ? Procedure Date: ? March 02, 2018 ?Case #: ? [id number] ? Room: ? 5 ? Case Physician: ? Pepper Menendez M.D. ? Start: ?11:05 ?Fellow: ? Felpie Felipe M.D. ?Admission: ??03/01/2018 ? Referring ? John Diaz M.D. ? Physicians: ?Prosper Dale M.D. ? Procedures: ?* Coronary Angiography ?* Left Heart Catheterization ?* Access Site Angiography ? History ?Thanh Johnson is a 74 year old woman. She has hypertension. The ?patient has a history of smoking. She has unstable angina and positive ?troponin. The patient is also status post a recent non-ST elevation ?myocardial infarction. Prior to the initiation of this procedure, the ?patient was designated as ASA Class III. ? Patient Status at Catheterization: ?The patient presented with: non-STEMI (w/i 7 days). [place] ?Cardiovascular Society angina class was IV. No stress or imaging studies ?were performed prior to this procedure. The status of the diagnostic ?procedure was Urgent. ? Technique: ?A 6Fr sheath was inserted in the right femoral artery utilizing the ?Seldinger technique. The left coronary artery was injected utilizing a ?5Fr JL 4 catheter. A 5Fr JR 4 catheter was used to inject the right ?coronary artery. Left ventricle was performed with a 5Fr JR 4 catheter. A ?total of 100cc of Omnipaque were opened, 25cc of Omnipaque were ?administered and 75cc of Omnipaque were wasted. Radiation: Fluoro time ?was 1.9 minutes, dose area product was 28,275 mGYcm2 and air kerma was ?555 mGY. ?The patient received the following medications prior to and during the ?procedure: Aspirin (any), Clopidogrel and Unfractionated Heparin (any). ? Hemodynamics: ?Left Heart Pressures ? Resting: ? Syst Diast ? EDP ?a ?v ? m ?Ao 152 ?? 69 ?101 ?LV 159 ? 23 ? Coronary Angiography: ?Dominance: Right ?Left Main ? The left main was normal, free of disease. ?Left Anterior Descending ? The left anterior descending (LAD) was normal, free of disease. ?Left Circumflex ? The left circumflex (LCX) was normal, free of disease. ?Right Coronary Artery ? The right coronary artery (RCA) was normal, free of disease. ? Vascular Access: ?Vascular Access Angiogram: ? A selective angiogram at the right femoral artery revealed no ? significant obstructive disease. A closure device is contraindicated ? due to a small caliber vessel. ?Vascular Access Management: ? Manual Compression of the right femoral artery access site was ? performed. ? Conclusions: ?* Normal coronary arteries ?* Elevated left ventricular end diastolic pressure ? Complications/Events: ?The patient had no complications during these procedures. ?The attending physician was present for the entire procedure. ?Dr. Pepper Menendez M.D. was present during the moderate sedation ?intraservice time as documented by the sedation nurse. ??Case time = 00:15. ?Dr. Pepper Menendez M.D. performed the coronary angiography, left heart ?catheterization and access site angiography. ? Pepper Menendez M.D. ? Electronically Signed by: Pepper Menendez M.D. ? Report Finalized: 03/02/2018 ??11:41 ? Report Last Ammended: 04/01/2018 ??09:42 ? Procedure Note Pepper Menendez MD - 04/01/2018 [facility] Cardiac Catheterization/Intervention Report Patient Name: Thanh Johnson Procedure Date: 03/02/2018 A #: [id number] Primary Physician: Pepper Menendez V Case #: File Name: [id number] Catheterization Order Number: [id number] [facility] FinalReport [place], [place] Patient Name: Thanh Johnson ID#:[id number] :1943 Procedure Date: March 02, 2018 Case #: Room: 5 Case Physician: Pepper Menendez M.D. Start: 11:05 Fellow: Felipe Felipe M.D. Admission:03/01/2018 Referring John Diaz M.D. Physicians: Prosper Dale M.D. Procedures: * Coronary Angiography * Left Heart Catheterization * Access Site Angiography History Thanh Johnson is a 74 year old woman. She has hypertension. The patient has a history of smoking. She has unstable angina andpositive troponin. The patient is also status post a recent non-ST elevation myocardial infarction. Prior to the initiation of this procedure,the patient was designated as ASA Class III. Patient Status at Catheterization: The patient presented with: non-STEMI (w/i 7 days). [place] [employer] angina class was IV. No stress or imagingstudies were performed prior to this procedure. The status of the diagnostic procedure was Urgent. Technique: A 6Fr sheath was inserted in the right femoral artery utilizing the Seldinger technique. The left coronary artery was injected utilizinga 5Fr JL 4 catheter. A 5Fr JR 4 catheter was used to inject the right coronary artery. Left ventricle was performed with a 5Fr JR 4catheter. A total of 100cc of Omnipaque were opened, 25cc of Omnipaque were administered and 75cc of Omnipaque were wasted. Radiation: Fluorotime was 1.9 minutes, dose area product was 28,275 mGYcm2 and air kermawas 555 mGY. The patient received the following medications prior to and duringthe procedure: Aspirin (any), Clopidogrel and Unfractionated Heparin(any). Hemodynamics: Left Heart Pressures Resting: Syst Diast EDP a v m Ao 152 69 101 LV 159 23 Coronary Angiography: Dominance: Right Left Main The left main was normal, free of disease. Left Anterior Descending The left anterior descending (LAD) was normal, free of disease. Left Circumflex The left circumflex (LCX) was normal, free of disease. Right Coronary Artery The right coronary artery (RCA) was normal, free of disease. Vascular Access: Vascular Access Angiogram: A selective angiogram at the right femoral artery revealed no significant obstructive disease. A closure device iscontraindicated due to a small caliber vessel. Vascular Access Management: Manual Compression of the right femoral artery access site was performed. Conclusions: * Normal coronary arteries * Elevated left ventricular end diastolic pressure Complications/Events: The patient had no complications during these procedures. The attending physician was present for the entire procedure. Dr. Pepper Menendez M.D. was present during the moderate sedation intraservice time as documented by the sedation nurse. Case time =00:15. Dr. Pepper Menendez M.D. performed the coronary angiography, leftheart catheterization and access site angiography. Pepper Menendez M.D. Electronically Signed by: Pepper Menendez M.D. Report Finalized: 03/02/2018 11:41 Report Last Ammended: 04/01/2018 09:42 Cydney Ziegler APRN CARDIAC CATH ORDERAB LES * EKG 12 Lead (03/02/2018 7:45 AM EDT) Ventricular rate 68 BPM MUSE SYSTEM Atrial Rate 68 BPM MUSE SYSTEM P-R Interval 124 ms MUSE SYSTEM QRS Duration 72 ms MUSE SYSTEM Q-T Interval 462 ms MUSE SYSTEM QTC Calculated (Bezet) 491 ms MUSE SYSTEM Calculated P [place] 73 degrees MUSE SYSTEM Calculated R [place] 66 degrees MUSE SYSTEM Calculated T [place] 102 degrees MUSE SYSTEM INTERPRETATION Normal sinus rhythm T wave abnormality, consider anterior ischemia Prolonged QT Abnormal ECG When compared with ECG of 01-MAR-2018 13:59, T wave inversion now evident in Anterior leads Confirmed by MD Leon Timothy ([id number]) on 03/02/2018 2:09:03 PM MUSE SYSTEM 03/02/2018 7:45 AM EDT 03/02/2018 2:09 PM EDT Cydney Ziegler APRN ECG ORDERABLES MUSE SYSTEM * Potassium (03/02/2018 6:33 AM EDT) Potassium 3.5 3.5 - 5.0 mmol/L [facility] Comment: Please note: ??Patients with WBC >100,000 may have falsely elevated Potassium levels. ??For accurate Potassium quantification in these patients send serum separator tube (gold top) for subsequent determinations. ??Contact the Clinical Chemistry Laboratory if there are any questions. Blood specimen (specimen) 03/02/2018 6:33 AM EDT 03/02/2018 6:38 AM EDT Narrative Resulting Agency Comment Spec In Lab Dionte Chavez MD CHEMISTRY ORDERABLES Performing Organization Address [facility] de Phone Number [facility] [place] [address] * Heparin (unfractionated) Level (03/02/2018 6:33 AM EDT) [facility] UF Heparin 0.58 IU/mL [facility] Comment: Guidelines for therapeutic unfractionated heparin levels are summarized below. Heparin (Anti-Xa) levels should be determined in a plasma sample that has been drawn 6 hours after a dose change i.e., steady-state has been reached. DRUG ?Dosing Schedule ? Target Peak Steady-State ?Heparin (Anti-Xa) Levels (Units/mL) Unfractionated ?Continuous infusion ?0.3-0.7 Heparin ?0.3-0.6 for some neurology indications Blood specimen (specimen) 03/02/2018 6:33 AM EDT 03/02/2018 6:38 AM EDT Narrative Resulting Agency Comment Spec In Lab Dionte Chavez MD HEMATOLOGY ORDERABLE S Performing Organization Address [facility] Co de Phone Number [facility] [place] [address] * (ABNORMAL) Differential, Automated (03/02/2018 3:56 AM EDT) [facility] Neutrophil % 66.8 % [facility] Neutrophil Absolute 8.73(H) 1.70 - 6.10 x10(3)/[facility] Lymph % 21.5 % [facility] Lymphocytes Abs 2.8 0.9 - 3.2 x10(3)/[facility] Monocyte % 9.7 % [facility] Monocyte Abs 1.3(H) 0.3 - 0.9 x10(3)/[facility] Eos % 0.8 % [facility] Eosinophils Abs 0.1 0.0 - 0.4 x10(3)/[facility] Basophil % 0.7 % [facility] Baso Absolute 0.1 0.0 - 0.1 x10(3)/[facility] Immature Gran % 0.50 % [facility] Comment: Immature granulocytes(IG's)percentage and absolute count will include metamyelocytes, myelocytes, and promyelocytes. Blood smears from CBCs yielding IG's will be scanned manually for concordance. If this scan disagrees with the automated IG or if promyelocytes are noted, a manual differential will be performed. Immature Gran Absolute 0.06(H) 0.00 - 0.04 x10(3)/[facility] Blood specimen (specimen) 03/02/2018 3:56 AM EDT 03/02/2018 4:34 AM EDT Narrative Resulting Agency Comment Spec In Lab Cydney Ziegler APRN HEMATOLOGY ORDERABLE S [facility] [place] [address] * (ABNORMAL) Hemogram (03/02/2018 3:56 AM EDT) White Blood Cell 13.0(H) 4.0 - 9.5 x10(3)/[facility] Red Blood Cell 4.59 4.00 - 5.21 x10(6)/[facility] Hemoglobin 13.7 11.7 - 15.5 gm/dL [facility] Hematocrit 40.6 35.7 - 45.8 % [facility] Mean Cell Volume 88.5 82.6 - 94.4 [facility] Mean Cell Hemoglobin 29.8 27.1 - 32.0 pg [facility] Mean Cell Hemoglobin Concentration 33.7 31.7 - 35.0 gm/dL [facility] Platelet 238 145 - 357 x10(3)/mc L [facility] RDW Standard Deviation 39.8 37.0 - 46.0 [facility] RDW coefficient of variation 12.4 11.5 - 14.1 % [facility] Mean Platelet Volume 11.4 7.6 - 12.9 [facility] NRBC% auto 0.0 % [facility] NRBC Absolute 0.000 0.000 - 0.000 x10(3)/mc L [facility] Blood specimen (specimen) 03/02/2018 3:56 AM EDT 03/02/2018 4:34 AM EDT Narrative Resulting Agency Comment Spec In Lab Cydney Ziegler APRN HEMATOLOGY ORDERABLE S [facility] [place] [address] * (ABNORMAL) BMP w/fasting Glucose (03/02/2018 3:56 AM EDT) Glucose Fasting 100(H) 65 - 99 mg/dL [facility] Comment: ?Fasting* Glucose Interpretive Criteria Normal ?65-99 mg/dL Impaired Fasting glucose ?100-125 mg/dL Consistent with Diabetes Mellitus ? >or= 126 mg/dL *Fasting is defined as no caloric intake for at least 8 hours In the absence of unequivocal hyperglycemia a plasma glucose value of >or= 126 mg/dL should be repeated on a subsequent day. Diagnosis and Classification of Diabetes Mellitus, Position Statement from the [place] [employer]. ??Diabetes Care, Volume 33, Supplement 1, Aug 2009 Blood Urea Nitrogen 23(H) 8 - 18 mg/dL [facility] Creatinine 0.93 0.70 - 1.20 mg/dL [facility] Sodium 141 135 - 145 mmol/L [facility] Potassium Not Perf 3.5 - 5.0 [facility] Comment: Unable to quantitate due to sample hemolysis. ??Sample redraw suggested. Called by: royer, Read back by: lizbeth, Date/Time:03/02/18 05:37. Please note: ??Patients with WBC >100,000 may have falsely elevated Potassium levels. ??For accurate Potassium quantification in these patients send serum separator tube (gold top) for subsequent determinations. ??Contact the Clinical Chemistry Laboratory if there are any questions. Chloride 98 98 - 107 mmol/L [facility] Carbon Dioxide 25 22 - 31 mmol/L [facility] Anion Gap 18(H) 5 - 15 mmol/L [facility] Calcium 8.7 8.5 - 10.5 mg/dL [facility] Est Glomerular Filtration Rate 63 >=60 mL/min/1. 73 m?? [facility] Comment: The eGFR was calculated using the CKD-EPI equation. As with all creatinine based estimates of kidney function, eGFR values calculated with the CKD-EPI equation are not accurate in patients with acute kidney failure, extremes of body mass or the acutely ill. http://[employer]/DHnkdep http://[employer]/DHMCnkf eGFR 73 >=60 mL/min/1. 73 m?? [facility] Comment: The eGFR was calculated using the CKD-EPI equation. As with all creatinine based estimates of kidney function, eGFR values calculated with the CKD-EPI equation are not accurate in patients with acute kidney failure, extremes of body mass or the acutely ill. http://[employer]/DHnkdep http://[employer]/DHMCnkf Blood specimen (specimen) 03/02/2018 3:56 AM EDT 03/02/2018 4:34 AM EDT Narrative Resulting Agency Comment Spec In Lab Cydney Ziegler ENTERTAINMENT MANAGER CHEMISTRY ORDERABLES Performing Organization Address [facility] Co de Phone Number [facility] [place] [address] * (ABNORMAL) TSH (03/02/2018 3:56 AM EDT) Thyroid Stimulating Hormone 4.73(H) 0.27 - 4.20 mlU/ML [facility] Blood specimen (specimen) 03/02/2018 3:56 AM EDT 03/02/2018 4:34 AM EDT Narrative Resulting Agency Comment Spec In Lab Cydney Ziegler ENTERTAINMENT MANAGER CHEMISTRY ORDERABLES Performing Organization Address [facility] Co de Phone Number [facility] [place] [address] * Heparin (unfractionated) Level (03/02/2018 12:24 AM EDT) UF Heparin 0.67 IU/mL [facility] Comment: Guidelines for therapeutic unfractionated heparin levels are summarized below. Heparin (Anti-Xa) levels should be determined in a plasma sample that has been drawn 6 hours after a dose change i.e., steady-state has been reached. DRUG ?Dosing Schedule ? Target Peak Steady-State ?Heparin (Anti-Xa) Levels (Units/mL) Unfractionated ?Continuous infusion ?0.3-0.7 Heparin ?0.3-0.6 for some neurology indications Blood specimen (specimen) 03/02/2018 12:24 AM EDT 03/02/2018 12:29 AM EDT Narrative Resulting Agency Comment Spec In Lab Dionte Chavez MD HEMATOLOGY ORDERABLE S [facility] [place] [address] * SCAN DOC: CARDIAC CATH (03/02/2018 12:00 AM EDT) Anatomical Region Laterality Modality Cardiac Other Narrative 03/02/2018 12:00 AM EDT Ordered by an unspecified provider. Scanning Provider MEDIA MGR SCAN EXT O RDR/RSLT * (ABNORMAL) Cardiac Enzymes (LEB/CGP) (03/01/2018 8:07 PM EDT) Troponin-T 0.20(H) 0.00 - 0.00 ng/mL [facility] Comment: The 99th percentile for Troponin T is less than 0.01 ng/mL, any detectable cTnT concentration using this assay should be considered elevated. According to the third universal definition of myocardial infarction the following criteria with a clinical presentation consistent with acute myocardial ischemia meets the diagnosis for a myocardial infarction (RI). Detection of a rise and/or fall of cTnT, with at least one value greater than the 99th percentile (> or = 0.01) and with at least one of the following ?? Symptoms of ischemia ?? New or presumed new significant RD-lpgbruw-O wave (ST-T) changes or new left bundle branch block (LBBB) ?? Development of pathologic Q waves in the ECG ?? Imaging evidence of new loss of viable myocardium or new regional wall motion abnormality ?? Identification of an intracoronary thrombus by angiography or autopsy Samples for cTnT testing should be obtained serially upon first assessment and again 3 to 6 hours later. If the clinical suspicion is high and previous samples have been negative an additional sample may be indicated. Reference: Third [place] Definition of Myocardial Infarction. Journal of the [place] [employer] 2012;60:1581-98 Creatine Kinase 282(H) 0 - 160 unit/L [facility] Blood specimen (specimen) 03/01/2018 8:07 PM EDT 03/01/2018 8:21 PM EDT Narrative Resulting Agency Comment Spec In Lab Cydney Ziegler SUDHAKAR CHEMISTRY ORDERABLES [facility] [place] [address] * (ABNORMAL) Differential, Automated (03/01/2018 5:37 PM EDT) Neutrophil % 76.3 % [facility] Neutrophil Absolute 12.15(H) 1.70 - 6.10 x10(3)/[facility] Lymph % 15.3 % [facility] Lymphocytes Abs 2.4 0.9 - 3.2 x10(3)/[facility] Monocyte % 7.6 % [facility] Monocyte Abs 1.2(H) 0.3 - 0.9 x10(3)/[facility] Eos % 0.1 % [facility] Eosinophils Abs 0.0 0.0 - 0.4 x10(3)/[facility] Basophil % 0.3 % [facility] Baso Absolute 0.0 0.0 - 0.1 x10(3)/[facility] Immature Gran % 0.40 % [facility] Comment: Immature granulocytes(IG's)percentage and absolute count will include metamyelocytes, myelocytes, and promyelocytes. Blood smears from CBCs yielding IG's will be scanned manually for concordance. If this scan disagrees with the automated IG or if promyelocytes are noted, a manual differential will be performed. Immature Gran Absolute 0.06(H) 0.00 - 0.04 x10(3)/ L [facility] Blood specimen (specimen) 03/01/2018 5:37 PM EDT 03/01/2018 5:45 PM EDT Narrative Resulting Agency Comment Spec In Lab Cydney Ziegler SUDHAKAR HEMATOLOGY ORDERABLE S [facility] [place] [address] * (ABNORMAL) Hemogram (03/01/2018 5:37 PM EDT) White Blood Cell 15.9(H) 4.0 - 9.5 x10(3)/mc L [facility] Red Blood Cell 4.98 4.00 - 5.21 x10(6)/mc L [facility] Hemoglobin 14.6 11.7 - 15.5 gm/dL [facility] Hematocrit 44.1 35.7 - 45.8 % [facility] Mean Cell Volume 88.6 82.6 - 94.4 fL [facility] Mean Cell Hemoglobin 29.3 27.1 - 32.0 pg [facility] Mean Cell Hemoglobin Concentration 33.1 31.7 - 35.0 gm/dL [facility] Platelet 261 145 - 357 x10(3)/mc L [facility] RDW Standard Deviation 39.9 37.0 - 46.0 [facility] RDW coefficient of variation 12.2 11.5 - 14.1 % [facility] Mean Platelet Volume 11.3 7.6 - 12.9 [facility] NRBC% auto 0.0 % [facility] NRBC Absolute 0.000 0.000 - 0.000 x10(3)/mc L [facility] Blood specimen (specimen) 03/01/2018 5:37 PM EDT 03/01/2018 5:45 PM EDT Narrative Resulting Agency Comment Spec In Lab Cydney Ziegler ENTERTAINMENT MANAGER HEMATOLOGY ORDERABLE S [facility] [place] [address] * Heparin (unfractionated) Level (03/01/2018 5:37 PM EDT) [facility] UF Heparin 0.82 IU/mL [facility] Comment: Guidelines for therapeutic unfractionated heparin levels are summarized below. Heparin (Anti-Xa) levels should be determined in a plasma sample that has been drawn 6 hours after a dose change i.e., steady-state has been reached. DRUG ?Dosing Schedule ? Target Peak Steady-State ?Heparin (Anti-Xa) Levels (Units/mL) Unfractionated ?Continuous infusion ?0.3-0.7 Heparin ?0.3-0.6 for some neurology indications Blood specimen (specimen) 03/01/2018 5:37 PM EDT 03/01/2018 5:45 PM EDT Narrative Resulting Agency Comment Spec In Lab Cydney Ziegler APRN HEMATOLOGY ORDERABLE S [facility] [place] [address] * (ABNORMAL) Differential, Automated (03/01/2018 2:16 PM EDT) [facility] Neutrophil % 80.4 % [facility] Neutrophil Absolute 12.27(H) 1.70 - 6.10 x10(3)/mc L [facility] Lymph % 10.6 % [facility] Lymphocytes Abs 1.6 0.9 - 3.2 x10(3)/mc L [facility] Monocyte % 8.1 % [facility] Monocyte Abs 1.2(H) 0.3 - 0.9 x10(3)/mc L [facility] Eos % 0.1 % [facility] Eosinophils Abs 0.0 0.0 - 0.4 x10(3)/[facility] Basophil % 0.2 % [facility] Baso Absolute 0.0 0.0 - 0.1 x10(3)/[facility] Immature Gran % 0.60 % [facility] Comment: Immature granulocytes(IG's)percentage and absolute count will include metamyelocytes, myelocytes, and promyelocytes. Blood smears from CBCs yielding IG's will be scanned manually for concordance. If this scan disagrees with the automated IG or if promyelocytes are noted, a manual differential will be performed. Immature Gran Absolute 0.09(H) 0.00 - 0.04 x10(3)/[facility] Blood specimen (specimen) 03/01/2018 2:16 PM EDT 03/01/2018 2:26 PM EDT Narrative Resulting Agency Comment Spec In Lab Cydney Ziegler APRN HEMATOLOGY ORDERABLE S [facility] [place] [address] * (ABNORMAL) Hemogram (03/01/2018 2:16 PM EDT) White Blood Cell 15.2(H) 4.0 - 9.5 x10(3)/[facility] Red Blood Cell 4.70 4.00 - 5.21 x10(6)/[facility] Hemoglobin 14.1 11.7 - 15.5 gm/dL [facility] Hematocrit 41.4 35.7 - 45.8 % [facility] Mean Cell Volume 88.1 82.6 - 94.4 fL [facility] Mean Cell Hemoglobin 30.0 27.1 - 32.0 pg [facility] Mean Cell Hemoglobin Concentration 34.1 31.7 - 35.0 gm/dL [facility] Platelet 254 145 - 357 x10(3)/mc L [facility] RDW Standard Deviation 39.3 37.0 - 46.0 fL [facility] RDW coefficient of variation 12.2 11.5 - 14.1 % [facility] Mean Platelet Volume 11.3 7.6 - 12.9 fL [facility] NRBC% auto 0.0 % [facility] NRBC Absolute 0.000 0.000 - 0.000 x10(3)/mc L [facility] Blood specimen (specimen) 03/01/2018 2:16 PM EDT 03/01/2018 2:26 PM EDT Narrative Resulting Agency Comment Spec In Lab Cydney Ziegler APRN HEMATOLOGY ORDERABLE S [facility] [place] [address] * (ABNORMAL) Cardiac Enzymes (LEB/CGP) (03/01/2018 2:16 PM EDT) Troponin-T 0.19(H) 0.00 - 0.00 ng/mL [facility] Comment: The 99th percentile for Troponin T is less than 0.01 ng/mL, any detectable cTnT concentration using this assay should be considered elevated. According to the third universal definition of myocardial infarction the following criteria with a clinical presentation consistent with acute myocardial ischemia meets the diagnosis for a myocardial infarction (RI). Detection of a rise and/or fall of cTnT, with at least one value greater than the 99th percentile (> or = 0.01) and with at least one of the following ?? Symptoms of ischemia ?? New or presumed new significant QI-mdszelv-W wave (ST-T) changes or new left bundle branch block (LBBB) ?? Development of pathologic Q waves in the ECG ?? Imaging evidence of new loss of viable myocardium or new regional wall motion abnormality ?? Identification of an intracoronary thrombus by angiography or autopsy Samples for cTnT testing should be obtained serially upon first assessment and again 3 to 6 hours later. If the clinical suspicion is high and previous samples have been negative an additional sample may be indicated. Reference: Third [place] Definition of Myocardial Infarction. Journal of the [place] [employer] 2012;60:1581-98 Creatine Kinase 219(H) 0 - 160 unit/L [facility] Blood specimen (specimen) 03/01/2018 2:16 PM EDT 03/01/2018 2:26 PM EDT Narrative Resulting Agency Comment Spec In Lab Cydney Ziegler APRN CHEMISTRY ORDERABLES Performing Organization Address [facility]/ZIP Co de Phone Number [facility] [place] [address] * (ABNORMAL) pro-Brain Natriuretic Peptide (03/01/2018 2:16 PM EDT) NT-proBNP 3,796(H) <=125 pg/mL [facility] Blood specimen (specimen) 03/01/2018 2:16 PM EDT 03/01/2018 2:26 PM EDT Narrative Resulting Agency Comment Spec In Lab Cydney Ziegler APRN CHEMISTRY ORDERABLES Performing Organization Address [facility] Co de Phone Number [facility] [place] [address] * (ABNORMAL) APTT (03/01/2018 2:16 PM EDT) Partial Thromboplastin Time 84(H) 25 - 37 sec [facility] Comment: The PTT is NOT appropriate for heparin monitoring. Use the Anti-Xa level for heparin monitoring (HEP UFH) or LMWH monitoring (HEP LMW). A PTT less than 37 seconds generally indicates adequate hemostasis. Blood specimen (specimen) 03/01/2018 2:16 PM EDT 03/01/2018 2:26 PM EDT Narrative Resulting Agency Comment Spec In Lab Cydney Ziegler APRN HEMATOLOGY ORDERABLE S Performing Organization Address City/[facility]/ZIP Co de Phone Number [facility] [place] [address] * Prothrombin Time (03/01/2018 2:16 PM EDT) Prothrombin Time 11.6 9.4 - 12.5 sec [facility] International Normalization Ratio 1.0 [facility] Comment: An INR <2.0 indicates adequate procoagulant activity for hemostasis in most patients without underlying bleeding disorders, though the INR may not adequately reflect hemostatic capacity in patients with liver disease and synthetic impairment. The recommended target INR range for therapeutic anticoagulation is 2.0 ? 3.0 for most applications, though lower and higher ranges may be appropriate depending on clinical circumstances. Blood specimen (specimen) 03/01/2018 2:16 PM EDT 03/01/2018 2:26 PM EDT Narrative Resulting Agency Comment Spec In Lab Cydney Ziegler APRN HEMATOLOGY ORDERABLE S [facility] [place] [address] * Basic Metabolic Panel (non-fasting) (03/01/2018 2:16 PM EDT) Glucose 105 65 - 199 mg/dL [facility] Comment:Diabetes: >=200 mg/d L plus symptoms Blood Urea Nitrogen 15 8 - 18 mg/dL [facility] Creatinine 0.79 0.70 - 1.20 mg/dL [facility] Sodium 141 135 - 145 mmol/L [facility] Potassium 4.0 3.5 - 5.0 mmol/L [facility] Comment: Please note: ??Patients with WBC >100,000 may have falsely elevated Potassium levels. ??For accurate Potassium quantification in these patients send serum separator tube (gold top) for subsequent determinations. ??Contact the Clinical Chemistry Laboratory if there are any questions. Chloride 99 98 - 107 mmol/L [facility] Carbon Dioxide 27 22 - 31 mmol/L [facility] Anion Gap 15 5 - 15 mmol/L [facility] Calcium 9.1 8.5 - 10.5 mg/dL [facility] Est Glomerular Filtration Rate 76 >=60 mL/min/1. 73 m?? [facility] Comment: The eGFR was calculated using the CKD-EPI equation. As with all creatinine based estimates of kidney function, eGFR values calculated with the CKD-EPI equation are not accurate in patients with acute kidney failure, extremes of body mass or the acutely ill. [email or web address] [email or web address] Companynkf eGFR 89 >=60 mL/min/1. 73 m?? [facility] Comment: The eGFR was calculated using the CKD-EPI equation. As with all creatinine based estimates of kidney function, eGFR values calculated with the CKD-EPI equation are not accurate in patients with acute kidney failure, extremes of body mass or the acutely ill. [email or web address] [email or web address] Blood specimen (specimen) 03/01/2018 2:16 PM EDT 03/01/2018 2:26 PM EDT Narrative Resulting Agency Comment Spec In Lab Cydney Ziegler APRN CHEMISTRY ORDERABLES [facility] [place] [address] * EKG 12 Lead (03/01/2018 1:59 PM EDT) Ventricular rate 50 BPM MUSE SYSTEM Atrial Rate 50 BPM MUSE SYSTEM P-R Interval 124 ms MUSE SYSTEM QRS Duration 70 ms MUSE SYSTEM Q-T Interval 522 ms MUSE SYSTEM QTC Calculated (Bezet) 475 ms MUSE SYSTEM Calculated P [place] 75 degrees MUSE SYSTEM Calculated R [place] 66 degrees MUSE SYSTEM Calculated T [place] 85 degrees MUSE SYSTEM INTERPRETATION Sinus bradycardia Otherwise normal ECG When compared with ECG of 25-FEB-2007 15:41, QT has shortened Confirmed by MD Merle, Madeline ([id number]) on 03/01/2018 6:19:09 PM MUSE SYSTEM 03/01/2018 1:59 PM EDT 03/01/2018 6:19 PM EDT Dionte Chavez MD ECG ORDERABLES [employer] SYSTEM documented in this encounter Visit Diagnoses Diagnosis Non-ST elevation myocardial infarction (NSTEMI) Acute myocardial infarction, subendocardial infarction, episode of care unspecified Other emphysema Hypertension, unspecified type NSTEMI (non-ST elevated myocardial infarction) Acute myocardial infarction, subendocardial infarction, episode of care unspecified NSTEMI (non-ST elevated myocardial infarction) Acute myocardial infarction, subendocardial infarction, episode of care unspecified documented in this encounter Admitting Diagnoses Diagnosis NSTEMI (non-ST elevated myocardial infarction) Acute myocardial infarction, subendocardial infarction, episode of care unspecified documented in this encounter Administered Medications Inactive Administered Medications - up to 3 most recent administrations Medication Order MAR Action Action Date Dose Rate Site amLODIPine (NORVASC) tablet 2.5 mg 2.5 mg, Oral, DAILY, First dose on Sun03/03/18 at 0900, Until Discontinued, Routine Given 03/03/2018 8:33 AM EDT 2.5 mg aspirin chewable tablet 81 mg 81 mg, Oral, DAILY, First dose on Sun03/02/18 at 0900, Until Discontinued, Routine Given 03/03/2018 8:32 AM EDT 81 mg Given 03/02/2018 9:25 AM EDT 81 mg atorvastatin (LIPITOR) tablet 80 mg 80 mg, Oral, EVERY EVENING, First dose on Sun03/01/18 at 1815, Until Discontinued, Routine Given 03/02/2018 6:08 PM EDT 80 mg Given 03/01/2018 6:19 PM EDT 80 mg atropine injection 1 mg 1 mg, Intravenous, Administer over 4 Hours, EVERY 5 MIN PRN, 2 doses, Starting on 03/02/18 at 1220, Until Sun03/03/18 at 1443, Other, vasovagal episode, Call interventional MD., Cath (Recovery-Hospital Unit), Routine budesonide (PULMICORT) nebulizer suspension 250 mcg 250 mcg, Nebulization, DAILY, First dose on Sun03/01/18 at 1700, Until Discontinued, Routine Given 03/03/2018 8:38 AM EDT 250 mcg citalopram (CeleXA) tablet 40 mg 40 mg, Oral, DAILY, First dose on Sun03/02/18 at 0900, Until Discontinued, Routine Given 03/03/2018 8:32 AM EDT 40 mg Given 03/02/2018 9:26 AM EDT 40 mg clopidogrel (PLAVIX) tablet 75 mg 75 mg, Oral, DAILY, First dose on Sun03/02/18 at 0900, Until Discontinued, Routine Given 03/03/2018 8:32 AM EDT 75 mg Given 03/02/2018 9:26 AM EDT 75 mg fentaNYL (PF) 50mcg/mL injection 25 mcg, Intravenous, Administer over 4 Hours, EVERY 30 MIN PRN, 4 doses, Starting on Sun03/02/18 at 1220, Until Sun03/03/18 at 1443, Pain, sheath removal, May repeat once while in Cath Recovery Unit, Cath (Recovery-Hospital Unit), Routine furosemide (LASIX) injection 40 mg 40 mg, Intravenous, ONCE, 1 dose, On Sun03/01/18 at 1800, Routine Given 03/01/2018 6:20 PM EDT 40 mg furosemide (LASIX) injection 40 mg 40 mg, Intravenous, ONCE, 1 dose, On Sun03/02/18 at 1000, Routine Given 03/02/2018 3:00 PM EDT 40 mg furosemide (LASIX) tablet 20 mg 20 mg, Oral, DAILY, First dose on Sun03/03/18 at 1000, Until Discontinued, Routine Given 03/03/2018 10:5 4 AM EDT 20 mg gabapentin (NEURONTIN) capsule 300 mg 300 mg, Oral, EVERY MORNING, First dose on Sun03/02/18 at 0700, Until Discontinued, Routine Given 03/03/2018 6:47 AM EDT 300 mg Given 03/02/2018 6:37 AM EDT 300 mg gabapentin (NEURONTIN) capsule 600 mg 600 mg, Oral, NIGHTLY, First dose on Sun03/01/18 at 2100, Until Discontinued, Routine Given 03/02/2018 6:08 PM EDT 600 mg Given 03/01/2018 8:52 PM EDT 600 mg heparin 25,000 units in dextrose 5% 500 mL infusion 0-5,000 Units/hr (0-100 mL/hr), Intravenous, CONTINUOUS, Starting on Sun03/01/18 at 1615, Until Sun03/03/18 at 0955, BEGIN infusion at 800 units per hr (12 units/kg/hr). MAX INITIAL infusion rate is 1,000 units/hr. Target Heparin UFH Level (anti-Xa activity) = 0.3 - 0.7 IU/mL Start adjustment schedule 6 hours after starting infusion. If Heparin UFH Level is: - less than 0.1 IU/mL, administer PRN bolus and increase rate by 250 units per hr (4 units/kg/hr) - 0.1 - 0.29 IU/mL, administer PRN bolus and increase rate by 150 units per hr (2 units/kg/hr) - 0.3 - 0.7 IU/mL, No Change - 0.71 - 0.85 IU/mL, decrease rate by 50 units per hr (1 units/kg/hr) - 0.86 - 1.05 IU/mL, stop infusion for 30 minutes, then decrease rate by 150 units per hr (2 units/kg/hr) - Greater than 1.05 IU/mL, stop infusion for 60 minutes, then decrease rate by 200 units per hour (3 units/kg/hr) Repeat Heparin UFH Level 6 hours after initiating heparin. Then 6 hours after each dose adjustment. When 2 consecutive Heparin UFH Level within target range of 0.3 - 0.7 IU/mL, change Heparin UFH Level to once every 24 hours with A.M. labs while on heparin. RN to order required Heparin UFH Level - Per Protocol, Routine, Indication: ACS (STEMI vs NSTEMI vs UA) Rate/Dose Change 03/01/2018 6:15 PM EDT 750 Units/hr 15 mL/hr New Bag 03/01/2018 4:15 PM EDT 800 Units/hr 16 mL/hr hydroxychloroquine (PLAQUENIL) tablet 200 mg 200 mg, Oral, DAILY, First dose on Sun03/02/18 at 0900, Until Discontinued, Routine Given 03/03/2018 9:24 AM EDT 200 mg Given 03/02/2018 9:26 AM EDT 200 mg ipratropium-albuterol (DUONEB) 0.5 mg-3 mg(2.5 mg base)/3 mL nebulizer solution 3 mL 3 mL, Nebulization, EVERY 4 HOURS PRN, Starting on Sun03/01/18 at 1401, Until Sun03/01/18 at 1617, Wheezing, Routine Given 03/01/2018 2:22 PM EDT 3 mLs ipratropium-albuterol (DUONEB) 0.5 mg-3 mg(2.5 mg base)/3 mL nebulizer solution 3 mL 3 mL, Nebulization, EVERY 6 HOURS, First dose (after last modification) on Sun03/01/18 at 2030, Until Discontinued, Routine Given 03/03/2018 8:32 AM EDT 3 mLs Given 03/02/2018 8:19 PM EDT 3 mLs Given 03/02/2018 6:38 AM EDT 3 mLs levothyroxine (SYNTHROID) tablet 50 mcg 50 mcg, Oral, EVERY MORNING, First dose on Sun03/02/18 at 0600, Until Discontinued, Routine Given 03/03/2018 6:47 AM EDT 50 mcg Given 03/02/2018 6:37 AM EDT 50 mcg lisinopril (PRINIVIL;ZESTRIL) tablet 2.5 mg 2.5 mg, Oral, DAILY, First dose on Sun03/02/18 at 0900, Until Discontinued, Routine Given 03/03/2018 8:32 AM EDT 2.5 mg Given 03/02/2018 9:26 AM EDT 2.5 mg metoprolol (LOPRESSOR) tablet 12.5 mg 12.5 mg, Oral, EVERY 12 HOURS SCHEDULED (2 times per day), First dose on Sun03/01/18 at 2100, Until Discontinued, Hold for SBP less than 90 or HR less than 50, Routine Given 03/03/2018 8:32 AM EDT 12.5 mg Given 03/02/2018 8:19 PM EDT 12.5 mg Given 03/02/2018 9:26 AM EDT 12.5 mg midazolam (PF) (VERSED) 1 mg/mL injection 1 mg 1 mg, Intravenous, Administer over 4 Hours, EVERY 1 HOUR PRN, 2 doses, Starting on 03/02/18 at 1220, Until 03/03/18 at 1443, Sleep, For sheath removal, May repeat once while in Cath Recovery Unit., Cath (Recovery-Hospital Unit), Routine potassium chloride (K-DUR/KLOR-CON) extended release tablet 40 mEq 40 mEq, Oral, EVERY 4 HOURS, 2 doses, First dose on Sun03/02/18 at 1000, Last dose on Sun03/02/18 at 1400, STAT Given 03/02/2018 2:58 PM EDT 40 mEq Given 03/02/2018 10:00 AM EDT 40 mEq predniSONE (DELTASONE) tablet 40 mg 40 mg, Oral, DAILY, 5 doses, First dose on 03/03/18 at 1000, Last dose on Rylie 03/07/18 at 0900, Routine Given 03/03/2018 10:53 AM EDT 40 mg documented in this encounter Active and Recently Administered Medications Times are shown in EDT. Scheduled Medication Order 03/01/2018 03/02/2018 03/03/2018 amLODIPine (NORVASC) tablet 2.5 mg 2.5 mg, Oral, DAILY, First dose on 03/03/18 at 0900, Until Discontinued, Routine 0833 (Given - Provider: Helen Walters, MEKA) aspirin chewable tablet 81 mg 81 mg, Oral, DAILY, First dose on 03/02/18 at 0900, Until Discontinued, Routine 0925 (Given - Provider: Delmy Ferrari RN) 0832 (Given - Provider: Helen Walters, MEKA) atorvastatin (LIPITOR) tablet 80 mg 80 mg, Oral, EVERY EVENING, First dose on Sun03/01/18 at 1815, Until Discontinued, Routine 1819 (Given - Provider: Juliann Morrison, MEKA) 1808 (Given - Provider: Delmy Ferrari, MEKA) budesonide (PULMICORT) nebulizer suspension 250 mcg 250 mcg, Nebulization, DAILY, First dose on Sun03/01/18 at 1700, Until Discontinued, Routine 1700 (Not Given - Provider: Juliann Morrison RN - Reason: Patient/family refused) 0900 (Not Given - Provider: Delmy Ferrari, MEKA - Reason: Patient/family refused) 0838 (Given - Provider: Helen Walters, MEKA) citalopram (CeleXA) tablet 40 mg 40 mg, Oral, DAILY, First dose on 03/02/18 at 0900, Until Discontinued, Routine 0926 (Given - Provider: Delmy Ferrari RN) 0832 (Given - Provider: Helen Walters, MEKA) clopidogrel (PLAVIX) tablet 75 mg (CANCELED) 75 mg, Oral, DAILY, First dose on 03/02/18 at 0900, Until Discontinued, Routine 0926 (Given - Provider: Delmy Ferrari RN) 0832 (Given - Provider: Helen Walters, MEKA) furosemide (LASIX) injection 40 mg (COMPLETED) 40 mg, Intravenous, ONCE, 1 dose, On Sun03/01/18 at 1800, Routine 1820 (Given - Provider: Juliann Morrison RN) furosemide (LASIX) injection 40 mg (COMPLETED) 40 mg, Intravenous, ONCE, 1 dose, On Sun03/02/18 at 1000, Routine 1500 (Given - Provider: Delmy Ferrari RN) furosemide (LASIX) tablet 20 mg 20 mg, Oral, DAILY, First dose on Sun03/03/18 at 1000, Until Discontinued, Routine 1054 (Given - Provider: Helen Walters RN) gabapentin (NEURONTIN) capsule 300 mg 300 mg, Oral, EVERY MORNING, First dose on Sun03/02/18 at 0700, Until Discontinued, Routine 06 (Given - Provider: Pepper Olivo RN) 0647 (Given - Provider: Pepper Olivo RN) gabapentin (NEURONTIN) capsule 600 mg 600 mg, Oral, NIGHTLY, First dose on Sun03/01/18 at 2100, Until Discontinued, Routine 2051 (Given - Provider: Pepper Olivo RN) 180 (Given - Provider: Delmy Ferrari RN) hydroxychloroquine (PLAQUENIL) tablet 200 mg 200 mg, Oral, DAILY, First dose on Sun03/02/18 at 0900, Until Discontinued, Routine 09 (Given - Provider: Delmy Ferrari RN) 0924 (Given - Provider: Helen Walters RN) ipratropium-albutero l (DUONEB) 0.5 mg-3 mg(2.5 mg base)/3 mL nebulizer solution 3 mL 3 mL, Nebulization, EVERY 6 HOURS, First dose (after last modification) on Sun03/01/18 at 2030, Until Discontinued, Routine 2051 (Given - Provider: Pepper Olivo RN) 0230 (Hold - Provider: Pepper Olivo RN - Reason: Patient Unable)0638 (Given - Provider: Pepper Olivo RN)0830 (Not Given - Provider: Delmy Ferrari RN - Reason: Contraindicated - Comment: dose was given at 0638)1458 (Not Given - Provider: Delmy Ferrari RN - Reason: Patient/family refused)2018 (Given - Provider: Pepper Olivo RN) 023 (Not Given - Provider: Pepper Olivo RN - Reason: Patient/family refused)0832 (Given - Provider: Helen Walters, MEKA) levothyroxine (SYNTHROID) tablet 50 mcg 50 mcg, Oral, EVERY MORNING, First dose on 03/02/18 at 0600, Until Discontinued, Routine 0637 (Given - Provider: Pepper Olivo RN) 0647 (Given - Provider: Pepper Olivo RN) lisinopril (PRINIVIL;ZESTRIL) tablet 2.5 mg 2.5 mg, Oral, DAILY, First dose on 03/02/18 at 0900, Until Discontinued, Routine 0926 (Given - Provider: Delmy Ferrari RN) 0832 (Given - Provider: Helen Walters RN) metoprolol (LOPRESSOR) tablet 12.5 mg 12.5 mg, Oral, EVERY 12 HOURS SCHEDULED (2 times per day), First dose on Sun03/01/18 at 2100, Until Discontinued, Hold for SBP less than 90 or HR less than 50, Routine 2100 (Given - Provider: Pepper Olivo RN) 0926 (Given - Provider: Delmy Ferrari RN)2018 (Given - Provider: Pepper Olivo RN) 0832 (Given - Provider: Helen Walters RN) potassium chloride (K-DUR/KLOR-CON) extended release tablet 40 mEq (COMPLETED) 40 mEq, Oral, EVERY 4 HOURS, 2 doses, First dose on 03/02/18 at 1000, Last dose on 03/02/18 at 1400, STAT 1000 (Given - Provider: Delmy Ferrari RN)1458 (Given - Provider: Delmy Ferrari RN) predniSONE (DELTASONE) tablet 40 mg 40 mg, Oral, DAILY, 5 doses, First dose on Sun03/03/18 at 1000, Last dose on Rylie 03/07/18 at 0900, Routine 1053 (Given - Provider: Helen Walters RN) Continuous Medication Order 03/01/2018 03/02/2018 03/03/2018 heparin 25,000 units in dextrose 5% 500 mL infusion (CANCELED)(Linked Group 1) 0-5,000 Units/hr (0-100 mL/hr), Intravenous, CONTINUOUS, Starting on Sun03/01/18 at 1615, Until Sun03/03/18 at 0955, BEGIN infusion at 800 units per hr (12 units/kg/hr). MAX INITIAL infusion rate is 1,000 units/hr. Target Heparin UFH Level (anti-Xa activity) = 0.3 - 0.7 IU/mL Start adjustment schedule 6 hours after starting infusion. If Heparin UFH Level is: - less than 0.1 IU/mL, administer PRN bolus and increase rate by 250 units per hr (4 units/kg/hr) - 0.1 - 0.29 IU/mL, administer PRN bolus and increase rate by 150 units per hr (2 units/kg/hr) - 0.3 - 0.7 IU/mL, No Change - 0.71 - 0.85 IU/mL, decrease rate by 50 units per hr (1 units/kg/hr) - 0.86 - 1.05 IU/mL, stop infusion for 30 minutes, then decrease rate by 150 units per hr (2 units/kg/hr) - Greater than 1.05 IU/mL, stop infusion for 60 minutes, then decrease rate by 200 units per hour (3 units/kg/hr) Repeat Heparin UFH Level 6 hours after initiating heparin. Then 6 hours after each dose adjustment. When 2 consecutive Heparin UFH Level within target range of 0.3 - 0.7 IU/mL, change Heparin UFH Level to once every 24 hours with A.M. labs while on heparin. RN to order required Heparin UFH Level - Per Protocol, Routine, Indication: ACS (STEMI vs NSTEMI vs UA) 1615 (New Bag - Provider: Juliann Morrison RN)1815 (Rate/Dose Change - Provider: Juliann Morrison RN) PRN Medication Order 03/01/2018 03/02/2018 03/03/2018 acetaminophen (TYLENOL) tablet 650 mg 650 mg, Oral, EVERY 6 HOURS PRN, Starting on Sun03/01/18 at 1555, Until Sun03/03/18 at 1443, Pain, Headaches, Maximum dose of acetaminophen is 4000 mg from all sources in 24 hours., Routine albuterol (PROVENTIL) nebulizer solution 2.5 mg 2.5 mg, Nebulization, EVERY 4 HOURS PRN, Starting on Sun03/01/18 at 1555, Until Sun03/03/18 at 1443, Wheezing, Routine atropine injection 1 mg 1 mg, Intravenous, Administer over 4 Hours, EVERY 5 MIN PRN, 2 doses, Starting on 03/02/18 at 1220, Until Sun03/03/18 at 1443, Other, vasovagal episode, Call interventional MD., Cath (Recovery-Hospital Unit), Routine fentaNYL (PF) 50mcg/mL injection 25 mcg, Intravenous, Administer over 4 Hours, EVERY 30 MIN PRN, 4 doses, Starting on 03/02/18 at 1220, Until Sun03/03/18 at 1443, Pain, sheath removal, May repeat once while in Cath Recovery Unit, Cath (Recovery-Hospital Unit), Routine ipratropium-albuterol (DUONEB) 0.5 mg-3 mg(2.5 mg base)/3 mL nebulizer solution 3 mL (CANCELED) 3 mL, Nebulization, EVERY 4 HOURS PRN, Starting on Sun03/01/18 at 1401, Until Sun03/01/18 at 1617, Wheezing, Routine 1422 (Given - Provider: Tyrone Franco RN) midazolam (PF) (VERSED) 1 mg/mL injection 1 mg 1 mg, Intravenous, Administer over 4 Hours, EVERY 1 HOUR PRN, 2 doses, Starting on 03/02/18 at 1220, Until Sun03/03/18 at 1443, Sleep, For sheath removal, May repeat once while in Cath Recovery Unit., Cath (Recovery-Hospital Unit), Routine midazolam (PF) (VERSED) 1 mg/mL multi-dose injection (CANCELED) ONCE PRN, Starting on 03/02/18 at 1040, Until 03/02/18 at 1156, Cath (Intra-Procedure), Routine 1040 (Given - Provider: Jessica Bowman RN) nitroGLYcerin (NITROSTAT) SL tablet 0.4 mg 0.4 mg, Sublingual, EVERY 5 MIN PRN, Starting on Sun03/01/18 at 1555, Until Sun03/03/18 at 1443, Chest pain, May repeat every 5 minutes for a total of three doses. Notify provider if chest pain not relieved with nitroglycerin. Do not administer nitroglycerin if the patient has received or taken phosphodiesterase (PDE-5) inhibitors such as sildenafil, tadalafil or vardenafil within the last 24 to 72 hours., Routine ondansetron (ZOFRAN) injection (CANCELED) ONCE PRN, Starting on 03/02/18 at 1036, Until 03/02/18 at 1156, Cath (Intra-Procedure), Routine 1036 (Given - Provider: Jessica Bowman RN) Linked Groups Order Group 1: heparin (porcine) injection 0-4,000 Units (CANCELED) 0-4,000 Units, Intravenous, BOLUS PER HEPARIN PROTOCOL, Starting on Sun03/01/18 at 1555, Until Sun03/03/18 at 0955, Per Protocol, START ADJUSTMENT SCHEDULE 6 HOURS AFTER STARTING INFUSION Heparin UFH Level between 0.1 - 0.29 IU/mL: Bolus 2,000 units Heparin UFH Level less than 0.1 IU/mL: Bolus 4,000 units, Routine And heparin 25,000 units in dextrose 5% 500 mL infusion (CANCELED)Jump to med 0-5,000 Units/hr (0-100 mL/hr), Intravenous, CONTINUOUS, Starting on Sun03/01/18 at 1615, Until Sun03/03/18 at 0955, BEGIN infusion at 800 units per hr (12 units/kg/hr). MAX INITIAL infusion rate is 1,000 units/hr. Target Heparin UFH Level (anti-Xa activity) = 0.3 - 0.7 IU/mL Start adjustment schedule 6 hours after starting infusion. If Heparin UFH Level is: - less than 0.1 IU/mL, administer PRN bolus and increase rate by 250 units per hr (4 units/kg/hr) - 0.1 - 0.29 IU/mL, administer PRN bolus and increase rate by 150 units per hr (2 units/kg/hr) - 0.3 - 0.7 IU/mL, No Change - 0.71 - 0.85 IU/mL, decrease rate by 50 units per hr (1 units/kg/hr) - 0.86 - 1.05 IU/mL, stop infusion for 30 minutes, then decrease rate by 150 units per hr (2 units/kg/hr) - Greater than 1.05 IU/mL, stop infusion for 60 minutes, then decrease rate by 200 units per hour (3 units/kg/hr) Repeat Heparin UFH Level 6 hours after initiating heparin. Then 6 hours after each dose adjustment. When 2 consecutive Heparin UFH Level within target range of 0.3 - 0.7 IU/mL, change Heparin UFH Level to once every 24 hours with A.M. labs while on heparin. 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
--- OUTSIDE RECORDS SUMMARY | 2024-05-02 13:59 | XMS_ITS | Encounter Summary ---
Author Organization [facility] Address [facility] [address] Care Team Providers Care Hotel Assistant Manager Name Role Phone John Diaz MD Primary Care Provider [phone] Reason for Visit * Reason Comments Coronary Artery Disease Hypertension Post Hospital Discharge Ekg Encounter Details Date Type Department Care Team (Late st Contact Info) Description 04/02/2018 1:40 PM EDT Office Visit Cardiology at [address] [address] Dionte Chavez MD [facility] [place] [address] NSTEMI (non-ST elevated myocardial infarction) (Primary Dx); Hypertension, unspecified type Social History Tobacco Use [...] Sign Reading Time Taken Comments Blood Pressure 106/41 04/02/2018 1:23 PM EDT Pulse 54 04/02/2018 1:23 PM EDT Temperature - - Respiratory Rate - - Oxygen Saturation 97% 04/02/2018 1:23 PM EDT Inhaled Oxygen Concentration - - Weight 67.6 kg (149 lb) 04/02/2018 1:23 PM EDT Height - - Body Mass Index 30.09 03/01/2018 12:45 PM EDT documented in this encounter Patient Instructions * Patient Instructions* Dionte Chavez MD - 04/02/2018 1:40 PM EDT I would stop using Hemp Oil. It may be effecting your heart. Continue with your other medications. I think it is great that you are going to Physical Therapy. Call me with any questions or concerns. documented in this encounter Progress Notes * Dionte Chavez MD - 04/02/2018 1:40 PM EDT SUBJECTIVE: 67 year old woman being seen for a CC of CAD. Patient Active Problem List Diagnosis ??? NSTEMI (non-ST elevated myocardial infarction) ??? Epidural lipomatosis ??? Spinal stenosis of lumbar region with radiculopathy ??? Hx of adenomatous colonic polyps 03/23/08: tubular adenoma at [facility] ??? Hypothyroid ??? Alopecia Scarring, alopecia, and hair loss, likely multifactorial. ??? Adult ADHD ??? Anxiety ??? COPD (chronic obstructive pulmonary disease) D/C'd cigs ~ 2005 p ~ 25 pack-yrs. ??? Hypertension ??? Insomnia ??? Seizure disorder Absence seizures ??? Systemic lupus erythematosus mild systemic lupus erythematosus. Seen in past by Dr. Sherri Wilson. ??? Osteopenia DXA 12/[address] [facility] LS SPINE T SCORE -1.4; Left hip T SCORE -0.7 Past Surgical History: Procedure Laterality Date ??? ANKLE FRACTURE SURGERY 2006 ??? CREATED BY INTERFACE open reduction, internal fixation-right ankle Procedure Date: 2006 Family History Problem Relation Age of Onset ??? Chronic Obstructive Pulmonary Disease Mother ??? Diabetes Father Social History Social History ??? Marital status: [...] medical marijuana card ??? Sexual activity: Not Asked Other Topics Concern ??? None Social History Narrative Apr 2012: lives in [place], [place] ([place] [facility]) partner: Apollo Dumont (d. 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 martha lawn, uses wetracee Current Outpatient Prescriptions Medication Sig Dispense Refill ??? ipratropium-albuterol (DUONEB) 0.5 mg-3 mg(2.5 mg [...] by mouth daily. 30 tablet 2 ??? aspirin 81 mg Tablet, Delayed Release (E.C.) Take 1 tablet by mouth daily. 30 tablet 3 ??? PROAIR HFA 90 mcg/actuation HFA Aerosol Inhaler Inhale 2 puffs into the lungs 2 times daily. ??? lisinopril (PRINIVIL;ZESTRIL) 2.5 mg Tablet daily. ??? gabapentin (NEURONTIN) 300 mg Capsule TAKE ONE CAPSULE BY MOUTH EVERY MORNING AND 2 CAPSULES ATBEDTIME 270 capsule 3 ??? hydroxychloroquine (PLAQUENIL) 200 mg Tablet Take 1 tablet by mouth daily. 90 tablet 0 ??? COMBIVENT RESPIMAT 20-100 mcg/actuation Mist INHALE ONE PUFF BY MOUTH FOUR TIMES A DAY 4 Inhaler 11 ??? citalopram (CELEXA) 20 mg Tablet TAKE ONE TABLET BY MOUTH EVERY DAY (Patient taking differently: TAKE 2 TABLET BY MOUTH EVERY DAY) 90 tablet 3 ??? furosemide (LASIX) 20 mg Tablet Take 1 tablet by mouth daily. (Patient not taking: Reported on 04/02/2018) 30 tablet 0 ??? nitroGLYcerin (NITROSTAT) 0.4 mg Tablet, Sublingual Place 1 tablet under the tongue every 5 minutes as needed for Chest pain. 25 tablet 3 ??? predniSONE (DELTASONE) 20 mg Tablet Take 2 tablets by mouth daily. (Patient not taking: Reported on 04/02/2018) 4 tablet 0 ??? PULMICORT FLEXHALER 180 mcg/actuation Aerosol Powdr Breath Activated daily as needed. ??? LORazepam (ATIVAN) 1 mg Tablet 1 tab at HS as needed for sleep. May take 1 tab during the day for anxiety if needed. (Patient not taking: Reported on 04/02/2018) 30 tablet 0 ??? levothyroxine (SYNTHROID) 50 mcg Tablet Take 1 tablet by mouth daily. (Patient not taking: Reported on 04/02/2018) 90 tablet 3 ??? EPINEPHrine (EPIPEN) 0.3 mg/0.3 mL (1:1,000) injection Inject 0.3 mLs into the muscle daily as needed. 2 each 11 No current facility-administered medications for this visit. Allergies Allergen Reactions ??? Bee Pollen Hives HPI: FROM 04/02/18: Hospitalied 03/01- for a NSTEMI. No flow limiting CAD on cath but LVEDP 20. Normal EF on echo without segmental WMA (see below). Diagnosis of exclusion was coronary vasospasm. Has done well since discharge. Her lasix and metoprolol have been stopped by her PCP. She is not enrolled in cardiac rehab because of travel issues but has started PT. Today she reports a use of Hemp Oil/MCT Oil for help with her breathlessness. She did use this the morning of her UT. She has continued to use it and finds that it causes transient chest pain and SOB that last for 5-10 minutes. If she does not take this medication she does not experience these symptoms. ROS: The patient denies or endorses (+): General: Unusual fatigue, fever, night sweats Cardiac: Unusual chest pains and/or pressures, unusual RODRIGUEZ, orthopnea, PND, peripheral edema, new nocturia, palpitations, presyncope, syncope Pulmonary: Cough, wheezing, sputum production, hemoptysis Neuro: TIA or stroke-like symptoms Vascular: Exertional calf, thigh or buttock pain to suggest claudication : Hematuria GI: Melena, bright red blood per rectum MS: Myalgias or arthralgias Endo: Cold or heat intolerance PHYSICAL EXAM Blood pressure 106/41, pulse 54, weight 67.6 kg (149 lb), SpO2 97 %. Middle aged woman [...] See remainder of report for additional findings. ASSESSMENT & PLAN: FROM 04/02/18: I think it is possible that her medical cannabis was responsible for her NSTMI and I advised her to stop its use. Usually, the cannabis would could cause problemsfor patients with flow limiting CAD which she does not have. I will have to research this. She remains on ASA, atorvastatin and low dose amlodipine for her non-flow limiting CAD. Her BP is under goodcontrol She is not diabetic. She no longer smokes cigarettes. She is exercising. She is trying to eat a heart healthy diet. Time was spent in a face to [...] PM EDT Office Visit Cardiology at [address] [place] [address] Estiven Raza MD [facility] [place] [address] documented as of this encounter Procedures Procedure Name Priority Date/Time Associated Diagnosis Comments EKG 12-LEAD Routine 04/02/2018 1:33 PM EDT NSTEMI (non-ST elevated myocardial infarction) documented in this encounter Results * EKG 12 Lead (04/02/2018 1:33 PM EDT) Ventricular rate 54 BPM MUSE SYSTEM Atrial Rate 54 BPM MUSE SYSTEM P-R Interval 102 ms MUSE SYSTEM QRS Duration 70 ms MUSE SYSTEM Q-T Interval 468 ms MUSE SYSTEM QTC Calculated (Bezet) 443 ms MUSE SYSTEM Calculated P [place] 53 degrees MUSE SYSTEM Calculated R [place] 63 degrees MUSE SYSTEM Calculated T [place] 85 degrees MUSE SYSTEM INTERPRETATION Sinus bradycardia with short HI Otherwise normal ECG When compared with ECG of 03-MAR-2018 08:08, No significant change was found Confirmed by MD MIKE, JOSH ([id number]) on 04/02/2018 6:12:32 PM MUSE SYSTEM 04/02/2018 1:33 PM EDT 04/02/2018 6:12 PM EDT Dionte Chavez MD ECG ORDERABLES MUSE SYSTEM * (ABNORMAL) Basic Metabolic Panel (non-fasting) (04/02/2018 [...] of body mass or the acutely ill. [email or web address] eGFR 61 >=60 mL/min/1. 73 m?? [facility] Comment: The eGFR was calculated using the CKD-EPI equation. As with all creatinine based estimates of kidney function, eGFR values calculated with the CKD-EPI equation are not accurate in patients with acute kidney failure, extremes of body mass or the acutely ill. [email or web address] Blood specimen (specimen) 04/02/2018 12:29 PM EDT 04/02/2018 12:42 PM EDT Narrative Resulting Agency Comment Spec In Lab Dionte Chavez MD CHEMISTRY ORDERABLES [place] [address] documented in this encounter Visit Diagnoses Diagnosis NSTEMI (non-ST elevated myocardial infarction)- Primary Acute myocardial infarction, subendocardial infarction, episode of care unspecified Hypertension, unspecified type documented in this encounter Care Teams Hotel Assistant Manager Relationship Specialty Start Date End Date John Diaz MD [address] [place] [address] PCP - General 12/22/14 07/18/21 documented as of this encounter
--- OUTSIDE RECORDS SUMMARY | 2024-05-02 13:59 | XMS_ITS | Encounter Summary ---
Author Organization Replaced By [facility] Address [facility] [place] [place] [address] Care Team Providers Care Wireless Network Engineer Name Role Phone John Diaz MD Primary Care Provider [phone] Encounter Details Date Type Department Care Team (Late st Contact Info) Description 02/28/2018 External [place] [address] Social History Tobacco Use Types Packs/Day Years [...] PM EDT Office Visit Cardiology at [address] [address] Estiven Raza MD [facility] [place] [address] documented as of this encounter Procedures Procedure Name Priority Date/Time Associated Diagnosis Comments ECG SCAN Routine 02/28/2018 ECG SCAN Routine 02/28/2018 ECG SCAN Routine 02/28/2018 documented in this encounter Results * Scan Doc: ECG (02/28/2018) Historical Provider MD MEDIA MGR SCAN EX T ORDR/RSLT * Scan Doc: ECG (02/28/2018) Historical Provider MD MEDIA MGR SCAN EX T ORDR/RSLT * Scan Doc: ECG (02/28/2018) Historical Provider MD MEDIA MGR SCAN EX T ORDR/RSLT documented in this encounter Visit Diagnoses Not on filedocumented in this encounter Care Teams Wireless Network Engineer Relationship Specialty Start Date End Date John Diaz MD [address] [place] [address] PCP - General 12/22/14 07/18/21 documented as of this encounter
--- OUTSIDE RECORDS SUMMARY | 2024-05-02 13:59 | XMS_ITS | Encounter Summary ---
Author Organization [facility] Address [facility] [place] [address] Care Team Providers Care Clam Grader Name Role Phone John Diaz MD Primary Care Provider [phone] Encounter Details Date Type Department Care Team (Late st Contact Info) Description 05/20/2018 Tele[place] [address] Ariadna Solis Social History Tobacco Use Types Packs/Day Years [...] encounter Miscellaneous Notes * Telephone Encounter - Ariadna Solis - 05/20/2018 2:52 PM EDT Telephone call to patient, rescheduled daniele to this 05/23 * Telephone Encounter - Ariadna Solis - 05/20/2018 2:52 PM EDT ----- Message from Martina Rosen sent at 05/20/2018 2:34 PM EDT ----- Regarding: Phones Patient called to find out when her next appointment with Dr. Monzon was because she lost her card.I told her it looked like the one on the was cancelled so please call her back to reschedule. [phone]. Thank you. documented in this encounter Plan of Treatment Upcoming Encounters Date Type Department Care Team (Late st Contact Info) Description 05/29/2024 2:00 PM EDT Office Visit Cardiology at [address] [address] Estiven Raza MD [facility] [place] [address] documented as of this encounter Visit Diagnoses Not on filedocumented in this encounter Care Teams Clam Grader Relationship Specialty Start Date End Date John Diaz MD [address] [facility] [address] [place] [address] PCP - General 12/22/14 07/18/21 documented as of this encounter
--- OUTSIDE RECORDS SUMMARY | 2024-05-02 13:59 | XMS_ITS | Encounter Summary ---
Author Organization [facility] [place] [address] Care Team Providers Care Senior Staff Specialized Employment Name Role Phone John Diaz MD Primary Care Provider [phone] Reason for Visit * Auth/Cert Specialty Diagnoses / Procedures Referred By Rangel weldon Referred To Contact Diagnoses NSTEMI (non-ST elevated myocardial infarction) NSTEMI NSTEMI Procedures CARDIAC CATHETERIZATION Referral ID Status Reason Start Date Expiration Date Visits Re quested Visits Authorized [id number] 1 1 Encounter Details Date Type Department Care Team (Latest Contact Info) Description 03/02/2018 2:55 PM EDT - 03/02/2018 11:59 PM EDT Hospital Encounter [place] [phone] Discharge Disposition: Home Social History Tobacco Use [...] rothiazide (DYAZIDE) 37.5-25 mg Capsule daily. 12/26/2017 8 amLODIPine (NORVASC) 2.5 mg Tablet Take 1 [...] PM EDT Office Visit Cardiology at [address] [address] Estiven Raza MD [facility] [place] [address] documented as of this encounter Procedures Procedure Name Priority Date/Time Associated Diagnosis Comments ECHO COMPLETE Routine 03/02/2018 3:44 PM EDT Non-ST elevation myocardial infarction (NSTEMI) documented in this encounter Results * ECHO COMPLETE (03/02/2018 3:44 PM EDT) Anatomical Region Laterality Modality Other 03/02/2018 Narrative 03/02/2018 9:08 PM EDT Procedure: ?Transthoracic Echocardiogram Patient: ?GONZALEZ THANH Trevino ? (Age): 1950(67y) Med Rec#: ? [id number] ?Sex: ?F ? Site Loc: ? [facility] ?Ht / Wt: ??150(cm)/68(kg) Pt. Loc: ?Adult Floor ? BSA: ?1.63 Study Date: ?? 03/02/2018 ?Pt. Type: Outpatient Tape: ? Referring: KILOJ Reading: Saul Leon ([id number]) Statement Services Representative: Naeem Acosta RDCS Diagnosis: *Non-ST elevation (NSTEMI) myocardial infarction (I21.4) [...] E-wave Vmax ?1.1 ?m/sec ? MV deceleration dynq221.9 ?msec ? MV A-wave Vmax ?1.1 ?m/sec [...] ? Mid-Inferior ?Normal ? Mid-Inferoseptal ?Normal ? Barry-Septal ? Normal ? Barry-Anterior ? Normal ? Barry-Lateral ?Normal ? Barry-Inferior ? Normal ? Barry-Tip ?Normal ? This report has been electronically signed by: Saul Leon M.D. ? 03/02/2018 21:08:36 Images reviewed and interpretation verified [facility] Cardiac Ultrasound Laboratory Procedure Note Saul Leon MD - 03/02/2018 Procedure: Transthoracic Echocardiogram Patient: ALEX Trevino (Age): 1950(67y) Med Rec#: [id number] Sex: F Site Loc: [facility] Ht / Wt: 150(cm)/68(kg) Pt. Loc: Adult Floor BSA: 1.63 Study Date: 03/02/2018 Pt. Type: Outpatient Tape: Referring: LAHEYMICHAELJ Reading: Saul Leon ([id number]) Statement Services Representative: Naeem Acosta [facility] Diagnosis: *Non-ST elevation (NSTEMI) myocardial infarction (I21.4) [...] MV E-wave Vmax 1.1 m/sec MV deceleration [id number] msec MV A-wave Vmax 1.1 m/sec MV [...] Normal Mid-Posterolateral Normal Mid-Inferior Normal Mid-Inferoseptal Normal Barry-Septal Normal Barry-Anterior Normal Barry-Lateral Normal Barry-Inferior Normal Barry-Tip Normal This report has been electronically signed by: Saul Leon M.D. 03/02/2018 21:08:36 Images reviewed and interpretation verified [facility] Cardiac Ultrasound Laboratory Griselda Ziegler APRN ECHO ORDERABLES documented in this encounter Visit Diagnoses Not on filedocumented in this encounter Care Teams Senior Staff Specialized Employment Relationship Specialty Start Date End Date John Diaz MD [address] [place] [address] PCP - General 12/22/14 07/18/21 documented as of this encounter
--- OUTSIDE RECORDS SUMMARY | 2024-05-02 13:59 | XMS_ITS | Encounter Summary ---
Author Organization [facility] [place] [address] Care Team Providers Care Seafood Service Team Member Name Role Phone John Diaz MD Primary Care Provider [phone] Encounter Details Date Type Department Care Team (Late st Contact Info) Description 05/16/2018 [place] [phone] Juan Venegas Social History Tobacco Use Types [...] * Telephone Encounter - Juan Venegas - 05/16/2018 11:31 AM EDT Patient called to confirm her appointment, and also to say that she may be about 5 minutes late arriving for her appointment. documented in this encounter Plan of Treatment Upcoming Encounters Date Type Department Care Team (Late st Contact Info) Description 05/29/2024 2:00 PM EDT Office Visit Cardiology at [address] [address] Estiven Raza MD [facility] [place] [address] documented as of this encounter Visit Diagnoses Not on filedocumented in this encounter Care Teams Seafood Service Team Member Relationship Specialty Start Date End Date John Diaz MD [address] [facility] 1 [place] [address] PCP - General 12/22/14 07/18/21 documented as of this encounter
--- OUTSIDE RECORDS SUMMARY | 2024-05-02 13:59 | XMS_ITS | Encounter Summary ---
Author Organization [facility] Address [facility] [place] [address] Care Team Providers Care Dictaphone Transcriber Name Role Phone John Diaz MD Primary Care Provider [phone] Reason for Visit * Auth/Cert Specialty Diagnoses / Procedures Referred By Rangel weldon Referred To Contact Diagnoses NSTEMI (non-ST elevated myocardial infarction) NSTEMI NSTEMI Procedures CARDIAC CATHETERIZATION Referral ID Status Reason Start Date Expiration Date Visits Re quested Visits Authorized [id number] 1 1 Encounter Details Date Type Department Care Team (Late st Contact Info) Description 03/02/2018 10:00 AM EDT - 03/02/2018 11:42 AM EDT Surgery [place] [address] Pepper Menendez MD [facility] [address] CARDIAC CATHETERIZATION Social History Tobacco Use Types Packs/Day Years [...] Thanh Johnson Patient Age: 67 y.o. Language: Ethiopian Race: White Ethnicity: Not nor Admit date: [...] Baseline Frailty Assessment: 3 (MANAGING WELL)??Definitions from [place] Study of Health and Aging Clinical Frailty [...] hx of seizure disorder who presents from [facility] for further evaluation and management of [...] syncope. ?? Hospital Course: On admission to [facility], the patient had no complaints of chest pain or shortness of breath. Telemetry was attached which showed normal sinus rhythm. Heparin drip was infusing. [facility] records/transfer records were reviewed. Baseline labs were checked and/or drawn. NSTEMI, suspected coronary vasospasm She was transferred to [facility] for NSTEMI, and was previously loaded with aspirin and plavix at OSH. Given the patient's risk factors, presentation, and positive biomarkers (0.19, 0.20), it was decided to proceed with coronary angiography. The patient went to the cardiac farm laborer for a diagnostic cathwhich showed normal [...] appointments: During 8am-5pm Sunday through Sunday call [phone] to speak with a nurse in the cardiology clinic All other times call [phone] and ask to speak to the vacuum form operator assessment consultant. Return to work: Retired Driving: No driving for 48 hours after catheterization. Follow up Appointments: PCP John Diaz MD [phone] Diaz's office on Sunday to schedule a post hospital follow up in 7-10 days. Cardiology You will be contacted with this appointment. Labs: 1. Please have lab work checked in 1 week at your local lab, non fasting. Future Appointments and Orders Future Appointments Provider Department Dept Phone 04/30/2018 11:00 AM Jaleesa Sawyer MD Rheumatology at [place] [phone] Future Orders Complete By Expires Basic Metabolic Panel (non-fasting) [LAB15 Custom] 03/10/2018 03/04/2019 Process Instructions: Scheduling Instructions: Comments: Questions: Referral to Cardiac Rehab [[id number] Custom] As directed Process Instructions: If no [...] of COPD, would like to establish with [facility] pulm Discharge References/Attachments Sunshine Ziegler APRN Cardiovascular Medicine 03/03/2018 documented in this encounter Discharge Instructions * Discharge Instructions* Cydney Ziegler APRN - 03/03/2018 12:21 PM EDT Call your doctor if: Chest pain, shortness of breath, pain or swelling in legs occurs. If you have non-emergent questions between now and the time of your follow up appointments: During 8am-5pm Sunday through Sunday call [phone] to speak with a nurse in the cardiology clinic All other times call [phone] and ask to speak to the vacuum form operator assessment consultant. Return to work: Retired Driving: No driving for 48 hours after catheterization. Follow up Appointments: PCP John Diaz MD [phone] Diaz's office on Sunday [...] Progress Note Patient Name: Thanh Johnson Service: CUSTOMS COMPLIANCE ANALYST / PA Responsible Attending: Dionte Chavez MD [...] She admits she has not see her sales special agent in over a year, but has had [...] Frailty Assessment: 3 (MANAGING WELL) Definitions from [place] Study of Health and Aging Clinical Frailty [...] hx of seizure disorder who presents from [facility] for further evaluation and management of an NSTEMI. She is s/p [facility] which demonstrated normal coronaries and an LVEDP [...] suspected coronary vasospasm Troponin I 1-->2 at [facility] Troponin T's 0.19, 0.20 Chest pain [...] Progress Note Patient Name: Thanh Johnson Service: CUSTOMS COMPLIANCE ANALYST / PA Responsible Attending: Dionte Chavez MD [...] Continuous Infusions: ??? heparin (porcine) 750 Units/hr (03/01/181814) PRN Meds:nitroGLYcerin, acetaminophen, heparin (porcine) AND heparin [...] hx of seizure disorder who presents from [facility] for further evaluation and management of an NSTEMI. She will have an echo, and is NPO for left heart cath today. ?? Plan: NSTEMI Troponin I 1-->2 at [facility] Troponin T's 0.19, 0.20 Chest pain [...] anterior leads Check echo NPO today for [facility] Consent in chart Acute CHF, diastolic [...] hx of seizure disorder who presents from [facility] for further evaluation and management of [...] Social History Narrative Apr 2012: lives in [place], [place] (N of [facility]) partner: Apollo Dumont (d. 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) tobacco: D/C'd ~ 2005 p ~ [...] 118 Trig 36 HgbA1c 5.8% ASSESSMENT: Ms. Thnah Johnson is a 67 year old female with no know hx of CAD, but with PMH significant for HTN, former smoker (1-2 PPD, quit 11 years ago), COPD- non O2 dependent, lupus, and with hx of seizure disorder who presents from [facility] for further evaluation and management of an NSTEMI. TREATMENT PLAN: NSTEMI Troponin I 1-->2 at [facility] Cycle troponin T's Chest pain free [...] MD Provider: Cydney Ziegler APRN Provider #: [id number] 03/01/2018 STAFF ADDENDUM Patient interviewed and examined. [...] Review Outcome: Ongoing (Interventions Implemented as Appropriate) 03/02/18185403/02/181939 Coping/Psychosocial Plan Of Care Reviewed With -- [...] Control Outcome: Ongoing (Interventions Implemented as Appropriate) 03/02/181939 Safety Interventions Isolation Precautions standard precautions maintained [...] CPG). Outcome: Ongoing (Interventions Implemented as Appropriate) 03/02/181939 Cardiac Cath/Percutaneous Coronary Intervention Problems Assessed (Cardiac Catheterization) all Problems Present (Cardiac Catheterization) none * Plan of Care - Delmy Ferrari RN - 03/02/2018 7:07 PM EDT Problem: Patient Care Overview Goal: Plan of Care Review Outcome: Ongoing (Interventions Implemented as Appropriate) 03/02/18 8517 Coping/Psychosocial Plan Of Care Reviewed With patient;daughter;son [...] Operative Note Patient Name: Thanh Johnson : [id number] MR#: [id number] Case Date: 03/02/2018 Lead Slot Technician: * Pepper Menendez MD - Primary * Felipe Felipe MD - Fellow-Interventional Preliminary Cardiac Catheterization Procedure Note: Procedure(s) performed: Coronary Angiography Baseline Frailty Assessment: 3 (MANAGING WELL) Definitions from [place] Study of Health and Aging Clinical Frailty [...] Full report to follow. PEPPER MENENDEZ MD tool coordinator Pager [phone] * Plan of Care - [...] further details. Cydney Ziegler APRN 03/02/2018 Pager [phone] * Plan of Zoie - Pepper Olivo RN - 03/02/2018 2:39 AM EDT Problem: Patient Care Overview Goal: Plan of Care Review Outcome: Ongoing (Interventions Implemented as Appropriate) 03/01/18200903/02/18234 Coping/Psychosocial Plan Of Care Reviewed With patient;son;daughter [...] Assessment Outcome: Ongoing (Interventions Implemented as Appropriate) 07/28/18 0235 Discharge Needs Assessment Concerns To Be [...] Review Outcome: Ongoing (Interventions Implemented as Appropriate) 03/01/18 183 Coping/Psychosocial Plan Of Care Reviewed With patient;sibling Plan of Care Review Progress no change OUTCOME EVALUATION NOTE: OUTCOME SUMMARY: SR/SB, HR 50-60. No report of CP or SOB. Heparin gtt continued. Son by to see. PLAN MOVING FORWARD: Echo, farm laborer, trend cardiac enzymes INDIVIDUALIZED FALL PREVENTION [...] 2:00 PM EDT Office Visit Cardiology at [address] [address] Estiven Raza MD [facility] [place] [address] Scheduled Referrals Name Type Priority Associated Diagnoses Order Schedule Referral to Pulmonology Outpatient Referral Routine Other emphysema Ordered: 03/03/2018 Referral to Cardiac Rehab Outpatient Referral Routine NSTEMI (non-ST elevated myocardial infarction) Ordered: 03/03/2018 documented as of this encounter Procedures Procedure Name Priority Date/Time Associated Diagnosis Comments SAFETY SITTER SCAN 03/04/2018 12:00 AM EDT EKG 12-LEAD Routine 03/03/2018 8:08 AM EDT Non-ST elevation myocardial infarction (NSTEMI) BMP W/FASTING GLUCOSE Routine 03/03/2018 5:05 AM EDT HEMOGRAM Routine 03/03/2018 5:05 AM EDT DIFFERENTIAL, AUTOMATED Routine 03/03/20 18 5:05 AM EDT CBC (WITH DIFF) Routine [...] 03/02/2018 12: 00 AM EDT CARDIAC ENZYMES ([facility]) STAT 03/01/2018 8:07 PM EDT HEPARIN (UNFRACTIONATED) LEVEL STAT 03/01/2018 5:37 PM EDT HEMOGRAM Routine 03/01/2018 5:37 PM EDT DIFFERENTIAL, AUTOMATED Routine 03/01/20 18 5:37 PM EDT CBC (WITH DIFF) Routine 03/01/2018 5:37 PM EDT HEMOGRAM STAT 03/01/2018 2:16 PM EDT DIFFERENTIAL, AUTOMATED STAT 03/01/20 18 2:16 PM EDT CARDIAC ENZYMES ([facility]) STAT 03/01/2018 2:16 PM EDT APTT STAT 03/01/2018 2:16 PM EDT PROTHROMBIN TIME STAT 03/01/2018 2:16 PM EDT CBC (WITH DIFF) STAT 03/01/2018 2:16 PM EDT PRO-BRAIN NATRIURETIC PEPTIDE STAT 03/01/2018 2:16 PM EDT BASIC METABOLIC PANEL STAT 03/01/2018 2:16 PM EDT EKG 12-LEAD Routine 03/01/2018 1:59 PM EDT Non-ST elevation myocardial infarction (NSTEMI) documented in this encounter Results * SCAN DOC: SAFETY SITTER (03/04/2018 12:00 AM EDT) Anatomical Region Laterality [...] (Bezet) 450 ms MUSE SYSTEM Calculated P [place] 80 degrees MUSE SYSTEM Calculated R [place] 66 degrees MUSE SYSTEM Calculated T [place] 87 degrees MUSE SYSTEM INTERPRETATION Normal sinus rhythm Nonspecific T wave abnormality Abnormal ECG When compared with ECG of 02-MAR-2018 07:45, Nonspecific T wave abnormality has replaced inverted T waves in Anterior leads Confirmed by MD Jovany, Francisco ([id number]) on 03/03/2018 8:11:21 PM MUSE SYSTEM 03/03/2018 8:08 AM EDT 03/03/2018 8:11 PM EDT Cydney J King SUDHAKAR ECG ORDERABLES MUSE SYSTEM * (ABNORMAL) Differential, Automated (03/03/2018 5:05 AM EDT) Neutrophil % 66.3 % [facility] Neutrophil Absolute 5.99 1.70 - 6.10 x10(3)/mc L [facility] Lymph % 18.2 % [facility] Lymphocytes Abs 1.6 0.9 - 3.2 x10(3)/mc L [facility] Monocyte % 11.5 % [facility] Monocyte Abs 1.0(H) 0.3 - 0.9 x10(3)/mc L [facility] Eos % 3.0 % [facility] Eosinophils Abs 0.3 0.0 - 0.4 x10(3)/mc L [facility] Basophil % 0.8 % [facility] Baso Absolute 0.1 0.0 - 0.1 x10(3)/mc L [facility] Immature Gran % 0.20 % [facility] Comment: Immature granulocytes(IG's)percentage and absolute count will include metamyelocytes, myelocytes, and promyelocytes. Blood smears from CBCs yielding IG's will be scanned manually for concordance. If this scan disagrees with the automated IG or if promyelocytes are noted, a manual differential will be performed. Immature Gran Absolute 0.02 0.00 - 0.04 x10(3)/mc L [facility] Blood specimen (specimen) 03/03/2018 5:05 AM EDT 03/03/2018 5:20 AM EDT Narrative Resulting Agency Comment Spec In Lab Cydney Ziegler APRN HEMATOLOGY ORDERABLE S [facility] [place] [address] * Hemogram (03/03/2018 5:05 AM EDT) White Blood Cell 9.0 4.0 - 9.5 x10(3)/[facility] Red Blood Cell 4.53 4.00 - 5.21 x10(6)/[facility] Hemoglobin 13.6 11.7 - 15.5 gm/dL [facility] Hematocrit 40.6 35.7 - 45.8 % [facility] Mean Cell Volume 89.6 82.6 - 94.4 fL [facility] Mean Cell Hemoglobin 30.0 27.1 - 32.0 pg [facility] Mean Cell Hemoglobin Concentration 33.5 31.7 - 35.0 gm/dL [facility] Platelet 218 145 - 357 x10(3)/[facility] RDW Standard Deviation 41.4 37.0 - 46.0 [facility] RDW coefficient of variation 12.6 11.5 - 14.1 % [facility] Mean Platelet Volume 11.6 7.6 - 12.9 [facility] NRBC% auto 0.0 % [facility] NRBC Absolute 0.000 0.000 - 0.000 x10(3)/mcL [facility] Blood specimen (specimen) 03/03/2018 5:05 AM EDT 03/03/2018 5:20 AM EDT Narrative Resulting Agency Comment Spec In Lab Cydney Ziegler SUDHAKAR HEMATOLOGY ORDERABLE S [facility] [place] [address] * (ABNORMAL) BMP w/fasting Glucose (03/03/2018 5:05 AM EDT) Glucose Fasting 103(H) 65 - 99 mg/dL [facility] Comment: ?Fasting* Glucose Interpretive Criteria Normal [...] of Diabetes Mellitus, Position Statement from the [place] [employer]. ??Diabetes Care, Volume 33, Supplement 1, Aug 2009 Blood Urea Nitrogen 16 8 - 18 mg/dL [facility] Creatinine 0.96 0.70 - 1.20 mg/dL [facility] Sodium 140 135 - 145 mmol/L [facility] Potassium 4.3 3.5 - 5.0 mmol/L [facility] Comment: Please note: ??Patients with WBC >100,000 may have falsely elevated Potassium levels. ??For accurate Potassium quantification in these patients send serum separator tube (gold top) for subsequent determinations. ??Contact the Clinical Chemistry Laboratory if there are any questions. Chloride 100 98 - 107 mmol/L [facility] Carbon Dioxide 27 22 - 31 mmol/L [facility] Anion Gap 13 5 - 15 mmol/L [facility] Calcium 8.7 8.5 - 10.5 mg/dL [facility] Est Glomerular Filtration Rate 60 >=60 mL/min/1. 73 m?? [facility] Comment: The eGFR was calculated using the CKD-EPI equation. As with all creatinine based estimates of kidney function, eGFR values calculated with the CKD-EPI equation are not accurate in patients with acute kidney failure, extremes of body mass or the acutely ill. http://hdtMEDIA/Sambazonnkdep http://hdtMEDIA/[facility]kf eGFR 70 >=60 mL/min/1. 73 m?? [facility] Comment: The eGFR was calculated using the CKD-EPI equation. As with all creatinine based estimates of kidney function, eGFR values calculated with the CKD-EPI equation are not accurate in patients with acute kidney failure, extremes of body mass or the acutely ill. http://hdtMEDIA/Sambazonnkdep http://hdtMEDIA/[facility]kf Blood specimen (specimen) 03/03/2018 5:05 AM EDT 03/03/2018 5:20 AM EDT Narrative Resulting Agency Comment Spec In Lab Cydney Ziegler APRN CHEMISTRY ORDERABLES Performing Organization Address City/State/[facility] Co de Phone Number [facility] [place] [address] * ECHO COMPLETE (03/02/2018 3:44 PM EDT) Anatomical Region Laterality Modality Other 03/02/2018 Narrative 03/02/2018 9:08 PM EDT Procedure: ?Transthoracic Echocardiogram Patient: ?JOHNSON THANH B ? (Age): 1950(67y) Med Rec#: ? [id number] ?Sex: ?F ? Site Loc: ? [facility] ?Ht / Wt: ??150(cm)/68(kg) Pt. Loc: ?Adult Floor ? BSA: ?1.63 Study Date: ?? 03/02/2018 ?Pt. Type: Outpatient Tape: ? Referring: PAYTON Reading: Saul Leon ([id number]) Oil Boiler: Naeem Acosta [facility] Diagnosis: *Non-ST elevation (NSTEMI) myocardial infarction (I21.4) [...] E-wave Vmax ?1.1 ?m/sec ? MV deceleration [id number] ?msec ? MV A-wave Vmax ?1.1 ?m/sec [...] ? Mid-Inferior ?Normal ? Mid-Inferoseptal ?Normal ? [address] [place]-Septal ? Normal ? [address] [place]-Anterior ? Normal ? [address] [place]-Lateral ?Normal ? [address] [place]-Inferior ? Normal ? [address] [place]-Tip ?Normal ? This report has been electronically signed by: Saul Leon M.D. ? 03/02/2018 21:08:36 Images reviewed and interpretation verified [facility] Cardiac Ultrasound Laboratory Procedure Note Saul Leon MD - 03/02/2018 Procedure: Transthoracic Echocardiogram Patient: ALEX Trevino DOB(Age): 1950(67y) Med Rec#: [id number] Sex: F Site Loc: [facility] Ht / Wt: 150(cm)/68(kg) Pt. Loc: Adult Floor BSA: 1.63 Study Date: 03/02/2018 Pt. Type: Outpatient Tape: Referring: LAALECIAYMICHAELJ Reading: Saul Leon ([id number]) Oil Boiler: Naeem Acosta RD Diagnosis: *Non-ST elevation (NSTEMI) myocardial infarction (I21.4) [...] MV E-wave Vmax 1.1 m/sec MV deceleration [id number] msec MV A-wave Vmax 1.1 m/sec MV [...] Normal Mid-Posterolateral Normal Mid-Inferior Normal Mid-Inferoseptal Normal [address] [place]-Septal Normal [address] [place]-Anterior Normal [address] [place]-Lateral Normal [address] [place]-Inferior Normal [address] [place]-Tip Normal This report has been electronically signed by: Saul Leon M.D. 03/02/2018 21:08:36 Images reviewed and interpretation verified [facility] Cardiac Ultrasound Laboratory Cydney Ziegler APRN ECHO ORDERABLES * CARDIAC CATHETERIZATION (03/02/2018 12:00 PM EDT) Anatomical Region Laterality Modality Other Narrative 03/04/2018 7:44 AM EDT ?[facility] ? Cardiac Catheterization/Intervention Report ? Patient Name: Thanh Johnson. ? Procedure Date: 03/02/2018 ? A #: [id number] ? Primary Physician: Menendez, Pepper V ? Case #: [id number] ? File Name: [id number] ? Catheterization Order Number: [id number] ? [facility] ? Final Report [place], [place] ? Patient Name: ? Thanh B. Johnson ? ID#: ?[id number] ? : ?1943 ? Procedure Date: ? March 02, 2018 ?Case #: ? [id number] ? Room: ? 5 ? Case Physician: ? Pepper Menendez M.D. ? Start: ?11:05 ?Fellow: ? Felipe Felipe M.D. ?Admission: ??03/01/2018 ? Referring ? [...] patient presented with: non-STEMI (w/i 7 days). [place] ?Cardiovascular Society angina class was IV. No [...] Procedure Note Pepper Menendez MD - 04/01/2018 [facility] Cardiac Catheterization/Intervention Report Patient Name: Alex Thanh B. Procedure Date: 03/02/2018 A #: [id number] Primary Physician: Pepper Menendez V Case #: File Name: [id number] Catheterization Order Number: [id number] [facility] FinalReport [place], [place] Patient Name: Thanh Johnson ID#:[id number] :1943 Procedure Date: March 02, 2018 Case #: [id number] Room: 5 Case Physician: Pepper Menendez M.D. [...] patient presented with: non-STEMI (w/i 7 days). [place] Cardiovascular Society angina class was IV. No [...] (Bezet) 491 ms MUSE SYSTEM Calculated P [place] 73 degrees MUSE SYSTEM Calculated R [place] 66 degrees MUSE SYSTEM Calculated T [place] 102 degrees MUSE SYSTEM INTERPRETATION Normal sinus rhythm T wave abnormality, consider anterior ischemia Prolonged QT Abnormal ECG When compared with ECG of 01-MAR-2018 13:59, T wave inversion now evident in Anterior leads Confirmed by MD Leon Timothy ([id number]) on 03/02/2018 2:09:03 PM MUSE SYSTEM 03/02/2018 7:45 AM EDT 03/02/2018 2:09 PM EDT Cydney Ziegler APRN ECG ORDERABLES Performing Organization Address [facility] Co de Phone Number MUSE SYSTEM * Potassium (03/02/2018 6:33 AM EDT) Potassium 3.5 3.5 - 5.0 mmol/L [facility] Comment: Please note: ??Patients with [...] Chavez MD CHEMISTRY ORDERABLES Performing Organization Address [facility] de Phone Number [facility] [place] [address] * Heparin (unfractionated) Level (03/02/2018 6:33 AM EDT) UF Heparin 0.58 IU/mL [facility] Comment: Guidelines for therapeutic unfractionated heparin [...] Lab Dionte Chavez MD HEMATOLOGY ORDERABLE S [facility] [place] [address] * (ABNORMAL) Differential, Automated (03/02/2018 3:56 AM EDT) Neutrophil % 66.8 % [facility] Neutrophil Absolute 8.73(H) 1.70 - 6.10 x10(3)/ L [facility] Lymph % 21.5 % [facility] Lymphocytes Abs 2.8 0.9 - 3.2 x10(3)/ L [facility] Monocyte % 9.7 % [facility] Monocyte Abs 1.3(H) 0.3 - 0.9 x10(3)/ L [facility] Eos % 0.8 % [facility] Eosinophils Abs 0.1 0.0 - 0.4 x10(3)/[facility]OR[facility]ORY Basophil % 0.7 % [facility] Baso Absolute 0.1 0.0 - 0.1 x10(3)/ L [facility] Immature Gran % 0.50 % [facility] Comment: Immature granulocytes(IG's)percentage and absolute count will include metamyelocytes, myelocytes, and promyelocytes. Blood smears from CBCs yielding IG's will be scanned manually for concordance. If this scan disagrees with the automated IG or if promyelocytes are noted, a manual differential will be performed. Immature Gran Absolute 0.06(H) 0.00 - 0.04 x10(3)/ L [facility] Blood specimen (specimen) 03/02/2018 3:56 AM EDT 03/02/2018 4:34 AM EDT Narrative Resulting Agency Comment Spec In Lab Cydney Ziegler APRN HEMATOLOGY ORDERABLE S [facility] [place] [address] * (ABNORMAL) Hemogram (03/02/2018 3:56 AM EDT) [facility] White Blood Cell 13.0(H) 4.0 - 9.5 x10(3)/[facility] LABORAT[facility] Red Blood Cell 4.59 4.00 - 5.21 x10(6)/[facility] Hemoglobin 13.7 11.7 - 15.5 gm/dL [facility] Hematocrit 40.6 35.7 - 45.8 % [facility] Mean Cell Volume 88.5 82.6 - 94.4 [facility] Mean Cell Hemoglobin 29.8 27.1 - 32.0 pg [facility] Mean Cell Hemoglobin Concentration 33.7 31.7 - 35.0 gm/dL [facility] Platelet 238 145 - 357 x10(3)/[facility] LABORAT[facility] RDW Standard Deviation 39.8 37.0 - 46.0 [facility] RDW coefficient of variation 12.4 11.5 - 14.1 % [facility] Mean Platelet Volume 11.4 7.6 - 12.9 [facility] NRBC% auto 0.0 % [facility] NRBC Absolute 0.000 0.000 - 0.000 x10(3)/[facility] Blood specimen (specimen) 03/02/2018 3:56 AM EDT 03/02/2018 4:34 AM EDT Narrative Resulting Agency Comment Spec In Lab Cydney Ziegler APRN HEMATOLOGY ORDERABLE S [facility] [place] [address] * (ABNORMAL) BMP w/fasting Glucose (03/02/2018 3:56 AM EDT) Glucose Fasting 100(H) 65 - 99 mg/dL [facility] Comment: ?Fasting* Glucose Interpretive Criteria Normal [...] of Diabetes Mellitus, Position Statement from the [place] [employer]. ??Diabetes Care, Volume 33, Supplement 1, Aug 2009 Blood Urea Nitrogen 23(H) 8 - 18 mg/dL [facility] Creatinine 0.93 0.70 - 1.20 mg/dL [facility] Sodium 141 135 - 145 mmol/L [facility] Potassium Not Perf 3.5 - 5.0 [facility] Comment: Unable to quantitate due to sample hemolysis. ??Sample redraw suggested. Called by: royer, Read back by: lizbeth Date/Time:03/02/18 05:37. Please note: ??Patients with WBC >100,000 may have falsely elevated Potassium levels. ??For accurate Potassium quantification in these patients send serum separator tube (gold top) for subsequent determinations. ??Contact the Clinical Chemistry Laboratory if there are any questions. Chloride 98 98 - 107 mmol/L [facility] Carbon Dioxide 25 22 - 31 mmol/L [facility] Anion Gap 18(H) 5 - 15 mmol/L [facility] Calcium 8.7 8.5 - 10.5 mg/dL [facility] Est Glomerular Filtration Rate 63 >=60 mL/min/1. 73 m?? [facility] Comment: The eGFR was calculated using the CKD-EPI equation. As with all creatinine based estimates of kidney function, eGFR values calculated with the CKD-EPI equation are not accurate in patients with acute kidney failure, extremes of body mass or the acutely ill. [email or web address] [email or web address] TALIHINAnkf eGFR 73 >=60 mL/min/1. 73 m?? [facility] Comment: The eGFR was calculated using the CKD-EPI equation. As with all creatinine based estimates of kidney function, eGFR values calculated with the CKD-EPI equation are not accurate in patients with acute kidney failure, extremes of body mass or the acutely ill. [email or web address] TALIHINAnkf Blood specimen (specimen) 03/02/2018 3:56 AM EDT 03/02/2018 4:34 AM EDT Narrative Resulting Agency Comment Spec In Lab Cydney Ziegler APRN CHEMISTRY ORDERABLES Performing Organization Address [facility] Co de Phone Number [facility] [place] [address] * (ABNORMAL) TSH (03/02/2018 3:56 AM EDT) Thyroid Stimulating Hormone 4.73(H) 0.27 - 4.20 mlU/ML [facility] Blood specimen (specimen) 03/02/2018 3:56 AM EDT 03/02/2018 4:34 AM EDT Narrative Resulting Agency Comment Spec In Lab Cydney Pantoja Toney [employer] CHEMISTRY ORDERABLES Performing Organization Address [facility]/ZIP Co de Phone Number [facility] [place] [address] * Heparin (unfractionated) Level (03/02/2018 12:24 AM EDT) UF Heparin 0.67 IU/mL [facility] Comment: Guidelines for therapeutic unfractionated heparin [...] MD HEMATOLOGY ORDERABLE S Performing Organization Address City/State/[facility] Co de Phone Number [facility] [place] [address] * SCAN DOC: CARDIAC CATH (03/02/2018 12:00 AM EDT) Anatomical Region Laterality Modality Cardiac Other Narrative 03/02/2018 12:00 AM EDT Ordered by an unspecified provider. Scanning Provider MEDIA MGR SCAN EXT O RDR/RSLT * (ABNORMAL) Cardiac Enzymes (LEB/CGP) (03/01/2018 8:07 PM EDT) Troponin-T 0.20(H) 0.00 - 0.00 ng/mL [facility] Comment: The 99th percentile for Troponin T is less than 0.01 ng/mL, any detectable cTnT concentration using this assay should be considered elevated. According to the third universal definition of myocardial infarction the following criteria with a clinical presentation consistent with acute myocardial ischemia meets the diagnosis for a myocardial infarction ([place]). Detection of a rise and/or fall of cTnT, with at least one value greater than the 99th percentile (> or = 0.01) and with at least one of the following ?? Symptoms of ischemia ?? New or presumed new significant DS-nzcsogg-H wave (ST-T) changes or new left bundle [...] additional sample may be indicated. Reference: Third Austin Definition of Myocardial Infarction. Journal of the [place] [employer] 2012;60:1581-98 Creatine Kinase 282(H) 0 - 160 unit/L [facility] Blood specimen (specimen) 03/01/2018 8:07 PM EDT 03/01/2018 8:21 PM EDT Narrative Resulting Agency Comment Spec In Lab Cydney Ziegler APRN CHEMISTRY ORDERABLES [facility] [place] [address] * (ABNORMAL) Differential, Automated (03/01/2018 5:37 PM EDT) Neutrophil % 76.3 % [facility] Neutrophil Absolute 12.15(H) 1.70 - 6.10 x10(3)/mc L [facility] Lymph % 15.3 % [facility] Lymphocytes Abs 2.4 0.9 - 3.2 x10(3)/mc L [facility] Monocyte % 7.6 % [facility] Monocyte Abs 1.2(H) 0.3 - 0.9 x10(3)/mc L [facility] Eos % 0.1 % [facility] Eosinophils Abs 0.0 0.0 - 0.4 x10(3)/mc L [facility] Basophil % 0.3 % [facility] Baso Absolute 0.0 0.0 - 0.1 x10(3)/mc L [facility] Immature Gran % 0.40 % [facility] Comment: Immature granulocytes(IG's)percentage and absolute count will include metamyelocytes, myelocytes, and promyelocytes. Blood smears from CBCs yielding IG's will be scanned manually for concordance. If this scan disagrees with the automated IG or if promyelocytes are noted, a manual differential will be performed. Immature Gran Absolute 0.06(H) 0.00 - 0.04 x10(3)/mc L [facility] Blood specimen (specimen) 03/01/2018 5:37 PM EDT 03/01/2018 5:45 PM EDT Narrative Resulting Agency Comment Spec In Lab Cydney Ziegler APRN HEMATOLOGY ORDERABLE S [facility] [place] [address] * (ABNORMAL) Hemogram (03/01/2018 5:37 PM EDT) White Blood Cell 15.9(H) 4.0 - 9.5 x10(3)/mc L [facility] Red Blood Cell 4.98 4.00 - 5.21 x10(6)/mc L [facility] Hemoglobin 14.6 11.7 - 15.5 gm/dL [facility] Hematocrit 44.1 35.7 - 45.8 % [facility] Mean Cell Volume 88.6 82.6 - 94.4 fL [facility] Mean Cell Hemoglobin 29.3 27.1 - 32.0 pg [facility] Mean Cell Hemoglobin Concentration 33.1 31.7 - 35.0 gm/dL [facility] Platelet 261 145 - 357 x10(3)/mc L [facility] RDW Standard Deviation 39.9 37.0 - 46.0 fL [facility] RDW coefficient of variation 12.2 11.5 - 14.1 % [facility] Mean Platelet Volume 11.3 7.6 - 12.9 fL [facility] NRBC% auto 0.0 % [facility] NRBC Absolute 0.000 0.000 - 0.000 x10(3)/mc L [facility] Blood specimen (specimen) 03/01/2018 5:37 PM EDT 03/01/2018 5:45 PM EDT Narrative Resulting Agency Comment Spec In Lab Cydney Ziegler [employer] HEMATOLOGY ORDERABLE S Performing Organization Address [facility] de Phone Number [facility] [place] [address] * Heparin (unfractionated) Level (03/01/2018 5:37 PM EDT) UF Heparin 0.82 IU/mL [facility] Comment: Guidelines for therapeutic unfractionated heparin [...] Agency Comment Spec In Lab Cydney Ziegler [employer] HEMATOLOGY ORDERABLE S Performing Organization Address [facility] de Phone Number [facility] [place] [address] * (ABNORMAL) Differential, Automated (03/01/2018 2:16 PM EDT) Neutrophil % 80.4 % [facility] Neutrophil Absolute 12.27(H) 1.70 - 6.10 x10(3)/[facility] LABORAT[facility] Lymph % 10.6 % [facility] Lymphocytes Abs 1.6 0.9 - 3.2 x10(3)/[facility] LABORATORY Monocyte % 8.1 % [facility] Monocyte Abs 1.2(H) 0.3 - 0.9 x10(3)/[facility] LAB[facility]AT[facility] Eos % 0.1 % [facility] Eosinophils Abs 0.0 0.0 - 0.4 x10(3)/[facility] LABORATORY Basophil % 0.2 % [facility] Baso Absolute 0.0 0.0 - 0.1 x10(3)/[facility] LAB[facility]ATORY Immature Gran % 0.60 % [facility] Comment: Immature granulocytes(IG's)percentage and absolute count will include metamyelocytes, myelocytes, and promyelocytes. Blood smears from CBCs yielding IG's will be scanned manually for concordance. If this scan disagrees with the automated IG or if promyelocytes are noted, a manual differential will be performed. Immature Gran Absolute 0.09(H) 0.00 - 0.04 x10(3)/[facility] LABORATORY Blood specimen (specimen) 03/01/2018 2:16 PM EDT 03/01/2018 2:26 PM EDT Narrative Resulting Agency Comment Spec In Lab Cydney Ziegler APRN HEMATOLOGY ORDERABLE S [facility] [place] [address] * (ABNORMAL) Hemogram (03/01/2018 2:16 PM EDT) White Blood Cell 15.2(H) 4.0 - 9.5 x10(3)/[facility] LAB[facility]AT[facility] Red Blood Cell 4.70 4.00 - 5.21 x10(6)/mc L [facility] Hemoglobin 14.1 11.7 - 15.5 gm/dL [facility] Hematocrit 41.4 35.7 - 45.8 % [facility] Mean Cell Volume 88.1 82.6 - 94.4 fL [facility] Mean Cell Hemoglobin 30.0 27.1 - 32.0 pg [facility] Mean Cell Hemoglobin Concentration 34.1 31.7 - 35.0 gm/dL [facility] Platelet 254 145 - 357 x10(3)/mc L [facility] RDW Standard Deviation 39.3 37.0 - 46.0 fL [facility] RDW coefficient of variation 12.2 11.5 - 14.1 % [facility] Mean Platelet Volume 11.3 7.6 - 12.9 fL [facility] NRBC% auto 0.0 % [facility] NRBC Absolute 0.000 0.000 - 0.000 x10(3)/mc L [facility] Blood specimen (specimen) 03/01/2018 2:16 PM EDT 03/01/2018 2:26 PM EDT Narrative Resulting Agency Comment Spec In Lab Cydney Ziegler APRN HEMATOLOGY ORDERABLE S [facility] [place] [address] * (ABNORMAL) Cardiac Enzymes (LEB/CGP) (03/01/2018 2:16 PM EDT) Troponin-T 0.19(H) 0.00 - 0.00 ng/mL [facility] Comment: The 99th percentile for Troponin T is less than 0.01 ng/mL, any detectable cTnT concentration using this assay should be considered elevated. According to the third universal definition of myocardial infarction the following criteria with a clinical presentation consistent with acute myocardial ischemia meets the diagnosis for a myocardial infarction ([place]). Detection of a rise and/or fall of cTnT, with at least one value greater than the 99th percentile (> or = 0.01) and with at least one of the following ?? Symptoms of ischemia ?? New or presumed new significant VJ-fmgegsr-R wave (ST-T) changes or new left bundle [...] additional sample may be indicated. Reference: Third Austin Definition of Myocardial Infarction. Journal of the [place] [employer] 2012;60:1581-98 Creatine Kinase 219(H) 0 - 160 unit/L [facility] Blood specimen (specimen) 03/01/2018 2:16 PM EDT 03/01/2018 2:26 PM EDT Narrative Resulting Agency Comment Spec In Lab Cydney Ziegler APRN CHEMISTRY ORDERABLES Performing Organization Address [facility]/ZIP Co de Phone Number [facility] [place] [address] * (ABNORMAL) pro-Brain Natriuretic Peptide (03/01/2018 2:16 PM EDT) NT-proBNP 3,796(H) <=125 pg/mL [facility] Blood specimen (specimen) 03/01/2018 2:16 PM EDT 03/01/2018 2:26 PM EDT Narrative Resulting Agency Comment Spec In Lab Cydney Ziegler APRN CHEMISTRY ORDERABLES Performing Organization Address [facility]/ZIP Co de Phone Number [facility] [place] [address] * (ABNORMAL) APTT (03/01/2018 2:16 PM EDT) Partial Thromboplastin Time 84(H) 25 - 37 sec [facility] Comment: The PTT is NOT appropriate for heparin monitoring. Use the Anti-Xa level for heparin monitoring (HEP UFH) or LMWH monitoring (HEP LMW). A PTT less than 37 seconds generally indicates adequate hemostasis. Blood specimen (specimen) 03/01/2018 2:16 PM EDT 03/01/2018 2:26 PM EDT Narrative Resulting Agency Comment Spec In Lab Cydney Pantoja [facility] HEMATOLOGY ORDERABLE S Performing Organization Address [facility] de Phone Number [facility] [place] [address] * Prothrombin Time (03/01/2018 2:16 PM EDT) Prothrombin Time 11.6 9.4 - 12.5 sec [facility] International Normalization Ratio 1.0 [facility] Comment: An INR <2.0 indicates adequate [...] Resulting Agency Comment Spec In Lab Cydney Pantoja [facility] HEMATOLOGY ORDERABLE S Performing Organization Address [facility] de Phone Number [facility] [place] [address] * Basic Metabolic Panel (non-fasting) (03/01/2018 2:16 PM EDT) Glucose 105 65 - 199 mg/dL [facility] Comment:Diabetes: >=200 mg/d L plus symptoms Blood Urea Nitrogen 15 8 - 18 mg/dL [facility] Creatinine 0.79 0.70 - 1.20 mg/dL [facility] Sodium 141 135 - 145 mmol/L [facility] Potassium 4.0 3.5 - 5.0 mmol/L [facility] Comment: Please note: ??Patients with WBC >100,000 may have falsely elevated Potassium levels. ??For accurate Potassium quantification in these patients send serum separator tube (gold top) for subsequent determinations. ??Contact the Clinical Chemistry Laboratory if there are any questions. Chloride 99 98 - 107 mmol/L [facility] Carbon Dioxide 27 22 - 31 mmol/L [facility] Anion Gap 15 5 - 15 mmol/L [facility] Calcium 9.1 8.5 - 10.5 mg/dL [facility] Est Glomerular Filtration Rate 76 >=60 mL/min/1. 73 m?? [facility] Comment: The eGFR was calculated using the CKD-EPI equation. As with all creatinine based estimates of kidney function, eGFR values calculated with the CKD-EPI equation are not accurate in patients with acute kidney failure, extremes of body mass or the acutely ill. [email or web address] [email or web address] eGFR 89 >=60 mL/min/1. 73 m?? [facility] Comment: The eGFR was calculated using the CKD-EPI equation. As with all creatinine based estimates of kidney function, eGFR values calculated with the CKD-EPI equation are not accurate in patients with acute kidney failure, extremes of body mass or the acutely ill. [email or web address] [email or web address] Blood specimen (specimen) 03/01/2018 2:16 PM EDT 03/01/2018 2:26 PM EDT Narrative Resulting Agency Comment Spec In Lab Cydney Ziegler APRN CHEMISTRY ORDERABLES [facility] [place] [address] * EKG 12 Lead (03/01/2018 1:59 PM EDT) Ventricular rate 50 BPM MUSE SYSTEM Atrial Rate 50 BPM MUSE SYSTEM P-R Interval 124 ms MUSE SYSTEM QRS Duration 70 ms MUSE SYSTEM Q-T Interval 522 ms MUSE SYSTEM QTC Calculated (Bezet) 475 ms MUSE SYSTEM Calculated P [place] 75 degrees MUSE SYSTEM Calculated R [place] 66 degrees MUSE SYSTEM Calculated T [place] 85 degrees MUSE SYSTEM INTERPRETATION Sinus bradycardia Otherwise normal ECG When compared with ECG of 25-FEB-2007 15:41, QT has shortened Confirmed by MD Bloom Megan ([id number]) on 03/01/2018 6:19:09 PM MUSE SYSTEM 03/01/2018 1:59 PM EDT 03/01/2018 6:19 PM EDT Dionte Chavez MD ECG ORDERABLES MUSE SYSTEM documented in this encounter Visit Diagnoses Not on filedocumented in this encounter Admitting Diagnoses Diagnosis NSTEMI (non-ST elevated myocardial infarction) Acute myocardial infarction, subendocardial infarction, episode of care unspecified documented in this encounter Administered Medications Inactive Administered Medications - up to 3 most recent administrations Medication Order MAR Action Action Date Dose Rate Site amLODIPine (NORVASC) tablet 2.5 mg 2.5 mg, Oral, DAILY, First dose on 03/03/18 at 0900, Until Discontinued, Routine Given 03/03/2018 8:33 AM EDT 2.5 mg aspirin chewable tablet 81 mg 81 mg, Oral, DAILY, First dose on 03/02/18 at 0900, Until Discontinued, Routine Given 03/03/2018 [...] Given 03/02/2018 9:26 AM EDT 40 mg fentaNYL (PF) 50mcg/mL injection 25 mcg, Intravenous, Administer over 4 Hours, EVERY 30 MIN PRN, 4 doses, Starting on Sun03/02/18 at 1220, Until Sun03/03/18 at 1443, Pain, sheath removal, May repeat once while in Cath Recovery Unit, Cath (Recovery-Hospital Unit), Routine furosemide (LASIX) tablet 20 mg 20 mg, [...] Given 03/01/2018 8:52 PM EDT 600 mg hydroxychloroquine (PLAQUENIL) tablet 200 mg 200 mg, [...] midazolam (PF) (VERSED) 1 mg/mL multi-dose injection ONCE PRN, Starting on 03/02/18 at 1040, Until 03/02/18 at 1156, Cath (Intra-Procedure), Routine Given 03/02/2018 10:40 AM EDT 0.5 mg ondansetron (ZOFRAN) injection ONCE PRN, Starting on 03/02/18 at 1036, Until 03/02/18 at 1156, Cath (Intra-Procedure), Routine Given 03/02/2018 10:36 AM EDT 4 mg predniSONE (DELTASONE) tablet 40 mg 40 mg, [...] on Sun03/03/18 at 0900, Until Discontinued, Routine 0833 (Given - Provider: Helen Walters, MEKA) aspirin chewable tablet 81 mg 81 mg, Oral, DAILY, First dose on Sun03/02/18 at 0900, Until Discontinued, Routine 0925 (Given - Provider: Delmy Ferrari RN) 0832 (Given - Provider: Helen Walters, MEKA) atorvastatin (LIPITOR) tablet 80 mg 80 mg, Oral, EVERY EVENING, First dose on Sun03/01/18 at 1815, Until Discontinued, Routine 1819 (Given - Provider: Juilann Morrison RN) 1808 (Given - Provider: Delmy Ferrari RN) budesonide (PULMICORT) nebulizer suspension 250 mcg 250 mcg, Nebulization, DAILY, First dose on Sun03/01/18 at 1700, Until Discontinued, Routine 1700 (Not Given - Provider: Juliann Morrison RN - Reason: Patient/family refused) 0900 (Not Given - Provider: Delmy Ferrari RN - Reason: Patient/family refused) 0838 (Given - Provider: Helen Walters, MEKA) citalopram (CeleXA) tablet 40 mg 40 mg, Oral, DAILY, First dose on Sun03/02/18 at 0900, Until Discontinued, Routine 09 (Given - Provider: Delmy Ferrari, MEKA) 0832 (Given - Provider: Helen Walters, MEKA) clopidogrel (PLAVIX) tablet 75 mg (CANCELED) 75 mg, Oral, DAILY, First dose on Sun03/02/18 at 0900, Until Discontinued, Routine 09 (Given - Provider: Delmy Ferrari, MEKA) 0832 (Given - Provider: Helen Walters, MEKA) [...] on Sun03/02/18 at 0700, Until Discontinued, Routine 0637 (Given - Provider: [...] Provider: Delmy Ferrari RN - Reason: Patient/family refused)2019 (Given - Provider: Pepper lOivo RN) 0230 (Not Given - Provider: Pepper Olivo RN - Reason: Patient/family refused)0832 (Given - Provider: Helen Walters, MEKA) levothyroxine (SYNTHROID) tablet 50 mcg 50 mcg, Oral, EVERY MORNING, First dose on Sun03/02/18 at 0600, Until Discontinued, Routine 0637 (Given - Provider: Pepper Olivo RN) 0647 (Given - Provider: Pepper Olivo RN) lisinopril (PRINIVIL;ZESTRIL) tablet 2.5 mg 2.5 mg, Oral, DAILY, First dose on Sun03/02/18 at 0900, Until Discontinued, Routine 0926 (Given - Provider: Delmy Ferrari RN) 0832 (Given - Provider: Helen Walters, MEKA) metoprolol (LOPRESSOR) tablet 12.5 mg 12.5 mg, Oral, EVERY 12 HOURS SCHEDULED (2 times per day), First dose on Sun03/01/18 at 2100, Until Discontinued, Hold for SBP less than 90 or HR less than 50, Routine 2100 (Given - Provider: Pepper Olivo RN) 0926 (Given - Provider: Delmy Ferrari RN)2019 (Given - Provider: Pepper Olivo RN) 0832 (Given - Provider: Helen Walters, MEKA) potassium chloride (K-DUR/KLOR-CON) extended release tablet 40 mEq (COMPLETED) 40 mEq, Oral, EVERY 4 HOURS, 2 doses, First dose on Sun03/02/18 at 1000, Last dose on Sun03/02/18 at 1400, STAT 1000 (Given - Provider: Delmy Ferrari RN)1458 (Given - Provider: Delmy Ferrari, MEKA) predniSONE (DELTASONE) tablet 40 mg 40 mg, Oral, DAILY, 5 doses, First dose on Sun03/03/18 at 1000, Last dose on Sun03/07/18 at 0900, Routine 1053 (Given - Provider: Helen Walters, MEKA) Continuous Medication Order 03/01/2018 03/02/2018 03/03/2018 heparin [...] Morrison RN)1815 (Rate/Dose Change - Provider: Juliann Morrison, MEKA) PRN Medication Order 03/01/2018 03/02/2018 03/03/2018 acetaminophen (TYLENOL) tablet 650 mg 650 mg, Oral, EVERY 6 HOURS PRN, Starting on Sun03/01/18 at 1555, Until Sun03/03/18 at 1443, Pain, Headaches, Maximum dose of acetaminophen is 4000 mg from all sources in 24 hours., Routine albuterol (PROVENTIL) nebulizer solution 2.5 mg 2.5 mg, Nebulization, EVERY 4 HOURS PRN, Starting on Sun03/01/18 at 1555, Until 03/03/18 at 1443, Wheezing, Routine atropine injection 1 mg 1 mg, Intravenous, Administer over 4 Hours, EVERY 5 MIN PRN, 2 doses, Starting on 03/02/18 at 1220, Until 03/03/18 at 1443, Other, vasovagal episode, Call interventional MD., Cath (Recovery-Hospital Unit), Routine fentaNYL (PF) 50mcg/mL injection 25 mcg, Intravenous, Administer over 4 Hours, EVERY 30 MIN PRN, 4 doses, Starting on 03/02/18 at 1220, Until 03/03/18 at 1443, Pain, sheath removal, May repeat [...] Sublingual, EVERY 5 MIN PRN, Starting on 03/01/18 at 1555, Until 03/03/18 at 1443, Chest pain, May repeat every [...] PROTOCOL, Starting on Sun03/01/18 at 1555, Until 03/03/18 at 0955, Per Protocol, START ADJUSTMENT SCHEDULE 6 HOURS AFTER STARTING INFUSION Heparin UFH Level between 0.1 - 0.29 IU/mL: Bolus 2,000 units Heparin UFH Level less than 0.1 IU/mL: Bolus 4,000 units, Routine And heparin 25,000 units in dextrose 5% 500 mL infusion (CANCELED)Jump to med 0-5,000 Units/hr (0-100 mL/hr), Intravenous, CONTINUOUS, Starting on Sun03/01/18 at 1615, Until 03/03/18 at 0955, BEGIN infusion at 800 units [...] UA) documented in this encounter Care Teams Dictaphone Transcriber Relationship Specialty Start Date End Date John Diaz MD [address] [place] [address] PCP - General 12/22/14 07/18/21 documented as of this encounter
--- OUTSIDE RECORDS SUMMARY | 2024-05-02 13:59 | XMS_ITS | Encounter Summary ---
Author Organization [facility] Address [facility] [place] [address] Care Team Providers Care Acid Purifier Name Role Phone John Diaz MD Primary Care Provider [phone] Encounter Details Date Type Department Care Team (Late st Contact Info) Description 03/20/2018 [place] [address] Sam Monzon MD [facility] [address] Chronic obstructive pulmonary disease, unspecified COPD type [...] PM EDT Office Visit Cardiology at [address] [address] Estiven Raza MD [facility] [place] [address] documented as of this encounter Results * Pulmonary Function Testing (05/16/2018 2:46 PM EDT) Narrative Yasir Mac MD - 05/16/2018 2:46 PM EDT Yasir Mac MD ? 05/16/2018 ??2:46 PM Spirometry: FVC is normal FEV1 is decreased FEV1 / FVC ratio is decreased Lung Volumes: TLC is increased RV is increased ERV is normal FRC is increased RV/TLC is increased Diffusion: DLCO is decreased Oxygen Saturation: Oxygen saturation was 94% at rest, and was 89% after 375 feet of ambulation on room air. ?? Peak Inspiratory Flow Rate Testing: Low resistance setting: >120 L/min Medium resistance settin L/min High resistance settin L/min Interpretation: Spirometry is consistent with a moderate obstructive defect. Lung volumes demonstrate hyperinflation. There is a moderate reduction in diffusing capacity. Resting oxyhemoglobin saturation is low-normal, and decreases a significant degree (>/ 5%) with ambulation. Exertional hypoxia was not demonstrated on this abbreviated walk test. PIFR testing demonstrated appropriate flow rage generation for MDI and most DPI devices, but sub-optimal flow generation during high resistance testing which simulates the HandiHaler device. Yasir Mac MD, 05/16/2018, 2:41 PM Pulmonary & Critical Care Sam Monzon MD PFT ORDERABLES documented in this encounter Visit Diagnoses Diagnosis Chronic obstructive pulmonary disease, unspecified COPD type Chronic obstructive pulmonary disease, unspecified COPD type documented in this encounter Care Teams Acid Purifier Relationship Specialty Start Date End Date John Diaz MD [address] [place] [address] PCP - General 12/22/14 07/18/21 documented as of this encounter
--- OUTSIDE RECORDS SUMMARY | 2024-05-02 13:59 | XMS_ITS | Encounter Summary ---
Author Organization [facility] Address [facility] [place] [address] Care Team Providers Care Hospitality Specialist Name Role Phone John Diaz MD Primary Care Provider [phone] Encounter Details Date Type Department Care Team (Late st Contact Info) Description 02/28/2018 Telephone Cardiology at [address] [address] Nadya Sanchez MD [facility] [place] [address] Social History Tobacco Use Types Packs/Day Years [...] encounter Miscellaneous Notes * Telephone Encounter - Nadya Sanchez V - 02/28/2018 5:28 PM EDT Telephone Triage Note Initial Contact Date: February 28, 2018 Initial contact time: 5:29 PM Referring Provider: Dr Dale Patient Location: [facility] Presenting Symptoms per OSH: Chest pain and shortness of breath for few hours. Resolved by the timeshe came to ER. Past Medical History: COPD, HTN, Lupus, current smoker Pertinent Diagnostic Findings: Vitals: BP 128/62 HR 82 SaO2 99% on RA EKG : Reviewed as scanned. Subtle NSST changes. Otherwise NSR and no acute findings. Troponin : 1.06 OSH Interventions: - Aspirin and 300 mg of Plavix given Assessment/ Plan: - Management of NSTEMI by hospitalist service in [facility] overnight. - ASA/Plavix/IV heparin. - [facility] and will be transferred once beds open up in [facility]. Nadya Sanchez MD 5:32 PM February 28, 2018 Email Marketing Executive Pager # [phone] documented in this encounter Plan of Treatment Upcoming Encounters Date Type Department Care Team (Late st Contact Info) Description 05/29/2024 2:00 PM EDT Office Visit Cardiology at [address] [address] Estiven Raza MD [facility] [place] [address] documented as of this encounter Visit Diagnoses Not on filedocumented in this encounter Care Teams Hospitality Specialist Relationship Specialty Start Date End Date John Diaz MD [address] [facility] [address] [place] [address] PCP - General 12/22/14 07/18/21 documented as of this encounter
--- OUTSIDE RECORDS SUMMARY | 2024-05-02 13:59 | XMS_ITS | Encounter Summary ---
[place] [address] Care Team Providers Care Loan Approver Name Role Phone John Diaz MD Primary Care Provider [phone] Encounter Details Date Type Department Care Team (Late st Contact Info) Description 05/20/2018 [place] [address] Ariadna Solis Social History Tobacco Use Types [...] Telephone Encounter - Ariadna Solis - 05/20/2018 3:20 PM EDT Telephone call from patient requesting to r/s daniele. documented in this encounter Plan of Treatment Upcoming Encounters Date Type Department Care Team (Late st Contact Info) Description 05/29/2024 2:00 PM EDT Office Visit Cardiology at [address] [phone] Estiven Raza MD [facility] [address] documented as of this encounter Visit Diagnoses Not on filedocumented in this encounter Care Teams Loan Approver Relationship Specialty Start Date End Date John Diaz MD [address] [place] [address] PCP - General 12/22/14 07/18/21 documented as of this encounter
--- OUTSIDE RECORDS SUMMARY | 2024-05-02 13:59 | XMS_ITS | Encounter Summary ---
Author Organization Counts Include [facility] Address [facility] [place] [address] Care Team Providers Care Layout Mechanic Name Role Phone John Diaz MD Primary Care Provider [phone] Encounter Details Date Type Department Care Team (Latest Contact Info) Description 05/16/2018 12:00 PM EDT - 05/16/2018 11:59 PM EDT Hospital En[place] [phone] Chronic obstructive pulmonary disease, unspecified COPD type [...] Sig Dispensed Refills Start Date End Date acetaminophen (TYLENOL) 325 mg Tablet Take 650 [...] muscle daily as needed. 2 each 12/31/2013 tiotropium-olodaterol (STIOLTO RESPIMAT) 2.5-2.5 mcg/actuation MistIndications:Stage 2 moderate COPD by GOLD classification Inhale 2 puffs into the lungs daily. 4 g 05/16/2018 04/02/2019 ipratropium-albuterol (DUONEB) 0.5 mg-3 mg(2.5 mg base)/3 mL Solution for NebulizationIndication s:Chronic obstructive pulmonary disease, unspecified COPD type Take 0.5 mg by nebulization every 8 hours as needed. Dx: COPD J44.9 [address] 03/04/2018 04/25/2021 amLODIPine (NORVASC) 2.5 mg Tablet Take 1 tablet by mouth daily. 30 tablet 2 03/04/2018 09/27/2022 nitroGLYcerin (NITROSTAT) 0.4 mg Tablet, Sublingual Place 1 tablet under the tongue every 5 minutes as needed for Chest pain. 25 tablet 3 03/03/2018 03/27/2019 metoprolol succinate (TOPROL-XL) 25 mg Tablet Sustained [...] as of this encounter Procedure Notes * Yasir Mac MD - 05/16/2018 2:41 PM EDTAssociated Order(s): PULMONARY FUNCTION TEST Spirometry: FVC is normal FEV1 is decreased FEV1 / FVC ratio is decreased Lung Volumes: TLC is increased RV is increased ERV is normal FRC is increased RV/TLC is increased Diffusion: DLCO is decreased Oxygen Saturation: Oxygen saturation was 94% at rest, and was 89% after 375 feet of ambulation on room air. Peak Inspiratory Flow Rate Testing: Low resistance [...] PIFR testing demonstrated appropriate flow rage generation forMDI and most DPI devices, but sub-optimal flow generation during high resistance testing which simulates the HandiHaler device. Yasir Mac MD, 05/16/2018, 2:41 PM Pulmonary & Critical Care documented in this encounter Plan of Treatment Upcoming Encounters Date Type Department Care Team (Late st Contact Info) Description 05/29/2024 2:00 PM EDT Office Visit Cardiology at [address] [address] Estiven Raza MD [facility] [place] [address] documented as of this encounter Procedures Procedure Name Priority Date/Time Associated Diagnosis Comments COMMON PULMONARY FUNCTION TEST Routine 05/16/2018 2:46 PM EDT Chronic obstructive pulmonary disease, unspecified COPD type [...] type documented in this encounter Care Teams Layout Mechanic Relationship Specialty Start Date End Date John Diaz MD [address] [place] [address] PCP - General 12/22/14 07/18/21 documented as of this encounter
--- OUTSIDE RECORDS SUMMARY | 2024-05-02 14:00 | XMS_ITS | Encounter Summary ---
Author Organization [facility] Address [facility] [place] [address] Care Team Providers Care Propeller Layout Worker Name Role Phone John Diaz MD Primary Care Provider [phone] Encounter Details Date Type Department Care Team (Late st Contact Info) Description 01/05/2015 Orders [place] [address] Jaleesa Sawyer MD [facility] [place] [address] Elevated serum creatinine (Primary Dx) Social History Tobacco Use Types [...] as of this encounter Progress Notes * Tawanna Demarco RN - 01/05/2015 11:58 AM EDT Lab orders faxed to [facility]. documented in this encounter Plan of Treatment Upcoming Encounters Date Type Department Care Team (Late st Contact Info) Description 05/29/2024 2:00 PM EDT Office Visit Cardiology at [address] [address] Estiven Raza MD [facility] [place] [address] documented as of this encounter Visit Diagnoses Diagnosis Elevated serum creatinine- Primary Other nonspecific findings on examination of blood documented in this encounter Care Teams Propeller Layout Worker Relationship Specialty Start Date End Date John Diaz MD [address] [place] [address] PCP - General 12/22/14 07/18/21 documented as of this encounter
--- OUTSIDE RECORDS SUMMARY | 2024-05-02 14:00 | XMS_ITS | Encounter Summary ---
Author Organization [facility] Address [facility] [place] [address] Care Team Providers Care Wood Tank Erector Name Role Phone Unknown Primary Care Provider Unavailabl e Encounter Details Date Type Department Care Team (Late Contact Info) Description 08/05/2014 Telephone Family Medicine at [facility] [address] [place] [address] Buddy Hicks MD [facility] [place] [address] Social History Tobacco Use Types Packs/Day Years [...] encounter Miscellaneous Notes * Telephone Encounter - Elena Lee MA - 08/05/2014 1:43 PM EST Called patient to check on current BP readings. She did not answer I left message for her to call me back. documented in this encounter Plan of Treatment Upcoming Encounters Date Type Department Care Team (Late st Contact Info) Description 05/29/2024 2:00 PM EDT Office Visit Cardiology at [address] [address] Estiven Raza MD [facility] [place] [address] documented as of this encounter Visit Diagnoses Not on filedocumented in this encounter Care Teams Wood Tank Erector Relationship Specialty Start Date End Date Unknown None PCP - General 07/22/14 12/21/14 documented as of this encounter
--- OUTSIDE RECORDS SUMMARY | 2024-05-02 14:00 | XMS_ITS | Encounter Summary ---
Author Organization [facility] Address [facility] [place] [address] Care Team Providers Care Rn Transport Name Role Phone Unknown Primary Care Provider Unavailabl e Reason for Visit * Reason Onset Date Comments Medication Refill 08/25/2014 Encounter Details Date Type Department Care Team (Late st Contact Info) Description 08/25/2014 Refill Family Medicine at [facility] [address] [place] [phone] Radah Vivar Anxiety; Insomnia Social History Tobacco Use Types Packs/Day Years [...] encounter Miscellaneous Notes * Telephone Encounter - Faith Simmons RN - 08/27/2014 3:17 PM EST I called in prescription for ativan 1mg dated 08-26-14 to [facility] pharmacy[facility]. I spoke with Penelope. Paper rx shredded. * Telephone Encounter - Radha Vivar - 08/25/2014 4:28 PM EST Pt called stating she is all out of Rx Pt will not be seeing her new PCP until a later date, would like Rx filled by Dr. Barnett documented in this encounter Plan of Treatment Upcoming Encounters Date Type Department Care Team (Late st Contact Info) Description 05/29/2024 2:00 PM EDT Office Visit Cardiology at [address] [phone] Estiven Raza MD [facility] [place] [address] documented as of this encounter Visit Diagnoses Diagnosis Anxiety Anxiety state, unspecified Insomnia Insomnia, unspecified documented in this encounter Care Teams Rn Transport Relationship Specialty Start Date End Date Unknown None PCP - General 07/22/14 12/21/14 documented as of this encounter
--- OUTSIDE RECORDS SUMMARY | 2024-05-02 14:00 | XMS_ITS | Encounter Summary ---
Author Organization [facility] Address [facility] [place] [address] Care Team Providers Care Sql Bi Developer Name Role Phone Unknown Primary Care Provider Unavailabl e Reason for Visit * Reason Comments Medication Refill Encounter Details Date Type Department Care Team (Late st Contact Info) Description 08/07/2014 Refill Family Medicine at [facility] [address] [place] [address] Buddy Hicks MD [facility] [place] [address] Social History Tobacco Use Types Packs/Day Years [...] PM EDT Office Visit Cardiology at [address] [address] Estiven Raza MD [facility] [place] [address] documented as of this encounter Visit Diagnoses Not on filedocumented in this encounter Care Teams Sql Bi Developer Relationship Specialty Start Date End Date Unknown None PCP - General 07/22/14 12/21/14 documented as of this encounter
--- OUTSIDE RECORDS SUMMARY | 2024-05-02 14:00 | XMS_ITS | Encounter Summary ---
Author Organization [facility] Address [facility] [place] [address] Care Team Providers Care Professor Of Anthropology Name Role Phone Buddy Hicks MD Primary Care Provider Encounter Details Date Type Department Care Team (Late st Contact Info) Description 02/05/2014 Telephone Family Medicine at [facility] [address] [place] [phone] [place] [address] Social History Tobacco Use Types Packs/Day Years [...] encounter Miscellaneous Notes * Telephone Encounter - Diego Peacock RN - 02/05/2014 10:35 AM EDT Ativan script called to [facility], script had not yet been faxed. documented in this encounter Plan of Treatment Upcoming Encounters Date Type Department Care Team (Late st Contact Info) Description 05/29/2024 2:00 PM EDT Office Visit Cardiology at [address] [phone] Estiven Raza MD [facility] [place] [address] documented as of this encounter Visit Diagnoses Not on filedocumented in this encounter Care Teams Professor Of Anthropology Relationship Specialty Start Date End Date Buddy Hicks MD [facility] [address] [place] [address] PCP - General 02/13/12 07/21/14 documented as of this encounter
--- OUTSIDE RECORDS SUMMARY | 2024-05-02 14:00 | XMS_ITS | Encounter Summary ---
Author Organization [facility] Address [facility] [place] [place] [address] Care Team Providers Care Cyber Incident Handler Name Role Phone Buddy Hicks MD Primary Care Provider [phone] Reason for Visit * Reason Onset Date Comments Medication Refill 10/01/2013 Encounter Details Date Type Department Care Team (Late st Contact Info) Description 10/01/2013 Refill Family Medicine at [facility] [address] [place] [phone] Buddy Hicks MD [facility] [place] [address] Social History Tobacco Use Types Packs/Day Years [...] encounter Miscellaneous Notes * Telephone Encounter - Malena Dunham LPN - 10/02/2013 1:03 PM EST rx called to pharmacy * Telephone Encounter - Makenzie Mancia - 10/01/2013 10:34 AM EST Has 3 left documented in this encounter Plan of Treatment Upcoming Encounters Date Type Department Care Team (Late st Contact Info) Description 05/29/2024 2:00 PM EDT Office Visit Cardiology at [address] [address] Estiven Raza MD [facility] [place] [address] documented as of this encounter Visit Diagnoses Not on filedocumented in this encounter Care Teams Cyber Incident Handler Relationship Specialty Start Date End Date Buddy Hicks MD [facility] [address] [facility] [place] [address] PCP - General 02/13/12 07/21/14 documented as of this encounter
--- OUTSIDE RECORDS SUMMARY | 2024-05-02 14:00 | XMS_ITS | Encounter Summary ---
Author Organization [facility] [place] [address] Care Team Providers Care Water Filterer Helper Name Role Phone Buddy Hicks MD Primary Care Provider Reason for Visit * Reason Onset Date Comments Medication Refill 03/03/2014 Encounter Details Date Type Department Care Team (Late st Contact Info) Description 03/03/2014 Refill Family Medicine at [facility] [address] [place] [phone] Niecy Romero Social History Tobacco Use Types Packs/Day Years [...] encounter Miscellaneous Notes * Telephone Encounter - Aniya Ceja LPN - 03/05/2014 2:42 PM EDT rx faxed to pharmacy documented in this encounter Plan of Treatment Upcoming Encounters Date Type Department Care Team (Late st Contact Info) Description 05/29/2024 2:00 PM EDT Office Visit Cardiology at [address] [address] Estiven Raza MD [facility] [place] [address] documented as of this encounter Visit Diagnoses Not on filedocumented in this encounter Care Teams Water Filterer Helper Relationship Specialty Start Date End Date Buddy Hicks MD [facility] [address] [place] [place] [address] PCP - General 02/13/12 07/21/14 documented as of this encounter
--- OUTSIDE RECORDS SUMMARY | 2024-05-02 14:00 | XMS_ITS | Encounter Summary ---
Author Organization [facility] [place] [address] Care Team Providers Care Gold Stamper Name Role Phone John Diaz MD Primary Care Provider [phone] Reason for Referral * Diagnostic Test (Routine) - Specialty Diagnoses / Procedures Referred By Contac t Referred To Contact Procedures MRI Lumbar Spine wo Contrast (Generic) [facility] [address] [place] [address] Referral ID Status Reason Start Date Expiration Date Visits Requested Visits Authorized [id number] Specialty Service Requested 11/05/2017 05/04/2018 1 1 Encounter Details Date Type Department Care Team (Late st Contact Info) Description 11/05/2017 External [place] [address] Provider, Scanning Social History Tobacco Use Types Packs/Day Years [...] 2:00 PM EDT Office Visit Cardiology at [address] [place] [address] Estiven Raza MD [facility] [place] [address] documented as of this encounter Procedures Procedure Name Priority Date/Time Associated Diagnosis Comments MRI LUMBAR SPINE WITHOUT CONTRAST Routine 10/11/2017 documented in this encounter Results * MRI Lumbar Spine wo Contrast (Generic) (10/11/2017) Anatomical Region Laterality Modality L-spine Magnetic Resonan ce Historical Provider IMManny MRI ORDERABLE S documented in this encounter Visit Diagnoses Not on filedocumented in this encounter Care Teams Gold Stamper Relationship Specialty Start Date End Date John Diaz MD [address] [place] [address] PCP - General 12/22/14 07/18/21 documented as of this encounter
--- OUTSIDE RECORDS SUMMARY | 2024-05-02 14:00 | XMS_ITS | Encounter Summary ---
Author Organization [facility] Address [facility] [place] [address] Care Team Providers Care Office Communication Professor Name Role Phone Buddy Hicks MD Primary Care Provider [phone] Encounter Details Date Type Department Care Team (Late st Contact Info) Description 05/11/2014 External Results Family Medicine at [facility] [address] [place] [address] Buddy Hicks MD [facility] [place] [address] Hypothyroid Social History Tobacco Use Types Packs/Day Years [...] PM EDT Office Visit Cardiology at [address] [address] Estiven Raza MD [facility] [place] [address] documented as of this encounter Procedures Procedure Name Priority Date/Time Associated Diagnosis Comments EXTERNAL LAB CBC CMP THYROID RESULTS PANEL Routine 05/05/2014 documented in this encounter Results * (ABNORMAL) CBC / CMP / Thyroid External Results (05/05/2014) White Blood Cell Hemoglobin 12.0 - 16.0 Hematocrit 36.0 - 46.0 Mean Cell Volume 82.0 - 108.0 Platelet Sodium 143(Exter nal Lab) 137 - 147 Potassium 3.9(Exter nal Lab) 3.4 - 5.3 Chloride 99 - 108 Carbon Dioxide 22 - 29 Blood Urea Nitrogen 12(Narrow Gauge Operator al Lab) Creatinine 1.1(EXTER NAL/ABN) Est Glomerular Filtration Rate 49.85(Ext ernal Lab) Glucose 105(EXTER NAL/ABN) Calcium 8.7 - 10.7 Magnesium Phosphorus 2.5 - 4.9 Protein, Total 6.4 - 8.2 Albumin 3.5 - 5.0 Bilirubin, Total 0.1 - 1.4 Bilirubin, Direct 0.01 - 0.4 Alkaline Phosphatase Aspartate Aminotransferase 13 - 35 Alanine Aminotransferase 7 - 35 Gamma Glutamyl Transferase Lactate Dehydrogenase 80 - 250 Amylase Lipase Thyroid Stimulating Hormone 2.54(Exte rnal Lab) T4 Total 05/05/2014 Historical Provider MD EXTERNAL LAB REMIGIO BLACK documented in this encounter Visit Diagnoses Diagnosis Hypothyroid Unspecified hypothyroidism documented in this encounter Care Teams Office Communication Professor Relationship Specialty Start Date End Date Buddy Hicks MD [facility] [place] [address] PCP - General 02/13/12 07/21/14 documented as of this encounter
--- OUTSIDE RECORDS SUMMARY | 2024-05-02 14:00 | XMS_ITS | Encounter Summary ---
Author Organization [facility] Address [facility] [place] [address] Care Team Providers Care Aeronautical Drafter Name Role Phone John Diaz MD Primary Care Provider [phone] Encounter Details Date Type Department Care Team (Latest Contact Info) Description 10/11/2017 - 10/11/2017 11:59 PM EST Hospital Encounter Radiology Library [facility] [place] [address] Jalesea Sawyer MD [facility] [place] [address] Discharge Disposition: Home Social History Tobacco Use [...] Sig Dispensed Refills Start Date End Date gabapentin (NEURONTIN) 300 mg Capsule TAKE ONE [...] daily as needed. 2 each 11 12/31/2013 PROAIR HFA 90 mcg/actuation HFA Aerosol Inhaler Inhale 2 puffs into the lungs 2 times daily. 05/12/2017 06/17/2018 PULMICORT FLEXHALER 180 mcg/actuation Aerosol Powdr Breath Activated daily as needed. 05/04/2017 06/17/2018 lisinopril (PRINIVIL;ZESTRIL) 2.5 mg Tablet Take 2.5 mg by mouth daily. 07/03/2017 03/14/2022 hydroxychloroquine (PLAQUENIL) 200 mg Tablet Take 1 tablet by mouth daily. 90 tablet 0 02/12/2015 07/19/2021 triamterene-hydrochlor othiazide (MAXZIDE-25) 37.5-25 mg Tablet TAKE ONE-HALF TABLET BY MOUTH DAILY 45 tablet 4 05/25/2014 03/03/2018 aspirin 81 mg Tablet, Delayed Release (E.C.) Take 81 mg by mouth once weekly as needed. 11/02/2017 documented as of this encounter Plan of Treatment Upcoming Encounters Date Type Department Care Team (Late st Contact Info) Description 05/29/2024 2:00 PM EDT Office Visit Cardiology at [address] [address] Estiven Raza MD [facility] [place] [address] documented as of this encounter Procedures Procedure Name Priority Date/Time Associated Diagnosis Comments FILM LIBRARY STORAGE ONLY MR SPINE Routine 10/11/2017 12:00 AM EST documented in this encounter Results * Film Library- Storage Only MR Spine (10/11/2017 12:00 AM EST) Narrative [facility] - 10/26/2017 12:02 PM EDT This exam is for storage only and is auto-finalizing. Jaleesa Sawyer MD IMG FILM LIBRARY ORD ERABLES [place], [place] documented in this encounter Visit Diagnoses Not on filedocumented in this encounter Care Teams Aeronautical Drafter Relationship Specialty Start Date End Date John Diaz MD [address] [place] [address] PCP - General 12/22/14 07/18/21 documented as of this encounter
--- OUTSIDE RECORDS SUMMARY | 2024-05-02 14:00 | XMS_ITS | Encounter Summary ---
Author Organization [facility] [place] [address] Care Team Providers Care Steam Hammer Operator Name Role Phone John Diaz MD Primary Care Provider [phone] Reason for Referral * Consultation (Routine) - Closed Specialty Diagnoses / Procedures Referred By Rangel weldon Referred To Contact Orthopaedics Diagnoses low back pain w/ left sided sciatica/severe narrowing related to epidural lipomatosis/ MRI in [facility] (no report) Jaleesa Sawyer MD [facility] [address] [facility] [place] [address] [address] Referral ID Status Reason Start Date Expiration Date V isits Requested Visits Authorized [id number] Closed Consult, Test & Treat 10/26/2017 10/26/2018 1 1 * Physical Therapy (Routine) - Closed Specialty Diagnoses / Procedures Referred By Rangel weldon Referred To Contact Diagnoses Chronic bilateral low back pain with left-sided sciatica Jaleesa Sawyer MD [facility] [place] [address] Physical Therapy, [address] [address] Referral ID Status Reason Start Date Expiration Date V isits Requested Visits Authorized [id number] Closed Evaluate and Treat 10/26/2017 04/24/2018 12 12 Encounter Details Date Type Department Care Team (Late st Contact Info) Description 10/26/2017 11:00 AM EDT Office [place] [address] Jaleesa Sawyer MD [facility] [place] [address] Chronic bilateral low back pain with left-sided sciatica; Strain of piriformis muscle, left, initial encounter; Systemic lupus erythematosus, unspecified SLE type, unspecified organ involvement status; Spinal stenosis at L4-L5 level Social History Tobacco Use Types Packs/Day Years [...] Sign Reading Time Taken Comments Blood Pressure 119/50 10/26/2017 11:11 AM EDT Pulse 72 10/26/2017 11:11 AM EDT Temperature - - Respiratory Rate 18 10/26/2017 11:11 AM EDT Oxygen Saturation 94% 10/26/2017 11:11 AM EDT Inhaled Oxygen Concentration - - Weight 68 kg (150 lb) 10/26/2017 11:11 AM EDT Height 152.4 cm (5') 10/26/2017 11:11 AM EDT Body Mass Index 29.29 10/26/2017 11:11 AM EDT documented in this encounter Progress Notes * Jaleesa Sawyer MD - 10/26/2017 11:00 AM EDT Rheumatology Outpatient Follow-up Note Rheum Hx: # SLE - discoid rash, photosensitivity, and possible relationship to her seizures - on hydroxychloroquine 200mg daily - BISI/SSB positive - positive anticardiolipin IgM ab 50 - previously followed by Dr. Wilson History of Present Illness: Thanh Gonzalez is a 66 y.o. female with COPD, CKD, HTN, hypothyroid, and seizure disorder, and SLEwho presents today at her request for evaluation of back pain. Pain and stiffness in legs for the past 5+ years have been stiff when getting up from being sedentary. This has worsened. She fell 1.5 years ago and fractured her left humerus. She wonders if this has had something to do with her back pain. The patient has pain in the left back and left hip with standing, hard to lay on her left side due to lateral hip pain. She feels that her left leg/foot are not as strong. Has to go up the stairs one at a time. She denies any associated numbness, but does report shooting pain down the left leg. Pt reports that she had a recent MRI of her spine - she indicates that she was diagnosed with spinal stenosis and some fatty tissue that is pressing on her spine. She has noticed decreased strengthin the left hand, to f/u regarding her SLE. Last seen by me in December 2014. Thanh also has had a left 1st digit that is getting stuck at times, not painful, not tender. Thanh has not tried any NSAIDs or topicals for this. Thanh remains on plaquenil 200mg daily. ROS: No fevers/chills Lower energy lately Sleeping ok, maybe more than she should she says Patient's medications, allergies, past medical, surgical, social [...] ??? Hx of adenomatous colonic polyps Z86.010 Family Hx: Daughter has hypothyroid (-)RA, (-)lupus, (-)scleroderma, (-)sjogren's, (-)gout, (-)psoriasis, (-)MS Social History: Lives in [place], [place]. She has 5 children. She has 3 grandchildren. She has 2 children who live in [place]. She has 3 of her boys who live with her. Tobacco - quit 10 years ago Etoh - has a beer once in a while Drugs - none Physical Examination: BP 119/50 Pulse 72 Resp 18 Ht 152.4 cm (5') Wt 68 kg (150 lb) SpO2 94% BMI 29.29 kg/m2 General: AAOx3, NAD HEENT: Mucous membranes are moist, no oral mucosal ulcerations, geographic tongue. Neck: Supple, no lymphadenopathy Cardiovascular: RRR, (-)murmurs, rubs, or gallops. Lungs: Diminished air movement bilaterally. No w/r/r. Abdomen: Soft, nontender, nondistended, normal active bowel sounds. Neuro: Alert and oriented x3. Normal gait. Extremities: Shoulders: FROM, non-tender to palpation Elbows:FROM, (-)pain, (-)nodules Wrists: FROM, no swelling, non-tender Hands: No synovitis, no MCP compression tenderness, full claw and fist. Right 5th PIP flexion contracture, a few heberdens. Hips: FROM Knees: (-)effusions, non-tender ROM Ankles: FROM, non-tender, no swelling Back: nontender, neg straight leg raise bilaterally, left piriformis is tender, left greater trochanter nontender Laboratory Data: Lab Results Component Value Date WBC 7.0 07/10/2017 HGB 14.1 07/10/2017 HCT 42.8 07/10/2017 MCV 89.4 07/10/2017 PLATELET 314 07/10/2017 Lab Results Component Value Date NA 141 07/10/2017 K 4.2 07/10/2017 CL 100 07/10/2017 CO2 28 07/10/2017 BUN 15 07/10/2017 CREATININE 0.89 07/10/2017 GLUCOSE 96 07/10/2017 CALCIUM 9.5 07/10/2017 ESTGFR >60 07/10/2017 Lab Results Component Value Date ALT 14 07/10/2017 AST 16 07/10/2017 ALKPHOS 66 07/10/2017 BILITOT 0.3 07/10/2017 BILIDIR 0.1 12/22/2014 ALBUMIN 3.8 07/10/2017 PROT 6.8 07/10/2017 Lab Results Component Value Date SEDRATE 11 07/10/2017 Studies: MRI lumbar spine from October 2017 - [facility] djd L4-5 and L5-12. Mild neural foraminal narrowing at L5-S1 bilat. Eidural lipomatosis causing severe narrowing of the central canal from the L4 -5 through S1 levels. Impression: Thanh Gonzalez is a 66 y.o. female with COPD, hx of seizures, hypothyroid, and SLE who presents today for low back pain and left buttock/hip pain. Left hip pain likely most consistent with piriformis syndrome for which I recommended exercises/PT, not having any alarming sxs or signs on exam associated with severe spinal stenosis (as noted on the MRI). Patient would like to see the spine center to discuss the findings on her MRI, thus referral placed. Recommendations: - continue plaquenil 200mg daily - PT referral for possible piriformis syndrome and low back pain/spinal stenosis - referral to the spine center - f/u in 6 months for SLE CC: John Diaz MD documented in this encounter Plan of Treatment Upcoming Encounters Date Type Department Care Team (Late st Contact Info) Description 05/29/2024 2:00 PM EDT Office Visit Cardiology at [address] [address] Estiven Raza MD [facility] [place] [address] Scheduled Referrals Name Type Priority Associated Diagnoses Orde r Schedule Referral to Physical Therapy Outpatient Referral Routine Chronic bilateral low back pain with left-sided sciatica Ordered: 10/26/2017 Referral to Spine Center Outpatient Referral Routine Chronic bilateral low back pain with left-sided sciatica Ordered: 10/26/2017 documented as of this encounter Visit Diagnoses Diagnosis Chronic bilateral low back pain with left-sided sciatica Strain of piriformis muscle, left, initial encounter Systemic lupus erythematosus, unspecified SLE type, unspecified organ involvement status Spinal stenosis at L4-L5 level documented in this encounter Care Teams Steam Hammer Operator Relationship Specialty Start Date End Date John Diaz MD [address] [facility] [address] [place] [address] PCP - General 12/22/14 07/18/21 documented as of this encounter
--- OUTSIDE RECORDS SUMMARY | 2024-05-02 14:00 | XMS_ITS | Encounter Summary ---
Author Organization [facility] Address [facility] [place] [address] Care Team Providers Care Manager Wound Care Name Role Phone Buddy Hicks MD Primary Care Provider Reason for Referral * Consultation (Routine) - Complete - Patient Will Schedule External Appt Specialty Diagnoses / Procedures Referred By Rangel weldon Referred To Contact General Surgery Diagnoses Hx of adenomatous colonic polyps Buddy Hicks MD [facility] [place] [address] Que Solis, DO [address] [place] [address] Referral ID Status Reason Start Date Expiration Date Visits Requested Visits Authorized [id number] Complete - Patient Will Schedule External Appt Test Only 4 11/23/2014 1 1 Reason for Visit * Reason Onset Date Comments Referral 05/27/2014 Encounter Details Date Type Department Care Team (Late st Contact Info) Description 05/27/2014 Telephone Family Medicine at [facility] [address] [place] [phone] Regla Simmons Referral Social History Tobacco Use Types Packs/Day Years [...] encounter Miscellaneous Notes * Telephone Encounter - Joseph Albarran RN - 05/27/2014 4:22 PM EDT Pt's referral for her colonoscopy has been electronically scanned to Dr. Que Solis's office. Pt was made aware of this. * Telephone Encounter - Regla Simmons - 05/27/2014 1:29 PM EDT Patient called requesting to get an order for a colonoscopy. She would like to get it done at [facility] in [facility]. Please call back. documented in this encounter Plan of Treatment Upcoming Encounters Date Type Department Care Team (Late st Contact Info) Description 05/29/2024 2:00 PM EDT Office Visit Cardiology at [address] [address] Estiven Raza MD [facility] [place] [address] Scheduled Referrals Name Type Priority Associated Diagnoses Order Schedule Referral to Gastroenterology Outpatient Referral Routine Hx of adenomatous colonic polyps Ordered: 05/27/2014 documented as of this encounter Visit Diagnoses Diagnosis Hx of adenomatous colonic polyps- Primary Personal history of colonic polyps documented in this encounter Care Teams Manager Wound Care Relationship Specialty Start Date End Date Buddy Hicks MD [facility] [address] [place] [address] PCP - General 02/13/12 07/21/14 documented as of this encounter
--- OUTSIDE RECORDS SUMMARY | 2024-05-02 14:00 | XMS_ITS | Encounter Summary ---
Author Organization [facility] Address [place] [address] Care Team Providers Care Liquor Grinding Mill Operator Name Role Phone John Diaz MD Primary Care Provider [phone] Reason for Visit * Reason Comments Medication Refill Encounter Details Date Type Department Care Team (Late st Contact Info) Description 02/24/2015 Refill Family Medicine at [facility] [address] [place] [address] Buddy Hicks MD [facility] [facility] [address] Social History Tobacco Use Types Packs/Day Years [...] PM EDT Office Visit Cardiology at [address] [address] Estiven Raza MD [facility] [place] [address] documented as of this encounter Visit Diagnoses Not on filedocumented in this encounter Care Teams Liquor Grinding Mill Operator Relationship Specialty Start Date End Date John Diaz MD [address] [place] [address] PCP - General 12/22/14 07/18/21 documented as of this encounter
--- OUTSIDE RECORDS SUMMARY | 2024-05-02 14:00 | XMS_ITS | Encounter Summary ---
Author Organization [facility] Address [facility] [place] [address] Care Team Providers Care Stretch Press Operator Name Role Phone Gabby Castaneda SUDHAKAR Primary Care Provider [phone] Reason for Visit * Reason Comments Medication Refill Encounter Details Date Type Department Care Team (Late st Contact Info) Description 09/07/2015 Refill Family Medicine at [facility] [address] [place] [address] Buddy Hicks MD [facility] [address] [facility] [place] [address] Social History Tobacco Use Types Packs/Day Years [...] 2:00 PM EDT Office Visit Cardiology at [address] [address] Estiven Raza MD [facility] [place] [address] documented as of this encounter Visit Diagnoses Not on filedocumented in this encounter Care Teams Stretch Press Operator Relationship Specialty Start Date End Date Gabby Castaneda APRN [address] [place] [address] PCP - General Family Medicine 07/19/21 04/30/23 documented as of this encounter
--- OUTSIDE RECORDS SUMMARY | 2024-05-02 14:00 | XMS_ITS | Encounter Summary ---
Author Organization [facility] Address [facility] [place] [address] Care Team Providers Care Child Care Worker Name Role Phone John Diaz MD Primary Care Provider [phone] Reason for Visit * Reason Comments Low Back Pain Left Hip Pain Left Leg Pain Neck Pain Encounter Details Date Type Department Care Team (Latest Contact Info) Description 01/03/2018 11:00 AM EDT Office [place] [address] [place] [address] Epidural lipomatosis; Spinal stenosis of lumbar region with radiculopathy Social History Tobacco Use Types Packs/Day Years [...] as of this encounter Progress Notes * Nitesh Ortega PA - 01/03/2018 11:00 AM EDT Thanh Gonzalez is a 67-year-old female seen today in follow-up visit to discuss her continued symptoms of low back pain with left lower extremity radiation. This in the context of underlying spinal stenosis secondary to epidural lipomatosis at the L4-L5 and L5-S1 levels. She had been doing physical therapy and has been finding this to be very beneficial. She continues to be active walking outside, doing flexion-based exercises. She feels as if the pain has improved quite well following the physical therapy and it is generally within her control. She denies any other changes to her symptoms. She also mentions having lost about 3 pounds or so of weight ever since she started exercising more frequently and she is quite pleased with that. No new studies to review today. We did briefly go over her last MRI of the lumbar spine which showed levels of epidural lipomatosis L4-L5 and L5-S1 along with concordant disc and facet degenerative changes at both of these levels as well. Assessment/plan: Thanh Gonzalez is 67-year-old female seen today for continued symptoms of low back pain with left lower extremity pain. She finds the symptoms are generally manageable, and as of present does not really wish to undergo further treatment for her spinal stenosis and epidural lipomatosis. She does note that if her symptoms are aggravated that he can consider an anesthetic only epidural injection. We would like to avoid exogenous steroids in her case as this can exacerbate the epidurallipomatosis. Lastly, we can also consider spine surgery which would comprise of posterior decompression L4 through S1, which I had confirmed with spine surgeon Alexys Han MD. documented in this encounter Plan of Treatment Upcoming Encounters Date Type Department Care Team (Late st Contact Info) Description 05/29/2024 2:00 PM EDT Office Visit Cardiology at [address] [address] Estiven Raza MD [facility] [place] [address] documented as of this encounter Visit Diagnoses Diagnosis Epidural lipomatosis Lipoma of other specified sites Spinal stenosis of lumbar region with radiculopathy Spinal stenosis, lumbar region, without neurogenic claudication documented in this encounter Care Teams Child Care Worker Relationship Specialty Start Date End Date John Diaz MD [address] [place] [address] PCP - General 12/22/14 07/18/21 documented as of this encounter
--- OUTSIDE RECORDS SUMMARY | 2024-05-02 14:00 | XMS_ITS | Encounter Summary ---
Author Organization [facility] Address [facility] [place] [address] Care Team Providers Care Stone Finisher Name Role Phone Buddy Hicks MD Primary Care Provider Reason for Visit * Reason Onset Date Comments Medication Refill 05/05/2014 Encounter Details Date Type Department Care Team (Late st Contact Info) Description 05/05/2014 Refill Family Medicine at [facility] [address] [place] [phone] Regla Simmons Social History Tobacco Use Types Packs/Day Years [...] PM EDT Office Visit Cardiology at [address] [phone] Estiven Raza MD [facility] [place] [address] documented as of this encounter Visit Diagnoses Not on filedocumented in this encounter Care Teams Stone Finisher Relationship Specialty Start Date End Date Buddy Hicks MD [facility] [address] [place] [address] PCP - General 02/13/12 07/21/14 documented as of this encounter
--- OUTSIDE RECORDS SUMMARY | 2024-05-02 14:00 | XMS_ITS | Encounter Summary ---
Author Organization [facility] Address [facility] [place] [address] Care Team Providers Care Flower Cheniller Name Role Phone Buddy Hicks MD Primary Care Provider [phone] Encounter Details Date Type Department Care Team (Late st Contact Info) Description 06/01/2014 External Results Family Medicine at [facility] [address] [place] [address] Buddy Hicks MD [facility] [place] [address] Screening mammogram for high-risk patient Social History Tobacco Use Types Packs/Day Years [...] PM EDT Office Visit Cardiology at [address] [address] Estiven Raza MD [facility] [place] [address] documented as of this encounter Procedures Procedure Name Priority Date/Time Associated Diagnosis Comments EXTERNAL MAMMOGRAM RESULT Routine 05/26/2014 documented in this encounter Results * External Mammogram (05/26/2014) External Mammogram Negative Anatomical Region Laterality Modality Other 05/26/2014 Historical Provider IMG OUTSIDE INTER PRETATION ORDERABLES documented in this encounter Visit Diagnoses Diagnosis Screening mammogram for high-risk patient documented in this encounter Care Teams Flower Cheniller Relationship Specialty Start Date End Date Buddy Hicks MD [facility] [place] [place] [address] PCP - General 02/13/12 07/21/14 documented as of this encounter
--- OUTSIDE RECORDS SUMMARY | 2024-05-02 14:00 | XMS_ITS | Encounter Summary ---
Author Organization [facility] Address [place] [address] Care Team Providers Care Pipeline Integrity Engineer Name Role Phone Gabby Castaneda SUDHAKAR Primary Care Provider [phone] Reason for Visit * Reason Comments Medication Refill Encounter Details Date Type Department Care Team (Late st Contact Info) Description 09/09/2015 Refill Family Medicine at [facility] [address] [place] [address] Buddy Hicks MD [facility] [address] [facility] [place] [address] Social History Tobacco Use Types Packs/Day Years [...] PM EDT Office Visit Cardiology at [address] [address] Estiven Raza MD [facility] [place] [address] documented as of this encounter Visit Diagnoses Not on filedocumented in this encounter Care Teams Pipeline Integrity Engineer Relationship Specialty Start Date End Date Gabby Castaneda APRN [address] [place] [address] PCP - General Family Medicine 07/19/21 04/30/23 documented as of this encounter
--- OUTSIDE RECORDS SUMMARY | 2024-05-02 14:00 | XMS_ITS | Encounter Summary ---
Author Organization [facility] Address [facility] [place] [address] Care Team Providers Care Residence Counselor Name Role Phone Buddy Hicks MD Primary Care Provider Encounter Details Date Type Department Care Team (Late st Contact Info) Description 08/21/2013 Refill Family Medicine at [facility] [address] [place] [address] [place] [address] Social History Tobacco Use Types Packs/Day Years [...] Telephone Encounter - Aniya Ceja LPN - 08/25/2013 1:29 PM EST rx faxed to pharmacy documented in this encounter Plan of Treatment Upcoming Encounters Date Type Department Care Team (Late st Contact Info) Description 05/29/2024 2:00 PM EDT Office Visit Cardiology at [address] [address] Estiven Raza MD [facility] [place] [address] documented as of this encounter Visit Diagnoses Not on filedocumented in this encounter Care Teams Residence Counselor Relationship Specialty Start Date End Date Buddy Hicks MD [facility] [place] [address] PCP - General 02/13/12 07/21/14 documented as of this encounter
--- OUTSIDE RECORDS SUMMARY | 2024-05-02 14:00 | XMS_ITS | Encounter Summary ---
Author Organization [facility] Address [place] [address] Care Team Providers Care Jig Boring Machine Set Up Operator Name Role Phone John Diaz MD Primary Care Provider [phone] Encounter Details Date Type Department Care Team (Late st Contact Info) Description 07/10/2017 11:30 AM EST Office Visit [place] [address] Jaleesa Sawyer MD [facility] [place] [address] Systemic lupus erythematosus, unspecified SLE type, unspecified organ involvement status Social History Tobacco Use Types Packs/Day Years [...] Sign Reading Time Taken Comments Blood Pressure 128/53 07/10/2017 11:30 AM EST Pulse 64 07/10/2017 11:30 AM EST Temperature - - Respiratory Rate 18 07/10/2017 11:30 AM EST Oxygen Saturation 98% 07/10/2017 11:30 AM EST Inhaled Oxygen Concentration - - Weight 67.6 kg (149 lb) 07/10/2017 11:30 AM EST Height 152.4 cm (5') 07/10/2017 11:30 AM EST Body Mass Index 29.1 07/10/2017 11:30 AM EST documented in this encounter Progress Notes * Jaleesa Sawyer MD - 07/10/2017 11:30 AM EST Rheumatology Outpatient Follow-up Note Rheum Hx: # SLE - discoid rash, photosensitivity, and possible relationship to her seizures - on hydroxychloroquine 200mg daily - BISI/SSB positive - positive anticardiolipin IgM ab 50 - previously followed by Dr. Wilson History of Present Illness: Thanh Gonzalez is a 66 y.o. female with COPD, CKD, HTN, hypothyroid, and seizure disorder, and SLEwho presents today to f/u regarding her SLE. Last seen by me in December 2014. Thanh reports she has been having more difficulty with her COPD. She sees her PCP for this, doesn't like going to her prior marine equipment design engineer. She is using inhalers (combivent and budesonide). She notices the SOB mostly with activity. Just got over pneumonia, was on antibiotics and prednisone. Thanh no longer smokes, quit 10-11 years ago. She received the flu shot. Thanh broke her left arm after falling while walking her dog - her dog pulled her and she fell andlanded on her left arm, and hit her face on the side of the ground and lost consciousness. She had to wear a sling. Continues to have some pain in the left shoulder. Did go to PT for the arm, but still has difficulty raising the left arm. Thanh remains on plaquenil 200mg daily. ROS: Has had a cough, which seems to be triggered by the forced hot hair No weight loss No night sweats No chest pains No dry eyes/mouth Occasional mouth sores No ocular sxs, wears glasses No photosensitivity No hair loss Did have a rash in groin and insider of her upper arm (was red and itchy but improving). She did notice some pustules. Using OTC cream which has helped. No numbness/tingling Mood is on citalopram, and I'm a different person Patient's medications, allergies, past medical, surgical, social [...] (-)gout, (-)psoriasis, (-)MS Social History: Lives in [place], [place]. She has 5 children. She has 3 grandchildren. She has 2 children who live in [place]. She has 3 of her boys who live with her. Tobacco - quit 10 years ago Etoh - has a beer once in a while Drugs - none Physical Examination: BP 128/53 Pulse 64 Resp 18 Ht 152.4 cm (5') Wt 67.6 kg (149 lb) SpO2 98% BMI 29.1 kg/m2 General: AAOx3, NAD HEENT: Mucous membranes are moist, no oral mucosal ulcerations, geographic tongue. Skin: Erythematous area on inside of left upper arm with lots of flaking dry skin. Erythema with telangiectasias on ulnar sides of each proximal palm. Neck: Supple, no lymphadenopathy, full range of motion. Soft tissue/skin-colored nodule on right anterior aspect of neck Cardiovascular: RRR, (-)murmurs, rubs, or gallops. Lungs: [...] Ankles: FROM, non-tender, no swelling Laboratory Data: None since 2010 Studies: None since 2012 Impression: Thanh Gonzalez is a 66 y.o. female with COPD, hx of seizures, hypothyroid, and SLE who presents today in f/u for SLE. Overall, Thanh appears to be doing well. Continues to have sxs related to her COPD but SLE symptoms appear well- controlled and stable. Will check lupus labs, and continue plaquenil. Recommendations: - continue plaquenil 200mg daily - check lupus labs today (CBC, CMP, ESR, dsDNA, C3/C4, UA with micro, prot/cre ratio) - continue with daily baby aspirin - f/u annually CC: John Diaz MD documented in this encounter Miscellaneous Notes * Addendum Note - Hansa Avila - 07/10/2017 1:27 PM ESTAddended by: HANSA AVILA on: 07/10/2017 01:27 PM Modules accepted: Orders documented in this encounter Plan of Treatment Upcoming Encounters Date Type Department Care Team (Late st Contact Info) Description 05/29/2024 2:00 PM EDT Office Visit Cardiology at [address] [address] Estiven Raza MD [facility] [place] [address] documented as of this encounter Procedures Procedure Name Priority Date/Time Associated Diagnosis Comments DNA ANTIBODY (DOUBLE-STRANDED) Routine 07/10/2017 1:35 PM EST Systemic lupus erythematosus, unspecified SLE type, unspecified organ involvement status HEMOGRAM Routine 07/10/2017 1:35 PM EST Systemic lupus erythematosus, unspecified SLE type, unspecified organ involvement status DIFFERENTIAL, AUTOMATED Routine 07/10/2017 1:35 PM EST Systemic lupus erythematosus, unspecified SLE type, unspecified organ involvement status SEDIMENTATION RATE Routine 07/10/2017 1: 35 PM EST Systemic lupus erythematosus, unspecified SLE type, unspecified organ involvement status CBC (WITH DIFF) Routine 07/10/2017 1:35 PM EST Systemic lupus erythematosus, unspecified SLE type, unspecified organ involvement status C3 COMPLEMENT Routine 07/10/2017 1:35 PM EST Systemic lupus erythematosus, unspecified SLE type, unspecified organ involvement status C4 COMPLEMENT Routine 07/10/2017 1:35 PM EST Systemic lupus erythematosus, unspecified SLE type, unspecified organ involvement status COMPREHENSIVE METABOLIC PANEL Routine 07/10/2017 1:35 PM EST Systemic lupus erythematosus, unspecified SLE type, unspecified organ involvement status documented in this encounter Results * (ABNORMAL) Differential, Automated (07/10/2017 1:35 PM EST) Neutrophil % 67.3 % [facility] Neutrophil Absolute 4.69 1.70 - 6.10 x10(3)/mc L [facility] Lymph % 18.8 % [facility] Lymphocytes Abs 1.3 0.9 - 3.2 x10(3)/mc L [facility] Monocyte % 9.2 % [facility] Monocyte Abs 0.6 0.3 - 0.9 x10(3)/mc L [facility] Eos % 2.9 % [facility] Eosinophils Abs 0.2 0.0 - 0.4 x10(3)/mc L [facility] Basophil % 0.7 % [facility] Baso Absolute 0.0 0.0 - 0.1 x10(3)/mc L [facility] Immature Gran % 1.10 % [facility] Comment: Immature granulocytes(IG's)percentage and absolute count will include metamyelocytes, myelocytes, and promyelocytes. Blood smears from CBCs yielding IG's will be scanned manually for concordance. If this scan disagrees with the automated IG or if promyelocytes are noted, a manual differential will be performed. Immature Gran Absolute 0.08(H) 0.00 - 0.04 x10(3)/mc L [facility] Blood specimen (specimen) 07/10/2017 1:35 PM EST 07/10/2017 1:51 PM EST Narrative Resulting Agency Comment Spec In Lab Jaleesa Sawyer MD HEMATOLOGY ORDERABLE S [facility] [place] [address] * Hemogram (07/10/2017 1:35 PM EST) White Blood Cell 7.0 4.0 - 9.5 x10(3)/[facility] Red Blood Cell 4.79 4.00 - 5.21 x10(6)/[facility] Hemoglobin 14.1 11.7 - 15.5 gm/dL [facility] Hematocrit 42.8 35.7 - 45.8 % [facility] Mean Cell Volume 89.4 82.6 - 94.4 fL [facility] Mean Cell Hemoglobin 29.4 27.1 - 32.0 pg [facility] Mean Cell Hemoglobin Concentration 32.9 31.7 - 35.0 gm/dL [facility] Platelet 314 145 - 357 x10(3)/[facility] RDW Standard Deviation 40.4 37.0 - 46.0 [facility] RDW coefficient of variation 12.3 11.5 - 14.1 % [facility] Mean Platelet Volume 10.8 7.6 - 12.9 [facility] NRBC% auto 0.0 % [facility] NRBC Absolute 0.000 0.000 - 0.000 x10(3)/[facility] Blood specimen (specimen) 07/10/2017 1:35 PM EST 07/10/2017 1:51 PM EST Narrative Resulting Agency Comment Spec In Lab Jaleesa Sawyer MD HEMATOLOGY ORDERABLE S [facility] [place] [address] * Sedimentation rate (07/10/2017 1:35 PM EST) Sedimentation Rate Automated 11 0 - 20 mm/hr [facility] Blood specimen (specimen) 07/10/2017 1:35 PM EST 07/10/2017 1:51 PM EST Narrative Resulting Agency Comment Spec In Lab Authorizing Provider Result Avi Sawyer MD HEMATOLOGY ORDERABLE S Performing Organization Address City/[facility]/ZIP Co de Phone Number [facility] [place] [address] * C4 Complement (07/10/2017 1:35 PM EST) Complement C4 26 10 - 40 mg/dL [facility] Blood specimen (specimen) 07/10/2017 1:35 PM EST 07/10/2017 1:51 PM EST Narrative Resulting Agency Comment Spec In Lab Authorizing Provider Result Avi Sawyer MD CHEMISTRY ORDERABLES Performing Organization Address City/[facility]/ZIP Co de Phone Number [facility] [place] [address] * C3 Complement (07/10/2017 1:35 PM EST) Complement C3 126 90 - 180 mg/dL [facility] Blood specimen (specimen) 07/10/2017 1:35 PM EST 07/10/2017 1:51 PM EST Narrative Resulting Agency Comment Spec In Lab Authorizing Provider Result Avi Sawyer MD CHEMISTRY ORDERABLES Performing Organization Address City/[facility]/ZIP Co de Phone Number [facility] [place] [address] * Comprehensive metabolic panel (non-fasting) (07/10/2017 1:35 PM EST) Glucose 96 65 - 199 mg/dL [facility] Comment:Diabetes: >=200 mg/d L plus symptoms Blood Urea Nitrogen 15 8 - 18 mg/dL [facility] Creatinine 0.89 0.70 - 1.20 mg/dL [facility] Sodium 141 135 - 145 mmol/L [facility] Potassium 4.2 3.5 - 5.0 mmol/L [facility] Comment: Please note: ??Patients with WBC >100,000 may have falsely elevated Potassium levels. ??For accurate Potassium quantification in these patients send serum separator tube (gold top) for subsequent determinations. ??Contact the Clinical Chemistry Laboratory if there are any questions. Chloride 100 98 - 107 mmol/L [facility] Carbon Dioxide 28 22 - 31 mmol/L [facility] Anion Gap 13 5 - 15 mmol/L [facility] Calcium 9.5 8.5 - 10.5 mg/dL [facility] Protein, Total 6.8 6.1 - 8.0 gm/dL [facility] Albumin 3.8 3.2 - 5.2 gm/dL [facility] Aspartate Aminotransferase 16 0 - 30 unit/L [facility] Alanine Aminotransferase 14 0 - 30 unit/L [facility] Alkaline Phosphatase 66 40 - 104 unit/L [facility] Bilirubin, Total 0.3 0.2 - 1.3 mg/dL [facility] Est Glomerular Filtration Rate >60 >=60 [facility] Comment: The reported eGFR should be multiplied by 1.2 for patients. The MDRD is not an appropriate measure of renal function for patients with body mass extremes or in patients with acute kidney failure. http://[employer]com/DHnkdep http://[employer]com/DHMCnkf Blood specimen (specimen) 07/10/2017 1:35 PM EST 07/10/2017 1:51 PM EST Narrative Resulting Agency Comment Spec In Lab Jaleesa Sawyer MD CHEMISTRY ORDERABLES [facility] [place] [address] * DNA Antibody (Double-Stranded) (07/10/2017 1:35 PM EST) DNA Ab (DS) Neg Neg [facility] Blood specimen (specimen) 07/10/2017 1:35 PM EST 07/11/2017 7:43 AM EST Narrative Resulting Agency Comment Spec In Lab Jaleesa Sawyer MD LAB SEND OUT ORDERAB LES [facility] [place] [address] documented in this encounter Visit Diagnoses Diagnosis Systemic lupus erythematosus, unspecified SLE type, unspecified organ involvement status documented in this encounter Care Teams Jig Boring Machine Set Up Operator Relationship Specialty Start Date End Date John Diaz MD [address] [place] [address] PCP - General 12/22/14 07/18/21 documented as of this encounter
--- OUTSIDE RECORDS SUMMARY | 2024-05-02 14:00 | XMS_ITS | Encounter Summary ---
Author Organization [facility] Address [facility] [place] [address] Care Team Providers Care Md Pediatric Allergist Name Role Phone Unknown Primary Care Provider Unavailabl e Reason for Visit * Reason Comments Medication Refill Encounter Details Date Type Department Care Team (Late st Contact Info) Description 08/13/2014 Refill Family Medicine at [facility] [address] [place] [address] Rk Huggins Jr., MD [facility] [place] [place] [address] Social History Tobacco Use Types Packs/Day Years [...] PM EDT Office Visit Cardiology at [address] [address] Estiven Raza MD [facility] [place] [address] documented as of this encounter Visit Diagnoses Not on filedocumented in this encounter Care Teams Md Pediatric Allergist Relationship Specialty Start Date End Date Unknown None PCP - General 07/22/14 12/21/14 documented as of this encounter
--- OUTSIDE RECORDS SUMMARY | 2024-05-02 14:00 | XMS_ITS | Encounter Summary ---
Author Organization [facility] Address [facility] [place] [address] Care Team Providers Care Finance Broker Name Role Phone John Diaz MD Primary Care Provider [phone] Encounter Details Date Type Department Care Team (Latest Contact Info) Description 06/17/2016 - 06/17/2016 11:59 PM EST Hospital Encounter Radiology Library at [facility] [place] [address] Dionte Chavez MD [facility] [place] [address] Discharge Disposition: Home Social History Tobacco Use [...] daily as needed. 2 each 11 12/31/2013 hydroxychloroquine (PLAQUENIL) 200 mg Tablet Take 1 tablet by mouth daily. 90 tablet 0 02/12/2015 07/19/2021 triamterene-hydrochlor othiazide (MAXZIDE-25) 37.5-25 mg Tablet TAKE ONE-HALF TABLET BY MOUTH DAILY 45 tablet 4 05/25/2014 03/03/2018 aspirin 81 mg Tablet, Delayed Release (E.C.) Take 81 mg by mouth once weekly as needed. 11/02/2017 fluticasone-salmeterol (ADVAIR DISKUS) 250-50 mcg/dose Disk with Device Inhale 1 puff into the lungs 2 times daily. 3 Inhaler 4 05/08/2014 07/10/2017 documented as of this encounter Plan of Treatment Upcoming Encounters Date Type Department Care Team (Late st Contact Info) Description 05/29/2024 2:00 PM EDT Office Visit Cardiology at [address] [address] Estiven Raza MD [facility] [place] [address] documented as of this encounter Procedures Procedure Name Priority Date/Time Associated Diagnosis Comments FILM LIBRARY STORAGE ONLY DX CHEST Routine 06/17/2016 12:00 AM EST documented in this encounter Results * Film Library- Storage Only DX Chest (06/17/2016 12:00 AM EST) Narrative [facility] - 03/06/2018 9:12 AM EDT This exam is for storage only and is auto-finalizing. Dionte Chavez MD IM FILM LIBRARY ORD ERABLES [place], [place] documented in this encounter Visit Diagnoses Not on filedocumented in this encounter Care Teams Finance Broker Relationship Specialty Start Date End Date John Diaz MD [address] [place] [address] PCP - General 12/22/14 07/18/21 documented as of this encounter
--- OUTSIDE RECORDS SUMMARY | 2024-05-02 14:00 | XMS_ITS | Encounter Summary ---
Author Organization [facility] Address [facility] [place] [address] Care Team Providers Care Methods Engineer Name Role Phone Buddy Hicks MD Primary Care Provider Reason for Visit * Reason Onset Date Comments Medication Refill 12/08/2013 Encounter Details Date Type Department Care Team (Late st Contact Info) Description 12/08/2013 Refill Family Medicine at [facility] [address] [place] [phone] Buddy Hicks MD [facility] [place] [address] Hypertension; Hypothyroid Social History Tobacco Use Types Packs/Day [...] encounter Miscellaneous Notes * Telephone Encounter - Disha Zhao - 12/08/2013 11:11 AM EDT Pt only has today for hyroxy script Thank you, Disha documented in this encounter Plan of Treatment Upcoming Encounters Date Type Department Care Team (Late st Contact Info) Description 05/29/2024 2:00 PM EDT Office Visit Cardiology at [address] [address] Estiven Raza MD [facility] [place] [address] documented as of this encounter Visit Diagnoses Diagnosis Hypertension Unspecified essential hypertension Hypothyroid Unspecified hypothyroidism documented in this encounter Care Teams Methods Engineer Relationship Specialty Start Date End Date Buddy Hicks MD [facility] [address] [place] [address] PCP - General 02/13/12 07/21/14 documented as of this encounter
--- OUTSIDE RECORDS SUMMARY | 2024-05-02 14:00 | XMS_ITS | Encounter Summary ---
Author Organization [facility] Address [facility] [place] [address] Care Team Providers Care Pharmaceutical Sales Specialist Name Role Phone John Diaz MD Primary Care Provider [phone] Reason for Visit * Reason Comments Medication Refill Encounter Details Date Type Department Care Team (Late st Contact Info) Description 02/26/2015 Refill Family Medicine at [facility] [address] [place] [address] Buddy Hicks MD [facility] [place] [address] Social History Tobacco Use Types Packs/Day Years [...] PM EDT Office Visit Cardiology at [address] [address] Estiven Raza MD [facility] [place] [address] documented as of this encounter Visit Diagnoses Not on filedocumented in this encounter Care Teams Pharmaceutical Sales Specialist Relationship Specialty Start Date End Date John Diaz MD [address] [place] [address] PCP - General 12/22/14 07/18/21 documented as of this encounter
--- OUTSIDE RECORDS SUMMARY | 2024-05-02 14:00 | XMS_ITS | Encounter Summary ---
Author Organization [facility] Address [facility] [place] [address] Care Team Providers Care Stagecraft Professor Name Role Phone Buddy Hicks MD Primary Care Provider Reason for Visit * Reason Onset Date Comments Medication Refill 10/31/2013 Encounter Details Date Type Department Care Team (Late st Contact Info) Description 10/31/2013 Refill Family Medicine at [facility] [address] [place] [address] Buddy Hicks MD [facility] [address] [facility] [place] [address] Social History Tobacco Use Types Packs/Day Years [...] PM EDT Office Visit Cardiology at [address] [address] Estiven Raza MD [facility] [place] [address] documented as of this encounter Visit Diagnoses Not on filedocumented in this encounter Care Teams Stagecraft Professor Relationship Specialty Start Date End Date Buddy Hicks MD [facility] [address] [place] [address] PCP - General 02/13/12 07/21/14 documented as of this encounter
--- OUTSIDE RECORDS SUMMARY | 2024-05-02 14:00 | XMS_ITS | Encounter Summary ---
Author Organization [facility] Address [facility] [place] [address] Care Team Providers Care Senior Electrical Estimator Name Role Phone Gabby Castaneda SUDHAKAR Primary Care Provider [phone] Reason for Visit * Reason Comments Medication Refill Encounter Details Date Type Department Care Team (Late st Contact Info) Description 09/08/2015 Refill Family Medicine at [facility] [address] [place] [address] Buddy Hicks MD [facility] [address] [facility] [place] [address] Social History Tobacco Use Types Packs/Day Years [...] 2:00 PM EDT Office Visit Cardiology at [address] [address] Estiven Raza MD [facility] [place] [address] documented as of this encounter Visit Diagnoses Not on filedocumented in this encounter Care Teams Senior Electrical Estimator Relationship Specialty Start Date End Date Gabby Castaneda APRN [address] [place] [address] PCP - General Family Medicine 07/19/21 04/30/23 documented as of this encounter
--- OUTSIDE RECORDS SUMMARY | 2024-05-02 14:00 | XMS_ITS | Encounter Summary ---
Author Organization [facility] Address [facility] [place] [address] Care Team Providers Care Community Association Manager Name Role Phone Flaco Diaz MD Primary Care Provider [phone] Reason for Visit * Reason Comments Referral Encounter Details Date Type Department Care Team (Late st Contact Info) Description 12/22/2014 12:45 PM EDT Office [place] [address] Jaleesa Sawyer MD [facility] [place] [address] SLE (systemic lupus erythematosus) Discharge Disposition: Home Social History Tobacco Use [...] Sign Reading Time Taken Comments Blood Pressure 142/53 12/22/2014 12:33 PM EDT Pulse 63 12/22/2014 12:33 PM EDT Temperature 36.7 ??C (98 ??F) 12/22/2014 12:33 PM EDT Respiratory Rate - - Oxygen Saturation 96% 12/22/2014 12:33 PM EDT Inhaled Oxygen Concentration - - Weight 72.6 kg (160 lb) 12/22/2014 12:33 PM EDT Height 152.4 cm (5') 12/22/2014 12:33 PM EDT Body Mass Index 31.25 12/22/2014 12:33 PM EDT documented in this encounter Progress Notes * Jaleesa Sawyer MD - 12/22/2014 12:40 PM EDT Rheumatology Outpatient Consultation Note Reason for Consult: The patient is seen at the request of Dr. FLACO DIAZ MD for evaluation and treatment of SLE. Rheum Hx: # SLE - discoid rash, photosensitivity, and possible relationship to her seizures - on hydroxychloroquine 200mg daily - BISI/SSB positive History of Present Illness: Thanh Gonzalez is a 64 y.o. female with COPD, CKD, HTN, hypothyroid, and seizure disorder, and SLEwho presents today to re-establish care of her SLE. She was previously followed by Dr. Wilson for years, and was last seen in August 2011. Thanh reports that generally she has been doing fairly well. She tends to have facial flushing when she overheats or when she drinks alcohol, which takes hoursto resolve. Her daughter has rosacea. She denies any rashes that are persistent or related to sun exposure. She denies any mouth sores or nasal sores. She has a prior area of alopecia but nothing new. She continues to have symptoms related to her COPD - she is using the combivent but is not using the advair. Thanh doesn't know if she has any seizures - she has a hx of absence seizures. Thanh has a treadmill, but she doesn't use it very often. She has been trying to walk outside more. ROS: General (-)fevers, (-)chills, (-)night sweats, (-)wt loss HEENT (-)vision change, (+)sometimes conjunctival redness, (-)epistaxis, (- )bleeding gums, (-)sore throat, (-)oral ulcers, (-)dry eyes, (-)dry mouth CVS (+)chest pain with anxiety, (-)palpitations, (-)pedal edema Pulm (-)shortness of breath, (+)RODRIGUEZ - with hills, (+)wheezes, (-)cough, (- )pleuritic pain GI (-)abdominal pain, (-)N/V, (+)diarrhea occasionally with nervousness/thai food/gravy, (-)hematochezia/melena (-)hematuria, (-)dysuria, (-)frequency MS (-)muscle weakness, +occasional knee/hip pain with changes in position (gelling phenomenon) Endo (+)thyroid disorders, (-)diabetes Neuro (-)focal weakness, (-)paresthesias, (-)gait instability, (-)vertigo Skin (+)Raynaud's - maybe?, (-)rash - none recently, (+)hair loss, (+)photo sensitivity Psych (-)mood disorder. Patient's medications, allergies, past medical, surgical, social and family histories were reviewedand updated as appropriate. Problem list: Patient Active Problem List Diagnosis Code ??? Alopecia 704.00 ??? Osteopenia 733.90 ??? Adult ADHD 314.01 ??? Anxiety 300.00 ??? COPD (chronic obstructive pulmonary disease) 496 ??? Hypertension 401.9 ??? Insomnia 780.52 ??? Seizure disorder 345.90 ??? Systemic lupus erythematosus 710.0 ??? Hypothyroid 244.9 ??? Hx of adenomatous colonic polyps V12.72 Family Hx: Daughter has hypothyroid (-)RA, (-)lupus, (-)scleroderma, (-)sjogren's, (-)gout, (-)psoriasis, (-)MS Social History: Lives in [place], [place]. She has 5 children. She has 3 grandchildren. She has 2 children who live in [place]. She has 3 boys who live with her - they work in the area. Thanh's boyfriend 2 years ago from heart disease. Tobacco - quit 10 years ago Etoh - has a beer once in a while Drugs - none Physical Examination: BP 142/53 Pulse 63 Temp(Src) 36.7 ??C (98 ??F) (Oral) Ht 152.4 cm (5') Wt 72.576 kg (160 lb) BMI 31.25 kg/m2 SpO2 96% General: AAOx3, NAD HEENT: Mucous membranes are moist, no oral mucosal ulcerations Skin: (-)ulcers, (-)rash. A few telangiectasias on facial skin - ?rosacea. Neck: Supple, no lymphadenopathy, full range of motion. Soft tissue/skin-colored nodule on right anterior aspect of neck Cardiovascular: RRR, (-)murmurs, rubs, or gallops. Lungs: Clear to auscultation bilaterally. No w/r/r. Abdomen: Soft, nontender, nondistended, normal active bowel sounds, no hepatosplenomegaly. Back: Nontender over the spine and costovertebral angles bilaterally. Neuro: Alert and oriented x3. Cranial nerves II through XII grossly intact. Sensation to light touch is grossly normal throughout. Patellar DTRs are 2+. Extremities: Shoulders: FROM, non-tender to palpation Elbows:FROM, (-)pain, (-)nodules Wrists: FROM, no swelling, non-tender Hands: No synovitis, no MCP compression tenderness, full claw and fist. Right 5th PIP flexion contracture, a few early heberdens. Knees: (-)effusions, non-tender ROM Ankles: FROM, non-tender, no swelling Laboratory Data: None since 2010 Studies: None since 2012 Impression: Thanh Gonzalez is a 64 y.o. female with COPD, hx of seizures, [...] C3/C4, UA with micro, prot/cre ratio) - check antiphospholipid antibodies - f/u annually CC: FLACO DIAZ MD documented in this encounter Plan of Treatment Upcoming Encounters Date Type Department Care Team (Late st Contact Info) Description 05/29/2024 2:00 PM EDT Office Visit Cardiology at [address] [address] Estiven Raza MD [facility] [place] [address] documented as of this encounter Procedures Procedure Name Priority Date/Time Associated Diagnosis Comments PROTEIN/CREATININE RATIO, URINE Routine 12/22/2014 2:22 PM EDT SLE (systemic lupus erythematosus) URINALYSIS WITH REFLEX CULTURE Routine 12/22/2014 2:22 PM EDT SLE (systemic lupus erythematosus) DNA ANTIBODY (DOUBLE-STRANDED) Routine 12/22/2014 1:50 PM EDT SLE (systemic lupus erythematosus) LUPUS ANTICOAGULANT Routine 12/22/2014 1 :50 PM EDT SLE (systemic lupus erythematosus) HEMOGRAM Routine 12/22/2014 1:50 PM EDT SLE (systemic lupus erythematosus) DIFFERENTIAL, AUTOMATED Routine 12/22/2014 1:50 PM EDT SLE (systemic lupus erythematosus) BETA-2 GLYCOPROTEIN ANTIBODIES Routine 12/22/2014 1:50 PM EDT SLE (systemic lupus erythematosus) CARDIOLIPIN ANTIBODY SCREEN Routine 12/22/2014 1:50 PM EDT SLE (systemic lupus erythematosus) CBC (WITH DIFF) Routine 12/22/2014 1:50 PM EDT SLE (systemic lupus erythematosus) C3 COMPLEMENT Routine 12/22/2014 1:50 PM EDT SLE (systemic lupus erythematosus) C4 COMPLEMENT Routine 12/22/2014 1:50 PM EDT SLE (systemic lupus erythematosus) COMPREHENSIVE METABOLIC PANEL Routine 12/22/2014 1:50 PM EDT SLE (systemic lupus erythematosus) documented in this encounter Results * Protein/Creatinine Ratio, urine (12/22/2014 2:22 PM EDT) Creatinine, Urine 65 mg/dL CERNER MILLENNIUM Protein, Urine <6 0 - 12 mg/dL CERNER MILLENNIUM Protein / Creatinine Ratio, Urine <0.1 ratio CERNER MILLENNIUM Urine specimen (specimen) 12/22/2014 2:22 PM EDT 12/22/2014 2:33 PM EDT Narrative Resulting Agency Comment Spec In Lab Jaleesa Sawyer MD URINE ORDERABLES CERNER MILLENNIUM * (ABNORMAL) Urinalysis with microscopic (12/22/2014 2:22 PM EDT) Glucose, Urine Dipstick Negative Negative mg/dL CERNER MILLENNIUM Protein, Urine Dipstick Negative Negative mg/dL CERNER MILLENNIUM Bilirubin, Urine Dipstick Negative Negative mg/dL CERNER MILLENNIUM Comment: Clinical correlation required for positive Urine Bilirubin results as false positive may occur with some drugs and drug related products. If a false positive is suspected a serum total bilirubin should be considered if clinically indicated. Urobilinogen, Urine Dipstick Normal Normal mg/dL CERNER MILLENNIUM pH, Urn (dipstick) 7.0 5.0 - 8.0 CERNER MILLENNIUM Blood, Urine Dipstick Negative Negative mg/dL CERNER MILLENNIUM Ketone, Urine Dipstick Negative Negative mg/dL CERNER MILLENNIUM Nitrite, Urine Dipstick Negative Negative CERNER MILLENNIUM Leukocytes, Urine Dipstick Moderate(A) Negative mcL CERNER MILLENNIUM Appearance, Urine Dipstick Clear Clear CERNER MILLENNIUM Specific [place] Urine Automated 1.009 1.002 - 1.030 CERNER MILLENNIUM Color, Urine Dipstick Straw Yellow CERNER MILLENNIUM RBC, Urine <1 0 - 4 /HPF CERNER MILLENNIUM WBC, Urine 2 0 - 5 /HPF CERNER MILLENNIUM Squamous Epithelial Cells, Urine 1 <=4 /HPF CERNER MILLENNIUM Urine specimen (specimen) 12/22/2014 2:22 PM EDT 12/22/2014 2:33 PM EDT Narrative Resulting Agency Comment Spec In Lab Jaleesa Sawyer MD URINE ORDERABLES Performing Organization Address City/[facility]/ZIP Co de Phone Number CERNER MILLENNIUM * Differential, Automated (12/22/2014 1:50 PM EDT) Neutrophil % 55.4 % CERNER MILLENNIUM Neutrophil Absolute 4.16 1.50 - 6.30 x10(3)/mcL CERNER MILLENNIUM Lymph % 33.5 % CERNER MILLENNIUM Lymphocytes Abs 2.5 1.0 - 3.6 x10(3)/mcL CERNER MILLENNIUM Monocyte % 6.4 % CERNER MILLENNIUM Monocyte Abs 0.5 0.2 - 1.0 x10(3)/mcL CERNER MILLENNIUM Eos % 3.7 % CERNER MILLENNIUM Eosinophils Abs 0.3 0.0 - 0.5 x10(3)/mcL CERNER MILLENNIUM Basophil % 0.7 % CERNER MILLENNIUM Baso Absolute 0.0 0.0 - 0.2 x10(3)/mcL CERNER MILLENNIUM Immature Gran % 0.30 % CERN ER MILLENNIUM Comment: Immature granulocytes(IG's)percentage and absolute count will include metamyelocytes, myelocytes, and promyelocytes. Blood smears from CBCs yielding IG's will be scanned manually for concordance. If this scan disagrees with the automated IG or if promyelocytes are noted, a manual differential will be performed. Immature Gran Absolute 0.02 0.00 - 0.05 x10(3)/mcL CERNER MILLENNIUM Blood specimen (specimen) 12/22/2014 1:50 PM EDT 12/22/2014 1:59 PM EDT Narrative Resulting Agency Comment Spec In Lab Jaleesa Sawyer MD HEMATOLOGY ORDERABLE S CERNER MILLENNIUM * Hemogram (12/22/2014 1:50 PM EDT) White Blood Cell 7.5 4.0 - 10.0 x10(3)/mcL CERNER MILLENNIUM Red Blood Cell 4.91 3.93 - 5.22 x10(6)/mcL CERNER MILLENNIUM Hemoglobin 14.7 11.2 - 15.7 gm/dL CERNER MILLENNIUM Hematocrit 43.8 34.0 - 45.0 % CERNER MILLENNIUM Mean Cell Volume 89.2 79.0 - 94.0 fL CERNER MILLENNIUM Mean Cell Hemoglobin 29.9 26.6 - 32.2 pg CERNER MILLENNIUM Mean Cell Hemoglobin Concentration 33.6 32.0 - 36.5 gm/dL CERNER MILLENNIUM Platelet 285 145 - 370 x10(3)/mcL CERNER MILLENNIUM RDW Standard Deviation 40.2 35.0 - 46.0 fL CERNER MILLENNIUM RDW coefficient of variation 12.5 10.9 - 14.4 % CERNER MILLENNIUM Mean Platelet Volume 11.1 9.0 - 12.0 fL CERNER MILLENNIUM Blood specimen (specimen) 12/22/2014 1:50 PM EDT 12/22/2014 1:59 PM EDT Narrative Resulting Agency Comment Spec In Lab Jaleesa Sawyer MD HEMATOLOGY ORDERABLE S [facility] * (ABNORMAL) Cardiolipin Antibody Screen (12/22/2014 1:50 PM EDT) Cardiolipin Antibody IgG <23 <=22 GPL unit(s) CERNER MILLENNIUM Comment: Ranges ? GPL ------- ? ------ Normal ?<23 Low Positive ? 23-35 Moderate Positive ?36-50 High Positive ? >50 Cardiolipin Antibody IgM 50(H) <=10 MPL unit(s) CERNER MILLENNIUM Comment: Ranges ?MPL ----- ?----- Normal ?<11 Low Positive ? 11-20 Moderate Positive ?21-30 High Positive ? >30 Blood specimen (specimen) 12/22/2014 1:50 PM EDT 12/23/2014 8:08 AM EDT Narrative Resulting Agency Comment Spec In Lab Jaleesa Sawyer MD IMMUNOLOGY ORDERABLE S [facility] * Beta-2 glycoprotein antibodies (12/22/2014 1:50 PM EDT) Beta 2 Glycoprotein, IgG <21 <=20 unit(s) [facility] Comment: Ranges ?Units ----- ? ----- Normal ? <21 Low Positive (+) ?21-50 Moderate Positive (+) ? 51-100 High Positive (+) ?>100 Beta 2 Glycoprotein, IgM <21 <=20 unit(s) [facility] Comment: Ranges ? Units ----- ?----- Normal ?<21 Low Positive (+) ? 21-50 Moderate Positive (+) ?51-100 High Positive (+) ? >100 B2GPI Interp No comment [facility] Blood specimen (specimen) 12/22/2014 1:50 PM EDT 12/23/2014 8:08 AM EDT Narrative Resulting Agency Comment Spec In Lab Jaleesa Sawyer MD [facility] S [facility] * Lupus Anticoagulant (12/22/2014 1:50 PM EDT) Pathologist [facility] Lupus Anticoagulant Neg Neg [facility] Blood specimen (specimen) 12/22/2014 1:50 PM EDT 12/22/2014 1:59 PM EDT Narrative Resulting Agency Comment Spec In Lab Jaleesa Sawyer MD [facility]OLOGY [facility]ABLE S [facility] * (ABNORMAL) Comprehensive metabolic panel (non-fasting) (12/22/2014 1:50 PM EDT) Pathologist [facility] Glucose 86 60 - 199 mg/dL [facility] MILLENNIUM Comment:Diabetes: >=200 mg/d L plus symptoms Blood Urea Nitrogen 13 8 - 18 mg/dL [facility] MILLENNIUM Creatinine 1.50(H) 0.70 - 1.20 mg/dL [facility] Comment: Please note that the pediatric reference intervals supplied above were not validated at [facility]. Results from pediatric patients should be interpreted in conjunction to the patient's age, height and muscle mass. Sodium 140 135 - 145 mmol/L [facility] MILLENNIUM Potassium 3.9 3.5 - 5.0 mmol/L [facility] Comment: Please note: ??Patients with WBC >100,000 may have falsely elevated Potassium levels. ??For accurate Potassium quantification in these patients send serum separator tube (gold top) for subsequent determinations. ??Contact the Clinical Chemistry Laboratory if there are any questions. Chloride 98 98 - 107 mmol/L CERNER MILLENNIUM Carbon Dioxide 29 22 - 31 mmol/L [facility]ERN[facility] MILLENNIUM Anion Gap 13 5 - 15 mmol/L [facility]ERN[facility] MILLENNIUM Calcium 9.2 8.5 - 10.5 mg/dL [facility] MILLENNIUM Protein, Total 7.0 6.1 - 8.0 gm/dL [facility]ERN[facility] MILLENNIUM Albumin 4.2 3.2 - 5.2 gm/dL [facility]ERNER MILLENNIUM Aspartate Aminotransferase 19 0 - 30 unit/L [facility]ERNER MILLENNIUM Alanine Aminotransferase 17 0 - 30 unit/L [facility] MILLENNIUM Alkaline Phosphatase 71 40 - 104 unit/L [facility]ERN[facility] MILLENNIUM Bilirubin, Total 0.3 0.2 - 1.3 mg/dL [facility]ERN[facility] MILLENNIUM Bilirubin, Direct 0.1 0.0 - 0.3 mg/dL CERNER MILLENNIUM Est Glomerular Filtration Rate 35(L) >=60 CERNER MILLENNIUM Comment: This estimated GFR (eGFR) value was calculated using the MDRD equation which has been validated on patients between the ages of 18 and 70. The MDRD should not be used to assess kidney function in patients < 18 years of age or in patients with extremes of body mass, or in patients with acute kidney failure. This value should be multiplied by 1.2 for patients. For further information please copy and paste the following links into your internet browser. [email or web address]/DHnkdep [email or web address] Blood specimen (specimen) 12/22/2014 1:50 PM EDT 12/22/2014 1:59 PM EDT Narrative Resulting Agency Comment Spec In Lab Jaleesa Sawyer MD CHEMISTRY ORDERABLES [facility] * C3 Complement (12/22/2014 1:50 PM EDT) Complement C3 120 90 - 180 mg/dL CERNER MILLENNIUM Blood specimen (specimen) 12/22/2014 1:50 PM EDT 12/22/2014 1:59 PM EDT Narrative Resulting Agency Comment Spec In Lab Jaleesa Sawyer MD CHEMISTRY ORDERABLES Performing Organization Address City/[facility]/ZIP Co de Phone Number [facility] * C4 Complement (12/22/2014 1:50 PM EDT) Complement C4 26 10 - 40 mg/dL [facility] Blood specimen (specimen) 12/22/2014 1:50 PM EDT 12/22/2014 1:59 PM EDT Narrative Resulting Agency Comment Spec In Lab Jaleesa Sawyer MD CHEMISTRY ORDERABLES Performing Organization Address [facility] Co de Phone Number [facility] * DNA Antibody (Double-Stranded) (12/22/2014 1:50 PM EDT) DNA Ab (DS) Neg Neg [facility] Blood specimen (specimen) 12/22/2014 1:50 PM EDT 12/23/2014 8:08 AM EDT Narrative Resulting Agency Comment Spec In Lab Jaleesa Sawyer MD LAB SEND OUT ORDERAB LES Performing Organization Address [facility] Co de Phone Number [facility] documented in this encounter Visit Diagnoses Diagnosis SLE (systemic lupus erythematosus) Systemic lupus erythematosus documented in this encounter Care Teams Community Association Manager Relationship Specialty Start Date End Date Flaco Diaz MD [address] [place] [address] PCP - General 12/22/14 07/18/21 documented as of this encounter
--- OUTSIDE RECORDS SUMMARY | 2024-05-02 14:00 | XMS_ITS | Encounter Summary ---
Author Organization [facility] Address [facility] [place] [address] Care Team Providers Care 911 Dispatcher Name Role Phone John Diaz MD Primary Care Provider [phone] Encounter Details Date Type Department Care Team (Latest Contact Info) Description 02/05/2017 - 02/05/2017 11:59 PM EDT Hospital Encounter Radiology Library at [facility] [place] [address] Dionte Chavez MD [facility] [place] [place] [address] Discharge Disposition: Home Social History Tobacco Use [...] 2:00 PM EDT Office Visit Cardiology at [address] [address] Estiven Raza MD [facility] [place] [address] documented as of this encounter Procedures Procedure Name Priority Date/Time Associated Diagnosis Comments FILM LIBRARY STORAGE ONLY DX CHEST Routine 02/05/2017 12:00 AM EDT documented in this encounter Results * Film Library- Storage Only DX Chest (02/05/2017 12:00 AM EDT) Narrative [facility] - 03/06/2018 9:10 AM EDT This exam is for storage only and is auto-finalizing. Dionte Chavez MD IM FILM LIBRARY ORD ERABLES [place], [place] documented in this encounter Visit Diagnoses Not on filedocumented in this encounter Care Teams 911 Dispatcher Relationship Specialty Start Date End Date John Diaz MD [address] [place] [address] PCP - General 12/22/14 07/18/21 documented as of this encounter
--- OUTSIDE RECORDS SUMMARY | 2024-05-02 14:00 | XMS_ITS | Encounter Summary ---
Author Organization [facility] Address [facility] [address] [facility] [place] [address] Care Team Providers Care Data Compiler Name Role Phone Buddy Hicks MD Primary Care Provider [phone] Encounter Details Date Type Department Care Team (Late st Contact Info) Description 02/02/2014 Refill Family Medicine at [facility] [address] [place] [id number] Buddy Hicks MD [facility] [place] [address] Social History Tobacco Use Types Packs/Day Years [...] Telephone Encounter - Aniya Ceja LPN - 02/04/2014 10:15 AM EDT rx faxed to pharmacy * Telephone Encounter - Araseli Tubbs - 02/02/2014 10:34 AM EDT Pt states she is out of this medication. Advised patient of 72 business hour refill policy. documented in this encounter Plan of Treatment Upcoming Encounters Date Type Department Care Team (Late st Contact Info) Description 05/29/2024 2:00 PM EDT Office Visit Cardiology at [address] [address] Estiven Raza MD [facility] [place] [address] documented as of this encounter Visit Diagnoses Not on filedocumented in this encounter Care Teams Data Compiler Relationship Specialty Start Date End Date Buddy Hicks MD [facility] [address] [facility] [place] [address] PCP - General 02/13/12 07/21/14 documented as of this encounter
--- OUTSIDE RECORDS SUMMARY | 2024-05-02 14:00 | XMS_ITS | Encounter Summary ---
Author Organization Formerly [facility], [facility] Address [facility] [place] [address] Care Team Providers Care Analyst Market Intelligence Name Role Phone John Diaz MD Primary Care Provider [phone] Reason for Visit * Reason Comments Left Leg Pain Back Pain * Consultation (Routine) - Closed Specialty Diagnoses / Procedures Referred By Contac t Referred To Contact Orthopaedics Diagnoses low back pain w/ left sided sciatica/severe narrowing related to epidural lipomatosis/ MRI in [facility] (no report) Jaleesa Sawyer MD [facility] [place] [address] [facility] [place] [address] [place] [address] Referral ID Status Reason Start Date Expiration Date V isits Requested Visits Authorized [id number] Closed Consult, Test & Treat 10/26/2017 10/26/2018 1 1 Encounter Details Date Type Department Care Team (Late st Contact Info) Description 11/02/2017 1:20 PM EDT Office [place] [address] Nitesh Ortega PA [facility] [address] [place] [address] Spinal stenosis of lumbar region with radiculopathy; Epidural lipomatosis Social History Tobacco Use Types Packs/Day Years [...] Progress Notes * Nitesh Ortega PA - 11/02/2017 1:20 PM EDT Thanh Gonzalez is a 66-year-old female, with several months of progressive back and more significantly left lower extremity pain that goes over her left buttock, left posterior thigh and lower leg. This is more problematic for her when she stands and walks for prolonged periods and she has good relief with sitting, and leaning forward. She has a sense of her left leg being weak at times but otherwise no fixed motor or sensory loss. She also finds walking uphill can be a challenge. She mentionsnot taking systemic steroids in any long- term basis but she does take inhaled corticosteroids with her Combivent. Denies prior spine surgery. She has not had recent treatment. She otherwise has system ic lupus erythematosus. She denies tobacco use patient alcohol occasionally. On exam today, this is a pleasant overweight, BMI 29, 66-year-old female appears her stated age andis in no acute distress. She ambulates with a forward based gait. The walking heel walking is without weakness. She stands without evidence of obvious spinal deformity. Her motor and sensory examination does not show focal weakness or sensory loss. Her reflexes are symmetrically brisk at both kneesand both ankles. No clonus or Babinski noted. Palpable peripheral pulses. Painless hip range of motion. Reviewed her MRI of the lumbar spine from 10/2017. This was significant for evidence of epidural lipomatosis causing severe central canal stenosis at the L4-L5 and L5-S1 levels. There is advanced degeneration of the L4-L5, and otherwise a broad-based disc bulge at L5-S1. Assessment/plan: Thanh Gonzalez is a 66-year-old female seen today for chief complaint of progressive left lower extremity pain with features of pseudoclaudication, in the context of epidural lipomatosis with spinal stenosis L4-L5, L5-S1. She is not especially obese, so we are more suspicious towards exogenous steroids being the cause of her epidural lipomatosis. She does not take oral steroids but appears to take inhaled corticosteroids with her Combivent inhaler for her COPD. At present, she would like to continue further care with physical therapy which she will be doing locally. We discussed follow-up in about 2 months to monitor her progress. At that point, we can consider injection procedures, although we cannot really give her a series of multiple epidural steroidal injections as this can exacerbate her epidural lipomatosis. She does appear to be interested in surgery however, which I confirmed with Alexys Han MD would be plan for decompression L4 through S1. documented in this encounter Plan of Treatment Upcoming Encounters Date Type Department Care Team (Late st Contact Info) Description 05/29/2024 2:00 PM EDT Office Visit Cardiology at [address] [address] Estiven Raza MD [facility] [place] [address] Scheduled Referrals Name Type Priority Associated Diagnoses Orde r Schedule Referral to Spine Center Outpatient Referral Routine Chronic bilateral low back pain with left-sided sciatica Ordered: 10/26/2017 documented as of this encounter Visit Diagnoses Diagnosis Spinal stenosis of lumbar region with radiculopathy Spinal stenosis, lumbar region, without neurogenic claudication Epidural lipomatosis Lipoma of other specified sites documented in this encounter Care Teams Analyst Market Intelligence Relationship Specialty Start Date End Date John Diaz MD [address] [place] [address] PCP - General 12/22/14 07/18/21 documented as of this encounter
--- OUTSIDE RECORDS SUMMARY | 2024-05-02 14:00 | XMS_ITS | Encounter Summary ---
Author Organization [facility] Address [facility] [place] [address] Care Team Providers Care Validation Specialist Name Role Phone Buddy Hicks MD Primary Care Provider [phone] Reason for Visit * Reason Comments Medication Refill Encounter Details Date Type Department Care Team (Late st Contact Info) Description 05/25/2014 Refill Family Medicine at [facility] [address] [place] [address] Buddy Hicks MD [facility] [place] [address] Social History Tobacco Use Types Packs/Day Years [...] Telephone Encounter - Faith Simmons RN - 05/25/2014 9:14 AM EDT Request from Kalie on behalf of pt for a refill of [id number]-[id number]. Request sent to provider for signature and refill as appropriate. documented in this encounter Plan of Treatment Upcoming Encounters Date Type Department Care Team (Late st Contact Info) Description 05/29/2024 2:00 PM EDT Office Visit Cardiology at [address] [address] Estiven Raza MD [facility] [place] [address] documented as of this encounter Visit Diagnoses Not on filedocumented in this encounter Care Teams Validation Specialist Relationship Specialty Start Date End Date Buddy Hicks MD [facility] [place] [address] PCP - General 02/13/12 07/21/14 documented as of this encounter
--- OUTSIDE RECORDS SUMMARY | 2024-05-02 14:00 | XMS_ITS | Encounter Summary ---
[place] [address] Care Team Providers Care Banquet Chef Name Role Phone John Diaz MD Primary Care Provider [phone] Reason for Visit * Reason Onset Date Comments Other 01/05/2015 results Encounter Details Date Type Department Care Team (Late st Contact Info) Description 01/05/2015 Telephone [place] [phone] Tawanna Demarco RN Other (results) Social History Tobacco Use Types Packs/Day Years [...] encounter Miscellaneous Notes * Telephone Encounter - Tawanna Demarco RN - 01/05/2015 11:50 AM EDT Thanh called Dr. Sawyer back today. Relayed Dr. Sawyer's message from earlier today regarding labs. Thanh would like lab orders faxed to [facility]. documented in this encounter Plan of Treatment Upcoming Encounters Date Type Department Care Team (Late st Contact Info) Description 05/29/2024 2:00 PM EDT Office Visit Cardiology at [address] [address] Estiven Raza MD [facility] [place] [address] documented as of this encounter Visit Diagnoses Not on filedocumented in this encounter Care Teams Banquet Chef Relationship Specialty Start Date End Date John Diaz MD [address] [place] [address] PCP - General 12/22/14 07/18/21 documented as of this encounter
--- OUTSIDE RECORDS SUMMARY | 2024-05-02 14:00 | XMS_ITS | Encounter Summary ---
Author Organization [facility] Address [facility] [place] [address] Care Team Providers Care Thread Winder Name Role Phone Buddy Hicks MD Primary Care Provider [phone] Reason for Visit * Reason Onset Date Comments Medication Refill 01/02/2014 Encounter Details Date Type Department Care Team (Late st Contact Info) Description 12/31/2013 Refill Family Medicine at [facility] [address] [place] [address] Buddy Hicks MD [facility] [place] [address] Social History Tobacco Use Types Packs/Day Years [...] Telephone Encounter - Heidy Escobar RN - 01/02/2014 10:41 AM EDT Lorazepam faxed to [facility] [place] * Telephone Encounter - Araseli Tubbs - 12/31/2013 12:50 PM EDT Pt states she is out of the lorazepam. documented in this encounter Plan of Treatment Upcoming Encounters Date Type Department Care Team (Late st Contact Info) Description 05/29/2024 2:00 PM EDT Office Visit Cardiology at [address] [address] Estiven Raza MD [facility] [place] [address] documented as of this encounter Visit Diagnoses Not on filedocumented in this encounter Care Teams Thread Winder Relationship Specialty Start Date End Date Buddy Hicks MD [facility] [place] [address] PCP - General 02/13/12 07/21/14 documented as of this encounter
--- OUTSIDE RECORDS SUMMARY | 2024-05-02 14:00 | XMS_ITS | Encounter Summary ---
Author Organization [facility] Address [facility] [place] [address] Care Team Providers Care Used Car Lot Porter Name Role Phone Buddy Hicks MD Primary Care Provider [phone] Reason for Visit * Reason Onset Date Comments Medication Refill 06/23/2014 Encounter Details Date Type Department Care Team (Late st Contact Info) Description 06/23/2014 Refill Family Medicine at [facility] [address] [place] [address] Araseli Tubbs Anxiety; Insomnia Social History Tobacco Use Types [...] Miscellaneous Notes * Telephone Encounter - Faith Moser RN - 06/25/2014 3:27 PM EST Chart reviewed. Script prepped and pended for provider review. * Telephone Encounter - Araseli Tubbs - 06/23/2014 2:31 PM EST Pt states she only has one pill left, did advise of 72 bus hr fill policy, thank you documented in this encounter Plan of Treatment Upcoming Encounters Date Type Department Care Team (Late st Contact Info) Description 05/29/2024 2:00 PM EDT Office Visit Cardiology at [address] [address] Estiven Raza MD [facility] [place] [address] documented as of this encounter Visit Diagnoses Diagnosis Anxiety Anxiety state, unspecified Insomnia Insomnia, unspecified documented in this encounter Care Teams Used Car Lot Porter Relationship Specialty Start Date End Date Buddy Hicks MD [facility] [address] [facility] [place] [address] PCP - General 02/13/12 07/21/14 documented as of this encounter
--- OUTSIDE RECORDS SUMMARY | 2024-05-02 14:00 | XMS_ITS | Encounter Summary ---
Author Organization [facility] Address [facility] [place] [address] Care Team Providers Care Website Developer Name Role Phone Unknown Primary Care Provider Unavailabl e Reason for Visit * Reason Onset Date Comments Medication Refill 07/23/2014 Encounter Details Date Type Department Care Team (Late st Contact Info) Description 07/23/2014 Refill Family Medicine at [facility] [address] [place] [address] Regla Simmons Anxiety; Insomnia Social History Tobacco Use Types [...] encounter Miscellaneous Notes * Telephone Encounter - Kailey Peralta RN - 07/27/2014 3:50 PM EST Lorazepam [place] [facility] [place], . Lorazepam 1mg tablet, 1 tablet as HS as needed for sleep. May take 1 tablet during the day for anxiety if needed. Qty: 30 Refill 0 Original Rx ripped up and destroyed in front of Anastasiya Victoria CMA documented in this encounter Plan of Treatment Upcoming Encounters Date Type Department Care Team (Late st Contact Info) Description 05/29/2024 2:00 PM EDT Office Visit Cardiology at [address] [address] Estiven Raza MD [facility] [place] [address] documented as of this encounter Visit Diagnoses Diagnosis Anxiety Anxiety state, unspecified Insomnia Insomnia, unspecified documented in this encounter Care Teams Website Developer Relationship Specialty Start Date End Date Unknown None PCP - General 07/22/14 12/21/14 documented as of this encounter
--- OUTSIDE RECORDS SUMMARY | 2024-05-02 14:00 | XMS_ITS | Encounter Summary ---
Author Organization [facility] [place] [address] Care Team Providers Care Radiation Protection Engineer Name Role Phone Buddy Hikcs MD Primary Care Provider [phone] Encounter Details Date Type Department Care Team (Late st Contact Info) Description 05/05/2014 Telephone Internal Medicine at [facility] [address] [place] [phone] Nury Coronel, [facility] Social History Tobacco Use Types Packs/Day Years [...] * Telephone Encounter - Disha Zhao - 05/05/2014 3:06 PM EDT Patient returning Nury's call Notified patient that she should have labs done SARANYA as pt has appt on Sunday with Dr. Hicks Pt asked to have orders sent to [facility] in [place], [place]. Called [facility] - sent orders to fax number [phone] Attn: Anushka/Miguelito and attached lacey to fax orders back to call center fax number when results are in. Called pt to notify her that orders have been sent. Thank you, Disha * Telephone Encounter - KimoNury small - 05/05/2014 1:26 PM EDT Called pt, no answer, left message to have her call back at [phone]. Pt needs to have TSH labsdone as soon as she can. documented in this encounter Plan of Treatment Upcoming Encounters Date Type Department Care Team (Late st Contact Info) Description 05/29/2024 2:00 PM EDT Office Visit Cardiology at [address] [address] Estiven Raza MD [facility] [place] [address] documented as of this encounter Visit Diagnoses Not on filedocumented in this encounter Care Teams Radiation Protection Engineer Relationship Specialty Start Date End Date Buddy Hicks MD [facility] [address] [facility] [address] PCP - General 02/13/12 07/21/14 documented as of this encounter
--- OUTSIDE RECORDS SUMMARY | 2024-05-02 14:00 | XMS_ITS | Encounter Summary ---
Author Organization [facility] Address [facility] [place] [address] Care Team Providers Care Nozzle Tender Name Role Phone Buddy Hicks MD Primary Care Provider Reason for Visit * Reason Onset Date Comments Medication Refill 11/28/2013 Encounter Details Date Type Department Care Team (Late st Contact Info) Description 11/28/2013 Refill Family Medicine at [facility] [address] [place] [address] Buddy Hicks MD [facility] [place] [address] Social History Tobacco Use Types Packs/Day Years [...] Miscellaneous Notes * Telephone Encounter - Aicha Byrd RN - 11/28/2013 4:09 PM EDT Rx for Ativan faxed to pharmacy documented in this encounter Plan of Treatment Upcoming Encounters Date Type Department Care Team (Late st Contact Info) Description 05/29/2024 2:00 PM EDT Office Visit Cardiology at [address] [address] Estiven Raza MD [facility] [place] [address] documented as of this encounter Visit Diagnoses Not on filedocumented in this encounter Care Teams Nozzle Tender Relationship Specialty Start Date End Date Buddy Hicks MD [facility] [address] [facility] [place] [address] PCP - General 02/13/12 07/21/14 documented as of this encounter
--- OUTSIDE RECORDS SUMMARY | 2024-05-02 14:00 | XMS_ITS | Encounter Summary ---
Author Organization [facility] Address [facility] [place] [address] Care Team Providers Care Chair Mechanic Name Role Phone Buddy Hicks MD Primary Care Provider [phone] Reason for Visit * Reason Onset Date Comments Medication Refill 04/08/2014 Encounter Details Date Type Department Care Team (Late st Contact Info) Description 04/08/2014 Refill Family Medicine at [facility] [address] [place] [address] Araseli Tubbs Social History Tobacco Use Types Packs/Day Years [...] encounter Miscellaneous Notes * Telephone Encounter - Xochitl Mehta - 05/04/2014 11:22 AM EDT Appointment scheduled for 05/08 w/ Dr. Hicks * Telephone Encounter - Aniya Suh LPN - 04/17/2014 8:17 AM EDT rx faxed to pharmacy documented in this encounter Plan of Treatment Upcoming Encounters Date Type Department Care Team (Late st Contact Info) Description 05/29/2024 2:00 PM EDT Office Visit Cardiology at [address] [address] Estiven Raza MD [facility] [place] [address] documented as of this encounter Visit Diagnoses Not on filedocumented in this encounter Care Teams Chair Mechanic Relationship Specialty Start Date End Date Buddy Hicks MD [facility] [place] [place] [address] PCP - General 02/13/12 07/21/14 documented as of this encounter
--- OUTSIDE RECORDS SUMMARY | 2024-05-02 14:00 | XMS_ITS | Encounter Summary ---
Author Organization [facility] [place] [address] Care Team Providers Care Circulator Name Role Phone Buddy Hicks MD Primary Care Provider Encounter Details Date Type Department Care Team (Late st Contact Info) Description 01/26/2014 Refill Family Medicine at [facility] [address] [place] [address] Niecy Romero COPD (chronic obstructive pulmonary disease) (Primary Dx) Social History Tobacco Use Types [...] encounter Miscellaneous Notes * Telephone Encounter - Niecy Zuluaga - 01/26/2014 12:20 PM EDT Doesn't have an inhaler right now. Please fill as soon as possible. Thank you. documented in this encounter Plan of Treatment Upcoming Encounters Date Type Department Care Team (Late st Contact Info) Description 05/29/2024 2:00 PM EDT Office Visit Cardiology at [address] [address] Estiven Raza MD [facility] [place] [address] documented as of this encounter Visit Diagnoses Diagnosis COPD (chronic obstructive pulmonary disease)- Primary Chronic airway obstruction, not elsewhere classified documented in this encounter Care Teams Circulator Relationship Specialty Start Date End Date Buddy Hicks MD [facility] [place] [address] PCP - General 02/13/12 07/21/14 documented as of this encounter
--- OUTSIDE RECORDS SUMMARY | 2024-05-02 14:00 | XMS_ITS | Encounter Summary ---
Author Organization [place] [address] Care Team Providers Care Roads Supervisor Name Role Phone Buddy Hicks MD Primary Care Provider [phone] Reason for Visit * Reason Onset Date Comments Referral 05/19/2014 Encounter Details Date Type Department Care Team (Late st Contact Info) Description 05/19/2014 Telephone Family Medicine at [facility] [address] [place] [address] Araseli Tubbs Referral Social History Tobacco Use Types Packs/Day [...] encounter Miscellaneous Notes * Telephone Encounter - Araseli Tubbs - 05/27/2014 4:00 PM EDT . documented in this encounter Plan of Treatment Upcoming Encounters Date Type Department Care Team (Late st Contact Info) Description 05/29/2024 2:00 PM EDT Office Visit Cardiology at [address] [phone] Estiven Raza MD [facility] [place] [address] Scheduled Orders Name Type Priority Associated Diagnoses Orde r Schedule Mammo digital bilateral Screening with CAD Imaging Routine Screening mammogram for high-risk patient Expected: 05/19/2014 (Approximate), Expires: 09/16/2014 documented as of this encounter Visit Diagnoses Diagnosis Screening mammogram for high-risk patient- Primary documented in this encounter Care Teams Roads Supervisor Relationship Specialty Start Date End Date Buddy Hicks MD [facility] [place] [address] PCP - General 02/13/12 07/21/14 documented as of this encounter
--- OUTSIDE RECORDS SUMMARY | 2024-05-02 14:00 | XMS_ITS | Encounter Summary ---
Author Organization [facility] Address [facility] [place] [address] Care Team Providers Care Shipper And Receiving Name Role Phone John Diaz MD Primary Care Provider [phone] Encounter Details Date Type Department Care Team (Late st Contact Info) Description 01/05/2015 Telephone [place] [address] Jaleesa Sawyer MD [facility] [place] [address] Social History Tobacco Use Types Packs/Day Years [...] encounter Miscellaneous Notes * Telephone Encounter - Jaleesa Sawyer MD - 01/05/2015 8:52 AM EDT 3rd attempt at reaching Thanh - left message today, could not leave message other times (no answering machine?) Labs show leukocytes in urine and elevated Cre up to 1.5. She denied UTI sxs at her recent visit 2 weeks ago, but would like to f/u with her on that. I think she should have her urine and kidney function (BMP and urine protein/cre ratio) repeated either at her primary care's office (which would be ideal as that is much closer), or we can fax a requisition (should be a clean catch urine) for it aquiles done this week. I've asked Thanh to call my nursing staff to discuss, and I will ask them to give her a call again later today as well. documented in this encounter Plan of Treatment Upcoming Encounters Date Type Department Care Team (Late st Contact Info) Description 05/29/2024 2:00 PM EDT Office Visit Cardiology at [address] [address] Estiven Raza MD [facility] [place] [address] documented as of this encounter Visit Diagnoses Not on filedocumented in this encounter Care Teams Shipper And Receiving Relationship Specialty Start Date End Date John Diaz MD [address] [place] [address] PCP - General 12/22/14 07/18/21 documented as of this encounter
--- OUTSIDE RECORDS SUMMARY | 2024-05-02 14:00 | XMS_ITS | Encounter Summary ---
Author Organization [facility] [place] [address] Care Team Providers Care Biomass Power Plant Manager Name Role Phone John Diaz MD Primary Care Provider [phone] Reason for Visit * Reason Onset Date Comments Other 01/06/2015 labs Encounter Details Date Type Department Care Team (Late st Contact Info) Description 01/06/2015 [place] [phone] Tawanna Demarco RN Other (labs) Social History Tobacco Use Types Packs/Day Years [...] Telephone Encounter - Tawanna Demarco RN - 01/14/2015 2:50 PM EDT So, this is an unclear culture result - bernardo implies contaminant. If she is not having symptoms I don't think we should treat and have her see her PCP in a week to repeat the test. But if she is having any symptoms at all perhaps we would treat with an antibiotic. Called Thanh and relayed Dr. Sawyer's message above. Thanh will follow up with Dr. Diaz. She is not having any UTI symptoms at this time. * Telephone Encounter - Tawanna Demarco RN - 01/12/2015 3:11 PM EDT Called Thanh and let her know the u/a showed WBC and leukocytes as the last one done here did. Told her we are still waiting for the urine culture. She asked what that is. Explained to her. She is very worried that she may have something wrong with her kidneys. Told her continuity writer will ask Dr. Sawyer'ssecretary to see if she can locate culture results. * Telephone Encounter - Tawanna Demarco RN - 01/12/2015 11:10 AM EDT Thanh called and left message that she had her labs done at [facility] last week. She would like to knowthe results. * Telephone Encounter - Tawanna Demarco RN - 01/06/2015 3:46 PM EDT Thanh called late yesterday afternoon and left message asking if she should be worried about the labs that have to be repeated being off. Called Thanh today and reassured her that there is no emergency, Dr. Sawyer noted an abnormality and wants to pursue it. Thanh verbalized understanding and will go have labs drawn tomorrow at [facility]. She also wanted Dr. Sawyer to know how much she liked her and l ooks forward to upcoming visits with her. She says Dr. Sawyer explained everything very well to her.Told Thanh we were happy to hear that and message will be passed on to her. Let her know we will keep an eye out for her results and call as soon as we have them. She said she would appreciate that. documented in this encounter Plan of Treatment Upcoming Encounters Date Type Department Care Team (Late st Contact Info) Description 05/29/2024 2:00 PM EDT Office Visit Cardiology at [address] [address] Estiven Raza MD [facility] [address] documented as of this encounter Visit Diagnoses Not on filedocumented in this encounter Care Teams Biomass Power Plant Manager Relationship Specialty Start Date End Date John Diaz MD [address] [facility] 1 [place] [address] PCP - General 12/22/14 07/18/21 documented as of this encounter
--- OUTSIDE RECORDS SUMMARY | 2024-05-02 14:00 | XMS_ITS | Encounter Summary ---
Author Organization [facility] Address [facility] [place] [address] Care Team Providers Care [employer] [place] Name Role Phone Gabby Castaneda SUDHAKAR Primary Care Provider [phone] Reason for Visit * Reason Comments Medication Refill Encounter Details Date Type Department Care Team (Late st Contact Info) Description 02/25/2015 Refill Family Medicine at [facility] [address] [place] [address] Buddy Hicks MD [facility] [address] [place] [place] [address] Social History Tobacco Use Types Packs/Day Years [...] PM EDT Office Visit Cardiology at [address] [address] Estiven Raza MD [facility] [place] [place] [address] documented as of this encounter Visit Diagnoses Not on filedocumented in this encounter Care Teams Ceo [place] Relationship Specialty Start Date End Date Gabby Castaneda APRN [address] [place] [address] PCP - General Family Medicine 07/19/21 04/30/23 documented as of this encounter
--- OUTSIDE RECORDS SUMMARY | 2024-05-02 14:00 | XMS_ITS | Encounter Summary ---
Author Organization [facility] Address [facility] [place] [address] Care Team Providers Care Batch Tank Controller Name Role Phone Buddy Hicks MD Primary Care Provider [phone] Reason for Visit * Reason Comments Follow-up medication check up and blood pressure check Encounter Details Date Type Department Care Team (Late st Contact Info) Description 05/08/2014 9:05 AM EDT Follow-Up Family Medicine at [facility] [address] [place] [phone] Buddy Hicks MD [facility] [place] [address] Hypertension (Primary Dx); COPD (chronic obstructive pulmonary disease); Hypothyroid; Seizure disorder; Anxiety; Routine health maintenance Discharge Disposition: Home Social History Tobacco Use [...] Sign Reading Time Taken Comments Blood Pressure 153/51 05/08/2014 9:27 AM EDT Pulse 58 05/08/2014 9:27 AM EDT Temperature 36.5 ??C (97.7 ??F) 05/08/2014 9:27 AM ED T Respiratory Rate 20 05/08/2014 9:27 AM EDT Oxygen Saturation 97% 05/08/2014 9:27 AM EDT Inhaled Oxygen Concentration - - Weight 67 kg (147 lb 9.6 oz) 05/08/2014 9:27 AM EDT Height 153.4 cm (5' 0.39) 05/08/2014 9:27 AM ED T Body Mass Index 28.45 05/08/2014 9:27 AM EDT documented in this encounter Patient Instructions * Patient Instructions* Buddy Hicks MD - 05/08/2014 10:12 AM EDT High Blood Pressure: Untreated high blood pressure is a leading cause of heart attacks and strokes.We can lower your chance of having a heart attack or a stroke by making sure your blood pressure stays below 140/90. Your most recent pressure readings in our office were: BP Readings from Last 3 Encounters: 05/08/14 153/51 05/12/13 137/50 02/04/13 113/47 If these numbers are not yet below 140/90, we can work together to get them lower. Besides medications, other things that you can do to lower blood pressure include: eating less sodium (salt), drinking less alcohol, exercising regularly, and losing weight. Some people find that their blood pressure is better at home than it is in our office. If you wouldlike to check your blood pressure at home, I would recommend that you get a blood pressure monitor with the following features: 1) a cuff that fits over your upper arm (not your wrist or finger). If your upper arm is very large, you may have to special order a cuff that fits 2) is self-inflating 3) can be plugged into the wall (so you don't have to worry about whether the batteries are good). If you buy a monitor, please save the receipt until you can have your monitor checked for accuracy in our office. You can do that at your appointment with me, or you can schedule an appointment with a nurse for a blood pressure check. (Most stores will refund your money if you return the monitor within 30 days of the purchase date.) Increase Triamterene-Hydrochlorothiazide to 1 pill every morning. Increase Advair to 1 puff twice a day. Do not use Combivent unless you are having trouble breathing. (Use if when you need it, but don't use it if you don't need it.) Please bring your blood pressure monitor to your daniele't in 3 mos. Please schedule the following: - mammogram at [facility] - Pap smear with Dr. Suarez. - colonoscopy with Dr. Solis documented in this encounter Progress Notes * Buddy Hicks MD - 05/08/2014 9:33 AM EDT Assessment/Plan A: HTN: not at goal on Dyazide 1/2 tab (18.75/12.5). BMP at [facility] on 05/05 WNL except GFR 50 - incr Dyazide to 1 tab (37.5/25) - f/u 3 mos w/ BP monitor A: CKD: GFR 50 at [facility] on 05/05, compared to 60 at [facility] in Nov 2012. - repeat BMP next visit. Consider add/change to ANTHONY-I for renal protection if decr GFR confirmed. A: COPD: no longer seeing Dr. Albarran in [place], but also decided not to f/u w/ Pulm at [facility]. 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 A: hypothyroid: TSH WNL on 05/05. A: anxiety/insomnia/benzo dependence: PHQ9 = 5. Reports she is doing well on Citalopram 20 mg qd and Lorazepam 1 mg qhs. Occas takes add'l 1 mg during the day (~ 1x/mos). Acknowledge she has been grieving the loss of her partner Apollo in February 2013, but feels she is now starting to engage in the world again. A: h/o colonic adenoma: tubular adenoma [place] [facility] [place]. Dr. Solis rec repeat in 5 yr. - pt will sched colonoscopy w/ Dr. Solis A: RHM: No record of Td or Pneumovax in records from prev PCP in [facility]. Pap neg Sep 2008. (RHM per Dr. Suarez in [place].) - Pneumovax and Flu vaccine given today - needs Tdap next visit - pt will sched saul in [place] and Pap w/ Dr. Suarez. Subjective for f/u HTN, COPD, depression. BP's on her monitor: 151-161/50's-60's. Monitor has not been validated. Takes 1/2 tab Maxide qam. Reports good adherence w/ all meds. Does not note any urinary freq or urgency. Neg nocturia. COPD: currently taking Advair 250/50 1 puff qam, Combivent 1 puff tid, and takes Albuterol prn (0-3x/day, perhaps 4D/wk). Feels her breathing is stable on this regimen. (Not great, but not bad.) Not sure if she needs Combivent tid, but reports that's how she was instr by Dr. Albarran to use it. Sometimes misses afternoon dose, and doesn't notice any sig worsening of breathing. Anxiety controlled on Citalopram 20 mg qd and Lorazepam 1 mg qhs. Occas takes add'l 1 mg during theday (~ 1x/mos). Labs done at [facility] in [facility] 2 days ago. Patient Active Problem List Diagnosis Code ??? Alopecia 704.00 ??? Depression 311 ??? Osteopenia 733.90 ??? Adult ADHD 314.01 ??? Anxiety 300.00 ??? COPD (chronic obstructive pulmonary disease) 496 ??? Hypertension 401.9 ??? Insomnia 780.52 ??? Seizure disorder 345.90 ??? Systemic lupus erythematosus 710.0 ??? Hypothyroid 244.9 Social Hx Social History Narrative Apr 2012: lives in [place], [place] (N of [facility]) partner: Apollo Dumont (juan. 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 mows lawn, uses weedwhacker Objective BP 153/51 Pulse 58 Temp 36.5 ??C (97.7 ??F) (Oral) Resp 20 Ht 153.4 cm (5' 0.39) Wt 66.951 kg (147 lb 9.6 oz) BMI 28.45 kg/m2 SpO2 97% recheck BP: 170/64 Gen: NAD Lungs: CTA, w/ sl decr BS Cor: RRR @ 56, nl s1s2, w/o m Ext: neg edema Please see Assessment/Plan at beginning of note. documented in this encounter Plan of Treatment Upcoming Encounters Date Type Department Care Team (Late st Contact Info) Description 05/29/2024 2:00 PM EDT Office Visit Cardiology at [address] [address] Estiven Raza MD [facility] [place] [address] documented as of this encounter Visit Diagnoses Diagnosis Hypertension- Primary Unspecified essential hypertension COPD (chronic obstructive pulmonary disease) Chronic airway obstruction, not elsewhere classified Hypothyroid Unspecified hypothyroidism Seizure disorder Unspecified epilepsy without mention of intractable epilepsy Anxiety Anxiety state, unspecified Routine health maintenance Routine general medical examination at a health care facility documented in this encounter Care Teams Batch Tank Controller Relationship Specialty Start Date End Date Buddy Hicks MD [facility] [address] [place] [address] PCP - General 02/13/12 07/21/14 documented as of this encounter
--- OUTSIDE RECORDS SUMMARY | 2024-05-02 14:00 | XMS_ITS | Encounter Summary ---
Author Organization [facility] Address [facility] [place] [address] Care Team Providers Care Traditional Maori Health Practitioner Name Role Phone John Diaz MD Primary Care Provider [phone] Encounter Details Date Type Department Care Team (Latest Contact Info) Description 01/07/2018 - 01/07/2018 11:59 PM EDT Hospital Encounter Radiology Library at [facility] [place] [address] Dionte Chavez MD [facility] [place] [address] Discharge Disposition: Home Social History Tobacco Use [...] daily as needed. 2 each 11 12/31/2013 triamterene-hydrochlor othiazide (DYAZIDE) 37.5-25 mg Capsule daily. 12/26/2017 PROAIR HFA 90 mcg/actuation HFA Aerosol Inhaler [...] 2:00 PM EDT Office Visit Cardiology at [address] [address] Estiven Raza MD [facility] [place] [address] documented as of this encounter Procedures Procedure Name Priority Date/Time Associated Diagnosis Comments FILM LIBRARY STORAGE ONLY DX CHEST Routine 01/07/2018 12:00 AM EDT documented in this encounter Results * Film Library- Storage Only DX Chest (01/07/2018 12:00 AM EDT) Narrative BRIELLE LAI - 03/06/2018 9:11 AM EDT This exam is for storage only and is auto-finalizing. Dionte Chavez MD IMG FILM LIBRARY ORD ERABLES [place], [place] documented in this encounter Visit Diagnoses Not on filedocumented in this encounter Care Teams Traditional Maori Health Practitioner Relationship Specialty Start Date End Date John Diaz MD [address] [place] [address] PCP - General 12/22/14 07/18/21 documented as of this encounter
--- OUTSIDE RECORDS SUMMARY | 2024-05-02 14:00 | XMS_ITS | Encounter Summary ---
Author Organization [facility] Address [facility] [place] [address] Care Team Providers Care Beam House Inspector Name Role Phone John Diaz MD Primary Care Provider [phone] Reason for Visit * Reason Comments Medication Refill Encounter Details Date Type Department Care Team (Late st Contact Info) Description 02/12/2015 Refill Family Medicine at [facility] [address] [place] [address] Buddy Hicks MD [facility] [place] [address] Social History Tobacco Use Types Packs/Day Years [...] encounter Miscellaneous Notes * Telephone Encounter - Krisatl Lee - 02/15/2015 8:16 AM EDT Left message to call office and schedule an office visit there is a reminder in the system * Telephone Encounter - Buddy Hicks MD - 02/12/2015 4:18 PM EDT Please contact pt to sched daniele't for f/u HTN (has mult other issues). Next avail 40 min. Thanks * Telephone Encounter - Faith Simmons RN - 02/12/2015 3:47 PM EDT Last office visit on 05-19-14. Please notify exit school attendance secretary if pt needs to be seen in Primary Care for an appt. Request initially denied via [place] because provider not assoc w/ this practice but on chart review primary provider is Dr. Buddy Hicks with this practice. Routed to Dr. Buddy Hikcs to be approved/edited/changed/deleted prn. Thank you. documented in this encounter Plan of Treatment Upcoming Encounters Date Type Department Care Team (Late st Contact Info) Description 05/29/2024 2:00 PM EDT Office Visit Cardiology at [address] [address] Estiven Raza MD [facility] [place] [address] documented as of this encounter Visit Diagnoses Not on filedocumented in this encounter Care Teams Beam House Inspector Relationship Specialty Start Date End Date John Diaz MD [address] [facility] 1 [place] [address] PCP - General 12/22/14 07/18/21 documented as of this encounter
--- OUTSIDE RECORDS SUMMARY | 2024-05-02 14:00 | XMS_ITS | Encounter Summary ---
[place] [address] Care Team Providers Care Strap Cutting Machine Operator Name Role Phone Buddy Hicks MD Primary Care Provider [phone] Reason for Visit * Reason Onset Date Comments Medication Refill 05/19/2014 Encounter Details Date Type Department Care Team (Late st Contact Info) Description 05/19/2014 Refill Family Medicine at [facility] [address] [place] [phone] Araseli Tubbs Social History Tobacco Use Types [...] encounter Miscellaneous Notes * Telephone Encounter - Makenzie Condon RN - 05/26/2014 3:25 PM EDT Lorazepam called into pharmacy documented in this encounter Plan of Treatment Upcoming Encounters Date Type Department Care Team (Late st Contact Info) Description 05/29/2024 2:00 PM EDT Office Visit Cardiology at [address] [address] Estiven Raza MD [facility] [place] [address] documented as of this encounter Visit Diagnoses Not on filedocumented in this encounter Care Teams Strap Cutting Machine Operator Relationship Specialty Start Date End Date Buddy Hicks MD [facility] [address] [place] [address] PCP - General 02/13/12 07/21/14 documented as of this encounter
--- OUTSIDE RECORDS SUMMARY | 2024-05-02 14:00 | XMS_ITS | Encounter Summary ---
Author Organization [facility] Address [facility] [address] [facility] [place] [address] Care Team Providers Care Change Management Director Name Role Phone Gabby Castaneda SUDHAKAR Primary Care Provider [phone] Reason for Visit * Reason Comments Medication Refill Encounter Details Date Type Department Care Team (Late st Contact Info) Description 02/11/2015 Refill Family Medicine at [facility] [address] [place] [address] Buddy Hicks MD [facility] [place] [address] Social History Tobacco Use Types Packs/Day Years [...] encounter Miscellaneous Notes * Telephone Encounter - Trudy Bustos MA - 02/11/2015 8:04 AM EDT Pt last seen 05/08/14. Rx pended for 90 day supply 3 refills. documented in this encounter Plan of Treatment Upcoming Encounters Date Type Department Care Team (Late st Contact Info) Description 05/29/2024 2:00 PM EDT Office Visit Cardiology at [address] [address] Estiven Raza MD [facility] [place] [address] documented as of this encounter Visit Diagnoses Not on filedocumented in this encounter Care Teams Change Management Director Relationship Specialty Start Date End Date Gabby Castaneda APRN [address] [place] [address] [address] [facility] 1 [place] [address] PCP - General Family Medicine 07/19/21 04/30/23 documented as of this encounter
--- OUTSIDE RECORDS SUMMARY | 2024-05-02 14:01 | XMS_ITS | Encounter Summary ---
Author Organization [facility] Address [facility] [place] [address] Care Team Providers Care Campus Safety Officer Name Role Phone Buddy Hicks MD Primary Care Provider Reason for Visit * Reason Onset Date Comments Medication Refill 03/12/2012 Encounter Details Date Type Department Care Team (Late st Contact Info) Description 03/12/2012 Ref[place] [phone] Jaswinder Casas MD [facility] [place] [address] COPD (chronic obstructive pulmonary disease) Social History Tobacco Use Types Packs/Day Years Used Date Smoking Tobacco: Former Cigarettes 0 02/16/1975 - 02/16/2005 Smokeless Tobacco: Never [...] PM EDT Office Visit Cardiology at [address] [phone] Estiven Raza MD [facility] [place] [address] documented as of this encounter Visit Diagnoses Diagnosis COPD (chronic obstructive pulmonary disease) Chronic airway obstruction, not elsewhere classified documented in this encounter Care Teams Campus Safety Officer Relationship Specialty Start Date End Date Buddy Hicks MD [facility] [address] [facility] [place] [address] PCP - General 02/13/12 07/21/14 documented as of this encounter
--- OUTSIDE RECORDS SUMMARY | 2024-05-02 14:01 | XMS_ITS | Encounter Summary ---
Author Organization [facility] Address [facility] [place] [address] Care Team Providers Care Unified Communications Engineer Name Role Phone Buddy Hicks MD Primary Care Provider [phone] Reason for Visit * Reason Onset Date Comments Medication Refill 04/29/2012 Encounter Details Date Type Department Care Team (Late st Contact Info) Description 04/29/2012 Refill Family Medicine [facility] [place] [address] Buddy Hicks MD [facility] [address] [facility] [place] [address] Hypertension (Primary Dx) Social History Tobacco Use Types [...] encounter Miscellaneous Notes * Telephone Encounter - Bruna Fuchs LPN - 04/30/2012 9:55 AM EDT Caled patient regarding need to have labs drawn. She has appointment here on May 06, and will do the labwork then documented in this encounter Plan of Treatment Upcoming Encounters Date Type Department Care Team (Late st Contact Info) Description 05/29/2024 2:00 PM EDT Office Visit Cardiology at [address] [address] Estiven Raza MD [facility] [place] [address] documented as of this encounter Visit Diagnoses Diagnosis Hypertension- Primary Unspecified essential hypertension documented in this encounter Care Teams Unified Communications Engineer Relationship Specialty Start Date End Date Buddy Hicks MD [facility] [address] [place] [address] PCP - General 02/13/12 07/21/14 documented as of this encounter
--- OUTSIDE RECORDS SUMMARY | 2024-05-02 14:01 | XMS_ITS | Encounter Summary ---
Author Organization [facility] Address [facility] [place] [address] Care Team Providers Care Inspector Set Up And Lay Out Name Role Phone Buddy Hicks MD Primary Care Provider [phone] Reason for Visit * Reason Onset Date Comments Medication Refill 07/29/2012 Encounter Details Date Type Department Care Team (Late st Contact Info) Description 07/29/2012 Refill Family Medicine at [facility] [address] [place] [phone] Buddy Hicks MD [facility] [place] [address] Social History Tobacco Use Types Packs/Day Years [...] Telephone Encounter - Aniya Ceja LPN - 07/29/2012 2:12 PM EST Pt reminded of requested blood draw and order faxed to [facility] per pt request. documented in this encounter Plan of Treatment Upcoming Encounters Date Type Department Care Team (Late st Contact Info) Description 05/29/2024 2:00 PM EDT Office Visit Cardiology at [address] [address] Estiven Raza MD [facility] [place] [address] documented as of this encounter Visit Diagnoses Not on filedocumented in this encounter Care Teams Inspector Set Up And Lay Out Relationship Specialty Start Date End Date Buddy Hicks MD [facility] [address] [place] [address] PCP - General 02/13/12 07/21/14 documented as of this encounter
--- OUTSIDE RECORDS SUMMARY | 2024-05-02 14:01 | XMS_ITS | Encounter Summary ---
Author Organization [facility] Address [facility] [place] [address] Care Team Providers Care Soils Technician Name Role Phone Buddy Hicks MD Primary Care Provider Encounter Details Date Type Department Care Team (Late st Contact Info) Description 05/14/2013 External Results XRay at [address] [place] [address] Provider, Scanning Social History Tobacco Use Types [...] PM EDT Office Visit Cardiology at [address] [place] [phone] Estiven Raza MD [facility] [address] documented as of this encounter Procedures Procedure Name Priority Date/Time Associated Diagnosis Comments DIAGNOSTIC RADIOLOGY SCAN Routine 08/30/2012 DIAGNOSTIC RADIOLOGY SCAN Routine 06/17/2012 DIAGNOSTIC RADIOLOGY SCAN Routine 06/17/2012 DIAGNOSTIC RADIOLOGY SCAN Routine 09/01/2009 DIAGNOSTIC RADIOLOGY SCAN Routine 05/31/2009 DIAGNOSTIC RADIOLOGY SCAN Routine 11/26/2007 documented in this encounter Results * Scan Doc: Diagnostic Radiology (08/30/2012) Anatomical Region Laterality Modality Other Scanning Provider MEDIA MGR SCAN EXT O RDR/RSLT * Scan Doc: Diagnostic Radiology (06/17/2012) Anatomical Region Laterality Modality Other Scanning Provider MEDIA MGR SCAN EXT O RDR/RSLT * Scan Doc: Diagnostic Radiology (06/17/2012) Anatomical Region Laterality Modality Other Scanning Provider MEDIA MGR SCAN EXT O RDR/RSLT * Scan Doc: Diagnostic Radiology (09/01/2009) Anatomical Region Laterality Modality Other Scanning Provider MEDIA MGR SCAN EXT O RDR/RSLT * Scan Doc: Diagnostic Radiology (05/31/2009) Anatomical Region Laterality Modality Other Scanning Provider MEDIA MGR SCAN EXT O RDR/RSLT * Scan Doc: Diagnostic Radiology (11/26/2007) Anatomical Region Laterality Modality Other Scanning Provider MEDIA MGR SCAN EXT O RDR/RSLT documented in this encounter Visit Diagnoses Not on filedocumented in this encounter Care Teams Soils Technician Relationship Specialty Start Date End Date Buddy Hicks MD [facility] [place] [address] PCP - General 02/13/12 07/21/14 documented as of this encounter
--- OUTSIDE RECORDS SUMMARY | 2024-05-02 14:01 | XMS_ITS | Encounter Summary ---
Author Organization [facility] Address [facility] [place] [address] Care Team Providers Care Ornamental Iron Worker Name Role Phone Buddy Hicks MD Primary Care Provider [phone] Reason for Visit * Reason Onset Date Comments Medication Problem 07/10/2012 Encounter Details Date Type Department Care Team (Late st Contact Info) Description 07/10/2012 Refill Family Medicine at [facility] [address] [place] [phone] Buddy Hicks MD [facility] [place] [address] Social History Tobacco Use Types Packs/Day Years [...] Telephone Encounter - Aniya Ceja LPN - 07/16/2012 8:29 AM EST rx faxed to pharmacy * Telephone Encounter - Corby Finch - 07/15/2012 10:55 AM EST The patient called stating that she needs someone to call Kalie Leblanc in [place] to straighten out the problem with her Lorazepam. States that she got 7 pills on 07/10. She has 2 left. She states that she takes 1 to 1 1/2 at bedtime. If she needs too she take 1 during the day. Any questions please call patient - [phone]. Thanks Corby Shearer documented in this encounter Plan of Treatment Upcoming Encounters Date Type Department Care Team (Late st Contact Info) Description 05/29/2024 2:00 PM EDT Office Visit Cardiology at [address] [address] Estiven Raza MD [facility] [place] [address] documented as of this encounter Visit Diagnoses Not on filedocumented in this encounter Care Teams Ornamental Iron Worker Relationship Specialty Start Date End Date Buddy Hicks MD [facility] [address] [place] [address] PCP - General 02/13/12 07/21/14 documented as of this encounter
--- OUTSIDE RECORDS SUMMARY | 2024-05-02 14:01 | XMS_ITS | Encounter Summary ---
Author Organization [facility] Address [facility] [place] [address] Care Team Providers Care Regional Retail Sales Manager Name Role Phone Buddy Hicks MD Primary Care Provider [phone] Encounter Details Date Type Department Care Team (Late st Contact Info) Description 08/30/2012 Orders [place] [phone] Amy Dewey MD [facility] [place] [address] Social History Tobacco Use Types Packs/Day Years [...] PM EDT Office Visit Cardiology at [address] [phone] Estiven Raza MD [facility] [place] [address] documented as of this encounter Procedures Procedure Name Priority Date/Time Associated Diagnosis Comments FILM LIBRARY STORAGE ONLY DX CHEST Routine 08/30/2012 3:14 PM EST documented in this encounter Results * Film Library- Storage only DX Chest (08/30/2012 3:14 PM EST) 08/30/2012 3:14 PM EST Narrative RAD - 02/17/2014 10:40 AM EDT This is a non-reportable exam. Procedure Note Noel Elizabeth - 02/17/2014 This is a non-reportable exam. Amy Dewey MD IMG FILM LIBRARY ORDERABLES RAD [address] [place] [address] documented in this encounter Visit Diagnoses Not on filedocumented in this encounter Care Teams Regional Retail Sales Manager Relationship Specialty Start Date End Date Buddy Hicks MD [facility] [address] [place] [address] PCP - General 02/13/12 07/21/14 documented as of this encounter
--- OUTSIDE RECORDS SUMMARY | 2024-05-02 14:01 | XMS_ITS | Encounter Summary ---
Author Organization [facility] Address [facility] [place] [address] Care Team Providers Care Marine Resource Economist Name Role Phone Buddy Hicks MD Primary Care Provider [phone] Reason for Visit * Reason Onset Date Comments Medication Refill 10/22/2012 Encounter Details Date Type Department Care Team (Late st Contact Info) Description 10/22/2012 Refill Family Medicine at [facility] [address] [place] [address] Buddy Hicks MD [facility] [place] [address] Social History Tobacco Use Types Packs/Day Years [...] PM EDT Office Visit Cardiology at [address] [phone] Estiven Raza MD [facility] [place] [address] documented as of this encounter Visit Diagnoses Not on filedocumented in this encounter Care Teams Marine Resource Economist Relationship Specialty Start Date End Date Buddy Hicks MD [facility] [place] [address] PCP - General 02/13/12 07/21/14 documented as of this encounter
--- OUTSIDE RECORDS SUMMARY | 2024-05-02 14:01 | XMS_ITS | Encounter Summary ---
Author Organization [facility] Address [facility] [place] [address] Care Team Providers Care Food Operations Manager Name Role Phone Buddy Hicks MD Primary Care Provider [phone] Reason for Visit * Reason Onset Date Comments Medication Refill 12/16/2012 Encounter Details Date Type Department Care Team (Late st Contact Info) Description 12/16/2012 Refill Family Medicine at [facility] [address] [place] [phone] Buddy Hicks MD [facility] [place] [address] Social History Tobacco Use Types Packs/Day Years [...] Telephone Encounter - Aniya Ceja LPN - 12/18/2012 8:26 AM EDT rx faxed to pharmacy * Telephone Encounter - Ambar Rogers - 12/16/2012 9:50 AM EDT Pt called needs refill on Lorazapam. Thank you. documented in this encounter Plan of Treatment Upcoming Encounters Date Type Department Care Team (Late st Contact Info) Description 05/29/2024 2:00 PM EDT Office Visit Cardiology at [address] [address] Estiven Raza MD [facility] [place] [address] documented as of this encounter Visit Diagnoses Not on filedocumented in this encounter Care Teams Food Operations Manager Relationship Specialty Start Date End Date Buddy Hicks MD [facility] [address] [place] [address] PCP - General 02/13/12 07/21/14 documented as of this encounter
--- OUTSIDE RECORDS SUMMARY | 2024-05-02 14:01 | XMS_ITS | Encounter Summary ---
Author Organization [facility] Address [facility] [place] [address] Care Team Providers Care Production Editor Name Role Phone Buddy Hicks MD Primary Care Provider [phone] Reason for Visit * Reason Comments Medication Refill Encounter Details Date Type Department Care Team (Late st Contact Info) Description 11/24/2012 Refill Family Medicine [facility] [place] [address] Buddy Hicks MD [facility] [address] [place] [place] [address] Social History Tobacco Use Types Packs/Day Years [...] PM EDT Office Visit Cardiology at [address] [place] [address] Estiven Raza MD [facility] [place] [address] documented as of this encounter Visit Diagnoses Not on filedocumented in this encounter Care Teams Production Editor Relationship Specialty Start Date End Date Buddy Hicks MD [facility] [address] [place] [address] PCP - General 02/13/12 07/21/14 documented as of this encounter
--- OUTSIDE RECORDS SUMMARY | 2024-05-02 14:01 | XMS_ITS | Encounter Summary ---
Author Organization [facility] Address [place] [address] Care Team Providers Care Foreign Car Mechanic Name Role Phone Buddy Hicks MD Primary Care Provider [phone] Encounter Details Date Type Department Care Team (Late st Contact Info) Description 10/28/2012 Refill Family Medicine at [facility] [address] [place] [phone] [place] [address] Social History Tobacco Use Types Packs/Day Years [...] Miscellaneous Notes * Telephone Encounter - Niecy Cuevas - 10/28/2012 11:16 AM EDT Please dispense 3 month supply with refills. Niecy Strickland documented in this encounter Plan of Treatment Upcoming Encounters Date Type Department Care Team (Late st Contact Info) Description 05/29/2024 2:00 PM EDT Office Visit Cardiology at [address] [address] Estiven Raza MD [facility] [place] [address] documented as of this encounter Visit Diagnoses Not on filedocumented in this encounter Care Teams Foreign Car Mechanic Relationship Specialty Start Date End Date Buddy Hicks MD [facility] [address] [place] [address] PCP - General 02/13/12 07/21/14 documented as of this encounter
--- OUTSIDE RECORDS SUMMARY | 2024-05-02 14:01 | XMS_ITS | Encounter Summary ---
Author Organization [facility] Address [facility] [place] [address] Care Team Providers Care House Father Name Role Phone Buddy Hicks MD Primary Care Provider Reason for Visit * Reason Onset Date Comments Medication Refill 05/22/2013 Encounter Details Date Type Department Care Team (Late st Contact Info) Description 05/22/2013 Refill Family Medicine at [facility] [address] [place] [phone] Buddy Hicks MD [facility] [place] [address] Social History Tobacco Use Types Packs/Day Years [...] Telephone Encounter - Aniya Ceja LPN - 05/22/2013 3:06 PM EDT rx faxed to pharmacy documented in this encounter Plan of Treatment Upcoming Encounters Date Type Department Care Team (Late st Contact Info) Description 05/29/2024 2:00 PM EDT Office Visit Cardiology at [address] [phone] Estiven Raza MD [facility] [place] [address] documented as of this encounter Visit Diagnoses Not on filedocumented in this encounter Care Teams House Father Relationship Specialty Start Date End Date Buddy Hicks MD [facility] [address] [place] [address] PCP - General 02/13/12 07/21/14 documented as of this encounter
--- OUTSIDE RECORDS SUMMARY | 2024-05-02 14:01 | XMS_ITS | Encounter Summary ---
Author Organization [facility] Address [facility] [place] [address] Care Team Providers Care Electronic Communications Technician Name Role Phone Buddy Hicks MD Primary Care Provider Encounter Details Date Type Department Care Team (Late st Contact Info) Description 05/12/2013 Telephone [place] [address] Amy Dewey MD [facility] [place] [address] Social History Tobacco Use Types Packs/Day Years [...] encounter Miscellaneous Notes * Telephone Encounter - Luis Eduardo Sidhu - 05/12/2013 3:53 PM EDT Please sign orders. documented in this encounter Plan of Treatment Upcoming Encounters Date Type Department Care Team (Late st Contact Info) Description 05/29/2024 2:00 PM EDT Office Visit Cardiology at [address] [address] Estiven Raza MD [facility] [place] [address] documented as of this encounter Visit Diagnoses Diagnosis COPD (chronic obstructive pulmonary disease)- Primary Chronic airway obstruction, not elsewhere classified documented in this encounter Care Teams Electronic Communications Technician Relationship Specialty Start Date End Date Buddy Hicks MD [facility] [address] [place] [address] PCP - General 02/13/12 07/21/14 documented as of this encounter
--- OUTSIDE RECORDS SUMMARY | 2024-05-02 14:01 | XMS_ITS | Encounter Summary ---
Author Organization [facility] Address [facility] [place] [address] Care Team Providers Care Straight Ruling Machine Operator Name Role Phone Buddy Hicks MD Primary Care Provider [phone] Reason for Visit * Reason Onset Date Comments Medication Refill 01/20/2013 Encounter Details Date Type Department Care Team (Late st Contact Info) Description 01/20/2013 Refill Family Medicine at [facility] [address] [place] [phone] Buddy Hicks MD [facility] [place] [address] Social History Tobacco Use Types Packs/Day Years [...] Telephone Encounter - Aniya Ceja LPN - 01/21/2013 8:17 AM EDT rx faxed to pharmacy documented in this encounter Plan of Treatment Upcoming Encounters Date Type Department Care Team (Late st Contact Info) Description 05/29/2024 2:00 PM EDT Office Visit Cardiology at [address] [address] Estiven Raza MD [facility] [place] [address] documented as of this encounter Visit Diagnoses Not on filedocumented in this encounter Care Teams Straight Ruling Machine Operator Relationship Specialty Start Date End Date Buddy Hicks MD [facility] [address] [place] [address] PCP - General 02/13/12 07/21/14 documented as of this encounter
--- OUTSIDE RECORDS SUMMARY | 2024-05-02 14:01 | XMS_ITS | Encounter Summary ---
Author Organization [facility] Address [facility] [place] [address] Care Team Providers Care Postal Mail Carrier Name Role Phone Buddy Hicks MD Primary Care Provider [phone] Reason for Visit * Reason Onset Date Comments Medication Problem 07/16/2012 Encounter Details Date Type Department Care Team (Late st Contact Info) Description 07/16/2012 Refill Family Medicine at [facility] [address] [place] [phone] Buddy Hicks MD [facility] [place] [address] Social History Tobacco Use Types Packs/Day Years [...] Encounter - Aniya Ceja LPN - 07/16/2012 9:43 AM EST Prescription read verbatim to pharmacist * Telephone Encounter - Renetta Robles - 07/16/2012 8:48 AM EST Please call kelli huang. Needs clarification on a medication. Please call [phone] documented in this encounter Plan of Treatment Upcoming Encounters Date Type Department Care Team (Late st Contact Info) Description 05/29/2024 2:00 PM EDT Office Visit Cardiology at [address] [address] Estiven Raza MD [facility] [place] [address] documented as of this encounter Visit Diagnoses Not on filedocumented in this encounter Care Teams Postal Mail Carrier Relationship Specialty Start Date End Date Buddy Hicks MD [facility] [address] [place] [address] PCP - General 02/13/12 07/21/14 documented as of this encounter
--- OUTSIDE RECORDS SUMMARY | 2024-05-02 14:01 | XMS_ITS | Encounter Summary ---
Author Organization [facility] [place] [place] [address] Care Team Providers Care Electrical Instrument Technician Name Role Phone Buddy Hicks MD Primary Care Provider [phone] Reason for Visit * Reason Onset Date Comments Medication Refill 05/14/2012 Encounter Details Date Type Department Care Team (Late st Contact Info) Description 05/14/2012 Refill Family Medicine [facility] [place] [address] Buddy Hicks MD [facility] [address] [facility] [place] [address] Social History Tobacco Use Types Packs/Day Years [...] Telephone Encounter - Aniya Ceja LPN - 05/16/2012 5:11 PM EDT rx faxed to pharmacy documented in this encounter Plan of Treatment Upcoming Encounters Date Type Department Care Team (Late st Contact Info) Description 05/29/2024 2:00 PM EDT Office Visit Cardiology at [address] [address] Estiven Raza MD [facility] [place] [address] documented as of this encounter Visit Diagnoses Not on filedocumented in this encounter Care Teams Electrical Instrument Technician Relationship Specialty Start Date End Date Buddy Hicks MD [facility] [address] [place] [address] PCP - General 02/13/12 07/21/14 documented as of this encounter
--- OUTSIDE RECORDS SUMMARY | 2024-05-02 14:01 | XMS_ITS | Encounter Summary ---
Author Organization [facility] Address [facility] [place] [address] Care Team Providers Care Steam Trap Worker Name Role Phone Buddy Hicks MD Primary Care Provider [phone] Reason for Visit * Reason Onset Date Comments Medication Refill 06/10/2012 Encounter Details Date Type Department Care Team (Late st Contact Info) Description 06/10/2012 Refill Family Medicine [facility] [place] [address] Buddy Hicks MD [facility] [address] [place] [address] Social History Tobacco Use Types Packs/Day Years [...] Telephone Encounter - Aniya Ceja LPN - 06/11/2012 4:24 PM EST rx called to pharmacy documented in this encounter Plan of Treatment Upcoming Encounters Date Type Department Care Team (Late st Contact Info) Description 05/29/2024 2:00 PM EDT Office Visit Cardiology at [address] [address] Estiven Raza MD [facility] [place] [address] documented as of this encounter Visit Diagnoses Not on filedocumented in this encounter Care Teams Steam Trap Worker Relationship Specialty Start Date End Date Buddy Hicks MD [facility] [place] [address] PCP - General 02/13/12 07/21/14 documented as of this encounter
--- OUTSIDE RECORDS SUMMARY | 2024-05-02 14:01 | XMS_ITS | Encounter Summary ---
Author Organization [facility] [place] [address] Care Team Providers Care Instructional Design Technologist Name Role Phone Alexys Morales MD Primary Care Provider [phone] Reason for Visit * Reason Onset Date Comments Medication Refill 12/27/2011 Encounter Details Date Type Department Care Team (Late st Contact Info) Description 12/27/2011 Refill Family [facility] [place] [address] Alexys Morales MD [facility] [place] [place] [address] Social History Tobacco Use Types Packs/Day Years [...] 2:00 PM EDT Office Visit Cardiology at [address] [address] Estiven Raza MD [facility] [place] [address] documented as of this encounter Visit Diagnoses Not on filedocumented in this encounter Care Teams Instructional Design Technologist Relationship Specialty Start Date End Date Alexys Morales MD [facility] [place] [address] PCP - General 06/28/10 02/12/12 documented as of this encounter
--- OUTSIDE RECORDS SUMMARY | 2024-05-02 14:01 | XMS_ITS | Encounter Summary ---
Author Organization Formerly [facility] Address [facility] [place] [address] Care Team Providers Care Broadcast Maintenance Engineer Name Role Phone Buddy Hicks MD Primary Care Provider [phone] Reason for Visit * Reason Comments Follow-up COPD followup; need prescription refill local or Dr Kenneth in [place] Rx albuterol sulfate inhaler Encounter Details Date Type Department Care Team (Late st Contact Info) Description 11/13/2012 9:45 AM EDT Follow-Up Family Medicine at [facility] [address] [place] [phone] Buddy Hicks MD [facility] [place] [address] Hypertension (Primary Dx); COPD (chronic obstructive pulmonary disease); Seizure disorder; Hypothyroid; Anxiety Discharge Disposition: Home Social History Tobacco Use [...] Sign Reading Time Taken Comments Blood Pressure 131/54 11/13/2012 10:08 AM EDT ri ght arm Pulse 67 11/13/2012 10:08 AM EDT Temperature 36.7 ??C (98.1 ??F) 11/13/2012 10:08 AM E DT Respiratory Rate - - Oxygen Saturation 96% 11/13/2012 10:08 AM EDT Inhaled Oxygen Concentration - - Weight - - Height - - Body Mass Index - - documented in this encounter Patient Instructions * Patient Instructions* Buddy Hicks MD - 11/18/2012 12:41 PM EDT High Blood Pressure: Uncontrolled high blood pressure is a leading cause of heart attack and stroke. Controlling blood pressure can lower risk of heart attack and stroke. Your blood pressure goal is: 140/90 or less Your most recent pressure reads here were: BP Readings from Last 3 Encounters: 11/13/12 131/54 05/06/12 134/60 04/16/12 148/64 Please monitor your pressure at home or in our self pressure checking room. If you are not at goal we can work together to change that. Maintaining a healthy weight and getting exercise most days is the best way to lower your risk of heart attack and stroke. documented in this encounter Progress Notes * Buddy Hicks MD - 11/13/2012 10:24 AM EDT Assessment/Plan A: HTN: at goal on Dyazide. - BMP today A: COPD: Saw Abhinav Albarran MD (Pul, [facility]) ~ 2 mos ago, for 2nd opinion on COPD. Her med regimen seems confused at this point (Advair 2x/wk, Ventolin bid and Pro-Aire qd). - LUISA for records from Dr. 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 A: hypothyroid: Synthroid increased by Dr. Morales in February, although TSH WNL at that time (3.02, compared to 4.36 in Aug.) - TSH today A: anxiety/insomnia/benzo dependence: improved on Paxil 20 mg qd. GAD7 = 3, PHQ9 = 3, compared to 13 and 4 in Sep. Continues to take Lorazepam 1 mg qhs, and occas during daytime (~ 2x/mos) - start Paxil 10 mg qhs. If not sleeping well p 3 wks, may incr to 20 mg qhs. - wean Lorazepam as possible: try 0.5-1.0 mg qhs (#30 w/o RF) - f/u 2 mos Subjective for f/u HTN and COPD. Feels well in general. Saw Abhinav Albarran MD (Pulm, [facility]) ~ 2 mos ago, for 2nd opinion on COPD. (The nurse and the interpretive naturalist there told me he was brilliant.) He told me to get rid of my wood stove. (Pt does not see this as a possibility.) She also reports he gave her Rx for Pro-Aire. Currently uses Spiriva inhaler qam, Advair ~ 2x/wk, and has been using Albuterol from Dr. Albarran qd, since she thought this was something new. Continues to use Ventolin ~ 2x/day. Dr. Albarran ordered CT scan for 12/20 at [facility], then f/u w/ him. No known Sz's. Paxil started in Jun, now 20 mg qd. Anxiety improved. Sleeps pretty good. Takes Lorazepam 1 mg qhs. Occas takes 1 mg prn during the day (~ 2x/mos) Son Gerald (Et[place]) moved out in Sep, but has been staying w/ Thanh more recently d/t car not working. 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) tobacco: D/C'd ~ '06 EtOH: rare/none keeps chickens and a beefalo mows lawn, uses weedwhacker Objective BP 131/54 Pulse 67 Temp(Src) 36.7 ??C (98.1 ??F) (Oral) SpO2 96% Gen: NAD Lungs: CTA Cor: RRR @ 68, nl s1s2, w/o m Ext: neg edema Please see Assessment/Plan at beginning of note. documented in this encounter Plan of Treatment Upcoming Encounters Date Type Department Care Team (Late st Contact Info) Description 05/29/2024 2:00 PM EDT Office Visit Cardiology at [address] [place] [address] Estiven Raza MD [facility] [place] [address] documented as of this encounter Procedures Procedure Name Priority Date/Time Associated Diagnosis Comments TSH Routine 11/13/2012 11:53 AM EDT Hypothyroid BASIC METABOLIC PANEL Routine 11/13/2012 11:53 AM EDT Hypertension documented in this encounter Results * TSH (11/13/2012 11:53 AM EDT) Thyroid Stimulating Hormone 2.91 0.27 - 4.20 mcIU/mL [facility] MARYVALEVimblyENNIUM Blood specimen (specimen) 11/13/2012 11:53 AM EDT 11/13/2012 3:42 PM EDT Narrative Resulting Agency Comment Spec In Lab Buddy Hicks MD CHEMISTRY ORDERABLES [facility] VuCOMP * Basic Metabolic Panel (non-fasting) (11/13/2012 11:53 AM EDT) Glucose 102 60 - 199 mg/dL CERNER HitlabIUM Comment:Diabetes: >=200 mg/d L plus symptoms Blood Urea Nitrogen 16 8 - 18 mg/dL CERNER MILLENNIUM Creatinine 0.83 0.70 - 1.20 mg/dL CERNER MILLENNIUM Comment: Please note that the pediatric reference intervals supplied above were not validated at [facility]. Results from pediatric patients should be interpreted in conjunction to the patient's age, height and muscle mass. Sodium 139 135 - 145 mmol/L CERNER MILLENNIUM Potassium 3.8 3.5 - 5.0 mmol/L CERNER MILLENNIUM Comment: Please note: ??Patients with WBC >100,000 may have falsely elevated Potassium levels. ??For accurate Potassium quantification in these patients send serum separator tube (gold top) for subsequent determinations. ??Contact the Clinical Chemistry Laboratory if there are any questions. Chloride 102 98 - 107 mmol/L CERNER MILLENNIUM Carbon Dioxide 31 22 - 31 mmol/L CERNER MILLENNIUM Anion Gap 6 5 - 15 mmol/L CERNER MILLENNIUM Calcium 9.3 8.5 - 10.5 mg/dL CERNER MILLENNIUM Est Glomerular Filtration Rate >60 >=60 CERNER MILLENNIUM Comment: The National Kidney Disease Education Program (NKDEP) has recommended all laboratories report estimated GFR (eGFR) along with plasma creatinine measurements to assist you with recognition of early kidney disease. Caveats: ??Plasma creatinine should be at steady-state (unchanged within the past week). For patients multiply eGFR by 1.2. The MDRD equation was developed using patients between the ages of 18 and 70 years. ?? The MDRD equation has not been validated for patients < 18 years of age and should not be used to assess renal function in the pediatric population. ??The MDRD eGFR equation will also overestimate the true GFR of patients above the age of 70. ??This overestimation is variable but increases with age. At present, NKDEP does NOT recommend using the MDRD equation for drug dosing purposes and pharmacists should continue to use their current dosing methods. In addition, numerical eGFR values greater than 60 ml/min/1.73 square meters should be treated as > 60, and not an exact number due to greater inaccuracies at these higher values. Per NKDEP, they classify normal renal function as any GFR >60ml/min/1.73 square meters; chronic kidney disease when GFR <60, and renal failure when GFR <15. ??This calculation may not be valid for patients with atypical muscle mass (very lean or obese), acute renal failure, and in patients with diabetic kidney disease. References: http://nkdep.nih.gov/resources/NKDEP_Suggestn4Labs_0606_508.pdf http://www.kidney.org/professionals/kls/pdf/faq_gfr.pdf Olman K, Madelaine NA, Samanta AK, Jameson TS, Arash AD, Blaine PRANAY. Relative performance of the MDRD and CKD-EPI equations for estimating glomerular filtration rate among patients with varied clinical presentations. Clin J Am Soc Nephrol;6:1963-72. Blood specimen (specimen) 11/13/2012 11:53 AM EDT 11/13/2012 3:42 PM EDT Narrative Resulting Agency Comment Spec In Lab Buddy Hicks MD CHEMISTRY ORDERABLES Performing Organization Address City/[facility] Phone Number [facility] documented in this encounter Visit Diagnoses Diagnosis Hypertension- Primary Unspecified essential hypertension COPD (chronic obstructive pulmonary disease) Chronic airway obstruction, not elsewhere classified Seizure disorder Unspecified epilepsy without mention of intractable epilepsy Hypothyroid Unspecified hypothyroidism Anxiety Anxiety state, unspecified documented in this encounter Care Teams Broadcast Maintenance Engineer Relationship Specialty Start Date End Date Buddy Hicks MD [facility] [address] [place] [address] PCP - General 02/13/12 07/21/14 documented as of this encounter
--- OUTSIDE RECORDS SUMMARY | 2024-05-02 14:01 | XMS_ITS | Encounter Summary ---
Author Organization [facility] Address [facility] [place] [address] Care Team Providers Care Cab Driver Name Role Phone Buddy Hicks MD Primary Care Provider Encounter Details Date Type Department Care Team (Late st Contact Info) Description 06/11/2012 Orders Only Family Medicine [facility] [place] [address] Buddy Hicks MD [facility] [address] [address] Social History Tobacco Use Types Packs/Day Years [...] PM EDT Office Visit Cardiology [place] [address] [place] [address] Estiven Raza MD [facility] [place] [address] documented as of this encounter Visit Diagnoses Not on filedocumented in this encounter Care Teams Cab Driver Relationship Specialty Start Date End Date Buddy Hicks MD [facility] [place] [address] PCP - General 02/13/12 07/21/14 documented as of this encounter
--- OUTSIDE RECORDS SUMMARY | 2024-05-02 14:01 | XMS_ITS | Encounter Summary ---
Author Organization Formerly [facility] Address [facility] [place] [address] Care Team Providers Care Clerical Order Filler Name Role Phone Buddy Hicks MD Primary Care Provider [phone] Encounter Details Date Type Department Care Team (Latest Contact Info) Description 05/06/2012 11:44 AM EDT - 05/06/2012 11:59 PM EDT Hospital Encounter [place] [phone] COPD (chronic obstructive pulmonary disease) (Primary Dx) [...] Date End Date gabapentin (NEURONTIN) 300 mg capsule Take by mouth. 1 tablet in am and 2 tablets at HS 90 capsule 6 04/29/2012 11/24/2012 triamterene-hydrochlo rothiazide (MAXZIDE-25) 37.5-25 mg per tablet Take 0.5 tablets by mouth daily. 45 tablet 0 04/29/2012 07/29/2012 LORazepam (ATIVAN) 1 mg tablet Take 0.5-1 tablets by mouth nightly as needed for Anxiety. May fill At [facility] [place] 30 tablet 0 04/16/2012 05/14/2012 PARoxetine (PAXIL) 10 mg tablet Take 1 tablet by mouth every evening. 90 tablet 3 04/16/2012 06/10/2012 tiotropium (SPIRIVA WITH HANDIHALER) 18 mcg inhalation capsuleIndications:CO PD (chronic obstructive pulmonary disease) Inhale 1 capsule into the lungs daily. 1 capsule 11 03/12/2012 01/01/2013 levothyroxine (SYNTHROID) 50 mcg tablet Take 1 tablet by mouth daily. 90 tablet 3 02/13/2012 02/21/2013 VENTOLIN HFA 90 mcg/actuation inhalerIndications:CO PD (chronic obstructive pulmonary disease) INHALE ONE PUFF BY MOUTH FOUR TIMES A DAY NEEDED FOR WHEEZING 18 g 3 01/22/2012 01/01/2013 fluticasone-salmetero l (ADVAIR DISKUS) 250-50 mcg/dose diskus inhaler Inhale 1 puff into the lungs daily as needed. Please call clinic for an appointment. 1 Inhaler 0 08/29/2011 10/28/2012 hydroxychloroquine (PLAQUENIL) 200 mg tablet Take 1 tablet by mouth daily. 90 tablet 3 08/24/2011 10/22/2012 epiNEPHrine (EPIPEN) 0.3 mg/0.3 mL injection Inject 0.3 mLs into the muscle daily as needed. 2 each 1 05/02/2011 10/30/2012 documented as of this encounter Procedure Notes * Carlton Murphy MD - 05/07/2012 8:17 AM EDTAssociated Order(s): PFT CARBON MONOXIDE DIFFUSING CAPACITY TEST; PFT SCREEN (PULMONARY FUNCTION TEST); SCAN DOC: PFT FVC is normal. FEV1 and FEV1/FVC are both decreased. The diffusing capacity uncorrected for hemoglobin is normal. Oxygen saturation on room air at rest was normal, but decreased slightly while walking. Impression: moderately severe obstructive defect with slight exercise-induced oxygen desaturation. documented in this encounter Plan of Treatment Upcoming Encounters Date Type Department Care Team (Late st Contact Info) Description 05/29/2024 2:00 PM EDT Office Visit Cardiology at [address] [address] Estiven Raza MD [facility] [place] [address] Scheduled Orders Name Type Priority Associated Diagnoses Orde r Schedule PFT Screen (Pulmonary Function Test) Procedures Routine [address] arting 05/06/2012 Carbon Monoxide Diffusing Capacity Test (DLCO) Procedures Routine [address] arting 05/06/2012 documented as of this encounter Procedures Procedure Name Priority Date/Time Associated Diagnosis Comments PFT SCAN Routine 07/07/2012 5:10 AM EST documented in this encounter Results * Carbon Monoxide Diffusing Capacity Test (DLCO) (07/07/2012 5:10 AM EST) Jaswinder Casas MD PROCEDURE/MINOR SURG ICAL ORDERABLES * PFT Screen (Pulmonary Function Test) (07/07/2012 5:10 AM EST) Jaswinder Casas MD PROCEDURE/MINOR SURG ICAL ORDERABLES * Scan Doc: PFT (07/07/2012 5:10 AM EST) Narrative Carlton Murphy MD - 07/07/2012 5:10 AM EST Carlton Murphy MD ? 07/07/2012 ??5:10 AM FVC is normal. ??FEV1 and FEV1/FVC are both decreased. ??The diffusing capacity uncorrected for hemoglobin is normal. Oxygen saturation on room air at rest was normal, but decreased slightly while walking. Impression: moderately severe obstructive defect with slight exercise-induced oxygen desaturation. Procedure Note Carlton Murphy MD - 05/07/2012 8:17 AM EDT FVC is normal. FEV1 and FEV1/FVC are both decreased. The diffusingcapacity uncorrected for hemoglobin is normal. Oxygen saturation on roomair at rest was normal, but decreased slightly while walking. Impression: moderately severe obstructive defect with slightexercise-induced oxygen desaturation. Historical Provider MD VELAZQUEZ MGR SCAN EX T ORDR/RSLT documented in this encounter Visit Diagnoses Diagnosis COPD (chronic obstructive pulmonary disease)- Primary Chronic airway obstruction, not elsewhere classified documented in this encounter Care Teams Clerical Order Filler Relationship Specialty Start Date End Date Buddy Hicks MD [facility] [address] [place] [address] PCP - General 02/13/12 07/21/14 documented as of this encounter
--- OUTSIDE RECORDS SUMMARY | 2024-05-02 14:01 | XMS_ITS | Encounter Summary ---
Author Organization [facility] [place] [address] Care Team Providers Care Lumber Marker Name Role Phone Alexys Morales MD Primary Care Provider [phone] Reason for Visit * Reason Comments Medication Refill Encounter Details Date Type Department Care Team (Late st Contact Info) Description 12/29/2011 Refill Family [facility] [place] [address] Alexys Morales MD [facility] [place] [address] Social History Tobacco Use Types Packs/Day Years [...] PM EDT Office Visit Cardiology at [address] [address] Estiven Raza MD [facility] [place] [address] documented as of this encounter Visit Diagnoses Not on filedocumented in this encounter Care Teams Lumber Marker Relationship Specialty Start Date End Date Alexys Morales [place] [address] PCP - General 06/28/10 02/12/12 documented as of this encounter
--- OUTSIDE RECORDS SUMMARY | 2024-05-02 14:01 | XMS_ITS | Encounter Summary ---
Author Organization [facility] Address [facility] [place] [address] Care Team Providers Care Ultrasound Tester Name Role Phone Buddy Hicks MD Primary Care Provider Reason for Visit * Reason Comments Follow-up Encounter Details Date Type Department Care Team (Late st Contact Info) Description 05/06/2012 12:15 PM EDT [place] [address] SCHEDULE 1, PFT Jaswinder Casas MD [facility] [place] [address] SOB (shortness of breath) (Primary Dx) Discharge Disposition: Home Social History Tobacco Use [...] Sign Reading Time Taken Comments Blood Pressure 134/60 05/06/2012 12:19 PM EDT Pulse 70 05/06/2012 12:19 PM EDT Temperature - - Respiratory Rate 12 05/06/2012 12:19 PM EDT Oxygen Saturation 96% 05/06/2012 12:19 PM EDT Inhaled Oxygen Concentration - - Weight 71.7 kg (158 lb) 05/06/2012 12:19 PM EDT Height 154.9 cm (5' 1) 05/06/2012 12:19 PM EDT Body Mass Index 29.85 05/06/2012 12:19 PM EDT documented in this encounter Progress Notes * Jaswinder Casas MD - 05/06/2012 1:32 PM EDT This is a patient with COPD and anxiety, the former has been well controlled on her regimen of Advair, Spiriva, Ventolin. She returns today allergies followup. She notes increasing anxiety. She says she becomes anxious in numerous situations and cannot alwaysidentify why. She notes that her primary care doctor has started Paxil and is titrating now. She is trying to walk 1 mile per day on her treadmill. She has tried to keep swimming however she had an episode of anxiety in the colon has not been back since. She thinks her overall exercise tolerance is about the same or slightly diminished, but not significantly so. She denies cough or wheeze. She denies chest pain or pressure. Her weight and appetite are stable. She does note that all 3 of her sons now live at home and contribute some to financial situation. Finances remain distress. She is also stressed by local building going surrounding [facility]. She admits many of her anxieties are not rational Blood pressure 134/60, pulse 70, resp. rate 12, height 154.9 cm (5' 1), weight 71.668 kg (158 lb),SpO2 96.00%. She speaks in full sentences without cough or wheeze. She goes on at great length about all the different situations that cause her anxiety, most of which are not related shortness of breath good air movement bilaterally, slightly prolonged expiratory phase Regular rate and rhythm Abdomen is benign No rash or edema Pulmonary function testing performed today is compared to previous testing from December of this year Forced vital capacity is decreased to 2.9-2.59 or 92% predicted. FEV1 has decreased from 1.29-1.14 or 53% predicted. The ratio is low. Diffusing capacity is 84% predicted. This represents moderate obstructive disease Assessment/plan Moderate COPD with a strong overlay of anxiety currently well-controlled on Advair, Spiriva, and Ventolin in addition to lorazepam. I think the addition of Paxil is excellent. I suspect we will be able to decrease the lorazepam somewhat but I doubt we will be able to decrease it completely but because of her underlying anxiety and also because of the positive feedback cycle of shortness of breath and anxiety/shortness of breath etc. that occurs in COPD which often requires some short-acting anxiolytic to break the cycle I will not change her therapy at this time. She has my card and number and will call me if symptomsarise I will see her in 3 months without further testing documented in this encounter Plan of Treatment Upcoming Encounters Date Type Department Care Team (Late st Contact Info) Description 05/29/2024 2:00 PM EDT Office Visit Cardiology at [address] [address] Estiven Raza MD [facility] [place] [address] documented as of this encounter Visit Diagnoses Diagnosis SOB (shortness of breath)- Primary Shortness of breath documented in this encounter Care Teams Ultrasound Tester Relationship Specialty Start Date End Date Buddy Hicks MD [facility] [place] [address] PCP - General 02/13/12 07/21/14 documented as of this encounter
--- OUTSIDE RECORDS SUMMARY | 2024-05-02 14:01 | XMS_ITS | Encounter Summary ---
Author Organization [facility] Address [facility] [place] [address] Care Team Providers Care Community Engagement Coordinator Name Role Phone Buddy Hicks MD Primary Care Provider Reason for Visit * Reason Onset Date Comments Medication Refill 02/01/2012 Encounter Details Date Type Department Care Team (Late st Contact Info) Description 02/01/2012 [place] [phone] Jaswinder Casas MD [facility] [place] [address] Social History Tobacco Use Types Packs/Day Years [...] PM EDT Office Visit Cardiology at [address] [phone] Estiven Raza MD [facility] [place] [address] documented as of this encounter Visit Diagnoses Not on filedocumented in this encounter Care Teams Community Engagement Coordinator Relationship Specialty Start Date End Date Buddy Hicks MD [facility] [address] [facility] [place] [address] PCP - General 02/13/12 07/21/14 documented as of this encounter
--- OUTSIDE RECORDS SUMMARY | 2024-05-02 14:01 | XMS_ITS | Encounter Summary ---
Author Organization [facility] Address [facility] [place] [address] Care Team Providers Care Cashier Courtesy Booth Name Role Phone Alexys Morales MD Primary Care Provider [phone] Encounter Details Date Type Department Care Team (Late st Contact Info) Description 01/10/2012 [place] [address] Jaswinder Casas MD [facility] [place] [address] Social History Tobacco Use Types Packs/Day Years [...] encounter Miscellaneous Notes * Telephone Encounter - [place] - 01/10/2012 2:05 PM EDT PLEASE SIGN PENDED ORDERS documented in this encounter Plan of Treatment Upcoming Encounters Date Type Department Care Team (Late st Contact Info) Description 05/29/2024 2:00 PM EDT Office Visit Cardiology at [address] [address] Estiven Raza MD [facility] [place] [address] Scheduled Orders Name Type Priority Associated Diagnoses Orde r Schedule Carbon Monoxide Diffusing Capacity Test (DLCO) Procedures Routine COPD (chronic obstructive pulmonary disease) Expected: 04/06/2012 (Approximate), Expires: 01/10/2013 PFT Screen (Pulmonary Function Test) Procedures Routine COPD (chronic obstructive pulmonary disease) Expected: 04/06/2012 (Approximate), Expires: 01/10/2013 documented as of this encounter Results * PFT Screen (Pulmonary Function Test) (07/07/2012 5:10 AM EST) Jaswinder Casas MD PROCEDURE/MINOR SURG ICAL ORDERABLES * Carbon Monoxide Diffusing Capacity Test (DLCO) (07/07/2012 5:10 AM EST) Jaswinder Casas MD PROCEDURE/MINOR SURG ICAL ORDERABLES documented in this encounter Visit Diagnoses Diagnosis COPD (chronic obstructive pulmonary disease)- Primary Chronic airway obstruction, not elsewhere classified documented in this encounter Care Teams Cashier Courtesy Booth Relationship Specialty Start Date End Date Alexys Morales MD [facility] [place] [address] PCP - General 06/28/10 02/12/12 documented as of this encounter
--- OUTSIDE RECORDS SUMMARY | 2024-05-02 14:01 | XMS_ITS | Encounter Summary ---
Author Organization Formerly [facility] [place] [address] Care Team Providers Care Treating Machine Operator Name Role Phone Buddy Hicks MD Primary Care Provider [phone] Reason for Visit * Reason Comments Follow-up Encounter Details Date Type Department Care Team (Late st Contact Info) Description 02/13/2012 1:20 PM EDT Follow-Up Family Medicine at [facility] [place] [address] Alexys Morales MD [facility] [place] [address] Hypothyroidism (Primary Dx) Discharge Disposition: Home Social History [...] Sign Reading Time Taken Comments Blood Pressure 136/68 02/13/2012 1:08 PM EDT Pulse 65 02/13/2012 1:08 PM EDT Temperature 36.7 ??C (98 ??F) 02/13/2012 1:08 PM EDT Respiratory Rate 18 02/13/2012 1:08 PM EDT Oxygen Saturation 99% 02/13/2012 1:08 PM EDT Inhaled Oxygen Concentration - - Weight - - Height 154.9 cm (5' 1) 02/13/2012 1:08 PM EDT p er pt Body Mass Index - - documented in this encounter Progress Notes * Alexys Morales MD - 02/13/2012 1:03 PM EDT Mrs. Gonzalez is a 61 y.o. Woman with a chief complaint of feeling tired and for follow up of multiple medical issues. HISTORY OF PRESENT ILLNESS: 1) Fatigue: Mrs. Gonzalez notes that she feels more tired than normal after her regular daily activities. She gets a good night's sleep because she takes lorazepam and gabapentin which help her sleep. She usually takes a nap in the afternoon. She feels that her work of breathing leads to her feeling tired but does not explain her fatigue. 2) Depression -- the gabapentin helps (and also helps with her restless leg syndrome) PHQ-9 score of 4 today (02/13/12). 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 She takes the Advair 250/50 every AM, and some PMs on bad days. (She stopped smoking 6 yrs ago, and that helped to stabilize things somewhat, and a coal cager helped as well.) 4) allergic reactions -- she's getting increasingly bad reactions to bug bites -- was referred to Allergy and now carries an Epi Pen. ROS: CVS - no chest pain Pulm - no SOB GI - no N/V/D M/S: Some joint pain in her fingers. Skin: no new rash Patient Active Problem List Diagnoses Code ??? Alopecia 704.00P ??? Depression 311L ??? Osteopenia 733.90X ??? Ankle fracture, right 824.8AG ??? SVT (supraventricular tachycardia) 427.89EV ??? Adult ADHD 314.01AN ??? Anxiety 300.00E ??? COPD (chronic obstructive pulmonary disease) 496B ??? Healthcare maintenance V70.0Q ??? Hypertension 401.9AJ ??? Insomnia 780.52A ??? Seizure disorder 345.90DQ ??? Systemic lupus erythematosus 710.0 ??? Fatigue 780.79B No past medical history on file. Past Surgical History Procedure Date ??? Created by interface open reduction, internal fixation-right ankle Procedure Date: 2006 ??? Ankle fracture surgery 2007 History Social History ??? Marital Status: Spouse Name: N/A Number of Children: N/A ??? Years of Education: N/A Occupational History ??? Not on file. Social History Main Topics ??? Smoking status: Former Smoker -- 30 years Types: Cigarettes Quit date: 02/16/2005 ??? Smokeless tobacco: Never Used ??? Alcohol Use: No ??? Drug Use: No ??? Sexually Active: Not on file Other Topics Concern ??? 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 Diabetes Father ??? Chronic Obstructive Pulmonary Disease Mother Allergies Allergen Reactions ??? Bee Pollen Hives Current outpatient prescriptions ordered prior to encounter Medication Sig Dispense Refill ??? triamterene-hydrochlorothiazide (MAXZIDE-25) 37.5-25 mg per tablet Take 0.5 tablets by mouth daily. 45 tablet 0 ??? LORazepam (ATIVAN) 1 mg tablet Take 1.5 tablets by mouth 2 times daily as needed for Anxiety. May fill At [facility] [place] 45 tablet 0 ??? VENTOLIN HFA 90 mcg/actuation inhaler INHALE ONE PUFF BY MOUTH FOUR TIMES A DAY NEEDED FOR WHEEZING 18 g 3 ??? SPIRIVA WITH HANDIHALER 18 mcg inhalation capsule INHALE ONE CAPSULE BY MOUTH VIA HANDIHALER DAILY 1 capsule 0 ??? gabapentin (NEURONTIN) 300 mg capsule Take by mouth. 1 tablet in am and 2 tablets at HS 90 capsule 6 ??? levothyroxine (SYNTHROID) 25 mcg tablet Take 1 tablet by mouth daily. 30 tablet 12 ??? fluticasone-salmeterol (ADVAIR DISKUS) 250-50 mcg/dose diskus inhaler Inhale 1 puff into the lungs daily as needed. Please call clinic for an appointment. 1 Inhaler 0 ??? hydroxychloroquine (PLAQUENIL) 200 mg tablet Take 1 tablet by mouth daily. 90 tablet 3 ??? fluocinonide (LIDEX) 0.05 % cream Apply topically 2 times daily as needed. ??? RU-TR-TN-Fg-Zhz-Ifxqtbj-Lutein (CENTRUM) 0.4-162-18 mg Tab ??? epiNEPHrine (EPIPEN) 0.3 mg/0.3 mL injection Inject 0.3 mLs into the muscle daily as needed. 2 each 1 BP 136/68 Pulse 65 Temp(Src) 36.7 ??C (98 ??F) (Oral) Resp 18 Ht 154.9 cm (5' 1) SpO2 99% PHYSICAL EXAMINATION: WN,WD in NAD, A&O Lungs: clr to A, peak expiratory flow measured at approximately 200 Ext: no C/C/E ASSESSMENT/PLAN: 1) Fatigue: Mrs. Gonzalez has been feeling increasingly fatigued during the day especially after physical activities such as walking around her yard. She was found to have a borderline-elevated TSH of 4.36 in August 2011 and was prescribed levothyroxine (Synthroid) 25 mcg daily. As this is the lowest does of Synthroid it may be inadequate and her fatigue may be due to improperly controlled hypothyroidism. She is also taking medications such as lorazepam and gabapentin that may cause fatigue. Shewould like to pursue the TSH test before attempting to alter any medications. -Recheck TSH with f/u if levels continue to be elevated. -f/u on medications which may contribute to fatigue. 2) COPD: Mrs. Gonzalez has a history of COPD which she feels is stable at this time. Her peak expiratory flow was measured today to be approximately 195-200. Since she no longer smokes and her symptomsare well managed by Advair, Spiriva and Ventolin, no change in management will be made at this time. -continue current medications 3) HTN -- reduced to 1/2 tab per day of triamt/HCTZ, and doing fine - CPM Orders Placed This Encounter Procedure ??? Tsh Goals as of 02/13/2012 None Counselling: Barriers Discussed Old Records reviewed with patient: in EMR Old tests reviewed with patient: in EMR RTC: 2 mos with new PCP, Dr Hicks documented in this encounter Plan of Treatment Upcoming Encounters Date Type Department Care Team (Late st Contact Info) Description 05/29/2024 2:00 PM EDT Office Visit Cardiology at [address] [address] Estiven Raza MD [facility] [place] [address] documented as of this encounter Procedures Procedure Name Priority Date/Time Associated Diagnosis Comments TSH Routine 02/13/2012 2:44 PM EDT Hypothyroidism documented in this encounter Results * TSH (02/13/2012 2:44 PM EDT) Thyroid Stimulating Hormone 3.02 0.27 - 4.20 mcIU/mL CERNER MILLENNIUM Blood specimen (specimen) 02/13/2012 2:44 PM EDT 02/13/2012 2:54 PM EDT Narrative Resulting Agency Comment Spec In Lab Alexys Morales MD CHEMISTRY ORDERABLES [employer] documented in this encounter Visit Diagnoses Diagnosis Hypothyroidism- Primary Unspecified hypothyroidism documented in this encounter Care Teams Treating Machine Operator Relationship Specialty Start Date End Date Buddy Hicks MD [facility] [address] [facility] [place] [address] PCP - General 02/13/12 07/21/14 documented as of this encounter
--- OUTSIDE RECORDS SUMMARY | 2024-05-02 14:01 | XMS_ITS | Encounter Summary ---
Author Organization [facility] Address [facility] [place] [address] Care Team Providers Care Animal Shelter Worker Name Role Phone Buddy Hicks MD Primary Care Provider [phone] Reason for Visit * Reason Comments Follow-up Encounter Details Date Type Department Care Team (Late st Contact Info) Description 02/04/2013 11:05 AM EDT Follow-Up Family Medicine at [facility] [address] [place] [phone] Buddy Hicks MD [facility] [place] [address] Hypertension (Primary Dx); COPD (chronic obstructive pulmonary disease); Anxiety; Seizure disorder; Hypothyroid Discharge Disposition: Home Social History Tobacco Use [...] Sign Reading Time Taken Comments Blood Pressure 113/47 02/04/2013 11:35 AM EDT Pulse 55 02/04/2013 11:35 AM EDT Temperature 36.7 ??C (98.1 ??F) 02/04/2013 11:35 AM E DT Respiratory Rate 16 02/04/2013 11:35 AM EDT Oxygen Saturation 97% 02/04/2013 11:35 AM EDT Inhaled Oxygen Concentration - - Weight 67.1 kg (148 lb) 02/04/2013 11:35 AM EDT Height 154.9 cm (5' 1) 02/04/2013 11:35 AM EDT Body Mass Index 27.96 02/04/2013 11:35 AM EDT documented in this encounter Patient Instructions * Patient Instructions* Buddy Hicks MD - 02/04/2013 12:25 PM EDT High Blood Pressure: Uncontrolled high blood pressure is a leading cause of heart attack and stroke. Controlling blood pressure can lower risk of heart attack and stroke. Your blood pressure goal is: 140/90 or less Your most recent pressure reads here were: BP Readings from Last 3 Encounters: 02/04/13 113/47 11/13/12 131/54 05/06/12 134/60 Please monitor your pressure at home or in our self pressure checking room. Consumer reports recommends these options for home blood pressure cuffs: [employer] Delux Automatic [id number] Omron 10 Series BP785, or [employer] Advanced Automatic [id number] Item [id number] (their top pick) If you get a cuff, save the receipt and bring the cuff in for testing during a nurse visit. If you are not at goal we can work together to change that. Maintaining a healthy weight and getting exercise most days is the best way to lower your risk of heart attack and stroke. documented in this encounter Progress Notes * Buddy Hicks MD - 02/04/2013 11:43 AM EDT Assessment/Plan A: HTN: at goal on Dyazide. BMP WNL in Nov. A: COPD: has been followed by Abhinav Albarran MD ([place], [facility]), but I have not rec'd records. Her medregimen continues to seem confused (she is using Albuterol qam, and he recently added Combivent Respimat. She's uncertain when she is to use this. Not on any steroid since she D/C'd Advair ~ 2 mos ago.) Has f/u w/ Dr. Albarran 07/15/13. - resubmit LUISA for records from Dr. Albarran - pt agrees to call Dr. Albarran to let him know she D/C'd Advair. 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 A: hypothyroid: TSH WNL in Nov. A: anxiety/insomnia/benzo dependence: had been doing well on Paxil 20 mg qd, but she is under sig incr stress lately, d/t Apollo has end-stage CHF. GAD7 = 16, PHQ9 = 6, compared to 3 and 3 in Nov, and 13 and 4 in Apr. Continues to take Lorazepam 1 mg qhs, and occas during daytime. - cont Paxil 20 mg qhs. - encouraged to use Lorazepam as little as possible - f/u 2 mos Subjective for f/u HTN, COPD, anxiety. Reports breathing is fine. Saw Dr. Albarran in [place] in January. He added Combivent Respimat MDI, but she's not sure how to use it. I never got records from him. She has an After Visit Summary that lists Spriva only. No other meds listed. She reports he is aware of her othermeds, but she is not able to tell me all the names. Current meds as best she can describe: Advair 1 puff qd (not taking: D/C'd ~ 2 mos ago d/t gave her laryngitis. Did rinse her mouth p eachdose.) (did not tell Dr. Albarran in January that she had D/C'd Advair. Spiriva 18 mcg inhaled qd Albuterol MDI 2 puffs qam and prn (usually 1 add'l dose during day) Reports Dr. Albarran recently Rx'd Respimat to be used 2 puffs qam (She's not certain of this; does not have instr w/ her). Incr stress d/t partner Apollo was in hosp for CHF, apparently end-stage (she reports EF 15%). Currently in SNF, but she expects him to come home soon for hospice care. 1 ignacio and her 3 yo grandson havebeen staying w/ her while Apollo is in SNF. Mood reasonably good on Paxil 20 mg qd, but anxiety has been worse d/t these stressors. Takes Lorazepam 1 mg 3-7 nocs/wk. 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 documented in this encounter Plan of Treatment Upcoming Encounters Date Type Department Care Team (Late st Contact Info) Description 05/29/2024 2:00 PM EDT Office Visit Cardiology at [address] [phone] Estiven Raza MD [facility] [address] documented as of this encounter Visit Diagnoses Diagnosis Hypertension- Primary Unspecified essential hypertension COPD (chronic obstructive pulmonary disease) Chronic airway obstruction, not elsewhere classified Anxiety Anxiety state, unspecified Seizure disorder Unspecified epilepsy without mention of intractable epilepsy Hypothyroid Unspecified hypothyroidism documented in this encounter Care Teams Animal Shelter Worker Relationship Specialty Start Date End Date Buddy Hicks MD [facility] [address] [facility] [place] [address] PCP - General 7/10/12 12/16/14 documented as of this encounter
--- OUTSIDE RECORDS SUMMARY | 2024-05-02 14:01 | XMS_ITS | Encounter Summary ---
Author Organization Formerly [facility] Address [facility] [place] [address] Care Team Providers Care Shore Worker Name Role Phone Buddy Hicks MD Primary Care Provider [phone] Reason for Visit * Reason Onset Date Comments Medication Refill 07/10/2012 Encounter Details Date Type Department Care Team (Late st Contact Info) Description 07/09/2012 Refill Family Medicine at [facility] [address] [place] [phone] Buddy Hicks MD [facility] [place] [address] Social History Tobacco Use Types Packs/Day Years [...] encounter Miscellaneous Notes * Telephone Encounter - Carmen Arredondo LPN - 07/10/2012 10:58 AM EST Rx called in to John Bustillos Rp @ [facility]. * Telephone Encounter - Niecy Cuevas - 07/10/2012 10:50 AM EST Please call the script into pharmacy--they didn't get it. Thanks, Niecy Zapata * Telephone Encounter - Aniya Ceja LPN - 07/09/2012 4:51 PM EST Faxed to pharmacy * Telephone Encounter - Aniya Ceja LPN - 07/09/2012 3:13 PM EST Spoke with pt and pt states she was told she could take 1 1/2 tabs occasionally for increased anxiety and another 0.5mg tab at hs if needed. (in note from 04/16/12). Told pt that I would see about getting a few for her today until can be reviewed by Dr. Hicks. Pt voices agreement. * Telephone Encounter - Faith Marshall - 07/09/2012 2:56 PM EST Thanh returned your call and reply was that it's say she can take 1 to 1 1/2 tablets a day depending on who she is feeling. Please call her at [phone]. * Telephone Encounter - Aniya Ceja LPN - 07/09/2012 2:50 PM EST Pt is not due for refill of ativan until 07/11/12. Message left to call clinic. Need to inquire why she is out today. documented in this encounter Plan of Treatment Upcoming Encounters Date Type Department Care Team (Late st Contact Info) Description 05/29/2024 2:00 PM EDT Office Visit Cardiology at [address] [phone] Estiven Raza MD [facility] [place] [address] documented as of this encounter Visit Diagnoses Not on filedocumented in this encounter Care Teams Shore Worker Relationship Specialty Start Date End Date Buddy Hicks MD [facility] [address] [facility] [place] [address] PCP - General 02/13/12 07/21/14 documented as of this encounter
--- OUTSIDE RECORDS SUMMARY | 2024-05-02 14:01 | XMS_ITS | Encounter Summary ---
Author Organization [facility] Address [facility] [place] [address] Care Team Providers Care Bank Sales And Service Manager Name Role Phone Buddy Hicks MD Primary Care Provider Reason for Visit * Reason Onset Date Comments Medication Refill 02/14/2013 Encounter Details Date Type Department Care Team (Late st Contact Info) Description 02/14/2013 Refill Family Medicine at [facility] [address] [place] [address] Buddy Hicks MD [facility] [place] [address] Social History Tobacco Use Types Packs/Day Years [...] 2:00 PM EDT Office Visit Cardiology at [address] [phone] Estiven Raza MD [facility] [place] [address] documented as of this encounter Visit Diagnoses Not on filedocumented in this encounter Care Teams Bank Sales And Service Manager Relationship Specialty Start Date End Date Buddy Hicks MD [facility] [place] [address] PCP - General 02/13/12 07/21/14 documented as of this encounter
--- OUTSIDE RECORDS SUMMARY | 2024-05-02 14:01 | XMS_ITS | Encounter Summary ---
Author Organization [facility] Address [facility] [place] [facility] [place] [address] Care Team Providers Care Registered Pharmacy Technician Name Role Phone Buddy Hicks MD Primary Care Provider [phone] Encounter Details Date Type Department Care Team (Late st Contact Info) Description 07/10/2012 Telephone Family Medicine at [facility] [address] [place] [phone] Buddy Hicks MD [facility] [place] [address] Social History Tobacco Use Types Packs/Day Years [...] Telephone Encounter - Aniya Ceja LPN - 07/10/2012 3:30 PM EST Spoke with the pharmacy and corrected fill date. Pt notified * Telephone Encounter - Glenda Hills - 07/10/2012 3:07 PM EST Pt called and only got 7 pills and was out yesterday and states the pharm wont fill till tomorrow. She states that the people act like she's addicted to them or something and that's why there. documented in this encounter Plan of Treatment Upcoming Encounters Date Type Department Care Team (Late st Contact Info) Description 05/29/2024 2:00 PM EDT Office Visit Cardiology at [address] [phone] Estiven Raza MD [facility] [address] documented as of this encounter Visit Diagnoses Not on filedocumented in this encounter Care Teams Registered Pharmacy Technician Relationship Specialty Start Date End Date Buddy Hikcs MD [facility] [address] [facility] [place] [address] PCP - General 02/13/12 07/21/14 documented as of this encounter
--- OUTSIDE RECORDS SUMMARY | 2024-05-02 14:01 | XMS_ITS | Encounter Summary ---
Author Organization [facility] Address [facility] [place] [address] Care Team Providers Care Material Control Clerk Name Role Phone Buddy Hicks MD Primary Care Provider [phone] Reason for Visit * Reason Onset Date Comments Triage 05/16/2012 Encounter Details Date Type Department Care Team (Late st Contact Info) Description 05/16/2012 Telephone Family Medicine [facility] [place] [address] Buddy Hicks MD [facility] [address] [facility] [place] [address] Triage Social History Tobacco Use Types Packs/Day [...] encounter Miscellaneous Notes * Telephone Encounter - Constance Woodall LPN - 05/16/2012 9:14 AM EDT S - Pt reports: Pt has cold sx x 3 days; sore throat and headache. Pt denies difficulty breathing, cough, congestion, N/V, fever. Because pt has hx of COPD she is concerned and wondering if she should be put on an abx for preventive measures. Pt is instructed to rest and stay hydrated and take tylenol for her headache. If sx do not subside or worsen over the next couple of days pt is to call our office. Dr. Hicks agrees with above plan. Pt agrees with plan and verbalizes understanding. * Telephone Encounter - Corby Baker - 05/16/2012 8:39 AM EDT Has a head cold and COPD wants to know what to do. Thanks Corby Jalloh documented in this encounter Plan of Treatment Upcoming Encounters Date Type Department Care Team (Late st Contact Info) Description 05/29/2024 2:00 PM EDT Office Visit Cardiology at [address] [address] Estiven Raza MD [facility] [place] [address] documented as of this encounter Visit Diagnoses Not on filedocumented in this encounter Care Teams Material Control Clerk Relationship Specialty Start Date End Date Buddy Hicks MD [facility] [address] [facility] [place] [address] PCP - General 02/13/12 07/21/14 documented as of this encounter
--- OUTSIDE RECORDS SUMMARY | 2024-05-02 14:01 | XMS_ITS | Encounter Summary ---
Author Organization [facility] Address [facility] [place] [address] Care Team Providers Care Cytopathology Technologist Name Role Phone Buddy Hicks MD Primary Care Provider [phone] Reason for Visit * Reason Onset Date Comments Medication Refill 03/17/2013 Encounter Details Date Type Department Care Team (Late st Contact Info) Description 03/17/2013 Refill Family Medicine at [facility] [address] [place] [phone] Buddy Hicks MD [facility] [place] [address] Social History Tobacco Use Types Packs/Day Years [...] Telephone Encounter - Aniya Ceja LPN - 03/17/2013 4:20 PM EDT rx faxed to pharmacy * Telephone Encounter - Ambar Rogers - 03/17/2013 11:27 AM EDT Pt is requesting high priority she states she may have used a few more than normal due to the fact her boyfriend 1 month ago. documented in this encounter Plan of Treatment Upcoming Encounters Date Type Department Care Team (Late st Contact Info) Description 05/29/2024 2:00 PM EDT Office Visit Cardiology at [address] [address] Estiven Raza MD [facility] [place] [address] documented as of this encounter Visit Diagnoses Not on filedocumented in this encounter Care Teams Cytopathology Technologist Relationship Specialty Start Date End Date Buddy Hicks MD [facility] [address] [place] [address] PCP - General 02/13/12 07/21/14 documented as of this encounter
--- OUTSIDE RECORDS SUMMARY | 2024-05-02 14:01 | XMS_ITS | Encounter Summary ---
Author Organization [facility] Address [facility] [place] [address] Care Team Providers Care Advanced Manufacturing Engineer Name Role Phone Buddy Hicks MD Primary Care Provider [phone] Encounter Details Date Type Department Care Team (Late st Contact Info) Description 06/27/2013 Refill Internal Medicine at [facility] [address] [place] [phone] [place] [address] Social History Tobacco Use Types Packs/Day Years [...] encounter Miscellaneous Notes * Telephone Encounter - Litzy Ames - 06/27/2013 11:47 AM EST Patient states she will run out on Sunday. She states she can not go a day without them. documented in this encounter Plan of Treatment Upcoming Encounters Date Type Department Care Team (Late st Contact Info) Description 05/29/2024 2:00 PM EDT Office Visit Cardiology at [address] [address] Estiven Raza MD [facility] [place] [address] documented as of this encounter Visit Diagnoses Not on filedocumented in this encounter Care Teams Advanced Manufacturing Engineer Relationship Specialty Start Date End Date Buddy Hicks MD [facility] [address] [facility] [place] [address] PCP - General 02/13/12 07/21/14 documented as of this encounter
--- OUTSIDE RECORDS SUMMARY | 2024-05-02 14:01 | XMS_ITS | Encounter Summary ---
Author Organization [facility] Address [facility] [place] [address] Care Team Providers Care Boilermaking Supervisor Name Role Phone Buddy Hicks MD Primary Care Provider Reason for Visit * Reason Onset Date Comments Medication Refill 11/27/2012 Encounter Details Date Type Department Care Team (Late st Contact Info) Description 11/27/2012 Refill Family Medicine at [facility] [address] [place] [address] Buddy Hicks MD [facility] [place] [address] Social History Tobacco Use Types Packs/Day Years [...] PM EDT Office Visit Cardiology at [address] [address] Estiven Raza MD [facility] [place] [address] documented as of this encounter Visit Diagnoses Not on filedocumented in this encounter Care Teams Boilermaking Supervisor Relationship Specialty Start Date End Date Buddy Hicks MD [facility] [place] [address] PCP - General 02/13/12 07/21/14 documented as of this encounter
--- OUTSIDE RECORDS SUMMARY | 2024-05-02 14:01 | XMS_ITS | Encounter Summary ---
Author Organization [facility] [place] [address] Care Team Providers Care Anesthesiology Physician Assistant Name Role Phone Buddy Hicks MD Primary Care Provider [phone] Reason for Visit * Reason Onset Date Comments Medication Refill 03/11/2012 Encounter Details Date Type Department Care Team (Late st Contact Info) Description 03/11/2012 Refill Family Medicine [facility] [place] [address] Buddy Hicks MD [facility] [address] [facility] [place] [address] Social History Tobacco Use Types Packs/Day Years [...] Telephone Encounter - Aniya Ceja LPN - 03/12/2012 2:47 PM EDT rx faxed to pharmacy documented in this encounter Plan of Treatment Upcoming Encounters Date Type Department Care Team (Late st Contact Info) Description 05/29/2024 2:00 PM EDT Office Visit Cardiology at [address] [address] Estiven Raza MD [facility] [place] [address] documented as of this encounter Visit Diagnoses Not on filedocumented in this encounter Care Teams Anesthesiology Physician Assistant Relationship Specialty Start Date End Date Buddy Hicks MD [facility] [address] [facility] [place] [address] PCP - General 02/13/12 07/21/14 documented as of this encounter
--- OUTSIDE RECORDS SUMMARY | 2024-05-02 14:01 | XMS_ITS | Encounter Summary ---
Author Organization [facility] Address [facility] [place] [address] Care Team Providers Care Medical Instrument Technician Name Role Phone Buddy Hicks MD Primary Care Provider Reason for Visit * Reason Onset Date Comments Medication Refill 01/01/2013 Encounter Details Date Type Department Care Team (Late st Contact Info) Description 01/01/2013 Refill Family Medicine at [facility] [address] [place] [phone] Buddy Hicks MD [facility] [place] [address] COPD (chronic obstructive pulmonary disease) (Primary Dx) [...] Telephone Encounter - Aniya Ceja LPN - 01/01/2013 3:41 PM EDT advair renewed for a year in october * Telephone Encounter - Renetta Robles - 01/01/2013 11:47 AM EDT Needs a refill on the proAir and Advair also. Requesting today if we can. documented in this encounter Plan of Treatment Upcoming Encounters Date Type Department Care Team (Late st Contact Info) Description 05/29/2024 2:00 PM EDT Office Visit Cardiology at [address] [phone] Estiven Raza MD [facility] [place] [address] documented as of this encounter Visit Diagnoses Diagnosis COPD (chronic obstructive pulmonary disease)- Primary Chronic airway obstruction, not elsewhere classified documented in this encounter Care Teams Medical Instrument Technician Relationship Specialty Start Date End Date Buddy Hicks MD [facility] [address] [facility] [place] [address] PCP - General 02/13/12 07/21/14 documented as of this encounter
--- OUTSIDE RECORDS SUMMARY | 2024-05-02 14:01 | XMS_ITS | Encounter Summary ---
Author Organization [facility] Address [facility] [place] [address] Care Team Providers Care Carton Making Machinist Name Role Phone Buddy Hicks MD Primary Care Provider [phone] Reason for Visit * Reason Onset Date Comments Other 11/27/2012 Patient wanted y ou to be aware of medication given to her by specialist. Encounter Details Date Type Department Care Team (Late st Contact Info) Description 11/27/2012 Telephone Family Medicine at [facility] [address] [place] [address] Buddy Hicks MD [facility] [place] [address] Other (Patient wanted you to be aware of medication given to her by specialist. ) Social History Tobacco Use Types Packs/Day Years [...] encounter Miscellaneous Notes * Telephone Encounter - BunnymarliCorby - 11/27/2012 1:02 PM EDT The patient called and wanted you to know that the medication that the specialist in [place], Dr. Guerra gave her was Combivent inhaler. When she saw you she mistakenly showed you an inhaler that you had prescribed for her. The patient is aware that you are away this week. Thanks Corby Shearer documented in this encounter Plan of Treatment Upcoming Encounters Date Type Department Care Team (Late st Contact Info) Description 05/29/2024 2:00 PM EDT Office Visit Cardiology at [address] [address] Estiven Raza MD [facility] [place] [address] documented as of this encounter Visit Diagnoses Not on filedocumented in this encounter Care Teams Carton Making Machinist Relationship Specialty Start Date End Date Buddy Hicks MD [facility] [address] [facility] [place] [address] PCP - General 02/13/12 07/21/14 documented as of this encounter
--- OUTSIDE RECORDS SUMMARY | 2024-05-02 14:01 | XMS_ITS | Encounter Summary ---
Author Organization [facility] Address [facility] [place] [address] Care Team Providers Care Environmental Health And Safety Leader Name Role Phone Buddy Hicks MD Primary Care Provider [phone] Encounter Details Date Type Department Care Team (Late st Contact Info) Description 06/17/2012 Orders [place] [phone] Amy Dewey MD [facility] [address] Social History Tobacco Use Types Packs/Day Years [...] PM EDT Office Visit Cardiology at [address] [phone] Estiven Raza MD [facility] [place] [address] documented as of this encounter Procedures Procedure Name Priority Date/Time Associated Diagnosis Comments FILM LIBRARY STORAGE ONLY DX CHEST Routine 06/17/2012 3:16 PM EST documented in this encounter Results * Film Library- Storage only DX Chest (06/17/2012 3:16 PM EST) 06/17/2012 3:16 PM EST Narrative RAD - 02/17/2014 10:40 AM EDT This is a non-reportable exam. Procedure Note Noel Elizabeth - 02/17/2014 This is a non-reportable exam. Amy Dewey MD IMG FILM LIBRARY ORDERABLES RAD [address] [place] [address] documented in this encounter Visit Diagnoses Not on filedocumented in this encounter Care Teams Environmental Health And Safety Leader Relationship Specialty Start Date End Date Buddy Hicks MD [facility] [address] [place] [address] PCP - General 02/13/12 07/21/14 documented as of this encounter
--- OUTSIDE RECORDS SUMMARY | 2024-05-02 14:01 | XMS_ITS | Encounter Summary ---
Author Organization [facility] Address [facility] [place] [address] Care Team Providers Care Water Rights Specialist Name Role Phone Buddy Hicks MD Primary Care Provider Reason for Visit * Reason Onset Date Comments Medication Refill 07/21/2013 Encounter Details Date Type Department Care Team (Late st Contact Info) Description 07/21/2013 Refill Family Medicine at [facility] [address] [place] [phone] Buddy Hicks MD [facility] [place] [address] Social History Tobacco Use Types Packs/Day Years [...] Telephone Encounter - Aniya Ceja LPN - 07/22/2013 5:20 PM EST rx faxed to pharmacy documented in this encounter Plan of Treatment Upcoming Encounters Date Type Department Care Team (Late st Contact Info) Description 05/29/2024 2:00 PM EDT Office Visit Cardiology at [address] [address] Estiven Raza MD [facility] [place] [address] documented as of this encounter Visit Diagnoses Not on filedocumented in this encounter Care Teams Water Rights Specialist Relationship Specialty Start Date End Date Buddy Hicks MD [facility] [address] [facility] [place] [address] PCP - General 02/13/12 07/21/14 documented as of this encounter
--- OUTSIDE RECORDS SUMMARY | 2024-05-02 14:01 | XMS_ITS | Encounter Summary ---
Author Organization [facility] Address [facility] [place] [address] Care Team Providers Care Real Estate Appraiser Name Role Phone Buddy Hicks MD Primary Care Provider [phone] Encounter Details Date Type Department Care Team (Late st Contact Info) Description 02/13/2012 Telephone [facility] [place] [address] [facility] [place] [address] Social History Tobacco Use Types Packs/Day Years [...] encounter Miscellaneous Notes * Telephone Encounter - Alexys Morales MD - 02/13/2012 8:21 PM EDT TSH improved, but still >3. Rec: increase to 50mcg levothyroxine QD. Recheck TSH when visits new PCP in 2 mos. documented in this encounter Plan of Treatment Upcoming Encounters Date Type Department Care Team (Late st Contact Info) Description 05/29/2024 2:00 PM EDT Office Visit Cardiology at [address] [address] [facility] [address] documented as of this encounter Visit Diagnoses Not on filedocumented in this encounter Care Teams Real Estate Appraiser Relationship Specialty Start Date End Date Buddy Hicks MD [facility] [address] [place] [address] PCP - General 02/13/12 07/21/14 documented as of this encounter
--- OUTSIDE RECORDS SUMMARY | 2024-05-02 14:01 | XMS_ITS | Encounter Summary ---
Author Organization [facility] Address [facility] [place] [address] Care Team Providers Care Right Of Way Clearer Name Role Phone Buddy Hicks MD Primary Care Provider [phone] Reason for Visit * Reason Onset Date Comments Medication Refill 06/12/2012 Encounter Details Date Type Department Care Team (Late st Contact Info) Description 06/12/2012 Refill Family Medicine [facility] [place] [address] Buddy Hicks MD [facility] [address] [facility] [facility] [place] [place] [address] Social History Tobacco Use Types Packs/Day Years [...] encounter Miscellaneous Notes * Telephone Encounter - Renetta Robles - 06/13/2012 3:32 PM EST Pt called back checking status * Telephone Encounter - Corby Baker - 06/12/2012 2:44 PM EST Correct dosage should be to take 2 a day documented in this encounter Plan of Treatment Upcoming Encounters Date Type Department Care Team (Late st Contact Info) Description 05/29/2024 2:00 PM EDT Office Visit Cardiology at [address] [phone] Estiven Raza MD [facility] [place] [address] documented as of this encounter Visit Diagnoses Not on filedocumented in this encounter Care Teams Right Of Way Clearer Relationship Specialty Start Date End Date Buddy Hicks MD [facility] [address] [facility] [place] [address] PCP - General 02/13/12 07/21/14 documented as of this encounter
--- OUTSIDE RECORDS SUMMARY | 2024-05-02 14:01 | XMS_ITS | Encounter Summary ---
Author Organization [facility] Address [facility] [place] [address] Care Team Providers Care Movie Projectionist Name Role Phone Buddy Hicks MD Primary Care Provider [phone] Reason for Visit * Reason Onset Date Comments Medication Refill 10/30/2012 Encounter Details Date Type Department Care Team (Late st Contact Info) Description 10/30/2012 Refill Family Medicine at [facility] [address] [place] [address] Buddy Hicks MD [facility] [place] [address] Social History Tobacco Use Types Packs/Day Years [...] encounter Miscellaneous Notes * Telephone Encounter - Corby Finch - 10/30/2012 8:59 AM EDT The patient is requesting a refill of her epipen. She is hoping that she could get two. She keeps one in her purse and one at her house. She states that she is very allergic to bugs. Thanks Corby Shearer documented in this encounter Plan of Treatment Upcoming Encounters Date Type Department Care Team (Late st Contact Info) Description 05/29/2024 2:00 PM EDT Office Visit Cardiology at [address] [phone] Estiven Raza MD [facility] [place] [address] documented as of this encounter Visit Diagnoses Not on filedocumented in this encounter Care Teams Movie Projectionist Relationship Specialty Start Date End Date Buddy Hicks MD [facility] [place] [address] PCP - General 02/13/12 07/21/14 documented as of this encounter
--- OUTSIDE RECORDS SUMMARY | 2024-05-02 14:01 | XMS_ITS | Encounter Summary ---
Author Organization [facility] [place] [address] Care Team Providers Care Mortgage Servicing Specialist Name Role Phone Buddy Hicks MD Primary Care Provider [phone] Reason for Visit * Reason Comments Hypothyroidism f/u Encounter Details Date Type Department Care Team (Late st Contact Info) Description 04/16/2012 11:00 AM EDT Follow-Up Family Medicine at [facility] [place] [address] [facility] [address] Anxiety (Primary Dx); Hypertension; Hypothyroid; Insomnia; Absence seizure disorder Discharge Disposition: Home Social History Tobacco Use [...] Sign Reading Time Taken Comments Blood Pressure 148/64 04/16/2012 10:58 AM EDT Pulse 67 04/16/2012 10:58 AM EDT Temperature 36.8 ??C (98.3 ??F) 04/16/2012 10:58 AM E DT Respiratory Rate 16 04/16/2012 10:58 AM EDT Oxygen Saturation 95% 04/16/2012 10:58 AM EDT Inhaled Oxygen Concentration - - Weight 73.2 kg (161 lb 6.4 oz) 04/16/2012 10:58 AM EDT Height 154.9 cm (5' 1) 04/16/2012 10:58 AM EDT Body Mass Index 30.5 04/16/2012 10:58 AM EDT documented in this encounter Progress Notes * Buddy Hicks MD - 04/16/2012 11:05 AM EDT Assessment/Plan A: HTN: not at goal on Dyazide. BP was good at prev visit in February. Last BMP WNL December 2010. - f/u 2 mos - BMP that visit A: hypothyroid: Synthroid increased by Dr. Morales in February, although TSH WNL at that time (3.02, compared to 4.36 in Aug.) - TSH next visit A: anxiety/insomnia/benzo dependence: GAD7 = 13, PHQ9 = 4. - start Paxil 10 mg qhs. If not sleeping well p 3 wks, may incr to 20 mg qhs. 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 A: COPD: pt sched daniele't w/ pulm at [facility] 06/02 for 2nd opinion. She is reluctant to discuss this w/ Dr. Saldivar here, and asks me to forward relevant records. (She will provide name and fax of physicianthere.) Subjective former pt of Dr. Morales who presents now to f/u HTN, hypothyroid and several other issues. Reports good compliance w/ Dyazide, w/ no known ADR's. Synthroid increased from 0.25 to 0.50 mg in February. Pt reports she took 0.100 mg qd for ~ 2 wks in February before she realized her new Rx in was for 0.50 mg tabs (had been taking 0.25 mg x 2 tabs). Feels she is less tired. Has started exercising: walks ~ 20 min qd, started swimming at [facility] [employer] ~ 2 wks ago (goes 2-3x/wk, in pool for ~ 40 min, though not swimming the whole time). On dieting: I do good and then I go off of it. On Plaquenil for SLE. Mgt per Sherri Wilson ([facility]). On Gabapantin for Sz disorder, absence type. Does not recall last Sx. Gabapentin also helps RLS, and pt thinks it helps her mood. (Daren says I'm not as testy.) On Lorazepam 1 mg qhs for sleep (occastakes 1.5 mg qhs and occas takes 0.5 mg qd prn). Has been taking this for 4-5 yrs w/o dose increase. Feels her main issue is anxiety. Three grown sons live w/ her; middle son Carlos Enrique is EtOH. He goes driving at night p he has been drinking. Pt stays up until he gets home. She kicked him out once, but worried so much she allowed him to come back home. Tried mult anti-depressants in past (doc [place] Either ineffective or causes ADR's. 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 documented in this encounter Plan of Treatment Upcoming Encounters Date Type Department Care Team (Late st Contact Info) Description 05/29/2024 2:00 PM EDT Office Visit Cardiology at [address] [address] Estiven Raza MD [facility] [place] [address] documented as of this encounter Visit Diagnoses Diagnosis Anxiety- Primary Anxiety state, unspecified Hypertension Unspecified essential hypertension Hypothyroid Unspecified hypothyroidism Insomnia Insomnia, unspecified Absence seizure disorder Generalized nonconvulsive epilepsy without mention of intractable epilepsy documented in this encounter Care Teams Mortgage Servicing Specialist Relationship Specialty Start Date End Date Buddy Hicks MD [facility] [address] [facility] [place] [address] PCP - General 02/13/12 07/21/14 documented as of this encounter
--- OUTSIDE RECORDS SUMMARY | 2024-05-02 14:01 | XMS_ITS | Encounter Summary ---
Author Organization [facility] Address [facility] [place] [address] Care Team Providers Care Football Scout Name Role Phone Danny Zepeda MD Primary Care Provider Reason for Visit * Reason Onset Date Comments Prior Authorization 12/05/2012 Luana steel Encounter Details Date Type Department Care Team (Late st Contact Info) Description 12/05/2012 Telephone Family Medicine at [facility] [address] [place] [phone] Danny Zepeda MD [facility] [place] [address] Prior Authorization (Luana Jacome) Social History Tobacco Use Types Packs/Day Years [...] Miscellaneous Notes * Telephone Encounter - Aicha Lewis CMA - 12/06/2012 9:20 AM EDT Pharmacy DANIELLA feliciano for patient. * Telephone Encounter - Aicha Lewis CMA - 12/06/2012 9:10 AM EDT PA has been approved. * Telephone Encounter - Aicha Lewis CMA - 12/05/2012 2:15 PM EDT Pharmacy Prior Authorization Request Primary Care at [facility] [place] [address] Patient : [id number] Subscriber Insurance: [facility] MED[facility]- [employer] Physician: DANNY ZEPEDA MD Return Fax: [phone] Medication Requested: ADVAIR DISKUS Strength: 250 50 Frequency: QD PRN Disp.: Refills: Currently Taking ? : YES If yes, previous refill date: Disp.: Refills: Patient's diagnosis for this medication: COPD ICD-9 CM code for this diagnosis: Medical necessity for this medication: Additional risk factors that make this medication required: Prior medications trialed in this patient: SPIRIVA Medication: Approx Dates: Outcome/Adverse Reactions: Medication: Approx Dates: Outcome/Adverse Reactions: Drug Interactions: Please refer to notes of for additional documentation: ? copiers attached ? Approve: SUBMITTED VIA PHONE Denied: By: documented in this encounter Plan of Treatment Upcoming Encounters Date Type Department Care Team (Late st Contact Info) Description 05/29/2024 2:00 PM EDT Office Visit Cardiology at [address] [address] Estiven Raza MD [facility] [place] [address] documented as of this encounter Visit Diagnoses Not on filedocumented in this encounter Care Teams Football Scout Relationship Specialty Start Date End Date Danyn Zepeda MD [facility] [address] [facility] [place] [address] PCP - General 02/13/12 07/21/14 documented as of this encounter
--- OUTSIDE RECORDS SUMMARY | 2024-05-02 14:01 | XMS_ITS | Encounter Summary ---
Author Organization [facility] Address [facility] [place] [address] Care Team Providers Care Grade School Teacher Name Role Phone Buddy Hicks MD Primary Care Provider [phone] Reason for Visit * Reason Onset Date Comments Medication Refill 02/21/2013 Encounter Details Date Type Department Care Team (Late st Contact Info) Description 02/21/2013 Refill Family Medicine at [facility] [address] [place] [phone] Buddy Hicks MD [facility] [place] [address] Social History Tobacco Use Types Packs/Day Years [...] Miscellaneous Notes * Telephone Encounter - Faith Butts - 02/21/2013 8:57 AM EDT Pt asked for prompt refills today. Lost her partner and is having really hard time coping. documented in this encounter Plan of Treatment Upcoming Encounters Date Type Department Care Team (Late st Contact Info) Description 05/29/2024 2:00 PM EDT Office Visit Cardiology at [address] [address] Estiven Raaz MD [facility] [place] [address] documented as of this encounter Visit Diagnoses Not on filedocumented in this encounter Care Teams Grade School Teacher Relationship Specialty Start Date End Date Buddy Hicks MD [facility] [address] [facility] [place] [address] PCP - General 02/13/12 07/21/14 documented as of this encounter
--- OUTSIDE RECORDS SUMMARY | 2024-05-02 14:01 | XMS_ITS | Encounter Summary ---
Author Organization [facility] Address [facility] [place] [address] Care Team Providers Care Observation Assistant Name Role Phone Buddy Hicks MD Primary Care Provider Reason for Visit * Reason Onset Date Comments Medication Refill 06/19/2013 Encounter Details Date Type Department Care Team (Late st Contact Info) Description 06/19/2013 Refill Internal Medicine at [facility] [address] [place] [phone] Buddy Hicks MD [facility] [place] [address] Social History Tobacco Use Types Packs/Day Years [...] encounter Miscellaneous Notes * Telephone Encounter - Ifeanyi Kwok CMA - 06/19/2013 2:56 PM EST rx faxed to pharmacy * Telephone Encounter - Disha Zhao - 06/19/2013 11:36 AM EST Patient is out. Needs SARANYA. documented in this encounter Plan of Treatment Upcoming Encounters Date Type Department Care Team (Late st Contact Info) Description 05/29/2024 2:00 PM EDT Office Visit Cardiology at [address] [phone] Estiven Raza MD [facility] [place] [address] documented as of this encounter Visit Diagnoses Not on filedocumented in this encounter Care Teams Observation Assistant Relationship Specialty Start Date End Date Buddy Hicks MD [facility] [address] [facility] [place] [address] PCP - General 02/13/12 07/21/14 documented as of this encounter
--- OUTSIDE RECORDS SUMMARY | 2024-05-02 14:01 | XMS_ITS | Encounter Summary ---
Author Organization [facility] Address [facility] [place] [address] Care Team Providers Care Optical Assistant Name Role Phone Buddy Hicks MD Primary Care Provider [phone] Reason for Visit * Reason Onset Date Comments Medication Refill 04/21/2013 Encounter Details Date Type Department Care Team ([facility] Contact Info) Description 04/16/2013 Refill Internal Medicine at [facility] [address] [place] [phone] Buddy Hicks MD [facility] [place] [address] Social History Tobacco Use Types Packs/Day Years [...] Telephone Encounter - Aniya Ceja LPN - 04/21/2013 2:00 PM EDT rx called to pharmacy documented in this encounter Plan of Treatment Upcoming Encounters Date Type Department Care Team ([facility] Contact Info) Description 05/29/2024 2:00 PM EDT Office Visit Cardiology at [address] [address] Estiven Raza MD [facility] [place] [address] documented as of this encounter Visit Diagnoses Not on filedocumented in this encounter Care Teams Optical Assistant Relationship Specialty Start Date End Date Buddy Hicks MD [facility] [place] [address] PCP - General 02/13/12 07/21/14 documented as of this encounter
--- OUTSIDE RECORDS SUMMARY | 2024-05-02 14:01 | XMS_ITS | Encounter Summary ---
Author Organization [facility] [place] [address] Care Team Providers Care Clarity Specialists Name Role Phone Alexys Morales MD Primary Care Provider [phone] Reason for Visit * Reason Onset Date Comments Medication Problem 12/29/2011 Encounter Details Date Type Department Care Team (Late st Contact Info) Description 12/29/[address] [facility] [place] [address] Alexys Morales MD [facility] [place] [address] Social History Tobacco Use Types Packs/Day Years [...] Telephone Encounter - Aniya Ceja LPN - 12/29/2011 1:33 PM EDT Called to pharmacy * Telephone Encounter - Renetta Robles - 12/29/2011 1:23 PM EDT She says the pharmacy has not received her prescription. Can we check on this? documented in this encounter Plan of Treatment Upcoming Encounters Date Type Department Care Team (Late st Contact Info) Description 05/29/2024 2:00 PM EDT Office Visit Cardiology at [address] [phone] Estiven Raza MD [facility] [place] [address] documented as of this encounter Visit Diagnoses Not on filedocumented in this encounter Care Teams Clarity Specialists Relationship Specialty Start Date End Date Alexys Morales MD [facility] [place] [address] PCP - General 06/28/10 02/12/12 documented as of this encounter
--- OUTSIDE RECORDS SUMMARY | 2024-05-02 14:01 | XMS_ITS | Encounter Summary ---
Author Organization [facility] [place] [address] Care Team Providers Care Airport Ramp Agent Name Role Phone Buddy Hicks MD Primary Care Provider [phone] Reason for Visit * Reason Comments Medication Refill Encounter Details Date Type Department Care Team (Late st Contact Info) Description 01/22/2012 Refill Family [facility] [place] [address] Alexys Morales MD [facility] [place] [address] COPD (chronic obstructive pulmonary disease) Social History [...] PM EDT Office Visit Cardiology at [address] [address] Estiven Raza MD [facility] [place] [address] documented as of this encounter Visit Diagnoses Diagnosis COPD (chronic obstructive pulmonary disease) Chronic airway obstruction, not elsewhere classified documented in this encounter Care Teams Airport Ramp Agent Relationship Specialty Start Date End Date Buddy Hicks MD [facility] [place] [address] PCP - General 02/13/12 07/21/14 documented as of this encounter
--- OUTSIDE RECORDS SUMMARY | 2024-05-02 14:01 | XMS_ITS | Encounter Summary ---
Author Organization [facility] Address [facility] [place] [address] Care Team Providers Care Grinding Operator Name Role Phone Buddy Hicks MD Primary Care Provider Encounter Details Date Type Department Care Team (Late st Contact Info) Description 08/12/2013 Orders Only Family Medicine at [facility] [address] [place] [phone] Aniya Suh, ENEIDA Social History Tobacco Use Types Packs/Day Years [...] PM EDT Office Visit Cardiology at [address] [address] Estiven Raza MD [facility] [place] [place] [address] documented as of this encounter Visit Diagnoses Not on filedocumented in this encounter Care Teams Grinding Operator Relationship Specialty Start Date End Date Buddy Hicks MD [facility] [address] [facility] [place] [address] PCP - General 02/13/12 07/21/14 documented as of this encounter
--- OUTSIDE RECORDS SUMMARY | 2024-05-02 14:01 | XMS_ITS | Encounter Summary ---
Author Organization Counts Include [facility] Address [facility] [place] [address] Care Team Providers Care Supervisor Liquid Yeast Name Role Phone Buddy Hicks MD Primary Care Provider [phone] Reason for Referral * Consultation (Routine) - Closed Specialty Diagnoses / Procedures Referred By Rangel t Referred To Contact Pulmonary Disease / Pulmonology Diagnoses COPD (chronic obstructive pulmonary disease) Buddy Hicks MD [facility] [place] [address] [facility] Pulmonology [address] [place] [id number] Referral ID Status Reason Start Date Expiration Date V isits Requested Visits Authorized [id number] Closed Consult, Test & Treat 05/12/2013 11/08/2013 1 1 Reason for Visit * Reason Comments Follow-up COPD,anxiety,HTN Encounter Details Date Type Department Care Team (Late st Contact Info) Description 05/12/2013 2:05 PM EDT Follow-Up Family Medicine at [facility] [address] [place] [address] Buddy Hicks MD [facility] [place] [address] Hypertension (Primary Dx); COPD (chronic obstructive pulmonary disease); Depression; Seizure disorder; Hypothyroid Discharge Disposition: Home Social [...] Sign Reading Time Taken Comments Blood Pressure 137/50 05/12/2013 2:23 PM EDT Pulse 65 05/12/2013 2:23 PM EDT Temperature 36.7 ??C (98.1 ??F) 05/12/2013 2:23 PM ED T Respiratory Rate 18 05/12/2013 2:23 PM EDT Oxygen Saturation 98% 05/12/2013 2:23 PM EDT Inhaled Oxygen Concentration - - Weight 69.4 kg (153 lb) 05/12/2013 2:23 PM EDT Height 153 cm (5' 0.25) 05/12/2013 2:23 PM EDT Body Mass Index 29.63 05/12/2013 2:23 PM EDT documented in this encounter Patient Instructions * Patient Instructions* Buddy Hicks MD - 05/18/2013 7:19 AM EDT High Blood Pressure: Untreated high blood pressure is a leading cause of heart attacks and strokes.We can lower your chance of having a heart attack or a stroke by making sure your blood pressure stays below 140/90. Your most recent pressure readings in our office were: BP Readings from Last 3 Encounters: 05/12/13 137/50 02/04/13 113/47 11/13/12 131/54 If these numbers are not yet below [...] (so you don't have to worry about wether the batteries are good). If you buy [...] within 30 days of the purchase date.) documented in this encounter Progress Notes * Buddy Hicks MD - 05/12/2013 2:46 PM EDT Assessment/Plan A: HTN: at goal on Dyazide. BMP WNL in Nov. A: COPD: has been followed by Abhinav Albarran MD ([facility], [facility] but I have not rec'd records despite mult requests. Her med regimen continues to seem confused (she is using Albuterol qam. Also has Combivent Respimat, but doesn't use it. Not on any steroid since she D/C'd Advair at some point.) Last saw Dr. Albarran in January, and has f/u w/ him in Jul. - in light of confusing med regimen and no communication from Dr. 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 A: hypothyroid: TSH WNL in Nov. A: anxiety/insomnia/benzo dependence: Paxil changed to Celexa [address] Albarran on 04/08. (Pt believes she called his office for RF on her antidepressant, but it's unclear.) Pt feels she is doing well on this, despite her current grief. - cont Celexa 20 mg qd A: h/o colonic adenoma: tubular adenoma on colonoscopy at [facility] 03/23/08. Dr. Solis rec repeat in 5 yr. - pt due for repeat colonoscopy (noted on review of records p pt had left) A: RHM: Records from prev PCP in [facility] reviewed. No record of Td or Pneumovax. Pap neg Sep 2008. - needs Tdap and Pneumovax (did not address today) Subjective for f/u HTN, COPD, depression. Partner Apollo in February. Thank goodness for Celexa, o/w I'd be bawling my eyes out. Not eating well d/t she was accustomed to fixing meals for Apollo and herself. I don't remember to eat, and then I eat the wrong things. Sleeps well on Lorazepam 1 mg qhs. Paxil changed to Celexa by Dr. Albarran in Apr; Breathing has good days and bad days. Currently she is painting the cellar. She also notes that sheis more anxious d/t her grief, and the anxiety makes her SOB. Using Albuterol tid; not sure if she really needs it or just uses it out of habit. Has Combivent also, but prefers Albuterol. Also has Advair inhaler, but D/C'd this some time ago. Unclear if Dr. Albarran is aware of this. Social Hx Social History Narrative Apr 2012: lives in [place], [place] ([place] [facility]) partner: Apollo Dumont (d. 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 mows lawn, uses weedwhacker Objective BP 137/50 Pulse 65 Temp 36.7 ??C (98.1 ??F) (Oral) Resp 18 Ht 153 cm (5' 0.25) Wt 69.4 kg (153 lb) BMI 29.63 kg/m2 SpO2 98% Gen: NAD Lungs: CTA w/ fair air mvt Cor: RRR @ 58, nl s1s2, w/o m Ext: neg edema Please see Assessment/Plan at beginning of note. documented in this encounter Plan of Treatment Upcoming Encounters Date Type Department Care Team (Late st Contact Info) Description 05/29/2024 2:00 PM EDT Office Visit Cardiology at [address] [phone] Estiven Raza MD [facility] [place] [address] Scheduled Referrals Name Type Priority Associated Diagnoses Orde r Schedule Referral to Pulmonology Outpatient Referral Routine COPD (chronic obstructive pulmonary disease) Ordered: 05/12/2013 documented as of this encounter Visit Diagnoses Diagnosis Hypertension- Primary Unspecified essential hypertension COPD (chronic obstructive pulmonary disease) Chronic airway obstruction, not elsewhere classified Depression Depressive disorder, not elsewhere classified Seizure disorder Unspecified epilepsy without mention of intractable epilepsy Hypothyroid Unspecified hypothyroidism documented in this encounter Care Teams Supervisor Liquid Yeast Relationship Specialty Start Date End Date Buddy Hicks MD [facility] [place] [place] [address] PCP - General 02/13/12 07/21/14 documented as of this encounter
--- OUTSIDE RECORDS SUMMARY | 2024-05-02 14:01 | XMS_ITS | Encounter Summary ---
Author Organization [facility] [place] [address] Care Team Providers Care Chemical Analyst Name Role Phone Alexys Morales MD Primary Care Provider [phone] Reason for Visit * Reason Comments Medication Refill Encounter Details Date Type Department Care Team (Late st Contact Info) Description 01/10/2012 Refill Family [facility] [place] [address] Alexys Morales MD [facility] [place] [address] Social History Tobacco Use Types Packs/Day Years [...] PM EDT Office Visit Cardiology at [address] [address] Estiven Raza MD [facility] [place] [place] [address] documented as of this encounter Visit Diagnoses Not on filedocumented in this encounter Care Teams Chemical Analyst Relationship Specialty Start Date End Date Alexys Morales MD [facility] [place] [address] PCP - General 06/28/10 02/12/12 documented as of this encounter
--- OUTSIDE RECORDS SUMMARY | 2024-05-02 14:01 | XMS_ITS | Encounter Summary ---
Author Organization [facility] [place] [address] Care Team Providers Care Chief Dispatcher Service Name Role Phone Alexys Morales MD Primary Care Provider [phone] Reason for Visit * Reason Onset Date Comments Medication Refill 01/29/2012 Encounter Details Date Type Department Care Team (Late st Contact Info) Description 01/29/2012 Refill [facility] [place] [address] Alexys Morales MD [facility] [place] [address] COPD (chronic obstructive pulmonary disease) Social History [...] * Telephone Encounter - Xochitl Mehta - 02/01/2012 9:22 AM EDT Left message for call back * Telephone Encounter - Corby Finch - 01/29/2012 4:52 PM EDT The patient was hoping to get these refilled tomorrow as she has been out. I reminded her of our refill policy. Thanks Corby Shearer documented in this encounter Plan of Treatment Upcoming Encounters Date Type Department Care Team (Late st Contact Info) Description 05/29/2024 2:00 PM EDT Office Visit Cardiology at [address] [address] Estiven Raza MD [facility] [place] [address] documented as of this encounter Visit Diagnoses Diagnosis COPD (chronic obstructive pulmonary disease) Chronic airway obstruction, not elsewhere classified documented in this encounter Care Teams Chief Dispatcher Service Relationship Specialty Start Date End Date Aelxys Morales MD [facility] [place] [address] PCP - General 06/28/10 02/12/12 documented as of this encounter
--- OUTSIDE RECORDS SUMMARY | 2024-05-02 14:01 | XMS_ITS | Encounter Summary ---
Author Organization [facility] Address [facility] [place] [address] Care Team Providers Care Monogram Machine Operator Name Role Phone Buddy Hicks MD Primary Care Provider Encounter Details Date Type Department Care Team (Late st Contact Info) Description 08/12/2013 Refill Family Medicine at [facility] [address] [place] [address] [place] [address] Social History Tobacco Use Types Packs/Day Years [...] * Telephone Encounter - Litzy Ames - 08/12/2013 1:03 PM EST Pt states she is out of the medication, needs this karlie. Thank you, Litzy documented in this encounter Plan of Treatment Upcoming Encounters Date Type Department Care Team (Late st Contact Info) Description 05/29/2024 2:00 PM EDT Office Visit Cardiology at [address] [address] Estiven Raza MD [facility] [place] [address] documented as of this encounter Visit Diagnoses Not on filedocumented in this encounter Care Teams Monogram Machine Operator Relationship Specialty Start Date End Date Buddy Hicks MD [facility] [address] [facility] [place] [address] PCP - General 02/13/12 07/21/14 documented as of this encounter
--- OUTSIDE RECORDS SUMMARY | 2024-05-02 14:02 | XMS_ITS | Encounter Summary ---
Author Organization [facility] [place] [address] Care Team Providers Care Oracle Bpm Consultant Name Role Phone Alexys Morales MD Primary Care Provider [phone] Reason for Visit * Reason Comments Lupus COPD Encounter Details Date Type Department Care Team (Late st Contact Info) Description 08/24/2011 11:15 AM EST Follow-[place] [phone] Sherri Wilson MD [address] [place] [address] [place] [address] COPD (chronic obstructive pulmonary disease); Systemic lupus erythematosus; Goiter Discharge Disposition: Home Social History Tobacco Use [...] Sign Reading Time Taken Comments Blood Pressure 130/56 08/24/2011 11:31 AM EST Pulse 56 08/24/2011 11:31 AM EST Temperature 36.5 ??C (97.7 ??F) 08/24/2011 11:[address] Respiratory Rate 18 08/24/2011 11:31 AM EST Oxygen Saturation 96% 08/24/2011 11:31 AM EST Inhaled Oxygen Concentration - - Weight 72.6 kg (160 lb) 08/24/2011 11:31 AM EST Height 154.9 cm (5' 1) 08/24/2011 11:31 AM EST Body Mass Index 30.23 08/24/2011 11:31 AM EST documented in this encounter Progress Notes * Sherri Wilson MD - 08/24/2011 12:53 PM EST HISTORY OF PRESENT ILLNESS: Thanh Gonzalez is seen today for a regularly scheduled reevaluation of her lupus 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 She has a patch of alopecia in her scalp and has had discoid lesions on her eyelid. The patient has been on 200 mg of hydroxychloroquine for approximately a year at this point and is not at all concerned about her lupus. She is, however, concerned about her health in particularly her COPD. She noted that when she gets anxious, she gets short of breath, but she knows that her pulmonary function tests have shown that she has COPD. She denies cough and does have dyspnea on exertion, although this is not dramatically different from her prior state. Odors tend to bother her and make her cough. She does use her inhalers in the afternoon after she visits the chicken coop with its dust and odors. She denies any orthopnea or edema. In regards to her lupus, she has had no rash, no canker sores, no nasal sores. She feels the size of her scalp lesion had shrunk and has not had any seizures. PAST MEDICAL HISTORY: The patient reports no other changes in her past medical history. SOCIAL HISTORY: Social history reveals that her three sons live with her. 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 Her beefalo plays with Frisbee and is clearly a very smart cow. Blood pressure 130/56, pulse 56, temperature 36.5 ??C (97.7 ??F), temperature source Oral, resp. rate 18, height 154.9 cm (5' 1), weight 72.576 kg (160 lb), SpO2 96.00%. PHYSICAL EXAMINATION: On physical exam, Ms. Gonzalez looks well. Her skin is exceedingly dry. She does not have any rash. The area of hair loss is about dying side in her scalp. She does not have any oral or nasal ulcers. She does have dentures. Her lungs are clear to auscultation with maybe some fine crackles at the bases. Her cardiac exam reveals a normal S1 and S2 without S3 or S4. Her joints are unremarkable. Her thyroid is generous in size. ASSESSMENT AND PLAN: I reviewed the patient's laboratory tests from February and December as well as her chest x-ray and pulmonary function tests. We discussed these findings. I reviewed with her the need to take her antibiotic and steroids for URIs as given to her by Dr. Saldivar. We looked at her weight which is 5 pounds less than it was and her O2 sats which are good at 96%. I hope that this was helpful for her. She will continue to take her hydroxychloroquine, and I will plan to see her again in one year's time. I did check her TSH and will renew her Plaquenil. Recent Results (from the past 72 hour(s)) TSH Component Value Range ??? TSH 4.36 (*) 0.27 - 4.20 (mcIU/mL) documented in this encounter Plan of Treatment Upcoming Encounters Date Type Department Care Team (Late st Contact Info) Description 05/29/2024 2:00 PM EDT Office Visit Cardiology at [address] [address] Estiven Raza MD [facility] [place] [address] documented as of this encounter Procedures Procedure Name Priority Date/Time Associated Diagnosis Comments TSH Routine 08/24/2011 1:00 PM EST Goiter documented in this encounter Results * (ABNORMAL) TSH (08/24/2011 1:00 PM EST) Thyroid Stimulating Hormone 4.36(H) 0.27 - 4.20 mcIU/mL [facility] Blood specimen (specimen) 08/24/2011 1:00 PM EST 08/24/2011 1:05 PM EST Sherri Wilson MD CHEMISTRY ORDERABLES [facility] documented in this encounter Visit Diagnoses Diagnosis COPD (chronic obstructive pulmonary disease) Chronic airway obstruction, not elsewhere classified Systemic lupus erythematosus Goiter Goiter, unspecified documented in this encounter Care Teams Oracle Bpm Consultant Relationship Specialty Start Date End Date Alexys Morales MD [facility] [place] [address] PCP - General 06/28/10 02/12/12 documented as of this encounter
--- OUTSIDE RECORDS SUMMARY | 2024-05-02 14:02 | XMS_ITS | Encounter Summary ---
Author Organization [facility] Address [facility] [place] [address] Care Team Providers Care Stock Hanger Name Role Phone Buddy Hicks MD Primary Care Provider Encounter Details Date Type Department Care Team (Late st Contact Info) Description 02/21/2007 [place] [address] Amy Dewey MD [facility] [place] [address] Social History Tobacco Use Types Packs/Day Years Used Date Smoking Tobacco: Never Assessed Sex and Gender Information Value Date Recorded Sex Assigned at Not on file Gender Identity Not on file Sexual Orientation Not on file documented as of this encounter Plan of Treatment Upcoming Encounters Date Type Department Care Team (Late st Contact Info) Description 05/29/2024 2:00 PM EDT Office Visit Cardiology at [address] [phone] Estiven Raza MD [facility] [address] documented as of this encounter Procedures Procedure Name Priority Date/Time Associated Diagnosis Comments FILM LIBRARY STORAGE ONLY DX CHEST Routine 02/21/2007 3:44 PM EDT documented in this encounter Results * Film Library- Storage only DX Chest (02/21/2007 3:44 PM EDT) 02/21/2007 3:44 PM EDT Narrative RAD - 02/17/2014 10:40 AM EDT This is a non-reportable exam. Procedure Note Noel Elizabeth - 02/17/2014 This is a non-reportable exam. Amy Dewey MD IMG FILM LIBRARY ORDERABLES RAD [id number] [place] [address] documented in this encounter Visit Diagnoses Not on filedocumented in this encounter Care Teams Stock Hanger Relationship Specialty Start Date End Date Buddy Hicks MD [facility] [place] [address] PCP - General 02/13/12 07/21/14 documented as of this encounter
--- OUTSIDE RECORDS SUMMARY | 2024-05-02 14:02 | XMS_ITS | Encounter Summary ---
Author Organization [facility] Address [facility] [place] [address] Care Team Providers Care Ballet Teacher Name Role Phone Alexys Morales MD Primary Care Provider [phone] Reason for Visit * Reason Comments Shortness of Breath Encounter Details Date Type Department Care Team (Late st Contact Info) Description 12/20/2011 1:45 PM EDT Follow-[place] [phone] SCHEDULE 1, PFT Jaswinder Casas MD [facility] [place] [address] SOB (shortness of breath) (Primary Dx) Discharge [...] Sign Reading Time Taken Comments Blood Pressure 147/75 12/20/2011 2:16 PM EDT Pulse 77 12/20/2011 2:16 PM EDT Temperature - - Respiratory Rate - - Oxygen Saturation 96% 12/20/2011 2:16 PM EDT RA Inhaled Oxygen Concentration - - Weight 72.5 kg (159 lb 14.4 oz) 12/20/2011 2:16 PM EDT Height 154.2 cm (5' 0.7) 12/20/2011 2:16 PM EDT Body Mass Index 30.51 12/20/2011 2:16 PM EDT documented in this encounter Progress Notes * Jaswinder Casas MD - 12/20/2011 6:10 PM EDT This is a patient with moderate COPD under good control with Advair, Spiriva and albuterol. She returns today for routine followup. When I last saw her, I became concerned that her chickens were producing large amounts of dust and that this was affecting her breathing. She noted temporal exacerbations associated with exposure to these animals. She has since gotten rid of all of them with some improvement. Interestingly, she has gained 5-6 pounds. Subjectively, she is concerned about her breathing. She feels as if she gets short of breath carrying objects and especially upstairs. She thinks this is worse but cannot tell. She notes that her activity level has increased due to the mild winter and increased spring and thinks I am trying to do too much. She denies fevers or chills or sweats, cough, chest pain, wheezing. Blood pressure 147/75, pulse 77, height 154.2 cm (5' 0.7), weight 72.53 kg (159 lb 14.4 oz), SpO2 96.00%. She states in full sentences and has no cough or wheeze. She is mildly anxious until she sees her pulmonary function tests at which point she becomes much more relaxed. Good air movement bilaterally, no wheezes or rhonchi Regular rate and rhythm Mildly obese, nontender No rash or edema Ulnar function testing performed today is compared to previous testing from October 2010 Forced vital capacity has increased from 2.5-2.92 or 103% predicted. FEV1 has increased from 1.09-1.29 or 59% predicted. The ratio is 44. Diffusing capacity has increased from 69% to 77%. This represents moderate obstructive lung disease with a very mildly depressed diffusing capacity, significantly improved compared to one year ago Assessment/plan Moderate COPD under good control, actually with significant improvement following removal of livestock/fowl. I suspect there was some component of reactive airways disease possible hypersensitivity pneumonitis that appears to have improved following removal of the chickens. She tolerates the Advair and Spiriva well except for occasional hoarseness. We have decided that she can stop the Advair and see what her symptoms feel like I will schedule followup in 4 months with pulmonary function testing at that time documented in this encounter Plan of Treatment Upcoming Encounters Date Type Department Care Team (Late st Contact Info) Description 05/29/2024 2:00 PM EDT Office Visit Cardiology at [address] [phone] Estiven Raza MD [facility] [place] [address] documented as of this encounter Visit Diagnoses Diagnosis SOB (shortness of breath)- Primary Shortness of breath documented in this encounter Care Teams Ballet Teacher Relationship Specialty Start Date End Date Alexys Morales MD [facility] [place] [address] PCP - General 06/28/10 02/12/12 documented as of this encounter
--- OUTSIDE RECORDS SUMMARY | 2024-05-02 14:02 | XMS_ITS | Encounter Summary ---
Author Organization [facility] [place] [address] Care Team Providers Care Tractor Engine Assembler Name Role Phone Alexys Morales MD Primary Care Provider [phone] Encounter Details Date Type Department Care Team (Late st Contact Info) Description 06/21/2011 Refill Family Medicine [facility] [address] Alexys Morales MD [facility] [place] [address] Social History Tobacco Use Types Packs/Day Years [...] PM EDT Office Visit Cardiology at [address] [phone] Estiven Raza MD [facility] [place] [address] documented as of this encounter Visit Diagnoses Not on filedocumented in this encounter Care Teams Tractor Engine Assembler Relationship Specialty Start Date End Date Alexys Morales MD [facility] [address] PCP - General 06/28/10 02/12/12 documented as of this encounter
--- OUTSIDE RECORDS SUMMARY | 2024-05-02 14:02 | XMS_ITS | Encounter Summary ---
Author Organization [facility] [place] [address] Care Team Providers Care Cycle Liaison Name Role Phone Alexys Morales MD Primary Care Provider [phone] Reason for Visit * Reason Onset Date Comments Medication Refill 12/19/2010 Encounter Details Date Type Department Care Team (Late st Contact Info) Description 12/15/2010 Refill Family [facility] [place] [address] Alexys Morales MD [facility] [place] [address] Social History Tobacco Use Types Packs/Day Years Used Date Smoking Tobacco: Former Cigarettes Alcohol Use Standard Drinks/Week Comments No 0 [...] PM EDT Office Visit Cardiology at [address] [address] Estiven Raza MD [facility] [place] [address] documented as of this encounter Visit Diagnoses Not on filedocumented in this encounter Care Teams Cycle Liaison Relationship Specialty Start Date End Date Alexys Morales MD [facility] [address] PCP - General 06/28/10 02/12/12 documented as of this encounter
--- OUTSIDE RECORDS SUMMARY | 2024-05-02 14:02 | XMS_ITS | Encounter Summary ---
Author Organization [facility] Address [facility] [place] [address] Care Team Providers Care Blood Collector Name Role Phone Alexys Morales MD Primary Care Provider [phone] Reason for Visit * Reason Onset Date Comments Medication Problem 04/12/2011 Encounter Details Date Type Department Care Team (Late st Contact Info) Description 04/12/[address] [place] [address] Alexys Morales MD [facility] [place] [address] Medication Problem Social History Tobacco Use Types Packs/Day Years [...] Miscellaneous Notes * Telephone Encounter - Corby Baker - 04/12/2011 10:48 AM EDT Please re-send script for lorazepam to [facility] [place] in [place] - patient was told they didn't recv it. Needs as soon as possible. Thanks Corby Jalloh documented in this encounter Plan of Treatment Upcoming Encounters Date Type Department Care Team (Late st Contact Info) Description 05/29/2024 2:00 PM EDT Office Visit Cardiology at [address] [phone] Estiven Raza MD [facility] [place] [address] documented as of this encounter Visit Diagnoses Not on filedocumented in this encounter Care Teams Blood Collector Relationship Specialty Start Date End Date Alexys Morales MD [facility] [place] [address] PCP - General 06/28/10 02/12/12 documented as of this encounter
--- OUTSIDE RECORDS SUMMARY | 2024-05-02 14:02 | XMS_ITS | Encounter Summary ---
Author Organization [facility] Address [facility] [place] [address] Care Team Providers Care Lion Tamer Name Role Phone Unavailable Primary Care Provider Unavailabl e Encounter Details Date Type Department Care Team (Late st Contact Info) Description 06/07/2010 10:00 AM EDT Follow-Up [facility] [place] [address] Alexys Morales MD [facility] [place] [address] Social History Tobacco Use Types Packs/Day Years [...] PM EDT Office Visit Cardiology at [address] [phone] Estiven Raza MD [facility] [place] [address] documented as of this encounter Visit Diagnoses Not on filedocumented in this encounter
--- OUTSIDE RECORDS SUMMARY | 2024-05-02 14:02 | XMS_ITS | Encounter Summary ---
Author Organization [facility] Address [facility] [place] [address] Care Team Providers Care Rotary Dryer Operator Name Role Phone Alexys Morales MD Primary Care Provider [phone] Reason for Visit * Reason Comments COPD Encounter Details Date Type Department Care Team (Late st Contact Info) Description 10/02/2011 8:45 AM EST [place] [phone] Jaswinder Casas MD [facility] [place] [address] COPD (chronic obstructive pulmonary disease) (Primary Dx) Discharge Disposition: Home Social History [...] Sign Reading Time Taken Comments Blood Pressure 128/68 10/02/2011 8:49 AM EST Pulse 70 10/02/2011 8:49 AM EST Temperature - - Respiratory Rate 18 10/02/2011 8:49 AM EST Oxygen Saturation 96% 10/02/2011 8:49 AM EST Inhaled Oxygen Concentration - - Weight 70.3 kg (155 lb) 10/02/2011 8:49 AM EST Height 154.9 cm (5' 1) 10/02/2011 8:49 AM EST Body Mass Index 29.29 10/02/2011 8:49 AM EST documented in this encounter Progress Notes * Jaswinder Casas MD - 10/02/2011 9:47 AM EST This is a patient with COPD with some component of environmental exposure - 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 I last saw her in May 2011 Since that time her breathing has been going very well. She has been on Advair and Spiriva and albuterol. Approximately 3 days ago, she had an episode of palpitations and lightheadedness and was diagnosed with supraventricular tachycardia. She has a remote history of this has not been an issue recently. She went to [facility] where she was given 6 mg of potassium IV which converted her right away. She has had no recurrences. On further questioning, it appears that she has had a moderate gastrointestinal illness over the last week or more and has been somewhat dehydrated. She also was taking some medicine, the name of which she cannot remember and which I do not have access to come for her gout. It is possible that whatever medicine she took for her dehydration may help lower her threshold for her tachycardia. In addition, she was recently found to be hypothyroid and has been started on Synthroid. I suppose this also may have had an effect however her TSH was mildly high during her recent admission to [facility]. Otherwise, she feels well. She says her breathing is okay. She says it has been better since she got rid of most of the chickens and no longer goes into the chicken coop. BP 128/68 Pulse 70 Resp 18 Ht 154.9 cm (5' 1) Wt 70.308 kg (155 lb) BMI 29.29 kg/m2 SpO2 96% She looks well although she complains of being somewhat tired. She speaks in full sentences withoutcough or wheeze. She is quite animated Good breath sounds bilaterally, no wheezes or rhonchi Regular rate and rhythm, no ectopy Abdomen mildly obese, otherwise benign No edema Assessment/plan: Multiple medical problems including basically stable COPD well controlled on Advair, Spiriva and albuterol. Recent episode of gastrointestinal illness and supraventricular tachycardia. Due to her propensity for supraventricular tachycardia, I would like to change her albuterol to Atrovent. I also would like for her to stay out of the chicken coop completely as this seems to be a trigger for shortness of breath. I have warned her about lightheadedness and discontinuing any driving if she happens to get lightheaded or heart palpitations. I would like to follow her up in 2 months, sooner if symptoms dictate documented in this encounter Plan of Treatment Upcoming Encounters Date Type Department Care Team (Late st Contact Info) Description 05/29/2024 2:00 PM EDT Office Visit Cardiology at [address] [address] Estiven Raza MD [facility] [place] [address] documented as of this encounter Visit Diagnoses Diagnosis COPD (chronic obstructive pulmonary disease)- Primary Chronic airway obstruction, not elsewhere classified documented in this encounter Care Teams Rotary Dryer Operator Relationship Specialty Start Date End Date Alexys Morales MD [facility] [place] [address] PCP - General 06/28/10 02/12/12 documented as of this encounter
--- OUTSIDE RECORDS SUMMARY | 2024-05-02 14:02 | XMS_ITS | Referral Summary ---
Author Organization [facility] Address [address] [place] [address] Care Team Providers Care Middle School Baseball Coach Name Role Phone Kiko Solis MD Primary Care Provider [phone] Social History Tobacco Use Types Packs/Day Years Used Date Smoking Tobacco: Never Assessed Sex and Gender Information Value Date Recorded Sex Assigned at Not on file Gender Identity Not on file Sexual Orientation Not on file Plan of Treatment Not on file Care Teams Middle School Baseball Coach Relationship Specialty Start Date End Date Kiko Solis MD [facility] [address] [place] [address] PCP - General 06/17/15
--- OUTSIDE RECORDS SUMMARY | 2024-05-02 14:02 | XMS_ITS | Encounter Summary ---
Author Organization [place] [address] Care Team Providers Care Life Management Teacher Name Role Phone Alexys Morales MD Primary Care Provider [phone] Encounter Details Date Type Department Care Team (Late st Contact Info) Description 09/04/2011 Orders [place] [phone] Sherri Wilson MD [address] [place] [address] [place] [address] Social History Tobacco Use Types Packs/Day Years [...] PM EDT Office Visit Cardiology at [address] [phone] Estiven Raza MD [facility] [place] [address] documented as of this encounter Visit Diagnoses Not on filedocumented in this encounter Care Teams Life Management Teacher Relationship Specialty Start Date End Date Alexys Morales MD [facility] [place] [address] PCP - General 06/28/10 02/12/12 documented as of this encounter
--- OUTSIDE RECORDS SUMMARY | 2024-05-02 14:02 | XMS_ITS | Encounter Summary ---
Author Organization [facility] Address [facility] [place] [address] Care Team Providers Care Hotel Front Office Manager Name Role Phone Alexys Morales MD Primary Care Provider [phone] Reason for Visit * Reason Onset Date Comments Medication Refill 03/14/2011 [facility] in [facility] called this in because last one did not make it to the pharmacy. Encounter Details Date Type Department Care Team (Late st Contact Info) Description 03/14/2011 Refill Family [facility] [place] [address] Alexys Morales MD [facility] [place] [address] Social History Tobacco Use Types Packs/Day Years [...] PM EDT Office Visit Cardiology at [address] [phone] Estiven Raza MD [facility] [place] [address] documented as of this encounter Visit Diagnoses Not on filedocumented in this encounter Care Teams Hotel Front Office Manager Relationship Specialty Start Date End Date Alexys Morales MD [facility] [place] [address] PCP - General 06/28/10 02/12/12 documented as of this encounter
--- OUTSIDE RECORDS SUMMARY | 2024-05-02 14:02 | XMS_ITS | Encounter Summary ---
Author Organization [facility] Address [address] [place] [address] Care Team Providers Care Band And Cuff Cutter Name Role Phone Kiko Solis MD Primary Care Provider [phone] Encounter Details Date Type Department Care Team (Late st Contact Info) Description 07/07/2021 Lab Requisition [facility] Pathology & Laboratory Medicine - [address] [address] Outr Resulting Lab, Provider Social History Tobacco Use Types Packs/Day Years Used Date Smoking Tobacco: Never Assessed Sex and Gender Information Value Date Recorded Sex Assigned at Not on file Gender Identity Not on file Sexual Orientation Not on file documented as of this encounter Plan of Treatment Not on file documented as of this encounter Procedures Procedure Name Priority Date/Time Associated Diagnosis Comments ZZCOVID-19 TEST UVC LAB PCR Today 07/06/2021 13:35 EST COVID-19 TESTING Routine 07/06/2021 13:3 5 EST documented in this encounter Results * COVID-19 TEST [facility] LAB PCR (07/06/2021 13:35 EST) Swab 07/06/2021 13:3 5 EST 07/07/2021 17:09 EST Provider Outr Resulting Lab MICROBIOLOGY - GENERAL ORDERABLES [facility] [address] [place] [address] * COVID-19 TESTING (07/06/2021 13:35 EST) COVID-19 rt-PCR Result Negative Negative 07/08/2021 11:45 EST [facility] Comment: This test has not been FDA cleared or approved. This test has been authorized by FDA under an EUA for use by authorized laboratories. This test has been authorized only for detection of nucleic acid from 2019-nCoV, not for any other viruses or pathogens. This test is only authorized for the duration of the declaration that circumstances exist justifying the authorization of emergency use of in vitro diagnostic tests for detection and/or diagnosis of 2019-nCoV under section 564(b)(1) of Act, 21 U.S.C ?? 360bbb-3(b) (1), unless the authorization is terminated or revoked sooner. Negative results do not preclude 2019-nCoV infection and should not be used as the sole basis for treatment or other patient management decisions. Negative results must be combined with clinical observations, patient history, and epidemiological information. Testing was performed using the kris SARS-CoV-2 assay ([employer] on the Kris 6800 System Performing Lab Kris [address] [facility] Lab 07/08/2021 11:45 EST [facility] Swab 07/06/2021 13:3 5 EST 07/07/2021 17:09 EST Provider Outr Resulting Lab MICROBIOLOGY - GENERAL ORDERABLES [facility] [address] [place] [address] documented in this encounter Visit Diagnoses Not on filedocumented in this encounter Care Teams Band And Cuff Cutter Relationship Specialty Start Date End Date Kiko Solis MD [facility] [address] [place] [address] PCP - General 06/17/15 documented as of this encounter
--- OUTSIDE RECORDS SUMMARY | 2024-05-02 14:02 | XMS_ITS | Encounter Summary ---
Author Organization [facility] [place] [address] Care Team Providers Care Machine Operator Cane Cutter Name Role Phone Alexys Morales MD Primary Care Provider [phone] Encounter Details Date Type Department Care Team (Late st Contact Info) Description 07/26/2011 Refill Family [facility] [place] [address] Alexsy Morales MD [facility] [place] [address] Social History Tobacco Use Types Packs/Day Years [...] 2:00 PM EDT Office Visit Cardiology at [address] [address] Estiven Raza MD [facility] [place] [address] documented as of this encounter Visit Diagnoses Not on filedocumented in this encounter Care Teams Machine Operator Cane Cutter Relationship Specialty Start Date End Date Alexys Morales MD [place] [address] PCP - General 06/28/10 02/12/12 documented as of this encounter
--- OUTSIDE RECORDS SUMMARY | 2024-05-02 14:02 | XMS_ITS | Encounter Summary ---
Author Organization [facility] [place] [address] Care Team Providers Care Seamark Advanced Operator Maintainer Name Role Phone Alexys Morales MD Primary Care Provider [phone] Encounter Details Date Type Department Care Team (Late st Contact Info) Description 04/11/2011 Refill Family Medicine at [facility]Note 2] [place] [address] Alexys Morales MD [facility] [address] Social History Tobacco Use Types Packs/Day Years [...] encounter Miscellaneous Notes * Telephone Encounter - Diana Bellamy - 04/11/2011 9:05 AM EDT Patient needs 3 refills on the listed medication. She says she always has trouble with this pharmacy-[facility] in [place], [place]. Thank you Diana Bellamy documented in this encounter Plan of Treatment Upcoming Encounters Date Type Department Care Team (Late st Contact Info) Description 05/29/2024 2:00 PM EDT Office Visit Cardiology at [address] [phone] Estiven Raza MD [facility] [place] [address] documented as of this encounter Visit Diagnoses Not on filedocumented in this encounter Care Teams Seamark Advanced Operator Maintainer Relationship Specialty Start Date End Date Alexys Morales MD [facility] [address] PCP - General 06/28/10 02/12/12 documented as of this encounter
--- OUTSIDE RECORDS SUMMARY | 2024-05-02 14:02 | XMS_ITS | Clinical Summary ---
Author Organization [facility] Address [address] [place] [address] Care Team Providers Care Senior Etl Developer Name Role Phone Kiko Solis MD Primary Care Provider Social History Tobacco Use Types Packs/Day Years Used Date Smoking Tobacco: Never Assessed Sex and Gender Information Value Date Recorded Sex Assigned at Not on file Gender Identity Not on file Sexual Orientation Not on file Plan of Treatment Health Maintenance Due Date Last Done Comments Hepatitis C Screen 1950 RSV Immunization ( o r 60+ Years) (1 - 1-dose 60+ series) 2008 Fall Risk Screening 2013 COVID-19 Vaccine (24 season) 2023 Care Teams Senior Etl Developer Relationship Specialty Start Date End Date Kiko Solis MD [facility] [address]BE[address] [place] [address] PCP - General 06/17/15
--- OUTSIDE RECORDS SUMMARY | 2024-05-02 14:02 | XMS_ITS | Encounter Summary ---
Author Organization [facility] Address [address] [place] [address] Care Team Providers Care Cafe Assistant Name Role Phone Kiko Solis MD Primary Care Provider [phone] Encounter Details Date Type Department Care Team (Late st Contact Info) Description 05/07/2020 Lab Requisition [facility] Pathology & Laboratory Medicine - [address] [id number] Outr Resulting Lab, Provider Social History Tobacco [...] Priority Date/Time Associated Diagnosis Comments ZZCOVID-19 TEST [facility] PCR Today 05/07/2020 18:05 EDT COVID-19 TESTING Routine 05/07/2020 18:0 5 EDT documented in this encounter Results * COVID-19 [facility] (05/07/2020 18:05 EDT) Swab ENTIRE NASOPHARYNX / Unknown 05/07/2020 18:05 EDT 05/08/2020 8:57 EDT Provider Outr Resulting Lab MICROBIOLOGY - GENERAL ORDERABLES [facility] [address] [place] [address] * COVID-19 TESTING (05/07/2020 18:05 EDT) COVID-19 rt-PCR Result Negative Negative 05/08/2020 12:16 EDT [facility] Comment: This test has not [...] clinical observations, patient history, and epidemiological information. Performed on the Videdressingher Fusion instrument Performing Lab [place] [facility] 05/08/2020 12:16 EDT [facility] Swab 05/07/2020 18:0 5 EDT 05/08/2020 8:57 EDT Provider Outr Resulting Lab MICROBIOLOGY - GENERAL ORDERABLES [facility] [address] [place] [address] documented in this encounter Visit Diagnoses Not on filedocumented in this encounter Care Teams Cafe Assistant Relationship Specialty Start Date End Date Kiko Solis MD [facility] [address] [place] [address] PCP - General 06/17/15 documented as of this encounter
--- OUTSIDE RECORDS SUMMARY | 2024-05-02 14:02 | XMS_ITS | Encounter Summary ---
Author Organization [facility] [place] [address] Care Team Providers Care Auto Air Conditioning Mechanic Name Role Phone Alexys Morales MD Primary Care Provider Reason for Visit * Reason Onset Date Comments Medication Refill 10/04/2011 Encounter Details Date Type Department Care Team (Late st Contact Info) Description 10/04/2011 Refill Family [facility] [place] [address] Alexys Morales MD [facility] [place] [address] Social History Tobacco Use Types Packs/Day Years [...] PM EDT Office Visit Cardiology at [address] [address] Estiven Raza MD [facility] [place] [address] documented as of this encounter Visit Diagnoses Not on filedocumented in this encounter Care Teams Auto Air Conditioning Mechanic Relationship Specialty Start Date End Date Alexys Morales MD [facility] [place] [address] PCP - General 06/28/10 02/12/12 documented as of this encounter
--- OUTSIDE RECORDS SUMMARY | 2024-05-02 14:02 | XMS_ITS | Encounter Summary ---
Author Organization [facility] Address [facility] [place] [address] Care Team Providers Care First Line Production Supervisor Name Role Phone Alexys Morales MD Primary Care Provider [phone] Reason for Visit * Reason Onset Date Comments Medication Problem 07/28/2011 Please refax script for Lorazepam to [facility] in [facility]. Encounter Details Date Type Department Care Team (Late st Contact Info) Description 07/28/2011 Refill Family [place] [address] Alexys Morales MD [facility] [place] [address] Social History Tobacco Use Types Packs/Day Years [...] Miscellaneous Notes * Telephone Encounter - Heidy Rodgers LPN - 07/28/2011 2:40 PM EST Called in script. * Telephone Encounter - Corby Finch - 07/28/2011 10:00 AM EST Patient called regarding her script for Lorazepam. It has not made it to the pharmacy yet. Can someone please refax to [phone]. [facility] in [place], [place]. Thanks Corby Shearer documented in this encounter Plan of Treatment Upcoming Encounters Date Type Department Care Team (Late st Contact Info) Description 05/29/2024 2:00 PM EDT Office Visit Cardiology at [address] [address] Estiven Raza MD [facility] [place] [address] documented as of this encounter Visit Diagnoses Not on filedocumented in this encounter Care Teams First Line Production Supervisor Relationship Specialty Start Date End Date Alexys Morales MD [facility] [place] [address] PCP - General 06/28/10 02/12/12 documented as of this encounter
--- OUTSIDE RECORDS SUMMARY | 2024-05-02 14:02 | XMS_ITS | Encounter Summary ---
Author Organization [facility] Address [facility] [place] [address] Care Team Providers Care Senior Microstrategy Developer Name Role Phone Alexys Morales MD Primary Care Provider [phone] Encounter Details Date Type Department Care Team (Late st Contact Info) Description 11/02/2010 9:45 AM EDT [place] [phone] Sherri Wilson MD [address] [place] [address] [place] [address] Discharge Disposition: Home Social History Tobacco Use [...] PM EDT Office Visit Cardiology at [address] [phone] Estiven Raza MD [facility] [place] [address] documented as of this encounter Visit Diagnoses Not on filedocumented in this encounter Care Teams Senior Microstrategy Developer Relationship Specialty Start Date End Date Alexys Morales MD [facility] [place] [address] PCP - General 06/28/10 02/12/12 documented as of this encounter
--- OUTSIDE RECORDS SUMMARY | 2024-05-02 14:02 | XMS_ITS | Encounter Summary ---
Author Organization [facility] [place] [address] Care Team Providers Care Registration Representative Name Role Phone Alexys Morales MD Primary Care Provider [phone] Reason for Visit * Reason Comments Lupus Encounter Details Date Type Department Care Team (Late st Contact Info) Description 02/16/2011 9:45 AM EDT [place] [phone] Sherri Wilson MD [address] [place] [address] [place] [address] Systemic lupus erythematosus; Fatigue; Therapeutic drug monitoring Discharge Disposition: Home Social History Tobacco Use [...] Sign Reading Time Taken Comments Blood Pressure 130/69 02/16/2011 10:19 AM EDT Pulse 70 02/16/2011 10:19 AM EDT Temperature 36.9 ??C (98.4 ??F) 02/16/2011 10:19 AM E DT Respiratory Rate - - Oxygen Saturation 97% 02/16/2011 10:19 AM EDT Inhaled Oxygen Concentration - - Weight 74.8 kg (165 lb) 02/16/2011 10:19 AM EDT Height 153.7 cm (5' 0.5) 02/16/2011 10:19 AM ED T Body Mass Index 31.69 02/16/2011 10:19 AM EDT documented in this encounter Progress Notes * Sherri Wilson MD - 02/16/2011 2:21 PM EDT Thanh Gonzalez is seen today to promotions team leader whether there has been any adverse affect of reducing her hydroxychloroquine from 400 to 200 mg a day. The patient was last seen on 11/02/2010 and doing well on 400 mg. She has reduced the dose to 200 mg per day and generally has had no increase in her rash, photosensitivity, or other symptoms. She does report one episode of puffy face and eyes which increased within one hour and one does not specifically connect it with sun exposure or other problem. She thinks her alopecia spot in her scalp is actually shrinking in size. She has not had any canker sores or pleurisy though she does report some GERD. The only cloud on the horizon is that she was sick for two weeks approximately one month ago with fever and feeling lousy. She has no localizing symptoms. In December, she was seen Dr. Morales who looked at her laboratory tests and on the basis of an elevated white blood count and slight left shift was treated with antibiotics. She was seen yesterday by Dr. Morales's office and had some laboratory tests done that were completely normal and a chest x-ray that demonstrated no pulmonary or cardiac abnormalities. She never had any pulmonary symptoms. The patient reports no other changes in her past medical history. Social history reveals that her son is a source of stress as he is going through some hard times. She brought with her pictures of her family and grandchildren as well as her beefalo that was born on October 04. Blood pressure 130/69, pulse 70, temperature 36.9 ??C (98.4 ??F), temperature source Oral, height 1.537 m (5' 0.5), weight 74.844 kg (165 lb), SpO2 97.00%. On physical exam, Thanh Gonzalez looks well. She does not have any facial rash. She is tanned. Her patch of alopecia is present in the scalp, and there is hair around the periphery, but not in the center. She does have some telangiectasias over the cheeks, but no actual rash. Joint exam of the upper and lower extremities bilaterally is unremarkable. My impression is that Thanh is doing well on 200 mg of Plaquenil. I am hopeful that her episode in December was not indicative of any lupus sort of flare. There certainly are no residual symptoms that would suggest that. I recommended that I would see the patient again in six months' time and she knows to call me if there are changes prior to that. documented in this encounter Plan of Treatment Upcoming Encounters Date Type Department Care Team (Late st Contact Info) Description 05/29/2024 2:00 PM EDT Office Visit Cardiology at [address] [phone] Estiven Raza MD [facility] [place] [address] documented as of this encounter Visit Diagnoses Diagnosis Systemic lupus erythematosus Fatigue Other malaise and fatigue Therapeutic drug monitoring Encounter for therapeutic drug monitoring documented in this encounter Care Teams Registration Representative Relationship Specialty Start Date End Date Alexys Morales MD [facility] [place] [address] PCP - General 06/28/10 02/12/12 documented as of this encounter
--- OUTSIDE RECORDS SUMMARY | 2024-05-02 14:02 | XMS_ITS | Encounter Summary ---
Author Organization [facility] [place] [address] Care Team Providers Care Bridge Engineer Name Role Phone Alexys Morales MD Primary Care Provider [phone] Encounter Details Date Type Department Care Team (Late st Contact Info) Description 08/29/2011 Refill Family [facility] [place] [address] Alexys Morales MD [facility] [place] [address] Social History Tobacco Use Types Packs/Day Years [...] PM EDT Office Visit Cardiology at [address] [phone] Estiven Raza MD [facility] [place] [address] documented as of this encounter Visit Diagnoses Not on filedocumented in this encounter Care Teams Bridge Engineer Relationship Specialty Start Date End Date Alexys Morales MD [place] [address] PCP - General 06/28/10 02/12/12 documented as of this encounter
--- OUTSIDE RECORDS SUMMARY | 2024-05-02 14:02 | XMS_ITS | Encounter Summary ---
Author Organization [facility] Address [facility] [place] [address] Care Team Providers Care Freight Rate Analyst Name Role Phone Alexys Morales MD Primary Care Provider [phone] Encounter Details Date Type Department Care Team (Late st Contact Info) Description 02/15/2011 [place] [address] Malena Dean RN Social History Tobacco Use Types Packs/Day [...] 2:00 PM EDT Office Visit Cardiology at [address] [address] Estiven Raza MD [facility] [place] [address] documented as of this encounter Visit Diagnoses Not on filedocumented in this encounter Care Teams Freight Rate Analyst Relationship Specialty Start Date End Date Alexys Morales MD [facility] [place] [address] PCP - General 06/28/10 02/12/12 documented as of this encounter
--- OUTSIDE RECORDS SUMMARY | 2024-05-02 14:02 | XMS_ITS | Encounter Summary ---
Author Organization [facility] Address [facility] [place] [address] Care Team Providers Care Supervisor Vat House Name Role Phone Alexys Morales MD Primary Care Provider [phone] Reason for Visit * Reason Comments Follow-up Encounter Details Date Type Department Care Team (Late st Contact Info) Description 05/15/2011 10:15 AM EDT [place] [phone] Jaswinder Casas MD [facility] [place] [address] SOB (shortness of breath) (Primary Dx) Discharge [...] Sign Reading Time Taken Comments Blood Pressure 150/61 05/15/2011 10:11 AM EDT Pulse 63 05/15/2011 10:11 AM EDT Temperature - - Respiratory Rate 16 05/15/2011 10:11 AM EDT Oxygen Saturation 98% 05/15/2011 10:11 AM EDT Inhaled Oxygen Concentration - - Weight 74.8 kg (165 lb) 05/15/2011 10:11 AM EDT Height 154.9 cm (5' 1) 05/15/2011 10:11 AM EDT Body Mass Index 31.18 05/15/2011 10:11 AM EDT documented in this encounter Progress Notes * Jaswinder Casas MD - 05/15/2011 11:44 AM EDT This is a patient with moderately severe COPD who returns today for routine followup. She has been doing well. She notes her son her significant other are experiencing colds currentlyand that she is also having slightly increased cough and slightly increased shortness of breath. She worries she is getting a little bit worse. She denies fevers or change in sputum production. She continues to use Spiriva, Advair, Proventil 1-2 times per day, and Ativan at night for anxiety. 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 Blood pressure 150/61, pulse 63, resp. rate 16, height 154.9 cm (5' 1), weight 74.844 kg (165 lb),SpO2 98.00%. She speaks in full sentences and has no cough or wheeze. She looks quite good Good air movement with slightly prolonged expiratory phase, no wheezes Regular rate and rhythm Abdomen is benign She has no rash or edema although she has several upper extremity bruises which she says are due [place]working [place] Assessment/plan Moderately severe COPD well controlled on a moderate regimen. She has had her flu shot I will give her a prescription for azithromycin and Solu-Medrol in order to avoid a COPD exacerbation. I like to see her back in 3-4 months, sooner as symptoms dictate. In addition, I again gave her my cell phone to make sure that she knows to call me with any issues documented in this encounter Plan of Treatment Upcoming Encounters Date Type Department Care Team (Late st Contact Info) Description 05/29/2024 2:00 PM EDT Office Visit Cardiology at [address] [phone] Estiven Raza MD [facility] [place] [address] documented as of this encounter Visit Diagnoses Diagnosis SOB (shortness of breath)- Primary Shortness of breath documented in this encounter Care Teams Supervisor Vat House Relationship Specialty Start Date End Date Alexys Morales MD [facility] [place] [address] PCP - General 06/28/10 02/12/12 documented as of this encounter
--- OUTSIDE RECORDS SUMMARY | 2024-05-02 14:02 | XMS_ITS | Encounter Summary ---
Author Organization [facility] [place] [address] Care Team Providers Care Desk Operator Name Role Phone Alexys Morales MD Primary Care Provider [phone] Reason for Visit * Reason Onset Date Comments Medication Refill 11/16/2011 Encounter Details Date Type Department Care Team (Late Contact Info) Description 11/16/[address] [facility] [place] [address] Alexys Morales MD [facility] [place] [address] Social History Tobacco Use Types Packs/Day Years [...] Miscellaneous Notes * Telephone Encounter - Makenzie Mancia - 11/16/2011 10:15 AM EDT 1 pill left, please send as soon as possible, I did remind of 72 hour policy Thanks documented in this encounter Plan of Treatment Upcoming Encounters Date Type Department Care Team (Late st Contact Info) Description 05/29/2024 2:00 PM EDT Office Visit Cardiology at [address] [address] Estiven Raza MD [facility] [place] [address] documented as of this encounter Visit Diagnoses Not on filedocumented in this encounter Care Teams Desk Operator Relationship Specialty Start Date End Date Alexys Morales MD [facility] [place] [address] PCP - General 06/28/10 02/12/12 documented as of this encounter
--- OUTSIDE RECORDS SUMMARY | 2024-05-02 14:02 | XMS_ITS | Encounter Summary ---
Author Organization [facility] Address [facility] [place] [address] Care Team Providers Care Managed Care Liaison Name Role Phone Alexys Morales MD Primary Care Provider [phone] Encounter Details Date Type Department Care Team (Latest Contact Info) Description 12/20/2011 1:10 PM EDT - 12/20/2011 11:59 PM EDT Hospital En[place] [phone] COPD (chronic obstructive pulmonary disease) (Primary Dx) [...] Sig Dispensed Refills Start Date End Date LORazepam (ATIVAN) 1 mg tablet Take 1.5 tablets by mouth 2 times daily as needed for Anxiety. May fill At [facility] [place] 45 tablet 0 11/16/2011 12/27/2011 gabapentin (NEURONTIN) 300 mg capsule Take by mouth. 1 tablet in am and 2 tablets at HS 90 capsule 6 10/04/2011 04/29/2012 levothyroxine (SYNTHROID) 25 mcg tablet Take 1 tablet by mouth daily. 30 tablet 12 09/04/2011 02/13/2012 albuterol (PROVENTIL HFA;VENTOLIN HFA) 90 mcg/Actuation inhaler Inhale 1 puff into the lungs 4 times daily as needed for Wheezing. Use with spacer. Please call clinic for an appointment. 1 Inhaler 3 08/29/2011 01/22/2012 tiotropium (SPIRIVA WITH HANDIHALER) 18 mcg inhalation capsule Inhale 1 capsule into the lungs daily. Please call clinic for an appointment. 90 capsule 0 08/29/2011 01/10/2012 fluticasone-salmetero l (ADVAIR DISKUS) 250-50 mcg/dose diskus [...] as needed. 2 each 1 05/02/2011 10/30/2012 fluocinonide (LIDEX) 0.05 % cream Apply topically 2 times daily as needed. 05/06/2012 triamterene-hydrochlo rothiazide (MAXZIDE-25) 37.5-25 mg per tablet Take 0.5 tablets by mouth daily. 45 tablet 1 01/24/2011 01/29/2012 documented as of this encounter Procedure Notes * Amy Desir MD - 01/03/2012 9:34 AM EDTAssociated Order(s): SCAN DOC: PFT; PULSE OXIMETRY, RESTING; PFT SCREEN (PULMONARY FUNCTION TEST) Spirometry suggests moderately severe airflow obstruction. Diffusion capacity is mildly reduced. The oxygen saturation on room air at rest is normal. Patient desaturated from 97% on RA at rest to 93% on RA after walking 800 feet. AMY DESIR MD documented in this encounter Plan of Treatment Upcoming Encounters Date Type Department Care Team (Late st Contact Info) Description 05/29/2024 2:00 PM EDT Office Visit Cardiology at [address] [place] [address] Estiven Raza MD [facility] [place] [address] Scheduled Orders Name Type Priority Associated Diagnoses Orde r Schedule Pulse Oximetry, Resting Procedures Routine [address] arting 12/20/2011 PFT Screen (Pulmonary Function Test) Procedures Routine [address] [place]ting 12/20/2011 documented as of this encounter Procedures Procedure Name Priority Date/Time Associated Diagnosis Comments PFT SCAN Routine 07/07/2012 5:01 AM EST documented in this encounter Results * PFT Screen (Pulmonary Function Test) (07/07/2012 5:01 AM EST) Jaswinder Casas MD PROCEDURE/MINOR SURG ICAL ORDERABLES * Pulse Oximetry, Resting (07/07/2012 5:01 AM EST) Jaswinder Casas MD PROCEDURE/MINOR SURG ICAL ORDERABLES * Scan Doc: PFT (07/07/2012 5:01 AM EST) Narrative Amy Desir MD - 07/07/2012 5:01 AM EST Amy Desir MD ? 07/07/2012 ??5:01 AM Spirometry suggests moderately severe airflow obstruction. Diffusion capacity is mildly reduced. The oxygen saturation on room air at rest is normal. Patient desaturated from 97% on RA at rest to 93% on RA after walking 800 feet. AMY DESIR MD Procedure Note Amy Desir MD - 01/03/2012 9:34 AM EDT Spirometry suggests moderately severe airflow obstruction. Diffusioncapacity is mildly reduced. The oxygen saturation on room air at rest is normal. Patient desaturated from 97% on RA at rest to 93% on RA after walking 800feet. AMY DESIR MD Jaswinder Casas MD MED[facility] MGR SCAN EXT O RDR/RSLT documented in this encounter Visit Diagnoses Diagnosis COPD (chronic obstructive pulmonary disease)- Primary Chronic airway obstruction, not elsewhere classified documented in this encounter Care Teams Managed Care Liaison Relationship Specialty Start Date End Date Alexys Morales MD [place] [address] PCP - General 06/28/10 02/12/12 documented as of this encounter
--- OUTSIDE RECORDS SUMMARY | 2024-05-02 14:02 | XMS_ITS | Encounter Summary ---
Author Organization [facility] Address [facility] [place] [address] Care Team Providers Care Almond Grinder Name Role Phone Alexys Morales MD Primary Care Provider [phone] Reason for Visit * Reason Onset Date Comments Other 09/01/2011 needs to start t hyroid Encounter Details Date Type Department Care Team (Late st Contact Info) Description 09/01/2011 Tele[place] [phone] Radha Diaz RN Other (needs to start thyroid) Social History Tobacco Use Types Packs/Day Years [...] encounter Miscellaneous Notes * Telephone Encounter - Radha Diaz RN - 09/01/2011 1:59 PM EST Pt received letter from Dr Alcira Wilson regarding starting thyroid. She was asked to call us if she was in agreement with starting this med. She would like script sent to [facility] in [place], [place]. documented in this encounter Plan of Treatment Upcoming Encounters Date Type Department Care Team (Late st Contact Info) Description 05/29/2024 2:00 PM EDT Office Visit Cardiology at [address] [address] Estiven Raza MD [facility] [place] [address] documented as of this encounter Visit Diagnoses Not on filedocumented in this encounter Care Teams Almond Grinder Relationship Specialty Start Date End Date Alexys Morales MD [facility] [place] [address] PCP - General 06/28/10 02/12/12 documented as of this encounter
--- OUTSIDE RECORDS SUMMARY | 2024-05-02 14:02 | XMS_ITS | Encounter Summary ---
Author Organization [facility] Address [address] [place] [address] Care Team Providers Care Clinical Application Consultant Name Role Phone Kiko Solis MD Primary Care Provider [phone] Encounter Details Date Type Department Care Team (Late st Contact Info) Description 02/08/2023 Lab Requisition [facility] Pathology & Laboratory Medicine - [address] [id number] Outr Resulting Lab, Provider Social History Tobacco [...] Procedure Name Priority Date/Time Associated Diagnosis Comments LYME AB Routine 02/07/2023 14:10 EDT documented in this encounter Results * LYME AB (02/07/2023 14:10 EDT) Lyme Ab Negative Negative 02/09/2023 11:16 EDT [facility] Blood VENOUS BLOOD / Unknown 02/07/2023 14:10 EDT 02/08/2023 17:57 EDT Provider Outr Resulting Lab IMMUNOLOGY A ND SEROLOGY ORDERABLES [facility] [address] [place] [address] documented in this encounter Visit Diagnoses Not on filedocumented in this encounter Care Teams Clinical Application Consultant Relationship Specialty Start Date End Date Kiko Solis MD [facility] REBECCA [address] [place] [address] PCP - General 06/17/15 documented as of this encounter
--- OUTSIDE RECORDS SUMMARY | 2024-05-02 14:02 | XMS_ITS | Encounter Summary ---
Author Organization [facility] Address [address] [place] [address] Care Team Providers Care Poured Pipe Maker Name Role Phone Unavailable Primary Care Provider Unavailabl e Encounter Details Date Type Department Care Team (Late st Contact Info) Description 09/17/2014 Results Only [facility] [phone] Hector Smith MD [address] [place] [address] Social History Tobacco Use Types Packs/Day Years Used Date Smoking Tobacco: Never Assessed Sex and Gender Information Value Date Recorded Sex Assigned at Not on file Gender Identity Not on file Sexual Orientation Not on file documented as of this encounter Plan of Treatment Not on file documented as of this encounter Procedures Procedure Name Priority Date/Time Associated Diagnosis Comments PAP TEST- RESULT ONLY Routine 09/17/2014 0:00 EST documented in this encounter Results * PAP TEST- RESULT ONLY (09/17/2014 0:00 EST) Pathology Report: CYTOPATHOLOGY REPORT Reports generated via electronic interface contain original data; however they are lacking the format of the original report. Caution should be taken when reading/interpreti ng unformatted reports. Name: ? THANH GONZALEZ ? Accession #: ? [id number] ? : ? 1950 (Age: 63) ??F ?Collect Date: ? 09/17/2014 ? Location: ? [facility] ? Receive Date: ? 09/18/2014 ? Provider: HECTOR SMITH MD Copy to: FALCO LEACH MD ? Final Report SPECIMEN ADEQUACY ? Satisfactory for Evaluation - transformation zone component present GENERAL CATEGORIZATION ? Negative for Intraepithelial Lesion or Malignancy ?? Specimen/Source: ??Pap Test, Cervix/Endocervix, ThinPrep Imaging System with manual evaluation Document reviewed and electronically signed by: ? Constance Ramirez, CT(ASCP) ? Report ??Date: 09/27/2014 10:30 HPV with Pap Test ? Date Ordered: ? 09/27/2014 ? Status: ?? Signed Out ?Date Complete: ? 09/30/2014 ? By: ??System Interface ? Date Reported: ? 09/30/2014 ? Interpretation RESULT: Negative for HPV. No E6 or E7 mRNA is detected from HPV types 16,18,31,33,35, 39,45,51,52,56,58, 59,66, and 68 by phosphorus processing supervisor mediated amplification. Comments Document reviewed and electronically signed by: ? System Interface ? Report date: 09/30/2014 By the signature above, the attending physician certifies that he/she has personally conducted a gross and/or microscopic examination of the described specimens and rendered or confirmed the above diagnosis. End of Report [facility] 09/17/2014 09/18/2014 Hector Smith MD PATHOLOGY ORDERABLES [facility] [address] [place] [address] documented in this encounter Visit Diagnoses Not on filedocumented in this encounter
--- OUTSIDE RECORDS SUMMARY | 2024-05-02 14:02 | XMS_ITS | Encounter Summary ---
Author Organization [facility] [place] [address] Care Team Providers Care Fuel Cell Systems Engineer Name Role Phone Alexys Morales MD Primary Care Provider [phone] Reason for Visit * Reason Onset Date Comments Medication Refill 01/24/2011 Encounter Details Date Type Department Care Team (Late st Contact Info) Description 01/24/2011 Refill Family [facility] [place] [address] Alexys Morales MD [facility] [place] [address] Social History Tobacco Use Types Packs/Day Years [...] PM EDT Office Visit Cardiology at [address] [address] Estiven Raza MD [facility] [place] [address] documented as of this encounter Visit Diagnoses Not on filedocumented in this encounter Care Teams Fuel Cell Systems Engineer Relationship Specialty Start Date End Date Alexys Morales MD [facility] [address] PCP - General 06/28/10 02/12/12 documented as of this encounter
--- OUTSIDE RECORDS SUMMARY | 2024-05-02 14:02 | XMS_ITS | Encounter Summary ---
Author Organization [facility] Address [facility] [place] [address] Care Team Providers Care Supervisor Doping Name Role Phone Alexys Morales MD Primary Care Provider [phone] Reason for Visit * Reason Onset Date Comments Cough 05/30/2011 Encounter Details Date Type Department Care Team (Late st Contact Info) Description 05/30/[address] [facility] [place] [address] Alexys Morales MD [place] [address] Cough Social History Tobacco Use Types Packs/Day Years [...] Miscellaneous Notes * Telephone Encounter - Elba Harmon RN - 05/30/2011 9:20 AM EDT Thanh calls to report that she has a nonproductive rattly cough. States that she believes she has a chest cold and that this is the second time in three weeks she has had it . States that the cough is worst in the morning and that she feels tight at that time. Denies fever - denies nasal congestion - denies shortness of breath. Using Robitussin to help cough. Is concerned about pneumonia. Offered office appointment today - but states that she cannot come in because her son has her car. Offered office appt Sunday but she would like to see Dr. Morales and informs medical office secretary that she would rather see a stranger in the ED than a stranger in the Clinic. documented in this encounter Plan of Treatment Upcoming Encounters Date Type Department Care Team (Late st Contact Info) Description 05/29/2024 2:00 PM EDT Office Visit Cardiology at [address] [address] Estiven Raza MD [facility] [place] [address] documented as of this encounter Visit Diagnoses Not on filedocumented in this encounter Care Teams Supervisor Doping Relationship Specialty Start Date End Date Alexys Morales MD [facility] [address] PCP - General 06/28/10 02/12/12 documented as of this encounter
--- OUTSIDE RECORDS SUMMARY | 2024-05-02 14:02 | XMS_ITS | Encounter Summary ---
Author Organization [facility] [place] [address] Care Team Providers Care Cornice Upholsterer Name Role Phone Alexys Morales MD Primary Care Provider [phone] Reason for Visit * Reason Comments COPD Encounter Details Date Type Department Care Team (Late st Contact Info) Description 02/15/2011 11:40 AM EDT Office Visit Family Medicine at [facility] [place] [address] René Freeman MD COPD (chronic obstructive pulmonary disease); Hypertension Discharge Disposition: Home Social History Tobacco Use [...] Sign Reading Time Taken Comments Blood Pressure 138/61 02/15/2011 11:26 AM EDT Pulse 74 02/15/2011 11:26 AM EDT Temperature 36.4 ??C (97.5 ??F) 02/15/2011 11:26 AM E DT Respiratory Rate 18 02/15/2011 11:26 AM EDT Oxygen Saturation 97% 02/15/2011 11:26 AM EDT Inhaled Oxygen Concentration - - Weight 73.9 kg (163 lb) 02/15/2011 11:26 AM EDT Height 153.7 cm (5' 0.5) 02/15/2011 11:26 AM ED T Body Mass Index 31.31 02/15/2011 11:26 AM EDT documented in this encounter Progress Notes * René Freeman MD - 02/15/2011 11:55 AM EDT Thanh Gonzalez is a 60 y.o. female who presents with one day of feeling like her face was swollen. Today the swelling has improved. No fever, chills, cough or change in sputum. No sore throat or sinuspressure. No known insect bites or new contactants on the face. She has COPD and has been feeling abit more SOB the last few days. She uses Advair once a day and albuterol usually twice a day. She does not feel SOB sitting here today. No CP, ankle swelling or dizziness. Non smoker, former smoker for many years, quit 6 yr ago. PE: No acute distress. Breathing easily HEENT: TM's are normal. Throat is clear. Neck is supple without lymphadenopathy. Neck: No carotid bruits are heard bilaterally CV: RRR, normal S1S2, no murmurs or gallops Lungs: Clear to auscultation in all lung fraire. No rales or wheeze. Extremities: No edema. A: 1. COPD. No overt signs of infection or CHF. Order CBC and CXR. Continue Advair. I sugegsted that she go to twice a day on Advair, she will consider it. 2. HTN. Good control on current meds. 3. H/o SVT. Good control on current meds. documented in this encounter Plan of Treatment Upcoming Encounters Date Type Department Care Team (Late st Contact Info) Description 05/29/2024 2:00 PM EDT Office Visit Cardiology at [address] [address] Estiven Raza MD [facility] [place] [address] documented as of this encounter Procedures Procedure Name Priority Date/Time Associated Diagnosis Comments CBC (WITH DIFF) Routine 02/15/2011 2:52 PM EDT COPD (chronic obstructive pulmonary disease) documented in this encounter Results * CBC (with Diff) (02/15/2011 2:52 PM EDT) White Blood Cell 7.1 4.0 - 10.0 x10(3)/mcL CERNER MILLENNIUM Red Blood Cell 4.69 3.93 - 5.22 x10(6)/mcL CERNER MILLENNIUM Hemoglobin 14.1 11.2 - 15.7 gm/dL CERNER MILLENNIUM Hematocrit 41.0 34.0 - 45.0 % CERNER MILLENNIUM Mean Cell Volume 87.4 79.0 - 94.0 fL CERNER MILLENNIUM Mean Cell Hemoglobin 30.1 26.6 - 32.2 pg CERNER MILLENNIUM Mean Cell Hemoglobin Concentration 34.4 32.0 - 36.5 gm/dL CERNER MILLENNIUM Platelet 267 145 - 370 x10(3)/mcL CERNER MILLENNIUM RDW Standard Deviation 40.8 35.0 - 46.0 fL CERNER MILLENNIUM RDW coefficient of variation 12.7 10.9 - 14.4 % CERNER MILLENNIUM Mean Platelet Volume 11.5 9.0 - 12.0 fL CERNER MILLENNIUM Blood specimen (specimen) 02/15/2011 2:52 PM EDT 02/15/2011 4:18 PM EDT René Freeman MD HEMATOLOGY ORDERABLE S CERNICK MORALEZIUM * XR chest routine PA & lateral (02/15/2011 12:33 PM EDT) Anatomical Region Laterality Modality Chest N/A Radiographic Kavita ging 02/15/2011 12:3 3 PM EDT Impressions 02/17/2011 8:34 AM EDT IMPRESSION: 1. ??No active cardiopulmonary disease. ?? Film and interpretation reviewed by the attending Narrative 02/17/2011 8:34 AM EDT CHEST X-RAY, PA AND LATERAL: REASON FOR STUDY: ??Shortness of breath. COPD. Rule out infiltrate. PREVIOUS STUDY: ??None. TECHNIQUE: ??Chest x-ray, PA and lateral. ?? FINDINGS: ??Cardiomediastinal silhouette is within normal limits. No effusions. No masses. No focal airspace consolidations. Opacity projecting adjacent to left heart border is likely a fat pad. ?? Procedure Note Mariela Gilbert MD - 02/17/2011 CHEST X-RAY, PA AND LATERAL: REASON FOR STUDY: Shortness of breath. COPD. Rule out infiltrate. PREVIOUS STUDY: None. TECHNIQUE: Chest x-ray, PA and lateral. FINDINGS: Cardiomediastinal silhouette is within normal limits. Noeffusions. No masses. No focal airspace consolidations. Opacity projecting adjacentto left heart border is likely a fat pad. IMPRESSION IMPRESSION: 1. No active cardiopulmonary disease. Film and interpretation reviewed by the attending René Freeman MD IMG DX ORDERABLES documented in this encounter Visit Diagnoses Diagnosis COPD (chronic obstructive pulmonary disease) Chronic airway obstruction, not elsewhere classified Hypertension Unspecified essential hypertension COPD (chronic obstructive pulmonary disease) Chronic airway obstruction, not elsewhere classified documented in this encounter Care Teams Cornice Upholsterer Relationship Specialty Start Date End Date Alexys Morales MD [facility] [address] PCP - General 06/28/10 02/12/12 documented as of this encounter
--- OUTSIDE RECORDS SUMMARY | 2024-05-02 14:02 | XMS_ITS | Encounter Summary ---
Author Organization [facility] Address [facility] [place] [address] Care Team Providers Care Fireproof Door Maker Name Role Phone Alexys Morales MD Primary Care Provider [phone] Reason for Visit * Reason Onset Date Comments COPD 12/20/2011 Encounter Details Date Type Department Care Team (Late st Contact Info) Description 12/20/2011 [place] [phone] Jaswinder Casas MD [facility] [place] [address] COPD Social History Tobacco Use Types Packs/Day Years [...] Miscellaneous Notes * Telephone Encounter - Renetta Silva - 12/20/2011 2:01 PM EDT Please Sign pended PFT orders documented in this encounter Plan of Treatment Upcoming Encounters Date Type Department Care Team (Late st Contact Info) Description 05/29/2024 2:00 PM EDT Office Visit Cardiology at [address] [phone] Estiven Raza MD [facility] [place] [address] Scheduled Orders Name Type Priority Associated Diagnoses Orde r Schedule PFT Screen (Pulmonary Function Test) Procedures Routine COPD (chronic obstructive pulmonary disease) Expected: 12/20/2011 (Approximate), Expires: 12/19/2012 Pulse Oximetry, Resting Procedures Routine COPD (chronic obstructive pulmonary disease) Expected: 12/20/2011 (Approximate), Expires: 12/19/2012 documented as of this encounter Results * Pulse Oximetry, Resting (07/07/2012 5:01 AM EST) Jaswinder Casas MD PROCEDURE/MINOR SURG ICAL ORDERABLES * PFT Screen (Pulmonary Function Test) (07/07/2012 5:01 AM EST) Jaswinder Casas MD PROCEDURE/MINOR SURG ICAL ORDERABLES documented in this encounter Visit Diagnoses Diagnosis COPD (chronic obstructive pulmonary disease)- Primary Chronic airway obstruction, not elsewhere classified documented in this encounter Care Teams Fireproof Door Maker Relationship Specialty Start Date End Date Alexys Morales MD [facility] [place] [address] PCP - General 06/28/10 02/12/12 documented as of this encounter
--- OUTSIDE RECORDS SUMMARY | 2024-05-02 14:02 | XMS_ITS | Encounter Summary ---
Author Organization [facility] Address [facility] [place] [address] Care Team Providers Care Training Program Manager Name Role Phone Alexys Morales MD Primary Care Provider [phone] Reason for Visit * Reason Comments Hypertension fu COPD fu Anxiety fu Encounter Details Date Type Department Care Team (Late st Contact Info) Description 05/02/2011 11:00 AM EDT Follow-Up Family Medicine at [facility] [address] [place] [address] Alexys Morales MD [facility] [place] [address] Anxiety; COPD (chronic obstructive pulmonary disease); Depression; Fatigue; Hypertension; Insomnia; Preventative health care Discharge Disposition: Home Social History Tobacco Use [...] Sign Reading Time Taken Comments Blood Pressure 130/70 05/02/2011 11:23 AM EDT Pulse 68 05/02/2011 11:23 AM EDT Temperature - - Respiratory Rate 18 05/02/2011 11:23 AM EDT Oxygen Saturation - - Inhaled Oxygen Concentration - - Weight 74.4 kg (164 lb) 05/02/2011 11:23 AM EDT Height 165.1 cm (5' 5) 05/02/2011 11:23 AM EDT Body Mass Index 27.29 05/02/2011 11:23 AM EDT documented in this encounter Progress Notes * Alexys Morales MD - 05/02/2011 12:09 PM EDT HISTORY OF PRESENT ILLNESS: 1) HTN -- reduced to 1/2 tab per day of triamt/HCTZ, and doing fine 2) Depression -- the gabapentin helps (and also helps with her restless leg syndrome); walk every day for 30 min. 3) Anxiety -- recently her BF moved in with her, and he has heart issues; and her son just moved inwith her, who has schizophrenia. GAD7 = 10 today. 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 She takes the Advair 250/50 every AM, and some PMs on bad days. 5) mild glucose intolerance -- (104 earlier this year) eating more fruit and veggies ! 6) allergic reactions -- she's getting increasingly bad reactions to bug bites -- was referred to Allergy. 7) fatigue in December; resolved -- she had elevated WBC -- after medication, she felt better, and the WBC returned to NL 8) prevention -- she is ready to have flu shot today; had Pap smear this summer in [facility] ROS: CVS - no chest pain Pulm - no SOB GI - no N/V/D M/S: no new joint pain Skin: no new rash Patient Active Problem [...] Systemic lupus erythematosus 710.0 ??? Fatigue 780.79B History reviewed. No pertinent past medical history. Past Surgical History Procedure Date ??? 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 Diabetes Father ??? Chronic Obstructive Pulmonary Disease Mother Allergies Allergen Reactions ??? Bee Pollen Hives Current outpatient prescriptions ordered prior to encounter Medication Sig Dispense Refill ??? hydroxychloroquine (PLAQUENIL) 200 mg tablet Take 2 tablets by mouth daily. 60 tablet 2 ??? albuterol (PROVENTIL HFA;VENTOLIN HFA) 90 mcg/Actuation inhaler Inhale 1 puff into the lungs 4 times daily as needed for Wheezing. Use with spacer 1 Inhaler 3 ??? LORazepam (ATIVAN) 1 mg tablet Take 1 tablet by mouth 2 times daily as needed for Anxiety. May fill At [facility] [phone] FAX 30 tablet 0 ??? fluticasone-salmeterol (ADVAIR DISKUS) 250-50 mcg/dose diskus inhaler Inhale 1 puff into the lungs daily as needed. 1 Inhaler 3 ??? gabapentin (NEURONTIN) 300 mg capsule Take by mouth. 1 tablet in am and 2 tablets at HS 90 capsule 6 ??? epiNEPHrine (EPIPEN) 0.3 mg/0.3 mL injection Inject 0.3 mLs into the muscle daily as needed. 2 each 1 ??? triamterene-hydrochlorothiazide (MAXZIDE-25) 37.5-25 mg per tablet Take 0.5 tablets by mouth daily. 45 tablet 1 ??? TH-KA-ED-Xt-Urm-Zbwnbhl-Lutein (CENTRUM) 0.4-162-18 mg Tab ??? tiotropium (SPIRIVA WITH HANDIHALER) 18 mcg inhalation capsule 1 Capsule(s) Inh Once daily ??? ergocalciferol (ERGOCALCIFEROL) 50,000 unit capsule [id number] UNIT = 1 Capsule(s), PO, Once weekly x 6; then once monthly ??? DISCONTD: CALCIUM CARBONATE ORAL ??? fluocinonide (LIDEX) 0.05 % cream Apply topically 2 times daily as needed. BP 130/70 Pulse 68 Resp 18 Ht 165.1 cm (5' 5) Wt 74.39 kg (164 lb) BMI 27.29 kg/m2 PHYSICAL EXAMINATION: WN,WD in NAD, A&O HEENT: eyes - PERRL Neck: supple, NT Lungs: clr to A Cor: RRR, no murmur Abd: soft, NT, no masses, NABS Ext: no C/C/E Skin: no rashes ASSESSMENT/PLAN: 1) HTN -- reduced to 1/2 tab per day of triamt/HCTZ, and doing fine - CPM, check BMP 2) Depression -- the gabapentin helps (and also helps with her restless leg syndrome); walk every day for 30 min.- CPM 3) Anxiety -- recently her BF moved in with her, and he has heart issues; and her son just moved inwith her, who has schizophrenia. GAD7 = 10 today. 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 She takes the Advair 250/50 every AM, and some PMs on bad days. 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 -- CPM 6) allergic reactions -- she's getting increasingly bad reactions to bug bites -- was referred to Allergy. 7) fatigue in December -- she had elevated WBC -- after medication, she felt better, and the WBC returned to NL. 8) prevention -- she is ready to have flu shot today RTC: 3 months Over 40 minutes were taken today, the majority of the time spent discussing the nature and treatment of the above diagnoses documented in this encounter Plan of Treatment Upcoming Encounters Date Type Department Care Team (Late st Contact Info) Description 05/29/2024 2:00 PM EDT Office Visit Cardiology at [address] [phone] Estiven Raza MD [facility] [place] [address] documented as of this encounter Visit Diagnoses Diagnosis Anxiety Anxiety state, unspecified COPD (chronic obstructive pulmonary disease) Chronic airway obstruction, not elsewhere classified Depression Depressive disorder, not elsewhere classified Fatigue Other malaise and fatigue Hypertension Unspecified essential hypertension Insomnia Insomnia, unspecified Preventative health care Routine general medical examination at a health care facility documented in this encounter Care Teams Training Program Manager Relationship Specialty Start Date End Date Alexys Morales MD [facility] [place] [address] PCP - General 06/28/10 02/12/12 documented as of this encounter
--- OUTSIDE RECORDS SUMMARY | 2024-05-02 14:02 | XMS_ITS | Encounter Summary ---
Author Organization [facility] [place] [address] Care Team Providers Care Overseamer Name Role Phone Alexys Morales MD Primary Care Provider [phone] Reason for Visit * Reason Onset Date Comments Medication Refill 02/21/2011 lorazepam Encounter Details Date Type Department Care Team (Late st Contact Info) Description 02/21/2011 Refill Family [place] [address] Alexys Morales MD [facility] [place] [address] Social History Tobacco Use Types Packs/Day Years [...] PM EDT Office Visit Cardiology at [address] [address] Estiven Raza MD [facility] [place] [address] documented as of this encounter Visit Diagnoses Not on filedocumented in this encounter Care Teams Overseamer Relationship Specialty Start Date End Date Alexys Morales MD [facility] [place] [address] PCP - General 06/28/10 02/12/12 documented as of this encounter
--- OUTSIDE RECORDS SUMMARY | 2024-05-02 14:02 | XMS_ITS | Encounter Summary ---
Author Organization [facility] [place] [address] Care Team Providers Care Laminating Machine Operator Name Role Phone Alexys Morales MD Primary Care Provider [phone] Reason for Visit * Reason Onset Date Comments Medication Refill 09/05/2011 Encounter Details Date Type Department Care Team (Late st Contact Info) Description 09/05/[address] [facility] [place] [address] Alexys Morales MD [facility] [place] [address] Social History Tobacco Use Types Packs/Day Years [...] * Telephone Encounter - Corby Baker - 09/05/2011 9:58 AM EST Patient is out of script, would like today if possible. Thanks Corby Jalloh documented in this encounter Plan of Treatment Upcoming Encounters Date Type Department Care Team (Late st Contact Info) Description 05/29/2024 2:00 PM EDT Office Visit Cardiology at [address] [address] Estiven Raza MD [facility] [place] [address] documented as of this encounter Visit Diagnoses Not on filedocumented in this encounter Care Teams Laminating Machine Operator Relationship Specialty Start Date End Date Alexys Morales MD [facility] [place] [address] PCP - General 06/28/10 02/12/12 documented as of this encounter
--- OUTSIDE RECORDS SUMMARY | 2024-05-02 14:02 | XMS_ITS | Encounter Summary ---
Author Organization [facility] Address [facility] [place] [address] Care Team Providers Care Belt Brander Name Role Phone Alexys Morales MD Primary Care Provider [phone] Reason for Visit * Reason Comments Fatigue x 2weeks Encounter Details Date Type Department Care Team (Late st Contact Info) Description 12/15/2010 4:20 PM EDT Office Visit Family Medicine at [facility] [place] [address] Alexys Morales MD [facility] [address] COPD (chronic obstructive pulmonary disease); Hypertension; Depression; Anxiety; Fatigue Discharge Disposition: Home Social History Tobacco Use [...] Sign Reading Time Taken Comments Blood Pressure 132/68 12/15/2010 5:01 PM EDT later in visit Pulse 76 12/15/2010 4:19 PM EDT Temperature 36.7 ??C (98.1 ??F) 12/15/2010 4 :19 PM EDT Respiratory Rate 20 12/15/2010 4:19 PM EDT Oxygen Saturation - - Inhaled Oxygen Concentration - - Weight 74.8 kg (165 lb) 12/15/2010 4:19 PM EDT Height - - Body Mass Index - - documented in this encounter Progress Notes * Alexys Morales MD - 12/15/2010 4:39 PM EDT Subjective: Patient ID: Thanh Gonzalez is a 60 y.o. female. HPI Their buffalo had to be put down when he got out. They still have a young Beefalo left (the orphan of the buffalo and a cow). 1) HTN -- reduce to 1/2 tab per day of triamt/HCTZ -- if BP > 135, call us. 2) Depression -- the gabapentin helps a bit; walk every day for 30 min. -- 3) moderately severe COPD -- OK lately with the inhalers and Plaquenil -- in general -- but 1.5 weeks ago she got sick -- increased cough and productive, so she called up and was given Z-pack and prednisone in the ER at [facility]. Now the breathing is back to NL. She finished the prednisone 2 days ago. 4) mild glucose intolerance -- eating more fruit and veggies ! 5) allergic reactions -- she's getting increasingly bad reactions to bug bites -- referred to Allergy. 6) Anxiety -- stable recently 7) fatigue -- for two weeks now -- began when her lungs got worse; all the cold Sx have resolved,except for some loose/semi-formed BMs (about 3 per day). Otherwise nothing is abnormal -- just tired. No urinary Sx. ROS: CVS - no chest pain Pulm - no SOB GI - no N/V/D M/S: no new joint pain Skin: no new rash History reviewed. No pertinent past medical history. Past Surgical History Procedure Date ??? Created by interface open reduction, internal fixation-right ankle Procedure Date: 2006 ??? Ankle fracture surgery 2006 History Social History ??? Marital Status: Spouse Name: N/A Number of Children: N/A ??? Years of Education: N/A Occupational History ??? Not on file. Social History Main Topics ??? Smoking status: Former Smoker -- 30 years Types: Cigarettes ??? Smokeless tobacco: Not on file ??? Alcohol Use: No ??? Drug Use: No ??? Sexually Active: Not on file Other Topics Concern ??? 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 No pertinent family history. Allergies Allergen Reactions ??? Bee Pollen Urticaria Current outpatient prescriptions ordered prior to encounter Medication Sig Dispense Refill ??? LORazepam (ATIVAN) 1 mg tablet Take 1 tablet by mouth 2 times daily as needed for Anxiety. May fill 12-21-10 at [facility] [place] 30 tablet 0 ??? CIS Free Text Med - Lidex 1 Appl(s), Top, Twice daily ??? SR-SG-BV-Nd-Hgr-Emeexbx-Lutein (CENTRUM) 0.4-162-18 mg Tab ??? fluticasone-salmeterol (ADVAIR DISKUS) 250-50 mcg/dose diskus inhaler 1 Disk(s) Inh Once daily PRN ??? tiotropium (SPIRIVA WITH HANDIHALER) 18 mcg inhalation capsule 1 Capsule(s) Inh Once daily ??? gabapentin (NEURONTIN) 300 mg capsule 1 tablet in am and 2 tablets at hs PO 1 tablet in am and 2 tablets at HS ??? hydroxychloroquine (PLAQUENIL) 200 mg tablet 400 MG = 2 Tablet(s) PO Once daily ??? triamterene-hydrochlorothiazide (MAXZIDE-25) 37.5-25 mg per tablet 1/2 Tablet(s) PO Once daily ??? CALCIUM CARBONATE ORAL ??? ergocalciferol (ERGOCALCIFEROL) 50,000 unit capsule 79314 UNIT = 1 Capsule(s), PO, Once weekly x 6; then once monthly ??? albuterol (PROVENTIL HFA;VENTOLIN HFA) 90 mcg/Actuation inhaler 1 Puff Inh PRN ??? epiNEPHrine (EPIPEN) 0.3 mg/0.3 mL injection 0.3 MG/0.3 ML, IM, Once daily, prn ??? azithromycin (ZITHROMAX Z-JODEE) 250 mg tablet 250 MG = 1 Tablet(s), PO, as directed ??? methylPREDNISolone (MEDROL, JODEE,) 4 mg tablet 4 mg, PO, as directed BP 132/68 Pulse 76 Temp(Src) 36.7 ??C (98.1 ??F) (Oral) Resp 20 Wt 74.844 kg (165 lb) PHYSICAL EXAMINATION: WN,WD in NAD, A&O HEENT: eyes - PERRLA, EOMI; ears - clr; nose - clr; throat - clr Neck: supple, NT Lungs: clr to A Cor: RRR, no murmur Abd: soft, NT, no masses, NABS Ext: no C/C/E Skin: no rashes ASSESSMENT/PLAN: 1) HTN -- reduced to 1/2 tab per day of triamt/HCTZ, and doing fine -- CPM 2) Depression -- the gabapentin helps a bit; walk every day for 30 min. 3) moderately severe COPD -- OK lately with the inhalers and Plaquenil -- in general -- but 1.5 weeks ago she got sick -- increased cough and productive, so she called up and was given Z-pack and prednisone in the ER at [facility]. Now the breathing is back to NL. She finished the prednisone 2 days ago. CPM usual meds. 4) mild glucose intolerance -- eating more fruit and veggies ! CPM 5) allergic reactions -- she's getting increasingly bad reactions to bug bites -- referred to Allergy. 6) Anxiety -- stable recently 7) fatigue -- for two weeks now -- began when her lungs got worse; all the cold Sx have resolved,except for some loose/semi-formed BMs (about 3 per day). Otherwise nothing is abnormal -- just tired. She was tired this way the last time her Sz came back -- but she has not had any that she or anyone else has recognized. We will check CBC, CMP Tests ordered: as above Old Records reviewed with patient: Old tests reviewed with patient: RTC: 1 week if no better Over 40 minutes were taken today, the majority of the time spent discussing the nature and treatment of the above diagnoses Review of Systems Objective: Physical Exam Assessment and Plan: documented in this encounter Plan of Treatment Upcoming Encounters Date Type Department Care Team (Late st Contact Info) Description 05/29/2024 2:00 PM EDT Office Visit Cardiology at [address] [phone] Estiven Raza MD [facility] [place] [address] documented as of this encounter Procedures Procedure Name Priority Date/Time Associated Diagnosis Comments DIFFERENTIAL, AUTOMATED Routine 12/15/2010 5:28 PM EDT CBC (WITH DIFF) Routine 12/15/2010 5:28 PM EDT Fatigue COMPREHENSIVE METABOLIC PANEL Routine 12/15/2010 5:28 PM EDT Fatigue documented in this encounter Results * (ABNORMAL) REFLEX LAB-A-DIFF (12/15/2010 5:28 PM EDT) Neutrophil % 55.0 34.0 - 71.0 % CERNER MILLENNIUM Neutrophil Absolute 6.59(H) 1.50 - 6.30 x10(3)/mc L CERNER MILLENNIUM Lymph % 35.1 19.0 - 53.0 % CERNER MILLENNIUM Lymphocytes Abs 4.2(H) 1.0 - 3.6 x10(3)/mc L CERNER MILLENNIUM Monocyte % 6.2 4.0 - 13.0 % CERNER MILLENNIUM Monocyte Abs 0.7 0.2 - 1.0 x10(3)/mc L CERNER MILLENNIUM Eos % 1.8 0.0 - 7.0 % CERNER MILLENNIUM Eosinophils Abs 0.2 0.0 - 0.5 x10(3)/mc L CERNER MILLENNIUM Basophil % 0.6 0.0 - 2.0 % CERNER MILLENNIUM Baso Absolute 0.1 0.0 - 0.2 x10(3)/mc L CERNER MILLENNIUM Immature Gran % 1.30(H) 0.00 - 0.66 % CERNER MILLENNIUM Comment: Immature granulocytes(IG's)percentage and absolute count will include metamyelocytes, myelocytes, and promyelocytes. Blood smears from CBCs yielding IG's will be scanned manually for concordance. If this scan disagrees with the automated IG or if promyelocytes are noted, a manual differential will be performed. Immature Gran Absolute 0.16(H) 0.00 - 0.05 x10(3)/mc L CERNER MILLENNIUM Blood specimen (specimen) 12/15/2010 5:28 PM EDT 12/15/2010 5:31 PM EDT Alexys Morales MD HEMATOLOGY ORDERABLE S CERNER MILLENNIUM * Comprehensive metabolic panel (12/15/2010 5:28 PM EDT) Glucose 104 60 - 199 mg/dL CERNER MILLENNIUM Comment:Diabetes: >=200 mg/d L plus symptoms Blood Urea Nitrogen 18 8 - 18 mg/dL CERNER MILLENNIUM Creatinine 0.82 0.70 - 1.20 mg/dL CERNER MILLENNIUM Sodium 141 135 - 145 mmol/L CERNER MILLENNIUM Potassium 3.6 3.5 - 5.0 mmol/L CERNER MILLENNIUM Comment: Please note: ??Patients with WBC >100,000 may have falsely elevated Potassium levels. ??For accurate Potassium quantification in these patients send serum separator tube (gold top) for subsequent determinations. ??Contact the Clinical Chemistry Laboratory if there are any questions. Chloride 104 98 - 107 mmol/L CERNER MILLENNIUM Carbon Dioxide 26 22 - 31 mmol/L CERNER MILLENNIUM Anion Gap 11 5 - 15 mmol/L CERNER MILLENNIUM Calcium 9.1 8.5 - 10.5 mg/dL CERNER MILLENNIUM Protein, Total 6.5 6.4 - 8.3 gm/dL CERNER MILLENNIUM Albumin 3.8 3.2 - 5.2 gm/dL CERNER MILLENNIUM Aspartate Aminotransferase 19 0 - 30 unit/L CERNER MILLENNIUM Alanine Aminotransferase 26 0 - 30 unit/L CERNER MILLENNIUM Alkaline Phosphatase 77 40 - 104 unit/L CERNER MILLENNIUM Bilirubin, Total 0.2 0.2 - 1.3 mg/dL CERNER MILLENNIUM Bilirubin, [...] past week). For patients multiply eGFR by 1.2.MDRD equation has not been validated for pediatric patients and is only valid for patients with age >= 18 years. At present, NKDEP does NOT recommend using [...] with diabetic kidney disease. References: http://nkdep.nih.gov/resources/NKDEP_Suggestn4Labs_0606_508.pdf http://www.kidney.org/professionals/kls/pdf/faq_gfr.pdf Blood specimen (specimen) 12/15/2010 5:28 PM EDT 12/15/2010 5:31 PM EDT Alexys Morales MD CHEMISTRY ORDERABLES SHIRA JIMENEZ * (ABNORMAL) CBC (with Diff) (12/15/2010 5:28 PM EDT) White Blood Cell 12.0(H) 4.0 - 10.0 x10(3)/mc L CERNER MILLENNIUM Red Blood Cell 4.82 3.93 - 5.22 x10(6)/mc L CERNER MILLENNIUM Hemoglobin 14.4 11.2 - 15.7 gm/dL CERNER MILLENNIUM Hematocrit 42.8 34.0 - 45.0 % CERNER MILLENNIUM Mean Cell Volume 88.8 79.0 - 94.0 fL CERNER MILLENNIUM Mean Cell Hemoglobin 29.9 26.6 - 32.2 pg CERNER MILLENNIUM Mean Cell Hemoglobin Concentration 33.6 32.0 - 36.5 gm/dL CERNER MILLENNIUM Platelet 319 145 - 370 x10(3)/mc L CERNER MILLENNIUM RDW Standard Deviation 40.8 35.0 - 46.0 fL CERNER MILLENNIUM RDW coefficient of variation 12.8 10.9 - 14.4 % CERNER MILLENNIUM Mean Platelet Volume 10.9 9.0 - 12.0 fL CERNER MILLENNIUM Blood specimen (specimen) 12/15/2010 5:28 PM EDT 12/15/2010 5:31 PM EDT Alexys Morales MD HEMATOLOGY ORDERABLE S SHIRA JIMENEZ documented in this encounter Visit Diagnoses Diagnosis COPD (chronic obstructive pulmonary disease) Chronic airway obstruction, not elsewhere classified Hypertension Unspecified essential hypertension Depression Depressive disorder, not elsewhere classified Anxiety Anxiety state, unspecified Fatigue Other malaise and fatigue documented in this encounter Care Teams Belt Brander Relationship Specialty Start Date End Date Alexys Morales MD [facility] [place] [address] PCP - General 06/28/10 02/12/12 documented as of this encounter
--- OUTSIDE RECORDS SUMMARY | 2024-05-02 14:02 | XMS_ITS | Encounter Summary ---
Author Organization [facility] [place] [address] Care Team Providers Care Animal Cytologist Name Role Phone Alexys Morales MD Primary Care Provider [phone] Reason for Visit * Reason Onset Date Comments Medication Refill 11/21/2010 Encounter Details Date Type Department Care Team (Late st Contact Info) Description 11/21/2010 Refill Family [facility] [place] [address] Alexys Morales MD [facility] [place] [address] Social History Tobacco Use Types Packs/Day Years Used Date Smoking Tobacco: Never Assessed Sex and Gender Information Value Date Recorded Sex Assigned at Not on file Gender Identity Not on file Sexual Orientation Not on file documented as of this encounter Miscellaneous Notes * Telephone Encounter - Corby Baker - 11/21/2010 8:31 AM EDT Patient is out of script, would like today if possible. Thanks Corby Jalloh documented in this encounter Plan of Treatment Upcoming Encounters Date Type Department Care Team (Late st Contact Info) Description 05/29/2024 2:00 PM EDT Office Visit Cardiology at [address] [phone] Estiven Raza MD [facility] [place] [address] documented as of this encounter Visit Diagnoses Not on filedocumented in this encounter Care Teams Animal Cytologist Relationship Specialty Start Date End Date Alexys Morales MD [facility] [place] [address] PCP - General 06/28/10 02/12/12 documented as of this encounter
--- OUTSIDE RECORDS SUMMARY | 2024-05-02 14:02 | XMS_ITS | Encounter Summary ---
Author Organization [facility] Address [facility] [place] [address] Care Team Providers Care Newspaper Managing Editor Name Role Phone Alexys Morales MD Primary Care Provider [phone] Reason for Visit * Reason Onset Date Comments Medication Problem 02/27/2011 Encounter Details Date Type Department Care Team (Late st Contact Info) Description 02/27/[address] [facility] [place] [address] Alexys Morales MD [facility] [place] [address] Social History Tobacco Use Types Packs/Day Years [...] encounter Miscellaneous Notes * Telephone Encounter - Glenda Shahid LPN - 02/27/2011 4:39 PM EDT Called [facility] again aware they do need to fill the Advair inhaler for patient as she is out and will need it today. * Telephone Encounter - Glenda Shahid LPN - 02/27/2011 1:32 PM EDT Called [facility] requested they fill rx sent 7-19 for the advair 250-50 * Telephone Encounter - Renetta Robles - 02/27/2011 8:23 AM EDT Says the advair did not get to the pharmacy. [facility] [place] Can we redo documented in this encounter Plan of Treatment Upcoming Encounters Date Type Department Care Team (Late st Contact Info) Description 05/29/2024 2:00 PM EDT Office Visit Cardiology at [address] [phone] Estiven Raza MD [facility] [place] [address] documented as of this encounter Visit Diagnoses Not on filedocumented in this encounter Care Teams Newspaper Managing Editor Relationship Specialty Start Date End Date Alexys Morales MD [facility] [address] PCP - General 06/28/10 02/12/12 documented as of this encounter
--- OUTSIDE RECORDS SUMMARY | 2024-05-02 14:02 | XMS_ITS | Encounter Summary ---
Author Organization [facility] Address [facility] [place] [address] Care Team Providers Care Gluing Machine Feeder Name Role Phone Alexys Morales MD Primary Care Provider [phone] Reason for Visit * Reason Onset Date Comments Medication Problem 11/22/2010 pharm didn't recv. script Encounter Details Date Type Department Care Team (Late st Contact Info) Description 11/22/2010 Telephone [facility] [place] [address] Alexys Morales MD [facility] [place] [address] Medication Problem (pharm didn't recv. script) Social History Tobacco Use Types Packs/Day Years Used Date Smoking Tobacco: Never Assessed Sex and Gender Information Value Date Recorded Sex Assigned at Not on file Gender Identity Not on file Sexual Orientation Not on file documented as of this encounter Miscellaneous Notes * Telephone Encounter - Corby Baker - 11/22/2010 2:23 PM EDT Please re-send script for lorazepam to [facility] in [place] Thanks Corby Jalloh documented in this encounter Plan of Treatment Upcoming Encounters Date Type Department Care Team (Late st Contact Info) Description 05/29/2024 2:00 PM EDT Office Visit Cardiology at [address] [phone] Estiven Raza MD [facility] [place] [address] documented as of this encounter Visit Diagnoses Not on filedocumented in this encounter Care Teams Gluing Machine Feeder Relationship Specialty Start Date End Date Alexys Morales MD [facility] [place] [address] PCP - General 06/28/10 02/12/12 documented as of this encounter
--- OUTSIDE RECORDS SUMMARY | 2024-05-02 14:02 | XMS_ITS | Encounter Summary ---
Author Organization [facility] Address [facility] [place] [address] Care Team Providers Care Bread Room Hand Name Role Phone Alexys Morales MD Primary Care Provider [phone] Encounter Details Date Type Department Care Team (Late st Contact Info) Description 10/24/2010 12:00 PM EDT Procedure visit [place] [phone] Social History Tobacco Use Types Packs/Day Years [...] 2:00 PM EDT Office Visit Cardiology at [address] [phone] Estiven Raza MD [facility] [place] [address] documented as of this encounter Visit Diagnoses Not on filedocumented in this encounter Care Teams Bread Room Hand Relationship Specialty Start Date End Date Alexys Morales MD [facility] [place] [address] PCP - General 06/28/10 02/12/12 documented as of this encounter
--- OUTSIDE RECORDS SUMMARY | 2024-05-02 14:02 | XMS_ITS | Encounter Summary ---
Author Organization [facility] Address [facility] [place] [address] Care Team Providers Care Cooky Packer Name Role Phone Unavailable Primary Care Provider Unavailabl e Encounter Details Date Type Department Care Team (Late st Contact Info) Description 06/09/2010 12:45 PM EDT [place] [address] Jaswinder Casas MD [facility] [place] [address] Social History Tobacco Use Types Packs/Day Years [...] Office Visit Cardiology at [address] [phone] Estiven Raza MD [facility] [place] [address] documented as of this encounter Visit Diagnoses Not on filedocumented in this encounter
--- OUTSIDE RECORDS SUMMARY | 2024-05-02 14:02 | XMS_ITS | Encounter Summary ---
Author Organization [facility] [place] [address] Care Team Providers Care Software Applications Developer Name Role Phone Alexys Morales MD Primary Care Provider [phone] Reason for Referral * Allergy Testing (Routine) - Closed Specialty Diagnoses / Procedures Referred By Rangel weldon Referred To Contact Allergy Diagnoses History of allergic reaction to arachnid bite Alexys Morales MD [facility] [place] [address] [facility] [address] [place] [address] Referral ID Status Reason Start Date Expiration Date V isits Requested Visits Authorized [id number] Closed Consult, Test & Treat 02/07/2011 08/06/2011 1 1 Reason for Visit * Reason Onset Date Comments Other 02/02/2011 referral to earnest dixon Encounter Details Date Type Department Care Team (Late st Contact Info) Description 02/02/2011 Telephone [place] Medicine at [facility] [place]Note 2[facility] [place] [address] Alexys Morales MD [facility] [place] [address] Other (referral to allergy) Social History Tobacco Use Types Packs/Day Years Used Date Smoking Tobacco: Former Cigarettes Alcohol Use Standard Drinks/Week Comments No 0 (1 standard drink = 0.6 oz pur e alcohol) Sex and Gender Information Value Date Recorded Sex Assigned at Not on file Gender Identity Not on file Sexual Orientation Not on file documented as of this encounter Miscellaneous Notes * Telephone Encounter - MehtaRajanXochitl M - 02/02/2011 9:11 AM EDT She would like to get another referral to allergy for allergic reactions to bugbites. She got one from you a year ago but never went to the appt. 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
--- OUTSIDE RECORDS SUMMARY | 2024-05-02 14:02 | XMS_ITS | Encounter Summary ---
Author Organization [facility] Address [facility] [place] [address] Care Team Providers Care Clinical Operations Specialist Name Role Phone Buddy Hicks MD Primary Care Provider Encounter Details Date Type Department Care Team (Late st Contact Info) Description 09/01/2009 Orders [place] [address] [facility] [place] [address] Social History Tobacco Use Types Packs/Day Years [...] 2:00 PM EDT Office Visit Cardiology at [address] [phone] [facility] [address] documented as of this encounter Procedures Procedure Name Priority Date/Time Associated Diagnosis Comments FILM LIBRARY STORAGE ONLY DX CHEST Routine 09/01/2009 3:21 PM EST documented in this encounter Results * Film Library- Storage only DX Chest (09/01/2009 3:21 PM EST) 09/01/2009 3:21 PM EST Narrative RAD - 02/17/2014 10:40 AM EDT This is a non-reportable exam. Procedure Note Noel Elizabeth - 02/17/2014 This is a non-reportable exam. Amy Dewey MD IMG FILM LIBRARY ORDERABLES RAD [address] [place] [address] documented in this encounter Visit Diagnoses Not on filedocumented in this encounter Care Teams Clinical Operations Specialist Relationship Specialty Start Date End Date Buddy Hicks MD [facility] [address] [facility] [place] [address] PCP - General 02/13/12 07/21/14 documented as of this encounter
--- OUTSIDE RECORDS SUMMARY | 2024-05-02 14:02 | XMS_ITS | Encounter Summary ---
Author Organization [facility] Address [facility] [place] [address] Care Team Providers Care Airplane Dispatch Clerk Name Role Phone Buddy Hicks MD Primary Care Provider [phone] Encounter Details Date Type Department Care Team (Late st Contact Info) Description 05/31/2009 Orders [place] [address] Amy Dewey MD [facility] [place] [address] Social History Tobacco Use Types Packs/Day Years [...] PM EDT Office Visit Cardiology at [address] [phone] Esitven Raza MD [facility] [place] [address] documented as of this encounter Procedures Procedure Name Priority Date/Time Associated Diagnosis Comments FILM LIBRARY STORAGE ONLY DX CHEST Routine 05/31/2009 3:26 PM EDT documented in this encounter Results * Film Library- Storage only DX Chest (05/31/2009 3:26 PM EDT) 05/31/2009 3:26 PM EDT Narrative RAD - 02/17/2014 10:40 AM EDT This is a non-reportable exam. Procedure Note Noel Elizabeth - 02/17/2014 This is a non-reportable exam. Amy Dewey MD IMG FILM LIBRARY ORDERABLES RAD [address] [place] [address] documented in this encounter Visit Diagnoses Not on filedocumented in this encounter Care Teams Airplane Dispatch Clerk Relationship Specialty Start Date End Date Buddy Hicks MD [facility] [address] [facility] [place] [address] PCP - General 02/13/12 07/21/14 documented as of this encounter
--- OUTSIDE RECORDS SUMMARY | 2024-05-02 14:02 | XMS_ITS | Encounter Summary ---
Author Organization [facility] Address [facility] [place] [address] Care Team Providers Care Manager Integrated Name Role Phone Alexys Morales MD Primary Care Provider [phone] Encounter Details Date Type Department Care Team (Late st Contact Info) Description 10/24/2010 12:45 PM EDT [place] [phone] Jaswinder Casas MD [facility] [place] [address] Discharge Disposition: Home Social History Tobacco Use [...] PM EDT Office Visit Cardiology at [address] [phone] Estiven Raza MD [facility] [place] [address] documented as of this encounter Visit Diagnoses Not on filedocumented in this encounter Care Teams Manager Integrated Relationship Specialty Start Date End Date Alexys Morales MD [facility] [place] [address] PCP - General 06/28/10 02/12/12 documented as of this encounter
--- OUTSIDE RECORDS SUMMARY | 2024-05-02 14:02 | XMS_ITS | Encounter Summary ---
Author Organization [facility] Address [facility] [place] [address] Care Team Providers Care Repairer Recreational Vehicle Name Role Phone Alexys Morales MD Primary Care Provider [phone] Encounter Details Date Type Department Care Team (Late st Contact Info) Description 06/07/2010 [place] [address] Alexys Morales MD [facility] [place] [address] Social History Tobacco Use Types Packs/Day Years [...] PM EDT Office Visit Cardiology at [address] [phone] Estiven Raza MD [facility] [place] [address] documented as of this encounter Procedures Procedure Name Priority Date/Time Associated Diagnosis Comments BASIC METABOLIC PANEL Routine 06/07/2010 11:04 AM EDT documented in this encounter Results * BASIC METABOLIC PANEL (NON-FASTING) (06/07/2010 11:04 AM EDT) Glucose 91 <=199 mg/dL CERNER MILLENNIUM Comment:Diabetes: >=200 mg/d L plus symptoms Blood Urea Nitrogen 18 8 - 18 mg/dL CERNER MILLENNIUM Creatinine 0.79 0.70 - 1.20 mg/dL CERNER MILLENNIUM Sodium 140 135 - 145 mmol/L CERNER MILLENNIUM Potassium 3.8 3.5 - 5.0 mmol/L CERNER MILLENNIUM Comment: Please note: ??Patients with WBC >100,000 may have falsely elevated Potassium levels. ??For accurate Potassium quantification in these patients send serum separator tube (gold top) for subsequent determinations. ??Contact the Clinical Chemistry Laboratory if there are any questions. Chloride 102 98 - 107 mmol/L CERNER MILLENNIUM Carbon Dioxide 28 22 - 31 mmol/L CERNER MILLENNIUM Anion Gap 10 5 - 15 mmol/L CERNER MILLENNIUM Calcium 9.4 8.5 - 10.5 mg/dL CERNER MILLENNIUM Est Glomerular Filtration Rate >60 >=60 CERNER MILLENNIUM Comment: The National Kidney Disease Education Program (NKDEP) has recommended all laboratories report estimated GFR (eGFR) along with plasma creatinine measurements to assist you with recognition of early kidney disease. Caveats: ??Plasma creatinine should be at steady-state (unchanged within the past week). ??Patient age > = 18 years, and for Americans multiply eGFR by 1.2. At present, NKDEP does NOT recommend using [...] disease. References: http://nkdep.nih.gov/resources/NKDEP_Suggestn4Labs_0606_508.pdf http://www.kidney.org/professionals/kls/pdf/faq_gfr.pdf Blood specimen (specimen) 06/07/2010 11:04 AM EDT 06/07/2010 12:20 PM EDT Alexys Morales MD CHEMISTRY ORDERABLES Performing Organization Address City/State/[facility] Phone Number [facility] documented in this encounter Visit Diagnoses Not on filedocumented in this encounter Care Teams Repairer Recreational Vehicle Relationship Specialty Start Date End Date Alexys Morales MD [facility] [place] [address] PCP - General 06/28/10 02/12/12 documented as of this encounter
--- OUTSIDE RECORDS SUMMARY | 2024-05-02 14:02 | XMS_ITS | Encounter Summary ---
Author Organization [facility] Address [facility] [place] [address] Care Team Providers Care Hand Riveter Name Role Phone Alexys Morales MD Primary Care Provider [phone] Reason for Visit * Reason Onset Date Comments Medication Reaction 05/18/2011 Encounter Details Date Type Department Care Team (Late st Contact Info) Description 05/18/[address] [facility] [place] [address] Alexys Morales MD [facility] [place] [address] Medication Reaction Social History Tobacco Use Types Packs/Day Years [...] Telephone Encounter - Elba Harmon RN - 05/18/2011 4:33 PM EDT Discussed with Dr. Morales - recommend that Thanh talk with Pulmonology -she states she has tried but will try again. He would like her to discontinue prednisone. Advised her to come in to be checked if chest tightness is still present. Thanh verbalizes understanding and agreement. * Telephone Encounter - Aileen Shrestha RN - 05/18/2011 11:14 AM EDT Pt taking Prednisone and Azithromycin for cold sxs. - prescribed by Dr Saldivar in Pulmonology. This is day three. Pt has COPD. Pt said her face/cheeks became red and very hot yesterday after taking the Prednisone; her chest felt tight and she felt very nervous. Pt did not take the Prednisone last night. Pt asking if she should continue the Prednisone. Pt still coughing, denies fever. Pt advised Dr Morales will be here in clinic at 1 pm this afternoon. Elba Harmon RN will inform Dr Morales of her symptoms and call pt with his advice . documented in this encounter Plan of Treatment Upcoming Encounters Date Type Department Care Team (Late st Contact Info) Description 05/29/2024 2:00 PM EDT Office Visit Cardiology at [address] [phone] Estiven Raza MD [facility] [place] [address] documented as of this encounter Visit Diagnoses Not on filedocumented in this encounter Care Teams Hand Riveter Relationship Specialty Start Date End Date Alexys Morales MD [facility] [place] [address] PCP - General 06/28/10 02/12/12 documented as of this encounter
--- OUTSIDE RECORDS SUMMARY | 2024-05-02 14:02 | XMS_ITS | Encounter Summary ---
Author Organization [facility] [place] [address] Care Team Providers Care Lodge Attendant Name Role Phone Alexys Morales MD Primary Care Provider [phone] Reason for Visit * Reason Comments Medication Refill Encounter Details Date Type Department Care Team (Late st Contact Info) Description 01/15/2011 Refill Family [facility] [place] [address] Alexys Morales MD [facility] [place] [place] [address] Social History Tobacco Use Types Packs/Day Years [...] Miscellaneous Notes * Telephone Encounter - Elena Casey - 01/30/2011 12:37 PM EDT Pt would like 2 epi pens,she wants one for home and one to keep with her. documented in this encounter Plan of Treatment Upcoming Encounters Date Type Department Care Team (Late st Contact Info) Description 05/29/2024 2:00 PM EDT Office Visit Cardiology at [address] [phone] Estiven Raza MD [facility] [place] [address] documented as of this encounter Visit Diagnoses Not on filedocumented in this encounter Care Teams Lodge Attendant Relationship Specialty Start Date End Date Alexys Morales MD [facility] [place] [address] PCP - General 06/28/10 02/12/12 documented as of this encounter
--- OUTSIDE RECORDS SUMMARY | 2024-05-02 14:02 | XMS_ITS | Encounter Summary ---
Author Organization [facility] [place] [address] Care Team Providers Care Store Custodian Name Role Phone Alexys Morales MD Primary Care Provider [phone] Reason for Visit * Reason Onset Date Comments Medication Refill 01/30/2011 Encounter Details Date Type Department Care Team (Late st Contact Info) Description 01/30/2011 Refill Family [place] [address] Alexys Morales MD [facility] [place] [address] Social History Tobacco Use Types Packs/Day Years [...] PM EDT Office Visit Cardiology at [address] [phone] Estiven Raza MD [facility] [place] [address] documented as of this encounter Visit Diagnoses Not on filedocumented in this encounter Care Teams Store Custodian Relationship Specialty Start Date End Date Alexys Morales MD [facility] [place] [address] PCP - General 06/28/10 02/12/12 documented as of this encounter
--- OUTSIDE RECORDS SUMMARY | 2024-05-02 14:02 | XMS_ITS | Encounter Summary ---
Author Organization [facility] [place] [address] Care Team Providers Care Analytical Technician Name Role Phone Alexys Morales MD Primary Care Provider [phone] Reason for Visit * Reason Onset Date Comments Medication Refill 04/21/2011 Encounter Details Date Type Department Care Team (Late st Contact Info) Description 04/21/2011 Refill Family [facility] [place] [address] Alexys Morales MD [facility] [place] [address] Social History Tobacco Use Types Packs/Day Years [...] PM EDT Office Visit Cardiology at [address] [phone] Estiven Raza MD [facility] [place] [address] documented as of this encounter Visit Diagnoses Not on filedocumented in this encounter Care Teams Analytical Technician Relationship Specialty Start Date End Date Alexys Morales MD [facility] [place] [address] PCP - General 06/28/10 02/12/12 documented as of this encounter
--- OUTSIDE RECORDS SUMMARY | 2024-05-02 14:02 | XMS_ITS | Encounter Summary ---
Author Organization [facility] Address [facility] [place] [address] Care Team Providers Care Rolling Machine Operator Name Role Phone Alexys Morales MD Primary Care Provider [phone] Reason for Visit * Reason Comments Allergic Reaction Encounter Details Date Type Department Care Team (Late st Contact Info) Description 03/07/2011 9:45 AM EDT [place] [phone] Dionte Salas MD [facility] [address] [place] [address] COPD (chronic obstructive pulmonary disease); Insect bite; Urticaria Discharge Disposition: Home Social History Tobacco Use [...] Sign Reading Time Taken Comments Blood Pressure 124/72 03/07/2011 9:38 AM EDT Pulse 71 03/07/2011 9:38 AM EDT Temperature - - Respiratory Rate - - Oxygen Saturation 96% 03/07/2011 9:38 AM EDT Inhaled Oxygen Concentration - - Weight 73.9 kg (163 lb) 03/07/2011 9:38 AM EDT Height 153.7 cm (5' 0.5) 03/07/2011 9:38 AM EDT Body Mass Index 31.31 03/07/2011 9:38 AM EDT documented in this encounter Progress Notes * Dionte Salas MD - 03/07/2011 9:43 AM EDT Subjective: Patient ID: Thanh Gonzalez is a 60 y.o. female. HPI 1. Urticaria - occurred after getting stung by blackflies on arm, mild to moderate, takes benadryl with good resolution, no dyspnea 2. Insect bite - most recently 2 years ago by a blackfly, when bit on face gets moderately severe swelling (this occurred 2 years ago), has not been stung by bees except as child when had local swelling. Has Epipen at home which she has used in the past once when she had facial swelling after getting stung there. 3. History of COPD - diagnosed 25 years ago, moderate severity, associated with hoarseness after taking Advair, Advair does help (250/50 1 puff BID) and spiriva. See Dr Saldivar regarding this. Not worse during pollen seasons or around animals. Referred by Dr Morales for evaluation and management of possible bee allergy. I reviewed his note from 12/15/10 which documents a history of moderately severe COPD recently treated with Zpac and prednisone and also increasingly bad reactions to bug bites; no further information on the specific reactions is included. Past medical history, medications and allergies: reviewed and updated in eDH Family history: mother had asthma Social history: quit smoking, has dogs and cats at home Review of Systems Constitutional: Negative. HENT: Negative. Eyes: Negative. Respiratory: Positive for cough and shortness of breath. Cardiovascular: Negative. Gastrointestinal: Negative. Genitourinary: Negative. Musculoskeletal: Negative. Skin: Negative. Neurological: Negative. Hematological: Negative. Psychiatric/Behavioral: Negative. Objective: Physical Exam Nursing note and vitals reviewed. Constitutional: Oriented to person, place, and time. Well-developed and well- nourished. No distress. HENT: Head: Normocephalic and atraumatic. Right Ear: External ear normal. Left Ear: External ear normal. Nose: Nose normal. Mouth/Throat: Oropharynx is clear and moist. No oropharyngeal exudate. Eyes: Conjunctivae and EOM are normal. Pupils are equal, round, and reactive to light. Right eye exhibits no discharge. Left eye exhibits no discharge. No scleral icterus. Neck: Normal range of motion. Neck supple. No JVD present. No tracheal deviation present. No thyromegaly present. Cardiovascular: Normal rate, regular rhythm, normal heart sounds and intact distal pulses. Exam reveals no gallop and no friction rub. No murmur heard. Pulmonary/Chest: Effort normal and breath sounds normal. No stridor. No respiratory distress. No wheezes. No rales. No tenderness. Abdominal: Soft. Bowel sounds are normal. No distension and no mass. No tenderness. No rebound and no guarding. Musculoskeletal: Normal range of motion. No edema and no tenderness. Lymphadenopathy: No cervical adenopathy. Neurological: Alert and oriented to person, place, and time. Skin: Skin is warm and dry. No rash noted. Not diaphoretic. No erythema. No pallor. Psychiatric: Normal mood and affect. Behavior is normal. Judgment and thought content normal. Old records reviewed and summarized in HPI Spirometry today showed moderate obstuction with FEV1 56% and FVC 75%; FEV1 is stable from 49% in 10/14 I reviewed the images from CXR on 02/15/11 which show a normal CXR without evidence of pneumonia. Assessment and Plan: 1. History of insect bite - has had large local reactions to mosquitoes and blackflies There is no indication for immunotherapy as she has never had anaphylaxis to hymenoptera It is unclear that she requires Epipen but she prefers to keep this with her due to concern about having a reaction to bees 2. Urticaria after getting stung by mosquito - If she does develop this or large local reactions, zyrtec prn may be helpful in resolving symptoms sooner. If she does develop any respiratory symptoms after getting stung by bees, then re- consult with allergy is indicated. 3. COPD - lung function is stable. She will continue Advair and spiriva and follow up with her Medical File Clerk. I would suggest that her hoarseness might improve if she was switched to the Advair HFA but I will leave this decision to her sample cutter. She can follow up in the allergy clinic prn documented in this encounter Plan of Treatment Upcoming Encounters Date Type Department Care Team (Late st Contact Info) Description 05/29/2024 2:00 PM EDT Office Visit Cardiology at [address] [phone] Estiven Raza MD [facility] [place] [address] documented as of this encounter Visit Diagnoses Diagnosis COPD (chronic obstructive pulmonary disease) Chronic airway obstruction, not elsewhere classified Insect bite Other, multiple, and unspecified sites, insect bite, nonvenomous, without mention of infection Urticaria Urticaria, unspecified documented in this encounter Care Teams Rolling Machine Operator Relationship Specialty Start Date End Date Alexys Morales MD [facility] [place] [place] [address] PCP - General 06/28/10 02/12/12 documented as of this encounter
--- OUTSIDE RECORDS SUMMARY | 2024-05-02 14:02 | XMS_ITS | Encounter Summary ---
Author Organization [facility] Address [facility] [place] [address] Care Team Providers Care Secretary Administrative Assistant Name Role Phone Buddy Hicks MD Primary Care Provider Encounter Details Date Type Department Care Team (Late st Contact Info) Description 11/18/2009 Orders [place] [address] Amy Dewey MD [facility] [place] [address] Social History Tobacco Use Types Packs/Day Years [...] PM EDT Office Visit Cardiology at [address] [phone] Estiven Raza MD [facility] [place] [address] documented as of this encounter Procedures Procedure Name Priority Date/Time Associated Diagnosis Comments FILM LIBRARY STORAGE ONLY DX CHEST Routine 11/18/2009 3:19 PM EDT documented in this encounter Results * Film Library- Storage only DX Chest (11/18/2009 3:19 PM EDT) 11/18/2009 3:19 PM EDT Narrative RAD - 02/17/2014 10:40 AM EDT This is a non-reportable exam. Procedure Note Noel Elizabeth - 02/17/2014 This is a non-reportable exam. Amy Dewey MD IMG FILM LIBRARY ORDERABLES RAD [address] [place] [address] documented in this encounter Visit Diagnoses Not on filedocumented in this encounter Care Teams Secretary Administrative Assistant Relationship Specialty Start Date End Date Buddy Hicks MD [facility] [address] [facility] [place] [address] PCP - General 02/13/12 07/21/14 documented as of this encounter
--- OUTSIDE RECORDS SUMMARY | 2024-05-02 14:02 | XMS_ITS | Encounter Summary ---
Author Organization Formerly [facility] Address One [facility] [place] [address] Care Team Providers Care Maintainer Central Office Name Role Phone Alexys Morales MD Primary Care Provider [phone] Encounter Details Date Type Department Care Team (Latest Contact Info) Description 02/15/2011 12:12 PM EDT - 02/15/2011 11:59 PM EDT Hospital Encounter XRay at [address] [place] [id number] COPD (chronic obstructive pulmonary disease) Social History [...] Sig Dispensed Refills Start Date End Date fluocinonide (LIDEX) 0.05 % cream Apply topically 2 times daily as needed. 2 epiNEPHrine (EPIPEN) 0.3 mg/0.3 mL injection Inject 0.3 mLs into the muscle daily as needed. 2 each 1 01/30/2011 05/02/2011 LORazepam (ATIVAN) 1 mg tablet Take 1 tablet by mouth 2 times daily as needed for Anxiety. May fill 01-24-11 at [facility] [place] 30 tablet 0 01/24/2011 02/21/2011 triamterene-hydrochlo rothiazide (MAXZIDE-25) 37.5-25 mg per tablet Take 0.5 tablets by mouth daily. 45 tablet 1 01/24/2011 01/29/2012 fluticasone-salmetero l (ADVAIR DISKUS) 250-50 mcg/dose diskus inhaler 1 Disk(s) Inh Once daily PRN 10/24/2010 02/21/2011 tiotropium (SPIRIVA WITH HANDIHALER) 18 mcg inhalation capsule 1 Capsule(s) Inh Once daily 10/24/2010 08/29/2011 gabapentin (NEURONTIN) 300 mg capsule 1 tablet in am and 2 tablets at hs PO 1 tablet in am and 2 tablets at HS 10/24/2010 03/14/2011 hydroxychloroquine (PLAQUENIL) 200 mg tablet 400 MG = 2 Tablet(s) PO Once daily 10/24/2010 04/21/2011 CALCIUM CARBONATE ORAL 10/24/2010 05/02/2011 ergocalciferol (ERGOCALCIFEROL) 50,000 unit capsule 68324 UNIT = 1 Capsule(s), PO, Once weekly x 6; then once monthly 10/24/2010 08/24/2011 albuterol (PROVENTIL HFA;VENTOLIN HFA) 90 mcg/Actuation inhaler 1 Puff Inh PRN 10/24/201001/2011 documented as of this encounter Plan of Treatment Upcoming Encounters Date Type Department Care Team (Late st Contact Info) Description 05/29/2024 2:00 PM EDT Office Visit Cardiology at [address] [address] Estiven Raza MD [facility] [place] [address] documented as of this encounter Procedures Procedure Name Priority Date/Time Associated Diagnosis Comments DIFFERENTIAL, AUTOMATED Routine 02/15/2011 2:52 PM EDT XR CHEST PA AND LATERAL Routine 02/15/2011 12:33 PM EDT COPD (chronic obstructive pulmonary disease) documented in this encounter Results * REFLEX LAB-A-DIFF (02/15/2011 2:52 PM EDT) Neutrophil % 59.3 34.0 - 71.0 % CERNER MILLENNIUM Neutrophil Absolute 4.21 1.50 - 6.30 x10(3)/mcL CERNER MILLENNIUM Lymph % 29.2 19.0 - 53.0 % CERNER MILLENNIUM Lymphocytes Abs 2.1 1.0 - 3.6 x10(3)/mcL CERNER MILLENNIUM Monocyte % 8.5 4.0 - 13.0 % CERNER MILLENNIUM Monocyte Abs 0.6 0.2 - 1.0 x10(3)/mcL CERNER MILLENNIUM Eos % 2.0 0.0 - 7.0 % CERNER MILLENNIUM Eosinophils Abs 0.1 0.0 - 0.5 x10(3)/mcL CERNER MILLENNIUM Basophil % 0.7 0.0 - 2.0 % CERNER MILLENNIUM Baso Absolute 0.1 0.0 - 0.2 x10(3)/mcL CERNER MILLENNIUM Immature Gran % 0.30 0.00 - 0.66 % CERNER MILLENNIUM Comment: Immature granulocytes(IG's)percentage and absolute count will include metamyelocytes, myelocytes, and promyelocytes. Blood smears from CBCs yielding IG's will be scanned manually for concordance. If this scan disagrees with the automated IG or if promyelocytes are noted, a manual differential will be performed. Immature Gran Absolute 0.02 0.00 - 0.05 x10(3)/mcL CERNER MILLENNIUM Blood specimen (specimen) 02/15/2011 2:52 PM EDT 02/15/2011 4:18 PM EDT René Freeman MD HEMATOLOGY ORDERABLE S SHIRA MORALEZIUM * XR chest routine PA & lateral (02/15/2011 12:33 PM EDT) Anatomical Region Laterality Modality Chest N/A Radiographic Kvaita ging 02/15/2011 12:3 3 PM EDT Impressions [...] classified documented in this encounter Care Teams Maintainer Central Office Relationship Specialty Start Date End Date Alexys Morales MD [facility] [place] [address] PCP - General 06/28/10 02/12/12 documented as of this encounter
--- OUTSIDE RECORDS SUMMARY | 2024-05-02 14:02 | XMS_ITS | Encounter Summary ---
Author Organization [facility] Address [facility] [place] [address] Care Team Providers Care Global Mobility Specialist Name Role Phone Unavailable Primary Care Provider Unavailabl e Encounter Details Date Type Department Care Team (Late st Contact Info) Description 06/07/2010 11:30 AM EDT Procedure visit [place] [address] [facility] None Social History Tobacco Use Types Packs/Day [...] PM EDT Office Visit Cardiology at [address] [address] Estiven Raza MD [facility] [place] [address] documented as of this encounter Visit Diagnoses Not on filedocumented in this encounter
--- OUTSIDE RECORDS SUMMARY | 2024-05-02 14:02 | XMS_ITS | Encounter Summary ---
Author Organization [facility] Address [address] [place] [address] Care Team Providers Care Peoplesoft Hcm Consultant Name Role Phone Kiko Solis MD Primary Care Provider [phone] Encounter Details Date Type Department Care Team (Late st Contact Info) Description 06/28/2021 Lab Requisition [facility] Pathology & Laboratory Medicine - [address] [id number] Outr Resulting Lab, Provider Social History Tobacco [...] Comments ZZCOVID-19 TEST [facility] PCR Today 06/27/2021 16:00 EST COVID-19 TESTING Routine 06/27/2021 16:0 0 EST documented in this encounter Results * COVID-19 TEST [facility] PCR (06/27/2021 16:00 EST) Swab 06/27/2021 16:0 0 EST 06/28/2021 16:54 EST Provider Outr Resulting Lab MICROBIOLOGY - GENERAL ORDERABLES [facility] [address] [place] [address] * COVID-19 TESTING (06/27/2021 16:00 EST) COVID-19 rt-PCR Result Negative Negative 06/29/2021 14:57 EST [facility] Comment: This test has not [...] was performed using the kris SARS-CoV-2 assay ([employer] on the Kris 6800 System Performing Lab Kris [address] [facility] Lab 06/29/2021 14:57 EST [facility] Swab 06/27/2021 16:0 0 EST 06/28/2021 16:54 EST Provider Outr Resulting Lab MICROBIOLOGY - GENERAL ORDERABLES [facility] [address] [place] [address] documented in this encounter Visit Diagnoses Not on filedocumented in this encounter Care Teams Peoplesoft Hcm Consultant Relationship Specialty Start Date End Date Kiko Solis MD [facility] [address] [place], [place] [id number] PCP - General 06/17/15 documented as of this encounter
--- OUTSIDE RECORDS SUMMARY | 2024-05-02 14:03 | XMS_ITS | Encounter Summary ---
Author Organization [facility] Address [address] [place] [address] Care Team Providers Care Gaming Cage Worker Name Role Phone Unavailable Primary Care Provider Unavailabl e Encounter Details Date Type Department Care Team (Late st Contact Info) Description 03/16/2004 Results Only [facility] - Maple conversion [address] [place] [address] Wojciech Michel MD [address] [place] [address] Social History Tobacco Use Types Packs/Day Years Used Date Smoking Tobacco: Never Assessed Sex and Gender Information Value Date Recorded Sex Assigned at Not on file Gender Identity Not on file Sexual Orientation Not on file documented as of this encounter Plan of Treatment Not on file documented as of this encounter Procedures Procedure Name Priority Date/Time Associated Diagnosis Comments CYTOPATHOLOGY Routine 03/16/2004 0:00 EDT documented in this encounter Results * CYTOPATHOLOGY (03/16/2004 0:00 EDT) Pathology Report: CYTOPATHOLOGY REPORT Reports generated via electronic interface contain original data; however they are lacking the format of the original report. Caution should be taken when reading/interpreti ng unformatted reports. Name: ? THANH GONZALEZ ? Accession #: ? [id number] : ? 1950 (Age: 53) ??F ?Collect Date: ? 03/16/2004 Location: ? [facility] ? Receive Date: ? 03/18/2004 Provider: ?WOJCIECH MICHEL MD Copy to: ? Specimen/Source: ?ThinPrep Pap Test, Cervix/Endocervix Last Menstrual Period: ? Menstrual/Pregnanc y Status: ? Post Menopausal ? SPECIMEN ADEQUACY ? Satisfactory for Evaluation - transformation zone component present GENERAL CATEGORIZATION ? Negative for Intraepithelial Lesion or Malignancy ? Document reviewed and electronically signed by: ? Tatyana Ashton, [place](ASCP)(IAC) ? Report Date: ??03/22/2004 18:53 End of Report [facility] 03/16/2004 03/18/2004 Wojciech Michel MD PATHOLOGY ORDERABLES [facility] [address] [place] [address] documented in this encounter Visit Diagnoses Not on filedocumented in this encounter
--- OUTSIDE RECORDS SUMMARY | 2024-05-02 14:03 | XMS_ITS | Encounter Summary ---
Author Organization [facility] Address [address] [place] [address] Care Team Providers Care Chocolate Finisher Name Role Phone Unavailable Primary Care Provider Unavailabl e Encounter Details Date Type Department Care Team (Late st Contact Info) Description 09/11/2008 Before PRISM Converted Visit (Maple) [facility] - Maple conversion [address] [place] [address] Flaco Kruger MD [address] [place] [address] Social History Tobacco Use Types Packs/Day Years Used Date Smoking Tobacco: Never Assessed Sex and Gender Information Value Date Recorded Sex Assigned at Not on file Gender Identity Not on file Sexual Orientation Not on file documented as of this encounter Plan of Treatment Not on file documented as of this encounter Procedures Procedure Name Priority Date/Time Associated Diagnosis Comments CYTOPATHOLOGY Routine 09/11/2008 0:00 EST documented in this encounter Results * CYTOPATHOLOGY (09/11/2008 0:00 EST) Pathology Report: CYTOPATHOLOGY REPORT ? Reports generated via electronic interface contain original data; ? however they are lacking the format of the original report. ? Caution should be taken when reading/interpreti ng unformatted reports. ? Name: ? ALEX THANH ? Accession #: ? [id number] ? : ? 1950 (Age: 57) ??F ?Collect Date: ? 09/11/2008 ? Location: ? [facility] ? Receive Date: ? 09/15/2008 ? Provider: ?FLACO KRUGER MD ? Copy to: ?PAULO DOSHI MD ? Specimen/Source: ?Pap Test, Vagina/Cervix/Endo cervix, ThinPrep Imaging ? System with manual evaluation ? Last Menstrual Period: ? Previous Gynecologic Pathology: ? ASC-US: 1998 ? Treatment History: ? Colposcopy: Elsewhere ? SPECIMEN ADEQUACY ? Satisfactory for Evaluation ? - transformation zone component present ? GENERAL CATEGORIZATION ? Negative for Intraepithelial Lesion or Malignancy ? Document reviewed and electronically signed by: ? Diego N. Braden, CT(ASCP) ? Report Date: ??09/21/2008 14:19 ? End of Report ? [facility] 09/11/2008 09/15/2008 Flaco Kruger MD PATHOLOGY ORDERABLES [facility] [address] [place] [address] documented in this encounter Visit Diagnoses Not on filedocumented in this encounter
--- OUTSIDE RECORDS SUMMARY | 2024-05-02 14:03 | XMS_ITS | Encounter Summary ---
Author Organization [facility] Address [address] [place] [address] Care Team Providers Care Fence Maker Name Role Phone Unavailable Primary Care Provider Unavailabl e Encounter Details Date Type Department Care Team (Late st Contact Info) Description 01/22/[address] [facility] - Maple conversion [address] [place] [address] Wojciech Michel MD [address] [place] [address] Social History Tobacco Use Types [...] Priority Date/Time Associated Diagnosis Comments CYTOPATHOLOGY Routine 01/22/2003 0:00 EDT documented in this encounter Results * CYTOPATHOLOGY (01/22/2003 0:00 EDT) Pathology Report: CYTOPATHOLOGY REPORT Reports generated via electronic interface contain original data; however they are lacking the format of the original report. Caution should be taken when reading/interpreti ng unformatted reports. Name: ? THANH GONZALEZ ? Accession #: ? [id number] : ? 1950 (Age: 52) ??F ?Collect Date: ? 01/22/2003 Location: ? [facility] ? Receive Date: ? 01/26/2003 Provider: ?WOJCIECH MICHEL MD Copy to: ? Specimen/Source: ?ThinPrep Pap Test, Cervix/Endocervix Last Menstrual Period: ? Menstrual/Pregnanc y Status: ? Post Menopausal Other: ? HPVA - HPV testing requested if ASC-US on the current ThinPrep Pap test. ? SPECIMEN ADEQUACY ? Satisfactory for Evaluation - transformation zone component present GENERAL CATEGORIZATION ? Negative for Intraepithelial Lesion or Malignancy ? Document reviewed and electronically signed by: ? Kia Corral, SCT(ASCP) ? Report Date: ??01/28/2003 16:42 End of Report [facility] 01/22/2003 01/26/2003 Wojciech Michel MD PATHOLOGY ORDERABLES [facility] [address] [place] [address] documented in this encounter Visit Diagnoses Not on filedocumented in this encounter
--- OUTSIDE RECORDS SUMMARY | 2024-05-02 14:03 | XMS_ITS | Encounter Summary ---
Author Organization [facility] Address [address] [place] [address] Care Team Providers Care Dairy Feed Sales Consultant Name Role Phone Unavailable Primary Care Provider Unavailabl e Encounter Details Date Type Department Care Team (Late st Contact Info) Description 12/13/2010 Results Only [facility] - [facility] [address] [place], [place] [id number] Flaco Kruger MD [address] [place] [address] Social History Tobacco Use Types Packs/Day Years [...] Diagnosis Comments PAP TEST- RESULT ONLY Routine 12/13/2010 0:00 EDT documented in this encounter Results * PAP TEST- RESULT ONLY (12/13/2010 0:00 EDT) Pathology Report: CYTOPATHOLOGY REPORT ? Reports generated via electronic interface contain original data; ? however they are lacking the format of the original report. ? Caution should be taken when reading/interpreti ng unformatted reports. ? Name: ? ALEX, THANH ? Accession #: ? [id number] ? : ? 1950 (Age: 60) ??F ?Collect Date: ? 12/13/2010 ? Location: ? [facility] ? Receive Date: ? 12/20/2010 ? Provider: ?FLACO KRUGER MD ? Copy to: ? Specimen/Source: ?Pap Test, Vagina/Cervix/Endo cervix, ThinPrep Imaging ? System with manual evaluation ? Last Menstrual Period: ? Previous Gynecologic Pathology: ? ASC-US: H/O 1998 ? Yes: atrophic vaginitis ? Treatment History: ? Colposcopy: else where ? SPECIMEN ADEQUACY ? Satisfactory for Evaluation ? - transformation zone component present ? GENERAL CATEGORIZATION ? Negative for Intraepithelial Lesion or Malignancy ? Document reviewed and electronically signed by: ? Bruna Verville,CT(ASCP) ? Report Date: ??12/22/2010 14:47 ? End of Report ? [facility] 12/13/2010 12/20/2010 Flaco Kruger MD PATHOLOGY ORDERABLES [facility] [address] [place] [address] documented in this encounter Visit Diagnoses Not on filedocumented in this encounter
--- OUTSIDE RECORDS SUMMARY | 2024-05-02 14:03 | XMS_ITS | Encounter Summary ---
Author Organization [facility] Address [address] [place] [address] Care Team Providers Care Therapeutic Specialist Name Role Phone Unavailable Primary Care Provider Unavailabl e Encounter Details Date Type Department Care Team (Late st Contact Info) Description 03/23/2008 Before PRISM Converted Visit (Maple) [facility] - Maple conversion [address] [place] [address] Kiko Velasquez MD [address] [place] [id number] Social History Tobacco Use Types Packs/Day Years Used Date Smoking Tobacco: Never Assessed Sex and Gender Information Value Date Recorded Sex Assigned at Not on file Gender Identity Not on file Sexual Orientation Not on file documented as of this encounter Plan of Treatment Not on file documented as of this encounter Procedures Procedure Name Priority Date/Time Associated Diagnosis Comments SURGICAL PATHOLOGY Routine 03/23/2008 0:00 EDT documented in this encounter Results * SURGICAL PATHOLOGY (03/23/2008 0:00 EDT) Pathology Report: SURGICAL PATHOLOGY REPORT ? Reports generated via electronic interface contain original data; ? however they are lacking the format of the original report. ? Caution should be taken when reading/interpreti ng unformatted reports. ? Name: ? GONZALEZ, THANH ? Accession #: ? [id number] ? : ? 1950 (Age: 57) ??F ? Collect Date: ? 03/23/2008 ? Location: ? [facility] ? Receive Date: ? 03/23/2008 ? Provider: KIKO VELASQUEZ MD ? Copy to: PAULO GLENDA MD ? Final Pathologic Diagnosis: ? A. ?Colon, sigmoid, biopsies: ? 1. ?Focal, minimal active colitis. ??See comment. ? B. ?Rectum, polyp, polypectomy: ? 1. ?Tubular adenoma. ? Comment: ? Histologic sections from the sigmoid colon (A) show focal acute cryptitis ?? without significant architectural disarray. ??No granulomas are identified. ? Overall, the findings are non-specific and could be related to bowel preparation effect versus possible resolving infectious/self-li mited colitis. ??Clinical and endoscopic correlation is essential. ??(Dr. Thurman)/[facility] ? Document reviewed and electronically signed by: ? JOE THURMAN MD ? Report ??Date: 03/25/2008 14:33 ? By the signature above, the attending physician certifies that he/she has ? personally conducted a gross and/or microscopic examination of the described ? specimens and rendered or confirmed the above diagnosis. ? Specimen(s) Received: ? A. ?Sigmoid bx (#1) ? B. ? Rectum bx (#2) ? Clinical History: ? Personal history of diarrhea. ??Screening for colon cancer. ? Gross Description: ? Received in Hollande's solution labelled Gonzalez and sigmoid biopsy are three pink-ortiz irregular soft tissues ranging from 0.2 x 0.2 x 0.2 cm to 0.3 x ?? 0.2 x 0.2 cm. ??Submitted in toto in (A). ? Received in Robby's solution labelled Gonzalez and rectum biopsy is a ? single 1.1 x 1.0 x 0.7 cm, pink-ortiz, pedunculated, polypoid, soft tissue. ??The ?? specimen has its presumed base inked, is step sectioned and entirely submitted ?? in (B1) and (B2). ??(Mariposa Cerna)/tiffany ? End of Report ? [facility] 03/23/2008 03/23/2008 18: 48 EDT Kiko Velasquez MD PATHOLOGY ORDERABLE S [facility] [address] [place] [address] documented in this encounter Visit Diagnoses Not on filedocumented in this encounter
--- NOTE | 2024-05-02 14:30 | DI.RAD_ITS ---
Exam(s) XR FEMUR LT EXAM: XR FEMUR LT CLINICAL HISTORY: pain rt hip and femur. TECHNIQUE: 2D digital imaging was performed. COMPARISON: No exams were available for comparison FINDINGS: Two views-AP and lateral No evidence of left hip nor left femur fracture. Bone density normal. No osseous lesions. Only mil d degenerative changes are noted in the hip joint and knee joint. Vascular calcification is noted in the common femoral artery. IMPRESSION: No fracture of the femur evident. DATA REPOSITORY: RADIATION DOSE DELIVERED:
--- NOTE | 2024-05-02 14:30 | DI.RAD_ITS ---
Exam(s) XR PELVIS AP EXAM: XR PELVIS AP CLINICAL HISTORY: pain rt hip and femur. TECHNIQUE: 2D digital imaging was performed. FINDINGS: Single AP view the hips-pelvis No evidence of pelvic nor hip fractures. Minimal degenerative changes in the hips. Vascular calcifi cation in the common femoral artery left side is now evident. Bone density normal. No osseous lesions. Degenerative disc disease noted in the lumbar spine IMPRESSION: No pelvic nor hip fractures identified. DATA REPOSITORY: RADIATION DOSE DELIVERED:
[2024-05-02] MEDS: Acetaminophen 325 MG TAB 650 MG PO (14:40)
[2024-05-02] MEDS: Lidocaine 5% Patch 1 PATCH TP (14:53)
--- NOTE | 2024-05-02 15:36 | ED.GENADUL_ITS ---
Discharge Plan Disposition Patient Disposition: Home Condition: Stable Discharge Details Clinical Impression: Left sciatic nerve pain Primary Care Provider: Loulou Hare ED Provider: Nikko Jalloh Home Meds and New Rx's Prescriptions: Continued amlodipine 5 mg tablet 5 mg PO DAILY Qty: 90 3RF atorvastatin 80 mg tablet 80 mg PO QPM Qty: 90 4RF citalopram 20 mg tablet 40 mg PO DAILY Qty: 180 4RF furosemide 20 mg tablet 20 mg PO DAILY Qty: 90 3RF Rx Instructions: [facility] [place] gabapentin 300 mg capsule 300 mg PO 1 tab am, 2tabs pm Qty: 270 4RF levothyroxine 50 mcg tablet 50 mcg PO DAILY Qty: 90 4RF potassium chloride 20 mEq tablet,ER particles/crystals 20 meq PO DAILY Qty: 90 3RF alendronate 70 mg tablet 70 mg PO QWEEK Qty: 12 4RF nitroglycerin [Nitrostat] 0.4 mg tablet, sublingual 0.4 mg Sublingual Q5 MIN PRN X3 PRN (Reason: Chest Pain) Qty: 30 0RF epinephrine [EpiPen 2-Mikel] 0.3 mg/0.3 mL auto-injector 0.3 mg IM ONCE Qty: 1 3RF tiotropium-olodaterol 2.5-2.5 mcg/actuation mist 2 puff inhalation DAILY Qty: 4 3RF Combivent Respimat 20-100 mcg/actuation mist 1 puff Inhalation Q4H PRN (Reason: Exacerbation COPD) Qty: 4 4RF Rx Instructions: dispense 3 inhalers triamcinolone acetonide 0.1 % cream See Rx Instructions .ROUTE .COMPLEX Qty: 30 0RF Dose Instruction: APPLY 1 APPICATION TOPICALLY TWICE A DAY NEEDED FOR RASH Rx Instructions: APPLY 1 APPICATION TOPICALLY TWICE A DAY NEEDED FOR RASH ipratropium-albuterol 0.5 mg-3 mg(2.5 mg base)/3 mL solution for nebulization 3 ml inhalation Q6H PRNQty: 180 0RF (DME) Space Chamber Plus 1 EACH spacer 1 ea Miscellaneous PRN Qty: 1 0RF aspirin 81 MG tablet,delayed release (DR/EC) 81 mg PO DAILY 0RF Discharge Instructions Instructions: Sciatica Exercises, Sciatica ED Additional Instructions: X-rays today of your left femur and pelvis did not show any fractures. Please take acetaminophen (tylenol) - 650mg every 6 hours by mouth as needed for pain. Please take ibuprofen over the counter. Take 600mg by mouth every 6 hours as needed for pain. Please follow-up with physical therapy. Please follow-up with your primary care physician. Return to the ER immediately for any worsening or new concerning symptoms. Stand Alone Forms: Physical Therapy Referral Referrals: Loulou Hare NP [Primary Care Provider] - [facility] General Mode of arrival: ambulatory . Date/Time Provider Initiated Documentation: 05/02/24 13:59 . Limitations to Documentation: no limitations . Information obtained by: patient . HPI Narrative: 73-year-old female presents with chief complaint of left hip pain. Patient notes pain in her left buttock radiating down her left posterior lateral leg. She states she has chronic low back pain and has been diagnosed with spinal stenosis remotely. She denies bowel or bladder dysfunction. No numbness tingling or focal weakness. No associated fever or chills. No rash. Related Data Home Medications ?Medication ?Instructions ?Recorded ?Confirmed inhalational spacing device (Space ##1 01/11/18 05/02/24 Chamber Plus) aspirin 81 mg tablet,delayed 81 mg PO DAILY 03/01/18 05/02/24 release nitroglycerin 0.4 mg sublingual 0.4 mg sublingual Q5 MIN PRN X3 08/30/21 05/02/24 tablet (Nitrostat) PRN Chest Pain #30 tabs epinephrine 0.3 mg/0.3 mL 0.3 mg (0.3 mL) IM ONCE #1 ea 12/11/22 05/02/24 injection, auto-injector (EpiPen 2-Mikel) alendronate 70 mg tablet 70 mg PO QWEEK #12 tabs 04/07/23 05/02/24 ipratropium 0.5 mg-albuterol 3 mg 3 ml inhalation Q6H PRN #180 mL 04/22/23 05/02/24 (2.5 mg base)/3 mL nebulization soln amlodipine 5 mg tablet 5 mg PO DAILY #90 tabs 07/26/23 05/02/24 atorvastatin 80 mg tablet 80 mg PO QPM #90 tabs 07/26/23 05/02/24 citalopram 20 mg tablet 40 mg (2 x 20 mg) PO DAILY #180 12/21/23 09/27/24 tab-caps furosemide 20 mg tablet 20 mg PO DAILY #90 tabs 07/26/23 05/02/24 gabapentin 300 mg capsule 300 mg PO 1 tab am, 2tabs pm #270 07/26/23 05/02/24 tabs levothyroxine 50 mcg tablet 50 mcg PO DAILY #90 tab-caps 07/26/23 05/02/24 potassium chloride 20 mEq 20 meq PO DAILY #90 tabs 07/26/23 05/02/24 tablet,extended release(part/cryst) ipratropium 20 mcg-albuterol 100 1 puff inhalation Q4H PRN 01/04/24 05/02/24 mcg/actuation mist for inhalation Exacerbation COPD #4 grams (Combivent Respimat) tiotropium 2.5 mcg-olodaterol 2.5 2 puff inhalation DAILY #4 grams 01/04/24 05/02/24 mcg/actuation mist for inhalation triamcinolone acetonide 0.1 % See Rx Instructions .Route 03/03/24 05/02/24 topical cream .COMPLEX #30 grams Previous Rx's ?Medication ?Instructions ?Recorded inhalational spacing device (Space ##1 01/11/18 Chamber Plus) aspirin 81 mg tablet,delayed 81 mg PO DAILY 03/01/18 release nitroglycerin 0.4 mg sublingual 0.4 mg sublingual Q5 MIN PRN X3 08/30/21 tablet (Nitrostat) PRN Chest Pain #30 tabs epinephrine 0.3 mg/0.3 mL 0.3 mg (0.3 mL) IM ONCE #1 ea 12/11/22 injection, auto-injector (EpiPen 2-Mikel) alendronate 70 mg tablet 70 mg PO QWEEK #12 tabs 04/07/23 ipratropium 0.5 mg-albuterol 3 mg 3 ml inhalation Q6H PRN #180 mL 04/22/23 (2.5 mg base)/3 mL nebulization soln amlodipine 5 mg tablet 5 mg PO DAILY #90 tabs 07/26/23 atorvastatin 80 mg tablet 80 mg PO QPM #90 tabs 07/26/23 citalopram 20 mg tablet 40 mg (2 x 20 mg) PO DAILY #180 07/26/23 tab-caps furosemide 20 mg tablet 20 mg PO DAILY #90 tabs 07/26/23 gabapentin 300 mg capsule 300 mg PO 1 tab am, 2tabs pm #270 07/26/23 tabs levothyroxine 50 mcg tablet 50 mcg PO DAILY #90 tab-caps 07/26/23 potassium chloride 20 mEq 20 meq PO DAILY #90 tabs 07/26/23 tablet,extended release(part/cryst) ipratropium 20 mcg-albuterol 100 1 puff inhalation Q4H PRN 01/04/24 mcg/actuation mist for inhalation Exacerbation COPD #4 grams (Combivent Respimat) tiotropium 2.5 mcg-olodaterol 2.5 2 puff inhalation DAILY #4 grams 01/04/24 mcg/actuation mist for inhalation triamcinolone acetonide 0.1 % See Rx Instructions .Route 03/03/24 topical cream .COMPLEX #30 grams Allergies Allergy/AdvReac Type Severity Reaction Status Date / Time bee venom protein (honey bee) Allergy Severe Anaphylaxsi Verified 05/02/24 13:59 s tetanus toxoid, adsorbed Allergy Severe swelling,fe Verified 05/02/24 13:59 geneva benzonatate (From Tessalon Allergy Mild rash Verified 05/02/24 13:59 Perles) sulfamethoxazole Allergy Itching Verified 05/02/24 13:59 amoxicillin trihydrate (From AdvReac Intermediate Diarrhea - Verified 05/02/24 13:59 Augmentin) Severe potassium clavulanate (From AdvReac Intermediate Diarrhea - Verified 05/02/24 13:59 Augmentin) Severe insects Allergy Severe Anaphylaxsi Uncoded 05/02/24 13:59 s General Stated Complaint: Orthopedic HOLLIS: 4 Review of Systems All systems reviewed & are unremarkable except as noted in HPI and below Constitutional Constitutional: Denies fever(s) Musculoskeletal Musculoskeletal: Reports as per HPI Exam Const General: cooperative and no acute distress HENMT Mouth: moist mucous membranes Eyes Conjunctivae: normal conjunctivae Sclera: normal sclerae Neck Neck: trachea midline and supple Resp Auscultation: clear to auscultation bilaterally, no rales, no rhonchi and no wheezes Cardio Rate: regular rate and not tachycardic Rhythm: regular rhythm GI Palpation: soft, not firm, no guarding, no masses, not rigid and nontender Back/Spine/Pelvis Cervical Spine: No cervical spinal tenderness Thoracic/Lumbar Spine: No thoracic spinal tenderness and No lumbar spinal tenderness Pelvis: no buttock ecchymosis, buttock tenderness on the left and no buttock swelling Skin General skin exam: no rashes or lesions noted Neuro General: patient alert, patient awake, patient oriented x3 and tone normal Cognition: normal cognition Sensory Exam: other (No saddle anesthesia) Extrem General: no edema Left lower extremity: hip/thigh Details: tenderness Location: of the hip Location: laterally and posteriorly; no swelling, no ecchymosis, no deformity and no unusual warmth Other: Positive straight leg raise on the left, distal motor and sensation intact Psych Appearance: grossly normal Mental Status: mental status grossly normal Course Vital Signs Vital signs: Vital Signs Temperature 36.7 C 05/02/24 13:52 Pulse 66 05/02/24 13:52 Respiratory Rate 14 05/02/24 13:52 Blood Pressure 164/71 H 05/02/24 13:52 Pulse Oximetry 92 05/02/24 13:52 Temperature 36.7 C 05/02/24 13:52 Temperature Source Oral 05/02/24 13:52 Pulse 66 05/02/24 13:52 Respiratory Rate 14 05/02/24 13:52 Respiratory Effort Normal, Non-Labored 05/02/24 13:57 Blood Pressure 164/71 H 05/02/24 13:52 Blood Pressure Position Sitting 05/02/24 13:52 Pulse Oximetry 92 05/02/24 13:52 Oxygen Delivery Method Room Air 05/02/24 13:52 Oxygen Flow Rate 0 05/02/24 13:52 Pain Level 7 05/02/24 14:37 Medical Decision Making 73yo female with history of spinal stenosis, here with left buttock pain that extends into her left posterior lateral thigh. Patient does not recall any traumatic injuries but she is concerned that she may have injured her hip. She has no inflammatory changes appreciated on exam of the hip or lower extremity. Patient is neurovascular intact distally, she has no saddle anesthesia, no bowel or bladder dysfunction. X-ray of the pelvis was interpreted by radiology: No pelvic nor hip fractures identified. X-ray of the femur was interpreted by radiology: No fracture. Suspect lumbosacral radiculopathy. Plan for supportive care. She was given acetaminophen and lidocaine patch and noted improvement in her pain. I will refer her to physical therapy. Usual customary discharge instructions were reviewed. 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 seen at [facility] [place] - has been stable on meds Anxiety (Chronic 09/03/14) Right carotid bruit (Acute) Osteoarthritis (Chronic) Osteoporosis (Chronic) ; left arm, started fosamax Shoulder pain, right (Acute) COVID-19 (Acute) Medical History Pharyngoesophageal dysphagia Normal larygoscopy 07/2020 CAD (coronary artery disease), [place] coronary artery sees cardiology at [facility] [place] yearly Hymenoptera allergy (12/04/14) NSTEMI (non-ST elevated myocardial infarction) Surgical History History of ankle surgery Family History Mother Asthma Father Diabetes Grandfather No problems noted. Grandfather No problems noted. Grandmother No problems noted. Grandmother No problems noted. Social History Smoking/Tobacco Use Status: Former Tobacco Use Tobacco: How many years used: 30 Second Hand Exposure: Yes Smoking risk assessment performed?: Yes Alcohol Intake: never Drug use: Never Substance use type: does not use Household members: children and other Details: 4 WITH 3 SONS Housing: house Duration: 15-30 minutes/day Frequency: 1-2 times per week Seatbelt use: always Do you feel safe at home: Yes Do you feel safe in your relationship?: Yes
[2024-05-02 15:47] VITALS: BP 158/76; PULSE 54; TEMP 36.7; O2SAT 95
== END 2024-05-02 15:47 | disposition home or self-care (01) ==
PROVIDERS: Emergency Provider Student in an Organized Health Care Education/Training Program; PCP Nurse Practitioner Family
DX: M54.32 Sciatica, left side (principal)
CPT/HCPCS: 73552; 99284; 72170; 99283

== ENCOUNTER → 2024-05-26 15:06 | Outpatient (BNVA) | payer MEDICARE, SELFPAY | PROVIDERS: PCP Nurse Practitioner Family; Referring Provider Nurse Practitioner Family; Visit Provider Physician Assistant Surgical | DX: J43.1 Panlobular emphysema (principal); J96.11 Chronic respiratory failure with hypoxia | CPT/HCPCS: 99214 ==

== ENCOUNTER 2024-09-27 02:14 | Inpatient (IN) | payer MEDICARE, SELFPAY ==
[2024-09-27] VITALS (66 sets, daily range): BP systolic 110–183; BP diastolic 57–131; PULSE 67–128; RESP 5–31; TEMP 36.6–39.2; O2SAT 88–98
--- NOTE | 2024-09-27 02:15 | DI.RAD_ITS ---
Exam(s) XR CHEST 2V PA LATERAL EXAM: XR CHEST 2V PA LATERAL CLINICAL HISTORY: Cough, COPD exac, fever TECHNIQUE: 2D digital imaging was performed of the chest. Two images were obtained. PA and lateral views were obtained. COMPARISON: CR,XR XR CHEST 2V PA LATERAL from 11/18/2023 CR,XR XR PORTABLE CHEST AP from 12/21/2023 FINDINGS: MEDIASTINUM: Normal. HEART: Normal. PULMONARY VASCULATURE: Normal. LUNGS: Chronic interstitial markings are seen in the lungs which appears stable. No evidence of a fo sara new infiltrate is seen. PLEURAL SPACE: No pleural effusion or pneumothorax. BONE:Within normal limits for the patient's age. OTHER FINDINGS:Normal. IMPRESSION: No acute pulmonary findings. DATA REPOSITORY: RADIATION DOSE DELIVERED:
--- NOTE | 2024-09-27 02:15 | RT.EKG_ITS ---
APPROVED REPORT Exam: Resting ECG Reason for Exam: sob Patient Location: E HR:87 bpm ECG Measurements Heart Rate 87 AXIS OK 130 P 66 QRSd 71 QRS 37 QT 358 T 50 QTc 430 Conclusion Sinus rhythm, rate 87 No interval abnormalities No STEMI Small ST depression V4-V6, unchanged from priors
[2024-09-27] MEDS: Albuterol/Ipratropium 3 ML UPD VIAL UPD ×5 (02:37→17:03)
[2024-09-27] MEDS: Acetaminophen 500 MG TAB 1000 MG PO (02:37)
[2024-09-27] MEDS: predniSONE 20 MG TAB 60 MG PO (02:37)
[2024-09-27 02:55] LABS: Abs Immature Grans 0.02 10^3/uL (0.0-0.06); Absolute Basophil Count 0.02 10^3/uL (0.0-0.2); Absolute Eosinophil Count 0.08 10^3/uL (0.0-0.7); Absolute Lymphocyte Count 0.62 10^3/uL (1.2-3.4); Absolute Monocyte Count 0.55 10^3/uL (0.1-0.8); Absolute Neutrophil Count 4.23 10^3/uL (1.2-6.7); Basophils % 0.4 %; Eosinophils % 1.4 %; HCT 47.3 % (36.0-46.0); HGB 15.1 g/dL (11.2-15.7); Immature Grans % 0.4 %; Lymphocytes % 11.2 %; MCH 28.7 pg (27.0-33.0); MCHC 31.9 % (32.0-36.0); MCV 90 fL (80-95); MPV 11.2 fL (8.0-11.0); Neutrophils % 76.6 %; Platelet Count 160 10^3/uL (130-400); RBC 5.26 10^6/uL (3.93-5.22); RDW 12.8 % (11.7-14.6); RDW-SD 41.8 fL; WBC 5.52 10^3/uL (4.4-10.8)
[2024-09-27 03:19] LABS: ALT 29 U/L (14-59); AST 22 U/L (15-37); Albumin 3.9 g/dL (3.4-5.0); Alkaline Phosphatase 95 U/L (46-116); Anion Gap 2.3 mmol/L (3-11); BUN 11 mg/dL (7-18); Bilirubin, Total 0.51 mg/dL (0.2-1.0); CO2 35.7 mmol/L (21.0-32.0); CREATININE 0.9 mg/dL (0.55-1.02); Calcium 9.2 mg/dL (8.5-10.1); Chloride 102 mmol/L (98-107); Estimated GFR 66.67 (mL/min/1.73m2); Glucose 102 mg/dL (74-106); Magnesium 1.8 mg/dL (1.8-2.4); Potassium 3.9 mmol/L (3.5-5.1); Sodium 140 mmol/L (136-145); Total Protein 7.4 g/dL (6.4-8.2); Troponin I 16 ng/L (<or=51)
[2024-09-27 03:29] LABS: COVID-19 PCR Negative (Negative); Influenza A PCR Positive (Negative); Influenza B PCR Negative (Negative); RSV PCR Negative (Negative)
[2024-09-27 03:37] LABS: Source Nasopharynx
--- NOTE | 2024-09-27 03:46 | W.ED.GENAD ---
Discharge Plan Disposition Patient Disposition: Admit to [facility] Condition: Stable Discharge Details Clinical Impression: Influenza A, Essential hypertension, Hypothyroidism, Lupus (systemic lupus erythematosus), Acute exacerbation of chronic obstructive pulmonary disease (COPD), Acute respiratory failure with hypoxia Primary Care Provider: Loulou Hare ED Provider: Griselda Johnson Home Meds and New Rx's Prescriptions: No Action alendronate 70 mg tablet 70 mg PO QWEEK Qty: 12 4RF nitroglycerin [Nitrostat] 0.4 mg tablet, sublingual 0.4 mg Sublingual Q5 MIN PRN X3 PRN (Reason: Chest Pain) Qty: 30 0RF epinephrine [EpiPen 2-Mikel] 0.3 mg/0.3 mL auto-injector 0.3 mg IM ONCE Qty: 1 3RF Combivent Respimat 20-100 mcg/actuation mist 1 puff Inhalation Q4H PRN (Reason: Exacerbation COPD) Qty: 4 4RF Rx Instructions: dispense 3 inhalers triamcinolone acetonide 0.1 % cream See Rx Instructions .ROUTE .COMPLEX Qty: 30 0RF Dose Instruction: APPLY 1 APPICATION TOPICALLY TWICE A DAY NEEDED FOR RASH Rx Instructions: APPLY 1 APPICATION TOPICALLY TWICE A DAY NEEDED FOR RASH Stiolto Respimat 2.5-2.5 mcg/actuation mist See Rx Instructions .ROUTE .COMPLEX Qty: 4 12RF Dose Instruction: INHALE TWO PUFFS BY MOUTH EVERY DAY Rx Instructions: INHALE TWO PUFFS BY MOUTH EVERY DAY atorvastatin 80 mg tablet 80 mg PO QPM Qty: 90 4RF amlodipine 5 mg tablet 5 mg PO DAILY Qty: 90 3RF citalopram 20 mg tablet 40 mg PO DAILY Qty: 180 4RF furosemide 20 mg tablet 20 mg PO DAILY Qty: 90 3RF Rx Instructions: [facility] gabapentin 300 mg capsule 300 mg PO 1 tab am, 2tabs pm Qty: 270 4RF levothyroxine 50 mcg tablet 50 mcg PO DAILY Qty: 90 4RF potassium chloride 20 mEq tablet,ER particles/crystals 20 meq PO DAILY Qty: 90 3RF lorazepam 0.5 mg tablet 0.5 mg PO BID MDD 2 tablets PRN (Reason: anxiety) Qty: 7 0RF ipratropium-albuterol 0.5 mg-3 mg(2.5 mg base)/3 mL solution for nebulization 3 ml inhalation Q6H PRNQty: 180 0RF (DME) Space Chamber Plus 1 EACH spacer 1 ea Miscellaneous PRN Qty: 1 0RF aspirin 81 MG tablet,delayed release (DR/EC) 81 mg PO DAILY 0RF HPI General Mode of arrival: EMS. Date/Time Provider Initiated Documentation: 09/27/24 02:22. Limitations to Documentation: no limitations. Information obtained by: patient, family, EMS and old records reviewed. HPI Narrative: HPI: This is a 73-year-old female patient with a past medical history significant for COPD, hypertension, hypothyroidism, presenting for evaluation of shortness of breath. The patient reports that for the last 2 to 3 days she has had worsening of her breathing, has noted a cough and a fever. She typically does not wear oxygen, unless she needs 1 L overnight, EMS was summoned given her work of breathing and found her to be hypoxic to the upper 80s requiring 2 L of oxygen by nasal cannula. She received a duo nebulizer treatment and was noted to be febrile, was transported to our facility for further workup and management. The patient reports that she is not experiencing chest pain, has been taking her medications in the home environment as prescribed. Reports no recent sick contacts Exam: Gen: Awake and alert, in no apparent distress HEENT: Non-icteric sclera Neck: Supple Lungs: Mild respiratory distress which worsens with transfer from the stretcher to the bed, with tachypnea and diffuse expiratory wheezing. Room air saturation 88%. CV: Appears well perfused, heart with regular rate and rhythm, strong distal pulses Abdomen: Non-distended, soft, nontender to palpation without rigidity, rebound, or guarding MSK: Moves 4 extremities without apparent limitation in ROM, no peripheral edema, no unilateral calf swelling or tenderness Skin: Visualized skin without rashes, cyanosis. Neuro: Normal Gait, no obvious focal deficits or facial asymmetry. Speaks in full, clear sentences. Psych: Appropriate for situation. MDM: This is a 73-year-old female patient presenting for evaluation of shortness of breath, cough, and fever. Differential includes but is not limited to viral URI, pneumonia, COPD exacerbation, hypoxic respiratory failure. The patient does take his Lasix though has no documented history of CHF, and I did consider CHF exacerbation and pulmonary edema. Considered pneumothorax, pleural effusion. No chest pain to suggest ACS, tolerating oral intake making metabolic and electrolyte derangements less likely. I will provide the patient with a dose of prednisone, a duo nebulizer treatment, and obtain laboratory studies to include CBC, CMP, magnesium, troponin, and Fluvid. Will obtain a chest x-ray. ED Course: I independently interpreted the laboratory studies, which show no significant leukocytosis, anemia, or thrombocytopenia. The chemistry panel is without evidence of electrolyte abnormality, kidney dysfunction, or liver injury. Troponin was negative, Fluvid positive for influenza A. X-ray without focal consolidation concerning for lobar pneumonia. The patient was able to be weaned down to 1 L of oxygen but remains with tachypnea and increased work of breathing, as well as expiratory wheezes for which a second duo nebulizer was provided. Given the patient's history, work of breathing, and increase in her oxygen needs I do feel that she would benefit from admission. I did provide her with a dose of azithromycin for her COPD exacerbation, her first dose of Tamiflu, and sent influenza A subtyping. She does not have any specific risk factors cited to me for chavez influenza. I reached out to our hospitalist who is graciously accepted this patient for admission to their service for ongoing workup and management of her hypoxic respiratory failure in the setting of COPD and influenza A. Transferred from this department to the floor without incident and remained hemodynamically appropriate while under my care. Griselda Johnson MD Related Data Home Medications ?Medication ?Instructions ?Recorded ?Confirmed inhalational spacing device (Space ##1 01/11/18 09/27/24 Chamber Plus) aspirin 81 mg tablet,delayed 81 mg PO DAILY 03/01/18 09/27/24 release nitroglycerin 0.4 mg sublingual 0.4 mg sublingual Q5 MIN PRN X3 08/30/21 09/27/24 tablet (Nitrostat) PRN Chest Pain #30 tabs epinephrine 0.3 mg/0.3 mL 0.3 mg (0.3 mL) IM ONCE #1 ea 12/11/22 09/27/24 injection, auto-injector (EpiPen 2-Mikel) alendronate 70 mg tablet 70 mg PO QWEEK #12 tabs 04/07/23 09/27/24 ipratropium 0.5 mg-albuterol 3 mg 3 ml inhalation Q6H PRN #180 mL 04/22/23 09/27/24 (2.5 mg base)/3 mL nebulization soln ipratropium 20 mcg-albuterol 100 1 puff inhalation Q4H PRN 01/04/24 09/27/24 mcg/actuation mist for inhalation Exacerbation COPD #4 grams (Combivent Respimat) triamcinolone acetonide 0.1 % See Rx Instructions .Route 03/03/24 09/27/24 topical cream .COMPLEX #30 grams tiotropium 2.5 mcg-olodaterol 2.5 See Rx Instructions .Route 05/09/24 09/27/24 mcg/actuation mist for inhalation .COMPLEX #4 grams (Stiolto Respimat) atorvastatin 80 mg tablet 80 mg PO QPM #90 tabs 06/16/24 09/27/24 amlodipine 5 mg tablet 5 mg PO DAILY #90 tabs 08/27/24 09/27/24 citalopram 20 mg tablet 40 mg (2 x 20 mg) PO DAILY #180 08/27/24 09/27/24 tab-caps furosemide 20 mg tablet 20 mg PO DAILY #90 tabs 08/27/24 09/27/24 gabapentin 300 mg capsule 300 mg PO 1 tab am, 2tabs pm #270 08/27/24 09/27/24 tabs levothyroxine 50 mcg tablet 50 mcg PO DAILY #90 tab-caps 08/27/24 09/27/24 potassium chloride 20 mEq 20 meq PO DAILY #90 tabs 08/27/24 09/27/24 tablet,extended release(part/cryst) lorazepam 0.5 mg tablet 0.5 mg PO BID PRN anxiety #7 tabs 08/28/24 09/27/24 Previous Rx's ?Medication ?Instructions ?Recorded inhalational spacing device (Space ##1 01/11/18 Chamber Plus) aspirin 81 mg tablet,delayed 81 mg PO DAILY 03/01/18 release nitroglycerin 0.4 mg sublingual 0.4 mg sublingual Q5 MIN PRN X3 08/30/21 tablet (Nitrostat) PRN Chest Pain #30 tabs epinephrine 0.3 mg/0.3 mL 0.3 mg (0.3 mL) IM ONCE #1 ea 12/11/22 injection, auto-injector (EpiPen 2-Mikel) alendronate 70 mg tablet 70 mg PO QWEEK #12 tabs 04/07/23 ipratropium 0.5 mg-albuterol 3 mg 3 ml inhalation Q6H PRN #180 mL 04/22/23 (2.5 mg base)/3 mL nebulization soln ipratropium 20 mcg-albuterol 100 1 puff inhalation Q4H PRN 01/04/24 mcg/actuation mist for inhalation Exacerbation COPD #4 grams (Combivent Respimat) triamcinolone acetonide 0.1 % See Rx Instructions .Route 03/03/24 topical cream .COMPLEX #30 grams tiotropium 2.5 mcg-olodaterol 2.5 See Rx Instructions .Route 05/09/24 mcg/actuation mist for inhalation .COMPLEX #4 grams (Stiolto Respimat) atorvastatin 80 mg tablet 80 mg PO QPM #90 tabs 06/16/24 amlodipine 5 mg tablet 5 mg PO DAILY #90 tabs 08/27/24 citalopram 20 mg tablet 40 mg (2 x 20 mg) PO DAILY #180 08/27/24 tab-caps furosemide 20 mg tablet 20 mg PO DAILY #90 tabs 08/27/24 gabapentin 300 mg capsule 300 mg PO 1 tab am, 2tabs pm #270 08/27/24 tabs levothyroxine 50 mcg tablet 50 mcg PO DAILY #90 tab-caps 08/27/24 potassium chloride 20 mEq 20 meq PO DAILY #90 tabs 08/27/24 tablet,extended release(part/cryst) lorazepam 0.5 mg tablet 0.5 mg PO BID PRN anxiety #7 tabs 08/28/24 Allergies Allergy/AdvReac Type Severity Reaction Status Date / Time bee venom protein (honey bee) Allergy Severe Anaphylaxsi Verified 09/22/24 11:37 s tetanus toxoid, adsorbed Allergy Severe swelling,fe Verified 09/22/24 11:37 geneva benzonatate (From Tessalon Allergy Mild rash Verified 09/22/24 11:37 Erlin) sulfamethoxazole Allergy Itching Verified 09/22/24 11:37 amoxicillin trihydrate (From AdvReac Intermediate Diarrhea - Verified 09/22/24 11:37 Augmentin) Severe potassium clavulanate (From AdvReac Intermediate Diarrhea - Verified 09/22/24 11:37 Augmentin) Severe insects Allergy Severe Anaphylaxsi Uncoded 09/22/24 11:37 s General Stated Complaint: RespSymp HOLLIS: 3 Course Vital Signs Vital signs: Vital Signs Temperature 39.2 C H 09/27/24 02:30 Pulse 89 09/27/24 02:30 Respiratory Rate 31 H 09/27/24 02:30 Blood Pressure 183/65 H 09/27/24 02:30 Pulse Oximetry 88 L 09/27/24 02:30 Temperature 39.2 C H 09/27/24 02:33 Temperature Source Temporal Artery Scan 09/27/24 02:33 Pulse 87 09/27/24 02:33 Respiratory Rate 24 09/27/24 02:33 Respiratory Effort Short of Breath, Labored 09/27/24 02:33 Respiratory Depth Normal 09/27/24 02:33 Blood Pressure 183/65 H 09/27/24 02:33 Blood Pressure Position Sitting 09/27/24 02:33 Pulse Oximetry 96 09/27/24 02:33 Oxygen Delivery Method Nasal Cannula 09/27/24 02:33 Oxygen Flow Rate 2 09/27/24 02:33 Pain Level 0 09/27/24 02:33 Lab/Test Results Lab/Test Results: Laboratory Tests Range/Units 09/27/24 02:46 WBC (4.4-10.8) 10^3/uL 5.52 RBC (3.93-5.22) 10^6/uL 5.26 H Hgb (11.2-15.7) g/dL 15.1 Hct (36.0-46.0) % 47.3 H MCV (80-95) fL 90 MCH (27.0-33.0) pg 28.7 MCHC (32.0-36.0) % 31.9 L RDW (11.7-14.6) % 12.8 Plt Count (130-400) 10^3/uL 160 MPV (8.0-11.0) fL 11.2 H Immature Gran % % 0.4 Neutrophils % % 76.6 Lymphocytes % % 11.2 Monocytes % % 10.0 Eosinophils % % 1.4 Basophils % % 0.4 Nucleated RBC % (0.0-0.3) % 0.0 Absolute Neutrophils (1.2-6.7) 10^3/uL 4.23 Absolute Lymphocytes (1.2-3.4) 10^3/uL 0.62 L Absolute Monocytes (0.1-0.8) 10^3/uL 0.55 Absolute Eosinophils (0.0-0.7) 10^3/uL 0.08 Absolute Basophils (0.0-0.2) 10^3/uL 0.02 Sodium (136-145) mmol/L 140 Potassium (3.5-5.1) mmol/L 3.9 Chloride (98-107) mmol/L 102 Carbon Dioxide (21.0-32.0) mmol/L 35.7 H Anion Gap (3-11) mmol/L 2.3 L BUN (7-18) mg/dL 11 Creatinine (0.55-1.02) mg/dL 0.9 Est GFR (CKD-EPI 2020) (mL/min/1.73m2) 66.67 Glucose (74-106) mg/dL 102 Calcium (8.5-10.1) mg/dL 9.2 Magnesium (1.8-2.4) mg/dL 1.8 Total Bilirubin (0.2-1.0) mg/dL 0.51 AST (15-37) U/L 22 ALT (14-59) U/L 29 Alkaline Phosphatase (46-116) U/L 95 Troponin I (<or=51) ng/L 16 Total Protein (6.4-8.2) g/dL 7.4 Albumin (3.4-5.0) g/dL 3.9 COVID-19 Source Nasopharynx SARS-CoV-2 (PCR) (Negative) Negative Influenza Type A (PCR) (Negative) Positive A Influenza Type B (PCR) (Negative) Negative RSV (PCR) (Negative) Negative Medical Decision Making Quality:SDOH Health Related Social Needs: No Data to Display PFSH All Active Problems Influenza A (Acute) Chronic hypoxic respiratory failure (Acute) Acute respiratory failure with hypoxia (Acute) Acute exacerbation of chronic obstructive pulmonary disease (COPD) (Acute) COPD (chronic obstructive pulmonary disease) (Chronic) Essential hypertension (Chronic 09/03/14) Hypothyroidism (Chronic 09/03/14) Lupus (systemic lupus erythematosus) (Chronic 09/03/14) rheum [facility] [place] previously- stable on meds 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 seen at [facility] [place] - has been stable on meds Anxiety (Chronic 09/03/14) Right carotid bruit (Acute) Osteoarthritis (Chronic) Osteoporosis (Chronic) ; left arm, started fosamax Shoulder pain, right (Acute) COVID-19 (Acute) Medical History Pharyngoesophageal dysphagia Normal larygoscopy 07/2020 CAD (coronary artery disease), [place] coronary artery sees cardiology at [facility] [place] yearly Hymenoptera allergy (12/04/14) NSTEMI (non-ST elevated myocardial infarction) Surgical History History of ankle surgery Family History Mother Asthma Father Diabetes Grandfather No problems noted. Grandfather No problems noted. Grandmother No problems noted. Grandmother No problems noted. Social History Smoking/Tobacco Use Status: Former Tobacco Use Tobacco: How many years used: 30 Second Hand Exposure: Yes Smoking risk assessment performed?: Yes Alcohol Intake: never Drug use: Never Substance use type: does not use Household members: children and other Details: 4 WITH 3 SONS Housing: house Duration: 15-30 minutes/day Frequency: 1-2 times per week Seatbelt use: always Do you feel safe at home: Yes Do you feel safe in your relationship?: Yes
[2024-09-27] MEDS: Oseltamivir 75 MG CAP PO (04:00)
[2024-09-27] MEDS: AZITHROMYCIN 500 MG in Normal Saline 250 ML 250 MG IVPB (04:00)
[2024-09-27 04:04] LABS: Troponin I 19 ng/L (<or=51)
--- NOTE | 2024-09-27 04:08 | HPE_ITS ---
Date of service: 09/27/24 Time of Service: 04:08 Assessment and Plan Assessment and plan (1) Influenza A: Start date: 09/27/24 Status: Acute Assessment and plan: This is a 73-year-old lady with recent onset of fever and dyspnea with exertion as exacerbation of her chronic COPD with intermittent use of oxygen at home at 1 to 2 L/min per nasal cannula mostly at night. She presented to the ED and tested positive for flu with x-ray revealing no infiltrates but is initiated on treatment for possible bronchitis. She did not meet sepsis criteria. She was initiated on Tamiflu. She will continue O2 at 2 L/min per nasal cannula adjusting as needed as she recovers with aggressive treatment of her COPD exacerbation. She did appear to have fairly severe COPD with some chronic hypoxic and hypercapnic respiratory failure which appears slightly exacerbated. She is a full code. (2) Acute exacerbation of chronic obstructive pulmonary disease (COPD): Start date: 09/27/24 Status: Acute Assessment and plan: Chronic hypoxic and hypercapnic respiratory failure which appears slightly exacerbated with acute influenza infection. Doxycycline 100 g twice daily possible bronchitis with no infiltrate seen on chest x-ray and patient not meeting sepsis criteria for more aggressive antibiotic therapy. (3) Chronic hypoxic respiratory failure: Status: Chronic Assessment and plan: Patient is usually on O2 supplementation at low rates only at night. This can be adjusted with her acute respiratory infection with flu and if her needs to remain low she could be discharged on continuous oxygen temporarily. (4) Essential hypertension: Status: Chronic Assessment and plan: Continue outpatient medical therapy. (5) Hypothyroidism: Status: Chronic Assessment and plan: TSH is normal with continued outpatient dosing of supplement. (6) Lupus (systemic lupus erythematosus): Status: Chronic Assessment and plan: Patient not actively on any medical therapy though this problem could immunocompromised patient. History of Present Illness History of Present Illness Chief Complaint: Dyspnea upon exertion, fever N arrative: This is a 73-year-old female patient with a history of COPD with home O2 at 1 to 2 L/min per nasal cannula as needed at night who presents with increasing dyspnea upon exertion, fever for 2 to 3 days and increased oxygen needs who tested positive for influenza A. She did note that when she visited an outpatient clinic before onset of symptoms, everyone was wearing a mask and she is concerned she caught the flu in that environment. She does not meet sepsis criteria. She continued to require higher than usual oxygen supplementation in the ED and her tachypnea was persisting despite several DuoNeb treatments. Her COPD is significant and she does appear to have chronic mild respiratory failure with evaded bicarb. VBG also revealed slightly elevated pCO2. She has no elevated WBC, no tachycardia and mild increase in respiratory rate with exertion. She was initiated on Tamiflu and Zithromax and will be admitted for worsening respiratory status with influenza A and though no obvious infiltrates were seen on chest x-ray as read by the ED provider. Renetta interpretation was COPD but no acute infiltrate. She was initiated on Solu-Medrol and Zithromax was changed to doxycycline because of conflicts with her antidepressants. She is not hypotensive. She is a full code. Review of Systems Narrative: 13 point review of systems otherwise unrevealing or stable. She does have occasional pedal edema for which she takes Lasix. She did have a heart attack when she took increased dosing of CBD several years ago but has no history of CHF, only pedal edema for which she takes Lasix. 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 seen at [facility] [place] - has been stable on meds Anxiety (Chronic 09/03/14) Right carotid bruit (Acute) Osteoarthritis (Chronic) Osteoporosis (Chronic) ; left arm, started fosamax Shoulder pain, right (Acute) COVID-19 (Acute) Medical History Pharyngoesophageal dysphagia Normal larygoscopy 07/2020 CAD (coronary artery disease), [place] coronary artery sees cardiology at [facility] [place] yearly Hymenoptera allergy (12/04/14) NSTEMI (non-ST elevated myocardial infarction) Surgical History History of ankle surgery Family History Mother Asthma Father Diabetes Grandfather No problems noted. Grandfather No problems noted. Grandmother No problems noted. Grandmother No problems noted. Social History Smoking/Tobacco Use Status: Former Tobacco Use Tobacco: How many years used: 30 Second Hand Exposure: Yes Smoking risk assessment performed?: Yes Alcohol Intake: never Drug use: Never Substance use type: does not use Household members: children and other Details: 4 WITH 3 SONS Housing: house Duration: 15-30 minutes/day Frequency: 1-2 times per week Seatbelt use: always Do you feel safe at home: Yes Do you feel safe in your relationship?: Yes Meds Allergies and Home Medications Allergies Allergy/AdvReac Type Severity Reaction Status Date / Time bee venom protein (honey bee) Allergy Severe Anaphylaxsi Verified 09/22/24 11:37 s tetanus toxoid, adsorbed Allergy Severe swelling,fe Verified 09/22/24 11:37 [place]eva benzonatate (From Tessalon Allergy Mild rash Verified 09/22/24 11:37 Perles) sulfamethoxazole Allergy Itching Verified 09/22/24 11:37 amoxicillin trihydrate (From AdvReac Intermediate Diarrhea - Verified 09/22/24 11:37 Augmentin) Severe potassium clavulanate (From AdvReac Intermediate Diarrhea - Verified 09/22/24 11:37 Augmentin) Severe insects Allergy Severe Anaphylaxsi Uncoded 09/22/24 11:37 s Home Medications ?Medication ?Instructions ?Recorded ?Confirmed ?Type inhalational spacing device (Space ##1 01/11/18 09/27/24 Rx Chamber Plus) aspirin 81 mg tablet,delayed 81 mg PO DAILY 03/01/18 09/27/24 Rx release nitroglycerin 0.4 mg sublingual 0.4 mg sublingual Q5 MIN PRN X3 08/30/21 09/27/24 Rx tablet (Nitrostat) PRN Chest Pain #30 tabs epinephrine 0.3 mg/0.3 mL 0.3 mg (0.3 mL) IM ONCE #1 ea 12/11/22 09/27/24 Rx injection, auto-injector (EpiPen 2-Mikel) alendronate 70 mg tablet 70 mg PO QWEEK #12 tabs 04/07/23 09/27/24 Rx ipratropium 0.5 mg-albuterol 3 mg 3 ml inhalation Q6H PRN #180 mL 04/22/23 09/27/24 Rx (2.5 mg base)/3 mL nebulization soln ipratropium 20 mcg-albuterol 100 1 puff inhalation Q4H PRN 01/04/24 09/27/24 Rx mcg/actuation mist for inhalation Exacerbation COPD #4 grams (Combivent Respimat) triamcinolone acetonide 0.1 % See Rx Instructions .Route 03/03/24 09/27/24 Rx topical cream .COMPLEX #30 grams tiotropium 2.5 mcg-olodaterol 2.5 See Rx Instructions .Route 05/09/24 09/27/24 Rx mcg/actuation mist for inhalation .COMPLEX #4 grams (Stiolto Respimat) atorvastatin 80 mg tablet 80 mg PO QPM #90 tabs 06/16/24 09/27/24 Rx amlodipine 5 mg tablet 5 mg PO DAILY #90 tabs 08/27/24 09/27/24 Rx citalopram 20 mg tablet 40 mg (2 x 20 mg) PO DAILY #180 08/27/24 09/27/24 Rx tab-caps furosemide 20 mg tablet 20 mg PO DAILY #90 tabs 08/27/24 09/27/24 Rx gabapentin 300 mg capsule 300 mg PO 1 tab am, 2tabs pm #270 08/27/24 09/27/24 Rx tabs levothyroxine 50 mcg tablet 50 mcg PO DAILY #90 tab-caps 08/27/24 09/27/24 Rx potassium chloride 20 mEq 20 meq PO DAILY #90 tabs 08/27/24 09/27/24 Rx tablet,extended release(part/cryst) lorazepam 0.5 mg tablet 0.5 mg PO BID PRN anxiety #7 tabs 08/28/24 09/27/24 Rx Exam Narrative Exam Narrative: General: Patient appears appropriate for age, moderately obese, alert and oriented x 3 and in no acute distress. She speaks in shorter sentences because of her shortness of breath. There is no pursed lip breathing. HEENT: Normocephalic, eyes with pupils equal and reactive to light symmetrically, extraocular movement intact and sclera anicteric. Oropharynx with dry mucosa. Neck: Supple without JVD. Back: Stooped posture without CVA tenderness. Lungs: Poor aeration diffusely with bronchovesicular breath sounds and slight increased expiratory phase with scant expiratory wheeze diffusely. No focalizing rales or rhonchi. Breast: Exam deferred. Heart: Regular rate and rhythm with no murmurs or gallops appreciated. Abdomen: Obese contour, soft and nontender to palpation without palpable hepatosplenomegaly. Bowel sounds positive all quadrants. Genitalia/rectal: Exam deferred. Extremities: Without clubbing, cyanosis or grossly pitting edema. Fair capillary refill. Skin: Actinic changes over sun exposed areas with dark tanning, otherwise normal color, warm and dry. Neuro: Cranial nerves II through XII grossly intact, no focalized motor deficits and no tremor. Psych: Slightly pressured speech, not anxious or depressed. No abnormal thought processes. Remote and recent memory grossly intact. Results Imaging Imaging Studies: Exam: XR Chest Exam date and time: 09/27/2024 3:26 AM Age: 73 years old Clinical indication: Cough and fever; Cough, copd exac, fever TECHNIQUE: Imaging protocol: Radiologic exam of the chest. Views: 2 views. COMPARISON: CR XR PORTABLE CHEST AP 12/21/2023 9:15 PM FINDINGS: Lungs: Lungs may be hyperinflated which can be seen with COPD. No focal airspace opacity or evidence of pulmonary edema. Pleural spaces: No pneumothorax or pleural effusion. Heart/Mediastinum: Unremarkable. No cardiomegaly. Bones/joints: Accentuated thoracic kyphosis. IMPRESSION: Lungs may be hyperinflated which can be seen with COPD. No focal airspace opacity or evidence of pulmonary edema Labs 09/27/24 02:46 09/27/24 02:46 Labs: Laboratory Results - last 24 hr 09/27/24 02:46 WBC 5.52 RBC 5.26 H Hgb 15.1 Hct 47.3 H MCV 90 MCH 28.7 MCHC 31.9 L RDW 12.8 Plt Count 160 MPV 11.2 H Immature Gran % 0.4 Neutrophils % 76.6 Lymphocytes % 11.2 Monocytes % 10.0 Eosinophils % 1.4 Basophils % 0.4 Nucleated RBC % 0.0 Absolute Neutrophils 4.23 Absolute Lymphocytes 0.62 L Absolute Monocytes 0.55 Absolute Eosinophils 0.08 Absolute Basophils 0.02 Sodium 140 Potassium 3.9 Chloride 102 Carbon Dioxide 35.7 H Anion Gap 2.3 L BUN 11 Creatinine 0.9 Est GFR (CKD-EPI 2020) 66.67 Glucose 102 Calcium 9.2 Magnesium 1.8 Total Bilirubin 0.51 AST 22 ALT 29 Alkaline Phosphatase 95 Troponin I 16 Total Protein 7.4 Albumin 3.9 COVID-19 Source Nasopharynx SARS-CoV-2 (PCR) Negative Influenza Type A (PCR) Positive A Influenza Type B (PCR) Negative RSV (PCR) Negative Last Vital Signs Temp 39.2 C H 09/27/24 02:33 Pulse 87 09/27/24 02:33 Resp 24 09/27/24 02:33 BP 183/65 H 09/27/24 02:33 Pulse Ox 96 09/27/24 02:33 Time Spent Time spent with Patient: >75 minutes Time was spent: preparing to see the patient(eg.review tests), obtaining and/or reviewing separately otained hiistory, ordering medications,tests, procedures, indepentently interpreting results and counseling the patient
--- NOTE | 2024-09-27 04:26 | DI.VRAD_ITS ---
PROCEDURE INFORMATION: Exam: XR Chest Exam date and time: 09/27/2024 3:26 AM Age: 73 years old Clinical indication: Cough and fever; Cough, copd exac, fever TECHNIQUE: Imaging protocol: Radiologic exam of the chest. Views: 2 views. COMPARISON: CR XR PORTABLE CHEST AP 12/21/2023 9:15 PM FINDINGS: Lungs: Lungs may be hyperinflated which can be seen with COPD. No focal airspace opacity or evidence of pulmonary edema. Pleural spaces: No pneumothorax or pleural effusion. Heart/Mediastinum: Unremarkable. No cardiomegaly. Bones/joints: Accentuated thoracic kyphosis. IMPRESSION: Lungs may be hyperinflated which can be seen with COPD. No focal airspace opacity or evidence of pulmonary edema. Dictated and Authenticated by: Sid Costello MD. Orderin St. Jamal Villalobos MD
[2024-09-27 04:39] LABS: NT-proBNP 202 pg/mL (<300)
[2024-09-27] MEDS: methylPREDNISolone SUCC 40 MG VIAL IVP (05:10)
--- NOTE | 2024-09-27 05:12 | W.PC.ACHO ---
Registration Status: Primary Language: Preferred Language: ED Information & Data Chief Complaint RespSymp 09/27/24 03:46 Triage Note BIBEMS d/t x2 days of 09/27/24 02:30 increasing SOB& coughing w/ fever and fatigue Medical / Surgical History (Last Reviewed 09/27/24 @ 04:11 by Dionte Lawrence) Pharyngoesophageal dysphagia CAD (coronary artery disease), [place] coronary artery Hymenoptera allergy (12/04/14) NSTEMI (non-ST elevated myocardial infarction) (Last Reviewed 09/27/24 @ 04:11 by Dionte Lawrence) History of ankle surgery Most Recent Vital Signs Temperature 37.7 C H 09/27/24 04:25 Temperature Source Temporal Artery Scan 09/27/24 04:25 Pulse 82 09/27/24 04:25 Respiratory Rate 16 09/27/24 04:25 Respiratory Effort Short of Breath, Labored 09/27/24 02:33 Respiratory Depth Normal 09/27/24 02:33 Blood Pressure 183/65 H 09/27/24 02:33 Blood Pressure Position Sitting 09/27/24 02:33 Pulse Oximetry 94 09/27/24 04:25 Oxygen Delivery Method Nasal Cannula 09/27/24 02:33 Oxygen Flow Rate 2 09/27/24 02:33 Pain Level 0 09/27/24 02:33 Allergies bee venom protein (honey bee) Allergy (Severe, Verified 09/22/24 11:37) Anaphylaxsis tetanus toxoid, adsorbed Allergy (Severe, Verified 09/22/24 11:37) swelling,fever benzonatate (From Tessalon Perles) Allergy (Mild, Verified 09/22/24 11:37) rash ? if rash was caused by this sulfamethoxazole Allergy (Verified 09/22/24 11:37) Itching amoxicillin trihydrate (From Augmentin) Adverse Reaction (Intermediate, Verified 09/22/24 11:37) Diarrhea - Severe potassium clavulanate (From Augmentin) Adverse Reaction (Intermediate, Verified 09/22/24 11:37) Diarrhea - Severe insects Allergy (Severe, Uncoded 09/22/24 11:37) Anaphylaxsis Precautions Isolation PUI 09/27/24 02:33 IV IV Catheter Type [Left Saline Lock Antecubital] IV Catheter Gauge [Left 18 Antecubital] Diagnostics 0209/27/24 09/27/24 Range/Units 05:22 04:24 03:45 WBC (4.4-10.8) 10^3/uL RBC (3.93-5.22) 10^6/uL Hgb (11.2-15.7) g/dL Hct (36.0-46.0) % MCV (80-95) fL MCH (27.0-33.0) pg MCHC (32.0-36.0) % RDW (11.7-14.6) % Plt Count (130-400) 10^3/uL MPV (8.0-11.0) fL Immature Gran % % Neutrophils % % Lymphocytes % % Monocytes % % Eosinophils % % Basophils % % Nucleated RBC % (0.0-0.3) % Absolute Neutrophils (1.2-6.7) 10^3/uL Absolute Lymphocytes (1.2-3.4) 10^3/uL Absolute Monocytes (0.1-0.8) 10^3/uL Absolute Eosinophils (0.0-0.7) 10^3/uL Absolute Basophils (0.0-0.2) 10^3/uL VBG pH Pending VBG pCO2 Pending VBG pO2 Pending VBG HCO3 Pending VBG Total CO2 Pending VBG O2 Saturation Pending VBG Base Excess Pending Sodium (136-145) mmol/L Potassium (3.5-5.1) mmol/L Chloride (98-107) mmol/L Carbon Dioxide (21.0-32.0) mmol/L Anion Gap (3-11) mmol/L BUN (7-18) mg/dL Creatinine (0.55-1.02) mg/dL Est GFR (CKD-EPI 2020) (mL/min/1.73m2) Glucose (74-106) mg/dL Calcium (8.5-10.1) mg/dL Magnesium (1.8-2.4) mg/dL Total Bilirubin (0.2-1.0) mg/dL AST (15-37) U/L ALT (14-59) U/L Alkaline Phosphatase (46-116) U/L Troponin I Pending (<or=51) ng/L NT-Pro-B Natriuret Pep (<300) pg/mL Total Protein (6.4-8.2) g/dL Albumin (3.4-5.0) g/dL COVID-19 Source SARS-CoV-2 (PCR) (Negative) Influ A Subtyping (PCR) Pending Influenza Type A (PCR) (Negative) Influenza Type B (PCR) (Negative) RSV (PCR) (Negative) Add-On Test Request 09/27/24 09/27/24 Range/Units 03:36 02:46 WBC 5.52 (4.4-10.8) 10^3/uL RBC 5.26 H (3.93-5.22) 10^6/uL Hgb 15.1 (11.2-15.7) g/dL Hct 47.3 H (36.0-46.0) % MCV 90 (80-95) fL MCH 28.7 (27.0-33.0) pg MCHC 31.9 L (32.0-36.0) % RDW 12.8 (11.7-14.6) % Plt Count 160 (130-400) 10^3/uL MPV 11.2 H (8.0-11.0) fL Immature Gran % 0.4 % Neutrophils % 76.6 % Lymphocytes % 11.2 % Monocytes % 10.0 % Eosinophils % 1.4 % Basophils % 0.4 % Nucleated RBC % 0.0 (0.0-0.3) % Absolute Neutrophils 4.23 (1.2-6.7) 10^3/uL Absolute Lymphocytes 0.62 L (1.2-3.4) 10^3/uL Absolute Monocytes 0.55 (0.1-0.8) 10^3/uL Absolute Eosinophils 0.08 (0.0-0.7) 10^3/uL Absolute Basophils 0.02 (0.0-0.2) 10^3/uL VBG pH VBG pCO2 VBG pO2 VBG HCO3 VBG Total CO2 VBG O2 Saturation VBG Base Excess Sodium 140 (136-145) mmol/L Potassium 3.9 (3.5-5.1) mmol/L Chloride 102 (98-107) mmol/L Carbon Dioxide 35.7 H (21.0-32.0) mmol/L Anion Gap 2.3 L (3-11) mmol/L BUN 11 (7-18) mg/dL Creatinine 0.9 (0.55-1.02) mg/dL Est GFR (CKD-EPI 2020) 66.67 (mL/min/1.73m2) Glucose 102 (74-106) mg/dL Calcium 9.2 (8.5-10.1) mg/dL Magnesium 1.8 (1.8-2.4) mg/dL Total Bilirubin 0.51 (0.2-1.0) mg/dL AST 22 (15-37) U/L ALT 29 (14-59) U/L Alkaline Phosphatase 95 (46-116) U/L Troponin I 19 16 (<or=51) ng/L NT-Pro-B Natriuret Pep 202 (<300) pg/mL Total Protein 7.4 (6.4-8.2) g/dL Albumin 3.9 (3.4-5.0) g/dL COVID-19 Source Nasopharynx SARS-CoV-2 (PCR) Negative (Negative) Influ A Subtyping (PCR) Influenza Type A (PCR) Positive A (Negative) Influenza Type B (PCR) Negative (Negative) RSV (PCR) Negative (Negative) Add-On Test Request Pending Intake and Output - 24 Hour Total 09/27/24 01:58 thru 09/27/24 02:30 Weight 86.183 kg Falls Risk Assessment History of Falls No History 09/27/24 02:33 Contributing Factors No Factors 09/27/24 02:33 Ambulatory Aids Independent 09/27/24 02:33 Tubes/Lines None 09/27/24 02:33 Gait Evaluation No gait disturbance 09/27/24 02:33 Cognition No cognitive impairment 09/27/24 02:33 Fall Total Score 0 09/27/24 02:33 Level of Risk Standard/Low Risk 09/27/24 02:33 Problems (Last Reviewed 09/27/24 @ 04:11 by Dionte Lawrence) Influenza A (Acute) Chronic hypoxic respiratory failure (Acute) Acute exacerbation of chronic obstructive pulmonary disease (COPD) (Acute) Essential hypertension (Chronic 09/03/14) Hypothyroidism (Chronic 09/03/14) Lupus (systemic lupus erythematosus) (Chronic 09/03/14) v v v v v v v v v Sending and/or Receiving Nurses: Please use comment section below to note any information pertinent to the patient hand-off not included above. Information / Comments: No further question. Report received from: Jeny Bustos RN
[2024-09-27 05:20] LABS: BE (Venous) 5 mmol/L (-2-3); HCO3 (Venous) 31 mmol/L (23-28); O2 Sat (Venous) 80 %; TCO2 (Venous) 28 mmol/L (24-29); pCO2 (Venous) 55 mmHg (41-51); pH (Venous) 7.36 (7.31-7.41); pO2 (Venous) 46 mmHg
[2024-09-27 05:23] LABS: Lab Add On Test DONE
[2024-09-27 05:40] LABS: Troponin I 21 ng/L (<or=51)
--- NOTE | 2024-09-27 05:57 | RESPIRATORY ---
Pt. stated she uses O2 1l/min at baseline at night time only. Pt is unsure of DME.
[2024-09-27] MEDS: Levothyroxine 50 MCG TAB PO (06:05)
[2024-09-27] MEDS: Potassium Chloride 20 MEQ TABCR PO (08:20)
[2024-09-27] MEDS: Doxycycline Hyclate 100 MG CAP PO ×2 (08:20→20:08)
[2024-09-27] MEDS: predniSONE 20 MG TAB 40 MG PO (08:20)
[2024-09-27] MEDS: Normal Saline Flush 10 ML SYR IVP ×2 (08:20→20:12)
[2024-09-27] MEDS: Enoxaparin 40 MG/0.4 ML SYR SC (08:20)
[2024-09-27] MEDS: Citalopram 20 MG TAB 40 MG PO (08:20)
[2024-09-27] MEDS: Gabapentin 300 MG CAP PO (08:21)
[2024-09-27] MEDS: amLODIPine 5 MG TAB PO (08:21)
[2024-09-27] MEDS: Aspirin E.C. 81 MG TABEC PO (08:21)
[2024-09-27] MEDS: Furosemide 20 MG TAB PO (08:21)
[2024-09-27 08:22] LABS: HCT 41.1 % (36.0-46.0); HGB 13.4 g/dL (11.2-15.7); MCH 29.5 pg (27.0-33.0); MCHC 32.6 % (32.0-36.0); MCV 90 fL (80-95); MPV 11.6 fL (8.0-11.0); Platelet Count 149 10^3/uL (130-400); RBC 4.55 10^6/uL (3.93-5.22); RDW 12.9 % (11.7-14.6); RDW-SD 42.1 fL; WBC 5.12 10^3/uL (4.4-10.8)
[2024-09-27 08:35] LABS: ALT 22 U/L (14-59); AST 26 U/L (15-37); Albumin 3.4 g/dL (3.4-5.0); Alkaline Phosphatase 82 U/L (46-116); Anion Gap 5.9 mmol/L (3-11); BUN 11 mg/dL (7-18); Bilirubin, Total 0.49 mg/dL (0.2-1.0); CO2 31.1 mmol/L (21.0-32.0); CREATININE 1.2 mg/dL (0.55-1.02); Chloride 101 mmol/L (98-107); Estimated GFR 47.21 (mL/min/1.73m2); Glucose 189 mg/dL (74-106); Magnesium 1.8 mg/dL (1.8-2.4); Potassium 3.7 mmol/L (3.5-5.1); Sodium 138 mmol/L (136-145); TSH (W/Ref FT4) 0.25 uIU/mL (0.36-3.74); Total Protein 6.6 g/dL (6.4-8.2)
[2024-09-27 08:40] LABS: Bilirubin Negative (Negative); Blood Trace-intact (Negative); Clarity Clear (Clear); Glucose Negative (Negative); Ketones Negative (Negative); Leukocyte Esterase Negative (Negative); Nitrite Negative (Negative); Urobilinogen 0.2 mg/dL (Up to 0.2); pH 5.5 (5-8)
[2024-09-27 08:52] LABS: Bacteria Few HPF (Negative); C & S Indicated? No; Casts Negative LPF (Negative); Crystals Negative HPF (Negative); Epithelial Cells Negative HPF (Negative); Mucus Negative (Negative); Other Cells Negative (Negative); RBC 0-2 HPF (0-2); WBC Negative HPF (0-5)
[2024-09-27 09:07] LABS: FREE T4 1.45 ng/dL (0.76-1.46)
--- NOTE | 2024-09-27 10:08 | INITIAL_ITS ---
Date of service: 09/27/24 Time of Service: 10:08 Care Management Initial Assmt Initial Assessment Reason for Hospitalization: Influenza A Functional Status/Living Situation Patient Presentation: Thanh was sitting up on the side of the bed when CM met with her. She was open and friendly and easily engaged with CM. Thanh was admitted with Influenza and a COPD exacerbation. At home she uses 1-2 L/min of nasal O2 at night and she has been using 1L/min most of the day and has been maintaining her oxygen saturation in the mid to upper 90s. Her blood pressure was a bit high on admission but is wnl today. Thanh had a fever during the night up to 39.2 C but has been afebrile since about 5 am. Thanh lives in a single family home in [place] with her 3 sons. She also has 2 daughters who live in [facility] where she is from. 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 She is independent at baseline and does not receive any services. She informed that her sons take good care of her and help her with whatever she needs. Town of Residence: [place] Resides with: Child (3 sons live with her) Significant Other/Family: Out of area (2 daughters in [facility]) Employment Status: Retired Instrumental Activities of Daily Living (ADLs): Independent Medications Medication Management: No Issues/Barriers identified Advance Directives Advance Directives: Do you have an Advance Directive: N 11/08/23 12:43 AD On File at [facility]: N 11/08/23 12:43 Date Asked 05/02/24 05/02/24 13:55 AD Date Reviewed COLST On File at [facility] No 12/21/23 20:09 COLST Date Scanned Code Status Resuscitation Status Full Code Insurance Coverage/Financial Issues Insurance: [employer] Medicare Replacement Care Team Visit Care Team Role Provider Type Conor Paul MD MD [facility] STAFF PHYSICIAN Loulou Hare, AUDELIA Primary Care Provider NURSE PRACTITIONER Griselda Johnson MD Emergency Provider [facility] STAFF PHYSICIAN Dionte Lawrence Admit Provider NON-[facility] STAFF PHYSICIAN Attending Provider Discharge Potential Discharge Needs: PCP F/U Appt Anticipated Barriers to Discharge: None Identified Patient/Family Education Needs: Review discharge instructions, discuss Ask Me Three Transportation: Private vehicle Plan: Anticipate Thanh will be discharged home with no new services. She will follow up with her community providers and plan of care and transport with family. CM will follow. Social Determinants of Health Screening Social Determinants of Health last assessed: 09/27/24 Will the Patient Participate in the Screening?: Declined to provide Do you worry about having a steady place to live?: no Problems where you live: no known problems In the past 12 months, have you had to go without electric, gas, oil or water in your home?: no Have you or anyone in your house had to go without enough food to eat?: no Has lack of transportation kept you from medical appointments or from doing things needed for daily living?: no Has anyone in your life made you feel unsafe or unsupported?: no How hard is it for you to pay for the very basics like food, housing, medical care, and heating? Would you say it is:: Not hard at all Do you want help finding or keeping work or a job?: I do not need or want help If for any reason you need help with day-to-day activities such as bathing, preparing meals, shopping, managing finances, etc., do you get the help you need?: I don?t need any help How often do you feel lonely or isolated from those around you?: Never Do you speak a language other than Romanian at home?: No Does the patient want assistance with any of the above?: No Social Determinants of Health Comments(SDOH Details): Patient reports no issues at home. 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 seen at [facility] - has been stable on meds Anxiety (Chronic 09/03/14) Right carotid bruit (Acute) Osteoarthritis (Chronic) Osteoporosis (Chronic) ; left arm, started fosamax Shoulder pain, right (Acute) COVID-19 (Acute) Medical History Pharyngoesophageal dysphagia Normal larygoscopy 07/2020 CAD (coronary artery disease), [place] coronary artery sees cardiology at [facility] yearly Hymenoptera allergy (12/04/14) NSTEMI (non-ST elevated myocardial infarction) Surgical History History of ankle surgery Family History Mother Asthma Father Diabetes Grandfather No problems noted. Grandfather No problems noted. Grandmother No problems noted. Grandmother No problems noted. Social History Smoking/Tobacco Use Status: Former Tobacco Use Tobacco: How many years used: 30 Second Hand Exposure: Yes Smoking risk assessment performed?: Yes Alcohol Intake: never Drug use: Never Substance use type: does not use Household members: children and other Details: 4 WITH 3 SONS Housing: house Duration: 15-30 minutes/day Frequency: 1-2 times per week Seatbelt use: always Do you feel safe at home: Yes Do you feel safe in your relationship?: Yes
[2024-09-27] MEDS: Gabapentin 300 MG CAP 600 MG PO (20:00)
[2024-09-27] MEDS: Atorvastatin 40 MG TAB 80 MG PO (20:08)
[2024-09-27] MEDS: Oseltamivir 30 MG CAP PO (20:11)
--- NOTE | 2024-09-27 23:00 | RT.EKG_ITS ---
APPROVED REPORT Exam: Resting ECG Reason for Exam: afib? Patient Location: I HR:122 bpm ECG Measurements Heart Rate 122 AXIS DC 48 P 0 QRSd 82 QRS 43 QT 339 T -54 QTc 483 Conclusion Sinus tachycardia...rate> 99 Ventricular premature complex...V complex w/ short R-R interval Consider right atrial enlargement...P >0.24mV limb lead Repol abnrm, prob ischemia, anterolateral lds...ST dep, T neg, I aVL V2-V6 Minimal ST elevation, lateral leads...ST >0.06mV, I aVL V5 V6 Artifact precludes accurate interpretation
[2024-09-27] MEDS: Metoprolol 5 MG/5 ML VIAL 2.5 MG IVP (23:39)
[2024-09-28] VITALS (12 sets, daily range): BP systolic 117–150; BP diastolic 61–90; PULSE 58–118; RESP 2–22; TEMP 36.2–37.5; O2SAT 91–99
[2024-09-28] MEDS: Albuterol/Ipratropium 3 ML UPD VIAL UPD ×3 (00:18→11:27)
[2024-09-28] MEDS: Levothyroxine 50 MCG TAB PO (06:37)
[2024-09-28 07:24] LABS: HCT 45.4 % (36.0-46.0); HGB 14.7 g/dL (11.2-15.7); MCHC 32.4 % (32.0-36.0); MCV 90 fL (80-95); MPV 11.3 fL (8.0-11.0); Platelet Count 191 10^3/uL (130-400); RBC 5.07 10^6/uL (3.93-5.22); RDW 12.9 % (11.7-14.6); RDW-SD 42.3 fL; WBC 6.66 10^3/uL (4.4-10.8)
[2024-09-28 07:50] LABS: ALT 27 U/L (14-59); AST 38 U/L (15-37); Albumin 3.6 g/dL (3.4-5.0); Alkaline Phosphatase 83 U/L (46-116); Anion Gap 5.1 mmol/L (3-11); BUN 19 mg/dL (7-18); Bilirubin, Total 0.47 mg/dL (0.2-1.0); CO2 32.9 mmol/L (21.0-32.0); CREATININE 0.9 mg/dL (0.55-1.02); Calcium 9.5 mg/dL (8.5-10.1); Chloride 103 mmol/L (98-107); Estimated GFR 66.67 (mL/min/1.73m2); Glucose 98 mg/dL (74-106); Magnesium 1.9 mg/dL (1.8-2.4); Potassium 3.8 mmol/L (3.5-5.1); Sodium 141 mmol/L (136-145); Total Protein 7.2 g/dL (6.4-8.2)
[2024-09-28 07:59] LABS: Troponin I 20 ng/L (<or=51)
[2024-09-28] MEDS: Enoxaparin 40 MG/0.4 ML SYR SC (08:16)
[2024-09-28] MEDS: Citalopram 20 MG TAB 40 MG PO (08:16)
[2024-09-28] MEDS: amLODIPine 5 MG TAB PO (08:16)
[2024-09-28] MEDS: Normal Saline Flush 10 ML SYR IVP (08:16)
[2024-09-28] MEDS: predniSONE 20 MG TAB 40 MG PO (08:16)
[2024-09-28] MEDS: Doxycycline Hyclate 100 MG CAP PO (08:16)
[2024-09-28] MEDS: Furosemide 20 MG TAB PO (08:17)
[2024-09-28] MEDS: Potassium Chloride 20 MEQ TABCR PO (08:17)
[2024-09-28] MEDS: Aspirin E.C. 81 MG TABEC PO (08:17)
[2024-09-28] MEDS: Gabapentin 300 MG CAP PO (08:17)
[2024-09-28] MEDS: Metoprolol 25 MG TAB PO (08:17)
[2024-09-28] MEDS: Oseltamivir 30 MG CAP PO (08:17)
--- NOTE | 2024-09-28 09:21 | W.PM.PROGNOT ---
Date of Service Date of service: 09/28/24 Time of Service: 09:21 Assessment and Plan Assessment and plan (1) Influenza A: Start date: 09/27/24 Status: Acute Assessment and plan: -flu A positive in ED -She was initiated on Tamiflu, will continue (2) Acute exacerbation of chronic obstructive pulmonary disease (COPD): Start date: 09/27/24 Status: Acute Assessment and plan: -wheezing on exam in ED, likely precipitated by FLu A as noted above -continue nebulizers and inhalers (3) Acute on chronic respiratory failure with hypoxia: Status: Acute Assessment and plan: -secondary to COPD exacerbation and Flu A as noted above -normally on 2L NC HS, required up to 2L NC during the day on admission, now back to baseline no longer requiring NC during the day (4) Essential hypertension: Status: Chronic Assessment and plan: Continue outpatient medical therapy. (5) Hypothyroidism: Status: Chronic Assessment and plan: TSH is normal with continued outpatient dosing of supplement. (6) Lupus (systemic lupus erythematosus): Status: Chronic Assessment and plan: Patient not actively on any medical therapy though this problem could immunocompromised patient. Subjective Subjective Interval history since last seen: Patient states that she is feeling better and is happy she is no longer requiring supplemental oxygen. However, she states that she does not feel comfortable with going home and prefer to be discharged tomorrow. Exam Narrative Exam Narrative: Well-appearing elderly female laying in bed in no acute distress, ANO x 4, heart regular rhythm, lungs clear to auscultation bilaterally, abdomen soft, nontender, nondistended Objective Last Vital Signs Temp 98.6 F 09/28/24 07:52 Pulse 66 09/28/24 07:52 Resp 16 09/28/24 07:52 BP 135/63 09/28/24 07:52 Pulse Ox 97 09/28/24 07:52 Laboratory Results - last 24 hr 09/28/24 06:47 WBC 6.66 RBC 5.07 Hgb 14.7 Hct 45.4 MCV 90 MCH 29.0 MCHC 32.4 RDW 12.9 Plt Count 191 MPV 11.3 H Sodium 141 Potassium 3.8 Chloride 103 Carbon Dioxide 32.9 H Anion Gap 5.1 BUN 19 H Creatinine 0.9 Est GFR (CKD-EPI 2020) 66.67 Glucose 98 Calcium 9.5 Magnesium 1.9 Total Bilirubin 0.47 AST 38 H ALT 27 Alkaline Phosphatase 83 Troponin I 20 Total Protein 7.2 Albumin 3.6 Time Spent with Patient Time Spent with Patient: >50 minutes Time was spent: preparing to see the patient(eg.review tests), obtaining and/or reviewing separately otained hiistory, ordering medications,tests, procedures, referring, communicating with other health wound care nurse, indepentently interpreting results, counseling the patient and care coordination
--- NOTE | 2024-09-28 11:09 | DSE_ITS ---
Date of service: 09/28/24 Time of Service: 11:09 DS: Diagnosis Discharge Diagnosis (1) Influenza A: Status: Acute (2) Acute exacerbation of chronic obstructive pulmonary disease (COPD): Status: Acute (3) Acute on chronic respiratory failure with hypoxia: Status: Acute (4) Essential hypertension: Status: Chronic (5) Hypothyroidism: Status: Chronic (6) Lupus (systemic lupus erythematosus): Status: Chronic Discharge Plan Disposition Patient Disposition: Home Condition: Good Discharge Details Reason For Visit: Influenza A, COPD exacerbation with hypoxemia Admit Date/Time: 09/27/24 04:24 Admit Provider: Dionte Lawrence Attending Provider: Dionte Lawrence Primary Care Provider: [facility] [address] Hospital Course Hospital Course: Patient initially presented with signs and symptoms of shortness of breath and increased oxygen requirement with acute on chronic hypoxic respiratory failure secondary to influenza and COPD exacerbation. She was treated with Tamiflu, steroids and inhalers and had significant improvement of her symptoms. Additionally, patient was observed to have a brief period of new onset A-fib RVR overnight which was quickly converted after a one-time dose of IV 2.5 mg Lopressor and initiation of 25 mg p.o. Lopressor twice daily. She no longer requires oxygen during the day but continues to use her 2 L nasal cannula at night. At which time it is determined that the patient was stable for discharge home. Home Meds and New Rx's Prescriptions: New doxycycline hyclate 100 mg Capsule 100 mg PO BID Qty: 10 0RF prednisone 20 mg Tablet 40 mg PO DAILY 4 Days Qty: 8 0RF metoprolol tartrate 25 mg Tablet 25 mg PO BID Qty: 90 0RF oseltamivir 30 mg Capsule 30 mg PO BID 4 Days Qty: 8 0RF Continued alendronate 70 mg tablet 70 mg PO QWEEK Qty: 12 4RF nitroglycerin [Nitrostat] 0.4 mg tablet, sublingual 0.4 mg Sublingual Q5 MIN PRN X3 PRN (Reason: Chest Pain) Qty: 30 0RF epinephrine [EpiPen 2-Mikel] 0.3 mg/0.3 mL auto-injector 0.3 mg IM ONCE Qty: 1 3RF Combivent Respimat 20-100 mcg/actuation mist 1 puff Inhalation Q4H PRN (Reason: Exacerbation COPD) Qty: 4 4RF Rx Instructions: dispense 3 inhalers triamcinolone acetonide 0.1 % cream See Rx Instructions .ROUTE .COMPLEX Qty: 30 0RF Dose Instruction: APPLY 1 APPICATION TOPICALLY TWICE A DAY NEEDED FOR RASH Rx Instructions: APPLY 1 APPICATION TOPICALLY TWICE A DAY NEEDED FOR RASH Stiolto Respimat 2.5-2.5 mcg/actuation mist See Rx Instructions .ROUTE .COMPLEX Qty: 4 12RF Dose Instruction: INHALE TWO PUFFS BY MOUTH EVERY DAY Rx Instructions: INHALE TWO PUFFS BY MOUTH EVERY DAY atorvastatin 80 mg tablet 80 mg PO QPM Qty: 90 4RF amlodipine 5 mg tablet 5 mg PO DAILY Qty: 90 3RF citalopram 20 mg tablet 40 mg PO DAILY Qty: 180 4RF furosemide 20 mg tablet 20 mg PO DAILY Qty: 90 3RF Rx Instructions: [facility] [place] gabap[place] 300 mg capsule 300 mg PO 1 tab am, 2tabs pm Qty: 270 4RF levothyroxine 50 mcg tablet 50 mcg PO DAILY Qty: 90 4RF potassium chloride 20 mEq tablet,ER particles/crystals 20 meq PO DAILY Qty: 90 3RF lorazepam 0.5 mg tablet 0.5 mg PO BID MDD 2 tablets PRN (Reason: anxiety) Qty: 7 0RF ipratropium-albuterol 0.5 mg-3 mg(2.5 mg base)/3 mL solution for nebulization 3 ml inhalation Q6H PRNQty: 180 0RF aspirin 81 MG tablet,delayed release (DR/EC) 81 mg PO DAILY 0RF No Action (DME) Space Chamber Plus 1 EACH spacer 1 ea Miscellaneous PRN Qty: 1 0RF Discharge Instructions Activity:: Activity as Tolerated Equipment/Supplies:: No Equipment Needed Diet:: As Tolerated Discharge Orders Discharge Orders: Discharge Order (Routine); Ordered 09/28/24 Ordered By: Conor Paul DS: Summary Time Spent with Patient providing and/or coordinating discharge services: Greater than 30 minutes Status at Discharge Functional status at discharge: independent ambulation Overall status at discharge: patient is back to baseline Mental Status: mental status grossly normal Speech and Movement: speech and movement normal Mood: congruent mood Affect: normal affect Quality:SDOH Health Related Social Needs: No Data to Display Exam Narrative Exam Narrative: Well-appearing elderly female laying in bed in no acute distress, ANO x 4, heart regular rhythm, lungs clear to auscultation bilaterally, abdomen soft, nontender, nondistended Psych Mental Status: mental status grossly normal Speech and Movement: speech and movement normal Mood: congruent mood Affect: normal affect DS: Data Vitals/I&O Vitals and I&O: Vital Signs Temperature 98.6 F 09/28/24 07:52 Temperature Source Temporal Artery Scan 09/28/24 07:52 Pulse 66 09/28/24 07:52 Pulse Rhythm Regular 09/27/24 05:37 Respiratory Rate 16 09/28/24 07:52 Respiratory Effort Non-Labored 09/27/24 05:37 Respiratory Depth Shallow 09/27/24 05:37 Respiratory Pattern Normal 09/27/24 05:37 Blood Pressure 135/63 09/28/24 07:52 Blood Pressure Position Sitting 09/27/24 02:33 Pulse Oximetry 97 09/28/24 07:52 Oxygen Delivery Method Room Air 09/28/24 07:52 Oxygen Flow Rate 0 09/28/24 07:52 Pain Level 0 09/27/24 17:28 Comment RN Notified 09/27/24 21:26 Intake & Output 09/27/24 09/28/24 09/28/24 17:59 05:59 17:59 Intake Total 360 / 360 Output Total 200 / 200 Balance -200 / -200 360 / 360 Weight 110 lb 14.28 oz Intake: Oral 360 / 360 Output: Urine 200 / 200 Other: Urine Color Yellow Yellow Urine Appearance Clear Urine Odor None Comment pT voided independently voids independently per pt voided x1 Stool Size Small Stool Characteristics Formed Brown Data Completed and Pending Labs on day of discharge: Labs from last 24 hours 09/28/24 06:47 WBC 6.66 RBC 5.07 Hgb 14.7 Hct 45.4 MCV 90 MCH 29.0 MCHC 32.4 RDW 12.9 Plt Count 191 MPV 11.3 H Sodium 141 Potassium 3.8 Chloride 103 Carbon Dioxide 32.9 H Anion Gap 5.1 BUN 19 H Creatinine 0.9 Est GFR (CKD-EPI 2020) 66.67 Glucose 98 Calcium 9.5 Magnesium 1.9 Total Bilirubin 0.47 AST 38 H ALT 27 Alkaline Phosphatase 83 Troponin I 20 Total Protein 7.2 Albumin 3.6 PFSH All Active Problems (Updated 09/28/24 @ 09:22 by Conor Paul MD) Acute on chronic respiratory failure with hypoxia (Acute) Influenza A (Acute) Chronic hypoxic respiratory failure (Chronic) Acute respiratory failure with hypoxia (Acute) Acute exacerbation of chronic obstructive pulmonary disease (COPD) (Acute) COPD (chronic obstructive pulmonary disease) (Chronic) Essential hypertension (Chronic 09/03/14) Hypothyroidism (Chronic 09/03/14) Lupus (systemic lupus erythematosus) (Chronic 09/03/14) [place] [facility] [place]- [place]s 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 [facility] [place] been [place] on meds Anxiety (Chronic 09/03/14) Right carotid bruit (Acute) Osteoarthritis (Chronic) Osteoporosis (Chronic) ; left arm, started fosamax Shoulder pain, right (Acute) COVID-19 (Acute) Medical History Pharyngoesophageal dysphagia Normal larygoscopy 07/2020 CAD (coronary artery disease), elim ira coronary artery [place] [facility] [place] Hymenoptera allergy (12/04/14) NSTEMI (non-ST elevated myocardial infarction) Surgical History History of ankle surgery Family History Mother Asthma Father Diabetes Grandfather No problems noted. Grandfather No problems noted. Grandmother No problems noted. Grandmother No problems noted. Social History Smoking/Tobacco Use Status: Former Tobacco Use Tobacco: How many years used: 30 Second Hand Exposure: Yes Smoking risk assessment performed?: Yes Alcohol Intake: never Drug use: Never Substance use type: does not use Household members: children and other Details: 4 WITH 3 SONS Housing: house Duration: 15-30 minutes/day Frequency: 1-2 times per week Seatbelt use: always Do you feel safe at home: Yes Do you feel safe in your relationship?: Yes Time Spent with Patient Time Spent with Patient: <45 minutes Time was spent: preparing to see the patient(eg.review tests), obtaining and/or reviewing separately otained hiistory, ordering medications,tests, procedures, referring, communicating with other health palliative care nurse, indepentently interpreting results, counseling the patient and care coordination
--- NOTE | 2024-09-28 15:28 | PDOC.CMDIS ---
Date of service: 09/28/24 Time of Service: 15:28 LACE Index Scoring Tool Questions: Length of Stay (in days): 1 Was the patient admitted via the E.D.?: Yes Comorbidities: Previous M.I., Chronic Pulmonary Disease and Connective Tissue Disease E.D. Visits: 2 Answers: Total Score: 11 Risk of Readmission: High Risk Care Management Discharge Plan Reason for Hospitalization: Influenza A Discharge Plan: Thanh will be discharged home with no new services. She will follow up with her community providers and plan of care and transport with family. Patient/Family Education Needs: Review discharge instructions, discuss Ask Me Three SDOH Health Related Social Needs: No Data to Display
== END 2024-09-28 12:30 | disposition home or self-care (01) | DRG 193 ==
LOC: ER 04:32 → MS 05:16
PROVIDERS: Admitting Provider Family Medicine; Emergency Provider Emergency Medicine; PCP Nurse Practitioner Family; Responsible Provider Family Medicine; Visit Provider Family Medicine
DX: J10.1 Influenza due to other identified influenza virus with other respiratory manifestations (principal); J96.21 Acute and chronic respiratory failure with hypoxia; J96.22 Acute and chronic respiratory failure with hypercapnia; J44.1 Chronic obstructive pulmonary disease with (acute) exacerbation; I10 Essential (primary) hypertension; E03.9 Hypothyroidism, unspecified; M81.0 Age-related osteoporosis without current pathological fracture; F41.9 Anxiety disorder, unspecified; I25.10 Atherosclerotic heart disease of native coronary artery without angina pectoris; M32.9 Systemic lupus erythematosus, unspecified; I48.91 Unspecified atrial fibrillation; Z99.81 Dependence on supplemental oxygen; I25.2 Old myocardial infarction; Z79.899 Other long term (current) drug therapy
CPT/HCPCS: 00123; 36415; 80053; 82805; 85027; 87637; 93005; 94640; 96365; 96375; 99285; J1650; 71046; 81003; 81015; 83735; 83880; 84439; 84443; 84484; 85025; 93010; 94760; 99223; 99239; J0456; J2919; J7512; J7620

== ENCOUNTER 2024-10-17 13:00 | Outpatient (CLI) | payer MEDICARE, SELFPAY | END 2024-10-17 13:01 | disposition home or self-care (01) | PROVIDERS: PCP Nurse Practitioner Family; Visit Provider Nurse Practitioner Family | DX: R00.2 Palpitations (principal) | CPT/HCPCS: 93246 ==

== ENCOUNTER 2024-11-07 09:10 | Outpatient (CLI) | payer MEDICARE, SELFPAY ==
--- NOTE | 2024-11-07 09:48 | W.CARDEVENT ---
Date of service: 11/07/24 Time of Service: 09:48 Cardiac Event Recorder Referring Provider:: Loulou Hare Indications:: Atrial fibrillation Cardiac Event Note: This is a cardiac event monitor. Patient was monitored for 11 days and 6 hours. Predominant rhythm was sinus which was present 98% of the time. Average heart rate was 58. Minimum was 41, maximum 77. There was a 2% burden of atrial fibrillation. Heart rates while in atrial fibrillation were an average of 119, minimum 45, maximum 154 There were rare ventricular ectopic beats. There was no high-grade AV block, no pauses greater than 3 seconds. No symptoms were reported
== END 2024-11-07 09:11 | disposition home or self-care (01) ==
PROVIDERS: PCP Nurse Practitioner Family; Visit Provider Internal Medicine Cardiovascular Disease
DX: I48.91 Unspecified atrial fibrillation (principal)
CPT/HCPCS: 93248

== ENCOUNTER → 2024-11-24 14:18 | Outpatient (BNVA) | payer MEDICARE, SELFPAY | PROVIDERS: PCP Nurse Practitioner Family; Referring Provider Nurse Practitioner Family; Visit Provider Physician Assistant Surgical | DX: J43.1 Panlobular emphysema (principal); J96.11 Chronic respiratory failure with hypoxia | CPT/HCPCS: 94618; 99214 ==

== ENCOUNTER 2025-03-25 18:32 | Emergency (ER) | payer MEDICARE, SELFPAY ==
--- NOTE | 2025-03-25 18:30 | RT.EKG_ITS ---
APPROVED REPORT Exam: Resting ECG Reason for Exam: SOB Patient Location: E HR:60 bpm ECG Measurements Heart Rate 60 AXIS NJ 128 P 73 QRSd 72 QRS 38 QT 419 T 59 QTc 420 Conclusion Sinus rhythm, rate 60 No interval abnormalities No STEMI Compared to priors, rate has decreased
[2025-03-25 18:33] VITALS: BP 127/70; PULSE 64; RESP 18; TEMP 36.3; O2SAT 93
--- NOTE | 2025-03-25 19:15 | DI.RAD_ITS ---
Exam(s) XR CHEST 2V PA LATERAL EXAM: XR CHEST 2V PA LATERAL CLINICAL HISTORY: SOB. TECHNIQUE: 2D digital imaging was performed. COMPARISON: CR,XR XR CHEST 2V PA LATERAL from 09/27/2024 FINDINGS: 2 views: Heart size is normal. The mediastinum is not widened. Increased markings again noted throughout both lung fraire consistent with element of COPD. There are no confluent infiltrates nor pleural effusions. No pulmonary edema. No acute fractures. Again noted is a chronic fracture deformity of the left humeral head-neck. IMPRESSION: COPD. No acute infiltrates. No pulmonary edema DATA REPOSITORY: RADIATION DOSE DELIVERED:
--- NOTE | 2025-03-25 19:17 | ED.GENADUL_ITS ---
Discharge Plan Disposition Patient Disposition: Home Condition: Stable Discharge Details Clinical Impression: Acute exacerbation of chronic obstructive pulmonary disease Primary Care Provider: Loulou Hare ED Provider: Griselda Johnson Home Meds and New Rx's Prescriptions: New prednisone 20 mg tablet 40 mg PO DAILY 4 Days Qty: 8 0RF Rx Instructions: Start 03/26/2025 azithromycin 250 mg tablet 250 mg PO DAILY 4 Days Qty: 4 0RF Rx Instructions: start on day 2 of therapy (03/26/2025) No Action alendronate 70 mg tablet 70 mg PO QWEEK Qty: 12 4RF ipratropium-albuterol 0.5 mg-3 mg(2.5 mg base)/3 mL solution for nebulization 3 ml inhalation Q6H PRN (Reason: shortness of breath or wheezing) Qty: 180 0RF epinephrine [EpiPen 2-Mikel] 0.3 mg/0.3 mL auto-injector 0.3 mg IM ONCE Qty: 1 3RF nitroglycerin [Nitrostat] 0.4 mg tablet, sublingual 0.4 mg Sublingual Q5 MIN PRN X3 PRN (Reason: Chest Pain) Qty: 30 0RF metoprolol succinate 25 mg tablet extended release 24 hr 25 mg PO DAILY Qty: 90 3RF triamcinolone acetonide 0.1 % cream See Rx Instructions .ROUTE .COMPLEX Qty: 30 0RF Dose Instruction: APPLY 1 APPICATION TOPICALLY TWICE A DAY NEEDED FOR RASH Rx Instructions: APPLY 1 APPICATION TOPICALLY TWICE A DAY NEEDED FOR RASH Stiolto Respimat 2.5-2.5 mcg/actuation mist See Rx Instructions .ROUTE .COMPLEX Qty: 4 12RF Dose Instruction: INHALE TWO PUFFS BY MOUTH EVERY DAY Rx Instructions: INHALE TWO PUFFS BY MOUTH EVERY DAY atorvastatin 80 mg tablet 80 mg PO QPM Qty: 90 4RF amlodipine 5 mg tablet 5 mg PO DAILY Qty: 90 3RF citalopram 20 mg tablet 40 mg PO DAILY Qty: 180 4RF furosemide 20 mg tablet 20 mg PO DAILY Qty: 90 3RF Rx Instructions: [facility] [place] 300 mg capsule 300 mg PO 1 tab am, 2tabs pm Qty: 270 4RF levothyroxine 50 mcg tablet 50 mcg PO DAILY Qty: 90 4RF potassium chloride 20 mEq tablet,ER particles/crystals 20 meq PO DAILY Qty: 90 3RF Combivent Respimat 20-100 mcg/actuation mist See Rx Instructions .ROUTE .COMPLEX Qty: 12 12RF Dose Instruction: INHALE 1 PUFF BY MOUTH EVERY 4 HOURS NEEDED FOR EXACERBATION COPD Rx Instructions: INHALE 1 PUFF BY MOUTH EVERY 4 HOURS NEEDED FOR EXACERBATION COPD lorazepam 0.5 mg tablet 0.5 mg PO BID MDD 2 tablets PRN (Reason: anxiety) Qty: 7 0RF (DME) Space Chamber Plus 1 EACH spacer 1 ea Miscellaneous PRN Qty: 1 0RF aspirin 81 MG tablet,delayed release (DR/EC) 81 mg PO DAILY 0RF Discharge Instructions Instructions: Exacerbation of COPD (DC) Additional Instructions: You were seen in the emergency department today for evaluation of shortness of breath, likely due to a COPD exacerbation. In our department he had full physical examination performed, had an EKG that was reassuring and laboratory studies that did not show any sign of severe infection, damage to your heart, or dehydration. I recommend that you continue to use your inhalers and updraft at home for shortness of breath, I have started you on a course of prednisone and antibiotics. You will take these medications for the next 4 days, please take them all until they are gone, even if you start to feel better. Please follow-up with your primary care provider in the next few days to discuss this visit and any symptoms that change, worsen, or persist. Thank you for allowing us to be part of your care. HPI General Mode of arrival: ambulatory . Date/Time Provider Initiated Documentation: 03/25/25 18:47 . Limitations to Documentation: no limitations . Information obtained by: patient, family and old records reviewed . HPI Narrative: This is a 74-year-old female patient presenting for evaluation of shortness of breath x 1 week. She reports that her breathing has been gradually worsening, she has a history of COPD and has been using her inhalers and updrafts as usual. States that she has oxygen that she wears at night, but has not had to increase it. She reports that she is feeling some discomfort in her bilateral upper back along the ribs, reports a mild cough and states that she wishes she could bring up sputum because she feels like there is some stuck in her chest no chest pain,. No fevers or chills, has been tolerating oral intake without change from her baseline. Denies other acute symptoms or concerns. Related Data Home Medications ?Medication ?Instructions ?Recorded ?Confirmed inhalational spacing device (Space ##1 01/11/18 Chamber Plus) aspirin 81 mg tablet,delayed 81 mg PO DAILY 03/01/18 0 03/25/25 release triamcinolone acetonide 0.1 % See Rx Instructions .Rou te 03/03/24 03/25/25 topical cream .COMPLEX #30 grams tiotropium 2.5 mcg-olodaterol 2.5 See Rx Instructions .Route 05/09/24 03/25/25 mcg/actuation mist for inhalation .COMPLEX #4 grams (Stiolto Respimat) atorvastatin 80 mg tablet 80 mg PO QPM #90 tabs 03/25/25 amlodipine 5 mg tablet 5 mg PO DAILY #90 tabs 08/2703/25/25 citalopram 20 mg tablet 40 mg (2 x 20 mg) PO DAILY # 180 08/27/24 03/25/25 tab-caps furosemide 20 mg tablet 20 mg PO DAILY #90 tabs 08/0703/25/25 gabapentin 300 mg capsule 300 mg PO 1 tab am, 2tabs pm #270 08/27/24 03/25/25 tabs levothyroxine 50 mcg tablet 50 mcg PO DAILY #90 tab-ca ps 08/27/24 03/25/25 potassium chloride 20 mEq 20 meq PO DAILY #90 tabs 03/25/25 tablet,extended release(part/cryst) epinephrine 0.3 mg/0.3 mL 0.3 mg (0.3 mL) IM ONCE #1 e a 10/09/24 03/25/25 injection, auto-injector (EpiPen 2-Mikel) metoprolol succinate 25 mg 25 mg PO DAILY #90 tabs 01/2803/25/25 tablet,extended release 24 hr nitroglycerin 0.4 mg sublingual 0.4 mg sublingual Q5 M IN PRN X3 10/09/24 03/25/25 tablet (Nitrostat) PRN Chest Pain #30 tabs ipratropium 20 mcg-albuterol 100 See Rx Instructions . Route 10/14/24 03/25/25 mcg/actuation mist for inhalation .COMPLEX #12 grams (Combivent Respimat) alendronate 70 mg tablet 70 mg PO QWEEK #12 tabs 04/0 03/3003/25/25 ipratropium 0.5 mg-albuterol 3 mg 3 ml inhalation Q6H PRN shortness 11/11/24 03/25/25 (2.5 mg base)/3 mL nebulization of breath or wheezing #180 mL soln lorazepam 0.5 mg tablet 0.5 mg PO BID PRN anxiety #7 tabs 01/01/25 03/25/25 azithromycin 250 mg tablet 250 mg PO DAILY 4 days #4 t abs 03/25/25 prednisone 20 mg tablet 40 mg (2 x 20 mg) PO DAILY 4 days 03/25/25 #8 tabs Previous Rx's ?Medication ?Instructions ?Recorded inhalational spacing device (Space ##1 01/11/18 Chamber Plus) aspirin 81 mg tablet,delayed 81 mg PO DAILY 03/01/18 release triamcinolone acetonide 0.1 % See Rx Instructions .Rou te 03/03/24 topical cream .COMPLEX #30 grams tiotropium 2.5 mcg-olodaterol 2.5 See Rx Instructions .Route 05/09/24 mcg/actuation mist for inhalation .COMPLEX #4 grams (Stiolto Respimat) atorvastatin 80 mg tablet 80 mg PO QPM #90 tabs amlodipine 5 mg tablet 5 mg PO DAILY #90 tabs 08/27 citalopram 20 mg tablet 40 mg (2 x 20 mg) PO DAILY # 180 08/27/24 tab-caps furosemide 20 mg tablet 20 mg PO DAILY #90 tabs 08/07 09/30 gabapentin 300 mg capsule 300 mg PO 1 tab am, 2tabs pm #270 08/27/24 tabs levothyroxine 50 mcg tablet 50 mcg PO DAILY #90 tab-ca ps 08/27/24 potassium chloride 20 mEq 20 meq PO DAILY #90 tabs tablet,extended release(part/cryst) epinephrine 0.3 mg/0.3 mL 0.3 mg (0.3 mL) IM ONCE #1 e a 10/09/24 injection, auto-injector (EpiPen 2-Mikel) metoprolol succinate 25 mg 25 mg PO DAILY #90 tabs 01/28 tablet,extended release 24 hr nitroglycerin 0.4 mg sublingual 0.4 mg sublingual Q5 M IN PRN X3 10/09/24 tablet (Nitrostat) PRN Chest Pain #30 tabs ipratropium 20 mcg-albuterol 100 See Rx Instructions . Route 10/14/24 mcg/actuation mist for inhalation .COMPLEX #12 grams (Combivent Respimat) alendronate 70 mg tablet 70 mg PO QWEEK #12 tabs 04/0 03/30 ipratropium 0.5 mg-albuterol 3 mg 3 ml inhalation Q6H PRN shortness 11/11/24 (2.5 mg base)/3 mL nebulization of breath or wheezing #180 mL soln lorazepam 0.5 mg tablet 0.5 mg PO BID PRN anxiety #7 tabs 01/01/25 azithromycin 250 mg tablet 250 mg PO DAILY 4 days #4 t abs 03/25/25 prednisone 20 mg tablet 40 mg (2 x 20 mg) PO DAILY 4 days 03/25/25 #8 tabs Allergies Allergy/AdvReac Type Severity Reaction Status Date / Time bee venom protein (honey bee) Allergy Severe Anaphylaxsi Verified 03/25/25 18:37 s tetanus toxoid, adsorbed Allergy Severe swelling,fe Verified 03/25/25 18:37 geneva benzonatate (From Tessalon Allergy Mild rash Verified 03/25/25 18:37 Perles) sulfamethoxazole Allergy Itching Verified 03/25/25 18:37 amoxicillin trihydrate (From AdvReac Intermediate Diarrhea - Verified 03/25/25 18:37 Augmentin) Severe potassium clavulanate (From AdvReac Intermediate Diarrhea - Verified 03/25/25 18:37 Augmentin) Severe General Stated Complaint: SOB HOLLIS: 3 Exam Narrative Exam Narrative: Gen: Awake and alert, in no apparent distress HEENT: Non-icteric sclera Neck: Supple Lungs: No apparent respiratory distress, normal respiratory effort, but the lung sounds are quite diminished throughout. No audible wheezing, rhonchi, rales CV: Appears well perfused, heart with regular rate and rhythm, strong distal pulses, no tenderness to palpation over the chest Abdomen: Non-distended, soft, nontender MSK: Moves 4 extremities without apparent limitation in ROM, no crepitus or deformity though there is some mild tenderness to palpation along the posterior ribs bilaterally. No overlying skin changes. No peripheral edema, no unilateral calf swelling or tenderness. Skin: Visualized skin without rashes, cyanosis. Neuro: Normal Gait, no obvious focal deficits or facial asymmetry. Speaks in full, clear sentences. Psych: Appropriate for situation. Course Vital Signs Vital signs: Vital Signs Temperature 36.3 C L 03/25/25 18:33 Pulse 64 03/25/25 18:33 Respiratory Rate 18 03/25/25 18:33 Blood Pressure 127/70 03/25/25 18:33 Pulse Oximetry 93 03/25/25 18:33 Temperature 36.3 C L 03/25/25 18:33 Temperature Source Temporal Artery Scan 03/25/25 18:33 Pulse 64 03/25/25 18:33 Respiratory Rate 18 03/25/25 18:33 Blood Pressure 127/70 03/25/25 18:33 Pulse Oximetry 93 03/25/25 18:33 Oxygen Delivery Method Room Air 03/25/25 18:33 Oxygen Flow Rate 0 03/25/25 18:33 Pain Level 5 03/25/25 18:33 Medical Decision Making This is a 74-year-old female patient presenting for evaluation of shortness of breath. Differential includes but is not limited to COPD exacerbation, pneumonia, bronchitis, considered ACS, pericarditis and myocarditis. Considered heart failure exacerbation though the patient is reassuringly without evidence of fluid overload on physical examination. Her exam and history is less concerning for pulmonary embolism and in this patient with no tachycardia or new hypoxia I feel that reactive airway disease is a much more compelling diagnosis. We will obtain chest x-ray, CBC, CMP, magnesium, troponin, BNP, and will provide her with a duo nebulizer and prednisone. I obtained and reviewed an EKG which shows a sinus rhythm without evidence of ischemia, interval abnormality, or ectopy. The patient is not requiring any supplemental oxygen at this time. -I independently interpreted the laboratory studies, which show no significant leukocytosis, anemia, or thrombocytopenia. The chemistry panel is without evidence of electrolyte abnormality, kidney dysfunction, or liver injury. Troponin is negative and without interval increase in 1 hour delta recheck. She has a very modest elevation in her BNP but no evidence of pulmonary edema on her chest x-ray. Her chest x-ray is otherwise without evidence of pneumonia and just shows chronic appearing COPD changes. On reassessment the patient reports improvement in her symptoms, her lung sounds are now more open and clear, and I provided her with her first dose of azithromycin for her COPD exacerbation. A prescription for prednisone and azithromycin was sent to her pharmacy, and at this time, the patient has had a full medical evaluation and is safe for discharge to home. They are hemodynamically stable, ambulatory, and tolerating PO. They are understanding of the follow-up plan and return precautions. They left our facility without incident. 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 seen at [facility] [place] [place] - has been stable on meds Anxiety (Chronic 09/03/14) Right carotid bruit (Acute) Osteoarthritis (Chronic) Osteoporosis (Chronic) -2121; left arm, started fosamax Shoulder pain, right (Acute) COVID-19 (Acute) Medical History Pharyngoesophageal dysphagia Normal larygoscopy 07/2020 CAD (coronary artery disease), [place] coronary artery sees cardiology at [facility] [place] [place] yearly Hymenoptera allergy (12/04/14) NSTEMI (non-ST elevated myocardial infarction) Surgical History History of ankle surgery Family History Mother Asthma Father Diabetes Grandfather No problems noted. Grandfather No problems noted. Grandmother No problems noted. Grandmother No problems noted. Social History Smoking/Tobacco Use Status: Former Tobacco Use Tobacco: How many years used: 30 Second Hand Exposure: Yes Smoking risk assessment performed?: Yes Alcohol Intake: never Drug use: Never Substance use type: does not use Household members: children and other Details: 4 WITH 3 SONS Housing: house Duration: 15-30 minutes/day Frequency: 1-2 times per week Seatbelt use: always Do you feel safe at home: Yes Do you feel safe in your relationship?: Yes
[2025-03-25] MEDS: Acetaminophen 500 MG TAB 1000 MG PO (19:23)
[2025-03-25] MEDS: predniSONE 20 MG TAB 60 MG PO (19:24)
[2025-03-25] MEDS: Albuterol/Ipratropium 3 ML UPD VIAL UPD (19:24)
[2025-03-25 19:49] LABS: Abs Immature Grans 0.02 10^3/uL (0.0-0.06); HCT 42.7 % (36.0-46.0); HGB 13.8 g/dL (11.2-15.7); Immature Grans % 0.2 %; MCH 28.6 pg (27.0-33.0); MCHC 32.3 % (32.0-36.0); MCV 88 fL (80-95); MPV 11.6 fL (8.0-11.0); Platelet Count 209 10^3/uL (130-400); RBC 4.83 10^6/uL (3.93-5.22); RDW 12.9 % (11.7-14.6); RDW-SD 41.8 fL; WBC 9.23 10^3/uL (4.4-10.8)
[2025-03-25 19:52] VITALS: BP 127/70; PULSE 64; RESP 18; RESP 22; TEMP 36.3; O2SAT 93
[2025-03-25 20:14] LABS: ALT 24 U/L (14-59); AST 21 U/L (15-37); Albumin 3.9 g/dL (3.4-5.0); Alkaline Phosphatase 95 U/L (46-116); Anion Gap 4.9 mmol/L (3-11); BUN 15 mg/dL (7-18); Bilirubin, Total 0.5 mg/dL (0.2-1.0); CO2 35.1 mmol/L (21.0-32.0); Calcium 9.4 mg/dL (8.5-10.1); Chloride 102 mmol/L (98-107); Estimated GFR 76.31 (mL/min/1.73m2); Glucose 112 mg/dL (74-106); Magnesium 1.9 mg/dL (1.8-2.4); NT-proBNP 506 pg/mL (<300); Potassium 3.8 mmol/L (3.5-5.1); Sodium 142 mmol/L (136-145); Total Protein 6.9 g/dL (6.4-8.2); Troponin I 15 ng/L (<or=51)
--- NOTE | 2025-03-25 20:24 | DI.VRAD_ITS ---
PROCEDURE INFORMATION: Exam: XR Chest Exam date and time: 03/25/2025 8:08 PM Age: 74 years old Clinical indication: Shortness of breath TECHNIQUE: Imaging protocol: Radiologic exam of the chest. Views: 2 views. COMPARISON: CR XR CHEST 2V PA LATERAL 09/27/2024 3:26 AM FINDINGS: Lungs: No gross focal pulmonary consolidation is seen. Pleural spaces: No pleural effusion or pneumothorax is demonstrated. Heart/Mediastinum: The heart appears normal in size. Vasculature: There is atherosclerotic calcification at the apex of the aortic arch. Bones/joints: Gross deformity of the proximal left humerus with an appearance suggesting a prior humeral neck fracture and gross deformity of the humeral head, stable compared with the prior exam from September 27, 2024. Thoracic kyphosis. IMPRESSION: 1. No active disease is seen in the chest. 2. Gross deformity of the proximal left humerus with an appearance suggesting a prior humeral neck fracture and gross deformity of the humeral head, stable compared with the prior exam from September 27, 2024. Dictated and Authenticated by: Marlon Etienne MD. Orderin [facility]. Jamal Villalobos MD
[2025-03-25] MEDS: Azithromycin 250 MG TAB 500 MG PO (20:48)
[2025-03-25 21:12] LABS: Troponin I 14 ng/L (<or=51)
[2025-03-25 21:30] VITALS: BP 145/51; PULSE 62; RESP 16; O2SAT 94
== END 2025-03-25 21:32 | disposition home or self-care (01) ==
PROVIDERS: Emergency Provider Emergency Medicine; PCP Nurse Practitioner Family
DX: J44.1 Chronic obstructive pulmonary disease with (acute) exacerbation (principal); R06.02 Shortness of breath
CPT/HCPCS: 99284 ×2; 94640; 36415; 80053; 93005; 71046; 83735; 83880; 84484; 85025; 93010; J7512; J7620

== ENCOUNTER → 2025-04-22 11:28 | Outpatient (BNVA) | payer MEDICARE, SELFPAY | PROVIDERS: PCP Nurse Practitioner Family; Referring Provider Nurse Practitioner Family; Visit Provider Internal Medicine Pulmonary Disease | DX: J43.1 Panlobular emphysema (principal); J96.11 Chronic respiratory failure with hypoxia; Z87.891 Personal history of nicotine dependence | CPT/HCPCS: 94618; 99214 ==

== ENCOUNTER 2025-07-24 01:02 | Outpatient (CLI) | payer MEDICARE, SELFPAY ==
[2025-07-24] MEDS: Inhaler, Assist Device 1 EACH MC (14:31)
[2025-07-24] MEDS: Levalbuterol HFA 15 GM INH 4 PUFF IH (14:34)
--- NOTE | 2025-07-27 08:18 | W.PFT ---
Date of service: 07/24/25 Time of Service: 13:05 Pulmonary Function Test Result Indications: COPD Impression 1. Good patient effort was noted. ATS standards for reproducibility were met. 2. Spirometry showed severe obstructive lung disease with an FEV1 of 35% (0.61 L) 3. Following the administration of a bronchodilator there was not a significant response 4. TLC and RV were elevated, consistent with air trapping 5. DLCO was 42%, consistent with a severe defect in alveolar gas exchange
== END 2025-07-24 01:03 | disposition home or self-care (01) ==
LOC: RT 01:02
PROVIDERS: PCP Nurse Practitioner Family; Visit Provider Internal Medicine Pulmonary Disease
DX: J43.1 Panlobular emphysema (principal)
CPT/HCPCS: 94060; 94726; 94729